=== PATIENT | female | born 1970 | race Caucasian/White ===

== ENCOUNTER → 2020-02-25 08:04 | Outpatient (BNVA) | payer MEDICARE, MEDICAID, SELFPAY | PROVIDERS: PCP Physician Assistant; Referring Provider Physician Assistant; Visit Provider Internal Medicine Endocrinology, Diabetes & Metabolism | DX: E03.8 Other specified hypothyroidism (principal); E06.3 Autoimmune thyroiditis; E55.9 Vitamin D deficiency, unspecified; Z79.899 Other long term (current) drug therapy | CPT/HCPCS: 99212 ==

== ENCOUNTER → 2020-03-08 13:33 | Outpatient (BNVA) | payer MEDICARE, MEDICAID, SELFPAY | PROVIDERS: PCP Physician Assistant; Referring Provider Physician Assistant; Visit Provider Physician Assistant | DX: R14.0 Abdominal distension (gaseous) (principal); Z80.0 Family history of malignant neoplasm of digestive organs | CPT/HCPCS: 99212 ==

== ENCOUNTER → 2020-12-28 12:04 | Outpatient (BNVA) | payer MEDICARE, MEDICAID, SELFPAY | PROVIDERS: PCP Physician Assistant; Visit Provider Physician Assistant | CPT/HCPCS: Q3014 ==

== ENCOUNTER 2021-01-05 15:52 | Outpatient (REF) | payer MEDICARE, MEDICAID, SELFPAY ==
[2021-01-05 16:13] LABS: MANUAL DIFF FLAG NO
[2021-01-05 16:23] LABS: Basophils Absolute Auto 0.1 X10*3/uL (0.0-0.2); Basophils Percent Auto 0.4 % (0-2); Eosinophils Absolute Auto 0.1 X10*3/uL (0.0-0.4); Eosinophils Percent Auto 0.9 % (0-4); Hematocrit 45.8 % (37-47); Hemoglobin 15.7 g/dl (12.0-16.0); Imm Gran Abs Auto 0.04 X10*3/uL (0.00-0.03); Imm Gran Pct Auto 0.4 % (0.0-0.4); Lymphocytes Absolute Auto 4.1 X10*3/uL (1.2-4.9); Lymphocytes Percent Auto 36.9 % (20-40); Mean Corpuscular HGB Conc 34.3 g/dl (31.0-35.0); Mean Corpuscular Hemoglobin 30.1 pg (27.0-33.0); Mean Corpuscular Volume 87.9 fL (80-98); Mean Platelet Volume 9.1 fL (9.4-12.3); Monocytes Absolute Auto 0.8 X10*3/uL (0.1-1.2); Monocytes Percent Auto 6.9 % (2-11); Neutrophils Absolute Auto 6.1 X10*3/uL (2.0-8.3); Neutrophils Percent Auto 54.5 % (45-73); Platelet Count 341 X10*3/uL (160-400); Red Blood Count 5.21 X10*6/uL (4.20-5.50); Red Cell Distribution Width 12.8 % (11.0-16.0); White Blood Count 11.1 X10*3/uL (4.8-10.8)
[2021-01-05 16:45] LABS: Alanine Aminotransferase 18 U/L (0-31); Albumin Level 4.5 g/dL (3.5-5.0); Alkaline Phosphatase 70 U/L (39-117); Anion Gap 18 (12-20); Aspartate Amino Transferase 18 U/L (5-31); Bilirubin Total 0.4 mg/dL (0.0-1.0); Blood Urea Nitrogen 9 mg/dL (9-16); Calcium 9.7 mg/dL (8.4-10.2); Carbon Dioxide 20 mmol/L (22-29); Chloride 102 mmol/L (96-108); Estimated Glomerular Filt Rate > 60; Glucose Random 137 mg/dL (60-115); Sodium 136 mmol/L (135-145); Total Protein 7.4 g/dL (6.5-8.0)
== END 2021-01-05 15:53 | disposition home or self-care (01) ==
LOC: HO.LAB 15:52
PROVIDERS: Visit Provider Physician Assistant
DX: R10.11 Right upper quadrant pain (principal); R13.10 Dysphagia, unspecified; A04.8 Other specified bacterial intestinal infections
CPT/HCPCS: 80053; 85025; 87338

== ENCOUNTER → 2021-07-28 07:25 | Outpatient (BNVA) | payer MEDICARE, MEDICAID, SELFPAY | PROVIDERS: PCP Physician Assistant; Referring Provider Physician Assistant; Visit Provider Nurse Practitioner | DX: R10.10 Upper abdominal pain, unspecified (principal); K58.1 Irritable bowel syndrome with constipation; R55 Syncope and collapse; J44.9 Chronic obstructive pulmonary disease, unspecified; D12.6 Benign neoplasm of colon, unspecified; Z80.0 Family history of malignant neoplasm of digestive organs | CPT/HCPCS: 99212 ==

== ENCOUNTER 2021-08-01 11:08 | Outpatient (REF) | payer MEDICARE, MEDICAID, SELFPAY ==
[2021-08-01 11:22] LABS: MANUAL DIFF FLAG NO
[2021-08-01 11:50] LABS: Basophils Percent Auto 0.3 % (0-2); Eosinophils Absolute Auto 0.1 X10*3/uL (0.0-0.4); Eosinophils Percent Auto 0.6 % (0-4); Hematocrit 41.9 % (37.0-47.0); Hemoglobin 13.9 g/dl (12.0-16.0); Imm Gran Abs Auto 0.02 X10*3/uL (0.00-0.03); Imm Gran Pct Auto 0.3 % (0.0-0.4); Lymphocytes Absolute Auto 2.2 X10*3/uL (1.2-4.9); Lymphocytes Percent Auto 28.2 % (20-40); Mean Corpuscular HGB Conc 33.2 g/dl (31.0-35.0); Mean Corpuscular Hemoglobin 29.3 pg (27.0-33.0); Mean Corpuscular Volume 88.4 fL (80.0-98.0); Mean Platelet Volume 9.4 fL (9.4-12.3); Monocytes Absolute Auto 0.4 X10*3/uL (0.1-1.2); Monocytes Percent Auto 4.9 % (2-11); Neutrophils Absolute Auto 5.1 x10*3/uL (2.0-8.3); Neutrophils Percent Auto 65.7 % (45-73); Platelet Count 308 X10*3/uL (160-400); Red Blood Count 4.74 X10*6/uL (4.20-5.50); Red Cell Distribution Width 13.1 % (11.0-16.0); White Blood Count 7.8 X10*3/uL (4.8-10.8)
[2021-08-01 12:37] LABS: Alanine Aminotransferase 15 U/L (0-31); Albumin Level 4.4 g/dL (3.5-5.0); Alkaline Phosphatase 56 U/L (39-117); Amylase 72 U/L (28-100); Anion Gap 11 (12-20); Aspartate Amino Transferase 14 U/L (5-31); Bilirubin Total 0.5 mg/dL (0.0-1.0); Blood Urea Nitrogen 9 mg/dL (9-16); Calcium 9.7 mg/dL (8.4-10.2); Carbon Dioxide 29 mmol/L (22-29); Chloride 102 mmol/L (96-108); Estimated Glomerular Filt Rate > 60; Glucose Random 102 mg/dL (60-115); Lipase 20 U/L (8-78); Sodium 138 mmol/L (135-145); Total Protein 7.2 g/dL (6.5-8.0)
[2021-08-04 13:07] LABS: Transglutaminase Ab IgG <1.0 U/mL; Transglutaminase IgA <1.0 U/mL
== END 2021-08-01 11:09 | disposition home or self-care (01) ==
LOC: HO.LAB 11:08
PROVIDERS: PCP Physician Assistant; Visit Provider Nurse Practitioner
DX: Z01.82 Encounter for allergy testing (principal); R10.10 Upper abdominal pain, unspecified; K86.1 Other chronic pancreatitis; Z80.0 Family history of malignant neoplasm of digestive organs; J44.9 Chronic obstructive pulmonary disease, unspecified; R55 Syncope and collapse
CPT/HCPCS: 36415; 80053; 82150; 83690; 85025; 86003; 86364

== ENCOUNTER → 2021-09-01 09:17 | Outpatient (BNVA) | payer MEDICARE, MEDICAID, SELFPAY | PROVIDERS: PCP Physician Assistant; Referring Provider Physician Assistant; Visit Provider Nurse Practitioner | DX: K58.9 Irritable bowel syndrome, unspecified (principal) | CPT/HCPCS: 99212 ==

== ENCOUNTER 2021-09-21 09:13 | Outpatient (REF) | payer MEDICARE, MEDICAID, SELFPAY ==
[2021-09-21 11:40] LABS: Creatinine Urine 76.34 mg/dL; Microalbum/Creatinine Ratio Ur 6.5 ug/mg cr
[2021-09-21 11:58] LABS: Free T4 (Free Thyroxine) 1.58 ng/dL (0.71-1.85); Thyroid Stimulating Hormone 0.55 uIU/mL (0.32-4.0); Vitamin D 25-OH Total 9.4 ng/mL (>30)
== END 2021-09-21 09:14 | disposition home or self-care (01) ==
LOC: HO.LAB 09:13
PROVIDERS: Absent Provider Physician Assistant; PCP Physician Assistant; Visit Provider Internal Medicine Endocrinology, Diabetes & Metabolism
DX: E03.9 Hypothyroidism, unspecified (principal); I10 Essential (primary) hypertension
CPT/HCPCS: 36415; 82043; 82306; 84439; 84443

== ENCOUNTER 2021-10-04 08:25 | Outpatient (REF) | payer MEDICARE, MEDICAID, SELFPAY ==
--- NOTE | ~2021-10-04 | XR_ITS ---
EXAMINATION: XR LUMBOSACRAL SPINE CLINICAL INFORMATION: Low back pain. COMPARISON: None TECHNIQUE: Three views of the lumbosacral spine. FINDINGS: There are 5 lumbar-type vertebral bodies that are normal in height. Grade 1 retrolisthesis L3 on L4. Degenerative disc disease L4-L5 and L5-S1 with associated anterior degenerative osteophytes. Increased density at the level of the facet joints also at these lower lumbar levels suggestive of facet osteoarthropathy. The posterior elements are intact. The remaining intervertebral disc spaces are well preserved. Limited views of the sacrum and sacroiliac joints are unremarkable. Vascular calcifications of the aorta. XR/XR lumbar spine 2-3V IMPRESSION: Degenerative changes of the lower lumbar spine at the L4-L5 and L5-S1 levels as described above.
== END 2021-10-04 08:26 | disposition home or self-care (01) ==
LOC: HO.XRAY 08:25
PROVIDERS: Absent Provider Physician Assistant; PCP Physician Assistant; Referring Provider Nurse Practitioner; Visit Provider Internal Medicine Cardiovascular Disease
DX: M54.50 Low back pain, unspecified (principal); R55 Syncope and collapse; R07.89 Other chest pain
CPT/HCPCS: 72100; 93005; 99202

== ENCOUNTER → 2021-10-07 07:26 | Outpatient (REF) | payer MEDICARE, MEDICAID, SELFPAY ==
--- NOTE | 2021-10-07 07:29 | CA_ITS ---
Transthoracic Echocardiogram Patient (Last, First, Middle): Basilia Sawyer, Gender: Female Date of : 1970 Age: 51 Procedure Date: 10/07/2021 Procedure Type: Transthoracic Echocardiogram Location: OP Height: 165.1 cm Weight: 58.97 kg BSA: 1.65 m2 Heart Rate: bpm BP: 130 / 80 mmHg Harness Mender: TO Referring MD: Ab Mcdonough MD Symptoms: R55 - Syncope and collapse Study Quality: Fair ECG Rhythm: Sinus Conclusions: - The left ventricular systolic function is normal. The calculated ejection fraction is 59% by biplane method. - No obvious valvular pathology seen on this study. Findings Left Ventricle Normal left ventricular cavity size. There is normal left ventricular wall thickness. The left ventricular systolic function is normal. The calculated ejection fraction is 59% by biplane method. There is no evidence of regional wall motion abnormalities. Diastolic function is normal for age. Right Ventricle Normal right ventricular cavity size and systolic function. Atria Both atria are normal in size. Aortic Valve There is a normal trileaflet aortic valve. There is no aortic valve stenosis. There is no aortic valve regurgitation. Mitral Valve The mitral valve appears normal. There is trace mitral valve regurgitation. There is no mitral valve stenosis. Pulmonic Valve The pulmonic valve is likely normal. Tricuspid Valve Normal tricuspid valve structure. There is trace tricuspid valve regurgitation. The pulmonary artery systolic pressure is normal. Great Vessels The aortic annulus, sinuses of valsalva, and asc aorta are normal in size. Venous The inferior vena cava is normal in size and collapses greater than 50% with inspiration. Pericardium/Pleural There is no evidence of pericardial effusion. Prior Study Comparison No prior study available for comparison. Recommendations, Care & Conclusions No obvious valvular pathology seen on this study. Measurements 2D Linear Measurements IVSd: 0.79 0.6-0.9/0.6-1.0 cm LVIDd: 4.49 3.9-5.3/4.2-5.9 cm LVIDd Index: 2.72 2.4-3.2/2.2-3.1 cm/m2 LVIDs: 3.31 2.0-3.6 cm LVPWd: 0.77 0.7-1.1 cm LA Diam: 3.30 2.7-3.8/3.0-4.0 cm LAIDs Index: 2.00 1.5-2.3 cm/m2 LV Mass: 135.71 67-162/88-224 g LV Mass Index: 82.25 43-95/49-115 g/m2 LVOT Diam: 2.00 3.0+(-)1.3 cm 2D Systolic Function EF 4C: 59.70 >55% EF 2C: 53.00 >55% EF BiP: 58.90 >55% Mitral Valve MV Pk E: 0.75 MV PK A: 0.69 MV Decel Time: 185.00 E/A: 1.10 E'Lateral: 12.50 E'Medial: 9.03 E/E' Med: 8.30 E/E' Lat: 6.00 PHT: 54.00 MVA PHT: 4.07 Decel Dade: 4.08 Aortic Valve AoV Pk Patrick: 1.25 AoV Mn Patrick: 0.91 AoV VTI: 0.31 AoV Pk Grad: 6.00 Aov Mn Grad: 4.00 MEIR Cont.VTI: 1.91 LVOT LVOT Pk Patrick: 0.90 LVOT Mn Patrick: 0.56 LVOT VTI: 0.19 LVOT Pk Grad: 3.00 LVOT Mn Grad: 1.00 LVOT Diam: 2.00 LVOT Area: 3.14 Diastolic Function MV Pk E: 0.75 MV Pk A: 0.69 E/A: 1.10 E'Medial: 9.03 E/E' Med: 8.30 E' Laterial: 12.50 E/E' Lat: 6.00 Right Ventricle TAPSE (mm): 20.00 TVS' Patrick: 10.80 Tricuspid Valve TR Pk Patrick: 2.13 TR Pk Grad: 18.00 RA Press: 3.00 RVSP: 21.00 Great Vessels Aorta Sinus of Valsalva: 3.23 2.0-3.5 cm Ao Asc: 3.10 2.1-3.4 cm Updated in Other Vendor System with Status of Final Ambrose Matta MD electronically signed on 10/09/2021 11:35:01 AM with status of Final
--- NOTE | 2021-10-07 07:30 | HM_ITS ---
* Total monitoring time 3 days. * Underlying rhythm is sinus. Average rate 82/Min. Range 45 to 166/Min. * About 19% the time, rate > 100/Min; sinus tachycardia. * No atrial fibrillation or flutter or AV blocks or pauses. * Rare PVCs. Minimal burden. * No patient events. MTDD
== END ==
LOC: HO.CARD 07:26
PROVIDERS: PCP Physician Assistant; Visit Provider Internal Medicine Cardiovascular Disease
DX: R55 Syncope and collapse (principal)
CPT/HCPCS: 93242; 93306

== ENCOUNTER → 2021-10-11 07:48 | Outpatient (REF) | payer MEDICARE, MEDICAID, SELFPAY ==
--- NOTE | ~2021-10-11 | NM_ITS ---
EXAMINATION: NM RADIONUCLIDE SOLID FOOD GASTRIC EMPTYING 4-HOUR STUDY CLINICAL INFORMATION: Upper abdominal pain. COMPARISON: None. TECHNIQUE: A standard meal consisting of 4 oz of Egg Beaters brand tagged with 890 microcuries Tc-99m Sulfur Colloid, 8 oz water and 3/4 slices of toast with jelly was administered orally to the patient. Images were obtained using a dual head gamma camera in the anterior and posterior projections over of the stomach immediately post ingestion and at hourly intervals up to 4 hours post ingestion. The anterior and posterior counts at each time interval were averaged using the geometric mean and expressed as percentage of the immediate post ingestion counts. FINDINGS: There is good visualization of activity in the stomach immediately post ingestion. As the study progresses, there is good clearance of activity from the stomach and visualization of progressively increasing small bowel activity. By the end of the study, there is almost no retention noted in the stomach. Retention in the stomach at each time interval was: 1 hour 79% (normal 37%-90%) 2 hours 36% (normal 30%-60%) 3 hours 11% 4 hours 9% (normal 0%-10%) NM/NM gastric emptying study IMPRESSION: Normal 4-hour solid food gastric emptying study.
== END ==
LOC: HO.NUCMED 07:48
PROVIDERS: PCP Physician Assistant; Visit Provider Nurse Practitioner
DX: R10.10 Upper abdominal pain, unspecified (principal); K86.1 Other chronic pancreatitis; Z80.0 Family history of malignant neoplasm of digestive organs
CPT/HCPCS: 78264; A9541

== ENCOUNTER 2021-10-20 14:53 | Outpatient (RCR) | payer MEDICARE, MEDICAID, SELFPAY ==
--- NOTE | 2021-10-20 15:52 | MHC.PT.EP ---
[facility] [place] Office [place] Office [place] Office [address] Fe Lainez [address] [phone] F: [phone] F: [phone] F: [phone] F: [phone] Physical Therapy Plan of Care Date of Evaluation: Date of Surgery: Diagnosis: unspecified thoracic, thoracolumbar and lumbosacral IVD disorder Assessment: 51 y/o F referred to PT with thoracic, thoracolumbar, and lumbosacral intervertebral disorder. She reports LBP of insidious onset that worsened with carrying groceries up 3 flights of stairs. 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 Sitting is most painful. Examination shows decreased lumbar AROM, decreased hip/core strength, hypomobile L4-5, increased pain, and impaired postural awareness. Recommend PT 2x/week (pt would prefer 1x/week) for 5 weeks to address impairments, implement HEP, and optimize functional mobility. Frequency and Duration: The patient will be seen 1x/week for 5 weeks Short Term Goals: 3 weeks 1. I with HEP 2. Improve lumbar AROM to 75% to faciliate dressing Mcc Goals: 5 weeks 1. I with HEP and self management of sx 2. Pt will be able to sit > 30 min with pain < 3/10 and use of lumbar roll 3. Pt will be able to walk > 3 miles with pain < 3/10 Treatment Plan: Modalities to reduce pain, spasms and effusion. Manual therapy to restore motion and function. Therapeutic exercise to improve strength and flexibility. Neuromuscular re-education for posture and balance. Therapeutic activities to return to functional activities of daily living. Electronically signed by: Ca Austin PT Please sign and return to therapist. Thank you for your referral.
--- NOTE | 2021-11-15 16:01 | MHC.PT.DC ---
[facility] [place] Office [place] Office [place] Office [address] Fe Lainez [address] [phone] F: [phone] F: [phone] F: [phone] F: [phone] Physical Therapy Discharge Report Diagnosis: unspecified thoracic, thoracolumbar and lumbosacral IVD disorder Date of Surgery: Date of Evaluation: 10/20/21 Date of Discharge: 11/15/21 Treatments to Date: 1 Cancellations to Date: 5 No Shows to Date: 0 Discharge Status: Patient Elected to Stop Discharge Summary: Pt called to self d/c following evaluation due to pain levels. EVAL: 51 y/o F referred to PT with thoracic, thoracolumbar, and lumbosacral intervertebral disorder. She reports LBP of insidious onset that worsened with carrying groceries up 3 flights of stairs. 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 Sitting is most painful. Examination shows decreased lumbar AROM, decreased hip/core strength, hypomobile L4-5, increased pain, and impaired postural awareness. Recommend PT 2x/week (pt would prefer 1x/week) for 5 weeks to address impairments, implement HEP, and optimize functional mobility. Electronically signed by: Ca Austin PT Please sign and return to therapist. Thank you for your referral.
== END 2021-11-15 16:02 | disposition home or self-care (01) ==
LOC: HO.PT 14:53
PROVIDERS: PCP Physician Assistant; Visit Provider Physician Assistant
DX: M51.9 Unspecified thoracic, thoracolumbar and lumbosacral intervertebral disc disorder (principal)
CPT/HCPCS: 97110; 97112; 97161

== ENCOUNTER → 2021-10-21 07:51 | Outpatient (BNVA) | payer MEDICARE, MEDICAID, SELFPAY | PROVIDERS: PCP Physician Assistant; Visit Provider Internal Medicine Endocrinology, Diabetes & Metabolism | DX: K57.92 Diverticulitis of intestine, part unspecified, without perforation or abscess without bleeding (principal); K86.1 Other chronic pancreatitis; E03.8 Other specified hypothyroidism; E06.3 Autoimmune thyroiditis; E55.9 Vitamin D deficiency, unspecified | CPT/HCPCS: 99212 ==

== ENCOUNTER 2021-11-15 08:37 | Outpatient (REF) | payer MEDICARE, MEDICAID, SELFPAY ==
--- NOTE | ~2021-11-15 | CT_ITS ---
EXAMINATION: CT ABDOMEN WITHOUT CONTRAST CLINICAL INFORMATION: Upper abdominal pain. COMPARISON: Nuclear medicine gastric emptying study 10/11/2021. TECHNIQUE: Contiguous axial thin section helical images of the abdomen were performed without contrast. The data set was reformatted in the coronal and sagittal planes and reviewed on an independent workstation. This CT examination was performed using dose optimization techniques as appropriate, variously including the following: *Automated exposure control *Adjustment of mA and/or kV according to patient size (this includes techniques or standardized protocols for targeted exams where dose is matched to indication/reason for exam; i.e. extremities or head) *Use of iterative reconstruction technique DLP: 194 mGy-cm FINDINGS: LUNG BASES: Minimal atelectatic changes seen in the right lung base. The heart size is normal. LIVER, GALLBLADDER, BILIARY TREE: The liver is homogeneous in density, normal size and contour. There is a 1.5 cm lesion adjacent to the ligament teres extending to the tamara hepatis question small cyst. No additional lesions seen. There is no intrahepatic ductal dilatation. The gallbladder is unremarkable. PANCREAS: The pancreas is homogeneous in density, normal size and shape. No focal lesion seen. SPLEEN: The spleen is normal size and density. ADRENAL GLANDS AND KIDNEYS: Bilateral adrenal glands are normal size and shape. Both kidneys are normal size and shape. No radiopaque calculi or hydronephrosis seen. There is no perinephric stranding. BOWEL LOOPS: There is scattered stool and gas seen in the colon without distention. Oral contrast opacified small bowel loops are unremarkable. The stomach is nondistended with oral contrast within. Small umbilical hernia containing fat is noted LYMPH NODES: No abnormal retroperitoneal or mesenteric lymph nodes seen. VASCULAR: Unremarkable. BONES: There is vacuum disc phenomena L4-L5, L5-S1 disc levels with ventral spurring. No fracture or lytic process seen. CT/CT abdomen wo con IMPRESSION: Likely left hepatic lobe cyst adjacent to the ligament teres. Moderate constipation. The small bowel loops are unremarkable. Fleischner guidelines were followed.
[2021-11-15] MEDS: Barium Sulfate Oral (Berry) 450 ML ORAL.SUSP 900 ML PO (10:02)
== END 2021-11-15 08:38 | disposition home or self-care (01) ==
LOC: HO.CT 08:37
PROVIDERS: PCP Physician Assistant; Visit Provider Nurse Practitioner
DX: R10.10 Upper abdominal pain, unspecified (principal); K86.1 Other chronic pancreatitis; Z80.0 Family history of malignant neoplasm of digestive organs
CPT/HCPCS: 74150

== ENCOUNTER 2021-12-27 03:35 | Emergency (ER) | payer MEDICARE, MEDICAID, SELFPAY ==
--- NOTE | ~2021-12-27 | XR_ITS ---
EXAMINATION: XR CHEST CLINICAL INFORMATION: Shortness of breath. Sweats. COMPARISON: 09/17/2019 TECHNIQUE: 2 views of the chest were obtained. FINDINGS: Normal symmetric lung volumes. No parenchymal consolidation. No pleural effusion. No pneumothorax. Cardiomediastinal silhouette and pulmonary vascularity are within normal limits. No acute osseous abnormalities. XR/XR chest 2V IMPRESSION: No acute findings
[2021-12-27 03:51] VITALS: BP 200/100; BP 204/114; PULSE 69; PULSE 70; RESP 14; O2SAT 100; O2SAT 99; BMI 21.6
[2021-12-27 03:54] VITALS: BP 204/114; PULSE 69; RESP 14; O2SAT 99
[2021-12-27 04:00] VITALS: BP 204/114; PULSE 69; RESP 14; O2SAT 99
--- NOTE | 2021-12-27 04:18 | ECG_ITS ---
Test Reason : DIZZINESS Blood Pressure : / mmHG Vent. Rate : 059 BPM Atrial Rate : 059 BPM P-R Int : 162 ms QRS Dur : 088 ms QT Int : 414 ms P-R-T Axes : 048 075 079 degrees QTc Int : 409 ms Sinus bradycardia Otherwise normal ECG No previous ECGs available Referred By: Lowell Crabtree Electronically Signed By:FABIÁN MONTES
--- NOTE | 2021-12-27 04:22 | ED.GENADULT ---
HPI - General Adult General Chief complaint: General Medical Stated complaint: HTN Time Seen by Provider: 12/27/21 04:11 Source: patient Limitations: no limitations History of Present Illness HPI narrative: This is a 51-year-old female who complains of night sweats that began over a week ago. The patient has also had a feeling of tightness in her left chest more recently in the last few days. She has also had a sensation at times as though she is crawling out of her skin. She has a chronic cough secondary to smoking, denies any change. She feels mildly short of breath. She has had diarrhea recently. She has had nausea but no vomiting. She denies abdominal pain. She does have history of hypertension and takes lisinopril. She states she went through menopause over 10 years ago. Related Data Home Medications Medication Instructions Recorded Confirmed sennosides 8.6 mg tablet (senna) 17.2 mg PO BEDTIME PRN constipation 10/21/21 Previous Rx's Medication Instructions Recorded lisinopril 10 mg tablet 10 mg PO DAILY 90 days #90 tabs 07/04/21 levothyroxine 100 mcg tablet 100 mcg PO QAM 30 days #30 caps 10/03/21 cholecalciferol (vitamin D3) 125 125 mcg PO DAILY #30 caps 10/21/21 mcg (5,000 unit) capsule cholecalciferol (vitamin D3) 50 50 mcg PO DAILY #30 caps 10/21/21 mcg (2,000 unit) capsule Allergies Allergy/AdvReac Type Severity Reaction Status Date / Time amoxicillin [From AUGMENTIN] Allergy Severe Anaphylaxis Verified 10/21/21 08:38 clavulanic acid Allergy Severe Anaphylaxis Verified 10/21/21 08:38 [From AUGMENTIN] Compazine Allergy Unknown unknown Verified 10/21/21 08:38 ketorolac [From Toradol] Allergy Unknown Anaphylaxis Verified 10/21/21 08:38 prochlorperazine Allergy Unknown INVOLUNTARY Verified 10/21/21 08:38 [From COMPAZINE] SPASMS Review of Systems Review of Systems: Yes all other systems are reviewed and are negative Constitutional: Constitutional: Reports as per HPI, Denies fever(s) and Reports night sweats Eyes: Eyes: Reports as per HPI and Reports no additional eye complaints ENT: Reports system reviewed and no additional complaints, except as documented, Reports as per HPI, Denies nasal congestion, Denies nasal discharge and Denies sore throat Cardiovascular: Cardiovascular: Reports as per HPI, Reports chest pain and Reports dyspnea Respiratory: Respiratory: Reports as per HPI, Reports cough and Reports dyspnea Gastrointestinal: Gastrointestinal: Reports as per HPI, Denies abdominal pain, Reports diarrhea and Denies vomiting Genitourinary: Genitourinary: Reports as per HPI, Denies hematuria, Denies urinary frequency and Denies dysuria Musculoskeletal: Musculoskeletal: Reports no additional musculoskeletal complaints and Denies numbness Integumentary/Breasts: Skin/Breast: Reports as per HPI and Denies rash Neurologic: Reports as per HPI, Denies focal weakness and Denies numbness Psychiatric: Psychiatric: Reports no additional psychiatric complaints and Reports as per HPI Endocrine: Endocrine: Reports no additional endocrine complaints and Reports as per HPI Hematologic/Lymphatic: Hematologic/Lymphatic: Reports no additional hematologic/lymphatic complaints, Reports as per HPI and Reports other (No peripheral edema) [facility] Past Medical History Medical History Dysphagia Hx of CT scan Hypothyroidism Vitamin D deficiency Surgical History History of throat surgery Hx of section Hx of tonsillectomy Family History Family History Mother Alzheimer's dementia CVD (cardiovascular disease) Father Colon cancer Maternal Grandfather Pancreatic cancer Social History Social History Household Members Other:: lives at home with 20-year-old daughter Housing: Apartment Alcohol intake: never Patient Tobacco Use Status: Current everyday Tobacco user Tobacco use type: Cigarette Cigarettes Per Day: 10 e-Cigarette/Vaping Use: Never Used Second Hand Smoke Exposure: No Use of substances other than those prescribed or required for medical reasons: Yes Substance Use Type: Marijuana Substance Use Frequency: Occasionally Advance Directives: No Patient : No service: No Current occupational status: disabled Cognitive needs: No Hearing needs: No Vision needs: No Physical Exam ED Vital Signs: Vital Signs - 24 hr 12/27/21 03:51 12/27/21 03:54 12/27/21 04:00 Pulse Rate 69 69 69 Respiratory Rate 14 14 14 Blood Pressure 204/114 H 204/114 H 204/114 H Pulse Oximetry 99 99 99 Oxygen Delivery Method Room Air Room Air Room Air BMI result Body Mass Index 21.6 Const General: no acute distress Orientation/consciousness: patient oriented x3 HENMT Head: Yes normal to inspection General nose exam: Normal external nose present Mouth: moist mucous membranes Throat: Yes posterior oropharynx normal, Yes tonsils normal and Yes uvula midline Eyes Eyelids: Yes eyelids normal Conjunctivae: conjunctivae normal Pupils: Equal, round and reactive pupils present Neck Neck: Yes supple Resp Effort & Inspection: normal respiratory effort Auscultation: clear to auscultation bilaterally Cardio Rate: regular rate Rhythm: regular rhythm Heart sounds: S1 normal heart sound present, S2 normal heart sound present, no gallops, no murmurs and no rubs GI Inspection: No distended Palpation (GI): Soft to palpation and nontender Auscultation: normal bowel sounds Skin General skin exam: other (Warm and dry) Neuro General: patient oriented x3 and CN's II-XI intact bilaterally Cranial nerves: Yes Equal, round and reactive pupils present Extrem General: Yes no pedal edema Psych Affect: normal affect Attitude: cooperative Medical Decision Making MDM Narrative Medical decision making narrative: Patient with multiple complaints, does have moderate hypertension, is on lisinopril. Blood pressure improved with an additional 10 mg of lisinopril here, as well as Ativan, IV fluids. Patient reports night sweats, palpitations, mild shortness of breath, diarrhea. Patient did have PVCs on the monitor. CBC, chemistry, magnesium, urinalysis and a chest x-ray, and EKG normal. Patient is safe for outpatient follow-up. Recommend patient double her lisinopril to 20 mg daily, follow-up with her PCP and canvas goods fabricator Lab Data Lab results reviewed: Yes I reviewed the patient's lab results. Result diagrams: 12/27/21 04:59 12/27/21 04:59 Labs: Lab Results 12/27/21 12/27/21 12/27/21 Range/Units 04:59 04:59 04:59 WBC 10.3 (4.8-10.8) X10*3/uL RBC 4.77 (4.20-5.50) X10*6/uL Hgb 14.2 (12.0-16.0) g/dl Hct 40.4 (37.0-47.0) % MCV 84.7 (80.0-98.0) fL MCH 29.8 (27.0-33.0) pg MCHC 35.1 H (31.0-35.0) g/dl RDW 12.8 (11.0-16.0) % Plt Count 270 (160-400) X10*3/uL MPV 8.9 L (9.4-12.3) fL Immature Gran % (Auto) 0.3 (0.0-0.4) % Neut % (Auto) 79.1 H (45-73) % Lymph % (Auto) 15.3 L (20-40) % Stanton % (Auto) 3.8 (2-11) % Eos % (Auto) 1.1 (0-4) % Baso % (Auto) 0.4 (0-2) % Lymph # (Auto) 1.6 (1.2-4.9) X10*3/uL Stanton # (Auto) 0.4 (0.1-1.2) X10*3/uL Eos # (Auto) 0.1 (0.0-0.4) X10*3/uL Baso # (Auto) 0.0 (0.0-0.2) X10*3/uL Abs Immat Gran (auto) 0.03 (0.00-0.03) X10*3/uL Absolute Neuts (auto) 8.2 (2.0-8.3) x10*3/uL Absolute Nucleated RBC 0.000 (0.0-0.012) X10*3/uL Nucleated RBC % (auto) 0.0 (0.0-0.2) /100WBC Sodium 141 (135-145) mmol/L Potassium 4.1 (3.3-5.1) mmol/L Chloride 106 (96-108) mmol/L Carbon Dioxide 22 (22-29) mmol/L Anion Gap 17 (12-20) BUN 7 L (9-16) mg/dL Creatinine 0.70 (0.5-1.4) mg/dL Estim Creat Clear Calc 84.6 Estimated GFR > 60 Random Glucose 106 (60-115) mg/dL Calcium 9.5 (8.4-10.2) mg/dL Magnesium 1.9 (1.6-2.6) mg/dL Total Bilirubin 0.5 (0.0-1.0) mg/dL AST 18 (5-31) U/L ALT 12 (0-31) U/L Alkaline Phosphatase 52 (39-117) U/L Troponin I High Sens < 3.5 (<3.5-17.0) ng/L Total Protein 7.3 (6.5-8.0) g/dL Albumin 4.2 (3.5-5.0) g/dL TSH (0.32-4.0) uIU/mL Urine Color Urine Appearance Urine pH (5.0-8.0) Ur Specific Mather (1.005-1.025) Urine Protein (Neg-Trace) mg/dL Urine Glucose (UA) (Negative) mg/dL Urine Ketones (Negative) mg/dL Urine Blood (Negative) Urine Nitrite (Negative) Ur Leukocyte Esterase (Negative) 12/27/21 12/27/21 Range/Units 04:59 04:59 WBC (4.8-10.8) X10*3/uL RBC (4.20-5.50) X10*6/uL Hgb (12.0-16.0) g/dl Hct (37.0-47.0) % MCV (80.0-98.0) fL MCH (27.0-33.0) pg MCHC (31.0-35.0) g/dl RDW (11.0-16.0) % Plt Count (160-400) X10*3/uL MPV (9.4-12.3) fL Immature Gran % (Auto) (0.0-0.4) % Neut % (Auto) (45-73) % Lymph % (Auto) (20-40) % Stanton % (Auto) (2-11) % Eos % (Auto) (0-4) % Baso % (Auto) (0-2) % Lymph # (Auto) (1.2-4.9) X10*3/uL Stanton # (Auto) (0.1-1.2) X10*3/uL Eos # (Auto) (0.0-0.4) X10*3/uL Baso # (Auto) (0.0-0.2) X10*3/uL Abs Immat Gran (auto) (0.00-0.03) X10*3/uL Absolute Neuts (auto) (2.0-8.3) x10*3/uL Absolute Nucleated RBC (0.0-0.012) X10*3/uL Nucleated RBC % (auto) (0.0-0.2) /100WBC Sodium (135-145) mmol/L Potassium (3.3-5.1) mmol/L Chloride (96-108) mmol/L Carbon Dioxide (22-29) mmol/L Anion Gap (12-20) BUN (9-16) mg/dL Creatinine (0.5-1.4) mg/dL Estim Creat Clear Calc Estimated GFR Random Glucose (60-115) mg/dL Calcium (8.4-10.2) mg/dL Magnesium (1.6-2.6) mg/dL Total Bilirubin (0.0-1.0) mg/dL AST (5-31) U/L ALT (0-31) U/L Alkaline Phosphatase (39-117) U/L Troponin I High Sens (<3.5-17.0) ng/L Total Protein (6.5-8.0) g/dL Albumin (3.5-5.0) g/dL TSH 0.85 (0.32-4.0) uIU/mL Urine Color Yellow Urine Appearance Clear Urine pH 7.0 (5.0-8.0) Ur Specific Mather <= 1.005 (1.005-1.025) Urine Protein Negative (Neg-Trace) mg/dL Urine Glucose (UA) Negative (Negative) mg/dL Urine Ketones Negative (Negative) mg/dL Urine Blood Negative (Negative) Urine Nitrite Negative (Negative) Ur Leukocyte Esterase Negative (Negative) Imaging Data Chest x-ray: Radiologist's impression: No acute pathology ECG Data Attestation: I personally reviewed and interpreted this ECG as follows: Interpretation: Sinus rhythm rate of 59. No ST elevation or depression. No ectopy. Normal QRS axis. Note: PVCs seen occasionally on the monitor Discharge Plan Discharge Clinical Impression: HTN (hypertension), Night sweats, Frequent PVCs Patient Disposition: Home, Self-Care Instructions: Hypertension (ED), Premature Ventricular Contractions (ED) Additional Instructions: Follow-up with your primary care physician, as well as your canvas goods fabricator. Double your lisinopril to 20 mg daily. Return for any new or worsened symptoms. Prescriptions: No Action lisinopril 10 mg tablet 10 mg PO DAILY 90 Days Qty: 90 1RF levothyroxine 100 mcg tablet 100 mcg PO QAM 30 Days Qty: 30 3RF cholecalciferol (vitamin D3) 125 mcg (5,000 unit) capsule 125 mcg PO DAILY Qty: 30 5RF cholecalciferol (vitamin D3) 50 mcg (2,000 unit) capsule 50 mcg PO DAILY Qty: 30 5RF sennosides [senna] 8.6 mg tablet 17.2 mg PO BEDTIME PRN (Reason: constipation) Interventions: ED Discharge Assessment Last Done: 12/27/21 06:05 Discharge Date/Time: 12/27/21 06:07
[2021-12-27] MEDS: LORazepam 1 MG TABLET PO (04:50)
[2021-12-27] MEDS: lisinopriL 10 MG TABLET PO (04:50)
[2021-12-27] MEDS: 0.9 % Sodium Chloride 1,000 ML 999 ML IV (05:00)
[2021-12-27 05:05] LABS: Basophils Percent Auto 0.4 % (0-2); Eosinophils Absolute Auto 0.1 X10*3/uL (0.0-0.4); Eosinophils Percent Auto 1.1 % (0-4); Hematocrit 40.4 % (37.0-47.0); Hemoglobin 14.2 g/dl (12.0-16.0); Imm Gran Abs Auto 0.03 X10*3/uL (0.00-0.03); Imm Gran Pct Auto 0.3 % (0.0-0.4); Lymphocytes Absolute Auto 1.6 X10*3/uL (1.2-4.9); Lymphocytes Percent Auto 15.3 % (20-40); MANUAL DIFF FLAG NO; Mean Corpuscular HGB Conc 35.1 g/dl (31.0-35.0); Mean Corpuscular Hemoglobin 29.8 pg (27.0-33.0); Mean Corpuscular Volume 84.7 fL (80.0-98.0); Mean Platelet Volume 8.9 fL (9.4-12.3); Monocytes Absolute Auto 0.4 X10*3/uL (0.1-1.2); Monocytes Percent Auto 3.8 % (2-11); Neutrophils Absolute Auto 8.2 x10*3/uL (2.0-8.3); Neutrophils Percent Auto 79.1 % (45-73); Platelet Count 270 X10*3/uL (160-400); Red Blood Count 4.77 X10*6/uL (4.20-5.50); Red Cell Distribution Width 12.8 % (11.0-16.0); White Blood Count 10.3 X10*3/uL (4.8-10.8)
[2021-12-27 05:15] LABS: Appearance Urine Clear; Color Urine Yellow; Glucose Urine UA Negative (Negative); Leukocyte Esterase Urine Negative (Negative); Nitrite Urine Negative (Negative); Specific Gravity - Urine <= 1.005 (1.005-1.025); Urine Blood Negative (Negative); Urine Ketones Negative (Negative); Urine Protein Negative (Neg-Trace)
[2021-12-27 05:24] LABS: Troponin-I High Sensitivity < 3.5 ng/L (<3.5-17.0)
[2021-12-27 05:27] LABS: Alanine Aminotransferase 12 U/L (0-31); Albumin Level 4.2 g/dL (3.5-5.0); Alkaline Phosphatase 52 U/L (39-117); Anion Gap 17 (12-20); Aspartate Amino Transferase 18 U/L (5-31); Bilirubin Total 0.5 mg/dL (0.0-1.0); Blood Urea Nitrogen 7 mg/dL (9-16); Calcium 9.5 mg/dL (8.4-10.2); Carbon Dioxide 22 mmol/L (22-29); Chloride 106 mmol/L (96-108); Creatinine Clr Calc Pharmacy 84.6; Estimated Glomerular Filt Rate > 60; Glucose Random 106 mg/dL (60-115); Magnesium 1.9 mg/dL (1.6-2.6); Potassium 4.1 mmol/L (3.3-5.1); Sodium 141 mmol/L (135-145); Total Protein 7.3 g/dL (6.5-8.0)
[2021-12-27 05:44] LABS: TSH reflex Free T4 0.85 uIU/mL (0.32-4.0)
== END 2021-12-27 06:07 | disposition home or self-care (01) ==
PROVIDERS: Emergency Provider Emergency Medicine; PCP Physician Assistant
DX: I10 Essential (primary) hypertension (principal); R61 Generalized hyperhidrosis; I49.3 Ventricular premature depolarization; F17.200 Nicotine dependence, unspecified, uncomplicated
CPT/HCPCS: 36415; 71046; 80053; 81003; 83735; 84443; 84484; 85025; 93005; 99283; 99285

== ENCOUNTER 2021-12-29 10:25 | Outpatient (REF) | payer MEDICARE, MEDICAID, SELFPAY ==
[2021-12-29 11:24] LABS: Hematocrit 40.9 % (37.0-47.0); Hemoglobin 13.9 g/dl (12.0-16.0); Mean Corpuscular Hemoglobin 29.8 pg (27.0-33.0); Mean Corpuscular Volume 87.6 fL (80.0-98.0); Mean Platelet Volume 9.6 fL (9.4-12.3); Platelet Count 303 X10*3/uL (160-400); Red Blood Count 4.67 X10*6/uL (4.20-5.50); Red Cell Distribution Width 13.2 % (11.0-16.0); White Blood Count 7.9 X10*3/uL (4.8-10.8)
[2021-12-29 12:15] LABS: Anion Gap 17 (12-20); Blood Urea Nitrogen 9 mg/dL (9-16); Calcium 9.7 mg/dL (8.4-10.2); Carbon Dioxide 24 mmol/L (22-29); Chloride 103 mmol/L (96-108); Estimated Glomerular Filt Rate > 60; Glucose Random 103 mg/dL (60-115); Potassium 3.9 mmol/L (3.3-5.1); Rheumatoid Factor < 15.0 IU/mL (<15.0); Sodium 140 mmol/L (135-145)
[2021-12-31 23:12] LABS: Anti Nuclear Antibody Screen NEGATIVE (NEGATIVE)
[2022-01-03 12:53] LABS: Anti DNA DS Antibody 2 IU/mL
== END 2021-12-29 10:26 | disposition home or self-care (01) ==
LOC: HO.LAB 10:25
PROVIDERS: Absent Provider Physician Assistant; PCP Physician Assistant; Visit Provider Internal Medicine Endocrinology, Diabetes & Metabolism
DX: R00.2 Palpitations (principal)
CPT/HCPCS: 36415; 80048; 85027; 86038; 86039; 86225; 86431

== ENCOUNTER → 2022-01-13 08:53 | Outpatient (REF) | payer MEDICARE, MEDICAID, SELFPAY | LOC: HO.CARD 08:53 | PROVIDERS: Visit Provider Internal Medicine Cardiovascular Disease | DX: Z13.89 Encounter for screening for other disorder (principal) ==

== ENCOUNTER 2022-02-17 13:17 | Outpatient (REF) | payer MEDICARE, MEDICAID, SELFPAY ==
--- NOTE | ~2022-02-17 | CT_ITS ---
EXAMINATION: CT CHEST SCREENING CLINICAL INFORMATION: Current smoker. 38 pack year history. COMPARISON: Previous chest x-ray most recent November 2021 TECHNIQUE: Multidetector volumetric CT imaging of the chest is performed without contrast using low dose technique. Additional 2D coronal and sagittal reformatted images and axial 3D maximum intensity projection (MIP) images are generated on the CT workstation. This CT examination was performed using dose optimization techniques as appropriate, variously including the following: *Automated exposure control *Adjustment of mA and/or kV according to patient size (this includes techniques or standardized protocols for targeted exams where dose is matched to indication/reason for exam; i.e. extremities or head) *Use of iterative reconstruction technique DLP: 44 mGy-cm FINDINGS: LUNGS: There is evidence of emphysema. There is a 2 mm peripheral or subpleural right lower lobe nodule adjacent to the major fissure axial image 324 series 5. This probably represents a subpleural lymph node. There is subsegmental atelectasis in the right lower lobe adjacent to the diaphragmatic pleural surface. The lungs are otherwise clear. No endobronchial or endotracheal lesion. MEDIASTINUM: The mediastinum is normal. CORONARY ARTERY CALCIFICATION: Mild to moderate PLEURA: There is no pleural effusion. No pleural mass or thickening. AXILLA: No lymphadenopathy. UPPER ABDOMEN: Unremarkable OSSEOUS STRUCTURES: Unremarkable. CT/CT lung screening IMPRESSION: Emphysema. Small right lower lobe pulmonary nodule. Mild to moderate coronary artery calcification. ASSESSMENT: Lung-RADS category 2: Benign RECOMMENDATION: Annual low-dose chest CT follow-up recommended.
== END 2022-02-17 13:18 | disposition home or self-care (01) ==
LOC: HO.CT 13:17
PROVIDERS: Absent Provider Internal Medicine Endocrinology, Diabetes & Metabolism; PCP Physician Assistant; Visit Provider Physician Assistant Medical
DX: Z12.2 Encounter for screening for malignant neoplasm of respiratory organs (principal); F17.210 Nicotine dependence, cigarettes, uncomplicated
CPT/HCPCS: 71271; G0296

== ENCOUNTER 2022-03-03 12:34 | Outpatient (REF) | payer MEDICARE, MEDICAID, SELFPAY ==
[2022-03-03 15:27] LABS: TSH reflex Free T4 0.23 uIU/mL (0.32-4.0)
[2022-03-03 15:28] LABS: Vitamin D 25-OH Total 58.2 ng/mL (>30)
== END 2022-03-03 12:35 | disposition home or self-care (01) ==
LOC: HO.LAB 12:34
PROVIDERS: Absent Provider Internal Medicine Endocrinology, Diabetes & Metabolism; PCP Physician Assistant; Referring Provider Physician Assistant; Visit Provider Internal Medicine Cardiovascular Disease
DX: R07.89 Other chest pain (principal); R00.2 Palpitations; E55.9 Vitamin D deficiency, unspecified; E03.8 Other specified hypothyroidism; E06.3 Autoimmune thyroiditis
CPT/HCPCS: 36415; 82306; 84439; 84443; 93005; 99212

== ENCOUNTER → 2022-03-07 10:41 | Outpatient (BNVA) | payer MEDICARE, MEDICAID, SELFPAY | PROVIDERS: PCP Physician Assistant; Visit Provider Internal Medicine Endocrinology, Diabetes & Metabolism | DX: E03.8 Other specified hypothyroidism (principal); E06.3 Autoimmune thyroiditis; E55.9 Vitamin D deficiency, unspecified; R63.4 Abnormal weight loss; R00.2 Palpitations | CPT/HCPCS: 99212 ==

== ENCOUNTER 2022-03-08 07:23 | Outpatient (REF) | payer MEDICARE, MEDICAID, SELFPAY ==
[2022-03-08 08:58] LABS: Cortisol Random 6.1 ug/dL
[2022-03-12 16:08] LABS: Metanephrine, Free 64 pg/mL (<=57); Normetanephrines, Free 213 pg/mL (<=148); Total Metanephrine, Free 277 pg/mL (<=205)
== END 2022-03-08 07:24 | disposition home or self-care (01) ==
LOC: HO.LAB 07:23
PROVIDERS: PCP Physician Assistant; Visit Provider Internal Medicine Endocrinology, Diabetes & Metabolism
DX: R00.2 Palpitations (principal); R63.4 Abnormal weight loss
CPT/HCPCS: 36415; 82533; 83835

== ENCOUNTER → 2022-03-10 08:44 | Outpatient (BNVA) | payer MEDICARE, MEDICAID, SELFPAY | PROVIDERS: PCP Physician Assistant; Visit Provider Internal Medicine Pulmonary Disease | DX: J43.9 Emphysema, unspecified (principal) | CPT/HCPCS: 99202 ==

== ENCOUNTER 2022-03-17 08:27 | Outpatient (REF) | payer MEDICARE, MEDICAID, SELFPAY ==
[2022-03-27 06:21] LABS: Metanephrine, Free 24U 103 mcg/24 h (90-315); Normetanephrine, Free 24U 185 mcg/24 h (122-676); Total Metanephrine, Free 24U 288 mcg/24 h (224-832); Total Volume 24U 1600 mL
[2022-03-28 16:01] LABS: Cortisol Free, 24 Hr Urine 16.1 mcg/24 h (4.0-50.0); Total Volume, 24 Hr Urine 1600 mL
== END 2022-03-17 08:28 | disposition home or self-care (01) ==
LOC: HO.LNP 08:27
PROVIDERS: Visit Provider Internal Medicine Endocrinology, Diabetes & Metabolism
DX: R00.2 Palpitations (principal)
CPT/HCPCS: 82530; 83835

== ENCOUNTER 2022-03-29 07:48 | Outpatient (REF) | payer MEDICARE, MEDICAID, SELFPAY ==
[2022-03-31 14:33] LABS: Adrenocorticotropic Hormone 12 pg/mL (6-50)
[2022-03-31 18:38] LABS: Cortisol 60 Minute 27.5 mcg/dL; Cortisol Baseline 7.3 mcg/dL
== END 2022-03-29 07:49 | disposition home or self-care (01) ==
LOC: HO.MDS 07:48
PROVIDERS: Visit Provider Internal Medicine Endocrinology, Diabetes & Metabolism
DX: E27.8 Other specified disorders of adrenal gland (principal); E03.9 Hypothyroidism, unspecified; E55.9 Vitamin D deficiency, unspecified; Q79.60 Ehlers-Danlos syndrome, unspecified
CPT/HCPCS: 36415; 82024; 82533; 96374; J0834

== ENCOUNTER → 2022-04-06 07:33 | Outpatient (REF) | payer MEDICARE, MEDICAID, SELFPAY ==
--- NOTE | 2022-04-06 07:40 | CA_ITS ---
Acquisition Time: 2022-04-06 08:00:58 Total Exercise Time: 00:07:18 Test Indications: CP Medications: SEE CHART Protocol: SULEMAN Max HR: 179 BPM 106% of Pred: 168 BPM Max BP: 172/090 mmHG Max Work Load: 9.0 METS Exercise stress test with exercise 7 min 18 sec of Suleman protocol, achieving 106% MPHR, 9 METs, with leg fatigue and request to stop, with mild sob, no chest discomfort, with isolated PVCs and ventricular cuplets, one ventricular triplet at peak exercise, with normotensive and brisk chronotropic response ( achieving 100% MPHR at 2 min 33 sec of Suleman 1) to exercise, without EKG changes meeting criteria for ischemia with exercise, with EKG showing T wave inversions inferiorly, V4-V6 in recovery with slow gradual improvement - asymptomatic. Test reviewed with Dr Mcdonough. Referred By: Ab Mcdonough Overread By: MARIANO FUENTES
[2022-04-06 08:41] LABS: Free T4 (Free Thyroxine) 1.06 ng/dL (0.71-1.85); Thyroid Stimulating Hormone 1.61 uIU/mL (0.32-4.0)
== END ==
LOC: HO.CARD 07:33
PROVIDERS: Absent Provider Internal Medicine Endocrinology, Diabetes & Metabolism; PCP Physician Assistant; Visit Provider Internal Medicine Cardiovascular Disease
DX: R07.89 Other chest pain (principal); E06.3 Autoimmune thyroiditis; E03.8 Other specified hypothyroidism
CPT/HCPCS: 36415; 84439; 84443; 93017

== ENCOUNTER 2022-04-10 07:38 | Outpatient (REF) | payer MEDICARE, MEDICAID, SELFPAY ==
--- NOTE | 2022-04-10 09:04 | PFT_ITS ---
INDICATION: Emphysema. SPIROMETRY: FEV1 to FVC 77% with an FEV1 of 3.05 L, which is 107% predicted and an FVC of 3.95 L, which is 109% predicted. No bronchodilators were used. Maximum voluntary ventilation 105% predicted. LUNG VOLUMES: Total lung capacity 107% predicted with residual volume 89% predicted. DIFFUSION CAPACITY: DLCO of 67% predicted. Flow volume loop appears to be within normal lung mechanics. POST-TEST COMMENTS: The patient declined bronchodilators due to having cardiac issues. COMPARISONS: None available. INTERPRETATION: No obstructive nor restrictive ventilatory defects identified. Again, bronchodilators were not used. Normal maximum voluntary ventilation. Lung volumes are within normal limits. However, the patient does have a mild isolated diffusion impairment. Clinical correlation warranted. Eitan Gibson MD MR/MODL / [id number]
== END 2022-04-10 07:39 | disposition home or self-care (01) ==
LOC: HO.RESP 07:38
PROVIDERS: Visit Provider Internal Medicine Pulmonary Disease
DX: J43.9 Emphysema, unspecified (principal)
CPT/HCPCS: 94010; 94727; 94729

== ENCOUNTER 2022-04-14 15:00 | Outpatient (REF) | payer MEDICARE, MEDICAID, SELFPAY ==
--- NOTE | ~2022-04-14 | US_ITS ---
EXAMINATION: US EXTRACRANIAL CAROTID DUPLEX, BILATERAL CLINICAL INFORMATION: Syncope COMPARISON: None TECHNIQUE: Real-time ultrasound and Doppler techniques (integrating B-mode 2-D vascular images, Doppler spectral analysis and color-flow Doppler imaging) were utilized to interrogate the extracranial carotid arteries, the vertebral arteries and proximal subclavian arteries bilaterally. The degree of stenosis is determined by criteria similar to NASCET. FINDINGS: Right Side: 1. There is minimal atherosclerotic plaque seen in the bifurcation/proximal ICA region. 2. The common carotid artery PSV proximally is 96 cm/s and distally 103 cm/s. 3. The proximal internal carotid artery velocities are 92 cm/s systolic and 35 cm/s diastolic. 4. The proximal external carotid artery PSV is 98 cm/s. 5. The vertebral artery shows antegrade flow. 6. The subclavian artery waveforms are normal. Left Side: 1. There is no significant atherosclerotic plaque seen in the bifurcation/proximal ICA region. 2. The common carotid artery PSV proximally is 101 cm/s and distally 90 cm/s. 3. The proximal internal carotid artery velocities are 84 cm/s systolic and 29 cm/s diastolic. 4. The proximal external carotid artery PSV is 67 cm/s. 5. The vertebral artery shows antegrade flow. 6. The subclavian artery waveforms are normal. US/US carotid duplex BI IMPRESSION: 1. RIGHT: Minimal, non-hemodynamically significant stenosis of the proximal right internal carotid artery corresponding to a 0-49% stenosis by velocity criteria. 2. LEFT: Normal left internal carotid artery without atherosclerotic plaque or hemodynamically significant stenosis.
[2022-04-14 15:15] LABS: Hematocrit 42.2 % (37.0-47.0); Mean Corpuscular HGB Conc 33.2 g/dl (31.0-35.0); Mean Corpuscular Hemoglobin 29.6 pg (27.0-33.0); Mean Corpuscular Volume 89.2 fL (80.0-98.0); Mean Platelet Volume 9.3 fL (9.4-12.3); Platelet Count 296 X10*3/uL (160-400); Red Blood Count 4.73 X10*6/uL (4.20-5.50); Red Cell Distribution Width 13.2 % (11.0-16.0); White Blood Count 7.2 X10*3/uL (4.8-10.8)
[2022-04-14 16:00] LABS: Anion Gap 13 (12-20); Blood Urea Nitrogen 8 mg/dL (9-16); Calcium 9.8 mg/dL (8.4-10.2); Carbon Dioxide 27 mmol/L (22-29); Chloride 100 mmol/L (96-108); Cholesterol 254 mg/dL; Estimated Glomerular Filt Rate > 60; Glucose Random 99 mg/dL (60-115); HDL Cholesterol 42 mg/dL; LDL Cholesterol Calculated 179 mg/dl; Potassium 4.1 mmol/L (3.3-5.1); Sodium 136 mmol/L (135-145); Triglycerides 165 mg/dL
== END 2022-04-14 15:01 | disposition home or self-care (01) ==
LOC: HO.US 15:00
PROVIDERS: PCP Physician Assistant; Visit Provider Physician Assistant
DX: R55 Syncope and collapse (principal); I10 Essential (primary) hypertension; R20.2 Paresthesia of skin
CPT/HCPCS: 36415; 80048; 80061; 85027; 93880

== ENCOUNTER 2022-05-09 11:55 | Outpatient (REF) | payer OTHER, SELFPAY ==
[2022-05-09 14:46] LABS: Free T4 (Free Thyroxine) < 0.42 ng/dL (0.71-1.85); Thyroid Stimulating Hormone > 100.00 uIU/mL (0.32-4.0)
== END 2022-05-09 11:56 | disposition home or self-care (01) ==
LOC: HO.LAB 11:55
PROVIDERS: PCP Physician Assistant; Visit Provider Internal Medicine Endocrinology, Diabetes & Metabolism
DX: E03.8 Other specified hypothyroidism (principal); E06.3 Autoimmune thyroiditis
CPT/HCPCS: 36415; 84439; 84443; 87624; 87625; 88142

== ENCOUNTER 2022-05-09 12:23 | Outpatient (REF) | payer MEDICARE, MEDICAID, SELFPAY ==
[2022-05-18 01:29] LABS: HPV 16 RNA NOT DETECTED (NOT DETECTED); HPV mRNA E6/E7 rflx Detected (Not Detected)
== END 2022-05-09 12:24 | disposition home or self-care (01) ==
LOC: HO.LNP 12:23
PROVIDERS: Visit Provider Obstetrics & Gynecology
DX: Z01.419 Encounter for gynecological examination (general) (routine) without abnormal findings (principal); Z11.51 Encounter for screening for human papillomavirus (HPV)
CPT/HCPCS: 87624; 88142

== ENCOUNTER 2022-05-20 03:44 | Emergency (ER) | payer OTHER, SELFPAY ==
[2022-05-20 03:54] VITALS: BP 154/90; PULSE 70; O2SAT 97
--- NOTE | 2022-05-20 03:55 | ECG_ITS ---
Test Reason : CHEST PAIN Blood Pressure : / mmHG Vent. Rate : 059 BPM Atrial Rate : 059 BPM P-R Int : 168 ms QRS Dur : 090 ms QT Int : 404 ms P-R-T Axes : 072 077 086 degrees QTc Int : 399 ms Sinus bradycardia Otherwise normal ECG When compared with ECG of 27-DEC-2021 04:21, No significant change was found Referred By: Generic ED Physician Electronically Signed By:KORY CLEANING MD
[2022-05-20 03:57] VITALS: BP 178/101; PULSE 66; RESP 18; TEMP 36.5; O2SAT 100
--- NOTE | 2022-05-20 04:01 | ED.CHESTPAIN ---
HPI - Chest Pain General Chief Complaint: Chest Pain Stated Complaint: weakness Time Seen by Provider: 05/20/22 04:01 Source: patient Mode of arrival: EMS Limitations: no limitations History of Present Illness HPI narrative: Patient history of hypertension, anxiety brought by EMS for elevated blood pressure reading of 160/130 with heart rate of 65 recheck blood pressure was 159/111 with a pulse rate of 68 patient complaining of her PCPs and tuberculosis specialist as an not answering her phone having multiple complaint denies anxiety but seems to be anxious Related Data Previous Rx's Medication Instructions Recorded cholecalciferol (vitamin D3) 125 125 mcg PO DAILY #30 caps 10/21/21 mcg (5,000 unit) capsule miscellaneous medical supply #1 ea 12/28/21 (Blood Pressure Cuff) lisinopril 10 mg tablet 10 mg PO DAILY 90 days #90 tabs 03/15/22 lorazepam 1 mg tablet 1 mg PO DAILY PRN anxiety 7 days 05/19/22 #7 tabs amlodipine 5 mg tablet (Norvasc) 5 mg PO DAILY #30 tabs 05/20/22 Allergies Allergy/AdvReac Type Severity Reaction Status Date / Time amoxicillin [From AUGMENTIN] Allergy Severe Anaphylaxis Verified 05/09/22 12:13 clavulanic acid Allergy Severe Anaphylaxis Verified 05/09/22 12:13 [From AUGMENTIN] Compazine Allergy Unknown unknown Verified 05/09/22 12:13 ketorolac [From Toradol] Allergy Unknown Anaphylaxis Verified 05/09/22 12:13 prochlorperazine Allergy Unknown INVOLUNTARY Verified 05/09/22 12:13 [From COMPAZINE] SPASMS Review of Systems Review of Systems: Yes all other systems are reviewed and are negative [facility] Past Medical History Medical History COPD (chronic obstructive pulmonary disease) Dysphagia Family history of colon cancer Family history of pancreatic cancer History of cervical cancer HTN (hypertension) Hypothyroidism (~1999) Near syncope Nicotine dependence, cigarettes, uncomplicated Vitamin D deficiency Surgical History History of History of throat surgery (~2011) History of tonsillectomy (~1976) Family History Family History Mother Alzheimer's dementia CVD (cardiovascular disease) Maternal Grandfather Pancreatic cancer Social History Social History Household Members Other:: lives at home with 20-year-old daughter Housing: Apartment Alcohol intake: never Patient Tobacco Use Status: Current everyday Tobacco user Tobacco use type: Cigarette Cigarettes Per Day: 5 Years Smoked: (onset 11, 1ppd x 40yrs, now 1/4ppd, 40pyh) Smoked in Last 30 Days: Yes e-Cigarette/Vaping Use: Never Used Second Hand Smoke Exposure: No Use of substances other than those prescribed or required for medical reasons: No Substance Use Type: Marijuana Advance Directives: No Advance Directives Information Provided: No Patient : No service: No Current occupational status: disabled Cognitive needs: No Hearing needs: No Vision needs: No Physical Exam Vital Signs: Vital Signs: Last Vital Signs Temp 97.7 F 05/20/22 03:57 Pulse 53 05/20/22 05:43 Resp 14 05/20/22 05:43 BP 154/95 H 05/20/22 05:43 Pulse Ox 97 05/20/22 05:43 O2 Del Method 05/20/22 05:43 BMI result Body Mass Index 20.0 Appearance: Alert. Oriented X3. No acute distress. Anxious Eyes: PERRLA, No Nystagmus ENT: Pharynx normal. Oral Mucosa moist Neck: Normal inspection. Neck supple. CVS: Normal heart rate and rhythm. Pulses normal. Respiratory: No respiratory distress. Equal air entry bilateral, no wheezing/rales/rhonchi Abdomen: Soft and nontender. Bowel sounds are present, no mass palpable, no CVA tenderness Skin: Skin warm and dry. Normal skin color. Normal skin turgor. Extremities: No lower extremity edema. No calf tenderness Neuro: Oriented X 3. No motor deficit. No sensory deficit.No cerebellar signs , cranial nerves II-XII intact Medications Administered Discontinued Medications Generic Name Dose Route Start Last Admin Trade Name Freq PRN Reason Stop Dose Admin Amlodipine Besylate 5 mg 05/20/22 04:54 05/20/22 05:09 Amlodipine Besylate 5 Mg Tablet PO 05/20/22 04:55 5 mg ONCE ONE Administration Protocol Medical Decision Making Differential Diagnosis Patient hypothyroidism was on levothyroxine which was taken off by wireless manager in 10/19 TSH done on 05/09/2022 was more than 100 patient restarted on levothyroxine 100 mcg per day. Patient with multiple complaints at this time repeat TSH was 52.86 blood pressure still elevated to 153/1 or 2 will add Norvasc 5 mg to the regimen advised to continue levothyroxine Patient F T4 is 0.67 which is normal blood pressure improved with Norvasc to 147/95 patient advised to follow-up with wireless manager and PCP and stop smoking Lab Data MDM Lab Attestation statement: I reviewed the patient's lab results. 05/20/22 04:10 05/20/22 04:10 Labs: Lab Results 05/20/22 05/20/22 Range/Units 04:10 04:10 WBC 6.3 (4.8-10.8) X10*3/uL RBC 4.93 (4.20-5.50) X10*6/uL Hgb 14.8 (12.0-16.0) g/dl Hct 42.5 (37.0-47.0) % MCV 86.2 (80.0-98.0) fL MCH 30.0 (27.0-33.0) pg MCHC 34.8 (31.0-35.0) g/dl RDW 13.9 (11.0-16.0) % Plt Count 276 (160-400) X10*3/uL MPV 9.0 L (9.4-12.3) fL Immature Gran % (Auto) 0.2 (0.0-0.4) % Neut % (Auto) 58.3 (45-73) % Lymph % (Auto) 33.6 (20-40) % Martin % (Auto) 5.7 (2-11) % Eos % (Auto) 1.6 (0-4) % Baso % (Auto) 0.6 (0-2) % Lymph # (Auto) 2.1 (1.2-4.9) X10*3/uL Martin # (Auto) 0.4 (0.1-1.2) X10*3/uL Eos # (Auto) 0.1 (0.0-0.4) X10*3/uL Baso # (Auto) 0.0 (0.0-0.2) X10*3/uL Abs Immat Gran (auto) 0.01 (0.00-0.03) X10*3/uL Absolute Neuts (auto) 3.7 (2.0-8.3) x10*3/uL Absolute Nucleated RBC 0.000 (0.0-0.012) X10*3/uL Nucleated RBC % (auto) 0.0 (0.0-0.2) /100WBC Sodium 134 L (135-145) mmol/L Potassium 4.4 (3.3-5.1) mmol/L Chloride 99 (96-108) mmol/L Carbon Dioxide 21 L (22-29) mmol/L Anion Gap 18 (12-20) BUN 13 (9-16) mg/dL Creatinine 0.83 (0.5-1.4) mg/dL Estim Creat Clear Calc 68.1 Estimated GFR > 60 Random Glucose 117 H (60-115) mg/dL Calcium 9.8 (8.4-10.2) mg/dL Total Bilirubin 0.4 (0.0-1.0) mg/dL AST 49 H (5-31) U/L ALT 63 H (0-31) U/L Alkaline Phosphatase 56 (39-117) U/L Total Protein 7.6 (6.5-8.0) g/dL Albumin 4.6 (3.5-5.0) g/dL TSH 52.86 H (0.32-4.0) uIU/mL Free T4 0.67 L (0.71-1.85) ng/dL Independent Interpretation I performed an independent interpretation of an: EKG Interpretation: Sinus bradycardia heart rate 59 beats per minute normal interval normal axis no acute ST-T no acute ischemia External Record Review External record reviewed: Outpatient record Discharge Plan Discharge Clinical Impression: Hypertension, Anxiety Patient Disposition: Home, Self-Care Instructions: Chronic Hypertension (ED), Anxiety (ED) Additional Instructions: Continue blood pressure medication anxiety medication Stop smoking Add Norvasc 5 mg daily for better control of your blood pressure Follow-up with your wireless manager/PCP Prescriptions: New amlodipine [Norvasc] 5 mg tablet 5 mg PO DAILY Qty: 30 0RF No Action lisinopril 10 mg tablet 10 mg PO DAILY 90 Days Qty: 90 1RF lorazepam 1 mg tablet 1 mg PO DAILY PRN (Reason: anxiety) 7 Days Qty: 7 0RF (DME) Blood Pressure Cuff Misc See Rx Instructions .ROUTE .MEDSUPPLY Qty: 1 0RF Rx Instructions: As directed cholecalciferol (vitamin D3) 125 mcg (5,000 unit) capsule 125 mcg PO DAILY Qty: 30 5RF
[2022-05-20 04:14] LABS: Basophils Percent Auto 0.6 % (0-2); Eosinophils Absolute Auto 0.1 X10*3/uL (0.0-0.4); Eosinophils Percent Auto 1.6 % (0-4); Hematocrit 42.5 % (37.0-47.0); Hemoglobin 14.8 g/dl (12.0-16.0); Imm Gran Abs Auto 0.01 X10*3/uL (0.00-0.03); Imm Gran Pct Auto 0.2 % (0.0-0.4); Lymphocytes Absolute Auto 2.1 X10*3/uL (1.2-4.9); Lymphocytes Percent Auto 33.6 % (20-40); MANUAL DIFF FLAG NO; Mean Corpuscular HGB Conc 34.8 g/dl (31.0-35.0); Mean Corpuscular Volume 86.2 fL (80.0-98.0); Monocytes Absolute Auto 0.4 X10*3/uL (0.1-1.2); Monocytes Percent Auto 5.7 % (2-11); Neutrophils Absolute Auto 3.7 x10*3/uL (2.0-8.3); Neutrophils Percent Auto 58.3 % (45-73); Platelet Count 276 X10*3/uL (160-400); Red Blood Count 4.93 X10*6/uL (4.20-5.50); Red Cell Distribution Width 13.9 % (11.0-16.0); White Blood Count 6.3 X10*3/uL (4.8-10.8)
--- NOTE | 2022-05-20 04:18 | PC.NURSE ---
Pt aox4. Breaths are even and unlabored. NSR on monitory with HR 74. Abd soft and non tender. Skin warm pink and dry. Labs drawn. IV line established, 20G Gaviota ALMANZA MD at bedside.
[2022-05-20 04:43] LABS: Alanine Aminotransferase 63 U/L (0-31); Albumin Level 4.6 g/dL (3.5-5.0); Alkaline Phosphatase 56 U/L (39-117); Anion Gap 18 (12-20); Aspartate Amino Transferase 49 U/L (5-31); Bilirubin Total 0.4 mg/dL (0.0-1.0); Blood Urea Nitrogen 13 mg/dL (9-16); Calcium 9.8 mg/dL (8.4-10.2); Carbon Dioxide 21 mmol/L (22-29); Chloride 99 mmol/L (96-108); Creatinine Clr Calc Pharmacy 68.1; Estimated Glomerular Filt Rate > 60; Glucose Random 117 mg/dL (60-115); Potassium 4.4 mmol/L (3.3-5.1); Sodium 134 mmol/L (135-145); Total Protein 7.6 g/dL (6.5-8.0)
[2022-05-20 04:50] VITALS: BP 153/102; PULSE 73; RESP 12; O2SAT 98
[2022-05-20 04:51] LABS: Thyroid Stimulating Hormone 52.86 uIU/mL (0.32-4.0)
[2022-05-20] MEDS: amLODIPine Besylate 5 MG TABLET PO (05:09)
--- NOTE | 2022-05-20 05:12 | PC.NURSE ---
Pt aox4 resting at the bedside in no apparent distress. Medicated as ordered with no complications. Pending lab results. Pt aware of plan of care. Will continue to monitor.
[2022-05-20 05:43] VITALS: BP 154/95; PULSE 53; RESP 14; O2SAT 97
[2022-05-20 05:45] LABS: Free T4 (Free Thyroxine) 0.67 ng/dL (0.71-1.85)
--- NOTE | 2022-05-20 06:23 | PC.NURSE ---
IV line removed. Pt tolerated well. Discharged instructions reviewed with pt. Pt verbalizes understanding.
== END 2022-05-20 06:24 | disposition home or self-care (01) ==
PROVIDERS: Emergency Provider Internal Medicine
DX: I10 Essential (primary) hypertension (principal); F41.9 Anxiety disorder, unspecified; E78.00 Pure hypercholesterolemia, unspecified; F17.210 Nicotine dependence, cigarettes, uncomplicated; F12.90 Cannabis use, unspecified, uncomplicated; Z79.899 Other long term (current) drug therapy; Z71.6 Tobacco abuse counseling; Z86.711 Personal history of pulmonary embolism
CPT/HCPCS: 36415; 80053; 84439; 84443; 85025; 93005; 99283; 99285

== ENCOUNTER 2022-05-25 13:44 | Outpatient (REF) | payer OTHER, SELFPAY ==
[2022-05-25 14:08] LABS: MANUAL DIFF FLAG NO
[2022-05-25 15:04] LABS: Basophils Absolute Auto 0.1 X10*3/uL (0.0-0.2); Basophils Percent Auto 0.8 % (0-2); Eosinophils Absolute Auto 0.1 X10*3/uL (0.0-0.4); Eosinophils Percent Auto 1.3 % (0-4); Hematocrit 39.2 % (37.0-47.0); Hemoglobin 13.4 g/dl (12.0-16.0); Imm Gran Abs Auto 0.01 X10*3/uL (0.00-0.03); Imm Gran Pct Auto 0.1 % (0.0-0.4); Lymphocytes Absolute Auto 3.4 X10*3/uL (1.2-4.9); Lymphocytes Percent Auto 44.5 % (20-40); Mean Corpuscular HGB Conc 34.2 g/dl (31.0-35.0); Mean Corpuscular Hemoglobin 30.2 pg (27.0-33.0); Mean Corpuscular Volume 88.3 fL (80.0-98.0); Mean Platelet Volume 9.6 fL (9.4-12.3); Monocytes Absolute Auto 0.4 X10*3/uL (0.1-1.2); Monocytes Percent Auto 5.1 % (2-11); Neutrophils Absolute Auto 3.7 x10*3/uL (2.0-8.3); Neutrophils Percent Auto 48.2 % (45-73); Platelet Count 298 X10*3/uL (160-400); Red Blood Count 4.44 X10*6/uL (4.20-5.50); White Blood Count 7.7 X10*3/uL (4.8-10.8)
[2022-05-25 15:34] LABS: Alanine Aminotransferase 46 U/L (0-31); Albumin Level 4.4 g/dL (3.5-5.0); Alkaline Phosphatase 56 U/L (39-117); Anion Gap 13 (12-20); Aspartate Amino Transferase 28 U/L (5-31); Bilirubin Total 0.6 mg/dL (0.0-1.0); Blood Urea Nitrogen 10 mg/dL (9-16); Calcium 9.5 mg/dL (8.4-10.2); Carbon Dioxide 25 mmol/L (22-29); Chloride 103 mmol/L (96-108); Estimated Glomerular Filt Rate > 60; Glucose Random 87 mg/dL (60-115); Lactate Dehydrogenase 181 U/L (122-220); Potassium 4.2 mmol/L (3.3-5.1); Sodium 137 mmol/L (135-145); Total Protein 7.1 g/dL (6.5-8.0)
== END 2022-05-25 13:45 | disposition home or self-care (01) ==
LOC: HO.LAB 13:44
PROVIDERS: PCP Physician Assistant; Visit Provider Nurse Practitioner Family
DX: Z13.0 Encounter for screening for diseases of the blood and blood-forming organs and certain disorders involving the immune mechanism (principal); R50.9 Fever, unspecified; R63.4 Abnormal weight loss; R61 Generalized hyperhidrosis
CPT/HCPCS: 36415; 80053; 83615; 85025; 87040

== ENCOUNTER → 2022-06-13 11:36 | Outpatient (BNVA) | payer OTHER, SELFPAY | PROVIDERS: PCP Physician Assistant; Visit Provider Internal Medicine Pulmonary Disease | DX: J43.9 Emphysema, unspecified (principal) | CPT/HCPCS: Q3014 ==

== ENCOUNTER 2022-07-03 07:26 | Outpatient (REF) | payer OTHER, SELFPAY ==
[2022-07-03 08:30] LABS: Alanine Aminotransferase 25 U/L (0-31); Albumin Level 4.4 g/dL (3.5-5.0); Alkaline Phosphatase 52 U/L (39-117); Aspartate Amino Transferase 17 U/L (5-31); Bilirubin Direct 0.2 mg/dL (0.0-0.5); Bilirubin Total 0.8 mg/dL (0.0-1.0)
[2022-07-03 08:44] LABS: Free T4 (Free Thyroxine) 1.09 ng/dL (0.71-1.85); Thyroid Stimulating Hormone 9.71 uIU/mL (0.32-4.0)
== END 2022-07-03 07:27 | disposition home or self-care (01) ==
LOC: HO.LAB 07:26
PROVIDERS: Absent Provider Internal Medicine Endocrinology, Diabetes & Metabolism; PCP Physician Assistant; Visit Provider Nurse Practitioner Family
DX: E03.8 Other specified hypothyroidism (principal); E06.3 Autoimmune thyroiditis; R79.89 Other specified abnormal findings of blood chemistry; A63.0 Anogenital (venereal) warts
CPT/HCPCS: 36415; 57454; 80076; 84439; 84443

== ENCOUNTER 2022-07-03 08:21 | Outpatient (REF) | payer OTHER, SELFPAY | END 2022-07-03 08:22 | disposition home or self-care (01) | LOC: HO.LNP 08:21 | PROVIDERS: Visit Provider Obstetrics & Gynecology | DX: A63.0 Anogenital (venereal) warts (principal); B97.7 Papillomavirus as the cause of diseases classified elsewhere | CPT/HCPCS: 88305; 88342; 88360 ==

== ENCOUNTER → 2022-07-13 08:39 | Outpatient (BNVA) | payer OTHER, SELFPAY | PROVIDERS: PCP Physician Assistant; Visit Provider Obstetrics & Gynecology | DX: D06.9 Carcinoma in situ of cervix, unspecified (principal) | CPT/HCPCS: 99212 ==

== ENCOUNTER 2022-08-08 09:28 | Emergency (ER) | payer OTHER, SELFPAY ==
--- NOTE | ~2022-08-08 | XR_ITS ---
EXAMINATION: XR CHEST CLINICAL INFORMATION: Chest pain COMPARISON: None available. TECHNIQUE: 2 views of the chest were obtained. FINDINGS: The lungs are hyperinflated but clear of acute process. Heart size and pulmonary vascularity is normal. No gross bony abnormality seen. XR/XR chest 2V IMPRESSION: Unremarkable chest examination.
--- NOTE | ~2022-08-08 | CT_ITS ---
EXAMINATION: CT ABDOMEN AND PELVIS WITH CONTRAST CLINICAL INFORMATION: Left upper quadrant pain COMPARISON: Previous CT of the abdomen and pelvis October 2021 TECHNIQUE: Multidetector volumetric images were obtained from the superior aspect of the liver through the pubic symphysis following administration 85 mL of Omnipaque 350 intravenous contrast. Sagittal and coronal reformatted images were obtained on the technologist's workstation. Oral contrast: Yes This CT examination was performed using dose optimization techniques as appropriate, variously including the following: *Automated exposure control *Adjustment of mA and/or kV according to patient size (this includes techniques or standardized protocols for targeted exams where dose is matched to indication/reason for exam; i.e. extremities or head) *Use of iterative reconstruction technique DLP: 333 mGy-cm FINDINGS: LUNG BASES: There is a scarring or subsegmental atelectasis at the right lung base. LIVER, GALLBLADDER, AND BILIARY TREE: There is a small subcentimeter low-attenuation lesion in the posterior segment of the right lobe of the liver axial image 20 series 3. This is not seen on previous CT done without IV contrast October 2021. This is difficult to characterize small size. The liver is otherwise normal. The gallbladder is normal. There is no biliary duct dilatation. PANCREAS: Unremarkable. SPLEEN: Unremarkable. ADRENAL GLANDS: Unremarkable. KIDNEYS AND URETERS: There is a 2 mm stone in the mid left kidney. There are small right renal cysts. No imaging follow-up. These are otherwise normal. BLADDER: Unremarkable. GASTROINTESTINAL TRACT: There is diverticulosis of the distal colon. There is mild wall thickening of the colon from the mid transverse colon to the sigmoid colon. Long segment distribution favors colitis over diverticulitis. No evidence of obstruction, perforation or abscess. Small bowel is normal. The appendix is normal. ABDOMINAL WALL: No significant hernia is appreciated. LYMPH NODES: Normal. VASCULAR: Atherosclerotic disease. No aneurysm. PELVIC VISCERA: Unremarkable. OSSEOUS STRUCTURES: Degenerative changes of the spine. CT/CT abdomen pelvis w IV con IMPRESSION: Wall thickening of the colon suggestive of mild colitis. Diverticulosis of the distal colon. Small nonobstructing left renal stone. Fleischner guidelines were followed.
--- NOTE | 2022-08-08 09:39 | ECG_ITS ---
Test Reason : cp Blood Pressure : / mmHG Vent. Rate : 067 BPM Atrial Rate : 067 BPM P-R Int : 166 ms QRS Dur : 084 ms QT Int : 368 ms P-R-T Axes : 055 076 066 degrees QTc Int : 388 ms Normal sinus rhythm Normal ECG When compared with ECG of 20-MAY-2022 03:57, No significant change was found Referred By: Generic ED Physician Electronically Signed By:KORY CLEANING MD
[2022-08-08 09:40] VITALS: BP 145/87; BP 164/95; PULSE 110; PULSE 75; RESP 14; TEMP 37; O2SAT 98; O2SAT 99; BMI 21.4
--- NOTE | 2022-08-08 09:44 | ED.GENADULT ---
HPI - General Adult General Chief complaint: Chest Pain Stated complaint: L SIDE PAIN ON/OFF X1 YEAR PER EMS Time Seen by Provider: 08/08/22 09:44 Source: patient and EMS Mode of arrival: EMS Limitations: no limitations History of Present Illness HPI narrative: Patient is a 52 year old assigned female at with a history of palpations, COPD, nicolasa-danlos syndrome, HTN, and palpitations presenting to the emergency department today after a rolling feeling in her chest and left upper quadrant abdominal pain. Patient states that she has been having these rolling sensations and PVC episodes for awhile and has been following up with her heat treat technician but they have not found a cause yet. Patient states that she chronically has a left upper quadrant abdominal pain that sometimes causes an increase in pressure within her stomach and that causes pain in her chest. Patient denies any dizziness, lightheadedness, nausea, vomiting, fever, chills, blurry vision, double vision, loss of vision, difficulty breathing, shortness of breath, back pain, night sweats, pain with urination, increased urinary frequency, increased urinary urgency, blood in her urine or stool, syncope or a near syncopal episode, recent trauma or falls, bowel incontinence, bladder incontinence, bowel retention, bladder retention, or any other complaints at this time. Relieving factors: none Exacerbating factors: none Treatments prior to arrival: none Related Data Previous Rx's Medication Instructions Recorded miscellaneous medical supply #1 ea 12/28/21 (Blood Pressure Cuff) amlodipine 5 mg tablet (Norvasc) 5 mg PO DAILY #30 tabs 05/20/22 lisinopril 10 mg tablet 10 mg PO DAILY 90 days #90 tabs 05/22/22 nystatin 100,000 unit/mL oral 4 ml PO QID #112 mL 05/22/22 suspension cholecalciferol (vitamin D3) 125 125 mcg PO DAILY #30 caps 06/20/22 mcg (5,000 unit) capsule levothyroxine 112 mcg tablet 112 mcg PO DAILY #30 tabs 07/05/22 lorazepam 1 mg tablet 1 mg PO DAILY PRN anxiety 7 days 07/25/22 #7 tabs Allergies Allergy/AdvReac Type Severity Reaction Status Date / Time amoxicillin [From AUGMENTIN] Allergy Severe Anaphylaxis Verified 07/03/22 07:53 clavulanic acid Allergy Severe Anaphylaxis Verified 07/03/22 07:53 [From AUGMENTIN] ketorolac [From Toradol] Allergy Unknown Anaphylaxis Verified 07/03/22 07:53 prochlorperazine Allergy Unknown INVOLUNTARY Verified 07/03/22 07:53 [From COMPAZINE] SPASMS Review of Systems Constitutional: Constitutional: Reports no additional constitutional complaints, Denies chills, Denies fever(s) and Denies night sweats Eyes: Eyes: Reports no additional eye complaints, Denies blurry vision, Denies change in vision, Denies diplopia, Denies eye discharge, Denies loss of vision and Denies eye pain ENT: Denies dizziness Cardiovascular: Cardiovascular: Reports no additional cardiovascular complaints, Reports chest pain, Denies lightheadedness, Denies Loss of Consciousness and Denies dyspnea Respiratory: Respiratory: Reports no additional respiratory complaints and Denies dyspnea Gastrointestinal: Gastrointestinal: Reports no additional gastrointestinal complaints, Reports abdominal pain, Denies melena, Denies hematochezia, Denies change in bowel habits and Denies change in stool character Genitourinary: Genitourinary: Denies hematuria, Denies urinary frequency, Denies dysuria, Denies urinary incontinence, Denies urinary hesitancy and Denies urinary urgency Musculoskeletal: Musculoskeletal: Reports no additional musculoskeletal complaints, Denies numbness and Denies tingling Neurologic: Denies dizziness, Denies loss of vision, Denies numbness and Denies tingling Psychiatric: Psychiatric: Reports no additional psychiatric complaints Endocrine: Endocrine: Reports no additional endocrine complaints Hematologic/Lymphatic: Hematologic/Lymphatic: Reports no additional hematologic/lymphatic complaints Allergic/Immunologic: Allergic/Immunologic: Reports no additional allergic/immunologic complaints [facility] Past Medical History Attestation statement: The following information was validated with the patient. Source: old records reviewed and nursing notes reviewed Medical History COPD (chronic obstructive pulmonary disease) Dysphagia Family history of colon cancer Family history of pancreatic cancer Fever of unknown origin History of cervical cancer HTN (hypertension) Hypothyroidism (~1999) Near syncope Nicotine dependence, cigarettes, uncomplicated Unintentional weight loss Vitamin D deficiency Surgical History History of History of throat surgery (~2011) History of tonsillectomy (~1976) Family History Family History Mother Alzheimer's dementia CVD (cardiovascular disease) Maternal Grandfather Pancreatic cancer Social History Social History Household Members Other:: lives at home with 20-year-old daughter Housing: Apartment Alcohol intake: never Patient Tobacco Use Status: Current everyday Tobacco user Tobacco use type: Cigarette Cigarettes Per Day: 5 Years Smoked: (onset 11, 1ppd x 40yrs, now 1/4ppd, 40pyh) Smoked in Last 30 Days: Yes e-Cigarette/Vaping Use: Never Used Second Hand Smoke Exposure: No Use of substances other than those prescribed or required for medical reasons: Yes Substance Use Type: Marijuana Advance Directives: No Advance Directives Information Provided: No Patient : No service: No Current occupational status: disabled Cognitive needs: No Hearing needs: No Vision needs: No Physical Exam ED Vital Signs: Vital Signs - 24 hr 08/08/22 09:40 08/08/22 10:12 08/08/22 10:18 Temperature 98.6 F Pulse Rate 75 72 79 Respiratory Rate 14 16 14 Blood Pressure 145/87 H 155/111 H 129/89 Pulse Oximetry 99 99 99 Oxygen Delivery Method Room Air Room Air Room Air BMI result Body Mass Index 21.4 Const General: cooperative, no acute distress, alert and awake Nutritional Appearance: well nourished Orientation/consciousness: patient oriented x3 Limitations: no limitations [facility] Head: Yes normal to inspection and Yes atraumatic Ears: hearing grossly normal bilaterally and external ears normal General nose exam: Normal external nose present, no nasal discharge noted and no epistaxis Face and sinus: Yes normal facial exam, No abrasion and No laceration Mouth: Normal oral and palatal mucosa present, no drooling and no muffled voice Eyes General: appearance normal, both eyes and all related structures Periorbital: periorbital findings normal Eyelids: Yes eyelids normal Conjunctivae: conjunctivae normal Pupils: Equal, round and reactive pupils present EOM: EOMs intact bilaterally Neck Neck: Yes normal visual inspection, Yes full ROM and Yes no lymphadenopathy Chest Chest palpation & inspection: normal inspection of the chest Resp Effort & Inspection: normal respiratory effort and able to speak in complete sentences Auscultation: clear to auscultation bilaterally Cardio Rate: regular rate Rhythm: regular rhythm GI Inspection: Yes normal to inspection Palpation (GI): Soft to palpation, not firm, nontender, no guarding and not rigid Neuro General: patient oriented x3 and moves all extremities Cranial nerves: Yes Equal, round and reactive pupils present Cognition (Neuro): normal cognition Motor exam (neuro): 5/5 motor strength present throughout Sensory Exam: Normal double simultaneous stimulation for sensation Coordination: [id number] test normal Extrem General: Yes normal to inspection, Yes full ROM and Yes capillary refill normal Psych Appearance: grossly normal Mental Status: mental status grossly normal Affect: normal affect Attitude: cooperative Thought process: Normal thought process present Thought content: Normal thought content present Insight: Good insight present (Psych) Medications Administered Discontinued Medications Generic Name Dose Route Start Last Admin Trade Name Kiersten PRN Reason Stop Dose Admin Iohexol 85 ml 08/08/22 11:52 08/08/22 11:52 Iohexol 350 Mg/Ml 100 Ml Infus..Btl IV 08/08/22 11:53 85 ml ONCE ONE Administration Medical Decision Making Medical Decision Making [facility] Narrative: Patient is a 52 year old assigned female at after a chest rolling episode and with chronic left upper quadrant abdominal pain. Patient's physical exam was unremarkable. Patient's blood work was unremarkable. Patient's EKG was unremarkable. Patient's chest x-ray showed no acute process. Patient's abdominal CT showed a colitis but was otherwise unremarkable. I explained my physical exam findings as well as all test results to the patient. I answered all questions asked by the patient. I stressed the importance of the patient taking her medication as prescribed. I stressed the importance of the patient following up with her primary care provider, heat treat technician, and her GI specialist. I stressed the importance of the patient returning to the emergency department immediately if her symptoms were to worsen or if she were to develop any dizziness, shortness of breath, difficulty breathing, chest pain, blurry vision, loss of vision, nausea, vomiting, abdominal pain, fever, chills, back pain, or any other complaints. Patient verbalized agreement and understanding with this treatment plan and discharge. Differential Diagnosis Differential Diagnoses: The differential diagnosis associated with the presentation includes colitis, chest pain Lab Data [facility] Lab Attestation statement: I reviewed the patient's lab results. 08/08/22 10:17 08/08/22 10:17 Labs: Lab Results 08/08/22 08/08/22 08/08/22 Range/Units 10:17 10:17 10:17 WBC 6.9 (4.8-10.8) X10*3/uL RBC 4.48 (4.20-5.50) X10*6/uL Hgb 13.7 (12.0-16.0) g/dl Hct 40.0 (37.0-47.0) % MCV 89.3 (80.0-98.0) fL MCH 30.6 (27.0-33.0) pg MCHC 34.3 (31.0-35.0) g/dl RDW 12.1 (11.0-16.0) % Plt Count 277 (160-400) X10*3/uL MPV 9.5 (9.4-12.3) fL Immature Gran % (Auto) 0.1 (0.0-0.4) % Neut % (Auto) 65.2 (45-73) % Lymph % (Auto) 27.3 (20-40) % Thurston % (Auto) 5.6 (2-11) % Eos % (Auto) 1.2 (0-4) % Baso % (Auto) 0.6 (0-2) % Lymph # (Auto) 1.9 (1.2-4.9) X10*3/uL Thurston # (Auto) 0.4 (0.1-1.2) X10*3/uL Eos # (Auto) 0.1 (0.0-0.4) X10*3/uL Baso # (Auto) 0.0 (0.0-0.2) X10*3/uL Abs Immat Gran (auto) 0.01 (0.00-0.03) X10*3/uL Absolute Neuts (auto) 4.5 (2.0-8.3) x10*3/uL Absolute Nucleated RBC 0.000 (0.0-0.012) X10*3/uL Nucleated RBC % (auto) 0.0 (0.0-0.2) /100WBC Sodium 140 (135-145) mmol/L Potassium 4.5 (3.3-5.1) mmol/L Chloride 103 (96-108) mmol/L Carbon Dioxide 27 (22-29) mmol/L Anion Gap 15 (12-20) BUN 9 (9-16) mg/dL Creatinine 0.82 (0.5-1.4) mg/dL Estim Creat Clear Calc 71.3 Estimated GFR > 60 Random Glucose 110 (60-115) mg/dL Calcium 9.6 (8.4-10.2) mg/dL Total Bilirubin 0.3 (0.0-1.0) mg/dL AST 16 (5-31) U/L ALT 18 (0-31) U/L Alkaline Phosphatase 48 (39-117) U/L Troponin I High Sens < 2.7 (<3.5-17.0) ng/L B-Natriuretic Peptide (<100) pg/mL Total Protein 6.7 (6.5-8.0) g/dL Albumin 4.2 (3.5-5.0) g/dL Lipase 26 (8-78) U/L 08/08/22 Range/Units 10:17 WBC (4.8-10.8) X10*3/uL RBC (4.20-5.50) X10*6/uL Hgb (12.0-16.0) g/dl Hct (37.0-47.0) % MCV (80.0-98.0) fL MCH (27.0-33.0) pg MCHC (31.0-35.0) g/dl RDW (11.0-16.0) % Plt Count (160-400) X10*3/uL MPV (9.4-12.3) fL Immature Gran % (Auto) (0.0-0.4) % Neut % (Auto) (45-73) % Lymph % (Auto) (20-40) % Thurston % (Auto) (2-11) % Eos % (Auto) (0-4) % Baso % (Auto) (0-2) % Lymph # (Auto) (1.2-4.9) X10*3/uL Thurston # (Auto) (0.1-1.2) X10*3/uL Eos # (Auto) (0.0-0.4) X10*3/uL Baso # (Auto) (0.0-0.2) X10*3/uL Abs Immat Gran (auto) (0.00-0.03) X10*3/uL Absolute Neuts (auto) (2.0-8.3) x10*3/uL Absolute Nucleated RBC (0.0-0.012) X10*3/uL Nucleated RBC % (auto) (0.0-0.2) /100WBC Sodium (135-145) mmol/L Potassium (3.3-5.1) mmol/L Chloride (96-108) mmol/L Carbon Dioxide (22-29) mmol/L Anion Gap (12-20) BUN (9-16) mg/dL Creatinine (0.5-1.4) mg/dL Estim Creat Clear Calc Estimated GFR Random Glucose (60-115) mg/dL Calcium (8.4-10.2) mg/dL Total Bilirubin (0.0-1.0) mg/dL AST (5-31) U/L ALT (0-31) U/L Alkaline Phosphatase (39-117) U/L Troponin I High Sens (<3.5-17.0) ng/L B-Natriuretic Peptide 21 (<100) pg/mL Total Protein (6.5-8.0) g/dL Albumin (3.5-5.0) g/dL Lipase (8-78) U/L Independent Interpretation I performed an independent interpretation of an: EKG Interpretation: Vent. Rate: 067 BPM ? ? Atrial Rate: 067 BPM P-R Int: 166 ms? QRS Dur: 084 ms QT Int: 368 ms ? ? ? P-R-T Axes: 055 076 066 degrees QTc Int: 388 ms ? Normal sinus rhythm Normal ECG When compared with ECG of 20-MAY-2022 03:57, No significant change was found DD/ 1000 Radiology Impression Radiologist Impression: My interpretation is in agreement with the radiologist's impression of these imaging studies. EXAMINATION: CT ABDOMEN AND PELVIS WITH CONTRAST? CLINICAL INFORMATION: Left upper quadrant pain? COMPARISON: Previous CT of the abdomen and pelvis October 2021 TECHNIQUE: Multidetector volumetric images were obtained from the superior aspect of the liver through the pubic symphysis following administration 85 mL of Omnipaque 350 intravenous contrast. Sagittal and coronal reformatted images were obtained on the technologist's workstation.? Oral contrast: Yes This CT examination was performed using dose optimization techniques as appropriate, variously including the following: *Automated exposure control *Adjustment of mA and/or kV according to patient size (this includes techniques or standardized protocols for targeted exams where dose is matched to indication/reason for exam; i.e. extremities or head) *Use of iterative reconstruction technique DLP: 333 mGy-cm FINDINGS: LUNG BASES: There is a scarring or subsegmental atelectasis at the right lung base. LIVER, GALLBLADDER, AND BILIARY TREE: There is a small subcentimeter low-attenuation lesion in the posterior segment of the right lobe of the liver axial image 20 series 3. This is not seen on previous CT done without IV contrast October 2021. This is difficult to characterize small size. The liver is otherwise normal. The gallbladder is normal. There is no biliary duct dilatation. PANCREAS: Unremarkable.? SPLEEN: Unremarkable.? ADRENAL GLANDS: Unremarkable.? KIDNEYS AND URETERS: There is a 2 mm stone in the mid left kidney. There are small right renal cysts. No imaging follow-up. These are otherwise normal.? BLADDER: Unremarkable.? GASTROINTESTINAL TRACT: There is diverticulosis of the distal colon. There is mild wall thickening of the colon from the mid transverse colon to the sigmoid colon. Long segment distribution favors colitis over diverticulitis. No evidence of obstruction, perforation or abscess. Small bowel is normal. The appendix is normal. ABDOMINAL WALL: No significant hernia is appreciated.? LYMPH NODES: Normal. VASCULAR: Atherosclerotic disease. No aneurysm. PELVIC VISCERA: Unremarkable.? OSSEOUS STRUCTURES: Degenerative changes of the spine.? CT/CT abdomen pelvis w IV con IMPRESSION: Wall thickening of the colon suggestive of mild colitis. Diverticulosis of the distal colon. ? Small nonobstructing left renal stone.? ? Fleischner guidelines were followed. Dictated By: Amy Merino MD Signed By: Electronically signed by Amy Merino MD 08/08/22 1231 EXAMINATION: XR CHEST CLINICAL INFORMATION: Chest pain COMPARISON: None available. TECHNIQUE: 2 views of the chest were obtained. FINDINGS: The lungs are hyperinflated but clear of acute process. Heart size and pulmonary vascularity is normal. No gross bony abnormality seen. XR/XR chest 2V IMPRESSION: Unremarkable chest examination. Dictated By: Silvio Douglas MD Signed By: Electronically signed by Silvio Dougals MD 08/08/22 1034 Discharge Plan Discharge Clinical Impression: Colitis, Palpitations Patient Disposition: Home, Self-Care Instructions: Heart Palpitations (DC), Colitis (ED) Additional Instructions: Follow up with your primary care provider, heat treat technician, and your GI specialist. Return to the emergency department immediately if your symptoms worsen or if you develop any dizziness, shortness of breath, difficulty breathing, chest pain, blurry vision, loss of vision, nausea, vomiting, abdominal pain, fever, chills, back pain, or any other complaints. Prescriptions: No Action lisinopril 10 mg tablet 10 mg PO DAILY 90 Days Qty: 90 1RF nystatin 100,000 unit/mL suspension 4 ml PO QID Qty: 112 0RF Rx Instructions: swish and swallow cholecalciferol (vitamin D3) 125 mcg (5,000 unit) capsule 125 mcg PO DAILY Qty: 30 5RF levothyroxine 112 mcg tablet 112 mcg PO DAILY Qty: 30 4RF lorazepam 1 mg tablet 1 mg PO DAILY PRN (Reason: anxiety) 7 Days Qty: 7 0RF amlodipine [Norvasc] 5 mg tablet 5 mg PO DAILY Qty: 30 0RF (DME) Blood Pressure Cuff Misc See Rx Instructions .ROUTE .MEDSUPPLY Qty: 1 0RF Rx Instructions: As directed Referrals: [facility] [Provider Group] [facility] [Provider Group] Leonardo Perez PA-C [Primary Care Provider] - Interventions: ED Discharge Assessment Last Done: 08/08/22 13:04 Discharge Date/Time: 08/08/22 13:06 Print Language: Slovenian
[2022-08-08 10:12] VITALS: BP 155/111; PULSE 72; RESP 16; O2SAT 99
[2022-08-08 10:18] VITALS: BP 129/89; PULSE 79; RESP 14; O2SAT 99
[2022-08-08 10:30] LABS: Basophils Percent Auto 0.6 % (0-2); Eosinophils Absolute Auto 0.1 X10*3/uL (0.0-0.4); Eosinophils Percent Auto 1.2 % (0-4); Hemoglobin 13.7 g/dl (12.0-16.0); Imm Gran Abs Auto 0.01 X10*3/uL (0.00-0.03); Imm Gran Pct Auto 0.1 % (0.0-0.4); Lymphocytes Absolute Auto 1.9 X10*3/uL (1.2-4.9); Lymphocytes Percent Auto 27.3 % (20-40); MANUAL DIFF FLAG NO; Mean Corpuscular HGB Conc 34.3 g/dl (31.0-35.0); Mean Corpuscular Hemoglobin 30.6 pg (27.0-33.0); Mean Corpuscular Volume 89.3 fL (80.0-98.0); Mean Platelet Volume 9.5 fL (9.4-12.3); Monocytes Absolute Auto 0.4 X10*3/uL (0.1-1.2); Monocytes Percent Auto 5.6 % (2-11); Neutrophils Absolute Auto 4.5 x10*3/uL (2.0-8.3); Neutrophils Percent Auto 65.2 % (45-73); Platelet Count 277 X10*3/uL (160-400); Red Blood Count 4.48 X10*6/uL (4.20-5.50); Red Cell Distribution Width 12.1 % (11.0-16.0); White Blood Count 6.9 X10*3/uL (4.8-10.8)
[2022-08-08 10:45] LABS: Alanine Aminotransferase 18 U/L (0-31); Albumin Level 4.2 g/dL (3.5-5.0); Alkaline Phosphatase 48 U/L (39-117); Anion Gap 15 (12-20); Aspartate Amino Transferase 16 U/L (5-31); Bilirubin Total 0.3 mg/dL (0.0-1.0); Blood Urea Nitrogen 9 mg/dL (9-16); Calcium 9.6 mg/dL (8.4-10.2); Carbon Dioxide 27 mmol/L (22-29); Chloride 103 mmol/L (96-108); Creatinine Clr Calc Pharmacy 71.3; Estimated Glomerular Filt Rate > 60; Glucose Random 110 mg/dL (60-115); Lipase 26 U/L (8-78); Potassium 4.5 mmol/L (3.3-5.1); Sodium 140 mmol/L (135-145); Total Protein 6.7 g/dL (6.5-8.0)
[2022-08-08 10:51] LABS: B Type Natriuretic Peptide 21 pg/mL (<100)
[2022-08-08 10:53] LABS: Troponin-I High Sensitivity < 2.7 ng/L (<3.5-17.0)
--- NOTE | 2022-08-08 11:30 | PC.NURSE ---
Patient presents today with chest pain different from her usual. Patient states that she feels like her heart was rolling in her chest. Patient well appearing at time of triage denies pain at this time. Patient sinus rhythm on monitor.
[2022-08-08] MEDS: iohexoL 350 MG/ML 100 ML INFUS..BTL 85 ML IV (11:52)
== END 2022-08-08 13:06 | disposition home or self-care (01) ==
PROVIDERS: Physician Assistant Medical; Emergency Provider Emergency Medicine; PCP Physician Assistant
DX: K52.9 Noninfective gastroenteritis and colitis, unspecified (principal); R00.2 Palpitations; I10 Essential (primary) hypertension; R10.12 Left upper quadrant pain; F17.210 Nicotine dependence, cigarettes, uncomplicated; Z79.899 Other long term (current) drug therapy; Z71.6 Tobacco abuse counseling
CPT/HCPCS: 36415; 71046; 74177; 80053; 83690; 83880; 84484; 85025; 93005; 99284; 99285; Q9967

== ENCOUNTER 2022-08-22 12:40 | Outpatient (REF) | payer OTHER, SELFPAY ==
[2022-08-22 14:22] LABS: Free T4 (Free Thyroxine) 1.28 ng/dL (0.71-1.85); Thyroid Stimulating Hormone 0.84 uIU/mL (0.32-4.0)
== END 2022-08-22 12:41 | disposition home or self-care (01) ==
LOC: HO.LAB 12:40
PROVIDERS: PCP Physician Assistant; Visit Provider Internal Medicine Endocrinology, Diabetes & Metabolism
DX: E03.8 Other specified hypothyroidism (principal); E06.3 Autoimmune thyroiditis
CPT/HCPCS: 36415; 84439; 84443

== ENCOUNTER → 2022-08-28 07:51 | Outpatient (BNVA) | payer OTHER, SELFPAY | PROVIDERS: PCP Physician Assistant; Visit Provider Obstetrics & Gynecology | DX: D06.9 Carcinoma in situ of cervix, unspecified (principal) | CPT/HCPCS: 99212 ==

== ENCOUNTER 2022-09-01 11:48 | Day surgery (SDC) | payer OTHER, SELFPAY ==
[2022-07-17 14:34] VITALS: BMI 17.6
[2022-08-29 14:02] VITALS: BMI 20.9
--- NOTE | 2022-08-31 12:12 | HO.ANESPROP2 ---
Documented by User: Yolanda Lara NP 08/31/22 12:15 HPI - Anesthesia Eval Consult details Narrative: 52yo F for LEEP possible cone Optimized per pcp [facility] Active Problems Active Problems: All Active Problems (Updated 08/22/22 @ 13:43 by Leonardo Perez PA-C) Tobacco dependence (Acute) Pre-op evaluation (Acute) VERONIKA III (cervical intraepithelial neoplasia grade III) with severe dysplasia (Acute) HPV in female (Acute) Unintentional weight loss (Acute) Fever of unknown origin (Acute) Tongue lesion (Acute) Well woman exam (Acute) High cholesterol (Acute) Facial paresthesia (Acute) Syncope (Acute) Abnormal stress ECG with treadmill (Acute) Pulmonary emphysema (Acute) COPD (chronic obstructive pulmonary disease) (Acute) HTN (hypertension) (Acute) Neha-Danlos syndrome (Acute) Peripheral neuropathy (Acute) Atypical chest pain (Acute) Heart palpitations (Acute) Hypothyroidism (Acute ~1999) Nicotine dependence, cigarettes, uncomplicated (Acute) IBS (irritable bowel syndrome) (Acute) Diverticulitis (Acute) Chronic pancreatitis (Acute) Tubular adenoma of colon (Acute) MDD (major depressive disorder), recurrent episode, moderate (Acute) STONE (generalized anxiety disorder) (Acute) Lumbar spine pain (Acute) Vitamin D deficiency (Acute) Past Medical History Medical History COPD (chronic obstructive pulmonary disease) Dysphagia Elevated cholesterol Family history of colon cancer Family history of pancreatic cancer Fever of unknown origin History of cervical cancer HTN (hypertension) Hypothyroidism (~1999) Near syncope Nicotine dependence, cigarettes, uncomplicated Unintentional weight loss Vitamin D deficiency Family History Family History Mother Alzheimer's dementia CVD (cardiovascular disease) Maternal Grandfather Pancreatic cancer Surgical History Surgical History History of History of endometrial ablation History of throat surgery (~2011) History of tonsillectomy (~1976) Social History Social History (Updated 09/01/22 @ 13:22 by Della Valadez MD) Household Members Other:: lives at home with 20-year-old daughter Housing: Apartment Alcohol intake: never Patient Tobacco Use Status: Current everyday Tobacco user Tobacco use type: Cigarette Cigarette Packs Per Day: 0.5 Cigarettes Per Day: 10 Years Smoked: (onset 11, 1ppd x 40yrs, now 1/4ppd, 40pyh) e-Cigarette/Vaping Use: Never Used Second Hand Smoke Exposure: Yes Substance Use Type: Marijuana service: No Current occupational status: disabled Cognitive needs: No Hearing needs: No Vision needs: No Meds Allergies Allergy/AdvReac Type Severity Reaction Status Date / Time amoxicillin [From AUGMENTIN] Allergy Severe Anaphylaxis Verified 08/28/22 07:56 clavulanic acid Allergy Severe Anaphylaxis Verified 08/28/22 07:56 [From AUGMENTIN] ketorolac [From Toradol] Allergy Unknown Anaphylaxis Verified 08/28/22 07:56 prochlorperazine Allergy Unknown INVOLUNTARY Verified 08/28/22 07:56 [From COMPAZINE] SPASMS Home Medications Medication Instructions Recorded Confirmed Last Taken Type aspirin 81 mg tablet,delayed 81 mg PO DAILY 08/28/22 09/01/22 08/31/22 History release Exam Exam Date and Time: August 31, 2022 1212 Height,Weight and Vital Signs: Height 5 ft 5 in Weight 56.926 kg Pertinent Lab Results Pertinent Lab Results: Laboratory Tests 08/08/22 08/08/22 10:17 10:17 WBC 6.9 Hgb 13.7 Hct 40.0 Plt Count 277 Sodium 140 Potassium 4.5 Chloride 103 Carbon Dioxide 27 BUN 9 Creatinine 0.82 Narrative Narrative: EKG 07/2022 Vent. Rate : 067 BPM ? ? Atrial Rate : 067 BPM ?? P-R Int : 166 ms? QRS Dur : 084 ms ? ? QT Int : 368 ms ? ? ? P-R-T Axes : 055 076 066 degrees ?? QTc Int : 388 ms ? 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 States symptoms of joint instability and hypermobility have improved. Mostly involved shoulders. Not aware of affectation of blood vessels. Discussed positioning in stirrups with patient. Patient will position self comfortably before induction of anesthesia. As noted below, 3 very loose teeth in bottom with very high possibility of dislodgement. Patient aware of this and states no concerns if teeth fall out. PMFSH Active Problems Active Problems: All Active Problems (Updated 09/01/22 @ 12:58 by Della Valadez MD) Tobacco dependence (Acute) Pre-op evaluation (Acute) VERONIKA III (cervical intraepithelial neoplasia grade III) with severe dysplasia (Acute) HPV in female (Acute) Unintentional weight loss (Acute) Fever of unknown origin (Acute) Tongue lesion (Acute) Well woman exam (Acute) High cholesterol (Acute) Facial paresthesia (Acute) Syncope (Acute) Abnormal stress ECG with treadmill (Acute)03/2022-ischemic changes during recovery phase. No further work seen Pulmonary emphysema (Acute) COPD- patient denies use of inhalers. (Patient declined per Respiratory function test report). HTN (hypertension) (Acute) Neha-Danlos syndrome (Acute) Peripheral neuropathy (Acute) Atypical chest pain (Acute) Heart palpitations (Acute) Hypothyroidism (Acute ~1999) Nicotine dependence, cigarettes, uncomplicated (Acute) IBS (irritable bowel syndrome) (Acute) Diverticulitis (Acute) Chronic pancreatitis (Acute) Tubular adenoma of colon (Acute) MDD (major depressive disorder), recurrent episode, moderate (Acute) STONE (generalized anxiety disorder) (Acute) Lumbar spine pain (Acute) Vitamin D deficiency (Acute) Denies MARILEE Past Medical History Medical History COPD (chronic obstructive pulmonary disease) Dysphagia Elevated cholesterol Family history of colon cancer Family history of pancreatic cancer Fever of unknown origin History of cervical cancer HTN (hypertension) Hypothyroidism (~1999) Near syncope Nicotine dependence, cigarettes, uncomplicated Unintentional weight loss Vitamin D deficiency Family History Family History Mother Alzheimer's dementia CVD (cardiovascular disease) Maternal Grandfather Pancreatic cancer Family history of problems with anesthesia: No Surgical History Surgical History History of History of endometrial ablation History of throat surgery (~2011) History of tonsillectomy (~1976) History of Problems with Anesthesia: No Social History Social History (Updated 09/01/22 @ 13:22 by Della Valadez MD) Household Members Other:: lives at home with 20-year-old daughter Housing: Apartment Alcohol intake: never Patient Tobacco Use Status: Current everyday Tobacco user Tobacco use type: Cigarette Cigarette Packs Per Day: 0.5 Cigarettes Per Day: 10 Years Smoked: (onset 11, 1ppd x 40yrs, now 1/4ppd, 40pyh) e-Cigarette/Vaping Use: Never Used Second Hand Smoke Exposure: Yes Substance Use Type: Marijuana service: No Current occupational status: disabled Cognitive needs: No Hearing needs: No Vision needs: No Meds Allergies Allergy/AdvReac Type Severity Reaction Status Date / Time amoxicillin [From AUGMENTIN] Allergy Severe Anaphylaxis Verified 08/28/22 07:56 clavulanic acid Allergy Severe Anaphylaxis Verified 08/28/22 07:56 [From AUGMENTIN] ketorolac [From Toradol] Allergy Unknown Anaphylaxis Verified 08/28/22 07:56 prochlorperazine Allergy Unknown INVOLUNTARY Verified 08/28/22 07:56 [From COMPAZINE] SPASMS Home Medications Medication Instructions Recorded Confirmed Last Taken Type aspirin 81 mg tablet,delayed 81 mg PO DAILY 08/28/22 09/01/22 08/31/22 History release Exam Height,Weight and Vital Signs: Height 5 ft 5 in Weight 56.926 kg Vital Signs Temp Pulse Resp BP Pulse Ox O2 Del Method 09/01/22 12:35 98.5 F 73 16 118/78 99 Room Air Airway Mallampati Class: II TM Dist: >3cm Neck ROM: Full Loose/Missing/Broken Teeth: Yes (Some missing- front 3 bottom teeth very loose-barely secured. Patient called my attention to looseness. Aware of strong possibility of dislodgement and fine with that. Greatest concern would be for teeth to not fall into the oropharynx. Will take special care) Heart: RRR Lungs: CTAB. No wheezing Assessment and Plan Assessment Anesthesia Assessment: Anesthesia Plan Discussed Final Anesthetic Review Family History of Problems with Anesthesia: No History of Problems with Anesthesia: No NPO: Yes ASA Class: III Final Preanesthetic Review: No Changes in Pt Med Stat, Meds/Allgs Chart Reviewed, Consent Obtained/Reviewed and Anes Risks/Benef Reviewed Patient Risk: Intermediate Procedure Risk: Low Assessment/Block/Sedation in SS: Assess/Block/Sedation-SS Anesthetic Plan Anesthetic Plan: GA and MAC: Disposition: Standard PACU
[2022-09-01] VITALS (10 sets, daily range): BP systolic 113–146; BP diastolic 76–96; PULSE 60–77; RESP 12–18; TEMP 36.3–36.9; O2SAT 97–100
[2022-09-01 12:35] LABS: UPreg QC Valid YES; Urine Pregnancy NEGATIVE (NEGATIVE)
[2022-09-01] MEDS: Lactated Ringers 1,000 ML 100 ML IVCONT (12:53)
--- NOTE | 2022-09-01 13:30 | MHC.SHP ---
Pre-Procedural Eval Section A Date of Service: 09/01/22 The patient is an INPATIENT: No Changes since office visit: No Cold of Flu in the past 2 weeks, No New Medical Problems, No Changes in Medication and No Patient answered all questions The History & Physical has been completed within 30 days and I have reviewed it.: Yes Section B Chief Complaint: Carcinoma in situ of cervix, unspecified Allergies: Allergies Allergy/AdvReac Type Severity Reaction Status Date / Time amoxicillin [From AUGMENTIN] Allergy Severe Anaphylaxis Verified 08/28/22 07:56 clavulanic acid Allergy Severe Anaphylaxis Verified 08/28/22 07:56 [From AUGMENTIN] ketorolac [From Toradol] Allergy Unknown Anaphylaxis Verified 08/28/22 07:56 prochlorperazine Allergy Unknown INVOLUNTARY Verified 08/28/22 07:56 [From COMPAZINE] SPASMS Plan Diagnosis/Plan: Unchanged I have reviewed the history and physical and performed a pertinent physical examination on my patient. No changes have occurred unless specified. Time Spent With Patient Time: Total time managing care of this patient today ____ minutes.
--- NOTE | 2022-09-01 14:20 | P.BOP_ITS ---
Brief Operative Note Date of Service: 09/01/22 Pre-op diagnosis: VERONIKA 2-3 Post-op diagnosis: same Procedure: LEEP CONE with post CONE ECC Surgeon: Dwain Montemayor MD Anesthesia: GLMA and other (Paracervical block) Was an Supervisor Blueprinting And Photocopy used for this Procedure?: No Estimated blood loss (mL): 0 Pathology: other (Cervical cone, top-hat, Post cone ECC) Condition: stable Disposition: other (Home)
--- NOTE | 2022-09-01 14:20 | W.PM.OPN ---
Operative Note Operative Note Date of Service: 09/01/22 Narrative: Pre op diagnosis: VERONIKA 2-3 Operation: Colposcopy, Loop electrical excision procedure cone, top hat endocervical excision, post cone ECC Postop diagnosis: the same Quantitative blood loss: 50 cc Surgeon: Dwain Montemayor MD, FACOG Chief Petroleum Engineer: None Pathology: Cervical cone, top-hat endo cervical excision, endo cervical curettage Complications: none Anesthesia: GLMA and Para cervical block Procedure: The patient was put in a dorsal lithotomy position, scrubbed and draped in the usual sterile fashion. A speculum was inserted inside the patient's vagina. The cervix is assessed using the colposcope with acetic acid , the lesions were seen, and at least 1 cm of the squamocolumnar junction was observed. 20 x 5 mm size loop was selected based upon the diameter of the lesion. Lugol solution was used to outline the lesions and area of the transformation zone order to be removed 10 cc of xylocaine with epinephrine were injected submucosally into the surface of the cervix (ectocervix) at the 3, 6, 9, and 12 o'clock positions. The electrosurgical generator is set at 40 bradley on blend 1. The loop is carefully passed simultaneously around and under the transformation zone, in order to ensure excising it making sure the lesion is at least 5 mm far from the specimen margins . The loop was allowed to glide through the cervix from one side to the other, allowing the cutting current to divide the tissue, then additional tissue was excised from this area with a smaller-diameter loop , endo cervical top-hat excision was performed An endo cervical curettage is performed following completion of excision, and hemostasis is obtained with a Ball electrode or regular tip cautery. At the end, Monsel's solution was applied to the cone bed. The patient tolerated the procedure well and, all instruments were taken out of the patient vaginal cavity, and the patient was transferred to the PACU in stable condition.
[2022-09-01] MEDS: Acetaminophen 325 MG TABLET 650 MG PO (14:53)
[2022-09-01] MEDS: oxyCODONE HCl Immed Release 5 MG TABLET 10 MG PO (14:53)
[2022-09-01] MEDS: fentaNYL citrate/PF 100 MCG/2 ML VIAL 25 MCG IVPUSH ×2 (14:53→15:23)
== END 2022-09-01 16:59 | disposition home or self-care (01) ==
PROVIDERS: PCP Physician Assistant; Visit Provider Obstetrics & Gynecology
PROC: 0UBC7ZZ Excision of Cervix, Via Natural or Artificial Opening (ICD-10-PCS; CPT 57522; principal; 2022-09-01 14:10)
DX: D06.9 Carcinoma in situ of cervix, unspecified (principal); J44.9 Chronic obstructive pulmonary disease, unspecified; I10 Essential (primary) hypertension; F17.210 Nicotine dependence, cigarettes, uncomplicated; Z88.1 Allergy status to other antibiotic agents; Z88.6 Allergy status to analgesic agent
CPT/HCPCS: 57461; 81025; 88305; 88307; 88342; 88360; J1100; J1885; J2250; J2405; J3010

== ENCOUNTER 2022-09-07 11:30 | Inpatient (IN) | payer OTHER, SELFPAY ==
--- NOTE | ~2022-09-07 | XR_ITS ---
EXAMINATION: XR ABDOMEN COMPLETE CLINICAL INDICATION: Abdominal pain. COMPARISON: CT abdomen/pelvis 08/08/2022. TECHNIQUE: 2 views of the abdomen. FINDINGS: Nonobstructive bowel gas pattern. No significant stool content. Suspect hepatomegaly. Multiple small pelvic phleboliths are seen. No acute osseous abnormalities. XR/XR abdomen min 2V IMPRESSION: 1. Nonobstructive bowel gas pattern. 2. Suspect hepatomegaly.
--- NOTE | ~2022-09-07 | CT_ITS ---
EXAMINATION: CT PELVIS WITH CONTRAST CLINICAL INFORMATION: [employer] surgery now febrile with right-sided pain. COMPARISON: CT abdomen/pelvis 08/08/2022. TECHNIQUE: Helical scanning was performed with submillimeter collimation through the pelvis with the use of oral contrast and during bolus intravenous injection of 85 mL of Omnipaque 350 intravenous contrast. Sagittal and coronal multiplanar 2-D reconstructions were obtained. This CT examination was performed using dose optimization techniques as appropriate, variously including the following: *Automated exposure control *Adjustment of mA and/or kV according to patient size (this includes techniques or standardized protocols for targeted exams where dose is matched to indication/reason for exam; i.e. extremities or head) *Use of iterative reconstruction technique DLP: 133 mGy-cm FINDINGS: The cervix is engorged, heterogeneous and hyperemic with very mild pericervical fat stranding. There is heterogeneous content in the endocervical canal with a single focus of air (2:31). The vagina is under distended, limiting its evaluation, there could be some degree of hyperemia as well. The uterus is anteverted and anteflexed measuring 5.8 cm fundus to cervix, 2.5 cm anterior to posterior and 4 cm transversely. No discrete focal uterine lesion is noted. The endometrium is not well delineated, though does not appear to be significantly thickened. The ovaries are symmetric in size. No adnexal mass. Very trace amount of free fluid in the pelvis, fairly nonspecific could be physiologic. No evidence of drainable collection or abscess. No significant hematoma. No lymphadenopathy. The included portions of the small bowel are fluid filled and slightly distended. Colonic diverticulosis without significant pericolonic inflammatory changes within the [id number]. No acute or aggressive appearing osseous abnormalities. CT/CT pelvis w IV con IMPRESSION: 1. The cervix is engorged, heterogeneous and hyperemic with very mild pericervical fat stranding. These findings are nonspecific and could be related with reactive postprocedural changes versus infectious/inflammatory cervicitis. Underlying malignancy is not excluded and correlation with history is recommended. A short-term follow-up is recommended to reassess. 2. No evidence of drainable collection or abscess. 3. Fluid-filled and slightly distended small bowel, nonspecific could be associated with ileus or gastroenteritis. 4. Colonic diverticulosis without significant pericolonic inflammatory changes within the [id number]. This result was discussed with Fatou Mcqueen at 09/07/2022 3:23 PM and it was ascertained that the content and urgency of the report was understood at the time of direct communication.
[2022-09-07 12:19] VITALS: BP 127/88; PULSE 102; RESP 18; TEMP 37.6; O2SAT 100
--- NOTE | 2022-09-07 12:19 | ED.GENADULT ---
HPI - General Adult General Chief complaint: Abdominal Pain Stated complaint: post op infection? Time Seen by Provider: 09/07/22 12:34 Source: patient Mode of arrival: ambulatory Limitations: no limitations History of Present Illness HPI narrative: 52 year old female w/ history of COPD, nicolasa-danlos syndrome, HTN, and palpitationspresents w/ lower abd pain and fever X 2 days. She is S/P ?Colposcopy, Loop electrical excision procedure cone, top hat endocervical excision, post cone ECC by Dr. Montemayor due to VERONIKA 2-3on 09/01/22, Patient taking tylenol Q 4 Hrs, last dose was 1 hour ago. 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 Related Data Home Medications Medication Instructions Recorded Confirmed aspirin 81 mg tablet,delayed 81 mg PO DAILY 08/28/22 09/01/22 release Previous Rx's Medication Instructions Recorded miscellaneous medical supply #1 ea 12/28/21 (Blood Pressure Cuff) lisinopril 10 mg tablet 10 mg PO DAILY 90 days #90 tabs 05/22/22 cholecalciferol (vitamin D3) 125 125 mcg PO DAILY #30 caps 06/20/22 mcg (5,000 unit) capsule levothyroxine 112 mcg tablet 112 mcg PO DAILY #30 tabs 07/05/22 Allergies Allergy/AdvReac Type Severity Reaction Status Date / Time amoxicillin [From AUGMENTIN] Allergy Severe Anaphylaxis Verified 09/07/22 12:23 clavulanic acid Allergy Severe Anaphylaxis Verified 09/07/22 12:23 [From AUGMENTIN] ketorolac [From Toradol] Allergy Unknown Anaphylaxis Verified 09/07/22 12:23 prochlorperazine Allergy Unknown INVOLUNTARY Verified 09/07/22 12:23 [From COMPAZINE] SPASMS Review of Systems Review of Systems: Yes all other systems are reviewed and are negative Constitutional: Constitutional: Reports no additional constitutional complaints, Denies body ache(s), Denies chills, Denies fever(s), Denies headache(s) and Denies weakness Eyes: Eyes: Reports no additional eye complaints and Denies change in vision ENT: Reports system reviewed and no additional complaints, except as documented, Denies dizziness, Denies headache(s), Denies nasal congestion, Denies nasal discharge and Denies neck pain Cardiovascular: Cardiovascular: Reports no additional cardiovascular complaints, Denies chest pain, Denies leg edema and Denies dyspnea Respiratory: Respiratory: Reports no additional respiratory complaints, Denies cough and Denies dyspnea Gastrointestinal: Gastrointestinal: Reports no additional gastrointestinal complaints, Denies abdominal pain, Denies diarrhea, Denies nausea and Denies vomiting Genitourinary: Genitourinary: Reports no additional female genitourinary complaints and Denies urinary incontinence Musculoskeletal: Musculoskeletal: Reports no additional musculoskeletal complaints, Denies back pain, Denies arthralgias, Denies joint swelling, Denies neck pain, Denies numbness and Denies tingling Integumentary/Breasts: Skin/Breast: Reports system reviewed and no additional complaints, except as docu and Denies rash Neurologic: Reports system reviewed and no additional complaints, except as documented, Denies dizziness, Denies headache(s), Denies numbness, Denies tingling and Denies weakness PMFSH Past Medical History Attestation statement: The following information was validated with the patient. Source: old records reviewed and nursing notes reviewed Medical History COPD (chronic obstructive pulmonary disease) Dysphagia Elevated cholesterol Family history of colon cancer Family history of pancreatic cancer Fever of unknown origin History of cervical cancer HTN (hypertension) Hypothyroidism (~1999) Near syncope Nicotine dependence, cigarettes, uncomplicated Unintentional weight loss Vitamin D deficiency Surgical History History of History of endometrial ablation History of throat surgery (~2011) History of tonsillectomy (~1976) Family History Family History Mother Alzheimer's dementia CVD (cardiovascular disease) Maternal Grandfather Pancreatic cancer Social History Social History Household Members Other:: lives at home with 20-year-old daughter Housing: Apartment Alcohol intake: never Patient Tobacco Use Status: Current everyday Tobacco user Tobacco use type: Cigarette Cigarette Packs Per Day: 0.5 Cigarettes Per Day: 10 Years Smoked: (onset 11, 1ppd x 40yrs, now 1/4ppd, 40pyh) Smoked in Last 30 Days: Yes e-Cigarette/Vaping Use: Never Used Second Hand Smoke Exposure: Yes Use of substances other than those prescribed or required for medical reasons: Yes Substance Use Type: Marijuana Advance Directives: No service: No Current occupational status: disabled Cognitive needs: No Hearing needs: No Vision needs: No Physical Exam ED Vital Signs: Vital Signs - 24 hr 09/07/22 12:19 09/07/22 14:54 Temperature 99.7 F 98.6 F Pulse Rate 102 H 84 Respiratory Rate 18 18 Blood Pressure 127/88 156/98 H Pulse Oximetry 100 99 Oxygen Delivery Method Room Air Room Air BMI result Body Mass Index 20.0 Const General: cooperative, healthy appearing, comfortable and no acute distress Orientation/consciousness: patient oriented x3 Limitations: no limitations HENMT Head: Yes normal to inspection Ears: hearing grossly normal bilaterally Eyes General: appearance normal, both eyes and all related structures Pupils: Equal, round and reactive pupils present Neck Neck: Yes normal visual inspection, Yes full ROM, Yes no lymphadenopathy and Yes no meningeal signs Chest Chest palpation & inspection: normal inspection of the chest Resp Effort & Inspection: normal respiratory effort Auscultation: clear to auscultation bilaterally Cardio Rate: tachycardic Rhythm: regular rhythm Peripheral pulses: Peripheral pulses 2+ throughout GI Inspection: Yes normal to inspection Palpation (GI): Soft to palpation, Tenderness to palpation present (GI) (Mild tenderness to the right lower abdomen suprapubic) with no rebound tenderness and no guarding Auscultation: normal bowel sounds 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 +CMT Negative adnexal tenderness or passes. +cervical discharge (milky brown) Back/Spine/Pelvis Thoracic/Lumbar Spine: thoracic and lumbar spine normal to inspection Skin General skin exam: no rashes or lesions noted Neuro General: patient oriented x3, moves all extremities and no meningeal signs Cranial nerves: Yes Equal, round and reactive pupils present Course Course Course Narrative: This is an RME: Additional HPI, ROS, PE not included below will be deferred to primary provider. 52 year old female presents w/ lower abd pain and fever X a few days. She is S/P ?Colposcopy, Loop electrical excision procedure cone, top hat endocervical excision, post cone ECC by Dr. Montemayor due to VERONIKA 2-3on 09/01/22, Patient taking tylenol Q 4 Hrs, last dose was 1 hour ago. Denies N/V, vaginal bleeding, headache, cp, sob PE diffuse lower abd pain Plan- labs, Ua, blood cultures, lactic Reevaluation(s) Reevaluation #1: 153- IMPRESSION: 1.? The cervix is engorged, heterogeneous and hyperemic with very mild pericervical fat stranding. These findings are nonspecific and could be related with reactive postprocedural changes versus infectious/inflammatory cervicitis. Underlying malignancy is not excluded and correlation with history is recommended. A short-term follow-up is recommended to reassess. 2.? No evidence of drainable collection or abscess. 3.? Fluid-filled and slightly distended small bowel, nonspecific could be associated with ileus or gastroenteritis. 4.? Colonic diverticulosis without significant pericolonic inflammatory changes within the [id number]. -patient with no complaints of vomiting or diarrhea. Patient has been having normal bowel movements with +flatus. Doubt gastroenteritis or ileus. We will seek General surgery's input prior to admission Medications Administered Generic Name Dose Route Start Last Admin Trade Name Freq PRN Reason Stop Dose Admin Metronidazole 500 mg in 100 mls @ 100 mls/hr 09/07/22 15:18 09/07/22 15:29 Flagyl IV 09/07/22 16:17 100 mls/hr ONCE ONE Administration Discontinued Medications Generic Name Dose Route Start Last Admin Trade Name Freq PRN Reason Stop Dose Admin Acetaminophen 975 mg 09/07/22 15:17 09/07/22 15:28 Acetaminophen 325 Mg Tablet PO 09/07/22 15:18 975 mg ONCE ONE Administration Sodium Chloride 1,000 mls @ 999 mls/hr 09/07/22 12:50 09/07/22 14:52 Ns IV 09/07/22 13:50 Infused .Q1H1M STA Infusion Ceftriaxone Sodium 1 gm/ 50 mls @ 100 mls/hr 09/07/22 12:53 09/07/22 14:14 Sodium Chloride IV 09/07/22 13:22 Infused ONCE ONE Infusion Iohexol 100 ml 09/07/22 14:03 09/07/22 14:03 Iohexol 350 Mg/Ml 100 Ml Infus..Btl IV 09/07/22 14:04 85 ml ONCE ONE Administration Medical Decision Making Medical Decision Making MDM Narrative: 52-year-old female who is postop day 6 for a Colposcopy, Loop electrical excision procedure cone, top hat endocervical excision, post cone ECC by Dr. Montemayor due to VERONIKA 2-3 here with complaints of lower abdominal pain and fever with max temp of 102.5 degrees for the last 2 days. Patient spoke to the on-call wood scaler was referred into the ER for further evaluation. On arrival patient with tenderness the suprapubic area and right lower abdomen with no rebound or guarding. Abdomen is soft. Patient overall is nontoxic appearing Patient does have a temperature of 99.7 degrees and heart rate of 102. Spoke to on-call gynecology who recommended labs including blood cultures and lactic acid, pelvic exam, abdominal x-ray, pelvis CT with IV contrast. At this time infection suspected. Antibiotics ordered (listed allergy to Augmentin-patient reports she can not tolerate amoxicillin fine but has anaphylaxis to clavulanic acid) Differential Diagnosis Differential Diagnoses: The differential diagnosis associated with the presentation includes PID, UTI, postoperative complication Low concern for perf Consult Healthcare Provider Management of the patient was discussed with: Hospitalist and [facility] [employer] [id number] spoke to Dr. Montemayor when this patient arrived in the emergency room. He also came down to see the patient and examined her. He would like the patient admitted for IV antibiotics for presumed PID. Recommended treating the patient with ceftriaxone, Flagyl and doxycycline General Surgery-Due to concern for possible ileus versus gastroenteritis on CT scan general surgery was consulted. Dr. King reviewed the CT scan and saw the patient at the bedside. Does not feel that the patient has no obstruction or ileus. Medicine-spoke to Dr. Green who accepted admission Lab Data MDM Lab Attestation statement: I reviewed the patient's lab results. 09/07/22 12:53 09/07/22 12:53 Labs: Lab Results 09/07/22 09/07/22 09/07/22 Range/Units 12:53 12:53 12:53 WBC 8.6 (4.8-10.8) X10*3/uL RBC 4.77 (4.20-5.50) X10*6/uL Hgb 14.4 (12.0-16.0) g/dl Hct 41.9 (37.0-47.0) % MCV 87.8 (80.0-98.0) fL MCH 30.2 (27.0-33.0) pg MCHC 34.4 (31.0-35.0) g/dl RDW 12.1 (11.0-16.0) % Plt Count 302 (160-400) X10*3/uL MPV 9.1 L (9.4-12.3) fL Immature Gran % (Auto) 0.3 (0.0-0.4) % Neut % (Auto) 70.9 (45-73) % Lymph % (Auto) 20.4 (20-40) % [place] % (Auto) 7.4 (2-11) % Eos % (Auto) 0.8 (0-4) % Baso % (Auto) 0.2 (0-2) % Lymph # (Auto) 1.8 (1.2-4.9) X10*3/uL [place] # (Auto) 0.6 (0.1-1.2) X10*3/uL Eos # (Auto) 0.1 (0.0-0.4) X10*3/uL Baso # (Auto) 0.0 (0.0-0.2) X10*3/uL Abs Immat Gran (auto) 0.03 (0.00-0.03) X10*3/uL Absolute Neuts (auto) 6.1 (2.0-8.3) x10*3/uL Absolute Nucleated RBC 0.000 (0.0-0.012) X10*3/uL Nucleated RBC % (auto) 0.0 (0.0-0.2) /100WBC Sodium 140 (135-145) mmol/L Potassium 4.2 (3.3-5.1) mmol/L Chloride 102 (96-108) mmol/L Carbon Dioxide 29 (22-29) mmol/L Anion Gap 13 (12-20) BUN 7 L (9-16) mg/dL Creatinine 0.76 (0.5-1.4) mg/dL Estim Creat Clear Calc 73.5 Estimated GFR > 60 Random Glucose 100 (60-115) mg/dL Lactic Acid 1.1 (0.5-2.0) mmol/L Calcium 9.9 (8.4-10.2) mg/dL Magnesium 1.9 (1.6-2.6) mg/dL Total Bilirubin 0.4 (0.0-1.0) mg/dL AST 14 (5-31) U/L ALT 17 (0-31) U/L Alkaline Phosphatase 66 (39-117) U/L Total Protein 7.3 (6.5-8.0) g/dL Albumin 4.4 (3.5-5.0) g/dL Urine Color Urine Appearance Urine pH (5.0-9.0) Ur Specific [place] (1.005-1.025) Urine Protein (Neg-Trace) mg/dL Urine Glucose (UA) (Negative) mg/dL Urine Ketones (Negative) mg/dL Urine Blood (Negative) Urine Nitrite (Negative) Ur Leukocyte Esterase (Negative) Urine RBC (0-2) /HPF Urine WBC (0-5) /HPF Ur Squamous Epith Cells (0-2) /HPF Urine Bacteria (None Seen) Hyaline Casts (0-2) /LPF Chlam trachomat DNA PCR (Not Detect.) COVID-19 ([facility]) (Negative) COVID-19 Clin Com N.gonorrhoeae DNA (PCR) (Not Detect.) 09/07/22 09/07/22 09/07/22 Range/Units 13:14 13:14 15:27 WBC (4.8-10.8) X10*3/uL RBC (4.20-5.50) X10*6/uL Hgb (12.0-16.0) g/dl Hct (37.0-47.0) % MCV (80.0-98.0) fL MCH (27.0-33.0) pg MCHC (31.0-35.0) g/dl RDW (11.0-16.0) % Plt Count (160-400) X10*3/uL MPV (9.4-12.3) fL Immature Gran % (Auto) (0.0-0.4) % Neut % (Auto) (45-73) % Lymph % (Auto) (20-40) % [place] % (Auto) (2-11) % Eos % (Auto) (0-4) % Baso % (Auto) (0-2) % Lymph # (Auto) (1.2-4.9) X10*3/uL [place] # (Auto) (0.1-1.2) X10*3/uL Eos # (Auto) (0.0-0.4) X10*3/uL Baso # (Auto) (0.0-0.2) X10*3/uL Abs Immat Gran (auto) (0.00-0.03) X10*3/uL Absolute Neuts (auto) (2.0-8.3) x10*3/uL Absolute Nucleated RBC (0.0-0.012) X10*3/uL Nucleated RBC % (auto) (0.0-0.2) /100WBC Sodium (135-145) mmol/L Potassium (3.3-5.1) mmol/L Chloride (96-108) mmol/L Carbon Dioxide (22-29) mmol/L Anion Gap (12-20) BUN (9-16) mg/dL Creatinine (0.5-1.4) mg/dL Estim Creat Clear Calc Estimated GFR Random Glucose (60-115) mg/dL Lactic Acid (0.5-2.0) mmol/L Calcium (8.4-10.2) mg/dL Magnesium (1.6-2.6) mg/dL Total Bilirubin (0.0-1.0) mg/dL AST (5-31) U/L ALT (0-31) U/L Alkaline Phosphatase (39-117) U/L Total Protein (6.5-8.0) g/dL Albumin (3.5-5.0) g/dL Urine Color Yellow Urine Appearance Cloudy Urine pH 6.5 (5.0-9.0) Ur Specific [place] <= 1.005 (1.005-1.025) Urine Protein 30 (1+) H (Neg-Trace) mg/dL Urine Glucose (UA) Negative (Negative) mg/dL Urine Ketones Negative (Negative) mg/dL Urine Blood Large (3+) H (Negative) Urine Nitrite Negative (Negative) Ur Leukocyte Esterase Large (3+) H (Negative) Urine RBC 11-20 H (0-2) /HPF Urine WBC >50 H (0-5) /HPF Ur Squamous Epith Cells 0-2 (0-2) /HPF Urine Bacteria 1+ (None Seen) Hyaline Casts 0-2 (0-2) /LPF Chlam trachomat DNA PCR NOT DETECTED (Not Detect.) COVID-19 ([facility]) Negative (Negative) COVID-19 Clin Com See Note N.gonorrhoeae DNA (PCR) NOT DETECTED (Not Detect.) Independent Interpretation I performed an independent interpretation of an: Plain X-Ray and CT Scan Interpretation: I independently reviewed the x-ray and the CT scan and agree with radiologist's report Radiology Impression Discussion of test interpretation with radiology: I have reviewed the radiologist's reading. Radiologist Impression: [address] [address] XRay Report Signed Patient: Basilia Sawyer MR#: [id number] : 1970 Acct:[id number] Age/Sex: 52 / F ADM Date: 09/07/22 Loc: .ED Attending Dr: Ordering Physician: Fatou Jimenez NP Date of Service: 09/07/22 Procedure(s): XR abdomen min 2V Accession Number(s): [id number] cc: Fatou Jimenez NP~ EXAMINATION: XR ABDOMEN COMPLETE CLINICAL INDICATION: Abdominal pain. COMPARISON: CT abdomen/pelvis 08/08/2022. TECHNIQUE: 2 views of the abdomen. FINDINGS: Nonobstructive bowel gas pattern. No significant stool content. Suspect hepatomegaly. Multiple small pelvic phleboliths are seen. No acute osseous abnormalities. XR/XR abdomen min 2V IMPRESSION: 1.? Nonobstructive bowel gas pattern. 2.? Suspect hepatomegaly. ? FINDINGS: The cervix is engorged, heterogeneous and hyperemic with very mild pericervical fat stranding. There is heterogeneous content in the endocervical canal with a single focus of air (2:31). The vagina is under distended, limiting its evaluation, there could be some degree of hyperemia as well. The uterus is anteverted and anteflexed measuring 5.8 cm fundus to cervix, 2.5 cm anterior to posterior and 4 cm transversely. No discrete focal uterine lesion is noted. The endometrium is not well delineated, though does not appear to be significantly thickened. The ovaries are symmetric in size. No adnexal mass. Very trace amount of free fluid in the pelvis, fairly nonspecific could be physiologic. No evidence of drainable collection or abscess. No significant hematoma. No lymphadenopathy. The included portions of the small bowel are fluid filled and slightly distended. Colonic diverticulosis without significant pericolonic inflammatory changes within the [id number]-[id number]. No acute or aggressive appearing osseous abnormalities. CT/CT pelvis w IV con IMPRESSION: 1.? The cervix is engorged, heterogeneous and hyperemic with very mild pericervical fat stranding. These findings are nonspecific and could be related with reactive postprocedural changes versus infectious/inflammatory cervicitis. Underlying malignancy is not excluded and correlation with history is recommended. A short-term follow-up is recommended to reassess. 2.? No evidence of drainable collection or abscess. 3.? Fluid-filled and slightly distended small bowel, nonspecific could be associated with ileus or gastroenteritis. 4.? Colonic diverticulosis without significant pericolonic inflammatory changes within the [id number]. ? This result was discussed with Fatou Mcqueen at 09/07/2022 3:23 PM and it was ascertained that the content and urgency of the report was understood at the time of direct communication. ? Discharge Plan Discharge Clinical Impression: Acute pelvic inflammatory disease (PID) Patient Disposition: Admitted As Inpatient
[2022-09-07 13:15] LABS: Lactic Acid 1.1 mmol/L (0.5-2.0)
[2022-09-07 13:23] LABS: MANUAL DIFF FLAG NO
[2022-09-07 13:25] LABS: Appearance Urine Cloudy; Color Urine Yellow; Glucose Urine UA Negative (Negative); Leukocyte Esterase Urine Large (3+) (Negative); Nitrite Urine Negative (Negative); PH 6.5 (5.0-9.0); Specific Gravity - Urine <= 1.005 (1.005-1.025); UMIC TRIGGER UACC YES; Urine Blood Large (3+) (Negative); Urine Ketones Negative (Negative); Urine Protein 30 (1+) mg/dL (Neg-Trace)
[2022-09-07 13:26] LABS: Basophils Percent Auto 0.2 % (0-2); Eosinophils Absolute Auto 0.1 X10*3/uL (0.0-0.4); Eosinophils Percent Auto 0.8 % (0-4); Hematocrit 41.9 % (37.0-47.0); Hemoglobin 14.4 g/dl (12.0-16.0); Imm Gran Abs Auto 0.03 X10*3/uL (0.00-0.03); Imm Gran Pct Auto 0.3 % (0.0-0.4); Lymphocytes Absolute Auto 1.8 X10*3/uL (1.2-4.9); Lymphocytes Percent Auto 20.4 % (20-40); Mean Corpuscular HGB Conc 34.4 g/dl (31.0-35.0); Mean Corpuscular Hemoglobin 30.2 pg (27.0-33.0); Mean Corpuscular Volume 87.8 fL (80.0-98.0); Mean Platelet Volume 9.1 fL (9.4-12.3); Monocytes Absolute Auto 0.6 X10*3/uL (0.1-1.2); Monocytes Percent Auto 7.4 % (2-11); Neutrophils Absolute Auto 6.1 x10*3/uL (2.0-8.3); Neutrophils Percent Auto 70.9 % (45-73); Platelet Count 302 X10*3/uL (160-400); Red Blood Count 4.77 X10*6/uL (4.20-5.50); Red Cell Distribution Width 12.1 % (11.0-16.0); White Blood Count 8.6 X10*3/uL (4.8-10.8)
[2022-09-07] MEDS: 0.9 % Sodium Chloride 1,000 ML 999 ML IV (13:26)
[2022-09-07] MEDS: cefTRIAXone sodium 1 GM in 0.9 % Sodium Chloride 50 ML IV (13:33)
[2022-09-07 13:34] LABS: Bacteria Urine 1+ (None Seen); Hyaline Casts Urine 0-2 /LPF (0-2); Squamous Epithelial Cell Urine 0-2 /HPF (0-2); UACC Culture Trigger YES; WBC Urine >50 /HPF (0-5)
[2022-09-07 13:38] LABS: Alanine Aminotransferase 17 U/L (0-31); Albumin Level 4.4 g/dL (3.5-5.0); Alkaline Phosphatase 66 U/L (39-117); Anion Gap 13 (12-20); Aspartate Amino Transferase 14 U/L (5-31); Bilirubin Total 0.4 mg/dL (0.0-1.0); Blood Urea Nitrogen 7 mg/dL (9-16); Calcium 9.9 mg/dL (8.4-10.2); Carbon Dioxide 29 mmol/L (22-29); Chloride 102 mmol/L (96-108); Creatinine Clr Calc Pharmacy 73.5; Estimated Glomerular Filt Rate > 60; Glucose Random 100 mg/dL (60-115); Magnesium 1.9 mg/dL (1.6-2.6); Potassium 4.2 mmol/L (3.3-5.1); Sodium 140 mmol/L (135-145); Total Protein 7.3 g/dL (6.5-8.0)
--- NOTE | 2022-09-07 13:40 | PC.NURSE ---
pt medicated per JUN. place 20G IV in right AC. currently infusing 1g Rocephin, and 1L NS. 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
[2022-09-07] MEDS: iohexoL 350 MG/ML 100 ML INFUS..BTL IV (14:03)
[2022-09-07 14:54] VITALS: BP 156/98; PULSE 84; RESP 18; TEMP 37; O2SAT 99
--- NOTE | 2022-09-07 15:18 | PM.GYNHP ---
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 Review of Systems ROS Unobtainable: All systems reviewed & are unremarkable except as noted in HPI and below OB PMFSH Past Medical History Medical History COPD (chronic obstructive pulmonary disease) Dysphagia Elevated cholesterol Family history of colon cancer Family history of pancreatic cancer Fever of unknown origin History of cervical cancer HTN (hypertension) Hypothyroidism (~1999) Near syncope Nicotine dependence, cigarettes, uncomplicated Unintentional weight loss Vitamin D deficiency Family History Family History Mother Alzheimer's dementia CVD (cardiovascular disease) Maternal Grandfather Pancreatic cancer Surgical History Surgical History History of History of endometrial ablation History of throat surgery (~2011) History of tonsillectomy (~1976) Social History Social History Household Members Other:: lives at home with 20-year-old daughter Housing: Apartment Alcohol intake: never Patient Tobacco Use Status: Current everyday Tobacco user Tobacco use type: Cigarette Cigarette Packs Per Day: 0.5 Cigarettes Per Day: 10 Years Smoked: (onset 11, 1ppd x 40yrs, now 1/4ppd, 40pyh) Smoked in Last 30 Days: Yes e-Cigarette/Vaping Use: Never Used Second Hand Smoke Exposure: Yes Use of substances other than those prescribed or required for medical reasons: Yes Substance Use Type: Marijuana Advance Directives: No service: No Current occupational status: disabled Cognitive needs: No Hearing needs: No Vision needs: No Meds Allergies Allergy/AdvReac Type Severity Reaction Status Date / Time amoxicillin [From AUGMENTIN] Allergy Severe Anaphylaxis Verified 09/07/22 12:23 clavulanic acid Allergy Severe Anaphylaxis Verified 09/07/22 12:23 [From AUGMENTIN] ketorolac [From Toradol] Allergy Unknown Anaphylaxis Verified 09/07/22 12:23 prochlorperazine Allergy Unknown INVOLUNTARY Verified 09/07/22 12:23 [From COMPAZINE] SPASMS Home Medications Medication Instructions Recorded Confirmed Last Taken Type aspirin 81 mg tablet,delayed 81 mg PO DAILY 08/28/22 09/01/22 08/31/22 History release PROBATION WORKER Physical Exam Vitals Vital signs: Temp Pulse Resp BP Pulse Ox O2 Del Method 98.6 F 84 18 156/98 H 99 Room Air 09/07/22 14:54 09/07/22 14:54 09/07/22 14:54 09/07/22 14:54 09/07/22 14:54 09/07/22 14:54 BMI result Body Mass Index 20.0 Lungs Auscultation: Clear to auscultation Cardiovascular Auscultation: RRR Abdomen Auscultation/Inspection/Palpation: Soft, Non-distended and No tenderness Female Genitalia (Pelvic) Bladder/Urethra: Normal meatus Vulva: No lesions Uterus: Tender Adnexa/Parametria: Adnexal Tenderness: Bilateral Additional Comments: Cervix status post LEEP no evidence of hematoma, or any other abnormalities PROBATION WORKER - Results Labs 09/07/22 12:53 09/07/22 12:53 Labs: Short CBC 09/07/22 Range/Units 12:53 WBC 8.6 (4.8-10.8) X10*3/uL Hgb 14.4 (12.0-16.0) g/dl Hct 41.9 (37.0-47.0) % Plt Count 302 (160-400) X10*3/uL BMP 09/07/22 12:53 Sodium 140 Potassium 4.2 Chloride 102 Carbon Dioxide 29 BUN 7 L Creatinine 0.76 Calcium 9.9 Liver Function 09/07/22 Range/Units 12:53 Total Bilirubin 0.4 (0.0-1.0) mg/dL AST 14 (5-31) U/L ALT 17 (0-31) U/L Alkaline Phosphatase 66 (39-117) U/L Albumin 4.4 (3.5-5.0) g/dL Urine 09/07/22 Range/Units 13:14 Urine Color Yellow Urine Appearance Cloudy Urine pH 6.5 (5.0-9.0) Ur Specific [place] <= 1.005 (1.005-1.025) Urine Protein 30 (1+) H (Neg-Trace) mg/dL Urine Glucose (UA) Negative (Negative) mg/dL Imaging Abdominal x-ray: Radiologist's impression: ITS Impressions Abdomen X-Ray 09/07/22 13:04 IMPRESSION: 1. Nonobstructive bowel gas pattern. 2. Suspect hepatomegaly. CT scan - pelvis: Radiologist's impression: ITS Impressions Abdomen X-Ray 09/07/22 13:04 IMPRESSION: 1. Nonobstructive bowel gas pattern. 2. Suspect hepatomegaly. Pelvis CT 09/07/22 14:07 IMPRESSION: 1. The cervix is engorged, heterogeneous and hyperemic with very mild pericervical fat stranding. These findings are nonspecific and could be related with reactive postprocedural changes versus infectious/inflammatory cervicitis. Underlying malignancy is not excluded and correlation with history is recommended. A short-term follow-up is recommended to reassess. 2. No evidence of drainable collection or abscess. 3. Fluid-filled and slightly distended small bowel, nonspecific could be associated with ileus or gastroenteritis. 4. Colonic diverticulosis without significant pericolonic inflammatory changes within the rfiov-ni-nben. This result was discussed with Fatou Mcqueen at 09/07/2022 3:23 PM and it was ascertained that the content and urgency of the report was understood at the time of direct communication. Assessment and Plan (1) Pelvic inflammatory disease (PID): Status: Acute GC/CT, BV panel with Trichomonas collected. Urine culture. Blood culture sent. Will admit for parenteral IV empiric antibiotic treatment with ceftriaxone 1 g IV Q 24 hours plus doxycycline 100 mg IV and Flagyl 500 mg IV q.12 hours. Once the patient's temperature drops for more than 24 hours and her clinical situation improves will discharge on p.o. antibiotics, doxycycline and Flagyl p.o. Tylenol p.r.n. for pain IV hydration Time Spent With Patient Time: Total time managing care of this patient today ____ minutes.
[2022-09-07] MEDS: Acetaminophen 325 MG TABLET 975 MG PO (15:28)
[2022-09-07] MEDS: metroNIDAZOLE/NS 500 MG/100 ML PIGGYBACK 100 MG IV (15:29)
--- NOTE | 2022-09-07 15:32 | P.CONOB_ITS ---
[employer] - CN: HPI Data of Consult Consult date: 09/07/22 Primary Care Provider: Leonardo Perez PA-C Consult Narrative Narrative: I was consulted on Basilia Sawyer who is a 52 year old female postop day 6 from cervical LEEP, top-hat excision, post cone ECC for VERONIKA 2-3 presented emergency room with a 2 day history of fever, lower abdominal discomfort associated with urinary frequency, no dysuria or urgency, no vaginal bleeding, no nausea or vomiting, no constipation or diarrhea no shortness of breath or chest pain. cc:: CC: OB [facility] Past Medical History Medical History COPD (chronic obstructive pulmonary disease) Dysphagia Elevated cholesterol Family history of colon cancer Family history of pancreatic cancer Fever of unknown origin History of cervical cancer HTN (hypertension) Hypothyroidism (~1999) Near syncope Nicotine dependence, cigarettes, uncomplicated Unintentional weight loss Vitamin D deficiency Family History Family History Mother Alzheimer's dementia CVD (cardiovascular disease) Maternal Grandfather Pancreatic cancer Surgical History Surgical History History of History of endometrial ablation History of throat surgery (~2011) History of tonsillectomy (~1976) Social History Social History Household Members Other:: lives at home with 20-year-old daughter Housing: Apartment Alcohol intake: never Patient Tobacco Use Status: Current everyday Tobacco user Tobacco use type: Cigarette Cigarette Packs Per Day: 0.5 Cigarettes Per Day: 10 Years Smoked: (onset 11, 1ppd x 40yrs, now 1/4ppd, 40pyh) Smoked in Last 30 Days: Yes e-Cigarette/Vaping Use: Never Used Second Hand Smoke Exposure: Yes Use of substances other than those prescribed or required for medical reasons: Yes Substance Use Type: Marijuana Advance Directives: No service: No Current occupational status: disabled Cognitive needs: No Hearing needs: No Vision needs: No Meds Allergies Allergy/AdvReac Type Severity Reaction Status Date / Time amoxicillin [From AUGMENTIN] Allergy Severe Anaphylaxis Verified 09/07/22 12:23 clavulanic acid Allergy Severe Anaphylaxis Verified 09/07/22 12:23 [From AUGMENTIN] ketorolac [From Toradol] Allergy Unknown Anaphylaxis Verified 09/07/22 12:23 prochlorperazine Allergy Unknown INVOLUNTARY Verified 09/07/22 12:23 [From COMPAZINE] SPASMS Active Medications: Current Medications Metronidazole (Flagyl) 500 mg in 100 mls @ 100 mls/hr IV ONCE ONE Stop: 09/07/22 16:17 Last Admin: 09/07/22 15:29 Dose: 100 mls/hr Doxycycline Hyclate 100 mg/ (Sodium Chloride) 250 mls @ 166.67 mls/hr IV ONCE ONE Stop: 09/07/22 16:47 Pharmacy Consult (Consult Rx Perform Med Rec) 1 each MISCELLANE ONCE PRN PRN Reason: Consult order Home Medications Medication Instructions Recorded Confirmed Last Taken Type aspirin 81 mg tablet,delayed 81 mg PO DAILY 08/28/22 09/07/22 09/07/22 History release levothyroxine 112 mcg tablet 112 mcg PO DAILY@0600 09/07/22 09/07/22 09/07/22 History [employer] Physical Exam Vitals Vital signs: Temp Pulse Resp BP Pulse Ox O2 Del Method 98.6 F 84 18 156/98 H 99 Room Air 09/07/22 14:54 09/07/22 14:54 09/07/22 14:54 09/07/22 14:54 09/07/22 14:54 09/07/22 14:54 BMI result Body Mass Index 20.0 Cardiovascular Auscultation: RRR Abdomen Auscultation/Inspection/Palpation: Soft, Non-distended and No tenderness Female Genitalia (Pelvic) Bladder/Urethra: Normal meatus Vagina: Nontender Cervix: Cervical motion tenderness Uterus: Tender Adnexa/Parametria: Adnexal Tenderness: Bilateral and Adnexal Mass: None Additional Comments: Cervix post LEEP looking, healing well no evidence of the erythema or pus [employer] - Results Labs 09/07/22 12:53 09/07/22 12:53 Labs: Short CBC 09/07/22 Range/Units 12:53 WBC 8.6 (4.8-10.8) X10*3/uL Hgb 14.4 (12.0-16.0) g/dl Hct 41.9 (37.0-47.0) % Plt Count 302 (160-400) X10*3/uL BMP 09/07/22 12:53 Sodium 140 Potassium 4.2 Chloride 102 Carbon Dioxide 29 BUN 7 L Creatinine 0.76 Calcium 9.9 Liver Function 09/07/22 Range/Units 12:53 Total Bilirubin 0.4 (0.0-1.0) mg/dL AST 14 (5-31) U/L ALT 17 (0-31) U/L Alkaline Phosphatase 66 (39-117) U/L Albumin 4.4 (3.5-5.0) g/dL Urine 09/07/22 Range/Units 13:14 Urine Color Yellow Urine Appearance Cloudy Urine pH 6.5 (5.0-9.0) Ur Specific [place] <= 1.005 (1.005-1.025) Urine Protein 30 (1+) H (Neg-Trace) mg/dL Urine Glucose (UA) Negative (Negative) mg/dL Imaging Abdominal x-ray: Radiologist's impression: ITS Impressions Abdomen X-Ray 09/07/22 13:04 IMPRESSION: 1. Nonobstructive bowel gas pattern. 2. Suspect hepatomegaly. Pelvis CT 09/07/22 14:07 IMPRESSION: 1. The cervix is engorged, heterogeneous and hyperemic with very mild pericervical fat stranding. These findings are nonspecific and could be related with reactive postprocedural changes versus infectious/inflammatory cervicitis. Underlying malignancy is not excluded and correlation with history is recommended. A short-term follow-up is recommended to reassess. 2. No evidence of drainable collection or abscess. 3. Fluid-filled and slightly distended small bowel, nonspecific could be associated with ileus or gastroenteritis. 4. Colonic diverticulosis without significant pericolonic inflammatory changes within the [id number]. This result was discussed with Fatou Mcqueen at 09/07/2022 3:23 PM and it was ascertained that the content and urgency of the report was understood at the time of direct communication. Assessment and Plan (1) Pelvic inflammatory disease (PID): Status: Acute Plan GC/CT, BV panel Trichomonas, urine culture and blood culture sent. Consult general surgery for small bowel findings on CT scan showing Fluid-filled and slightly distended small bowel, nonspecific could be associated with ileus or gastroenteritis Recommend admission for IV antibiotics with Ceftriaxone 1 g Q 24, doxycycline 100 mg p.o. or IV q.12, metronidazole 500 mg IV or p.o. q.12 till clinical improvement for 48-72 hours, then discharge home on doxycycline 100 mg p.o. b.i.d. with Flagyl 500 mg p.o. b.i.d. for a total of 14 days, to be followed up as an outpatient within 2 weeks. Tylenol p.r.n. for pain This note was generated with a voice recognition program. Some errors may have been overlooked during the review of this note. Sometimes these errors may affect the content or meaning of a given sentence. Time Spent With Patient Time: Total time managing care of this patient today ____ minutes.
[2022-09-07 15:35] LABS: CT PCR NOT DETECTED (Not Detect.); NG PCR NOT DETECTED (Not Detect.)
[2022-09-07 15:50] LABS: COVID-19 Test Negative (Negative); IDNOW Serial# BCCEAD1C
--- NOTE | 2022-09-07 15:57 | PM.CNGS ---
History of Present Illness Consult details Consult date: 09/07/22 Narrative: 52-year-old female here in the ER because of pelvic pain. She had LEEP procedure 6 days ago. She said she had been doing well after that but about 2 days ago, she had a fever at home. She then started to have lower abdominal/pelvic pain yesterday which worsened this morning. She therefore came to the emergency room. She had also noticed frequency of urination. She denies any diarrhea or vomiting. She says she has good flatus and has had good bowel movements. She had a CAT scan suggestive of inflammation of the cervix, likely secondary to the LEEP procedure. However there was note of some dilated small bowel loops so I was consulted. Review of Systems Review of Systems: No unobtainable due to endotracheal tube Constitutional: Constitutional: Denies chills and Reports fever(s) Cardiovascular: Cardiovascular: Denies chest pain, Denies dyspnea and Denies dyspnea on exertion Respiratory: Respiratory: Denies cough, Denies dyspnea and Denies dyspnea on exertion Gastrointestinal: Gastrointestinal: Denies hematochezia and Denies change in bowel habits Genitourinary: Genitourinary: Denies hematuria Comments: Has had frequency of urination Musculoskeletal: Musculoskeletal: Denies back pain and Denies limited range of motion Neurologic: Denies focal weakness and Denies convulsions Psychiatric: Psychiatric: Denies depression and Denies mood swings PMFSH Past Medical History Medical History (Updated 09/07/22 @ 16:02 by Damian King MD) COPD (chronic obstructive pulmonary disease) Dysphagia Elevated cholesterol Family history of colon cancer Family history of pancreatic cancer Fever of unknown origin History of cervical cancer HTN (hypertension) Hypothyroidism (~1999) Near syncope Nicotine dependence, cigarettes, uncomplicated Pelvic pain Unintentional weight loss Vitamin D deficiency Family History Family History Mother Alzheimer's dementia CVD (cardiovascular disease) Maternal Grandfather Pancreatic cancer Surgical History Surgical History History of History of endometrial ablation History of throat surgery (~2011) History of tonsillectomy (~1976) Social History Social History Household Members Other:: lives at home with 20-year-old daughter Housing: Apartment Alcohol intake: never Patient Tobacco Use Status: Current everyday Tobacco user Tobacco use type: Cigarette Cigarette Packs Per Day: 0.5 Cigarettes Per Day: 10 Years Smoked: (onset 11, 1ppd x 40yrs, now 1/4ppd, 40pyh) Smoked in Last 30 Days: Yes e-Cigarette/Vaping Use: Never Used Second Hand Smoke Exposure: Yes Use of substances other than those prescribed or required for medical reasons: Yes Substance Use Type: Marijuana Advance Directives: No service: No Current occupational status: disabled Cognitive needs: No Hearing needs: No Vision needs: No Meds Allergies Allergy/AdvReac Type Severity Reaction Status Date / Time amoxicillin [From AUGMENTIN] Allergy Severe Anaphylaxis Verified 09/07/22 12:23 clavulanic acid Allergy Severe Anaphylaxis Verified 09/07/22 12:23 [From AUGMENTIN] ketorolac [From Toradol] Allergy Unknown Anaphylaxis Verified 09/07/22 12:23 prochlorperazine Allergy Unknown INVOLUNTARY Verified 09/07/22 12:23 [From COMPAZINE] SPASMS Active Medications: Current Medications Metronidazole (Flagyl) 500 mg in 100 mls @ 100 mls/hr IV ONCE ONE Stop: 09/07/22 16:17 Last Admin: 09/07/22 15:29 Dose: 100 mls/hr Doxycycline Hyclate 100 mg/ (Sodium Chloride) 250 mls @ 166.67 mls/hr IV ONCE ONE Stop: 09/07/22 16:47 Pharmacy Consult (Consult Rx Perform Med Rec) 1 each MISCELLANE ONCE PRN PRN Reason: Consult order Home Medications Medication Instructions Recorded Confirmed Last Taken Type aspirin 81 mg tablet,delayed 81 mg PO DAILY 08/28/22 09/07/22 09/07/22 History release levothyroxine 112 mcg tablet 112 mcg PO DAILY@0600 09/07/22 09/07/22 09/07/22 History Physical Exam Vital Signs: Vital Signs: Last Vital Signs Temp 98.6 F 09/07/22 14:54 Pulse 84 09/07/22 14:54 Resp 18 09/07/22 14:54 BP 156/98 H 09/07/22 14:54 Pulse Ox 99 09/07/22 14:54 O2 Del Method Room Air 09/07/22 14:54 BMI result Body Mass Index 20.0 Const: General: comfortable and no acute distress Orientation/consciousness: patient oriented x3 Neck: Neck: Yes no lymphadenopathy Resp: Auscultation: clear to auscultation bilaterally Cardio: Rhythm: regular rhythm GI: Inspection: No distended Palpation (GI): Soft to palpation, Tenderness to palpation present (GI) (On the suprapubic, pelvic area) and no guarding Neuro: General: patient oriented x3 Results Labs 09/07/22 12:53 09/07/22 12:53 Labs: Abnormal lab results 09/07/22 09/07/22 09/07/22 Range/Units 12:53 12:53 13:14 MPV 9.1 L (9.4-12.3) fL BUN 7 L (9-16) mg/dL Urine Protein 30 (1+) H (Neg-Trace) mg/dL Urine Blood Large (3+) H (Negative) Ur Leukocyte Esterase Large (3+) H (Negative) Urine RBC 11-20 H (0-2) /HPF Urine WBC >50 H (0-5) /HPF Short CBC 09/07/22 Range/Units 12:53 WBC 8.6 (4.8-10.8) X10*3/uL Hgb 14.4 (12.0-16.0) g/dl Hct 41.9 (37.0-47.0) % Plt Count 302 (160-400) X10*3/uL BMP 09/07/22 12:53 Sodium 140 Potassium 4.2 Chloride 102 Carbon Dioxide 29 BUN 7 L Creatinine 0.76 Calcium 9.9 Liver Function 09/07/22 Range/Units 12:53 Total Bilirubin 0.4 (0.0-1.0) mg/dL AST 14 (5-31) U/L ALT 17 (0-31) U/L Alkaline Phosphatase 66 (39-117) U/L Albumin 4.4 (3.5-5.0) g/dL Urine 09/07/22 Range/Units 13:14 Urine Color Yellow Urine Appearance Cloudy Urine pH 6.5 (5.0-9.0) Ur Specific [place] <= 1.005 (1.005-1.025) Urine Protein 30 (1+) H (Neg-Trace) mg/dL Urine Glucose (UA) Negative (Negative) mg/dL All other labs normal. Laboratory Results WBC 8.6 X10*3/uL (4.8-10.8) 09/07/22 12:53 RBC 4.77 X10*6/uL (4.20-5.50) 09/07/22 12:53 Hgb 14.4 g/dl (12.0-16.0) 09/07/22 12:53 Hct 41.9 % (37.0-47.0) 09/07/22 12:53 MCV 87.8 fL (80.0-98.0) 09/07/22 12:53 MCH 30.2 pg (27.0-33.0) 09/07/22 12:53 MCHC 34.4 g/dl (31.0-35.0) 09/07/22 12:53 RDW 12.1 % (11.0-16.0) 09/07/22 12:53 Plt Count 302 X10*3/uL (160-400) 09/07/22 12:53 MPV 9.1 fL (9.4-12.3) L 09/07/22 12:53 Immature Gran % (Auto) 0.3 % (0.0-0.4) 09/07/22 12:53 Neut % (Auto) 70.9 % (45-73) 09/07/22 12:53 Lymph % (Auto) 20.4 % (20-40) 09/07/22 12:53 [place] % (Auto) 7.4 % (2-11) 09/07/22 12:53 Eos % (Auto) 0.8 % (0-4) 09/07/22 12:53 Baso % (Auto) 0.2 % (0-2) 09/07/22 12:53 Lymph # (Auto) 1.8 X10*3/uL (1.2-4.9) 09/07/22 12:53 [place] # (Auto) 0.6 X10*3/uL (0.1-1.2) 09/07/22 12:53 Eos # (Auto) 0.1 X10*3/uL (0.0-0.4) 09/07/22 12:53 Baso # (Auto) 0.0 X10*3/uL (0.0-0.2) 09/07/22 12:53 Abs Immat Gran (auto) 0.03 X10*3/uL (0.00-0.03) 09/07/22 12:53 Absolute Neuts (auto) 6.1 x10*3/uL (2.0-8.3) 09/07/22 12:53 Absolute Nucleated RBC 0.000 X10*3/uL (0.0-0.012) 09/07/22 12:53 Nucleated RBC % (auto) 0.0 /100WBC (0.0-0.2) 09/07/22 12:53 Sodium 140 mmol/L (135-145) 09/07/22 12:53 Potassium 4.2 mmol/L (3.3-5.1) 09/07/22 12:53 Chloride 102 mmol/L (96-108) 09/07/22 12:53 Carbon Dioxide 29 mmol/L (22-29) 09/07/22 12:53 Anion Gap 13 (12-20) 09/07/22 12:53 BUN 7 mg/dL (9-16) L 09/07/22 12:53 Creatinine 0.76 mg/dL (0.5-1.4) 09/07/22 12:53 Estim Creat Clear Calc 73.5 09/07/22 12:53 Estimated GFR > 60 09/07/22 12:53 Random Glucose 100 mg/dL (60-115) 09/07/22 12:53 Lactic Acid 1.1 mmol/L (0.5-2.0) 09/07/22 12:53 Calcium 9.9 mg/dL (8.4-10.2) 09/07/22 12:53 Magnesium 1.9 mg/dL (1.6-2.6) 09/07/22 12:53 Total Bilirubin 0.4 mg/dL (0.0-1.0) 09/07/22 12:53 AST 14 U/L (5-31) 09/07/22 12:53 ALT 17 U/L (0-31) 09/07/22 12:53 Alkaline Phosphatase 66 U/L (39-117) 09/07/22 12:53 Total Protein 7.3 g/dL (6.5-8.0) 09/07/22 12:53 Albumin 4.4 g/dL (3.5-5.0) 09/07/22 12:53 Urine Color Yellow 09/07/22 13:14 Urine Appearance Cloudy 09/07/22 13:14 Urine pH 6.5 (5.0-9.0) 09/07/22 13:14 Ur Specific [place] <= 1.005 (1.005-1.025) 09/07/22 13:14 Urine Protein 30 (1+) mg/dL (Neg-Trace) H 09/07/22 13:14 Urine Glucose (UA) Negative mg/dL (Negative) 09/07/22 13:14 Urine Ketones Negative mg/dL (Negative) 09/07/22 13:14 Urine Blood Large (3+) (Negative) H 09/07/22 13:14 Urine Nitrite Negative (Negative) 09/07/22 13:14 Ur Leukocyte Esterase Large (3+) (Negative) H 09/07/22 13:14 Urine RBC 11-20 /HPF (0-2) H 09/07/22 13:14 Urine WBC >50 /HPF (0-5) H 09/07/22 13:14 Ur Squamous Epith Cells 0-2 /HPF (0-2) 09/07/22 13:14 Urine Bacteria 1+ (None Seen) 09/07/22 13:14 Hyaline Casts 0-2 /LPF (0-2) 09/07/22 13:14 Chlam trachomat DNA PCR NOT DETECTED (Not Detect.) 09/07/22 13:14 COVID-19 ([facility]) Negative (Negative) 09/07/22 15:27 COVID-19 Clin Com See Note 09/07/22 15:27 N.gonorrhoeae DNA (PCR) NOT DETECTED (Not Detect.) 09/07/22 13:14 Impressions Abdomen X-Ray 09/07/22 13:04 IMPRESSION: 1. Nonobstructive bowel gas pattern. 2. Suspect hepatomegaly. Pelvis CT 09/07/22 14:07 IMPRESSION: 1. The cervix is engorged, heterogeneous and hyperemic with very mild pericervical fat stranding. These findings are nonspecific and could be related with reactive postprocedural changes versus infectious/inflammatory cervicitis. Underlying malignancy is not excluded and correlation with history is recommended. A short-term follow-up is recommended to reassess. 2. No evidence of drainable collection or abscess. 3. Fluid-filled and slightly distended small bowel, nonspecific could be associated with ileus or gastroenteritis. 4. Colonic diverticulosis without significant pericolonic inflammatory changes within the [id number]. This result was discussed with Fatou Mcqueen at 09/07/2022 3:23 PM and it was ascertained that the content and urgency of the report was understood at the time of direct communication. Assessment and Plan (1) Pelvic pain: Status: Acute She is here in the ER presenting with pelvic pain and fever. She had a LEEP procedure 6 days ago. I have her CAT scan. This shows inflammatory changes surrounding the cervix likely consistent with postprocedure reaction and concomitant infection/inflammation. There is mention of some small bowel dilatation. However she is not presenting when the symptoms of small-bowel obstruction. This is likely secondary to ileus of surrounding small bowel in the pelvis due to the ongoing inflammation. She she can diet as tolerated. The rest of her management will be as per the gynecology service. I understand the plan is for her to be admitted overnight with IV antibiotics. She otherwise has a benign exam. I will follow along while she is admitted. Time Spent With Patient Time: Total time managing care of this patient today ____ minutes. Procedures Date of Service Date of Service: 09/07/22
--- NOTE | 2022-09-07 15:59 | PHA.MEDREC ---
Pharmacy Consult ? Medication Reconciliation Pharmacy has completed the medication reconciliation.
[2022-09-07] MEDS: Doxycycline Hyclate 100 MG in 0.9 % Sodium Chloride 250 ML 166.67 MG IV (16:38)
--- NOTE | 2022-09-07 16:40 | PC.NURSE ---
METRONIDIZOLE INFUSED PER ORDER, DOXYCYCLINE 100 CURRENTLY INFUSING, CALL [facility] WITHIN REACH
--- NOTE | 2022-09-07 17:44 | PM.IMHP ---
History of Present Illness Date of Service: 09/07/22 Attending physician on admission: Babs Green Chief Complaint: fever/lower abdominal pain 52-year-old female with past medical history of hypertension, remote was hypothyroidism, history of cervical cancer status post cervical LEEP, top hat excision procedure done [address] Montemayor , 2 days ago patient developed fever associated with nausea and since last night developed lower abdominal pain, with no associated cervical discharge, no bleeding denies urinary burning, no dysuria but noted increased urinary frequency without increased fluid intake, she denies diarrhea, no lightheadedness or dizziness, abdominal x-ray showed non obstructive bowel gas pattern, suspect hepatomegaly, pelvic CT scan, showed ankle arched cervix heterogeneous and hyperemic with very mild cecilia cervical fat stranding, could be related to reactive postprocedural changes versus infectious/ inflammatory cervicitis, no drainable abscess noted small bowel was slightly distended, patient had normal CBC, stable renal function and electrolytes, vitals stable with a low-grade temp of 99.7 degrees patient evaluated in ED bed Dr. Montemayor, he recommended admission for IV antibiotics to cover PID, patient being admitted to medical service for antibiotic treatment and close monitoring. Review of Systems Review of Systems: General no headache, no dizziness no fever chills. CVS no chest pain, no palpitation. Respiratory no cough, no sob. Gastrointestinal nausea, no vomiting, no Diarrhea musculoskeletal no joint pains skin no rash Yes all other systems are reviewed and are negative [facility] Medical History COPD (chronic obstructive pulmonary disease) Dysphagia Elevated cholesterol Family history of colon cancer Family history of pancreatic cancer Fever of unknown origin History of cervical cancer HTN (hypertension) Hypothyroidism (~1999) Near syncope Nicotine dependence, cigarettes, uncomplicated Pelvic pain Unintentional weight loss Vitamin D deficiency Family History Mother Alzheimer's dementia CVD (cardiovascular disease) Maternal Grandfather Pancreatic cancer Surgical History History of History of endometrial ablation History of throat surgery (~2011) History of tonsillectomy (~1976) Social History Household Members Other:: lives at home with 20-year-old daughter Housing: Apartment Alcohol intake: never Patient Tobacco Use Status: Current everyday Tobacco user Tobacco use type: Cigarette Cigarette Packs Per Day: 0.5 Cigarettes Per Day: 10 Years Smoked: (onset 11, 1ppd x 40yrs, now 1/4ppd, 40pyh) Smoked in Last 30 Days: Yes e-Cigarette/Vaping Use: Never Used Second Hand Smoke Exposure: Yes Use of substances other than those prescribed or required for medical reasons: Yes Substance Use Type: Marijuana Advance Directives: No service: No Current occupational status: disabled Cognitive needs: No Hearing needs: No Vision needs: No Meds Allergies Allergy/AdvReac Type Severity Reaction Status Date / Time amoxicillin [From AUGMENTIN] Allergy Severe Anaphylaxis Verified 09/07/22 12:23 clavulanic acid Allergy Severe Anaphylaxis Verified 09/07/22 12:23 [From AUGMENTIN] ketorolac [From Toradol] Allergy Unknown Anaphylaxis Verified 09/07/22 12:23 prochlorperazine Allergy Unknown INVOLUNTARY Verified 09/07/22 12:23 [From COMPAZINE] SPASMS Active Medications: Current Medications Acetaminophen (Acetaminophen 325 Mg Tablet) 650 mg PO Q6H PRN PRN Reason: Pain, Mild (Pain Scale 1-3) Aspirin (Aspirin Enteric Coated 81 Mg Tablet.) 81 mg PO DAILY [facility] Enoxaparin Sodium (Enoxaparin Sodium 40 Mg/0.4 Ml Syringe) 40 mg SUBCUT Q24H [facility] Levothyroxine Sodium (Levothyroxine Sodium 112 Mcg Tablet) 112 mcg PO DAILY@0600 [facility] Lisinopril (Lisinopril 10 Mg Tablet) 10 mg PO DAILY [facility]; Protocol Melatonin (Melatonin 3 Mg Tablet) 3 mg PO BEDTIME PRN PRN Reason: Insomnia Ondansetron HCl (Ondansetron Hcl 4 Mg/2 Ml Vial) 4 mg IVPUSH Q8H PRN PRN Reason: Nausea and Vomiting Pharmacy Consult (Consult Rx Perform Med Rec) 1 each MISCELLANE ONCE PRN PRN Reason: Consult order Sodium Chloride (0.9 % Sodium Chloride Flush 3 Ml Syringe) 3 ml IVFLUSH QSHIFT [facility] Home Medications Medication Instructions Recorded Confirmed Last Taken Type aspirin 81 mg tablet,delayed 81 mg PO DAILY 08/28/22 09/07/22 09/07/22 History release levothyroxine 112 mcg tablet 112 mcg PO DAILY@0600 09/07/22 09/07/22 09/07/22 History Physical Exam Vital Signs and Narrative: Vital Signs: Last Vital Signs Temp 98.6 F 09/07/22 14:54 Pulse 84 09/07/22 14:54 Resp 18 09/07/22 14:54 BP 156/98 H 09/07/22 14:54 Pulse Ox 99 09/07/22 14:54 O2 Del Method Room Air 09/07/22 14:54 BMI result Body Mass Index 20.0 Const: Other: General awake alert x3,resting comfortably in no acute distress. HEENT: PERRLA,EOMI Neck supple no JVD. CVS regular rate rhythm, Respiratory lungs clear to auscultation, no respiratory distress, no wheeze, no rhonchi. Gastrointestinal abdomen soft, suprapubic tenderness to palpation, bowel sounds audible, no guarding , no rigidity. Extremities no edema. Neuro non focal . Skin no rash Psych appropriate affect. Results Labs 09/07/22 12:53 09/07/22 12:53 Labs: Laboratory Results - last 24 hr 09/07/22 09/07/22 09/07/22 12:53 12:53 12:53 MCV 87.8 MCH 30.2 MCHC 34.4 RDW 12.1 Plt Count 302 MPV 9.1 L Immature Gran % (Auto) 0.3 Neut % (Auto) 70.9 Lymph % (Auto) 20.4 [place] % (Auto) 7.4 Eos % (Auto) 0.8 Baso % (Auto) 0.2 Lymph # (Auto) 1.8 [place] # (Auto) 0.6 Eos # (Auto) 0.1 Baso # (Auto) 0.0 Abs Immat Gran (auto) 0.03 Absolute Neuts (auto) 6.1 Absolute Nucleated RBC 0.000 Nucleated RBC % (auto) 0.0 Anion Gap 13 Estim Creat Clear Calc 73.5 Estimated GFR > 60 Random Glucose 100 Lactic Acid 1.1 Calcium 9.9 Magnesium 1.9 Total Bilirubin 0.4 AST 14 ALT 17 Alkaline Phosphatase 66 Total Protein 7.3 Albumin 4.4 Urine Color Urine Appearance Urine pH Ur Specific [place] Urine Protein Urine Glucose (UA) Urine Ketones Urine Blood Urine Nitrite Ur Leukocyte Esterase Urine RBC Urine WBC Ur Squamous Epith Cells Urine Bacteria Hyaline Casts Chlam trachomat DNA PCR COVID-19 ([facility]) COVID-19 Clin Com N.gonorrhoeae DNA (PCR) 09/07/22 09/07/22 09/07/22 13:14 13:14 15:27 MCV MCH MCHC RDW Plt Count MPV Immature Gran % (Auto) Neut % (Auto) Lymph % (Auto) [place] % (Auto) Eos % (Auto) Baso % (Auto) Lymph # (Auto) [place] # (Auto) Eos # (Auto) Baso # (Auto) Abs Immat Gran (auto) Absolute Neuts (auto) Absolute Nucleated RBC Nucleated RBC % (auto) Anion Gap Estim Creat Clear Calc Estimated GFR Random Glucose Lactic Acid Calcium Magnesium Total Bilirubin AST ALT Alkaline Phosphatase Total Protein Albumin Urine Color Yellow Urine Appearance Cloudy Urine pH 6.5 Ur Specific [place] <= 1.005 Urine Protein 30 (1+) H Urine Glucose (UA) Negative Urine Ketones Negative Urine Blood Large (3+) H Urine Nitrite Negative Ur Leukocyte Esterase Large (3+) H Urine RBC 11-20 H Urine WBC >50 H Ur Squamous Epith Cells 0-2 Urine Bacteria 1+ Hyaline Casts 0-2 Chlam trachomat DNA PCR NOT DETECTED COVID-19 ([facility]) Negative COVID-19 Clin Com See Note N.gonorrhoeae DNA (PCR) NOT DETECTED Imaging Radiologist's Impressions: Impressions Abdomen X-Ray 09/07/22 13:04 IMPRESSION: 1. Nonobstructive bowel gas pattern. 2. Suspect hepatomegaly. Pelvis CT 09/07/22 14:07 IMPRESSION: 1. The cervix is engorged, heterogeneous and hyperemic with very mild pericervical fat stranding. These findings are nonspecific and could be related with reactive postprocedural changes versus infectious/inflammatory cervicitis. Underlying malignancy is not excluded and correlation with history is recommended. A short-term follow-up is recommended to reassess. 2. No evidence of drainable collection or abscess. 3. Fluid-filled and slightly distended small bowel, nonspecific could be associated with ileus or gastroenteritis. 4. Colonic diverticulosis without significant pericolonic inflammatory changes within the [id number]. This result was discussed with Fatou Mcqueen at 09/07/2022 3:23 PM and it was ascertained that the content and urgency of the report was understood at the time of direct communication. Assessment and Plan (1) Pelvic inflammatory disease (PID): Status: Acute Plan 52 year old female past medical history of hypertension, hypothyroidism,, postop day 6 from cervical LEEP, top-hat excision, post cone ECC for VERONIKA 2-3 presented emergency room with a 2 day history of fever, lower abdominal discomfort associated with urinary frequency, no dysuria or urgency, no vaginal bleeding, no nausea or vomiting, no constipation or diarrhea no shortness of breath or chest pain, CT pelvis showed finding consistent with infectious/ inflammatory cervicitis or reactive postprocedural changes. Patient will be admitted to [facility] for IV antibiotic pelvic inflammatory disease place on doxycycline 100 mg b.i.d., Flagyl 500 mg b.i.d. and IV ceftriaxone 1 g Q 24 hours, follow blood cultures x2. no Trichomonas or yeast, chlamydia and gonorrhea not detected, gardnerella and Trichomonas DNA pending. IV morphine/oxycodone for pain control appreciate OBGYN input, follow clinical course UTI urinalysis positive for large leukocyte Estrace greater than 50,000 WBC and bacteria follow urine culture continue IV ceftriaxone hypothyroidism continue levothyroxine hypertension elevated blood pressure resume lisinopril home dose code status full code DVT prophylaxis Lovenox subQ in my clinical judgment patient need to night inpatient stay for IV antibiotics for pelvic infection. Time Spent With Patient Time: Total time managing care of this patient today ____ minutes. Quality Stroke Does the patient have a stroke diagnosis?: No VTE Prior VTE?: No VTE Risk Level:: Medical - moderate - high VTE Device Contraindication: Treatment Not Indicated VTE Drug Contraindication: N/A - Med Ordered
--- NOTE | 2022-09-07 18:23 | PC.NURSE ---
report given to YESSICA Dhillont
[2022-09-07 18:55] VITALS: BP 142/86; PULSE 60; RESP 20; TEMP 36.1; O2SAT 100
[2022-09-07 19:18] VITALS: BP 146/84; PULSE 60; RESP 16; TEMP 36.3; O2SAT 99
[2022-09-07 19:19] VITALS: BMI 21.1
[2022-09-07] MEDS: Enoxaparin Sodium 40 MG/0.4 ML SYRINGE SUBCUT (19:37)
[2022-09-07] MEDS: 0.9 % Sodium Chloride Flush 3 ML SYRINGE IVFLUSH (19:38)
[2022-09-07] MEDS: Morphine Sulfate 4 MG/ML CARTRIDGE 3 MG IVPUSH (19:38)
[2022-09-08] MEDS: metroNIDAZOLE/NS 500 MG/100 ML PIGGYBACK 100 MG IV ×2 (03:33→16:04)
[2022-09-08 03:51] VITALS: BP 137/85; PULSE 63; RESP 16; TEMP 36.8; O2SAT 97
[2022-09-08] MEDS: Doxycycline Hyclate 100 MG in 0.9 % Sodium Chloride 250 ML 166.67 MG IV ×2 (04:34→17:11)
[2022-09-08] MEDS: Morphine Sulfate 4 MG/ML CARTRIDGE 3 MG IVPUSH ×3 (05:10→17:08)
[2022-09-08] MEDS: Levothyroxine Sodium 112 MCG TABLET PO (05:11)
--- NOTE | 2022-09-08 07:24 | P.PNGS_ITS ---
Subjective Subjective Date of Service: 09/08/22 Interval history: Says she had a good night Suprapubic pain still present but better Urinary frequency much improved Overall, she feels much better compared to yesterday Physical Exam Vital Signs: Vital Signs: Last Vital Signs Temp 98.2 F 09/08/22 03:51 Pulse 63 09/08/22 03:51 Resp 16 09/08/22 03:51 BP 137/85 09/08/22 03:51 Pulse Ox 97 09/08/22 03:51 O2 Del Method Room Air 09/08/22 03:51 BMI result Body Mass Index 21.1 Const: General: comfortable and no acute distress Resp: Effort & Inspection: normal respiratory effort Cardio: Rate: regular rate GI: Other: Tender in the suprapubic area Palpation (GI): Soft to palpation, not firm and no guarding Objective Data Active Medications Acetaminophen (Acetaminophen 325 Mg Tablet) 650 mg PO Q6H PRN PRN Reason: Pain, Mild (Pain Scale 1-3) Aspirin (Aspirin Enteric Coated 81 Mg Tablet.) 81 mg PO DAILY [facility] Enoxaparin Sodium (Enoxaparin Sodium 40 Mg/0.4 Ml Syringe) 40 mg SUBCUT Q24H [facility] Last Admin: 09/07/22 19:37 Dose: 40 mg Documented By: YANETH Ceftriaxone Sodium 1 gm/ (Sodium Chloride) 50 mls @ 100 mls/hr IV Q24H [facility] Doxycycline Hyclate 100 mg/ (Sodium Chloride) 250 mls @ 166.67 mls/hr IV Q12H [facility] Last Infusion: 09/08/22 06:11 Dose: 0 mls/hr Documented By: YANETH Metronidazole (Flagyl) 500 mg in 100 mls @ 100 mls/hr IV Q12H [facility] Last Infusion: 09/08/22 04:34 Dose: 0 mls/hr Documented By: YANETH Levothyroxine Sodium (Levothyroxine Sodium 112 Mcg Tablet) 112 mcg PO DAILY@0600 [facility] Last Admin: 09/08/22 05:11 Dose: 112 mcg Documented By: FARHANILIhsan Lisinopril (Lisinopril 10 Mg Tablet) 10 mg PO DAILY [facility]; Protocol Melatonin (Melatonin 3 Mg Tablet) 3 mg PO BEDTIME PRN PRN Reason: Insomnia Morphine Sulfate (Morphine Sulfate 4 Mg/Ml Cartridge) 3 mg IVPUSH Q4H PRN; Protocol PRN Reason: Pain, Severe (Pain Scale 7-10) Last Admin: 09/08/22 05:10 Dose: 3 mg Documented By: YANETH Ondansetron HCl (Ondansetron Hcl 4 Mg/2 Ml Vial) 4 mg IVPUSH Q8H PRN PRN Reason: Nausea and Vomiting Oxycodone HCl (Oxycodone Hcl Immed Release 5 Mg Tablet) 5 mg PO Q6H PRN PRN Reason: Pain, Moderate(Pain Scale 4-6) Pharmacy Consult (Consult Rx Perform Med Rec) 1 each MISCELLANE ONCE PRN PRN Reason: Consult order Sodium Chloride (0.9 % Sodium Chloride Flush 3 Ml Syringe) 3 ml IVFLUSH [facility] Last Admin: 09/07/22 19:38 Dose: 3 ml Documented By: YANETH Labs 09/07/22 12:53 09/07/22 12:53 Labs: Laboratory Results - last 24 hr 09/07/22 09/07/22 09/07/22 12:53 12:53 12:53 MCV 87.8 MCH 30.2 MCHC 34.4 RDW 12.1 Plt Count 302 MPV 9.1 L Immature Gran % (Auto) 0.3 Neut % (Auto) 70.9 Lymph % (Auto) 20.4 [place] % (Auto) 7.4 Eos % (Auto) 0.8 Baso % (Auto) 0.2 Lymph # (Auto) 1.8 [place] # (Auto) 0.6 Eos # (Auto) 0.1 Baso # (Auto) 0.0 Abs Immat Gran (auto) 0.03 Absolute Neuts (auto) 6.1 Absolute Nucleated RBC 0.000 Nucleated RBC % (auto) 0.0 Anion Gap 13 Estim Creat Clear Calc 73.5 Estimated GFR > 60 Random Glucose 100 Lactic Acid 1.1 Calcium 9.9 Magnesium 1.9 Total Bilirubin 0.4 AST 14 ALT 17 Alkaline Phosphatase 66 Total Protein 7.3 Albumin 4.4 Urine Color Urine Appearance Urine pH Ur Specific [place] Urine Protein Urine Glucose (UA) Urine Ketones Urine Blood Urine Nitrite Ur Leukocyte Esterase Urine RBC Urine WBC Ur Squamous Epith Cells Urine Bacteria Hyaline Casts Chlam trachomat DNA PCR COVID-19 ([facility]) COVID-19 Clin Com N.gonorrhoeae DNA (PCR) 09/07/22 09/07/22 09/07/22 13:14 13:14 15:27 MCV MCH MCHC RDW Plt Count MPV Immature Gran % (Auto) Neut % (Auto) Lymph % (Auto) [place] % (Auto) Eos % (Auto) Baso % (Auto) Lymph # (Auto) [place] # (Auto) Eos # (Auto) Baso # (Auto) Abs Immat Gran (auto) Absolute Neuts (auto) Absolute Nucleated RBC Nucleated RBC % (auto) Anion Gap Estim Creat Clear Calc Estimated GFR Random Glucose Lactic Acid Calcium Magnesium Total Bilirubin AST ALT Alkaline Phosphatase Total Protein Albumin Urine Color Yellow Urine Appearance Cloudy Urine pH 6.5 Ur Specific [place] <= 1.005 Urine Protein 30 (1+) H Urine Glucose (UA) Negative Urine Ketones Negative Urine Blood Large (3+) H Urine Nitrite Negative Ur Leukocyte Esterase Large (3+) H Urine RBC 11-20 H Urine WBC >50 H Ur Squamous Epith Cells 0-2 Urine Bacteria 1+ Hyaline Casts 0-2 Chlam trachomat DNA PCR NOT DETECTED COVID-19 ([facility]) Negative COVID-19 Clin Com See Note N.gonorrhoeae DNA (PCR) NOT DETECTED Microbiology Microbiology Results: Microbiology 09/07/22 13:17 Trichomonas Preparation - Final Vaginal Procedures Date of Service Date of Service: 09/08/22 Progress Note: A&P Assessment and plan (1) Pelvic pain: Status: Acute Assessment and Plan: Much improved Diet as tolerated Management as per gyne service Re-consult as necessary Time Spent With Patient Time: Total time managing care of this patient today ____ minutes. Quality Stroke Does the patient have a stroke diagnosis?: No VTE Prior VTE?: No VTE Risk Level:: Medical - moderate - high VTE Device Contraindication: Treatment Not Indicated VTE Drug Contraindication: N/A - Med Ordered
[2022-09-08 07:34] VITALS: BP 159/90; PULSE 50; RESP 18; TEMP 36.7; O2SAT 99
[2022-09-08] MEDS: Aspirin Enteric Coated 81 MG TABLET.DR PO (08:17)
[2022-09-08] MEDS: lisinopriL 10 MG TABLET PO (08:17)
[2022-09-08] MEDS: 0.9 % Sodium Chloride Flush 3 ML SYRINGE IVFLUSH ×2 (09:32→16:04)
[2022-09-08 11:19] LABS: BV Int Neg Control Negative (Negative); BV Int Pos Control Positive (Positive)
--- NOTE | 2022-09-08 12:28 | P.PNIM_ITS ---
Subjective Subjective Date of Service: 09/08/22 Interval History: fever, pelvic pain, and nausea have largely resolved Review of Systems Review of Systems: Yes all other systems are reviewed and are negative Physical Exam Vital Signs: Vital Signs: Last Vital Signs Temp 98.0 F 09/08/22 07:34 Pulse 50 09/08/22 07:34 Resp 18 09/08/22 07:34 BP 159/90 H 09/08/22 07:34 Pulse Ox 99 09/08/22 07:34 O2 Del Method Room Air 09/08/22 07:34 BMI result Body Mass Index 21.1 Gen: in no acute distress HEENT: sclera anicteric, moist mucus membranes Neck: supple Lungs: clear to auscultation bilaterally Heart: regular rate and rhythm, no murmurs Abd: soft, non-distended, suprapubic tenderness Ext: no edema Skin: warm/well-perfused Neuro: alert and oriented x3, no focal findings Psych: appropriate affect Objective Data Active Medications Acetaminophen (Acetaminophen 325 Mg Tablet) 650 mg PO Q6H PRN PRN Reason: Pain, Mild (Pain Scale 1-3) Aspirin (Aspirin Enteric Coated 81 Mg Tablet.) 81 mg PO DAILY [facility] Last Admin: 09/08/22 08:17 Dose: 81 mg Documented By: PRABHJOT Enoxaparin Sodium (Enoxaparin Sodium 40 Mg/0.4 Ml Syringe) 40 mg SUBCUT Q24H [facility] Last Admin: 09/07/22 19:37 Dose: 40 mg Documented By: YANETH Ceftriaxone Sodium 1 gm/ (Sodium Chloride) 50 mls @ 100 mls/hr IV Q24H [facility] Doxycycline Hyclate 100 mg/ (Sodium Chloride) 250 mls @ 166.67 mls/hr IV Q12H [facility] Last Infusion: 09/08/22 06:11 Dose: 0 mls/hr Documented By: YANETH Metronidazole (Flagyl) 500 mg in 100 mls @ 100 mls/hr IV Q12H [facility] Last Infusion: 09/08/22 04:34 Dose: 0 mls/hr Documented By: YANETH Levothyroxine Sodium (Levothyroxine Sodium 112 Mcg Tablet) 112 mcg PO DAILY@0600 [facility] Last Admin: 09/08/22 05:11 Dose: 112 mcg Documented By: HO.CASTILM Lisinopril (Lisinopril 10 Mg Tablet) 10 mg PO DAILY [facility]; Protocol Last Admin: 09/08/22 08:17 Dose: 10 mg Documented By: PRABHJOT Melatonin (Melatonin 3 Mg Tablet) 3 mg PO BEDTIME PRN PRN Reason: Insomnia Morphine Sulfate (Morphine Sulfate 4 Mg/Ml Cartridge) 3 mg IVPUSH Q4H PRN; Protocol PRN Reason: Pain, Severe (Pain Scale 7-10) Last Admin: 09/08/22 09:33 Dose: 3 mg Documented By: PRABHJOT Ondansetron HCl (Ondansetron Hcl 4 Mg/2 Ml Vial) 4 mg IVPUSH Q8H PRN PRN Reason: Nausea and Vomiting Oxycodone HCl (Oxycodone Hcl Immed Release 5 Mg Tablet) 5 mg PO Q6H PRN PRN Reason: Pain, Moderate(Pain Scale 4-6) Pharmacy Consult (Consult Rx Perform Med Rec) 1 each MISCELLANE ONCE PRN PRN Reason: Consult order Sodium Chloride (0.9 % Sodium Chloride Flush 3 Ml Syringe) [facility] Last Admin: 09/08/22 09:32 Dose: 3 ml Documented By: PRABHJOT Labs 09/07/22 12:53 09/07/22 12:53 Labs: Laboratory Results - last 24 hr 09/07/22 09/07/22 09/07/22 12:53 12:53 12:53 MCV 87.8 MCH 30.2 MCHC 34.4 RDW 12.1 Plt Count 302 MPV 9.1 L Immature Gran % (Auto) 0.3 Neut % (Auto) 70.9 Lymph % (Auto) 20.4 [place] % (Auto) 7.4 Eos % (Auto) 0.8 Baso % (Auto) 0.2 Lymph # (Auto) 1.8 [place] # (Auto) 0.6 Eos # (Auto) 0.1 Baso # (Auto) 0.0 Abs Immat Gran (auto) 0.03 Absolute Neuts (auto) 6.1 Absolute Nucleated RBC 0.000 Nucleated RBC % (auto) 0.0 Anion Gap 13 Estim Creat Clear Calc 73.5 Estimated GFR > 60 Random Glucose 100 Lactic Acid 1.1 Calcium 9.9 Magnesium 1.9 Total Bilirubin 0.4 AST 14 ALT 17 Alkaline Phosphatase 66 Total Protein 7.3 Albumin 4.4 Urine Color Urine Appearance Urine pH Ur Specific [place] Urine Protein Urine Glucose (UA) Urine Ketones Urine Blood Urine Nitrite Ur Leukocyte Esterase Urine RBC Urine WBC Ur Squamous Epith Cells Urine Bacteria Hyaline Casts Emily species DNA Chlam trachomat DNA PCR COVID-19 ([facility]) COVID-19 Clin Com Gardnerella DNA Probe N.gonorrhoeae DNA (PCR) Trichomonas DNA Probe 09/07/22 09/07/22 09/07/22 13:14 13:14 13:14 MCV MCH MCHC RDW Plt Count MPV Immature Gran % (Auto) Neut % (Auto) Lymph % (Auto) [place] % (Auto) Eos % (Auto) Baso % (Auto) Lymph # (Auto) [place] # (Auto) Eos # (Auto) Baso # (Auto) Abs Immat Gran (auto) Absolute Neuts (auto) Absolute Nucleated RBC Nucleated RBC % (auto) Anion Gap Estim Creat Clear Calc Estimated GFR Random Glucose Lactic Acid Calcium Magnesium Total Bilirubin AST ALT Alkaline Phosphatase Total Protein Albumin Urine Color Yellow Urine Appearance Cloudy Urine pH 6.5 Ur Specific [place] <= 1.005 Urine Protein 30 (1+) H Urine Glucose (UA) Negative Urine Ketones Negative Urine Blood Large (3+) H Urine Nitrite Negative Ur Leukocyte Esterase Large (3+) H Urine RBC 11-20 H Urine WBC >50 H Ur Squamous Epith Cells 0-2 Urine Bacteria 1+ Hyaline Casts 0-2 Emily species DNA Negative Chlam trachomat DNA PCR NOT DETECTED COVID-19 ([facility]) COVID-19 Clin Com Gardnerella DNA Probe Negative N.gonorrhoeae DNA (PCR) NOT DETECTED Trichomonas DNA Probe Negative 09/07/22 15:27 MCV MCH MCHC RDW Plt Count MPV Immature Gran % (Auto) Neut % (Auto) Lymph % (Auto) [place] % (Auto) Eos % (Auto) Baso % (Auto) Lymph # (Auto) [place] # (Auto) Eos # (Auto) Baso # (Auto) Abs Immat Gran (auto) Absolute Neuts (auto) Absolute Nucleated RBC Nucleated RBC % (auto) Anion Gap Estim Creat Clear Calc Estimated GFR Random Glucose Lactic Acid Calcium Magnesium Total Bilirubin AST ALT Alkaline Phosphatase Total Protein Albumin Urine Color Urine Appearance Urine pH Ur Specific [place] Urine Protein Urine Glucose (UA) Urine Ketones Urine Blood Urine Nitrite Ur Leukocyte Esterase Urine RBC Urine WBC Ur Squamous Epith Cells Urine Bacteria Hyaline Casts Emily species DNA Chlam trachomat DNA PCR COVID-19 ([facility]) Negative COVID-19 Clin Com See Note Gard[place]rella DNA Probe N.gonorrhoeae DNA (PCR) Trichomonas DNA Probe Microbiology Microbiology Results: Microbiology 09/07/22 13:17 Trichomonas Preparation - Final Vaginal Assessment and Plan (1) Pelvic inflammatory disease (PID): Status: Acute Plan d#2 52yo F with HTN/hypothyroidism presented POD#6 from cervical LEEP/top-hat excision/conization for VERONIKA 2-3 with 2d of fever/suprapubic discomfort/urinary frequency admitted for cervicitis/PID # post-LEEP PID # UTI - d#2 doxy + metronidazole + ceftriaxone - trich/BV/yeast + GC/CT molecular tests negative, follow BCx + UCx - 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 Quality Stroke Does the patient have a stroke diagnosis?: No VTE Prior VTE?: No VTE Risk Level:: Medical - moderate - high VTE Device Contraindication: Treatment Not Indicated VTE Drug Contraindication: N/A - Med Ordered
[2022-09-08] MEDS: cefTRIAXone sodium 1 GM in 0.9 % Sodium Chloride 50 ML IV (13:26)
[2022-09-08 15:37] VITALS: BP 118/79; PULSE 62; RESP 16; TEMP 37.2; O2SAT 98
--- NOTE | 2022-09-08 16:27 | MHC.CM.PN ---
Addendum entered by Traci Garcia 09/09/22 10:28: HCP COMPLETED AND ON FILE Original Note: PT REPORTS SHE LIVES WITH HER 23 YO DAUGHTER WHO IS DISABLED SHE REPORTS SHE IS INDEPENDENT WITH ALL CARE, HAS NO SERVICES AND NO DME SHE WILL COMPLETE A HCP NAMING HER DAUGHTER, HEATHER, HER AGENT LATRICIA GALVAN IS HER PCP SHE IS COVID VAX AND BOOSTED IMM DELIVERED CURRENT DC PLAN IS HOME WITH NO SERVICES VIA PRIVATE TRANSPORT
[2022-09-08 19:29] VITALS: BP 115/76; PULSE 67; RESP 18; TEMP 36.8; O2SAT 97
[2022-09-08] MEDS: Enoxaparin Sodium 40 MG/0.4 ML SYRINGE SUBCUT (20:16)
[2022-09-09] MEDS: 0.9 % Sodium Chloride Flush 3 ML SYRINGE IVFLUSH ×3 (00:23→19:39)
[2022-09-09] MEDS: Morphine Sulfate 4 MG/ML CARTRIDGE 3 MG IVPUSH ×3 (02:57→19:37)
[2022-09-09] MEDS: metroNIDAZOLE/NS 500 MG/100 ML PIGGYBACK 100 MG IV ×2 (03:00→14:54)
[2022-09-09 04:00] VITALS: BP 142/80; PULSE 54; RESP 16; TEMP 36.2; O2SAT 98
[2022-09-09] MEDS: Doxycycline Hyclate 100 MG in 0.9 % Sodium Chloride 250 ML 166.7 MG IV (04:27)
[2022-09-09] MEDS: Levothyroxine Sodium 112 MCG TABLET PO (06:19)
[2022-09-09 06:27] LABS: Hematocrit 37.3 % (37.0-47.0); Hemoglobin 12.4 g/dl (12.0-16.0); Mean Corpuscular HGB Conc 33.2 g/dl (31.0-35.0); Mean Corpuscular Hemoglobin 30.1 pg (27.0-33.0); Mean Corpuscular Volume 90.5 fL (80.0-98.0); Mean Platelet Volume 9.3 fL (9.4-12.3); Platelet Count 257 X10*3/uL (160-400); Red Blood Count 4.12 X10*6/uL (4.20-5.50); Red Cell Distribution Width 12.1 % (11.0-16.0)
[2022-09-09 06:38] LABS: C Reactive Protein 2.25 mg/dL (< or = 0.50)
[2022-09-09 07:13] VITALS: BP 136/96; PULSE 61; RESP 20; TEMP 36.1; O2SAT 98
[2022-09-09] MEDS: lisinopriL 10 MG TABLET PO (08:15)
[2022-09-09] MEDS: Aspirin Enteric Coated 81 MG TABLET.DR PO (08:15)
--- NOTE | 2022-09-09 09:28 | P.PNIM_ITS ---
Subjective Subjective Date of Service: 09/09/22 Interval History: c/o pelvic pain and some nausea no fever walking without any problem Review of Systems Review of Systems: Yes all other systems are reviewed and are negative Physical Exam Vital Signs: Vital Signs: Last Vital Signs Temp 97 F 09/09/22 07:13 Pulse 61 09/09/22 07:13 Resp 20 09/09/22 07:13 BP 136/96 H 09/09/22 07:13 Pulse Ox 98 09/09/22 07:13 O2 Del Method Room Air 09/09/22 07:13 BMI result Body Mass Index 21.1 Gen: in no acute distress HEENT: sclera anicteric, moist mucus membranes Neck: supple Lungs: clear to auscultation bilaterally Heart: regular rate and rhythm, no murmurs Abd: soft, non-distended, suprapubic tenderness Ext: no edema Skin: warm/well-perfused Neuro: alert and oriented x3, no focal findings Psych: appropriate affect Objective Data Active Medications Acetaminophen (Acetaminophen 325 Mg Tablet) 650 mg PO Q6H PRN PRN Reason: Pain, Mild (Pain Scale 1-3) Aspirin (Aspirin Enteric Coated 81 Mg Tablet.) 81 mg PO DAILY [facility] Last Admin: 09/09/22 08:15 Dose: 81 mg Documented By: BUCKY Enoxaparin Sodium (Enoxaparin Sodium 40 Mg/0.4 Ml Syringe) 40 mg SUBCUT Q24H [facility] Last Admin: 09/08/22 20:16 Dose: 40 mg Documented By: EUGENIA Ceftriaxone Sodium 1 gm/ (Sodium Chloride) 50 mls @ 100 mls/hr IV Q24H [facility] Last Infusion: 09/08/22 14:24 Dose: 100 mls/hr Documented By: PRABHJOT Doxycycline Hyclate 100 mg/ (Sodium Chloride) 250 mls @ 166.67 mls/hr IV Q12H [facility] Last Infusion: 09/09/22 06:19 Dose: 0 mls/hr Documented By: CHUCKY Metronidazole (Flagyl) 500 mg in 100 mls @ 100 mls/hr IV Q12H [facility] Last Infusion: 09/09/22 04:19 Dose: 0 mls/hr Documented By: CHUCKY Levothyroxine Sodium (Levothyroxine Sodium 112 Mcg Tablet) 112 mcg PO DAILY@0600 [facility] Last Admin: 09/09/22 06:19 Dose: 112 mcg Documented By: CHUCKY Lisinopril (Lisinopril 10 Mg Tablet) 10 mg PO DAILY [facility]; Protocol Last Admin: 09/09/22 08:15 Dose: 10 mg Documented By: BUCKY Melatonin (Melatonin 3 Mg Tablet) 3 mg PO BEDTIME PRN PRN Reason: Insomnia Morphine Sulfate (Morphine Sulfate 4 Mg/Ml Cartridge) 3 mg IVPUSH Q4H PRN; Protocol PRN Reason: Pain, Severe (Pain Scale 7-10) Last Admin: 09/09/22 02:57 Dose: 3 mg Documented By: CHUCKY Ondansetron HCl (Ondansetron Hcl 4 Mg/2 Ml Vial) 4 mg IVPUSH Q8H PRN PRN Reason: Nausea and Vomiting Oxycodone HCl (Oxycodone Hcl Immed Release 5 Mg Tablet) 5 mg PO Q6H PRN PRN Reason: Pain, Moderate(Pain Scale 4-6) Pharmacy Consult (Consult Rx Perform Med Rec) 1 each MISCELLANE ONCE PRN PRN Reason: Consult order Sodium Chloride (0.9 % Sodium Chloride Flush 3 Ml Syringe) 3 ml IVFLUSH QSHIFT [facility] Last Admin: 09/09/22 08:15 Dose: 3 ml Documented By: BUCKY Labs 09/09/22 05:37 09/07/22 12:53 Labs: Laboratory Results - last 24 hr 09/07/22 09/09/22 09/09/22 13:14 05:37 05:37 MCV 90.5 MCH 30.1 MCHC 33.2 RDW 12.1 Plt Count 257 MPV 9.3 L Absolute Nucleated RBC 0.000 Nucleated RBC % (auto) 0.0 C-Reactive Protein 2.25 H Emily species DNA Negative Gardnerella DNA Probe Negative Trichomonas DNA Probe Negative Microbiology Microbiology Results: Microbiology 09/07/22 00:00 Urine Culture - Final Urine clean catch - Urine garvey top Escherichia coli 09/07/22 12:53 Blood Culture - Preliminary Blood - Venous No growth after 24 hours. 09/07/22 12:53 Blood Culture - Preliminary Blood - Venous No growth after 24 hours. 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 Quality Stroke Does the patient have a stroke diagnosis?: No VTE Prior VTE?: No VTE Risk Level:: Medical - moderate - high VTE Device Contraindication: Treatment Not Indicated VTE Drug Contraindication: N/A - Med Ordered
[2022-09-09] MEDS: cefTRIAXone sodium 1 GM in 0.9 % Sodium Chloride 50 ML IV (13:13)
[2022-09-09 15:30] VITALS: BP 124/69; PULSE 66; RESP 16; TEMP 36.2; O2SAT 99
[2022-09-09] MEDS: Doxycycline Hyclate 100 MG in 0.9 % Sodium Chloride 250 ML 166.67 MG IV (16:51)
[2022-09-09] MEDS: Enoxaparin Sodium 40 MG/0.4 ML SYRINGE SUBCUT (16:59)
[2022-09-09 19:46] VITALS: BP 154/86; PULSE 59; RESP 18; TEMP 36.6; O2SAT 99
--- NOTE | 2022-09-10 | ECG_ITS ---
Test Reason : cp Blood Pressure : / mmHG Vent. Rate : 058 BPM Atrial Rate : 058 BPM P-R Int : 170 ms QRS Dur : 086 ms QT Int : 416 ms P-R-T Axes : 061 070 069 degrees QTc Int : 408 ms Sinus bradycardia Otherwise normal ECG When compared with ECG of 08-AUG-2022 10:00, No significant change was found Referred By: Ashely Shukla Electronically Signed By:ANETTE DEL CID
[2022-09-10 03:32] VITALS: BP 113/70; PULSE 59; RESP 16; TEMP 36.1; O2SAT 100
[2022-09-10] MEDS: metroNIDAZOLE/NS 500 MG/100 ML PIGGYBACK 100 MG IV (04:00)
--- NOTE | 2022-09-10 04:19 | PC.NURSE ---
at 0400 pt c/o chest pain and heart palpitations, Dr. Shukla notified, EKG ordered and done, will continue to monitor.
[2022-09-10] MEDS: Doxycycline Hyclate 100 MG in 0.9 % Sodium Chloride 250 ML 166.67 MG IV (05:03)
[2022-09-10] MEDS: Levothyroxine Sodium 112 MCG TABLET PO (05:08)
[2022-09-10 07:45] VITALS: BP 138/82; PULSE 63; RESP 18; TEMP 36.1; O2SAT 100
[2022-09-10] MEDS: lisinopriL 10 MG TABLET PO (08:28)
[2022-09-10] MEDS: Aspirin Enteric Coated 81 MG TABLET.DR PO (08:29)
--- NOTE | 2022-09-10 10:42 | P.DS_ITS ---
DS: Providers Provider Date of Service: 09/10/22 Date of admission: 09/07/22 17:33 Date of discharge: 09/10/22 Primary care physician: Leonardo Perez PA-C Consults: 09/07/22 15:42 Consult to General Surgery Stat Consulting Provider: [facility] Reason for consultation: abnormal CT scan, r/o obstruction DS: Diagnosis Discharge Diagnosis (1) Pelvic inflammatory disease (PID): Status: Acute (2) Urinary tract infection: Status: Acute DS: Summary Hospital Course Hospital Course: from admission H+P by hospitalist Babs Green, 09/07/22: 52-year-old female with past medical history of hypertension, remote was hypothyroidism, history of cervical cancer status post cervical LEEP, top hat excision procedure done [address] Montemayor , 2 days ago patient developed fever associated with nausea and since last night developed lower abdominal pain, with no associated cervical discharge, no bleeding denies urinary burning, no dysuria but noted increased urinary frequency without increased fluid intake, she denies diarrhea, no lightheadedness or dizziness, abdominal x-ray showed non obstructive bowel gas pattern, suspect hepatomegaly, pelvic CT scan, showed ankle arched cervix heterogeneous and hyperemic with very mild cecilia cervical fat stranding, could be related to reactive postprocedural changes versus infecti ous/ inflammatory cervicitis, no drainable abscess noted small bowel was slightly distended, patient had normal CBC, stable renal function? and electrolytes, vitals stable with a low-grade temp of 99.7 degrees patient evaluated in ED bed Dr. Montemayor, he recommended admission for IV antibiotics to cover PID, patient being admitted to medical service for antibiotic treatment and close monitoring. 52yo F with HTN/hypothyroidism presented on POD#6 from cervical LEEP/top-hat excision/conization for VERONIKA 2-3 with 2d of fever/suprapubic discomfort/urinary frequency and was admitted for cervicitis/PID/UTI. TRAY SETTER was consulted and she was treated with doxycycline, metronidazole, and ceftriaxone with symptomatic improvement. Trich/BV/yeast + GC/CT molecular tests were negative, as was blood culture. Urine culture grew E. coli resistant to ampicillin. She was discharged on metronidazole plus doxycycline for 12 days [after getting 2 full days in the hospital] plus cefuroxime for 5 days [after getting 2 full days in the [facility]] and will follow-up with her gnecologist, Dr Dwain Montemayor, within 2 weeks. Time Spent with Patient Time attestation: Total time managing care of this patient today __35__ minutes. Discharge coordination time: Greater than 30 minutes Quality: Safe Use of Opioids Does Pt have an Active Cancer Diagnosis on the Problem List?: No Quality: Stroke Does the patient have a stroke diagnosis?: No Physical Exam Vital Signs: Vital Signs: Last Vital Signs Temp 97 F 09/10/22 07:45 Pulse 63 09/10/22 07:45 Resp 18 09/10/22 07:45 BP 138/82 09/10/22 07:45 Pulse Ox 100 09/10/22 07:45 O2 Del Method Room Air 09/10/22 07:45 BMI result Body Mass Index 21.1 Gen: in no acute distress HEENT: sclera anicteric, moist mucus membranes Neck: supple Lungs: clear to auscultation bilaterally Heart: regular rate and rhythm, no murmurs Abd: soft, non-tender, non-distended Ext: no edema Skin: warm/well-perfused Neuro: alert and oriented x3, no focal findings Psych: appropriate affect DS: Data Data Completed and Pending Completed studies during hospitalization [Text1]: Laboratory Results WBC 6.0 X10*3/uL (4.8-10.8) 09/09/22 05:37 RBC 4.12 X10*6/uL (4.20-5.50) L 09/09/22 05:37 Hgb 12.4 g/dl (12.0-16.0) 09/09/22 05:37 Hct 37.3 % (37.0-47.0) 09/09/22 05:37 MCV 90.5 fL (80.0-98.0) 09/09/22 05:37 MCH 30.1 pg (27.0-33.0) 09/09/22 05:37 MCHC 33.2 g/dl (31.0-35.0) 09/09/22 05:37 RDW 12.1 % (11.0-16.0) 09/09/22 05:37 Plt Count 257 X10*3/uL (160-400) 09/09/22 05:37 MPV 9.3 fL (9.4-12.3) L 09/09/22 05:37 Immature Gran % (Auto) 0.3 % (0.0-0.4) 09/07/22 12:53 Neut % (Auto) 70.9 % (45-73) 09/07/22 12:53 Lymph % (Auto) 20.4 % (20-40) 09/07/22 12:53 [place] % (Auto) 7.4 % (2-11) 09/07/22 12:53 Eos % (Auto) 0.8 % (0-4) 09/07/22 12:53 Baso % (Auto) 0.2 % (0-2) 09/07/22 12:53 Lymph # (Auto) 1.8 X10*3/uL (1.2-4.9) 09/07/22 12:53 [place] # (Auto) 0.6 X10*3/uL (0.1-1.2) 09/07/22 12:53 Eos # (Auto) 0.1 X10*3/uL (0.0-0.4) 09/07/22 12:53 Baso # (Auto) 0.0 X10*3/uL (0.0-0.2) 09/07/22 12:53 Abs Immat Gran (auto) 0.03 X10*3/uL (0.00-0.03) 09/07/22 12:53 Absolute Neuts (auto) 6.1 x10*3/uL (2.0-8.3) 09/07/22 12:53 Absolute Nucleated RBC 0.000 X10*3/uL (0.0-0.012) 09/09/22 05:37 Nucleated RBC % (auto) 0.0 /100WBC (0.0-0.2) 09/09/22 05:37 Sodium 140 mmol/L (135-145) 09/07/22 12:53 Potassium 4.2 mmol/L (3.3-5.1) 09/07/22 12:53 Chloride 102 mmol/L (96-108) 09/07/22 12:53 Carbon Dioxide 29 mmol/L (22-29) 09/07/22 12:53 Anion Gap 13 (12-20) 09/07/22 12:53 BUN 7 mg/dL (9-16) L 09/07/22 12:53 Creatinine 0.76 mg/dL (0.5-1.4) 09/07/22 12:53 Estim Creat Clear Calc 73.5 09/07/22 12:53 Estimated GFR > 60 09/07/22 12:53 Random Glucose 100 mg/dL (60-115) 09/07/22 12:53 Lactic Acid 1.1 mmol/L (0.5-2.0) 09/07/22 12:53 Calcium 9.9 mg/dL (8.4-10.2) 09/07/22 12:53 Magnesium 1.9 mg/dL (1.6-2.6) 09/07/22 12:53 Total Bilirubin 0.4 mg/dL (0.0-1.0) 09/07/22 12:53 AST 14 U/L (5-31) 09/07/22 12:53 ALT 17 U/L (0-31) 09/07/22 12:53 Alkaline Phosphatase 66 U/L (39-117) 09/07/22 12:53 C-Reactive Protein 2.25 mg/dL (< or = 0.50) H 09/09/22 05:37 Total Protein 7.3 g/dL (6.5-8.0) 09/07/22 12:53 Albumin 4.4 g/dL (3.5-5.0) 09/07/22 12:53 Urine Color Yellow 09/07/22 13:14 Urine Appearance Cloudy 09/07/22 13:14 Urine pH 6.5 (5.0-9.0) 09/07/22 13:14 Ur Specific [place] <= 1.005 (1.005-1.025) 09/07/22 13:14 Urine Protein 30 (1+) mg/dL (Neg-Trace) H 09/07/22 13:14 Urine Glucose (UA) Negative mg/dL (Negative) 09/07/22 13:14 Urine Ketones Negative mg/dL (Negative) 09/07/22 13:14 Urine Blood Large (3+) (Negative) H 09/07/22 13:14 Urine Nitrite Negative (Negative) 09/07/22 13:14 Ur Leukocyte Esterase Large (3+) (Negative) H 09/07/22 13:14 Urine RBC 11-20 /HPF (0-2) H 09/07/22 13:14 Urine WBC >50 /HPF (0-5) H 09/07/22 13:14 Ur Squamous Epith Cells 0-2 /HPF (0-2) 09/07/22 13:14 Urine Bacteria 1+ (None Seen) 09/07/22 13:14 Hyaline Casts 0-2 /LPF (0-2) 09/07/22 13:14 Emily species DNA Negative (Negative) 09/07/22 13:14 Chlam trachomat DNA PCR NOT DETECTED (Not Detect.) 09/07/22 13:14 COVID-19 ([facility]) Negative (Negative) 09/07/22 15:27 COVID-19 Clin Com See Note 09/07/22 15:27 Gardnerella DNA Probe Negative (Negative) 09/07/22 13:14 N.gonorrhoeae DNA (PCR) NOT DETECTED (Not Detect.) 09/07/22 13:14 Trichomonas DNA Probe Negative (Negative) 09/07/22 13:14 Impressions Abdomen X-Ray 09/07/22 13:04 IMPRESSION: 1. Nonobstructive bowel gas pattern. 2. Suspect hepatomegaly. Pelvis CT 09/07/22 14:07 IMPRESSION: 1. The cervix is engorged, heterogeneous and hyperemic with very mild pericervical fat stranding. These findings are nonspecific and could be related with reactive postprocedural changes versus infectious/inflammatory cervicitis. Underlying malignancy is not excluded and correlation with history is recommended. A short-term follow-up is recommended to reassess. 2. No evidence of drainable collection or abscess. 3. Fluid-filled and slightly distended small bowel, nonspecific could be associated with ileus or gastroenteritis. 4. Colonic diverticulosis without significant pericolonic inflammatory changes within the [id number]. This result was discussed with Fatou Mcqueen at 09/07/2022 3:23 PM and it was ascertained that the content and urgency of the report was understood at the time of direct communication. Labs on day of discharge: Preliminary micro results at discharge 09/07/22 12:53 Blood Culture - Preliminary Blood - Venous No growth after 48 hours. 09/07/22 12:53 Blood Culture - Preliminary Blood - Venous No growth after 48 hours. Discharge Plan Discharge Anticipated Discharge Date/Time: 09/10/22 10:36 Patient Disposition: Home, Self-Care Discharge Diagnosis: PID, UTI Referrals: Leonardo Perez PA-C [Primary Care Provider] - 1 Week Dwain Montemayor MD [Physician] - 1 Week Discharge Medications: New metronidazole 500 mg tablet 500 mg PO BID Qty: 24 0RF doxycycline monohydrate 100 mg tablet 100 mg PO BID Qty: 24 0RF cefuroxime axetil 500 mg tablet 500 mg PO BID Qty: 10 0RF Continued lisinopril 10 mg tablet 10 mg PO DAILY 90 Days Qty: 90 1RF cholecalciferol (vitamin D3) 125 mcg (5,000 unit) capsule 125 mcg PO DAILY Qty: 30 5RF levothyroxine 112 mcg tablet 112 mcg PO DAILY@0600 ([facility] [place] Blood Pressure Cuff Misc See Rx Instructions .ROUTE .MEDSUPPLY Qty: 1 0RF Rx Instructions: As directed aspirin 81 mg tablet,delayed release (DR/EC) 81 mg PO DAILY Discharge Orders: Discharge Order (Routine); Ordered 09/10/22 Ordered By: Brian Leong Diet: Advance to usual diet Activity on Discharge: As tolerated Stand Alone Forms: Patient Portal Discharge page Care Plan Goals: recovery from infection Health Concerns: PID, UTI Plan of Treatment: PID: take doxycycline 100 mg twice daily PLUS metronidazole 500 mg twice daily for total 12 days. follow up with Dr Montemayor within 2 weeks UTI: take cefuroxime 500 mg twice daily for 5 days Please follow up with your primary care doctor within 1 week. Return to the hospital if you experience recurrent or worsening symptoms. Assessment: See Discharge Summary. Discharge Date/Time: 09/10/22 10:56
== END 2022-09-10 10:56 | disposition home or self-care (01) | DRG 863 ==
LOC: HO.ED 15:46 → HO.EDOVER 17:59 → HO.S3 18:05
PROVIDERS: Nurse Practitioner Family; Physician Assistant; Admitting Provider Hospitalist; Emergency Provider Student in an Organized Health Care Education/Training Program; PCP Physician Assistant; Visit Provider Family Medicine
DX: T81.40XA Infection following a procedure, unspecified, initial encounter (principal); N39.0 Urinary tract infection, site not specified; Z16.11 Resistance to penicillins; Y83.9 Surgical procedure, unspecified as the cause of abnormal reaction of the patient, or of later complication, without mention of misadventure at the time of the procedure; Z20.822 Contact with and (suspected) exposure to COVID-19; E03.9 Hypothyroidism, unspecified; F17.210 Nicotine dependence, cigarettes, uncomplicated; N73.9 Female pelvic inflammatory disease, unspecified; Z71.6 Tobacco abuse counseling; Z88.0 Allergy status to penicillin; Z88.8 Allergy status to other drugs, medicaments and biological substances; Z79.82 Long term (current) use of aspirin; Z79.890 Hormone replacement therapy; Z79.899 Other long term (current) drug therapy; B96.20 Unspecified Escherichia coli [E. coli] as the cause of diseases classified elsewhere
CPT/HCPCS: 0353U; 36415; 72193; 74019; 80053; 81001; 83605; 83735; 85025; 85027; 86140; 87040; 87086; 87088; 87186; 87480; 87510; 87635; 87660; 93005; 99285; J0696; J1650; J2270; Q9967

== ENCOUNTER → 2022-09-26 10:39 | Outpatient (REF) | payer OTHER, SELFPAY ==
--- NOTE | 2022-09-26 10:44 | HM_ITS ---
Cardiac event monitor Indication: Palpitation Technique: Patient was hooked up to cardiac event monitor on 09/26/2022 for total period of 30 days with a compliance rate of 87.2% Findings: Baseline was normal sinus rhythm with no significant pauses noted. Frequent sinus bradycardia, 33% of the time. Frequent isolated PVCs noted with total burden of 2.94%. Rare PACs noted. There are no significant tachyarrhythmias noted such as SVT or atrial fibrillation. Patient reported multiple events. Eleven reported events of chest pain correlated with either sinus rhythm or isolated PVCs or PACs. Patient reported 4 events of irregular heartbeat or flutter that correlated with PVCs or PACs Patient reported 4 events of palpitations that correlated with either PACs or PVCs Patient reported 1 event of nausea that correlated with sinus bradycardia Patient reported 1 event of shortness of breath that correlated with ventricular bigeminy Patient reported 1 event of feeling tired that correlated with sinus rhythm Conclusion: 1. Baseline was normal sinus rhythm with no pauses 2. Frequent PVCs noted 3. Patient reported multiple events correlated either with isolated PACs or PVCs sometimes in bigeminy pattern [facility]
[2022-09-26 11:57] LABS: Hematocrit 40.1 % (37.0-47.0); Hemoglobin 13.3 g/dl (12.0-16.0); Mean Corpuscular HGB Conc 33.2 g/dl (31.0-35.0); Mean Corpuscular Hemoglobin 30.2 pg (27.0-33.0); Mean Corpuscular Volume 91.1 fL (80.0-98.0); Mean Platelet Volume 9.6 fL (9.4-12.3); Platelet Count 321 X10*3/uL (160-400); Red Cell Distribution Width 11.9 % (11.0-16.0); White Blood Count 5.9 X10*3/uL (4.8-10.8)
[2022-09-26 12:29] LABS: Alanine Aminotransferase 26 U/L (0-31); Albumin Level 4.1 g/dL (3.5-5.0); Alkaline Phosphatase 54 U/L (39-117); Anion Gap 11 (12-20); Aspartate Amino Transferase 15 U/L (5-31); Bilirubin Total 0.4 mg/dL (0.0-1.0); Blood Urea Nitrogen 14 mg/dL (9-16); Calcium 9.7 mg/dL (8.4-10.2); Carbon Dioxide 31 mmol/L (22-29); Chloride 103 mmol/L (96-108); Cholesterol 246 mg/dL; Estimated Glomerular Filt Rate > 60; Glucose Fasting 90 mg/dL (60-99); HDL Cholesterol 55 mg/dL; Iron 84 mcg/dL (30-160); LDL Cholesterol Calculated 132 mg/dl; Percent Iron Saturation 37 % (15-50); Potassium 4.2 mmol/L (3.3-5.1); Sodium 141 mmol/L (135-145); Total Iron Binding Capacity 228 mcg/dL (228-428); Triglycerides 297 mg/dL; Unsaturated Iron Binding 144 ug/dL
[2022-09-26 13:01] LABS: Free T4 (Free Thyroxine) 1.45 ng/dL (0.71-1.85); Thyroid Stimulating Hormone 0.06 uIU/mL (0.32-4.0); Vitamin B12 436 pg/mL (200-900)
== END ==
LOC: HO.CARD 10:39
PROVIDERS: Internal Medicine Endocrinology, Diabetes & Metabolism; Physician Assistant; Visit Provider Internal Medicine Cardiovascular Disease
DX: E03.8 Other specified hypothyroidism (principal); E06.3 Autoimmune thyroiditis; D50.9 Iron deficiency anemia, unspecified; E78.00 Pure hypercholesterolemia, unspecified; E53.8 Deficiency of other specified B group vitamins; R00.2 Palpitations
CPT/HCPCS: 36415; 80053; 80061; 82607; 82746; 83540; 84439; 84443; 85027; 93270

== ENCOUNTER → 2022-09-26 10:44 | Outpatient (BNV) | payer OTHER, SELFPAY | PROVIDERS: Visit Provider Internal Medicine Cardiovascular Disease | DX: R00.1 Bradycardia, unspecified (principal) | CPT/HCPCS: 93272 ==

== ENCOUNTER → 2022-10-18 11:19 | Outpatient (BNVA) | payer OTHER, SELFPAY | PROVIDERS: PCP Physician Assistant; Visit Provider Obstetrics & Gynecology | DX: D06.9 Carcinoma in situ of cervix, unspecified (principal) | CPT/HCPCS: 99212 ==

== ENCOUNTER 2022-12-14 07:16 | Outpatient (REF) | payer OTHER, SELFPAY ==
[2022-12-14 08:12] LABS: Alanine Aminotransferase 24 U/L (0-31); Albumin Level 4.2 g/dL (3.5-5.0); Alkaline Phosphatase 47 U/L (39-117); Anion Gap 14 (12-20); Aspartate Amino Transferase 21 U/L (5-31); Bilirubin Total 0.5 mg/dL (0.0-1.0); Blood Urea Nitrogen 12 mg/dL (9-16); Calcium 9.9 mg/dL (8.4-10.2); Carbon Dioxide 24 mmol/L (22-29); Chloride 104 mmol/L (96-108); Cholesterol 231 mg/dL; Estimated Glomerular Filt Rate > 60; Glucose Fasting 116 mg/dL (60-99); HDL Cholesterol 53 mg/dL; LDL Cholesterol Calculated 151 mg/dl; Potassium 4.2 mmol/L (3.3-5.1); Sodium 138 mmol/L (135-145); Total Protein 7.4 g/dL (6.5-8.0); Triglycerides 137 mg/dL
[2022-12-14 08:30] LABS: TSH reflex Free T4 0.04 uIU/mL (0.32-4.0)
[2022-12-14 10:20] LABS: Free T4 (Free Thyroxine) 1.58 ng/dL (0.71-1.85)
[2022-12-14 11:06] LABS: Creatinine Urine 108.02 mg/dL; Microalbum/Creatinine Ratio Ur 17.5 ug/mg cr
[2022-12-19 23:04] LABS: Cotinine <2 ng/mL; Nicotine <2 ng/mL
== END 2022-12-14 07:17 | disposition home or self-care (01) ==
LOC: HO.LAB 07:16
PROVIDERS: PCP Physician Assistant; Visit Provider Physician Assistant
DX: M79.10 Myalgia, unspecified site (principal); F17.200 Nicotine dependence, unspecified, uncomplicated; E78.00 Pure hypercholesterolemia, unspecified; E03.8 Other specified hypothyroidism; E06.3 Autoimmune thyroiditis; I10 Essential (primary) hypertension
CPT/HCPCS: 36415; 80053; 80061; 80323; 82043; 82550; 84439; 84443

== ENCOUNTER 2022-12-20 10:51 | Outpatient (AMB) | payer OTHER, SELFPAY ==
[2022-12-20 10:52] VITALS: BP 140/100; PULSE 94; O2SAT 98; BMI 23.0
--- NOTE | 2022-12-20 10:52 | A.OFFPC_ITS ---
Vital Signs 12/20/22 10:52 Height 5 ft 5 in Weight 138 lb 2 oz BMI 23.0 BP 140/100 H Blood Pressure Location Lt brachial Position Sitting Pulse 94 Pulse Source Pulse Oximeter Pulse Oximetry (%) 98 Oxygen Delivery Method Room Air Intake Visit Reasons: f/u HLD/ hypothyroid Intake Note: Patient is here to follow up on HLD and hypothyroid. 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 Accompanied by: Self / Same As Patient Allergies amoxicillin [From AUGMENTIN] Allergy (Severe, Verified 12/20/22 10:59) Anaphylaxis clavulanic acid [From AUGMENTIN] Allergy (Severe, Verified 12/20/22 10:59) Anaphylaxis ketorolac [From Toradol] Allergy (Unknown, Verified 12/20/22 10:59) Anaphylaxis prochlorperazine [From COMPAZINE] Allergy (Unknown, Verified 12/20/22 10:59) INVOLUNTARY SPASMS Medication List - Last Reconciled 12/20/22 by Leonardo Perez PA-C aspirin 81 mg PO DAILY cholecalciferol (vitamin D3) 125 mcg PO DAILY levothyroxine 100 mcg PO DAILY 90 days lisinopril 10 mg PO DAILY 90 days miscellaneous medical supply (Blood Pressure Cuff) As directed simvastatin 10 mg PO DAILY 90 days Tobacco use date assessed: 08/22/22 Dental Screening Dental Screen Date: 12/20/22 Did you have a dental visit in the last 12 months?: Yes Did you have a dental problem in the last 6 months where you did not have access to dental care?: No Was dental information given to patient?: Patient has dentist HPI f/u HLD/ hypothyroid HPI Details Pateint is a 52 y/o F here today for a annual physical. Patient has a Pmhx significant for Billy's,, HTN, tobacco dependency, Peripheral neuropathy. 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 Concern--> reports as of late she has been having elevations in her blood pressure having headaches. Also reports having some epigastric discomfort and over the last 2 days having dark color stools. Has had history of gastric ulcer disease. . Hypothyroid:? Patient followed by Endocrinology, most recent TSH low thus will decrease her dose dose of levothyroxine down to 88 mcg. .. Tobacco use disorder:? Has completely quit smoking. I congratulated her on this Anxiety:? ANXIETY HAS BEEN BETTER SINCE SHE HAS STOPPED ALL ARTIFICIAL SWEETENERS CONTAINING ASPARTAME. SHE FEELS SHE HAD ASPARTAME POISONING WHICH IS CAUSING A LOT OF HER ANXIETY, HAD BUZZING, , WEIGHT LOSS, PALPITATIONS AND CHEST DISCOMFORTS.? SHE REPORTS SHE IS FEELING A LOT BETTER AND BLOOD PRESSURE HAS BEEN MUCH MORE STABLE. SHE IS NO LONGER TAKING LORAZEPAM. Laboratory Tests 09/26/22 12/14/22 12/14/22 11:26 07:19 07:23 Creatinine 0.79 Fasting Glucose 116 H Cholesterol 246 231 LDL Cholesterol, C alc 132 151 TSH 0.06 L 0.04 L Urine Microalbumin 19.0 Nornicotine Level Cotinine 12/14/22 07:23 Creatinine Fasting Glucose Cholesterol LDL Cholesterol, C alc TSH Urine Microalbumin Nornicotine Level <2 Cotinine <2 PFSH Medical History COPD (chronic obstructive pulmonary disease) Dysphagia Elevated cholesterol Family history of colon cancer Family history of pancreatic cancer Fever of unknown origin History of cervical cancer HTN (hypertension) Hypothyroidism (~1999) Near syncope Nicotine dependence, cigarettes, uncomplicated Pelvic pain Unintentional weight loss Vitamin D deficiency Surgical History History of History of endometrial ablation History of throat surgery (~2011) History of tonsillectomy (~1976) Family History Mother Alzheimer's dementia CVD (cardiovascular disease) Maternal Grandfather Pancreatic cancer Social History Household Members: Children Household Members Other:: lives at home with 20-year-old daughter Housing: Apartment Do you presently have visiting nurse or other home services: No Alcohol intake: never Patient Tobacco Use Status: Current everyday Tobacco user Tobacco use type: Cigarette Cigarette Packs Per Day: 0.5 Cigarettes Per Day: 5 Years Smoked: (onset 11, 1ppd x 40yrs, now 1/4ppd, 40pyh) e-Cigarette/Vaping Use: Never Used Second Hand Smoke Exposure: Yes Substance Use Type: Marijuana service: No Current occupational status: disabled Cognitive needs: No Hearing needs: No Vision needs: No Female Reproductive History Menstrual Age of Menarche: 11 Questionnaire Thrive Questionnaire Date Thrive assessed: 08/22/22 STONE-7 AMB Questionnaire STONE-7 Date STONE - 7 assessed: 08/22/22 Source: Developed by Drs. 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 Review of Systems Const Reports headache(s) Eyes Denies loss of vision ENT Denies vertigo, Denies dizziness, Reports headache(s) and Denies sore throat Card Denies chest pain, Denies leg edema and Denies lightheadedness Resp Denies cough, Denies hemoptysis and Denies wheezing GI Denies abdominal pain, Reports melena, Denies constipation, Reports dyspepsia, Reports heartburn, Denies diarrhea and Denies vomiting Denies urinary frequency, Denies dysuria and Denies urinary urgency Musc Denies arthralgias, Denies joint swelling, Denies numbness and Denies tingling Neuro Denies Abnormal speech present, Denies behavioral changes, Denies vertigo, Denies dizziness, Reports headache(s), Denies loss of vision, Denies memory loss, Denies numbness and Denies tingling Psych Denies anxiety, Denies behavioral changes, Denies depression, Denies memory loss and Denies panic attacks Lawrence/Lymph Denies easy bleeding and Denies easy bruising Aller/Immun Denies wheezing Physical exam (Primary Care) Vital Signs: Last Vital Signs Pulse 94 12/20/22 10:52 BP 140/100 H 12/20/22 10:52 Pulse Ox 98 12/20/22 10:52 Oxygen Delivery Method Room Air 12/20/22 10:52 BMI result Body Mass Index 23.0 Tobacco/Smoking Status: Tobacco use Status Tobacco use date assessed 08/22/22 12/20/22 10:59 Patient Tobacco Use Status Current everyday Tobacco 12/20/22 10:59 Tobacco use type Cigarette 12/20/22 10:59 e-Cigarette/Vaping Use Never Used 12/20/22 10:59 Thrive Assessment: Date of Thrive Assessment Date Thrive assessed 08/22/22 12/20/22 10:59 Const General: healthy appearing, no acute distress, alert and awake Nutritional Appearance: well nourished Orientation/consciousness: oriented to person, oriented to place and oriented to time [facility] Ears: TM's normal bilaterally General nose exam: Normal nasal mucous membranes and turbinates present Eyes Conjunctivae: conjunctivae normal Sclerae: sclerae normal Pupils: Equal, round and reactive pupils present Neck Neck: Yes no lymphadenopathy and Yes no JVD Thyroid: Thyroid normal Carotids: no bruits Resp Effort & Inspection: normal respiratory effort and not tachypneic Auscultation: no crackles, no rales, no rhonchi and no wheezes Cardio Rate: regular rate Rhythm: regular rhythm Heart sounds: no murmurs and normal S1 and S2 GI Palpation (GI): Soft to palpation, nontender, no hepatomegaly and no splenomegaly Auscultation: normal bowel sounds Skin General skin exam: no rashes or lesions noted and dry skin Neuro General: oriented to person, oriented to place and oriented to time Cranial nerves: Yes Equal, round and reactive pupils present Speech: No Abnormal speech present Gait exam (Neuro): Normal gait present Motor exam (neuro): no tremor noted Extrem Right upper extremity: full ROM Left upper extremity: full ROM Right lower extremity: full ROM; no edema Left lower extremity: full ROM; no edema Psych Mental Status: mental status grossly normal Speech and movement: Normal speech and movement present Affect: normal affect Attitude: cooperative Thought process: Normal thought process present Assessment and Plan Assessment & Plan (1) HTN (hypertension): Code(s): I10 - Essential (primary) hypertension Qualifiers: Hypertension type: primary hypertension Qualified Code(s): I10 - Essential (primary) hypertension Plan: Patient's blood pressure elevated today in office. Does report having a daily headache. Advised to increase her lisinopril dose to 20 mg for the time being. Also noted low TSH thus will real back on her levothyroxine medication down to 88 mcg. (2) Dark stools: Code(s): R19.5 - Other fecal abnormalities Plan: Patient reports a 3 day history dark tarry stools. Concern for upper GI bleed thus will send for testing. Advised on starting and and has an medication. Does have GI specialist though has been unable to get in for colonoscopy or endoscopy recently. 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 Qualified Code(s): E03.8 - Other specified hypothyroidism; E06.3 - Autoimmune thyroiditis Plan: As above patient's TSH low thus will decrease her levothyroxine dose Orders: Orders Gastric Occult Blood Test 12/20/22 R19.5 - Other fecal abnormalities IRON PROFILE 12/20/22 D50.9 - Iron deficiency anemia, unspecified, R19.5 - Other fecal abnormalities Complete Blood Count no Diff 12/20/22 R19.5 - Other fecal abnormalities TSH reflex Free T4 6 Weeks E03.8 - Other specified hypothyroidism, E06.3 - Autoimmune thyroiditis Medications: New simvastatin 20 mg PO DAILY 30 days 30 tabs 1RF E78.00 - Pure hypercholesterolemia, unspecified levothyroxine 88 mcg PO DAILY 30 days 30 tabs 1RF E03.8 - Other specified hypothyroidism, E06.3 - Autoimmune thyroiditis Discontinued simvastatin Discontinued Reason: Doctor's Order 10 mg PO DAILY 90 days 90 tabs 1RF E78.00 - Pure hypercholesterolemia, unspecified levothyroxine Discontinued Reason: Doctor's Order 100 mcg PO DAILY 90 days 90 tabs 1RF E03.8 - Other specified hypothyroidism, E06.3 - Autoimmune thyroiditis levothyroxine 112 mcg PO DAILY 30 tabs 4RF Coding Level of Care Code Est Pt Level 4 (10064) Diagnoses HTN (hypertension) I10 Hypertension type: primary hypertension Dark stools R19.5 Hypothyroidism E03.8; E06.3 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
== END 2022-12-20 11:29 | disposition home or self-care (01) ==
PROVIDERS: Visit Provider Physician Assistant
DX: I10 Essential (primary) hypertension (principal); R19.5 Other fecal abnormalities; E03.8 Other specified hypothyroidism; E06.3 Autoimmune thyroiditis
CPT/HCPCS: 99214

== ENCOUNTER 2022-12-20 11:35 | Outpatient (REF) | payer OTHER, SELFPAY ==
[2022-12-20 12:28] LABS: Hematocrit 42.2 % (37.0-47.0); Hemoglobin 14.2 g/dl (12.0-16.0); Mean Corpuscular HGB Conc 33.6 g/dl (31.0-35.0); Mean Corpuscular Hemoglobin 28.7 pg (27.0-33.0); Mean Corpuscular Volume 85.4 fL (80.0-98.0); Mean Platelet Volume 9.5 fL (9.4-12.3); Platelet Count 285 X10*3/uL (160-400); Red Blood Count 4.94 X10*6/uL (4.20-5.50); Red Cell Distribution Width 12.6 % (11.0-16.0); White Blood Count 5.7 X10*3/uL (4.8-10.8)
[2022-12-20 13:11] LABS: Iron 49 mcg/dL (30-160); Percent Iron Saturation 19 % (15-50); Total Iron Binding Capacity 259 mcg/dL (228-428); Unsaturated Iron Binding 210 ug/dL
== END 2022-12-20 11:36 | disposition home or self-care (01) ==
LOC: HO.LAB 11:35
PROVIDERS: PCP Physician Assistant; Visit Provider Physician Assistant
DX: R19.5 Other fecal abnormalities (principal); D50.9 Iron deficiency anemia, unspecified
CPT/HCPCS: 36415; 83540; 85027

== ENCOUNTER 2023-01-29 07:03 | Outpatient (REF) | payer OTHER, SELFPAY ==
[2023-01-29 08:53] LABS: Alanine Aminotransferase 32 U/L (0-31); Albumin Level 4.5 g/dL (3.5-5.0); Alkaline Phosphatase 48 U/L (39-117); Anion Gap 15 (12-20); Aspartate Amino Transferase 23 U/L (5-31); Bilirubin Total 0.5 mg/dL (0.0-1.0); Blood Urea Nitrogen 7 mg/dL (9-16); Calcium 10.5 mg/dL (8.4-10.2); Carbon Dioxide 23 mmol/L (22-29); Chloride 102 mmol/L (96-108); Cholesterol 281 mg/dL (<200); Estimated Glomerular Filt Rate > 60; Glucose Fasting 115 mg/dL (60-99); HDL Cholesterol 64 mg/dL (>40); LDL Cholesterol Calculated 194 mg/dL (<100); Lipase 31 U/L (8-78); Potassium 4.1 mmol/L (3.3-5.1); Sodium 136 mmol/L (135-145); Total Protein 7.8 g/dL (6.5-8.0); Triglycerides 119 mg/dL (<150)
[2023-01-29 08:59] LABS: TSH reflex Free T4 1.17 uIU/mL (0.32-4.0)
== END 2023-01-29 07:04 | disposition home or self-care (01) ==
LOC: HO.LAB 07:03
PROVIDERS: PCP Physician Assistant; Visit Provider Physician Assistant
DX: E03.8 Other specified hypothyroidism (principal); E06.3 Autoimmune thyroiditis; K86.1 Other chronic pancreatitis; E78.00 Pure hypercholesterolemia, unspecified
CPT/HCPCS: 36415; 80053; 80061; 83690; 84443

== ENCOUNTER 2023-01-31 09:02 | Outpatient (AMB) | payer OTHER, SELFPAY ==
--- NOTE | 2023-01-31 09:26 | MHC.PC.OV ---
Vital Signs 01/31/23 09:27 Height 5 ft 5 in Weight 137 lb 8 oz BMI 22.9 BP 140/92 H Blood Pressure Location Lt brachial Position Sitting Respiration 16 Pulse 95 Pulse Source Pulse Oximeter Pulse Oximetry (%) 98 Oxygen Delivery Method Room Air Intake Visit Reasons: f/u Hypothyroid Intake Note: Pt is here for hypothyroid F/U. Pt has been experiencing muscle weakness and joints pain, headache and fatigue is getting worse. About 4 days loss of appetite. 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 Accompanied by: Self / Same As Patient Allergies amoxicillin [From AUGMENTIN] Allergy (Severe, Verified 01/31/23 09:42) Anaphylaxis clavulanic acid [From AUGMENTIN] Allergy (Severe, Verified 01/31/23 09:42) Anaphylaxis ketorolac [From Toradol] Allergy (Unknown, Verified 01/31/23 09:42) Anaphylaxis prochlorperazine [From COMPAZINE] Allergy (Unknown, Verified 01/31/23 09:42) INVOLUNTARY SPASMS Medication List - Last Reconciled 01/31/23 by Leonardo Perez PA-C aspirin 81 mg PO DAILY cholecalciferol (vitamin D3) 125 mcg PO DAILY levothyroxine 88 mcg PO DAILY 30 days lisinopril 10 mg PO DAILY 90 days miscellaneous medical supply (Blood Pressure Cuff) As directed simvastatin 20 mg PO DAILY 30 days Tobacco use date assessed: 08/22/22 Dental Screening Dental Screen Date: 01/31/23 Did you have a dental visit in the last 12 months?: No Did you have a dental problem in the last 6 months where you did not have access to dental care?: No Was dental information given to patient?: Patient has dentist HPI f/u Hypothyroid HPI Details Patient is a 52-year-old female here today for a follow-up visit. Patient's past medical history significant for hypertension, hyperlipidemia, hypothyroidism generalized anxiety disorder. She reports over the last 4 days having decreased appetite, myalgias and fatigue. Her labs do show elevated fasting blood sugar and elevated cholesterol. Interestingly enough she has started statin therapy and her cholesterol elevated. She continues to have epigastric pain and dark stools. She does have a history of peptic ulcer disease. She reports she is not able to get endoscopy due to issues with being placed under anesthesia. Most recent CBC and iron studies fairly stable. PLAN: Start Carafate for the presumptive diagnosis of bleeding ulcer. Also reporting just recently noting some pain in her upper back when she takes a deep breath. Laboratory Tests 12/20/22 01/29/23 12:07 07:26 RBC 4.94 Fasting Glucose 115 H ALT 32 H Cholesterol 281 H LDL Cholesterol, C alc 194 H Lipase 31 TSH 1.17 PFSH Medical History COPD (chronic obstructive pulmonary disease) Dysphagia Elevated cholesterol Family history of colon cancer Family history of pancreatic cancer Fever of unknown origin History of cervical cancer HTN (hypertension) Hypothyroidism (~1999) Near syncope Nicotine dependence, cigarettes, uncomplicated Pelvic pain Unintentional weight loss Vitamin D deficiency Surgical History History of endometrial ablation History of tonsillectomy (~1976) History of History of throat surgery (~2011) Family History Mother Alzheimer's dementia CVD (cardiovascular disease) Maternal Grandfather Pancreatic cancer Social History Household Members: Children Household Members Other:: lives at home with 20-year-old daughter Housing: Apartment Do you presently have visiting nurse or other home services: No Alcohol intake: never Patient Tobacco Use Status: Current everyday Tobacco user Tobacco use type: Cigarette Cigarette Packs Per Day: 0.5 Cigarettes Per Day: 5 Years Smoked: (onset 11, 1ppd x 40yrs, now 1/4ppd, 40pyh) e-Cigarette/Vaping Use: Never Used Second Hand Smoke Exposure: Yes Substance Use Type: Marijuana service: No Current occupational status: disabled Cognitive needs: No Hearing needs: No Vision needs: No Female Reproductive History Menstrual Age of Menarche: 11 Questionnaire Thrive Questionnaire Date Thrive assessed: 08/22/22 STONE-7 AMB Questionnaire STONE-7 Date STOEN - 7 assessed: 08/22/22 Source: Developed by Drs. 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 Review of Systems Const Reports fatigue and Reports headache(s) Eyes Denies loss of vision ENT Denies vertigo, Reports dizziness, Reports headache(s) and Denies sore throat Card Reports chest pain, Denies leg edema and Denies lightheadedness Resp Denies cough, Denies hemoptysis and Denies wheezing GI Reports abdominal pain, Reports melena, Reports change in stool character, Denies constipation, Denies diarrhea and Denies vomiting Denies urinary frequency, Denies dysuria and Denies urinary urgency Musc Details: + myalgias Reports arthralgias, Denies joint swelling, Reports muscle cramps, Denies numbness and Denies tingling Neuro Denies Abnormal speech present, Denies behavioral changes, Denies vertigo, Reports dizziness, Reports headache(s), Denies loss of vision, Denies memory loss, Denies numbness and Denies tingling Psych Denies anxiety, Denies behavioral changes, Denies depression, Denies memory loss and Denies panic attacks Endo Reports fatigue Lawrence/Lymph Denies easy bleeding and Denies easy bruising Aller/Immun Denies wheezing Physical exam (Primary Care) Vital Signs: Last Vital Signs Pulse 95 01/31/23 09:27 Resp 16 01/31/23 09:27 BP 140/92 H 01/31/23 09:27 Pulse Ox 98 01/31/23 09:27 Oxygen Delivery Method Room Air 01/31/23 09:27 BMI result Body Mass Index 22.9 Tobacco/Smoking Status: Tobacco use Status Tobacco use date assessed 08/22/22 01/31/23 09:31 Patient Tobacco Use Status Current everyday Tobacco 01/31/23 09:31 Tobacco use type Cigarette 01/31/23 09:31 e-Cigarette/Vaping Use Never Used 01/31/23 09:31 Thrive Assessment: Date of Thrive Assessment Date Thrive assessed 08/22/22 01/31/23 09:31 Const General: healthy appearing, no acute distress, alert and awake Nutritional Appearance: well nourished Orientation/consciousness: oriented to person, oriented to place and oriented to time [facility] Ears: TM's normal bilaterally General nose exam: Normal nasal mucous membranes and turbinates present Eyes Conjunctivae: conjunctivae normal Sclerae: sclerae normal Pupils: Equal, round and reactive pupils present Neck Neck: Yes no lymphadenopathy and Yes no JVD Thyroid: Thyroid normal Carotids: no bruits Resp Effort & Inspection: normal respiratory effort and not tachypneic Auscultation: no crackles, no rales, no rhonchi and no wheezes Cardio Rate: regular rate Rhythm: regular rhythm Heart sounds: no murmurs and normal S1 and S2 GI Palpation (GI): Soft to palpation, Tenderness to palpation present (GI) in the epigastrum, no hepatomegaly and no splenomegaly Auscultation: normal bowel sounds Skin General skin exam: no rashes or lesions noted and dry skin Neuro General: oriented to person, oriented to place and oriented to time Cranial nerves: Yes Equal, round and reactive pupils present Speech: No Abnormal speech present Gait exam (Neuro): Normal gait present Motor exam (neuro): no tremor noted Extrem Right upper extremity: full ROM Left upper extremity: full ROM Right lower extremity: full ROM; no edema Left lower extremity: full ROM; no edema Psych Mental Status: mental status grossly normal Speech and movement: Normal speech and movement present Affect: normal affect Attitude: cooperative Thought process: Normal thought process present Assessment and Plan Assessment & Plan (1) HTN (hypertension): Code(s): I10 - Essential (primary) hypertension Qualifiers: Hypertension type: primary hypertension Qualified Code(s): I10 - Essential (primary) hypertension Plan: Patient's blood pressure elevated today in office. Does report having a daily headache. Unclear as to why her blood pressures are up and down. Could be due to pain and or side effect of medication. For now she will continue on lisinopril 10 mg ( 1/2 20mg tab) (2) Hypercalcemia: Code(s): E83.52 - Hypercalcemia Plan: Noted a slight elevation in her calcium level. 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 Will continue her on 88 mcg of levothyroxine. (4) High cholesterol: Code(s): E78.00 - Pure hypercholesterolemia, unspecified Plan: Most recent lipid panel showing elevated total cholesterol and LDL with the initiation of statin therapy. Will discontinue simvastatin at this time as she has been experiencing myalgias and fatigue. CPK level slightly elevated (5) Hyperglycemia: Code(s): R73.9 - Hyperglycemia, unspecified Plan: Noted is elevations in her fasting blood sugar ? Statin use. (6) GERD (gastroesophageal reflux disease): Code(s): K21.9 - Gastro-esophageal reflux disease without esophagitis Qualifiers: Esophagitis presence: without esophagitis Qualified Code(s): K21.9 - Gastro-esophageal reflux disease without esophagitis Plan: Patient continues to have epigastric discomfort and reports of dark stool. CBC and iron fairly stable low iron a drop since last lab draw. Will recheck CBC to ensure not severely anemic. Patient willing to start Carafate liquid (7) Pleuritic pain: Code(s): R07.81 - Pleurodynia Plan: Reports recently noting some pleuritic chest pain. Will send for x-ray to evaluate for a pulmonary infiltrate. Orders: Orders Complete Blood Count no Diff 01/31/23 K21.9 - Gastro-esophageal reflux disease without esophagitis XR chest 2V 01/31/23 R07.81 - Pleurodynia PTHI 01/31/23 E83.51 - Hypocalcemia IRON PROFILE 01/31/23 D50.9 - Iron deficiency anemia, unspecified, K21.9 - Gastro-esophageal reflux disease without esophagitis Lipid Panel 3 Months E78.00 - Pure hypercholesterolemia, unspecified Medications: New lisinopril 20 mg PO DAILY 30 days 30 tabs 1RF I10 - Essential (primary) hypertension sucralfate (Carafate) 10 mL PO BID 30 days 600 mL 2RF K21.9 - Gastro-esophageal reflux disease without esophagitis Discontinued simvastatin Discontinued Reason: Doctor's Order 20 mg PO DAILY 30 days 30 tabs 1RF E78.00 - Pure hypercholesterolemia, unspecified lisinopril Discontinued Reason: Doctor's Order 10 mg PO DAILY 90 days 90 tabs 1RF I10 - Essential (primary) hypertension Coding Level of Care Code Est Pt Level 4 (77197) Diagnoses Primary hypertension I10 Hypertension type: primary hypertension Hypercalcemia E83.52 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
[2023-01-31 09:27] VITALS: BP 140/92; PULSE 95; RESP 16; O2SAT 98; BMI 22.9
== END 2023-01-31 10:13 | disposition home or self-care (01) ==
PROVIDERS: PCP Physician Assistant; Visit Provider Physician Assistant
DX: I10 Essential (primary) hypertension (principal); E83.52 Hypercalcemia; E03.8 Other specified hypothyroidism; E06.3 Autoimmune thyroiditis; E78.00 Pure hypercholesterolemia, unspecified; R73.9 Hyperglycemia, unspecified; K21.9 Gastro-esophageal reflux disease without esophagitis; R07.81 Pleurodynia
CPT/HCPCS: 99214

== ENCOUNTER 2023-01-31 10:19 | Outpatient (REF) | payer OTHER, SELFPAY ==
[2023-01-31 11:45] LABS: Hematocrit 42.3 % (37.0-47.0); Hemoglobin 14.3 g/dl (12.0-16.0); Mean Corpuscular HGB Conc 33.8 g/dl (31.0-35.0); Mean Corpuscular Hemoglobin 29.4 pg (27.0-33.0); Mean Corpuscular Volume 86.9 fL (80.0-98.0); Mean Platelet Volume 9.7 fL (9.4-12.3); Platelet Count 271 X10*3/uL (160-400); Red Blood Count 4.87 X10*6/uL (4.20-5.50); Red Cell Distribution Width 12.4 % (11.0-16.0); White Blood Count 5.9 X10*3/uL (4.8-10.8)
[2023-01-31 12:08] LABS: Iron 71 mcg/dL (30-160); Percent Iron Saturation 27 % (15-50); Total Iron Binding Capacity 263 mcg/dL (228-428); Unsaturated Iron Binding 192 ug/dL
[2023-02-01 10:48] LABS: Calcium (PTHI) 9.7 mg/dL (8.6-10.4); PTHI 45 pg/mL (16-77)
== END 2023-01-31 10:20 | disposition home or self-care (01) ==
LOC: HO.XRAY 10:19
PROVIDERS: PCP Physician Assistant; Visit Provider Physician Assistant
DX: R07.81 Pleurodynia (principal); K21.9 Gastro-esophageal reflux disease without esophagitis; M79.10 Myalgia, unspecified site; D50.9 Iron deficiency anemia, unspecified; E83.51 Hypocalcemia
CPT/HCPCS: 36415; 71046; 82550; 83540; 83970; 85027

== ENCOUNTER 2023-03-12 06:54 | Outpatient (REF) | payer OTHER, SELFPAY ==
[2023-03-12 08:09] LABS: Cholesterol 348 mg/dL (<200); HDL Cholesterol 54 mg/dL (>40); LDL Cholesterol Calculated 268 mg/dL (<100); Triglycerides 133 mg/dL (<150)
== END 2023-03-12 06:55 | disposition home or self-care (01) ==
LOC: HO.LAB 06:54
PROVIDERS: PCP Physician Assistant; Visit Provider Physician Assistant
DX: E78.00 Pure hypercholesterolemia, unspecified (principal)
CPT/HCPCS: 36415; 80061

== ENCOUNTER 2023-03-13 11:41 | Outpatient (AMB) | payer OTHER, SELFPAY ==
[2023-03-13 11:44] VITALS: BP 120/90; PULSE 96; O2SAT 100; BMI 22.8
--- NOTE | 2023-03-13 11:44 | A.OFFPC_ITS ---
Vital Signs 03/13/23 11:44 Height 5 ft 5 in Weight 137 lb BMI 22.8 BP 120/90 H Blood Pressure Location Lt brachial Position Sitting Pulse 96 Pulse Source Pulse Oximeter Pulse Oximetry (%) 100 Oxygen Delivery Method Room Air Intake Visit Reasons: f/u labs/ GERD Intake Note: Pt needs prior approval Croze Cutter Required: No Accompanied by: Self / Same As Patient Allergies amoxicillin [From AUGMENTIN] Allergy (Severe, Verified 03/13/23 12:03) Anaphylaxis clavulanic acid [From AUGMENTIN] Allergy (Severe, Verified 03/13/23 12:03) Anaphylaxis ketorolac [From Toradol] Allergy (Unknown, Verified 03/13/23 12:03) Anaphylaxis prochlorperazine [From COMPAZINE] Allergy (Unknown, Verified 03/13/23 12:03) INVOLUNTARY SPASMS Medication List - Last Reconciled 03/13/23 by Leonardo Perez PA-C acetaminophen-codeine 300-30 mg 1 tab PO BEDTIME 7 days aspirin 81 mg PO DAILY cholecalciferol (vitamin D3) 125 mcg PO DAILY levothyroxine 88 mcg PO DAILY 30 days lisinopril 20 mg PO DAILY 30 days miscellaneous medical supply (Blood Pressure Cuff) As directed sucralfate (Carafate) 10 mL PO BID 30 days Tobacco use date assessed: 08/22/22 Dental Screening Dental Screen Date: 03/13/23 Did you have a dental visit in the last 12 months?: No Did you have a dental problem in the last 6 months where you did not have access to dental care?: No Was dental information given to patient?: Patient has dentist HPI f/u labs/ GERD HPI Details Patient is a 52-year-old female here today for a follow-up visit. Patient's past medical history significant for hypertension, hyperlipidemia, hypothyr oidism generalized anxiety disorder. Concern--> continues to have mid lower back pain worse when standing or bending at the waist. She reports the pain is worse when taking a deep breath. Also continues to have SI joint pain as well. X-ray of her chest was normal. She has been using Tylenol No. 3 with good effect on her pain. She is interested in seeing a back specialist for evaluation as well. .. Hyperlipidemia: Most recent labs showing very elevated total cholesterol and LDL. She has been tried on statin therapy though had side effects that were intolerable. She reports she feels much better now being off of statin therapy. She reports she has stopped using decaf coffee and feels that this may be contributing to her elevations in her cholesterol. .. Hypothyroidism: Most recent TSH stable recently. She continues on levothyroxine 88 mcg. She is concerned she continues to have a thyroid issue. She does report having some lower neck swelling from time to time which she att ributes to a thyroid condition. .. Hypertension: Patient's blood pressure acceptable today in office. Laboratory Tests 01/29/23 01/29/23 01/31/23 07:26 07:26 10:38 RBC 4.87 Total Creatine Kin ase Cholesterol 281 H LDL Cholesterol, C alc 194 H TSH 1.17 01/31/23 03/12/23 03/12/23 10:38 06:59 06:59 RBC Total Creatine Kin ase 176 H Cholesterol 348 H LDL Cholesterol, C alc 268 H TSH PFSH Medical History COPD (chronic obstructive pulmonary disease) Dysphagia Elevated cholesterol Family history of colon cancer Family history of pancreatic cancer Fever of unknown origin History of cervical cancer HTN (hypertension) Hypothyroidism (~1999) Near syncope Nicotine dependence, cigarettes, uncomplicated Pelvic pain Unintentional weight loss Vitamin D deficiency Surgical History History of endometrial ablation History of tonsillectomy (~1976) History of History of throat surgery (~2011) Family History Mother Alzheimer's dementia CVD (cardiovascular disease) Maternal Grandfather Pancreatic cancer Social History Household Members: Children Household Members Other:: lives at home with 20-year-old daughter Housing: Apartment Do you presently have visiting nurse or other home services: No Alcohol intake: never Patient Tobacco Use Status: Current everyday Tobacco user Tobacco use type: Cigarette Cigarette Packs Per Day: 0.5 Cigarettes Per Day: 5 Years Smoked: (onset 11, 1ppd x 40yrs, now 1/4ppd, 40pyh) e-Cigarette/Vaping Use: Never Used Second Hand Smoke Exposure: Yes Substance Use Type: Marijuana service: No Current occupational status: disabled Cognitive needs: No Hearing needs: No Vision needs: No Female Reproductive History Menstrual Age of Menarche: 11 Questionnaire Thrive Questionnaire Date Thrive assessed: 08/22/22 STONE-7 AMB Questionnaire STONE-7 Date STONE - 7 assessed: 08/22/22 Source: Developed by Drs. 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 Review of Systems Const Denies headache(s) Eyes Denies loss of vision ENT Denies vertigo, Denies dizziness, Denies headache(s) and Denies sore throat Card Denies chest pain, Denies leg edema and Denies lightheadedness Resp Denies cough, Denies hemoptysis and Denies wheezing GI Denies abdominal pain, Denies melena, Denies constipation, Denies diarrhea and Denies vomiting Denies urinary frequency, Denies dysuria and Denies urinary urgency Musc Details: + pain mid and lower back Reports back pain, Denies arthralgias, Denies joint swelling, Denies numbness and Denies tingling Neuro Denies Abnormal speech present, Denies behavioral changes, Denies vertigo, Denies dizziness, Denies headache(s), Denies loss of vision, Denies memory loss, Denies numbness and Denies tingling Psych Denies anxiety, Denies behavioral changes, Denies depression, Denies memory loss and Denies panic attacks Lawrence/Lymph Denies easy bleeding and Denies easy bruising Aller/Immun Denies wheezing Physical exam (Primary Care) Vital Signs: Last Vital Signs Pulse 96 03/13/23 11:44 BP 120/90 H 03/13/23 11:44 Pulse Ox 100 03/13/23 11:44 Oxygen Delivery Method Room Air 03/13/23 11:44 BMI result Body Mass Index 22.8 Tobacco/Smoking Status: Tobacco use Status Tobacco use date assessed 08/22/22 03/13/23 11:47 Patient Tobacco Use Status Current everyday Tobacco 03/13/23 11:47 Tobacco use type Cigarette 03/13/23 11:47 e-Cigarette/Vaping Use Never Used 03/13/23 11:47 Thrive Assessment: Date of Thrive Assessment Date Thrive assessed 08/22/22 03/13/23 11:47 Const General: healthy appearing, no acute distress, alert and awake Nutritional Appearance: well nourished Orientation/consciousness: oriented to person, oriented to place and oriented to time HENMT Ears: TM's normal bilaterally General nose exam: Normal nasal mucous membranes and turbinates present Eyes Conjunctivae: conjunctivae normal Sclerae: sclerae normal Pupils: Equal, round and reactive pupils present Neck Neck: Yes no lymphadenopathy and Yes no JVD Thyroid: Thyroid normal Carotids: no bruits Resp Effort & Inspection: normal respiratory effort and not tachypneic Auscultation: no crackles, no rales, no rhonchi and no wheezes Cardio Rate: regular rate Rhythm: regular rhythm Heart sounds: no murmurs and normal S1 and S2 GI Palpation (GI): Soft to palpation, nontender, no hepatomegaly and no splenomegaly Auscultation: normal bowel sounds Skin General skin exam: no rashes or lesions noted and dry skin Neuro General: oriented to person, oriented to place and oriented to time Cranial nerves: Yes Equal, round and reactive pupils present Speech: No Abnormal speech present Gait exam (Neuro): Normal gait present Motor exam (neuro): no tremor noted Extrem Right upper extremity: full ROM Left upper extremity: full ROM Right lower extremity: full ROM; no edema Left lower extremity: full ROM; no edema Psych Mental Status: mental status grossly normal Speech and movement: Normal speech and movement present Affect: normal affect Attitude: cooperative Thought process: Normal thought process present Assessment and Plan Assessment & Plan (1) Thyromegaly: Code(s): E01.0 - Iodine-deficiency related diffuse (endemic) goiter Plan: Patient reports intermittent feeling of fullness in her anterior neck. She attributes this to a thyroid issue. Did get diagnosed last remote does many years ago. Continues on levothyroxine. Will send for ultrasound for evaluation of thyroid nodules or thyroid inflammation. (2) High cholesterol: Code(s): E78.00 - Pure hypercholesterolemia, unspecified Plan: Patient's total cholesterol LDL very elevated. Has been unable to tolerate statin therapy Unclear etiology at this time. ? Related to her -endocrine- thyroid issue. She has stopped drinking her decaf coffee. 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 Will continue her on her current dose of antihypertensive medication with goal blood pressure to remain below 140/90 (5) Thoracic radiculitis: Code(s): M54.14 - Radiculopathy, thoracic region Plan: Patient continues with a 6 week history of thoracic spine pain. She reports her pain is worse with bending at the waist and standing for long periods of time. Currently using Tylenol 3 with good effect on reducing her pain temporarily. She is willing to try muscle relaxer at night as well. X-ray of chest without any findings. Will get dedicated thoracic x-rays and CT of thoracic spine (6) SI (sacroiliac) pain: Code(s): M53.3 - Sacrococcygeal disorders, not elsewhere classified Orders: Orders Lipid Panel 03/13/23 E78.00 - Pure hypercholesterolemia, unspecified Comprehensive [place]. Panel Fast 03/13/23 E78.00 - Pure hypercholesterolemia, unspecified XR thoracic spine 3V 03/13/23 M54.14 - Radiculopathy, thoracic region XR pelvis 1-2V 03/13/23 M53.3 - Sacrococcygeal disorders, not elsewhere classified US thyroid 03/13/23 E01.0 - Iodine-deficiency related diffuse (endemic) goiter Lipase 03/13/23 K86.1 - Other chronic pancreatitis CT thoracic spine wo IV con 03/13/23 M54.14 - Radiculopathy, thoracic region Referrals Orthopedics Referral M54.14 - Radiculopathy, thoracic region Medications: New cyclobenzaprine 10 mg PO BEDTIME 14 days 14 tabs 0RF M54.14 - Radiculopathy, thoracic region Changed From acetaminophen-codeine 300-30 mg 1 tab PO BEDTIME 7 days 7 tabs 1RF pain R10.2 - Pelvic and perineal pain To acetaminophen-codeine 300-30 mg 1 tab PO BEDTIME 14 days 14 tabs 1RF pain R10.2 - Pelvic and perineal pain From acetaminophen-codeine 300-30 mg 1 tab PO BEDTIME 14 days 14 tabs 1RF pain M54.14 - Radiculopathy, thoracic region To acetaminophen-codeine 300-30 mg 1 tab PO BID 14 days 28 tabs 1RF pain M54.14 - Radiculopathy, thoracic region Coding Level of Care Code Est Pt Level 4 (49453) Diagnoses Thyromegaly E01.0 High cholesterol E78.00 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
== END 2023-03-13 12:32 | disposition home or self-care (01) ==
PROVIDERS: PCP Physician Assistant; Visit Provider Physician Assistant
DX: E01.0 Iodine-deficiency related diffuse (endemic) goiter (principal); E78.00 Pure hypercholesterolemia, unspecified; E06.3 Autoimmune thyroiditis; I10 Essential (primary) hypertension; M54.14 Radiculopathy, thoracic region; M53.3 Sacrococcygeal disorders, not elsewhere classified
CPT/HCPCS: 99214

== ENCOUNTER 2023-04-18 07:19 | Outpatient (REF) | payer OTHER, SELFPAY ==
--- NOTE | ~2023-04-18 | XR_ITS ---
Examination: Pelvis and thoracic spine. CLINICAL HISTORY: Sacrococcygeal disorder and radiculopathy thoracic region. COMPARISON: CT thoracic spine 04/18/2023. FINDINGS: Thoracic spine: There is normal thoracic kyphosis. There is minimal dextroscoliosis. The vertebral heights, alignment and disc heights are normal. No aggressive lytic or sclerotic process seen. The paravertebral soft tissues are normal. Pelvis: There is mild bilateral L4-L5 facet joint arthropathy. There is normal symmetry of bilateral hip joints and SI joints. No visible fracture or dislocation seen. The pelvic bones are normal. The soft tissues are normal. XR/XR pelvis 1-2V IMPRESSION: 1. Mild dextroscoliosis of thoracic spine. No visible acute fracture or dislocation seen. 2. Mild bilateral L4-L5 facet joint arthropathy. No visible acute fracture or dislocation seen.
--- NOTE | ~2023-04-18 | XR_ITS ---
Examination: Pelvis and thoracic spine. CLINICAL HISTORY: Sacrococcygeal disorder and radiculopathy thoracic region. COMPARISON: CT thoracic spine 04/18/2023. FINDINGS: Thoracic spine: There is normal thoracic kyphosis. There is minimal dextroscoliosis. The vertebral heights, alignment and disc heights are normal. No aggressive lytic or sclerotic process seen. The paravertebral soft tissues are normal. Pelvis: There is mild bilateral L4-L5 facet joint arthropathy. There is normal symmetry of bilateral hip joints and SI joints. No visible fracture or dislocation seen. The pelvic bones are normal. The soft tissues are normal. XR/XR thoracic spine 3V IMPRESSION: 1. Mild dextroscoliosis of thoracic spine. No visible acute fracture or dislocation seen. 2. Mild bilateral L4-L5 facet joint arthropathy. No visible acute fracture or dislocation seen.
--- NOTE | ~2023-04-18 | CT_ITS ---
EXAMINATION: CT THORACIC SPINE WITHOUT CONTRAST CLINICAL INFORMATION: Radiculopathy COMPARISON: None available. TECHNIQUE: CT images of the thoracic spine were acquired without intravenous contrast. This CT examination was performed using dose optimization techniques as appropriate, variously including the following: *Automated exposure control *Adjustment of mA and/or kV according to patient size (this includes techniques or standardized protocols for targeted exams where dose is matched to indication/reason for exam; i.e. extremities or head) *Use of iterative reconstruction technique DLP: 529 mGy-cm FINDINGS: The normal thoracic kyphosis is preserved. No significant spondylolisthesis. Thoracic vertebral body heights are maintained. Diffuse osteopenia. No expansile or destructive osseous lesion. No significant spinal canal stenosis within the constraints of exam technique. There is moderate left neural foraminal stenosis at T7-T8 with additional mild to moderate neural foraminal stenoses in the thoracic spine. Emphysematous changes in the bilateral lung razo. Subpleural scarring in the right lower lobe. Continued follow-up per recommendations on prior lung screening CT. Coronary artery atherosclerotic calcification. CT/CT thoracic spine wo IV con IMPRESSION: No significant spinal canal stenosis within the constraints of exam technique. Moderate left neural foraminal stenosis at T7-T8 with additional mild to moderate neural foraminal stenoses in the mid thoracic spine. Scarring in the right lower lobe. Continued attention on follow-up per prior lung screening CT recommendations.
--- NOTE | ~2023-04-18 | US_ITS ---
EXAMINATION: US THYROID CLINICAL INFORMATION: Jstofm-szqxzvdsne-wqojyvi diffuse (endemic) goiter. COMPARISON: Ultrasound soft tissue head/neck thyroid dated 10/10/2019. TECHNIQUE: Linear transducer grayscale and color Doppler examination with attention to the region of the thyroid. FINDINGS: SIZE: Measurements of the thyroid lobes and nodules are given in sagittal, anteroposterior and transverse dimensions respectively. Right Thyroid Lobe: 2.6 x 0.9 x 0.7 cm, volume 0.9 mL. Previously 3.1 x 1.3 x 1.0 cm, volume 2.1 mL. Parenchyma: The gland echotexture is heterogeneous. Thyroid vascularity is normal. Left Thyroid Lobe: 2.1 x 0.5 x 0.5 cm, volume 0.3 mL. Previously 2.0 x 0.7 x 0.9 cm, volume 0.7 mL. Parenchyma: The gland echotexture is heterogeneous. Thyroid vascularity is normal. Isthmus: 0.1 cm in maximum AP dimension. Previously 0.3 cm. No focal thyroid nodule is seen. NODES: No lymphadenopathy is seen in the tissue surrounding the thyroid gland. US/US thyroid IMPRESSION: 1. No significant interval change in size of the thyroid gland. 2. No discrete nodule could be seen in the thyroid gland.. ACR TI-RADS RECOMMENDATION REFERENCE: Ultrasound-guided fine-needle aspiration, follow up ultrasound, no further followup. * TR1 (0 point) and TR2 (2 points): No FNA or followup * TR3 (3 points): FNA if more than or equal to 2.5 cm in maximum dimension, follow up ultrasound in 1, 3 and 5 years if 1.5 to 2.4 cm in maximum dimension. * TR4 (4-6 points): FNA if more than or equal to 1.5 cm in maximum dimension, follow up ultrasound in 1, 2, 3 and 5 years if 1 to 1.4 cm in maximum dimension. * TR5 (more than or equal to 7 points): FNA if more than or equal to 1 cm in maximum dimension, follow up ultrasound every year for 5 years if 0.5 to 0.9 cm in maximum dimension. * TR3, TR4 or TR5 nodules that are below the size threshold for follow up receive no followup.
== END 2023-04-18 07:20 | disposition home or self-care (01) ==
LOC: HO.CT 07:19
PROVIDERS: PCP Physician Assistant; Visit Provider Physician Assistant
DX: M54.14 Radiculopathy, thoracic region (principal); M53.3 Sacrococcygeal disorders, not elsewhere classified; E01.0 Iodine-deficiency related diffuse (endemic) goiter
CPT/HCPCS: 72072; 72128; 72170; 76536

== ENCOUNTER 2023-04-19 19:43 | Emergency (ER) | payer OTHER, SELFPAY ==
[2023-04-19] VITALS (7 sets, daily range): BP systolic 150–185; BP diastolic 11–130; PULSE 73–100; RESP 16–17; TEMP 36.4; O2SAT 96–100; BMI 25.7
--- NOTE | 2023-04-19 20:00 | ED_ITS ---
HPI - Abdominal Pain General Chief Complaint: Abdominal Pain Stated Complaint: ABD PAIN Time Seen by Provider: 04/19/23 19:49 Source: patient Mode of arrival: ambulatory Limitations: no limitations History of Present Illness HPI narrative: Patient with chronic abdominal pain more than 2 years from acute on chronic pancreatitis due to high triglyceride been followed by Gastroenterology also had diagnosis of IBS with anxiety had multiple CT scans and multiple GI studies comes here for similar pain having yellow stool a nausea no vomiting no fever Related Data Home Medications Medication Instructions Recorded Confirmed aspirin 81 mg tablet,delayed 81 mg PO DAILY 08/28/22 03/13/23 release Previous Rx's Medication Instructions Recorded miscellaneous medical supply #1 ea 12/28/21 (Blood Pressure Cuff) cholecalciferol (vitamin D3) 125 125 mcg PO DAILY #30 caps 06/20/22 mcg (5,000 unit) capsule sucralfate 100 mg/mL oral 10 ml PO BID 30 days #600 mL 01/31/23 suspension (Carafate) levothyroxine 88 mcg tablet 88 mcg PO DAILY 30 days #30 tabs 02/26/23 cyclobenzaprine 10 mg tablet 10 mg PO BEDTIME 14 days #14 tabs 03/13/23 lisinopril 20 mg tablet 20 mg PO DAILY 30 days #30 tabs 03/26/23 acetaminophen 300 mg-codeine 30 mg 1 tab PO BID pain 14 days #28 tabs 04/12/23 tablet dicyclomine 20 mg tablet 20 mg PO QID PRN abdominal pain 04/19/23 #20 tabs Allergies Allergy/AdvReac Type Severity Reaction Status Date / Time amoxicillin [From AUGMENTIN] Allergy Severe Anaphylaxis Verified 04/19/23 19:49 clavulanic acid Allergy Severe Anaphylaxis Verified 04/19/23 19:49 [From AUGMENTIN] ketorolac [From Toradol] Allergy Unknown Anaphylaxis Verified 04/19/23 19:49 prochlorperazine Allergy Unknown INVOLUNTARY Verified 04/19/23 19:49 [From COMPAZINE] SPASMS Review of Systems Review of Systems Yes all other systems are reviewed and are negative [facility] Past Medical History Medical History COPD (chronic obstructive pulmonary disease) Dysphagia Elevated cholesterol Family history of colon cancer Family history of pancreatic cancer Fever of unknown origin History of cervical cancer HTN (hypertension) Hypothyroidism (~1999) Near syncope Nicotine dependence, cigarettes, uncomplicated Pelvic pain Unintentional weight loss Vitamin D deficiency Surgical History History of endometrial ablation History of tonsillectomy (~1976) History of History of throat surgery (~2011) Family History Family History Mother Alzheimer's dementia CVD (cardiovascular disease) Maternal Grandfather Pancreatic cancer Social History Social History Household Members: Children Household Members Other:: lives at home with 20-year-old daughter Housing: Apartment Do you presently have visiting nurse or other home services: No Alcohol intake: never Patient Tobacco Use Status: Current everyday Tobacco user Tobacco use type: Cigarette Cigarette Packs Per Day: 0.5 Cigarettes Per Day: 5 Years Smoked: (onset 11, 1ppd x 40yrs, now 1/4ppd, 40pyh) Smoked in Last 30 Days: No e-Cigarette/Vaping Use: Never Used Second Hand Smoke Exposure: Yes Use of substances other than those prescribed or required for medical reasons: No Substance Use Type: Marijuana Advance Directives: Yes Advance Directives on File: Yes Advance Directives Date on File: 09/11/22 Patient : No service: No Current occupational status: disabled Cognitive needs: No Hearing needs: No Vision needs: No Physical Exam ED Vital Signs: Vital Signs - 24 hr 04/19/23 19:54 04/19/23 19:57 04/19/23 20:47 Temperature 97.5 F Pulse Rate 95 94 Respiratory Rate 16 16 Blood Pressure 168/102 H 174/110 H 164/110 H Pulse Oximetry 100 100 Oxygen Delivery Method Room Air Room Air 04/19/23 21:34 04/19/23 21:35 04/19/23 21:36 Temperature Pulse Rate 91 83 73 Respiratory Rate 17 17 17 Blood Pressure 180/111 H 185/130 H 173/11 H Pulse Oximetry 96 96 96 Oxygen Delivery Method Room Air Room Air Room Air BMI result Body Mass Index 25.7 Appearance: Alert. Oriented X3. No acute distress. Eyes: PERRLA, No Nystagmus no pallor 8 ENT: Pharynx normal. Oral Mucosa moist Neck: Normal inspection. Neck supple. CVS: Normal heart rate and rhythm. Pulses normal. Respiratory: No respiratory distress. Equal air entry bilateral, no wheezing/rales/rhonchi Abdomen: Soft mild diffuse abdominal tenderness no rebound tenderness or guarding Bowel sounds are present, no mass palpable, no CVA tenderness Skin: Skin warm and dry. Normal skin color. Normal skin turgor. Extremities: No lower extremity edema. No calf tenderness Neuro: Oriented X 3. No motor deficit. No sensory deficit.No cerebellar signs , cranial nerves II-XII intact Medical Decision Making Medical Decision Making [facility] Narrative: Patient with chronic abdominal pain with workup negative been followed by multiple MDs including show dog trainer meat clerk release and technical records clerk and psychiatrist was same problem advised to follow-up with PCP patient blood pressure was slightly elevated on arrival improved during stay in the ER Differential Diagnosis Differential Diagnoses: The differential diagnosis associated with the presentation includes IBS/somatization/anxiety Lab Data [facility] Lab Attestation statement: I reviewed the patient's lab results. 04/19/23 20:05 04/19/23 20:05 Labs: Lab Results 04/19/23 04/19/23 Range/Units 20:05 20:16 WBC 6.3 (4.8-10.8) X10*3/uL RBC 4.50 (4.20-5.50) X10*6/uL Hgb 13.4 (12.0-16.0) g/dl Hct 37.2 (37.0-47.0) % MCV 82.7 (80.0-98.0) fL MCH 29.8 (27.0-33.0) pg MCHC 36.0 H (31.0-35.0) g/dl RDW 12.6 (11.0-16.0) % Plt Count 286 (160-400) X10*3/uL MPV 9.1 L (9.4-12.3) fL Immature Gran % (Auto) 0.2 (0.0-0.4) % Neut % (Auto) 46.4 (45-73) % Lymph % (Auto) 45.4 H (20-40) % Divide % (Auto) 6.6 (2-11) % Eos % (Auto) 0.8 (0-4) % Baso % (Auto) 0.6 (0-2) % Lymph # (Auto) 2.9 (1.2-4.9) X10*3/uL Divide # (Auto) 0.4 (0.1-1.2) X10*3/uL Eos # (Auto) 0.1 (0.0-0.4) X10*3/uL Baso # (Auto) 0.0 (0.0-0.2) X10*3/uL Abs Immat Gran (auto) 0.01 (0.00-0.03) X10*3/uL Absolute Neuts (auto) 2.9 (2.0-8.3) x10*3/uL Absolute Nucleated RBC 0.000 (0.0-0.012) X10*3/uL Nucleated RBC % (auto) 0.0 (0.0-0.2) /100WBC Sodium 137 (135-145) mmol/L Potassium 3.7 (3.3-5.1) mmol/L Chloride 104 (96-108) mmol/L Carbon Dioxide 21 L (22-29) mmol/L Anion Gap 16 (12-20) BUN 8 L (9-16) mg/dL Creatinine 0.81 (0.5-1.4) mg/dL Estim Creat Clear Calc 70.5 Estimated GFR > 60 Random Glucose 126 H (60-115) mg/dL Calcium 9.5 D (8.4-10.2) mg/dL Total Bilirubin 0.4 (0.0-1.0) mg/dL Direct Bilirubin 0.2 (0.0-0.5) mg/dL AST 22 (5-31) U/L ALT 31 (0-31) U/L Alkaline Phosphatase 47 (39-117) U/L Troponin I High Sens < 2.7 (<3.5-17.0) ng/L Total Protein 7.4 (6.5-8.0) g/dL Albumin 4.4 (3.5-5.0) g/dL Lipase 36 (8-78) U/L Urine Color Yellow Urine Appearance Clear Urine pH 7.0 (5.0-9.0) Ur Specific [place] <= 1.005 (1.005-1.025) Urine Protein Negative (Neg-Trace) mg/dL Urine Glucose (UA) Negative (Negative) mg/dL Urine Ketones Negative (Negative) mg/dL Urine Blood Negative (Negative) Urine Nitrite Negative (Negative) Ur Leukocyte Esterase Trace H (Negative) Urine RBC 0-2 (0-2) /HPF Urine WBC 0-5 (0-5) /HPF Ur Squamous Epith Cells 0-2 (0-2) /HPF Urine Bacteria None Seen (None Seen) Hyaline Casts 0-2 (0-2) /LPF Urine Test NEGATIVE (NEGATIVE) Medications Administered Discontinued Medications Generic Name Dose Route Start Last Admin Trade Name Freq PRN Reason Stop Dose Admin Dicyclomine HCl 20 mg 04/19/23 20:48 04/19/23 21:03 Dicyclomine Hcl 10 Mg Capsule PO 04/19/23 20:49 20 mg ONCE ONE Administration Morphine Sulfate 4 mg 04/19/23 20:49 04/19/23 21:03 Morphine Sulfate 4 Mg/Ml Cartridge IVPUSH 04/19/23 20:50 4 mg ONCE ONE Administration Protocol Ondansetron HCl 4 mg 04/19/23 20:49 04/19/23 21:03 Ondansetron Hcl 4 Mg/2 Ml Vial IVPUSH 04/19/23 20:50 4 mg ONCE ONE Administration Discharge Plan Discharge Clinical Impression: Abdominal pain, chronic, generalized, Hypertension Patient Disposition: Home, Self-Care Instructions: Chronic Hypertension (ED), Chronic Abdominal Pain (ED) Additional Instructions: Likely your pain is from irritable bowels disease Follow-up with release and technical records clerk Alyssa 1 tab every 6 hours as needed for pain Check blood pressure daily take blood pressure medication follow with PCP/show dog trainer Prescriptions: New dicyclomine 20 mg tablet 20 mg PO QID PRN (Reason: abdominal pain) Qty: 20 0RF No Action cholecalciferol (vitamin D3) 125 mcg (5,000 unit) capsule 125 mcg PO DAILY Qty: 30 5RF levothyroxine 88 mcg tablet 88 mcg PO DAILY 30 Days Qty: 30 1RF lisinopril 20 mg tablet 20 mg PO DAILY 30 Days Qty: 30 1RF acetaminophen-codeine 300-30 mg tablet 1 tab PO BID 14 Days Qty: 28 2RF (DME) Blood Pressure Cuff Misc See Rx Instructions .ROUTE .MEDSUPPLY Qty: 1 0RF Rx Instructions: As directed sucralfate [Carafate] 100 mg/mL suspension 10 ml PO BID 30 Days Qty: 600 2RF cyclobenzaprine 10 mg tablet 10 mg PO BEDTIME 14 Days Qty: 14 0RF aspirin 81 mg tablet,delayed release (DR/EC) 81 mg PO DAILY Interventions: ED Discharge Assessment Last Done: 04/19/23 22:05 Discharge Date/Time: 04/19/23 22:05
[2023-04-19 20:11] LABS: MANUAL DIFF FLAG NO
[2023-04-19 20:12] LABS: Basophils Percent Auto 0.6 % (0-2); Eosinophils Absolute Auto 0.1 X10*3/uL (0.0-0.4); Eosinophils Percent Auto 0.8 % (0-4); Hematocrit 37.2 % (37.0-47.0); Hemoglobin 13.4 g/dl (12.0-16.0); Imm Gran Abs Auto 0.01 X10*3/uL (0.00-0.03); Imm Gran Pct Auto 0.2 % (0.0-0.4); Lymphocytes Absolute Auto 2.9 X10*3/uL (1.2-4.9); Lymphocytes Percent Auto 45.4 % (20-40); Mean Corpuscular Hemoglobin 29.8 pg (27.0-33.0); Mean Corpuscular Volume 82.7 fL (80.0-98.0); Mean Platelet Volume 9.1 fL (9.4-12.3); Monocytes Absolute Auto 0.4 X10*3/uL (0.1-1.2); Monocytes Percent Auto 6.6 % (2-11); Neutrophils Absolute Auto 2.9 x10*3/uL (2.0-8.3); Neutrophils Percent Auto 46.4 % (45-73); Platelet Count 286 X10*3/uL (160-400); Red Cell Distribution Width 12.6 % (11.0-16.0); White Blood Count 6.3 X10*3/uL (4.8-10.8)
[2023-04-19 20:28] LABS: Alanine Aminotransferase 31 U/L (0-31); Albumin Level 4.4 g/dL (3.5-5.0); Alkaline Phosphatase 47 U/L (39-117); Anion Gap 16 (12-20); Aspartate Amino Transferase 22 U/L (5-31); Bilirubin Direct 0.2 mg/dL (0.0-0.5); Bilirubin Total 0.4 mg/dL (0.0-1.0); Blood Urea Nitrogen 8 mg/dL (9-16); Calcium 9.5 mg/dL (8.4-10.2); Carbon Dioxide 21 mmol/L (22-29); Chloride 104 mmol/L (96-108); Creatinine Clr Calc Pharmacy 70.5; Estimated Glomerular Filt Rate > 60; Glucose Random 126 mg/dL (60-115); Lipase 36 U/L (8-78); Potassium 3.7 mmol/L (3.3-5.1); Sodium 137 mmol/L (135-145); Total Protein 7.4 g/dL (6.5-8.0)
[2023-04-19 20:33] LABS: Appearance Urine Clear; Color Urine Yellow; Glucose Urine UA Negative (Negative); Leukocyte Esterase Urine Trace (Negative); Nitrite Urine Negative (Negative); Specific Gravity - Urine <= 1.005 (1.005-1.025); UMIC TRIGGER UACC YES; Urine Blood Negative (Negative); Urine Ketones Negative (Negative); Urine Protein Negative (Neg-Trace)
[2023-04-19 20:36] LABS: Troponin-I High Sensitivity < 2.7 ng/L (<3.5-17.0)
[2023-04-19 20:37] LABS: UPreg QC Valid YES; Urine Pregnancy NEGATIVE (NEGATIVE)
[2023-04-19 20:44] LABS: Bacteria Urine None Seen (None Seen); Hyaline Casts Urine 0-2 /LPF (0-2); RBC Urine 0-2 /HPF (0-2); Squamous Epithelial Cell Urine 0-2 /HPF (0-2); WBC Urine 0-5 /HPF (0-5)
--- NOTE | 2023-04-19 20:47 | PC.NURSE ---
a&ox4, vss and up to date besides being hypertensive. pt comes in today d/t intermittent epigastric/LUQ pain x 3 years. pt also c/o nausea/vomiting/yellow stool/jaundice roof of mouth. pt states 2 teeth fell out this morning. 20gIV placed in the left AC - labs drawn and sent to lab. urine obtained/sent to lab by tech. pt resting comfortably in no apparent distress. call gillespie placed within reach.
[2023-04-19] MEDS: ondansetron HCL 4 MG/2 ML VIAL IVPUSH (21:03)
[2023-04-19] MEDS: Morphine Sulfate 4 MG/ML CARTRIDGE IVPUSH (21:03)
[2023-04-19] MEDS: Dicyclomine HCl 10 MG CAPSULE 20 MG PO (21:03)
--- NOTE | 2023-04-19 21:06 | PC.NURSE ---
medication administered by provider.
== END 2023-04-19 22:05 | disposition home or self-care (01) ==
PROVIDERS: Emergency Provider Internal Medicine; PCP Physician Assistant
DX: K58.9 Irritable bowel syndrome, unspecified (principal); R10.13 Epigastric pain; I10 Essential (primary) hypertension; F17.210 Nicotine dependence, cigarettes, uncomplicated; Z71.6 Tobacco abuse counseling; Z79.899 Other long term (current) drug therapy
CPT/HCPCS: 36415; 80053; 81001; 81025; 82248; 83690; 84484; 85025; 96374; 96375; 99284; J2270; J2405

== ENCOUNTER 2023-05-01 10:45 | Outpatient (REF) | payer OTHER, SELFPAY ==
[2023-05-01 12:19] LABS: Appearance Urine Clear; Color Urine Yellow; Glucose Urine UA Negative (Negative); Leukocyte Esterase Urine Trace (Negative); Nitrite Urine Negative (Negative); PH 6.5 (5.0-9.0); Specific Gravity - Urine <= 1.005 (1.005-1.025); UMIC TRIGGER UACC YES; Urine Blood Negative (Negative); Urine Ketones Negative (Negative); Urine Protein Negative (Neg-Trace)
[2023-05-01 12:21] LABS: Bacteria Urine None Seen (None Seen); Hyaline Casts Urine 0-2 /LPF (0-2); RBC Urine 0-2 /HPF (0-2); Squamous Epithelial Cell Urine 0-2 /HPF (0-2); WBC Urine 0-5 /HPF (0-5)
[2023-05-01 12:37] LABS: Alanine Aminotransferase 21 U/L (0-31); Albumin Level 4.5 g/dL (3.5-5.0); Alkaline Phosphatase 44 U/L (39-117); Anion Gap 14 (12-20); Aspartate Amino Transferase 17 U/L (5-31); Bilirubin Total 0.5 mg/dL (0.0-1.0); Blood Urea Nitrogen 8 mg/dL (9-16); Calcium 9.6 mg/dL (8.4-10.2); Carbon Dioxide 27 mmol/L (22-29); Chloride 102 mmol/L (96-108); Cholesterol 289 mg/dL (<200); Estimated Glomerular Filt Rate > 60; Glucose Fasting 126 mg/dL (60-99); Glucose Random 126 mg/dL (60-115); HDL Cholesterol 55 mg/dL (>40); LDL Cholesterol Calculated 191 mg/dL (<100); Lipase 61 U/L (8-78); Phosphorus 2.9 mg/dL (2.7-4.5); Potassium 3.7 mmol/L (3.3-5.1); Sodium 139 mmol/L (135-145); Total Protein 7.5 g/dL (6.5-8.0); Triglycerides 216 mg/dL (<150)
[2023-05-01 13:11] LABS: TSH reflex Free T4 9.05 uIU/mL (0.32-4.0)
[2023-05-01 13:34] LABS: Folate 11.4 ng/mL (> or = 4.0); Vitamin B12 544 pg/mL (200-900)
[2023-05-01 13:48] LABS: Free T4 (Free Thyroxine) 1.18 ng/dL (0.71-1.85)
[2023-05-01 14:06] LABS: Amylase 84 U/L (28-100); Cholesterol 296 mg/dL (<200); HDL Cholesterol 57 mg/dL (>40); LDL Cholesterol Calculated 202 mg/dL (<100); Magnesium 1.9 mg/dL (1.6-2.6); Triglycerides 186 mg/dL (<150); Vitamin D 25-OH Total 44.7 ng/mL (>30)
[2023-05-04 19:13] LABS: Vitamin A 49 mcg/dL (38-98)
[2023-05-05 19:12] LABS: Beta-Gamma Tocopherol <1.0 mg/L (<=4.3)
== END 2023-05-01 10:46 | disposition home or self-care (01) ==
LOC: HO.LAB 10:45
PROVIDERS: PCP Physician Assistant; Visit Provider Physician Assistant
DX: K90.9 Intestinal malabsorption, unspecified (principal); R19.7 Diarrhea, unspecified; E83.51 Hypocalcemia; E03.8 Other specified hypothyroidism; E06.3 Autoimmune thyroiditis; E83.39 Other disorders of phosphorus metabolism; E78.00 Pure hypercholesterolemia, unspecified; K86.1 Other chronic pancreatitis; E01.0 Iodine-deficiency related diffuse (endemic) goiter; E53.8 Deficiency of other specified B group vitamins
CPT/HCPCS: 36415; 80048; 80053; 80061; 81001; 82150; 82306; 82607; 82746; 83690; 83735; 84100; 84134; 84439; 84443; 84446; 84590

== ENCOUNTER 2023-05-01 11:05 | Outpatient (AMB) | payer OTHER, SELFPAY ==
--- NOTE | 2023-05-01 11:08 | MHC.PC.OV ---
Vital Signs 05/01/23 11:15 Height 5 ft 2 in Weight 129 lb 8 oz BMI 23.7 BP 126/82 Blood Pressure Location Lt brachial Position Sitting Respiration 17 Pulse 70 Pulse Source Palpation Intake Visit Reasons: f/u HLD/ Thyroid Employment Assistant Required: No Accompanied by: Self / Same As Patient Allergies amoxicillin [From AUGMENTIN] Allergy (Severe, Verified 05/01/23 11:31) Anaphylaxis clavulanic acid [From AUGMENTIN] Allergy (Severe, Verified 05/01/23 11:31) Anaphylaxis ketorolac [From Toradol] Allergy (Unknown, Verified 05/01/23 11:31) Anaphylaxis prochlorperazine [From COMPAZINE] Allergy (Unknown, Verified 05/01/23 11:31) INVOLUNTARY SPASMS Medication List - Last Reconciled 05/01/23 by Leonardo Perez PA-C acetaminophen-codeine 300-30 mg 1 tab PO BID 14 days aspirin 81 mg PO DAILY cholecalciferol (vitamin D3) 125 mcg PO DAILY cyclobenzaprine 10 mg PO BEDTIME 14 days dicyclomine 20 mg PO QID PRN levothyroxine 88 mcg PO DAILY 30 days lisinopril 20 mg PO DAILY 30 days miscellaneous medical supply (Blood Pressure Cuff) As directed sucralfate (Carafate) 10 mL PO BID 30 days Tobacco use date assessed: 05/01/23 Dental Screening Dental Screen Date: 05/01/23 Did you have a dental visit in the last 12 months?: Yes Did you have a dental problem in the last 6 months where you did not have access to dental care?: No Was dental information given to patient?: Patient has dentist HPI f/u HLD/ Thyroid HPI Details Patient is a 52-year-old female here today for an ER follow-up visit. Was seen at [facility] [place] ER for dizziness, abdominal pain and generalized fatigue. Her workup was significant for a low phosphorus and elevated TSH. She was given replacement. Recommendations for phosphorus rich diet made. Of note has had a CT of her abdomen and pelvis in the spring that did show mild colitis/ ?diverticulitis. At this time she is awaiting to get endoscopy and colonoscopy from her GI specialty. Patient is concerned about small intestine bacterial overgrowth syndrome (SIBO). --> has had a 2 year history of abdominal pain, diarrhea, greasy stools, occasional palpitations, abdominal bloating inadequate response to blood pressure medication and thyroid medication. Very bizarre cholesterol readings. Electrolyte abnormalities ect.. PLAN : Will trial antibiotics [facility] Medical History COPD (chronic obstructive pulmonary disease) Dysphagia Elevated cholesterol Family history of colon cancer Family history of pancreatic cancer Fever of unknown origin History of cervical cancer HTN (hypertension) Hypothyroidism (~1999) Near syncope Nicotine dependence, cigarettes, uncomplicated Pelvic pain Unintentional weight loss Vitamin D deficiency Surgical History History of endometrial ablation History of tonsillectomy (~1976) History of History of throat surgery (~2011) Family History Mother Alzheimer's dementia CVD (cardiovascular disease) Maternal Grandfather Pancreatic cancer Social History Household Members: Children Household Members Other:: lives at home with 20-year-old daughter Housing: Apartment Do you presently have visiting nurse or other home services: No Alcohol intake: never Patient Tobacco Use Status: Current everyday Tobacco user Tobacco use type: Cigarette Cigarette Packs Per Day: 0.5 Cigarettes Per Day: 5 Years Smoked: (onset 11, 1ppd x 40yrs, now 1/4ppd, 40pyh) e-Cigarette/Vaping Use: Never Used Second Hand Smoke Exposure: Yes Substance Use Type: Marijuana Advance Directives Date on File: 09/11/22 service: No Current occupational status: disabled Cognitive needs: No Hearing needs: No Vision needs: No Female Reproductive History Menstrual Age of Menarche: 11 Questionnaire PHQ-9 Over the last 2 weeks, how often have you been bothered by any of the following problems? 1. Little interest or pleasure in doing things: not at all 2. Feeling down, depressed, or hopeless: not at all 3. Trouble falling or staying asleep, or sleeping too much: not at all 4. Feeling tired or having little energy: not at all 5. Poor appetite or overeating: not at all 6. Feeling bad about yourself - or that you are a failure or have let yourself or your family down: not at all 7. Trouble concentrating on things, such as reading the newspaper or watching television: not at all 8. Moving or speaking so slowly that other people could have noticed. Or the opposite - being so fidgety or restless that you have been moving around a lot more than usual: not at all 9. Thoughts that you would be better off or of hurting yourself in some way: not at all Total score: 0 Depression Screening Interpretation: Negative Depression Screening Done: Yes 98104 - PHQ-9 Billing: Yes Source: Developed by Drs. 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 Thrive Questionnaire Date Thrive assessed: 05/01/23 I am a: Patient What is your living situation today?: I have a steady place to live Within the past 12 months, did the food you bought not last and you didn't have the money to get more?: Never true Within the past 12 months, did you worry whether your food would run out before you got money to buy more?: Never true Do you have trouble paying for medicines?: No Do you have trouble getting transportation to medical appointments?: No Do you have trouble paying your heating and electricity bill?: No Do you have trouble taking care of your child, family member or friend?: No Do you have trouble with day-to-day activities such as bathing, preparing meals, shopping, managing finances, etc.?: No Are you currently unemployed and looking for a job?: No Are you interested in more education?: No Please select the resources that you would like help with: None Currently or been in a relationship where the following occur: no concerns reported AUDIT C Alcohol Use Questionnaire (AUDIT-C) 1. How often do you have a drink containing alcohol?: Never 3. How often do you have six or more drinks on one occasion?: Never Total Score: 0 STONE-7 AMB Questionnaire STONE-7 Date STONE - 7 assessed: 05/01/23 Feeling nervous, anxious, or on edge: 0 = Not at all Not being able to stop or control worryin = Not at all Worrying too much about different things: 0 = Not at all Trouble relaxin = Not at all Being so restless that it is hard to sit still: 0 = Not at all Becoming easily annoyed or irritable: 0 = Not at all Feeling afraid as if something awful might happen: 0 = Not at all Total STONE-7 score (0-4 normal; 5-9 mild; 10-14 moderate; 15-21 severe): 0 Source: Developed by Drs. 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 STONE-7 Assessment Billing STONE-7 Assessment Tool: STONE-7 Assessment 27745 Review of Systems Const Denies headache(s) Eyes Denies loss of vision ENT Denies vertigo, Denies dizziness, Denies headache(s) and Denies sore throat Card Denies chest pain, Denies leg edema and Denies lightheadedness Resp Denies cough, Denies hemoptysis and Denies wheezing GI Reports bloating, Reports change in stool character, Reports GI cramping, Reports fecal incontinence, Reports diarrhea and Reports loose stools Denies urinary frequency, Denies dysuria and Denies urinary urgency Musc Denies arthralgias, Denies joint swelling, Denies numbness and Denies tingling Neuro Denies Abnormal speech present, Denies behavioral changes, Denies vertigo, Denies dizziness, Denies headache(s), Denies loss of vision, Denies memory loss, Denies numbness and Denies tingling Psych Denies anxiety, Denies behavioral changes, Denies depression, Denies memory loss and Denies panic attacks Lawrence/Lymph Denies easy bleeding and Denies easy bruising Aller/Immun Denies wheezing Physical exam (Primary Care) Vital Signs: Last Vital Signs Pulse 70 05/01/23 11:15 Resp 17 05/01/23 11:15 BP 126/82 05/01/23 11:15 BMI result Body Mass Index 23.7 Tobacco/Smoking Status: Tobacco use Status Tobacco use date assessed 05/01/23 05/01/23 11:26 Patient Tobacco Use Status Current everyday Tobacco 05/01/23 11:08 Tobacco use type Cigarette 05/01/23 11:08 e-Cigarette/Vaping Use Never Used 05/01/23 11:08 PHQ-9: PHQ-9 Score PHQ-9: Total score 0 05/01/23 11:36 Depression Screening Interpretation: Negative Thrive Assessment: Date of Thrive Assessment Date Thrive assessed 05/01/23 05/01/23 11:26 Currently or been in a relationship where the following occur: no concerns reported Const General: healthy appearing, no acute distress, alert and awake Nutritional Appearance: well nourished Orientation/consciousness: oriented to person, oriented to place and oriented to time HENMT Ears: TM's normal bilaterally General nose exam: Normal nasal mucous membranes and turbinates present Eyes Conjunctivae: conjunctivae normal Sclerae: sclerae normal Pupils: Equal, round and reactive pupils present Neck Neck: Yes no lymphadenopathy and Yes no JVD Thyroid: Thyroid normal Carotids: no bruits Resp Effort & Inspection: normal respiratory effort and not tachypneic Auscultation: no crackles, no rales, no rhonchi and no wheezes Cardio Rate: regular rate Rhythm: regular rhythm Heart sounds: no murmurs and normal S1 and S2 GI Palpation (GI): Soft to palpation, nontender, no hepatomegaly and no splenomegaly Auscultation: normal bowel sounds Skin General skin exam: no rashes or lesions noted and dry skin Neuro General: oriented to person, oriented to place and oriented to time Cranial nerves: Yes Equal, round and reactive pupils present Speech: No Abnormal speech present Gait exam (Neuro): Normal gait present Motor exam (neuro): no tremor noted Extrem Right upper extremity: full ROM Left upper extremity: full ROM Right lower extremity: full ROM; no edema Left lower extremity: full ROM; no edema Psych Mental Status: mental status grossly normal Speech and movement: Normal speech and movement present Affect: normal affect Attitude: cooperative Thought process: Normal thought process present Assessment and Plan Assessment & Plan (1) Hypophosphatemia: Code(s): E83.39 - Other disorders of phosphorus metabolism (2) Diarrhea: Code(s): R19.7 - Diarrhea, unspecified Qualifiers: Diarrhea type: due to malabsorption Qualified Code(s): K90.9 - Intestinal malabsorption, unspecified; R19.7 - Diarrhea, unspecified (3) Small intestinal bacterial overgrowth (SIBO): Code(s): K63.8219 - Small intestinal bacterial overgrowth, unspecified Plan: Unclear diagnosis at this time. Clinical symptoms do seem consistent with small intestinal bacterial overgrowth syndrome. Will trial rifaximin to see if symptoms resolve. She will be following up with her gastroenterology specialty in 2 weeks. --> Would need recommendations on long-term treatment Orders: Orders Magnesium Today K90.9 - Intestinal malabsorption, unspecified, R19.7 - Diarrhea, unspecified Amylase Today K90.9 - Intestinal malabsorption, unspecified, R19.7 - Diarrhea, unspecified Vitamin A Today K90.9 - Intestinal malabsorption, unspecified, R19.7 - Diarrhea, unspecified Vitamin D 25-OH Total Today K90.9 - Intestinal malabsorption, unspecified, R19.7 - Diarrhea, unspecified Vitamin E Today K90.9 - Intestinal malabsorption, unspecified, R19.7 - Diarrhea, unspecified Fecal Fat Qualitative Today K63.8219 - Small intestinal bacterial overgrowth, unspecified Medications: New rifaximin 550 mg PO TID 14 days 42 tabs 0RF K63.8219 - Small intestinal bacterial overgrowth, unspecified Coding Level of Care Code Est Pt Level 4 (40542) Diagnoses Hypophosphatemia E83.39 Diarrhea due to malabsorption K90.9; R19.7 Diarrhea type: due to malabsorption Small intestinal bacterial overgrowth (SIBO) K63.8219 Additional Codes STONE-7 Assessment Billing - STONE-7 Assessment Tool: STONE-7 Assessment 45373 ([id number])
[2023-05-01 11:15] VITALS: BP 126/82; PULSE 70; RESP 17; BMI 23.7
== END 2023-05-01 11:56 | disposition home or self-care (01) ==
PROVIDERS: PCP Physician Assistant; Visit Provider Physician Assistant
DX: E83.39 Other disorders of phosphorus metabolism (principal); K90.9 Intestinal malabsorption, unspecified; R19.7 Diarrhea, unspecified; K63.8219 Small intestinal bacterial overgrowth, unspecified
CPT/HCPCS: 99214

== ENCOUNTER 2023-05-15 | Outpatient (REF) | payer OTHER, SELFPAY | END 2023-05-15 00:01 | LOC: CF | PROVIDERS: PCP Physician Assistant; Visit Provider Nurse Practitioner | DX: K58.9 Irritable bowel syndrome, unspecified (principal); R10.9 Unspecified abdominal pain | CPT/HCPCS: 99212 ==

== ENCOUNTER 2023-05-18 07:19 | Inpatient (IN) | payer OTHER, SELFPAY ==
[2023-05-18] VITALS (11 sets, daily range): BP systolic 122–154; BP diastolic 85–99; PULSE 65–120; RESP 16–20; TEMP 35.9–37; O2SAT 96–100; BMI 21.6
--- NOTE | ~2023-05-18 | CT_ITS ---
EXAMINATION: CT ABDOMEN AND PELVIS WITH CONTRAST CLINICAL INFORMATION: Urinary retention. Constipation. COMPARISON: 08/08/2022 and 09/07/2022 TECHNIQUE: Multidetector volumetric images were obtained from the superior aspect of the liver through the pubic symphysis following administration 85 mL of Omnipaque 350 intravenous contrast. Sagittal and coronal reformatted images were obtained on the technologist's workstation. Oral contrast: No This CT examination was performed using dose optimization techniques as appropriate, variously including the following: *Automated exposure control *Adjustment of mA and/or kV according to patient size (this includes techniques or standardized protocols for targeted exams where dose is matched to indication/reason for exam; i.e. extremities or head) *Use of iterative reconstruction technique DLP: 457 mGy-cm FINDINGS: LUNG BASES: Small hiatal hernia. LIVER, GALLBLADDER, AND BILIARY TREE: The liver is normal in size and contour. No suspicious hepatic lesion or biliary ductal dilatation is present. The gallbladder is unremarkable with no evidence of radiopaque gallstones, gallbladder wall thickening, or obvious pericholecystic inflammatory changes. PANCREAS: No ductal dilatation. SPLEEN: Not enlarged. ADRENAL GLANDS: No adrenal mass. KIDNEYS AND URETERS: The kidneys are symmetric in size and enhancement. Indeterminate 1.0 and 1.3 cm lateral midpole right renal hypodensities. These were previously characterized as cysts. No hydronephrosis or perinephric fluid collection. BLADDER: Distended. No bladder wall thickening. GASTROINTESTINAL TRACT: There is rectal wall thickening and mucosal hyperenhancement. There is perirectal stranding. A possible low-attenuation tract arises from the 9:00 position of the anal sphincter extending anteriorly to the perineum where there is a collection measuring 2.2 x 2.3 x 3.7 cm. There is soft tissue thickening within the perineum. There is possible wall thickening of mid small bowel loops in the left abdomen. No surrounding inflammatory changes. No mesenteric lymphadenopathy. No small bowel bowel obstruction. Appendix is within normal limits. Sigmoid diverticulosis. ABDOMINAL WALL: No significant hernia is appreciated. LYMPH NODES: No bulky lymphadenopathy. VASCULAR: Normal caliber abdominal aorta. Marked atherosclerotic vascular calcification of the abdominal aorta and major branch vessels. PELVIC VISCERA: Uterus is atrophic. Focus of gas within the left vaginal fornix. OSSEOUS STRUCTURES: No destructive bone lesion. CT/CT abdomen pelvis w IV con IMPRESSION: Findings suggestive of perianal fistula arising at the 9:00 position of the anal sphincter extending anteriorly to the perineum where there is a collection measuring 2.2 x 2.3 x 3.7 cm possibly representing perianal abscess. Consider MRI pelvis for more sensitive characterization. There is rectal wall thickening and enhancement with perirectal stranding. Possible wall thickening of mid small bowel loops in the and left abdomen. No small bowel obstruction.
--- NOTE | 2023-05-18 08:05 | PC.NURSE ---
Pt reporting she has been constipated for a few days, she has had this struggle in the past, normally she can disimpact herself by going through her vaginal cavity and pushing it out that way, however that was not successful this time. She has been inserting casteroil covered fingers into her rectum and pulling down and out from her rectum. Provider made aware. Pt reporting she has not been able to urinate for 4 hours d/t bulge in vaginal cavity
--- NOTE | 2023-05-18 08:32 | ED.GENADULT ---
HPI - General Adult General Chief complaint: Abdominal Pain Stated complaint: Referred by - fecal impaction Time Seen by Provider: 05/18/23 07:47 Source: patient Mode of arrival: ambulatory History of Present Illness HPI narrative: Patient is a 52-year-old female with history of chronic constipation, hypothyroidism, COPD, HTN, chronic pancreatitis, IBS, Neha-Danlos syndrome presenting emergency department with complaint of constipation for over 2 weeks. Patient reports that she has been disimpacting herself at home using only her finger and castor oil, no other instruments. Has also used Senna without relief. Saw Isidra Cid NP at GI office on 05/15. States she notified the provider of her constipation at that time, but was not having such significant pain at that time. Reports she can typically have a bowel movement by splinting her vaginal wall with her finger, but last night was feeling a bulging sensation into her vaginal wall and was still unable to have a bowel movement. States she has also been unable to urinate for the past 4 hours. Compares her pain to labor. Denies nausea or vomiting. Denies fevers. Does report small amount of bright red blood after attempting disimpaction last night but the feel it was related to direct trauma, denies other hematochezia or melena. Complains of lower abdominal pain. MD complaint: constipation Onset (ago): week(s) Location: abdomen and genitals Severity: severe Severity scale (1-10): >10 Quality: aching Pain Consistency: constant Relieving factors: none Associated symptoms: denies other symptoms Treatments prior to arrival: other Related Data Home Medications Medication Instructions Recorded Confirmed aspirin 81 mg tablet,delayed 81 mg PO DAILY 08/28/22 05/01/23 release acetaminophen 300 mg-codeine 30 mg 1 tab PO BID PRN pain 05/15/23 tablet Previous Rx's Medication Instructions Recorded miscellaneous medical supply #1 ea 12/28/21 (Blood Pressure Cuff) cholecalciferol (vitamin D3) 125 125 mcg PO DAILY #30 caps 06/20/22 mcg (5,000 unit) capsule sucralfate 100 mg/mL oral 10 ml PO BID 30 days #600 mL 01/31/23 suspension (Carafate) dicyclomine 20 mg tablet 20 mg PO QID PRN abdominal pain 04/19/23 #20 tabs levothyroxine 88 mcg tablet 88 mcg PO DAILY 30 days #30 tabs 04/21/23 rifaximin 550 mg tablet 550 mg PO TID 14 days #42 tabs 05/01/23 nirmatrelvir 300 mg (150 mg See Rx Instructions PO .COMPLEX 05/07/23 x2)-ritonavir 100 mg tablet,dose #30 ea pack (Paxlovid) lisinopril 20 mg tablet 20 mg PO DAILY 30 days #30 tabs 05/15/23 Allergies Allergy/AdvReac Type Severity Reaction Status Date / Time amoxicillin [From AUGMENTIN] Allergy Severe Anaphylaxis Verified 05/15/23 10:18 clavulanic acid Allergy Severe Anaphylaxis Verified 05/15/23 10:18 [From AUGMENTIN] banana Allergy Unknown Unknown Verified 05/15/23 10:18 ketorolac [From Toradol] Allergy Unknown Anaphylaxis Verified 05/15/23 10:18 kiwi Allergy Unknown Unknown Verified 05/15/23 10:18 prochlorperazine Allergy Unknown INVOLUNTARY Verified 05/15/23 10:18 [From COMPAZINE] SPASMS Review of Systems Review of Systems: As per HPI. Yes all other systems are reviewed and are negative Constitutional: Constitutional: Reports as per HPI PMF Past Medical History Onset Date is defined in the Problem List Problems that require an onset date and time if occurred within 24 hrs of arrival to the ED Aortic Dissection and Rupture; Neurologic impairment; Cardiopulmonary Arrest; Endotracheal Intubation; Insertion or Replacement of Mechanical Circulatory Assist Device Medical History (Updated 05/18/23 @ 14:58 by Mary Bernard NP) Perineal abscess Diarrhea Pelvic pain Elevated cholesterol Unintentional weight loss Fever of unknown origin History of cervical cancer Family history of colon cancer Nicotine dependence, cigarettes, uncomplicated HTN (hypertension) Near syncope Family history of pancreatic cancer COPD (chronic obstructive pulmonary disease) Dysphagia Vitamin D deficiency Hypothyroidism (~1999) Surgical History History of endometrial ablation History of tonsillectomy (~1976) History of History of throat surgery (~2011) Family History Family History Mother Alzheimer's dementia CVD (cardiovascular disease) Maternal Grandfather Pancreatic cancer Social History Social History Household Members: Children Household Members Other:: lives at home with 20-year-old daughter Housing: Apartment Do you presently have visiting nurse or other home services: No Alcohol intake: never Patient Tobacco Use Status: Current everyday Tobacco user Tobacco use type: Cigarette Cigarette Packs Per Day: 0.5 Cigarettes Per Day: 5 Years Smoked: (onset 11, 1ppd x 40yrs, now 1/4ppd, 40pyh) e-Cigarette/Vaping Use: Never Used Second Hand Smoke Exposure: Yes Substance Use Type: Marijuana Advance Directives Date on File: 09/11/22 service: No Current occupational status: disabled Cognitive needs: No Hearing needs: No Vision needs: No Physical Exam ED Vital Signs: Vital Signs - 24 hr 05/18/23 07:30 Temperature 97.6 F Pulse Rate 120 H Respiratory Rate 16 Blood Pressure 136/91 H Pulse Oximetry 99 Oxygen Delivery Method Room Air BMI result Body Mass Index 21.6 Vital signs have been reviewed and appear to be correct. Blood pressure diastolic elevated. Heart rate tachycardic. Respiratory rate normal. Temperature normal. Oxygen saturation normal. Const General: cooperative, healthy appearing and no acute distress Orientation/consciousness: oriented to person, oriented to place, oriented to time and patient oriented x3 Limitations: no limitations HENMT Head: Yes normocephalic and Yes atraumatic Ears: external ears normal General nose exam: Normal external nose present Face and sinus: Yes face symmetric Mouth: oropharynx normal and moist mucous membranes Throat: Yes uvula midline Eyes Pupils: Equal, round and reactive pupils present Neck Neck: Yes normal visual inspection and Yes supple Resp Effort & Inspection: normal respiratory effort and able to speak in complete sentences Auscultation: clear to auscultation bilaterally Cardio Rate: regular rate Rhythm: regular rhythm Heart sounds: S1 normal heart sound present and S2 normal heart sound present GI Other: Exam chaperoned by YESSICA Del Rio Inspection: Yes normal to inspection Palpation (GI): Soft to palpation, Tenderness to palpation present (GI) suprapubicly, no guarding, not rigid and No Rebound tenderness present Auscultation: normoactive bowel sounds Rectal Exam - Female: visual inspection normal, normal sphincter tone, No heme positive stool, No Rectal prolapse, fecal impaction, No Anal fissure(s) present, No hemorrhoids and tenderness Other: Exam chaperoned by YESSICA Del Rio General: Yes no CVA tenderness Speculum Exam - Vagina: normal vaginal discharge, not erythematous, No vaginal bleeding, tenderness and other (bulging of posterior vaginal wall) OB/external & speculum: No vaginal bleeding Back/Spine/Pelvis Back: no CVA tenderness Skin General skin exam: elasticity normal and turgor normal Neuro General: oriented to person, oriented to place, oriented to time, patient oriented x3, moves all extremities, no focal motor deficits and CN's II-XI intact bilaterally Cranial nerves: Yes Equal, round and reactive pupils present Cognition (Neuro): normal cognition Extrem General: Yes full ROM, Yes no pedal edema and Yes no calf tenderness Psych Mental Status: mental status grossly normal Affect: normal affect Thought process: Normal thought process present Medications Administered Discontinued Medications Generic Name Dose Route Start Last Admin Trade Name Freq PRN Reason Stop Dose Admin Iohexol 85 ml 05/18/23 12:13 05/18/23 12:14 Iohexol 350 Mg/Ml 100 Ml Infus..Btl IV 05/18/23 12:14 85 ml ONCE ONE Administration Medical Decision Making Medical Decision Making MDM Narrative: Patient is a 52-year-old female with history of chronic constipation, hypothyroidism, COPD, HTN, chronic pancreatitis, IBS, Neha-Danlos syndrome presenting emergency department with complaint of constipation for over 2 weeks. On exam patient is awake, A+Ox3, tachycardic, likely secondary to discomfort, VS otherwise WNL, afebrile, normal neurological exam without focal deficits, physical exam findings as above. Given reported symptoms and physical exam findings, initial differential includes constipation, UTI. Unlikely obstruction. Rectal exam notable for impaction. Bedside guaic negative. Will order soapsuds enema and reassess. Will check UA. Patient able to have several large bowel movements after enema and was also able to urinate. 10:35 Patient now reporting she is unable to urinate again. Bladder scan shows >530mLs. Will order CT scan and basic labs. 13:53 CT scan shows findings suggestive of perianal fistula at 9:00 position with collection measuring 2.2x2.3x3.7cm, possibly a perianal abscess. Case discussed with Dr. King who will come to ED for evaluation. Indwelling urinary catheter placed, with immediate drainage of 850mLs urine. 14:11 Patient evaluated bedside by Dr. King who will admit. Differential Diagnosis Differential Diagnoses: The differential diagnosis associated with the presentation includes As per MDM. Consult Healthcare Provider Management of the patient was discussed with: Cigarette Tipper (Dr. King, surgery) Lab Data [facility] Lab Attestation statement: I reviewed the patient's lab results. As per MDM. 05/18/23 10:53 05/18/23 10:53 Labs: Lab Results 05/18/23 05/18/23 Range/Units 10:25 10:53 WBC 12.1 H (4.8-10.8) X10*3/uL RBC 5.02 (4.20-5.50) X10*6/uL Hgb 14.8 (12.0-16.0) g/dl Hct 42.3 (37.0-47.0) % MCV 84.3 (80.0-98.0) fL MCH 29.5 (27.0-33.0) pg MCHC 35.0 (31.0-35.0) g/dl RDW 12.6 (11.0-16.0) % Plt Count 371 D (160-400) X10*3/uL MPV 9.2 L (9.4-12.3) fL Immature Gran % (Auto) 0.3 (0.0-0.4) % Neut % (Auto) 71.7 (45-73) % Lymph % (Auto) 22.6 (20-40) % [place] % (Auto) 5.0 (2-11) % Eos % (Auto) 0.2 (0-4) % Baso % (Auto) 0.2 (0-2) % Lymph # (Auto) 2.7 (1.2-4.9) X10*3/uL [place] # (Auto) 0.6 (0.1-1.2) X10*3/uL Eos # (Auto) 0.0 (0.0-0.4) X10*3/uL Baso # (Auto) 0.0 (0.0-0.2) X10*3/uL Abs Immat Gran (auto) 0.04 H (0.00-0.03) X10*3/uL Absolute Neuts (auto) 8.7 H (2.0-8.3) x10*3/uL Absolute Nucleated RBC 0.000 (0.0-0.012) X10*3/uL Nucleated RBC % (auto) 0.0 (0.0-0.2) /100WBC Sodium 136 (135-145) mmol/L Potassium 3.5 (3.3-5.1) mmol/L Chloride 99 (96-108) mmol/L Carbon Dioxide 24 (22-29) mmol/L Anion Gap 17 (12-20) BUN 8 L (9-16) mg/dL Creatinine 0.82 (0.5-1.4) mg/dL Estim Creat Clear Calc 71.3 Estimated GFR > 60 Random Glucose 123 H (60-115) mg/dL Calcium 10.1 (8.4-10.2) mg/dL Total Bilirubin 0.6 (0.0-1.0) mg/dL AST 15 (5-31) U/L ALT 19 (0-31) U/L Alkaline Phosphatase 55 (39-117) U/L Total Protein 7.9 (6.5-8.0) g/dL Albumin 4.6 (3.5-5.0) g/dL Stool Occult Blood NEGATIVE (NEGATIVE) Independent Interpretation I performed an independent interpretation of an: CT Scan Interpretation: perianal fistula with likely abscess Radiology Impression Discussion of test interpretation with radiology: I have reviewed the radiologist's reading. Radiologist Impression: CT/CT abdomen pelvis w IV con IMPRESSION: Findings suggestive of perianal fistula arising at the 9:00 position of the anal sphincter extending anteriorly to the perineum where there is a collection measuring 2.2 x 2.3 x 3.7 cm possibly representing perianal abscess. Consider MRI pelvis for more sensitive characterization. There is rectal wall thickening and enhancement with perirectal stranding. Possible wall thickening of mid small bowel loops in the and left abdomen. No small bowel obstruction. External Record Review External record reviewed: Inpatient record, Office record and Outpatient record Discharge Plan Discharge Patient Disposition: Admitted As Inpatient Prescriptions: No Action cholecalciferol (vitamin D3) 125 mcg (5,000 unit) capsule 125 mcg PO DAILY Qty: 30 5RF levothyroxine 88 mcg tablet 88 mcg PO DAILY 30 Days Qty: 30 1RF Paxlovid 300 mg (150 mg x 2)-100 mg tablets,dose pack See Rx Instructions PO .COMPLEX Qty: 30 0RF Rx Instructions: take TWO 150 mg tablets of nirmatrelvir with ONE 100 mg tablet of ritonavir twice daily for 5 days PO lisinopril 20 mg tablet 20 mg PO DAILY 30 Days Qty: 30 1RF dicyclomine 20 mg tablet 20 mg PO QID PRN (Reason: abdominal pain) Qty: 20 0RF (DME) Blood Pressure Cuff Misc See Rx Instructions .ROUTE .MEDSUPPLY Qty: 1 0RF Rx Instructions: As directed sucralfate [Carafate] 100 mg/mL suspension 10 ml PO BID 30 Days Qty: 600 2RF rifaximin 550 mg tablet 550 mg PO TID 14 Days Qty: 42 0RF acetaminophen-codeine 300-30 mg tablet 1 tab PO BID PRN (Reason: pain) aspirin 81 mg tablet,delayed release (DR/EC) 81 mg PO DAILY
--- NOTE | 2023-05-18 10:18 | PC.NURSE ---
Pt given enema in two different settings due to patient tolerance, Pt able to have multiple BMs. Pt reporting relief of abdominal pain and pressure. Pt was able to urinate as well. Pt tolerated procedure well
[2023-05-18 10:39] LABS: OBS Int Ctl Valid YES; OBS1 NEGATIVE (NEGATIVE)
[2023-05-18 10:56] LABS: MANUAL DIFF FLAG NO
[2023-05-18 11:03] LABS: Basophils Percent Auto 0.2 % (0-2); Eosinophils Percent Auto 0.2 % (0-4); Hematocrit 42.3 % (37.0-47.0); Hemoglobin 14.8 g/dl (12.0-16.0); Imm Gran Abs Auto 0.04 X10*3/uL (0.00-0.03); Imm Gran Pct Auto 0.3 % (0.0-0.4); Lymphocytes Absolute Auto 2.7 X10*3/uL (1.2-4.9); Lymphocytes Percent Auto 22.6 % (20-40); Mean Corpuscular Hemoglobin 29.5 pg (27.0-33.0); Mean Corpuscular Volume 84.3 fL (80.0-98.0); Mean Platelet Volume 9.2 fL (9.4-12.3); Monocytes Absolute Auto 0.6 X10*3/uL (0.1-1.2); Neutrophils Absolute Auto 8.7 x10*3/uL (2.0-8.3); Neutrophils Percent Auto 71.7 % (45-73); Platelet Count 371 X10*3/uL (160-400); Red Blood Count 5.02 X10*6/uL (4.20-5.50); Red Cell Distribution Width 12.6 % (11.0-16.0); White Blood Count 12.1 X10*3/uL (4.8-10.8)
[2023-05-18 11:17] LABS: Alanine Aminotransferase 19 U/L (0-31); Albumin Level 4.6 g/dL (3.5-5.0); Alkaline Phosphatase 55 U/L (39-117); Anion Gap 17 (12-20); Aspartate Amino Transferase 15 U/L (5-31); Bilirubin Total 0.6 mg/dL (0.0-1.0); Blood Urea Nitrogen 8 mg/dL (9-16); Calcium 10.1 mg/dL (8.4-10.2); Carbon Dioxide 24 mmol/L (22-29); Chloride 99 mmol/L (96-108); Creatinine Clr Calc Pharmacy 71.3; Estimated Glomerular Filt Rate > 60; Glucose Random 123 mg/dL (60-115); Potassium 3.5 mmol/L (3.3-5.1); Sodium 136 mmol/L (135-145); Total Protein 7.9 g/dL (6.5-8.0)
[2023-05-18] MEDS: iohexoL 350 MG/ML 100 ML INFUS..BTL 85 ML IV (12:14)
--- NOTE | 2023-05-18 14:26 | PM.HPGS ---
History of Present Illness History of Present Illness Date of Service: 05/22/23 Chief complaint: Perineal abscess Narrative: Basilia Sawyer is a 52 year old female in the ER because of pain near the anus anteriorly. She actually came initially because of what she says was severe constipation. She has a long history of chronic constipation. However, she says that she was starting to feel bloated and was having some abdominal pain so she decided to come to the emergency room. She says she has had a good bowel movement in several days She had some enemas in the ER with note of evacuation of a lot of stool and she feels much better. However, she says that she continues to have this pain was to the front of her anus. She had a CAT scan showing what appeared to be an abscess in the perianal area. 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 She denies any bleeding from the rectum or the vagina. She had a history of cervicitis after a LEEP procedure last year. Review of Systems Constitutional: Constitutional: Denies chills and Denies fever(s) Cardiovascular: Cardiovascular: Denies chest pain, Denies dyspnea and Denies dyspnea on exertion Respiratory: Respiratory: Denies cough, Denies dyspnea and Denies dyspnea on exertion Gastrointestinal: Gastrointestinal: Denies hematochezia, Denies change in bowel habits and Reports constipation Genitourinary: Genitourinary: Denies hematuria Musculoskeletal: Musculoskeletal: Denies back pain and Denies limited range of motion Neurologic: Denies focal weakness and Denies convulsions Psychiatric: Psychiatric: Denies depression and Denies mood swings [facility] Past Medical History Medical History (Updated 05/22/23 @ 10:09 by Damian King MD) Rectocele Perineal abscess Diarrhea Pelvic pain Elevated cholesterol Unintentional weight loss Fever of unknown origin History of cervical cancer Family history of colon cancer Nicotine dependence, cigarettes, uncomplicated HTN (hypertension) Near syncope Family history of pancreatic cancer COPD (chronic obstructive pulmonary disease) Dysphagia Vitamin D deficiency Hypothyroidism (~1999) Family History Family History Mother Alzheimer's dementia CVD (cardiovascular disease) Maternal Grandfather Pancreatic cancer Surgical History Surgical History History of endometrial ablation History of tonsillectomy (~1976) History of History of throat surgery (~2011) Social History Social History Household Members: Children Household Members Other:: lives at home with 20-year-old daughter Housing: Apartment Do you presently have visiting nurse or other home services: No Alcohol intake: never Comment: vaginal area Patient Tobacco Use Status: Never used Tobacco Tobacco use type: Cigarette Cigarette Packs Per Day: 0.5 Cigarettes Per Day: 5 Years Smoked: (onset 11, 1ppd x 40yrs, now 1/4ppd, 40pyh) e-Cigarette/Vaping Use: Never Used Second Hand Smoke Exposure: Yes Substance Use Type: Marijuana Advance Directives Date on File: 09/11/22 service: No Current occupational status: disabled Cognitive needs: No Hearing needs: No Vision needs: No Meds Allergies Allergy/AdvReac Type Severity Reaction Status Date / Time amoxicillin [From AUGMENTIN] Allergy Severe Anaphylaxis Verified 05/15/23 10:18 clavulanic acid Allergy Severe Anaphylaxis Verified 05/15/23 10:18 [From AUGMENTIN] banana Allergy Unknown Unknown Verified 05/15/23 10:18 ketorolac [From Toradol] Allergy Unknown Anaphylaxis Verified 05/15/23 10:18 kiwi Allergy Unknown Unknown Verified 05/15/23 10:18 prochlorperazine Allergy Unknown INVOLUNTARY Verified 05/15/23 10:18 [From COMPAZINE] SPASMS Physical Exam Vital Signs: Vital Signs: Last Vital Signs Temp 97.6 F 05/18/23 07:30 Pulse 120 H 05/18/23 07:30 Resp 16 05/18/23 07:30 BP 136/91 H 05/18/23 07:30 Pulse Ox 99 05/18/23 07:30 O2 Del Method Room Air 05/18/23 07:30 BMI result Body Mass Index 21.6 GI: Other: Digital exam shows what appeared to be an induration in the anterior anorectal wall tenderness. This was also felt with bimanual exam through the vagina. Results Results Labs: Short CBC 05/18/23 Range/Units 10:53 WBC 12.1 H (4.8-10.8) X10*3/uL Hgb 14.8 (12.0-16.0) g/dl Hct 42.3 (37.0-47.0) % Plt Count 371 D (160-400) X10*3/uL BMP 05/18/23 10:53 Sodium 136 Potassium 3.5 Chloride 99 Carbon Dioxide 24 BUN 8 L Creatinine 0.82 Calcium 10.1 Liver Function 05/18/23 Range/Units 10:53 Total Bilirubin 0.6 (0.0-1.0) mg/dL AST 15 (5-31) U/L ALT 19 (0-31) U/L Alkaline Phosphatase 55 (39-117) U/L Albumin 4.6 (3.5-5.0) g/dL Abdomen CT scan report/results: report reviewed and image reviewed CT scan - pelvis: report reviewed and image reviewed Assessment and Plan (1) Acute urinary retention: Status: Acute The patient has a Mccray catheter in place. Urine output is good. I will consult the urologist with regards to this. Quality Stroke Does the patient have a stroke diagnosis?: No VTE Prior VTE?: No VTE Risk Level:: Medical - moderate - high VTE Device Contraindication: N/A - Device Ordered VTE Drug Contraindication: N/A - Med Ordered Procedures Date of Service Date of Service: 05/22/23
[2023-05-18 14:56] LABS: Appearance Urine Clear; Color Urine Yellow; Glucose Urine UA Negative (Negative); Leukocyte Esterase Urine Negative (Negative); Nitrite Urine Negative (Negative); Specific Gravity - Urine >= 1.030 (1.005-1.025); UMIC TRIGGER UACC YES; Urine Blood Small (1+) (Negative); Urine Ketones 15 mg/dL (Negative); Urine Protein Negative (Neg-Trace)
[2023-05-18 15:09] LABS: Bacteria Urine None Seen (None Seen); Hyaline Casts Urine 0-2 /LPF (0-2); Squamous Epithelial Cell Urine 0-2 /HPF (0-2); WBC Urine 0-5 /HPF (0-5)
[2023-05-18] MEDS: cefTRIAXone sodium 1 GM in 0.9 % Sodium Chloride 50 ML IV (15:12)
--- NOTE | 2023-05-18 15:38 | P.CONAN_ITS ---
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 States symptoms of joint instability and hypermobility have improved. Mostly involved shoulders. Not aware of affectation of blood vessels. Discussed positioning in stirrups with patient. Patient will position self comfortably before induction of anesthesia. As noted below, 3 very loose teeth in bottom with very high possibility of dislodgement. Patient aware of this and states no concerns if teeth fall out. PMFSH Active Problems Active Problems: All Active Problems (Updated 05/18/23 @ 16:04 by Della Valadez MD) Acute urinary retention (Acute) Constipation (Acute) Perianal fistula (Acute) Perineal abscess (Acute) Billy's disease (Acute) Chronic abdominal pain (Acute) Labile blood pressure (Acute) Autoimmune disease (Acute) COVID-19 (Acute) Small intestinal bacterial overgrowth (SIBO) (Acute) Hypophosphatemia (Acute) Neuroforaminal stenosis of thoracic spine (Acute) RUQ abdominal pain (Acute) SI (sacroiliac) pain (Acute) Thoracic radiculitis (Acute) Thyromegaly (Acute) Hypercalcemia (Acute) Pleuritic pain (Acute) GERD (gastroesophageal reflux disease) (Acute) Hypocalcemia (Acute) Hyperglycemia (Acute) Dark stools (Acute) Myalgia (Acute) Anemia (Acute) Urinary tract infection (Acute) Pelvic pain (Acute) Pelvic inflammatory disease (PID) (Acute) Peripheral neuropathy (Acute) Neha-Danlos syndrome (Acute) Chronic pancreatitis (Acute) Tubular adenoma of colon (Acute) STONE (generalized anxiety disorder) (Acute) MDD (major depressive disorder), recurrent episode, moderate (Acute) IBS (irritable bowel syndrome) (Acute) Lumbar spine pain (Acute) Atypical chest pain (Acute) Diverticulitis (Acute) Heart palpitations (Acute) Pulmonary emphysema (Acute) Abnormal stress ECG with treadmill (Acute) Syncope (Acute) Facial paresthesia (Acute) High cholesterol (Acute) Well woman exam (Acute) Tongue lesion (Acute) HPV in female (Acute) VERONIKA III (cervical intraepithelial neoplasia grade III) with severe dysplasia (Acute) Pre-op evaluation (Acute) Unintentional weight loss (Acute) Fever of unknown origin (Acute) COPD (chronic obstructive pulmonary disease) (Acute) HTN (hypertension) (Acute) Hypothyroidism (Acute ~1999) Nicotine dependence, cigarettes, uncomplicated (Acute) Vitamin D deficiency (Acute) Marijuana use Past Medical History Medical History Perineal abscess Diarrhea Pelvic pain Elevated cholesterol Unintentional weight loss Fever of unknown origin History of cervical cancer Family history of colon cancer Nicotine dependence, cigarettes, uncomplicated HTN (hypertension) Near syncope Family history of pancreatic cancer COPD (chronic obstructive pulmonary disease) Dysphagia Vitamin D deficiency Hypothyroidism (~1999) Family History Family History Mother Alzheimer's dementia CVD (cardiovascular disease) Maternal Grandfather Pancreatic cancer Family history of problems with anesthesia: No Surgical History Surgical History History of endometrial ablation History of tonsillectomy (~1976) History of History of throat surgery (~2011) History of Problems with Anesthesia: No Social History Social History Household Members: Children Household Members Other:: lives at home with 20-year-old daughter Housing: Apartment Do you presently have visiting nurse or other home services: No Alcohol intake: never Patient Tobacco Use Status: Never used Tobacco Tobacco use type: Cigarette Cigarette Packs Per Day: 0.5 Cigarettes Per Day: 5 Years Smoked: (onset 11, 1ppd x 40yrs, now 1/4ppd, 40pyh) e-Cigarette/Vaping Use: Never Used Second Hand Smoke Exposure: Yes Substance Use Type: Marijuana Advance Directives Date on File: 09/11/22 service: No Current occupational status: disabled Cognitive needs: No Hearing needs: No Vision needs: No Meds Allergies Allergy/AdvReac Type Severity Reaction Status Date / Time amoxicillin [From AUGMENTIN] Allergy Severe Anaphylaxis Verified 05/15/23 10:18 clavulanic acid Allergy Severe Anaphylaxis Verified 05/15/23 10:18 [From AUGMENTIN] banana Allergy Unknown Unknown Verified 05/15/23 10:18 ketorolac [From Toradol] Allergy Unknown Anaphylaxis Verified 05/15/23 10:18 kiwi Allergy Unknown Unknown Verified 05/15/23 10:18 prochlorperazine Allergy Unknown INVOLUNTARY Verified 05/15/23 10:18 [From COMPAZINE] SPASMS Active Medications: Current Medications Metronidazole (Flagyl) 500 mg in 100 mls @ 100 mls/hr IV Q8H [facility] Ceftriaxone Sodium 1 gm/ (Sodium Chloride) 50 mls @ 100 mls/hr IV Q12H [facility] Last Admin: 05/18/23 15:12 Dose: 100 mls/hr Morphine Sulfate (Morphine Sulfate 2 Mg/Ml Cartridge) 2 mg IVPUSH Q4H PRN; Protocol PRN Reason: Pain, Severe (Pain Scale 7-10) Sodium Chloride (0.9 % Sodium Chloride Flush 3 Ml Syringe) 3 ml IVFLUSH QSHIFT [facility] Exam Height,Weight and Vital Signs: Height 5 ft 5 in Weight 58.967 kg Last Vital Signs Temp 98.0 F 05/18/23 15:24 Pulse 72 05/18/23 15:24 Resp 18 05/18/23 15:24 BP 151/99 H 05/18/23 15:24 Pulse Ox 99 05/18/23 15:24 O2 Del Method Room Air 05/18/23 15:24 Temp Pulse Resp BP Pulse Ox O2 Del Method 98.6 F 79 16 144/96 H 99 Room Air 05/18/23 16:38 05/18/23 16:38 05/18/23 16:38 05/18/23 16:38 05/18/23 16:38 05/18/23 16:38 Pertinent Lab Results Pertinent Lab Results: Laboratory Tests 05/18/23 05/18/23 05/18/23 10:25 10:53 14:42 WBC 12.1 H RBC 5.02 Hgb 14.8 Hct 42.3 MCV 84.3 MCH 29.5 MCHC 35.0 RDW 12.6 Plt Count 371 D MPV 9.2 L Immature Gran % (Auto) 0.3 Neut % (Auto) 71.7 Lymph % (Auto) 22.6 [place] % (Auto) 5.0 Eos % (Auto) 0.2 Baso % (Auto) 0.2 Lymph # (Auto) 2.7 [place] # (Auto) 0.6 Eos # (Auto) 0.0 Baso # (Auto) 0.0 Abs Immat Gran (auto) 0.04 H Absolute Neuts (auto) 8.7 H Absolute Nucleated RBC 0.000 Nucleated RBC % (auto) 0.0 Sodium 136 Potassium 3.5 Chloride 99 Carbon Dioxide 24 Anion Gap 17 BUN 8 L Creatinine 0.82 Estim Creat Clear Calc 71.3 Estimated GFR > 60 Random Glucose 123 H Calcium 10.1 Total Bilirubin 0.6 AST 15 ALT 19 Alkaline Phosphatase 55 Total Protein 7.9 Albumin 4.6 Urine Color Yellow Urine Appearance Clear Urine pH 7.0 Ur Specific [place] >= 1.030 H Urine Protein Negative Urine Glucose (UA) Negative Urine Ketones 15 Urine Blood Small (1+) H Urine Nitrite Negative Ur Leukocyte Esterase Negative Urine RBC 3-5 H Urine WBC 0-5 Ur Squamous Epith Cells 0-2 Urine Bacteria None Seen Hyaline Casts 0-2 Stool Occult Blood NEGATIVE Airway Mallampati Class: II TM Dist: >3cm Neck ROM: Full Loose/Missing/Broken Teeth: Yes (Poor dentition. Many missing. Bottom front loos e) Heart: RRR Lungs: CTAB Assessment and Plan Assessment Anesthesia Assessment: Anesthesia Plan Discussed and Chart Reviewed Final Anesthetic Review Family History of Problems with Anesthesia: No History of Problems with Anesthesia: No NPO: Yes ASA Class: III Final Preanesthetic Review: No Changes in Pt Med Stat, Meds/Allgs Chart Reviewed and Consent Obtained/Reviewed Patient Risk: Intermediate Procedure Risk: Low Assessment/Block/Sedation in SS: Assess/Block/Sedation-SS Anesthetic Plan Anesthetic Plan: GA (Patient will position self in stirrups secondary Neha Danlos condition ) Disposition: Standard PACU
--- NOTE | 2023-05-18 15:57 | PHA.MEDREC ---
Pharmacy Consult ? Medication Reconciliation Pharmacy has completed the medication reconciliation. Patient said she never picked up the dicyclomine and stopped the rifaximin
[2023-05-18] MEDS: metroNIDAZOLE/NS 500 MG/100 ML PIGGYBACK 100 MG IV ×2 (16:04→22:10)
[2023-05-18] MEDS: Morphine Sulfate 2 MG/ML CARTRIDGE IVPUSH ×2 (16:04→20:04)
--- NOTE | 2023-05-18 16:21 | PM.EVENT ---
Event Note Date of Service: 05/18/23 Event Note: pt has decided to go ahead with EUA, I and D of the perineal abscess now she says she still has pain in the area she understands the technique of the planned procedure she is aware of the risks, benefits and alternatives Time Spent With Patient Time: Total time managing care of this patient today ____ minutes.
[2023-05-18] MEDS: Lactated Ringers 1,000 ML 100 ML IVCONT ×2 (16:40→18:20)
--- NOTE | 2023-05-18 17:20 | P.OP_ITS ---
Operative Note Operative Note Date of Service: 05/18/23 Narrative: Preop diagnosis: Perineal abscess Postop diagnosis: No perineal abscess found, large defect in the muscular layer of the rectovaginal septum with bogginess of mucosa, without a fistula Procedure: Exam under anesthesia, aspiration of perineum and rectovaginal septum in multiple areas with gauge 21 needle Surgeon: Damian King MD The patient is a 52-year-old female, who came to the ER today because of constip ation. She does have a long history of chronic constipation. However, she was worried because she has had no good bowel movement in several days. She had some enemas in the ER with good results. She did have a CT scan because of her complaints of constipation with abdominal pain. This scan suggested an abscess in the anterior anal canal appearing to be in the rectovaginal septum. She did have some tenderness on the area I therefore recommended to her to proceed with an exam under anesthesia if we can drain this abscess. She understood the technique of the planned procedure as well as the risks, benefits, and alternatives She was brought to the operating room. She was placed in modified lithotomy position under general anesthesia via endotracheal tube. The perineum and the vagina were prepped and draped in the usual sterile fashion. A surgical guide time-out was done. The patient was already receiving IV antibiotics as scheduled I palpated for the vagina as well as the anus in a bimanual fashion. There was actually a large defect in the rectovaginal septum without an open fistula. The mucosal lining was intact on both sides. This appeared boggy and edematous but n ot inflamed. I inserted the vaginal speculum. I examined the entire posterior vaginal wall. There was no inflammatory changes. There has no sinus, or sinus on the area. Again, palpation of the rectovaginal wall revealed a defect with the mucosa intact. I used the gauge 21 needle to aspirate multiple areas and no abscess or fluid was aspirated The induration that I had initially felt on the bimanual exam in the ER was actually the edge of the muscular layer of the rectovaginal septum. The defect in this layer was about 2.5 cm in diameter. Digital exam of the anal canal did not reveal any induration. The procedure was there for completed The patient tolerated procedure well. There were no immediate complications. I explained to the patient the findings as above.
[2023-05-19] MEDS: Morphine Sulfate 2 MG/ML CARTRIDGE IVPUSH ×5 (00:07→23:03)
[2023-05-19] MEDS: cefTRIAXone sodium 1 GM in 0.9 % Sodium Chloride 50 ML IV (02:57)
[2023-05-19 03:17] VITALS: BP 129/73; PULSE 56; RESP 18; TEMP 36.3; O2SAT 99
[2023-05-19] MEDS: Lactated Ringers 1,000 ML 100 ML IVCONT (04:37)
[2023-05-19] MEDS: metroNIDAZOLE/NS 500 MG/100 ML PIGGYBACK 100 MG IV (06:25)
[2023-05-19 07:21] LABS: MANUAL DIFF FLAG NO
[2023-05-19 07:28] LABS: Eosinophils Percent Auto 0.2 % (0-4); Hematocrit 35.7 % (37.0-47.0); Hemoglobin 12.4 g/dl (12.0-16.0); Imm Gran Abs Auto 0.02 X10*3/uL (0.00-0.03); Imm Gran Pct Auto 0.4 % (0.0-0.4); Lymphocytes Absolute Auto 1.1 X10*3/uL (1.2-4.9); Lymphocytes Percent Auto 20.3 % (20-40); Mean Corpuscular HGB Conc 34.7 g/dl (31.0-35.0); Mean Corpuscular Hemoglobin 30.3 pg (27.0-33.0); Mean Corpuscular Volume 87.3 fL (80.0-98.0); Mean Platelet Volume 9.2 fL (9.4-12.3); Monocytes Absolute Auto 0.4 X10*3/uL (0.1-1.2); Monocytes Percent Auto 6.5 % (2-11); Neutrophils Absolute Auto 3.9 x10*3/uL (2.0-8.3); Neutrophils Percent Auto 72.6 % (45-73); Platelet Count 295 X10*3/uL (160-400); Red Blood Count 4.09 X10*6/uL (4.20-5.50); Red Cell Distribution Width 12.8 % (11.0-16.0); White Blood Count 5.4 X10*3/uL (4.8-10.8)
[2023-05-19 07:42] VITALS: BP 132/77; PULSE 69; RESP 18; TEMP 36.1; O2SAT 99
--- NOTE | 2023-05-19 09:08 | P.PNGS_ITS ---
Subjective Subjective Date of Service: 05/19/23 Interval history: says she feels she has bladder spasms some perineal pain after EUA last night hungry, wants to eat Physical Exam 2 Vital Signs: Vital Signs: Last Vital Signs Temp 97.0 F 05/19/23 07:42 Pulse 69 05/19/23 07:42 Resp 18 05/19/23 07:42 BP 132/77 05/19/23 07:42 Pulse Ox 99 05/19/23 07:42 O2 Del Method Room Air 05/19/23 07:42 BMI result Body Mass Index 21.6 Const: Other: looks well General: comfortable and no acute distress Resp: Effort & Inspection: normal respiratory effort Cardio: Rate: regular rate GI: Palpation (GI): Soft to palpation, not firm and no guarding Objective Data Active Medications Acetaminophen (Acetaminophen 325 Mg Tablet) 650 mg PO ONCE PRN PRN Reason: Pain, Mild (Pain Scale 1-3) Metronidazole (Flagyl) 500 mg in 100 mls @ 100 mls/hr IV Q8H [facility] Last Infusion: 05/19/23 07:30 Dose: Infused Documented By: GARETH Ceftriaxone Sodium 1 gm/ (Sodium Chloride) 50 mls @ 100 mls/hr IV Q12H [facility] Last Infusion: 05/19/23 03:39 Dose: Infused Documented By: MASON Lactated Ringer's (Lr) 1,000 mls @ 100 mls/hr IVCONT .Q10H [facility] Last Admin: 05/19/23 04:37 Dose: 100 mls/hr Documented By: MASON Morphine Sulfate (Morphine Sulfate 2 Mg/Ml Cartridge) 2 mg IVPUSH Q4H PRN; Protocol PRN Reason: Pain, Severe (Pain Scale 7-10) Last Admin: 05/19/23 04:43 Dose: 2 mg Documented By: MASON Ondansetron HCl (Ondansetron Hcl 4 Mg/2 Ml Vial) 4 mg IVPUSH ONCE PRN PRN Reason: Nausea and Vomiting Sodium Chloride (0.9 % Sodium Chloride Flush 3 Ml Syringe) 3 ml IVFLUSH QSHIFT [facility] Last Admin: 05/19/23 07:09 Dose: Not Given Documented By: GARETH Non-Admin Reason: IV Running Labs 05/19/23 07:07 05/18/23 10:53 Labs: Laboratory Results - last 24 hr 05/18/23 05/18/23 05/18/23 10:25 10:53 14:42 MCV 84.3 MCH 29.5 MCHC 35.0 RDW 12.6 Plt Count 371 D MPV 9.2 L Immature Gran % (Auto) 0.3 Neut % (Auto) 71.7 Lymph % (Auto) 22.6 [place] % (Auto) 5.0 Eos % (Auto) 0.2 Baso % (Auto) 0.2 Lymph # (Auto) 2.7 [place] # (Auto) 0.6 Eos # (Auto) 0.0 Baso # (Auto) 0.0 Abs Immat Gran (auto) 0.04 H Absolute Neuts (auto) 8.7 H Absolute Nucleated RBC 0.000 Nucleated RBC % (auto) 0.0 Anion Gap 17 Estim Creat Clear Calc 71.3 Estimated GFR > 60 Random Glucose 123 H Calcium 10.1 Total Bilirubin 0.6 AST 15 ALT 19 Alkaline Phosphatase 55 Total Protein 7.9 Albumin 4.6 Urine Color Yellow Urine Appearance Clear Urine pH 7.0 Ur Specific [place] >= 1.030 H Urine Protein Negative Urine Glucose (UA) Negative Urine Ketones 15 Urine Blood Small (1+) H Urine Nitrite Negative Ur Leukocyte Esterase Negative Urine RBC 3-5 H Urine WBC 0-5 Ur Squamous Epith Cells 0-2 Urine Bacteria None Seen Hyaline Casts 0-2 Stool Occult Blood NEGATIVE 05/19/23 07:07 MCV 87.3 MCH 30.3 MCHC 34.7 RDW 12.8 Plt Count 295 MPV 9.2 L Immature Gran % (Auto) 0.4 Neut % (Auto) 72.6 Lymph % (Auto) 20.3 [place] % (Auto) 6.5 Eos % (Auto) 0.2 Baso % (Auto) 0.0 Lymph # (Auto) 1.1 L [place] # (Auto) 0.4 Eos # (Auto) 0.0 Baso # (Auto) 0.0 Abs Immat Gran (auto) 0.02 Absolute Neuts (auto) 3.9 Absolute Nucleated RBC 0.000 Nucleated RBC % (auto) 0.0 Anion Gap Estim Creat Clear Calc Estimated GFR Random Glucose Calcium Total Bilirubin AST ALT Alkaline Phosphatase Total Protein Albumin Urine Color Urine Appearance Urine pH Ur Specific [place] Urine Protein Urine Glucose (UA) Urine Ketones Urine Blood Urine Nitrite Ur Leukocyte Esterase Urine RBC Urine WBC Ur Squamous Epith Cells Urine Bacteria Hyaline Casts Stool Occult Blood Procedures Date of Service Date of Service: 05/19/23 Progress Note: A&P Assessment and plan (1) Acute urinary retention: Status: Acute Assessment and Plan: underwent EUA yesterday for question of abscess in anterior anal wall - no abscess seen but muscular defect noted in rectovaginal septum; she does state she frequently has to digitate the vagina during BMs looks well await urology recomendation re retention will rx Colace, Metamucil for chronic constipation Time Spent With Patient Time: Total time managing care of this patient today ____ minutes. Quality Stroke Does the patient have a stroke diagnosis?: No VTE Prior VTE?: No VTE Risk Level:: Medical - moderate - high VTE Device Contraindication: N/A - Device Ordered VTE Drug Contraindication: N/A - Med Ordered
--- NOTE | 2023-05-19 09:58 | HO.POSTANES ---
Post Anesthesia Evaluation Post Anesthesia Evaluation Date of Service: 05/19/23 Vital Signs: Vital Signs Temp Pulse Resp BP Pulse Ox O2 Del Method 05/19/23 07:42 97.0 F 69 18 132/77 99 Room Air 05/19/23 03:17 97.3 F 56 18 129/73 99 Room Air Anesthesia: General Endotracheal-GETA Mental Status: Awake Pain Control: Satisfactory Nausea/Vomiting: None Hydration: Adequate Anesthesia-Related Issues: No Anes. Related Issues
--- NOTE | 2023-05-19 12:43 | MHC.CM.PN ---
PATIENT REPORTS SHE IS FROM HOME WITH HER DISABLED DTR. PATIENT IS INDEPENDENT. NO SERVICES OR DME. PCP: GILES BLISS HCP: OLDEST DAUGHTER HEATHER. ON FILE AND VERIFIED. IMM DELIVERED. DP: GOAL IS HOME SELF CARE. FAMILY TO TRANSPORT. CM WILL CONTINUE TO FOLLOW.
[2023-05-19] MEDS: Dextrose 5 % and 0.9 % NaCl 1,000 ML 80 ML IVCONT (15:49)
[2023-05-19] MEDS: oxyBUTYnin chloride ER 5 MG TAB.ER.24 10 MG PO (15:51)
[2023-05-19 15:54] VITALS: BP 143/85; PULSE 63; RESP 15; TEMP 36.1; O2SAT 98
--- NOTE | 2023-05-19 16:41 | PM.EVENT ---
Event Note Date of Service: 05/19/23 Event Note: describes pain in anus and vagina bladder appears full, with spasms rectal exam repeated - good air in vault, no induration or swelling or pus started on Ditropan await input Time Spent With Patient Time: Total time managing care of this patient today ____ minutes.
[2023-05-19 17:10] VITALS: O2SAT 97
[2023-05-19 19:17] VITALS: BP 114/73; PULSE 70; RESP 14; TEMP 36.6; O2SAT 97
[2023-05-20] MEDS: Dextrose 5 % and 0.9 % NaCl 1,000 ML 80 ML IVCONT (02:12)
[2023-05-20 03:55] VITALS: BP 130/65; PULSE 70; RESP 18; TEMP 36.3; O2SAT 97
[2023-05-20] MEDS: Morphine Sulfate 2 MG/ML CARTRIDGE IVPUSH ×4 (05:12→20:42)
[2023-05-20 07:51] VITALS: BP 140/83; PULSE 63; RESP 16; TEMP 36.7; O2SAT 96
--- NOTE | 2023-05-20 09:43 | PM.PNGS ---
Subjective Subjective Date of Service: 05/20/23 Interval history: still having spasms in the perineum she has sensation of pressure in the rectum and bladder no bleeding she feels she cannot pass stool easily Physical Exam Vital Signs: Vital Signs: Last Vital Signs Temp 98.1 F 05/20/23 07:51 Pulse 63 05/20/23 07:51 Resp 16 05/20/23 07:51 BP 140/83 H 05/20/23 07:51 Pulse Ox 96 05/20/23 07:51 O2 Del Method Room Air 05/20/23 07:51 BMI result Body Mass Index 21.6 Const: Other: appears anxious General: no acute distress Resp: Effort & Inspection: normal respiratory effort Cardio: Rate: regular rate GI: Other: no perianal induration, redness; digital rectal exam repeated last night - no suggesstion of abscess Palpation (GI): Soft to palpation, not firm and no guarding : Other: M[place] in place Objective Data Active Medications Acetaminophen (Acetaminophen 325 Mg Tablet) 650 mg PO ONCE PRN PRN Reason: Pain, Mild (Pain Scale 1-3) Dextrose/Sodium Chloride (D5ns) 1,000 mls @ 80 mls/hr IVCONT .[id number] [facility] Last Admin: 05/20/23 02:12 Dose: 80 mls/hr Documented By: MASON Levothyroxine Sodium (Levothyroxine Sodium 88 Mcg Tablet) 88 mcg PO DAILY [facility] Lisinopril (Lisinopril 20 Mg Tablet) 20 mg PO DAILY [facility]; Protocol Morphine Sulfate (Morphine Sulfate 2 Mg/Ml Cartridge) 2 mg IVPUSH Q4H PRN; Protocol PRN Reason: Pain, Severe (Pain Scale 7-10) Last Admin: 05/20/23 05:12 Dose: 2 mg Documented By: MASON Ondansetron HCl (Ondansetron Hcl 4 Mg/2 Ml Vial) 4 mg IVPUSH ONCE PRN PRN Reason: Nausea and Vomiting Oxybutynin Chloride (Oxybutynin Chloride Er 5 Mg Tab.Er.24) 10 mg PO DAILY [facility] Last Admin: 05/20/23 09:13 Dose: Not Given Documented By: GARETH Non-Admin Reason: Patient Refused Sodium Chloride (0.9 % Sodium Chloride Flush 3 Ml Syringe) 3 ml IVFLUSH QSHIFT [facility] Last Admin: 05/20/23 07:36 Dose: Not Given Documented By: GARETH Non-Admin Reason: IV Running Labs 05/19/23 07:07 05/18/23 10:53 Procedures Date of Service Date of Service: 05/20/23 Progress Note: A&P Assessment and plan (1) Acute urinary retention: Status: Acute Assessment and Plan: still having spasms in perineum started on Ditropan awaiting Urology consult abd soft and benign no abscesss seen on exam under anesthesia abx dc'ed Time Spent With Patient Time: Total time managing care of this patient today ____ minutes. Quality Stroke Does the patient have a stroke diagnosis?: No VTE Prior VTE?: No VTE Risk Level:: Medical - moderate - high VTE Device Contraindication: N/A - Device Ordered VTE Drug Contraindication: N/A - Med Ordered
[2023-05-20] MEDS: lisinopriL 20 MG TABLET PO (09:58)
[2023-05-20] MEDS: Levothyroxine Sodium 88 MCG TABLET PO (09:58)
[2023-05-20] MEDS: oxyBUTYnin chloride ER 5 MG TAB.ER.24 10 MG PO (09:58)
[2023-05-20 16:00] VITALS: BP 140/83; PULSE 59; RESP 16; TEMP 36.6; O2SAT 99
[2023-05-20] MEDS: Dextrose 5 % and 0.9 % NaCl 1,000 ML 60 ML IVCONT (16:14)
--- NOTE | 2023-05-20 17:10 | P.CNUR_ITS ---
History of Present Illness Consult details Consult date: 05/20/23 Narrative: CC: Urinary retention 52-year-old female Present with difficulty emptying bowels and question of perirectal abscess 1200 cc bladder Mccray catheter placed Reports history of digitization to empty bowels. Slow urine. Pelvic pressure with sensitive dragging. 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 - 2 , 3 vaginal Review of Systems 2 Constitutional: Constitutional: Reports as per HPI and Reports no additional constitutional complaints Cardiovascular: Cardiovascular: Reports as per HPI and Reports no additional cardiovascular complaints Respiratory: Respiratory: Reports as per HPI and Reports no additional respiratory complaints Gastrointestinal: Gastrointestinal: Reports as per HPI and Reports no additional gastrointestinal complaints Genitourinary: Genitourinary: Reports as per HPI Musculoskeletal: Musculoskeletal: Reports no additional musculoskeletal complaints and Reports as per HPI Neurologic: Reports system reviewed and no additional complaints, except as documented and Reports as per HPI PMFSH Past Medical History Medical History Perineal abscess Diarrhea Pelvic pain Elevated cholesterol Unintentional weight loss Fever of unknown origin History of cervical cancer Family history of colon cancer Nicotine dependence, cigarettes, uncomplicated HTN (hypertension) Near syncope Family history of pancreatic cancer COPD (chronic obstructive pulmonary disease) Dysphagia Vitamin D deficiency Hypothyroidism (~1999) Family History Family History Mother Alzheimer's dementia CVD (cardiovascular disease) Maternal Grandfather Pancreatic cancer Surgical History Surgical History History of endometrial ablation History of tonsillectomy (~1976) History of History of throat surgery (~2011) Social History Social History Household Members: Children Household Members Other:: lives at home with 20-year-old daughter Housing: Apartment Do you presently have visiting nurse or other home services: No Alcohol intake: never Comment: vaginal area Patient Tobacco Use Status: Never used Tobacco Tobacco use type: Cigarette Cigarette Packs Per Day: 0.5 Cigarettes Per Day: 5 Years Smoked: (onset 11, 1ppd x 40yrs, now 1/4ppd, 40pyh) e-Cigarette/Vaping Use: Never Used Second Hand Smoke Exposure: Yes Substance Use Type: Marijuana Advance Directives Date on File: 09/11/22 service: No Current occupational status: disabled Cognitive needs: No Hearing needs: No Vision needs: No Meds Allergies Allergy/AdvReac Type Severity Reaction Status Date / Time amoxicillin [From AUGMENTIN] Allergy Severe Anaphylaxis Verified 05/15/23 10:18 clavulanic acid Allergy Severe Anaphylaxis Verified 05/15/23 10:18 [From AUGMENTIN] banana Allergy Unknown Unknown Verified 05/15/23 10:18 ketorolac [From Toradol] Allergy Unknown Anaphylaxis Verified 05/15/23 10:18 kiwi Allergy Unknown Unknown Verified 05/15/23 10:18 prochlorperazine Allergy Unknown INVOLUNTARY Verified 05/15/23 10:18 [From COMPAZINE] SPASMS Active Medications: Current Medications Acetaminophen (Acetaminophen 325 Mg Tablet) 650 mg PO ONCE PRN PRN Reason: Pain, Mild (Pain Scale 1-3) Acetaminophen (Acetaminophen 325 Mg Tablet) 650 mg PO Q6H PRN PRN Reason: headache Dextrose/Sodium Chloride (D5ns) 1,000 mls @ 60 mls/hr IVCONT .[id number] [facility] Last Admin: 05/20/23 16:14 Dose: 60 mls/hr Levothyroxine Sodium (Levothyroxine Sodium 88 Mcg Tablet) 88 mcg PO DAILY [facility] Last Admin: 05/20/23 09:58 Dose: 88 mcg Lisinopril (Lisinopril 20 Mg Tablet) 20 mg PO DAILY [facility]; Protocol Last Admin: 05/20/23 09:58 Dose: 20 mg Morphine Sulfate (Morphine Sulfate 2 Mg/Ml Cartridge) 2 mg IVPUSH Q4H PRN; Protocol PRN Reason: Pain, Severe (Pain Scale 7-10) Last Admin: 05/20/23 16:13 Dose: 2 mg Ondansetron HCl (Ondansetron Hcl 4 Mg/2 Ml Vial) 4 mg IVPUSH ONCE PRN PRN Reason: Nausea and Vomiting Oxybutynin Chloride (Oxybutynin Chloride Er 5 Mg Tab.Er.24) 10 mg PO DAILY [facility] Last Admin: 05/20/23 09:58 Dose: 10 mg Sodium Chloride (0.9 % Sodium Chloride Flush 3 Ml Syringe) 3 ml IVFLUSH QSHIFT [place] Last Admin: 05/20/23 16:18 Dose: Not Given Physical Exam 2 Vital Signs: Vital Signs: Last Vital Signs Temp 98 F 05/20/23 16:00 Pulse 59 05/20/23 16:00 Resp 16 05/20/23 16:00 BP 140/83 H 05/20/23 16:00 Pulse Ox 99 05/20/23 16:00 O2 Del Method Room Air 05/20/23 16:00 BMI result Body Mass Index 21.6 Const: General: cooperative, healthy appearing, comfortable and no acute distress Orientation/consciousness: patient oriented x3 HEENT: Face and sinus: Yes normal facial exam Mouth: moist mucous membranes Neck: Neck: Yes normal visual inspection, Yes full ROM and Yes trachea midline Chest: Chest palpation & inspection: normal inspection of the chest Resp: Effort & Inspection: normal respiratory effort, able to speak in complete sentences and no respiratory distress GI: Inspection: Yes normal to inspection Back/Spine/Pelvis: Cervical Spine: normal cervical lordosis Thoracic/Lumbar Spine: thoracic and lumbar spine normal to inspection Skin: General skin exam: no rashes or lesions noted Neuro: General: patient oriented x3, tone normal and moves all extremities Extrem: General: Yes normal to inspection and Yes capillary refill normal Results Labs 05/19/23 07:07 05/18/23 10:53 Labs: Urine 05/18/23 Range/Units 14:42 Urine Color Yellow Urine Appearance Clear Urine pH 7.0 (5.0-9.0) Ur Specific [place] >= 1.030 H (1.005-1.025) Urine Protein Negative (Neg-Trace) mg/dL Urine Glucose (UA) Negative (Negative) mg/dL All other labs normal. Assessment and Plan (1) Acute urinary retention: Status: Acute Plan Mccray catheter with cap Two week follow-up voiding trial assessment pessary Procedures Date of Service Date of Service: 05/20/23
[2023-05-20 19:52] VITALS: BP 121/75; PULSE 89; RESP 18; TEMP 37.1; O2SAT 98
[2023-05-20] MEDS: 0.9 % Sodium Chloride Flush 3 ML SYRINGE IVFLUSH (20:42)
[2023-05-21 04:00] VITALS: BP 121/71; PULSE 54; RESP 16; TEMP 36.8; O2SAT 100
[2023-05-21] MEDS: Morphine Sulfate 2 MG/ML CARTRIDGE IVPUSH ×3 (04:20→14:54)
[2023-05-21 07:25] VITALS: BP 135/82; PULSE 61; RESP 14; TEMP 36; O2SAT 99
[2023-05-21] MEDS: lisinopriL 20 MG TABLET PO (08:47)
[2023-05-21] MEDS: Levothyroxine Sodium 88 MCG TABLET PO (08:47)
[2023-05-21] MEDS: Dextrose 5 % and 0.9 % NaCl 1,000 ML 60 ML IVCONT (08:48)
--- NOTE | 2023-05-21 12:49 | P.PNGS_ITS ---
Subjective Subjective Date of Service: 05/22/23 Interval history: feels well today tolerating diet denies BM Physical Exam 2 Vital Signs: Vital Signs: Last Vital Signs Temp 96.8 F 05/21/23 07:25 Pulse 61 05/21/23 07:25 Resp 14 05/21/23 07:25 BP 135/82 05/21/23 07:25 Pulse Ox 99 05/21/23 07:25 O2 Del Method Room Air 05/21/23 07:25 BMI result Body Mass Index 21.6 Const: General: comfortable and no acute distress Resp: Effort & Inspection: normal respiratory effort Cardio: Rate: regular rate GI: Palpation (GI): Soft to palpation, not firm and nontender : Other: Mccray in Objective Data Active Medications Acetaminophen (Acetaminophen 325 Mg Tablet) 650 mg PO ONCE PRN PRN Reason: Pain, Mild (Pain Scale 1-3) Acetaminophen (Acetaminophen 325 Mg Tablet) 650 mg PO Q6H PRN PRN Reason: headache Dextrose/Sodium Chloride (D5ns) 1,000 mls @ 60 mls/hr IVCONT .[id number] [facility] Last Admin: 05/21/23 08:48 Dose: 60 mls/hr Documented By: SHLOMO Levothyroxine Sodium (Levothyroxine Sodium 88 Mcg Tablet) 88 mcg PO DAILY [facility] Last Admin: 05/21/23 08:47 Dose: 88 mcg Documented By: SHLOMO Lisinopril (Lisinopril 20 Mg Tablet) 20 mg PO DAILY [facility]; Protocol Last Admin: 05/21/23 08:47 Dose: 20 mg Documented By: SHLOMO Morphine Sulfate (Morphine Sulfate 2 Mg/Ml Cartridge) 2 mg IVPUSH Q4H PRN; Protocol PRN Reason: Pain, Severe (Pain Scale 7-10) Last Admin: 05/21/23 09:43 Dose: 2 mg Documented By: SHLOMO Ondansetron HCl (Ondansetron Hcl 4 Mg/2 Ml Vial) 4 mg IVPUSH ONCE PRN PRN Reason: Nausea and Vomiting Oxybutynin Chloride (Oxybutynin Chloride Er 5 Mg Tab.Er.24) 10 mg PO DAILY [facility] Last Admin: 05/21/23 08:47 Dose: Not Given Documented By: SHLOMO Non-Admin Reason: Patient Refused Sodium Chloride (0.9 % Sodium Chloride Flush 3 Ml Syringe) 3 ml IVFLUSH QSHIFT [facility] Last Admin: 05/21/23 08:48 Dose: Not Given Documented By: SHLOMO Non-Admin Reason: IV Running Labs 05/19/23 07:07 05/18/23 10:53 Procedures Date of Service Date of Service: 05/22/23 Progress Note: A&P Assessment and plan (1) Acute urinary retention: Status: Acute Assessment and Plan: feels well looks comfortable seen by Urology - clamping of Mccray has large muscular defect in rectovaginal septum c/w rectocoele as per Dr. Vega - will benefit from pessary, repair of pelvic floor will eventually refer to Urogyne in [facility] possible dc home today? As per Urology, to go home with Mccray and to follow-up with him in 2 weeks Time Spent With Patient Time: Total time managing care of this patient today ____ minutes. Quality Stroke Does the patient have a stroke diagnosis?: No VTE Prior VTE?: No VTE Risk Level:: Medical - moderate - high VTE Device Contraindication: N/A - Device Ordered VTE Drug Contraindication: N/A - Med Ordered
--- NOTE | 2023-05-21 14:53 | MHC.CM.PN ---
PT NOT YET MEDICALLY CLEARED DCP REMAINS HOME WITH NO SERVICES VIA FAMILY TRANSPORT
[2023-05-21 14:59] VITALS: BP 119/75; PULSE 66; RESP 16; TEMP 36.2; O2SAT 94
[2023-05-21 19:34] VITALS: BP 106/71; PULSE 55; RESP 16; TEMP 36.1; O2SAT 99
[2023-05-21] MEDS: Psyllium seed 3.7 GM PACKET PO (21:32)
[2023-05-22] MEDS: Dextrose 5 % and 0.9 % NaCl 1,000 ML 60 ML IVCONT (01:16)
--- NOTE | 2023-05-22 02:32 | PC.NURSE ---
Pt stating she is feeling some bladder spasms that she has felt before when she gets UTIs. MD notifed- repeat UA ordered. Pt states heat packs help - offered and accepted heat packs. Upon rechecking on pt. pt asleep at this time.
[2023-05-22 02:42] LABS: Appearance Urine Clear; Color Urine Yellow; Glucose Urine UA Negative (Negative); Leukocyte Esterase Urine Negative (Negative); Nitrite Urine Negative (Negative); PH 6.5 (5.0-9.0); Specific Gravity - Urine <= 1.005 (1.005-1.025); UMIC TRIGGER UA YES; Urine Blood Moderate (2+) (Negative); Urine Ketones Negative (Negative); Urine Protein Negative (Neg-Trace)
[2023-05-22 03:08] LABS: Bacteria Urine None Seen (None Seen); Hyaline Casts Urine 0-2 /LPF (0-2); RBC Urine 0-2 /HPF (0-2); Squamous Epithelial Cell Urine 0-2 /HPF (0-2); WBC Urine 0-5 /HPF (0-5)
[2023-05-22 03:31] VITALS: BP 159/89; PULSE 68; RESP 16; TEMP 36.3; O2SAT 100
[2023-05-22] MEDS: Morphine Sulfate 2 MG/ML CARTRIDGE IVPUSH ×2 (03:37→09:02)
[2023-05-22 07:23] VITALS: BP 159/85; PULSE 61; RESP 16; TEMP 36.1; O2SAT 100
[2023-05-22 09:02] VITALS: RESP 19
[2023-05-22] MEDS: Psyllium seed 3.7 GM PACKET PO (09:03)
[2023-05-22] MEDS: Levothyroxine Sodium 88 MCG TABLET PO (09:03)
[2023-05-22] MEDS: lisinopriL 20 MG TABLET PO (09:03)
--- NOTE | 2023-05-22 10:08 | P.PNGS_ITS ---
Subjective Subjective Date of Service: 05/22/23 Interval history: Feels better More comfortable with regards to her pelvis Mccray in place Physical Exam 2 Vital Signs: Vital Signs: Last Vital Signs Temp 96.9 F 05/22/23 07:23 Pulse 61 05/22/23 07:23 Resp 19 05/22/23 09:02 BP 159/85 H 05/22/23 07:23 Pulse Ox 100 05/22/23 07:23 O2 Del Method Room Air 05/22/23 07:23 BMI result Body Mass Index 21.6 Const: General: comfortable and no acute distress Resp: Effort & Inspection: normal respiratory effort Cardio: Rate: regular rate GI: Palpation (GI): Soft to palpation, not firm, nontender and no guarding Objective Data Active Medications Acetaminophen (Acetaminophen 325 Mg Tablet) 650 mg PO ONCE PRN PRN Reason: Pain, Mild (Pain Scale 1-3) Acetaminophen (Acetaminophen 325 Mg Tablet) 650 mg PO Q6H PRN PRN Reason: headache Dextrose/Sodium Chloride (D5ns) 1,000 mls @ 60 mls/hr IVCONT .[id number] [facility]S [facility] 234 BEDS AT [facility] Last Admin: 05/22/23 01:16 Dose: 60 mls/hr Documented By: ROSALEE Levothyroxine Sodium (Levothyroxine Sodium 88 Mcg Tablet) 88 mcg PO DAILY [facility] 234 BEDS AT [facility] Last Admin: 05/22/23 09:03 Dose: 88 mcg Documented By: COTEMA Lisinopril (Lisinopril 20 Mg Tablet) 20 mg PO DAILY [facility] 234 BEDS AT [facility]; Protocol Last Admin: 05/22/23 09:03 Dose: 20 mg Documented By: COTEMA Morphine Sulfate (Morphine Sulfate 2 Mg/Ml Cartridge) 2 mg IVPUSH Q4H PRN; Protocol PRN Reason: Pain, Severe (Pain Scale 7-10) Last Admin: 05/22/23 09:02 Dose: 2 mg Documented By: COTEMA Ondansetron HCl (Ondansetron Hcl 4 Mg/2 Ml Vial) 4 mg IVPUSH ONCE PRN PRN Reason: Nausea and Vomiting Oxybutynin Chloride (Oxybutynin Chloride Er 5 Mg Tab.Er.24) 10 mg PO DAILY [facility] 234 BEDS AT [facility] Last Admin: 05/22/23 09:03 Dose: Not Given Documented By: COTEMA Non-Admin Reason: Patient Refused Psyllium Hydrophilic Mucilloid (Psyllium Seed 3.7 Gm Packet) 3.7 gm PO BID COUNTS INCLUDE 234 BEDS AT THE [facility] Last Admin: 05/22/23 09:03 Dose: 3.7 gm Documented By: JANINE Sodium Chloride (0.9 % Sodium Chloride Flush 3 Ml Syringe) 3 ml IVFLUSH QSHIFT COUNTS INCLUDE 234 BEDS AT THE [facility] Last Admin: 05/22/23 07:41 Dose: Not Given Documented By: JANINE Non-Admin Reason: IV Running Labs 05/19/23 07:07 05/18/23 10:53 Labs: Laboratory Results - last 24 hr 05/22/23 02:31 Urine Color Yellow Urine Appearance Clear Urine pH 6.5 Ur Specific [place] <= 1.005 Urine Protein Negative Urine Glucose (UA) Negative Urine Ketones Negative Urine Blood Moderate (2+) H Urine Nitrite Negative Ur Leukocyte Esterase Negative Urine RBC 0-2 Urine WBC 0-5 Ur Squamous Epith Cells 0-2 Urine Bacteria None Seen Hyaline Casts 0-2 Procedures Date of Service Date of Service: 05/22/23 Progress Note: A&P Assessment and plan (1) Acute urinary retention: Status: Acute Assessment and Plan: It appears she has multiple pelvic floor issues including prolapse, rectocele with subsequent urinary retention Seen by Urology - will benefit from a pessary and uro-gyne referral I explained this to the patient She goes home with a Mccray and she will uncap this to empty She is to see Dr. Vega in 2 weeks - he states that he will arrange for uro-gyne follow-up for the patient Patient comfortable with the plan She says she is ready to go home (2) Rectocele: Status: Acute Time Spent With Patient Time: Total time managing care of this patient today ____ minutes. Quality Stroke Does the patient have a stroke diagnosis?: No VTE Prior VTE?: No VTE Risk Level:: Medical - moderate - high VTE Device Contraindication: N/A - Device Ordered VTE Drug Contraindication: N/A - Med Ordered
--- NOTE | 2023-05-25 14:01 | PM.DS ---
DS: Providers Provider Date of Service: 05/22/23 Date of admission: 05/18/23 14:33 Primary care physician: Leonardo Perez PA-C Attending physician on admission: Damian King Consults: 05/18/23 18:27 Consult to Urology Routine Consulting Provider: Howie Pepper Reason for consultation: urinary retention Attending physician on discharge: Damian King DS: Diagnosis Discharge Diagnosis (1) Acute urinary retention: Status: Acute (2) Rectocele: Status: Acute DS: Summary Hospital Course Hospital Course: HPI AT ADMISSION: Basilia Sawyer is a 52 year old female in the ER because of pain near the anus anteriorly. She actually came initially because of what she says was severe constipation. She has a long history of chronic constipation. However, she says that she was starting to feel bloated and was having some abdominal pain so she decided to come to the emergency room. She says she has had a good bowel movement in several days. She had some enemas in the ER with note of evacuation of a lot of stool and she feels much better. However, she says that she continues to have this pain was to the front of her anus. She had a CAT scan showing what appeared to be an abscess in the perianal area. 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 She denies any bleeding from the rectum or the vagina. She had a history of cervicitis after a LEEP procedure last year. HOSPITAL COURSE: She did have a CT scan because of her complaints of constipation with abdominal pain. This scan suggested an abscess in the anterior anal canal appearing to be in the rectovaginal septum. She did have some tenderness on the area. She was admitted to the surgical service for further treatment of the abscess. She was started on IV abx. It was also recommended to proceed with an exam under anesthesia to see if we can drain the abscess. On 05/18/23, Exam under anesthesia, aspiration of perineum and rectovaginal septum in multiple areas with gauge [address] King without complication. No abscess was found. She was started on a bowel regimen for her chronic constipation. Her antibiotic was discontinued as no absess was found. She developed bladder spasms post operatively and was started on ditropan with some relief. Urology was consulted. She also developed urinary retention and a verduzco catheter was inserted. It appears she has multiple pelvic floor issues including prolapse, rectocele with subsequent urinary retention and will benefit from a pessary and uro-gyne referral upon discharge. She had improvement of her pelvic discomfort. She was stable for dc and discharge to home on 05/22/23. She was discharged with her verduzco in place and was educated on how to uncap to empty with urology follow up in 2 weeks. She was discharged on metamucil. Time Attestation Discharge coordination time: Less than 30 minutes Quality: Safe Use of Opioids Does Pt have an Active Cancer Diagnosis on the Problem List?: No Quality: Stroke Does the patient have a stroke diagnosis?: No Physical Exam Vital Signs: Vital Signs: Last Vital Signs Temp 96.9 F 05/22/23 07:23 Pulse 61 05/22/23 07:23 Resp 19 05/22/23 09:02 BP 159/85 H 05/22/23 07:23 Pulse Ox 100 05/22/23 07:23 O2 Del Method Room Air 05/22/23 07:23 BMI result Body Mass Index 21.6 Const: General: comfortable and no acute distress Resp: Effort & Inspection: normal respiratory effort GI: Inspection: No distended Palpation (GI): Soft to palpation and nontender Discharge Plan Discharge Anticipated Discharge Date/Time: 05/19/23 10:00 Patient Disposition: Home, Self-Care Discharge Diagnosis: constipation, urinary retention Referrals: Brandon Vega MD [Physician] - 2 Weeks Discharge Medications: New Metamucil 3.4 gram/5.4 gram powder 1 tbsp PO BID Qty: 660 0RF Rx Instructions: mix into at least 8 oz of water or juice before administering Continued cholecalciferol (vitamin D3) 125 mcg (5,000 unit) capsule 125 mcg PO DAILY Qty: 30 5RF levothyroxine 88 mcg tablet 88 mcg PO DAILY 30 Days Qty: 30 1RF lisinopril 20 mg tablet 20 mg PO DAILY 30 Days Qty: 30 1RF (DME) Blood Pressure Cuff Misc See Rx Instructions .ROUTE .MEDSUPPLY Qty: 1 0RF Rx Instructions: As directed No Action phenazopyridine 100 mg tablet 100 mg PO TID Qty: 6 0RF nitrofurantoin monohyd/m-cryst [Macrobid] 100 mg capsule 100 mg PO BID 7 Days Qty: 14 0RF Rx Instructions: must administer with a meal/food Discharge Orders: Discharge Order (Routine); Ordered 05/22/23 Ordered By: Damian King Diet: Advance to usual diet Activity on Discharge: No heavy lifting Stand Alone Forms: Patient Portal Discharge page Activity Restrictions/Additional Instructions: pt to see Dr Vega in 2 weeks cap Verduzco and empty when bladder feels full Care Plan Goals: control constipation Health Concerns: chronic constipation thyroid disease Plan of Treatment: fiber supplement Assessment: doing well Discharge Date/Time: 05/22/23 13:34
== END 2023-05-22 13:34 | disposition home or self-care (01) | DRG 761 ==
LOC: HO.ED 15:29 → HO.EDOVER 16:01 → HO.S3 17:38
PROVIDERS: Internal Medicine; Registered Nurse Emergency; Admitting Provider Surgery; Emergency Provider Emergency Medicine; PCP Physician Assistant; Visit Provider Surgery
PROC: 0WJR7ZZ Inspection of Genitourinary Tract, Via Natural or Artificial Opening Approach (ICD-10-PCS; principal; 2023-05-18 16:00)
DX: N81.4 Uterovaginal prolapse, unspecified (principal); J44.9 Chronic obstructive pulmonary disease, unspecified; E06.3 Autoimmune thyroiditis; K59.09 Other constipation; R33.9 Retention of urine, unspecified; F17.210 Nicotine dependence, cigarettes, uncomplicated; Z71.6 Tobacco abuse counseling; Z79.890 Hormone replacement therapy; Z79.899 Other long term (current) drug therapy
CPT/HCPCS: 36415; 74177; 80053; 81001; 82272; 85025; 99285; C1758; J0665; J0696; J1100; J1836; J2250; J2270; J2405; J2704; J3010; J7120; Q9967

== ENCOUNTER → 2023-05-18 14:33 | Outpatient (BNV) | payer OTHER, SELFPAY | PROVIDERS: Admitting Provider Surgery; Emergency Provider Emergency Medicine; PCP Physician Assistant; Visit Provider Surgery | DX: R33.8 Other retention of urine (principal) | CPT/HCPCS: 45990; 99222; 99232; 99499 ==

== ENCOUNTER → 2023-05-18 14:33 | Outpatient (BNV) | payer OTHER, SELFPAY | PROVIDERS: Admitting Provider Surgery; Emergency Provider Emergency Medicine; PCP Physician Assistant; Visit Provider Urology | DX: R33.8 Other retention of urine (principal) | CPT/HCPCS: 99222 ==

== ENCOUNTER 2023-05-23 14:51 | Outpatient (AMB) | payer OTHER, SELFPAY ==
--- NOTE | 2023-05-23 15:07 | HO.NEPHOV ---
HPI HPI Comments History of Present Illness Details I had the delight of seeing Basilia who is 53 years of age. She has E Danlos syndrome. She has had multiple complaints. She had already seen multiple specialty providers. She has seen shear grinder operator for elevated TSH. She has been having generalized fatigue. She had been regularly followed up by Gastroenterology. One of her recent workup was significant for low phosphorus and hence this consultation. She has had a long history of abdominal pain, diarrhea, greasy stools, occasional palpitations, abdominal bloating. She was also seen by Cardiology who had investigated her with echocardiogram which showed normal structure of the heart. Holter monitor shows rare PVCs. She describes very atypical symptoms including feeling like air bubbles popping or in her chest. She also complains of chest discomfort going down from lower retrosternal area although a around her left breast into her armpit and into her neck. Symptoms are not exertional in nature. She also feels like there is increased palpitations. She also continues to have dizziness and lightheadedness but has not had a tilt-table test. Lung CT scan was performed for cancer screening which shows coronary calcification. Patient stated she had a possible perineal abscess. Patient states that during the surgery no perianal abscess was found, but patient does have a large defect in the muscular layer of the rectovaginal septum with bogginess of mucosa without a fistula. Due to urinary retention, a Mccray catheter was inserted. Later patient went to the emergency room complaining of hematuria and dysuria.Initially she thought that this was secondary to irritation from the Mccray catheter since this the 1st time that she has a Mccray. At that time she was having hematuria and worsening abdominal pain radiating towards the left flank with a fever of 101.2. She also has history vitamin-D deficiency and had not been on any replacements because she could not tolerate high dose of ergocalciferol. Her renal functions are normal. She was also complaining of subjective fever with questionable dysuria. [facility] Medical History Rectocele Perineal abscess Diarrhea Pelvic pain Elevated cholesterol Unintentional weight loss Fever of unknown origin History of cervical cancer Family history of colon cancer Nicotine dependence, cigarettes, uncomplicated HTN (hypertension) Near syncope Family history of pancreatic cancer COPD (chronic obstructive pulmonary disease) Dysphagia Vitamin D deficiency Hypothyroidism (~1999) Surgical History History of endometrial ablation History of tonsillectomy (~1976) History of History of throat surgery (~2011) Family History Mother Alzheimer's dementia CVD (cardiovascular disease) Maternal Grandfather Pancreatic cancer Social History Household Members: Children Household Members Other:: lives at home with 20-year-old daughter Housing: Apartment Do you presently have visiting nurse or other home services: No Alcohol intake: never Comment: vaginal area Patient Tobacco Use Status: Never used Tobacco Tobacco use type: Cigarette Cigarette Packs Per Day: 0.5 Cigarettes Per Day: 5 Years Smoked: (onset 11, 1ppd x 40yrs, now 1/4ppd, 40pyh) e-Cigarette/Vaping Use: Never Used Second Hand Smoke Exposure: Yes Substance Use Type: Marijuana Advance Directives Date on File: 09/11/22 service: No Current occupational status: disabled Cognitive needs: No Hearing needs: No Vision needs: No Female Reproductive History Menstrual Age of Menarche: 11 Vital Signs 05/23/23 15:08 Height 5 ft 5 in Weight 132 lb 2 oz BMI 22.0 BP 130/80 Blood Pressure Location Rt brachial Position Sitting Pulse 113 H Pulse Source Pulse Oximeter Pulse Oximetry (%) 97 Oxygen Delivery Method Room Air Physical Exam Vital Signs: Last Vital Signs Pulse 113 H 05/23/23 15:08 BP 130/80 05/23/23 15:08 Pulse Ox 97 05/23/23 15:08 Oxygen Delivery Method Room Air 05/23/23 15:08 BMI result Body Mass Index 22.0 Const General: comfortable and no acute distress Orientation/consciousness: patient oriented x3 HEENT Head: Yes normocephalic Mouth: Normal oral and palatal mucosa present Eyes EOM: EOMs intact bilaterally Neck Neck: Yes supple Resp Auscultation: clear to auscultation bilaterally Cardio Jugular venous distension: no JVD Rate: regular rate GI Palpation (GI): Soft to palpation Auscultation: normal bowel sounds General: Yes no CVA tenderness Back/Spine/Pelvis Back: no CVA tenderness Skin General skin exam: no rashes or lesions noted Neuro General: patient oriented x3 and moves all extremities Extrem General: Yes no pedal edema Assessment & Plan Assessment & Plan (1) Fever: Code(s): R50.9 - Fever, unspecified Qualifiers: Fever type: unspecified Qualified Code(s): R50.9 - Fever, unspecified (2) Hypophosphatemia: Code(s): E83.39 - Other disorders of phosphorus metabolism Plan I sent her for a urine culture and empirically gave her antibiotics. I ordered workup for hypophosphatemia. She is known to have vitamin-D deficiency. We will review serum biochemical parameters including bicarbonate, blood urea nitrogen, creatinine, glucose, calcium and magnesium levels. Reviewing the serum calcium can identify 2 most common causes of hypophosphatemia. If the calcium is high we will measure parathyroid hormone to assess hyperparathyroidism. Even in severe hyperparathyroidism serum phosphorous is never below 1.5-2. If the calcium is low we measured 25 hydroxy vitamin-D to assess for vitamin-D deficiency. We shall check for any renal phosphorus wasting. If her subsequent lab work all come back with an acceptable normal range she can have further follow-up with her primary care physician. Further management is pending evolving data. All questions answered. Orders: Orders Parathyroid Hormone Intact 05/23/23 R50.9 - Fever, unspecified, E83.39 - Other disorders of phosphorus metabolism Magnesium 05/23/23 R50.9 - Fever, unspecified, E83.39 - Other disorders of phosphorus metabolism Vitamin D 25-OH Total 05/23/23 R50.9 - Fever, unspecified, E83.39 - Other disorders of phosphorus metabolism Osmolality Urine 05/23/23 R50.9 - Fever, unspecified, E83.39 - Other disorders of phosphorus metabolism Osmolality, Serum 05/23/23 R50.9 - Fever, unspecified, E83.39 - Other disorders of phosphorus metabolism Creatinine Urine 05/23/23 R50.9 - Fever, unspecified, E83.39 - Other disorders of phosphorus metabolism Calcium 05/23/23 R50.9 - Fever, unspecified, E83.39 - Other disorders of phosphorus metabolism Phosphorus 05/23/23 R50.9 - Fever, unspecified, E83.39 - Other disorders of phosphorus metabolism Electrolytes 05/23/23 R50.9 - Fever, unspecified, E83.39 - Other disorders of phosphorus metabolism Blood Urea Nitrogen 05/23/23 R50.9 - Fever, unspecified, E83.39 - Other disorders of phosphorus metabolism Creatinine 05/23/23 R50.9 - Fever, unspecified, E83.39 - Other disorders of phosphorus metabolism Hemoglobin A1c 05/23/23 R50.9 - Fever, unspecified, E83.39 - Other disorders of phosphorus metabolism Phosphorus Urine Random 05/23/23 R50.9 - Fever, unspecified, E83.39 - Other disorders of phosphorus metabolism Urine Culture 05/23/23 R50.9 - Fever, unspecified, E83.39 - Other disorders of phosphorus metabolism Medications: New levofloxacin 500 mg PO DAILY 7 tabs 0RF 7 days Coding Level of Care Code New Pt Level 4 (52926) Diagnoses Fever, unspecified fever cause R50.9 Fever type: unspecified Hypophosphatemia E83.39 Results Reviewed Nephrology Results: Hgb 12.8 g/dl (12.0-16.0) 05/24/23 WBC 6.8 X10*3/uL (4.8-10.8) 05/24/23 Plt Count 315 X10*3/uL (160-400) 05/24/23 Sodium 138 mmol/L (135-145) 05/31/23 Potassium 3.5 mmol/L (3.3-5.1) 05/31/23 Chloride 103 mmol/L (96-108) 05/31/23 Carbon Dioxide 28 mmol/L (22-29) 05/31/23 BUN 11 mg/dL (9-16) 05/31/23 Creatinine 0.74 mg/dL (0.5-1.4) 05/31/23 Calcium 9.5 mg/dL (8.4-10.2) 05/31/23 Phosphorus 2.9 mg/dL (2.7-4.5) 05/31/23 PTH Intact 73.3 pg/mL (8.7-77.1) 05/31/23 Urine Protein Negative mg/dL (Neg-Trace) 05/31/23 Urine Creatinine 71.58 mg/dL 05/23/23
[2023-05-23 15:08] VITALS: BP 130/80; PULSE 113; O2SAT 97; BMI 22.0
== END 2023-05-23 15:54 | disposition home or self-care (01) ==
PROVIDERS: PCP Physician Assistant; Visit Provider Internal Medicine Nephrology
DX: R50.9 Fever, unspecified (principal); E83.39 Other disorders of phosphorus metabolism
CPT/HCPCS: 99204

== ENCOUNTER 2023-05-23 14:51 | Outpatient (REF) | payer OTHER, SELFPAY ==
[2023-05-23 18:04] LABS: Estimated Average Glucose 103 mg/dL; Hemoglobin A1c % 5.2 % (<6.0)
[2023-05-23 18:26] LABS: Osmolality Urine 381 mosm/kg (373-1093)
[2023-05-23 18:31] LABS: Creatinine Urine 71.58 mg/dL; Phosphorus Urine Random 41.6 mg/dL
[2023-05-23 18:38] LABS: Osmolality, Serum 297 mosm/kg (281-305)
[2023-05-23 18:50] LABS: Anion Gap 12 (12-20); Blood Urea Nitrogen 7 mg/dL (9-16); Calcium 9.8 mg/dL (8.4-10.2); Carbon Dioxide 29 mmol/L (22-29); Chloride 103 mmol/L (96-108); Estimated Glomerular Filt Rate > 60; Magnesium 2.2 mg/dL (1.6-2.6); Phosphorus 3.5 mg/dL (2.7-4.5); Potassium 3.5 mmol/L (3.3-5.1); Sodium 140 mmol/L (135-145)
[2023-05-23 18:51] LABS: Parathyroid Hormone Intact 94.5 pg/mL (8.7-77.1)
== END 2023-05-23 14:52 | disposition home or self-care (01) ==
LOC: HO.LAB 14:51
PROVIDERS: PCP Physician Assistant; Visit Provider Internal Medicine Nephrology
DX: R50.9 Fever, unspecified (principal); E83.39 Other disorders of phosphorus metabolism
CPT/HCPCS: 36415; 80051; 82306; 82310; 82565; 82570; 83036; 83735; 83930; 83935; 83970; 84100; 84105; 84520; 87086; 99202

== ENCOUNTER 2023-05-24 20:23 | Emergency (ER) | payer OTHER, SELFPAY ==
[2023-05-24 20:38] VITALS: BP 146/100; PULSE 97; RESP 18; TEMP 36.6; O2SAT 100; BMI 21.6
--- NOTE | 2023-05-24 20:40 | ED_ITS ---
HPI - General Adult General Chief complaint: Urogenital-Female Stated complaint: bloody urine in winters catheter Time Seen by Provider: 05/24/23 23:51 Source: patient Mode of arrival: ambulatory Limitations: no limitations History of Present Illness HPI narrative: Patient comes to the emergency room complaining of hematuria and dysuria. Patient has a Winters catheter. Patient states that on May 18 patient had an abscess for a possible perineal abscess. Patient states that during the surgery no perianal abscess was found, but patient does have a large defect in the muscular layer of the rectovaginal septum with bogginess of mucosa without a fistula. Due to urinary retention, a Winters catheter was inserted. Patient states that for the last couple of days patient has had dysuria. Initially she thought that this was secondary to irritation from the Winters catheter since this the 1st time that she has a Winters. However, today she started having hematuria and worsening abdominal pain radiating towards the left flank. Patient states that yesterday she had a fever of 101.2, has been taking Tylenol and Motrin to help with the pain fever and chills. Related Data Previous Rx's Medication Instructions Recorded miscellaneous medical supply #1 ea 12/28/21 (Blood Pressure Cuff) cholecalciferol (vitamin D3) 125 125 mcg PO DAILY #30 caps 06/20/22 mcg (5,000 unit) capsule levothyroxine 88 mcg tablet 88 mcg PO DAILY 30 days #30 tabs 04/21/23 lisinopril 20 mg tablet 20 mg PO DAILY 30 days #30 tabs 05/15/23 psyllium husk 3.4 gram/5.4 gram 1 tbsp PO BID #660 grams 05/18/23 oral powder (Metamucil) levofloxacin 500 mg tablet 500 mg PO DAILY 7 days #7 tabs 05/23/23 levofloxacin 500 mg tablet 500 mg PO DAILY #9 tabs 05/25/23 phenazopyridine 100 mg tablet 100 mg PO TID 6 doses #6 tabs 05/25/23 Allergies Allergy/AdvReac Type Severity Reaction Status Date / Time amoxicillin [From AUGMENTIN] Allergy Severe Anaphylaxis Verified 05/23/23 15:12 clavulanic acid Allergy Severe Anaphylaxis Verified 05/23/23 15:12 [From AUGMENTIN] banana Allergy Unknown Unknown Verified 05/23/23 15:12 ketorolac [From Toradol] Allergy Unknown Anaphylaxis Verified 05/23/23 15:12 kiwi Allergy Unknown Unknown Verified 05/23/23 15:12 prochlorperazine Allergy Unknown INVOLUNTARY Verified 05/23/23 15:12 [From COMPAZINE] SPASMS Review of Systems 2 Review of Systems: Constitutional : No Weight loss, complaining of fever and chills No Night Sweats, No Fatigue, No Malaise ENT/Mouth : No Hearing loss, No Ear Pain, No Nasal Congestion, No Sinus Pain, No Hoarseness, No sore throat, No Rhinorrhea, No Swallowing Difficulty Eyes: No Eye Pain, No Swelling, No Redness, No Foreign Body, No Discharge, No Vision Changes Cardiovascular : No Chest Pain, No SOB, No Dyspnea on Exertion, No Orthopnea, No Edema, No Palpitations Respiratory : No Cough, No Sputum, No Wheezing, No Smoke Exposure, No Dyspnea Gastrointestinal : No Nausea, No Vomiting, No Diarrhea, No Constipation, No abdominal Pain, No Hematochezia, No Melena Genitourinary : Complaining of Winters catheter irritation, hematuria, dysuria No Urinary Incontinence, No Urgency, left side Flank Pain, No Urinary Flow Changes, No Hesitancy Musculoskeletal : No joint pain, No Myalgias, No Joint Swelling Skin : No Skin Lesions, No rash Neuro : No Weakness, No Numbness, No Paresthesias, No Loss of Consciousness, No Dizziness, No Headache Psych : No Anxiety/Panic, No Depression, No SI/HI/AH/VH, No Social Issues, Heme/Lymph: No Bruising, No Bleeding,No Lymphadenopathy Endocrine : No Polyuria, No Polydipsia, No Temperature Intolerance [facility] Past Medical History Medical History Rectocele Perineal abscess Diarrhea Pelvic pain Elevated cholesterol Unintentional weight loss Fever of unknown origin History of cervical cancer Family history of colon cancer Nicotine dependence, cigarettes, uncomplicated HTN (hypertension) Near syncope Family history of pancreatic cancer COPD (chronic obstructive pulmonary disease) Dysphagia Vitamin D deficiency Hypothyroidism (~1999) Surgical History History of endometrial ablation History of tonsillectomy (~1976) History of History of throat surgery (~2011) Family History Family History Mother Alzheimer's dementia CVD (cardiovascular disease) Maternal Grandfather Pancreatic cancer Social History Social History Household Members: Children Household Members Other:: lives at home with 20-year-old daughter Housing: Apartment Do you presently have visiting nurse or other home services: No Alcohol intake: never Comment: vaginal area Patient Tobacco Use Status: Never used Tobacco Tobacco use type: Cigarette Cigarette Packs Per Day: 0.5 Cigarettes Per Day: 5 Years Smoked: (onset 11, 1ppd x 40yrs, now 1/4ppd, 40pyh) e-Cigarette/Vaping Use: Never Used Second Hand Smoke Exposure: Yes Substance Use Type: Marijuana Advance Directives: Yes Advance Directives on File: Yes Advance Directives Date on File: 09/11/22 service: No Current occupational status: disabled Cognitive needs: No Hearing needs: No Vision needs: No Physical Exam ED Vital Signs: Vital Signs - 24 hr 05/24/23 20:38 05/25/23 00:02 05/25/23 00:35 Temperature 97.8 F 97.9 F Pulse Rate 97 98 Respiratory Rate 18 18 Blood Pressure 146/100 H 164/111 H 150/98 H Pulse Oximetry 100 100 Oxygen Delivery Method Room Air Room Air BMI result Body Mass Index 21.6 Const Other: Appearance: Alert. Oriented X3. No acute distress. Eyes: Pupils equal, round and reactive to light. ENT: Pharynx normal. Neck: Normal inspection. Neck supple. No lymph nodes noted. No crepitus CVS: Normal heart rate and rhythm. Pulses normal. Normal S1 and S2 Respiratory: No respiratory distress. Breath sounds normal. No Wheezing. No rales Abdomen: Soft and nontender. No rigidity. No distention. : Winters catheter in place, hematuria in urine collection bag Skin: Skin warm and dry. Normal skin color. Normal skin turgor. Extremities: No lower extremity edema. No Lacerations. No Rash Neuro: Oriented X 3. No motor deficit. No sensory deficit. Moving all extremities. No slurred speech. CN 2 through 12 grossly intact Psych: calm, cooperative, normal affect Course Course Course Narrative: This is an RME: Additional HPI, ROS, PE not included below will be deferred to primary provider. This is a 53-year-old female presenting to the emergency department due to hematuria, diffuse abdominal pain. Patient was seen and admitted 1 week ago due to concern for severe constipation as well as ? Abscess in the perianal area. Dr. King took her to the OR where they found no abscess however large defect in the muscle layer of the rectovaginal septum with bogginess of mucosa without fistula. Dr. Rivera called in an expect, was only told that she was having hematuria and she recommended catheter irrigation change or 3 way CBI. Patient reports that she is also having diffuse abdominal radiating into left flank, deep vaginal pain, fevers, and chills. Given these other findings, patient likely will need labs, UA, further ER workup. Plan: Labs Medical Decision Making Medical Decision Making [facility] Narrative: -patient's catheter was irrigated, with a few flushes, the urine became completely clear. We rinsed the bladder with 1 L. Patient tolerated well the procedure. -urinalysis has trace leukocyte esterase and a small amount of white blood cell counts, no bacteria. However, given the patient's symptoms, we will treat as UTI. Since patient also has left flank pain, clinically patient has pyelonephritis. -patient has not had any blood pressure read, normal hematology. Afebrile in the ED, sepsis not suspected. -patient was given levofloxacin and phenazopyridine in the ED. Differential Diagnosis Differential Diagnoses: The differential diagnosis associated with the presentation includes (UTI, pyelonephritis, hematuria) Lab Data [facility] Lab Attestation statement: I reviewed the patient's lab results. 05/24/23 20:57 05/24/23 20:57 Labs: Lab Results 05/24/23 05/25/23 Range/Units 20:57 00:25 WBC 6.8 (4.8-10.8) X10*3/uL RBC 4.34 (4.20-5.50) X10*6/uL Hgb 12.8 (12.0-16.0) g/dl Hct 37.5 (37.0-47.0) % MCV 86.4 (80.0-98.0) fL MCH 29.5 (27.0-33.0) pg MCHC 34.1 (31.0-35.0) g/dl RDW 12.8 (11.0-16.0) % Plt Count 315 (160-400) X10*3/uL MPV 9.0 L (9.4-12.3) fL Immature Gran % (Auto) 0.1 (0.0-0.4) % Neut % (Auto) 52.4 (45-73) % Lymph % (Auto) 39.1 (20-40) % Saline % (Auto) 4.9 (2-11) % Eos % (Auto) 2.9 (0-4) % Baso % (Auto) 0.6 (0-2) % Lymph # (Auto) 2.7 (1.2-4.9) X10*3/uL Saline # (Auto) 0.3 (0.1-1.2) X10*3/uL Eos # (Auto) 0.2 (0.0-0.4) X10*3/uL Baso # (Auto) 0.0 (0.0-0.2) X10*3/uL Abs Immat Gran (auto) 0.01 (0.00-0.03) X10*3/uL Absolute Neuts (auto) 3.6 (2.0-8.3) x10*3/uL Absolute Nucleated RBC 0.000 (0.0-0.012) X10*3/uL Nucleated RBC % (auto) 0.0 (0.0-0.2) /100WBC Sodium 138 (135-145) mmol/L Potassium 3.5 (3.3-5.1) mmol/L Chloride 104 (96-108) mmol/L Carbon Dioxide 26 (22-29) mmol/L Anion Gap 12 (12-20) BUN 9 (9-16) mg/dL Creatinine 0.97 (0.5-1.4) mg/dL Estim Creat Clear Calc 59.6 Estimated GFR 60 Random Glucose 185 H (60-115) mg/dL Calcium 9.6 (8.4-10.2) mg/dL Total Bilirubin 0.4 (0.0-1.0) mg/dL Direct Bilirubin 0.1 (0.0-0.5) mg/dL AST 14 (5-31) U/L ALT 18 (0-31) U/L Alkaline Phosphatase 47 (39-117) U/L Total Protein 7.0 (6.5-8.0) g/dL Albumin 4.1 (3.5-5.0) g/dL Lipase 12 (8-78) U/L Urine Color Red A Urine Appearance Cloudy Urine pH 6.5 (5.0-9.0) Ur Specific [place] 1.015 (1.005-1.025) Urine Protein 30 (1+) H (Neg-Trace) mg/dL Urine Glucose (UA) Negative (Negative) mg/dL Urine Ketones Negative (Negative) mg/dL Urine Blood Large (3+) H (Negative) Urine Nitrite Negative (Negative) Ur Leukocyte Esterase Trace H (Negative) Urine RBC >20 H (0-2) /HPF Urine WBC 6-10 H (0-5) /HPF Ur Squamous Epith Cells 0-2 (0-2) /HPF Urine Bacteria None Seen (None Seen) Hyaline Casts 0-2 (0-2) /LPF Discharge Plan Discharge Clinical Impression: UTI (urinary tract infection) Patient Disposition: Home, Self-Care Instructions: Urinary Tract Infection in Women (ED) Additional Instructions: The medication phenazopyridine will make your urine look very orange/red. Please follow-up with Urology as scheduled. Please follow-up with your primary care physician tomorrow. If you have any worsening or new symptoms, please return to the emergency room or call 911 Prescriptions: New levofloxacin 500 mg tablet 500 mg PO DAILY Qty: 9 0RF phenazopyridine 100 mg tablet 100 mg PO TID Qty: 6 0RF No Action cholecalciferol (vitamin D3) 125 mcg (5,000 unit) capsule 125 mcg PO DAILY Qty: 30 5RF levothyroxine 88 mcg tablet 88 mcg PO DAILY 30 Days Qty: 30 1RF lisinopril 20 mg tablet 20 mg PO DAILY 30 Days Qty: 30 1RF Metamucil 3.4 gram/5.4 gram powder 1 tbsp PO BID Qty: 660 0RF Rx Instructions: mix into at least 8 oz of water or juice before administering (DME) Blood Pressure Cuff Misc See Rx Instructions .ROUTE .MEDSUPPLY Qty: 1 0RF Rx Instructions: As directed levofloxacin 500 mg tablet 500 mg PO DAILY 7 Days Qty: 7 0RF
[2023-05-24 21:01] LABS: MANUAL DIFF FLAG NO
[2023-05-24 21:03] LABS: Basophils Percent Auto 0.6 % (0-2); Eosinophils Absolute Auto 0.2 X10*3/uL (0.0-0.4); Eosinophils Percent Auto 2.9 % (0-4); Hematocrit 37.5 % (37.0-47.0); Hemoglobin 12.8 g/dl (12.0-16.0); Imm Gran Abs Auto 0.01 X10*3/uL (0.00-0.03); Imm Gran Pct Auto 0.1 % (0.0-0.4); Lymphocytes Absolute Auto 2.7 X10*3/uL (1.2-4.9); Lymphocytes Percent Auto 39.1 % (20-40); Mean Corpuscular HGB Conc 34.1 g/dl (31.0-35.0); Mean Corpuscular Hemoglobin 29.5 pg (27.0-33.0); Mean Corpuscular Volume 86.4 fL (80.0-98.0); Monocytes Absolute Auto 0.3 X10*3/uL (0.1-1.2); Monocytes Percent Auto 4.9 % (2-11); Neutrophils Absolute Auto 3.6 x10*3/uL (2.0-8.3); Neutrophils Percent Auto 52.4 % (45-73); Platelet Count 315 X10*3/uL (160-400); Red Blood Count 4.34 X10*6/uL (4.20-5.50); Red Cell Distribution Width 12.8 % (11.0-16.0); White Blood Count 6.8 X10*3/uL (4.8-10.8)
[2023-05-24 21:18] LABS: Alanine Aminotransferase 18 U/L (0-31); Albumin Level 4.1 g/dL (3.5-5.0); Alkaline Phosphatase 47 U/L (39-117); Anion Gap 12 (12-20); Aspartate Amino Transferase 14 U/L (5-31); Bilirubin Direct 0.1 mg/dL (0.0-0.5); Bilirubin Total 0.4 mg/dL (0.0-1.0); Blood Urea Nitrogen 9 mg/dL (9-16); Calcium 9.6 mg/dL (8.4-10.2); Carbon Dioxide 26 mmol/L (22-29); Chloride 104 mmol/L (96-108); Creatinine Clr Calc Pharmacy 59.6; Estimated Glomerular Filt Rate 60; Glucose Random 185 mg/dL (60-115); Lipase 12 U/L (8-78); Potassium 3.5 mmol/L (3.3-5.1); Sodium 138 mmol/L (135-145)
[2023-05-25 00:02] VITALS: BP 164/111; PULSE 98; RESP 18; TEMP 36.6; O2SAT 100
[2023-05-25 00:32] LABS: Appearance Urine Cloudy; Glucose Urine UA Negative (Negative); Leukocyte Esterase Urine Trace (Negative); Nitrite Urine Negative (Negative); PH 6.5 (5.0-9.0); Specific Gravity - Urine 1.015 (1.005-1.025); UMIC TRIGGER UACC YES; Urine Blood Large (3+) (Negative); Urine Ketones Negative (Negative); Urine Protein 30 (1+) mg/dL (Neg-Trace)
[2023-05-25 00:33] LABS: Color Urine Red
[2023-05-25 00:35] VITALS: BP 150/98
[2023-05-25 00:38] LABS: Bacteria Urine None Seen (None Seen); Hyaline Casts Urine 0-2 /LPF (0-2); RBC Urine >20 /HPF (0-2); Squamous Epithelial Cell Urine 0-2 /HPF (0-2); UACC Culture Trigger YES
[2023-05-25] MEDS: levoFLOXacin 500 MG TABLET PO (01:40)
[2023-05-25] MEDS: Phenazopyridine HCL 100 MG TABLET PO (01:40)
[2023-05-25 01:41] VITALS: BP 143/94; PULSE 76; RESP 16; TEMP 36.6; O2SAT 94
== END 2023-05-25 01:45 | disposition home or self-care (01) ==
PROVIDERS: Physician Assistant Medical; Emergency Provider Emergency Medicine; PCP Physician Assistant
DX: N39.0 Urinary tract infection, site not specified (principal); Z79.899 Other long term (current) drug therapy
CPT/HCPCS: 36415; 80048; 80076; 81001; 83690; 85025; 87086; 99283; 99284

== ENCOUNTER → 2023-05-28 13:37 | Outpatient (BNVA) | payer OTHER, SELFPAY | PROVIDERS: PCP Physician Assistant; Visit Provider Urology | DX: R33.8 Other retention of urine (principal); R00.0 Tachycardia, unspecified; Z79.2 Long term (current) use of antibiotics | CPT/HCPCS: 51700 ==

== ENCOUNTER 2023-05-31 10:42 | Outpatient (REF) | payer OTHER, SELFPAY ==
[2023-05-31 12:11] LABS: Appearance Urine Clear; Color Urine Yellow; Glucose Urine UA Negative (Negative); Leukocyte Esterase Urine Negative (Negative); Nitrite Urine Negative (Negative); PH 6.5 (5.0-9.0); Specific Gravity - Urine <= 1.005 (1.005-1.025); Urine Blood Negative (Negative); Urine Ketones Negative (Negative); Urine Protein Negative (Neg-Trace)
[2023-05-31 12:42] LABS: Anion Gap 11 (12-20); Blood Urea Nitrogen 11 mg/dL (9-16); Calcium 9.5 mg/dL (8.4-10.2); Carbon Dioxide 28 mmol/L (22-29); Chloride 103 mmol/L (96-108); Estimated Glomerular Filt Rate > 60; Glucose Random 99 mg/dL (60-115); Phosphorus 2.9 mg/dL (2.7-4.5); Potassium 3.5 mmol/L (3.3-5.1); Sodium 138 mmol/L (135-145)
[2023-05-31 12:43] LABS: Parathyroid Hormone Intact 73.3 pg/mL (8.7-77.1)
== END 2023-05-31 10:43 | disposition home or self-care (01) ==
LOC: HO.LAB 10:42
PROVIDERS: PCP Physician Assistant; Visit Provider Physician Assistant
DX: E21.3 Hyperparathyroidism, unspecified (principal); R30.0 Dysuria
CPT/HCPCS: 36415; 80048; 81003; 83735; 83970; 84100

== ENCOUNTER 2023-06-27 09:34 | Outpatient (AMB) | payer OTHER, SELFPAY ==
[2023-06-27 09:36] VITALS: BP 110/82; PULSE 88; O2SAT 99; BMI 23.0
--- NOTE | 2023-06-27 09:36 | HO.NEPHOV ---
HPI HPI Comments History of Present Illness Details I had the delight of seeing Basilia who is 53 years of age. She has E Danlos syndrome. She has had multiple complaints. She had already seen multiple specialty providers. She has seen waiter/waitress cocktail lounge for elevated TSH. She has been having generalized fatigue. She had been regularly followed up by Gastroenterology. One of her recent workup was significant for low phosphorus . She has had a long history of abdominal pain, diarrhea, greasy stools, occasional palpitations, abdominal bloating. She was also seen by Cardiology who had investigated her with echocardiogram which showed normal structure of the heart. Holter monitor shows rare PVCs. She describes very atypical symptoms including feeling like air bubbles popping or in her chest. She also complains of chest discomfort going down from lower retrosternal area although a around her left breast into her armpit and into her neck. Symptoms are not exertional in nature. She also feels like there is increased palpitations. She also continues to have dizziness and lightheadedness but has not had a tilt-table test. Lung CT scan was performed for cancer screening which shows coronary calcification. Patient stated she had a possible perineal abscess. Patient states that during the surgery no perianal abscess was found, but patient does have a large defect in the muscular layer of the rectovaginal septum with bogginess of mucosa without a fistula. Due to urinary retention, a Mccray catheter was inserted. Later patient went to the emergency room complaining of hematuria and dysuria.Initially she thought that this was secondary to irritation from the Mccray catheter since this the 1st time that she has a Mccray. At that time she was having hematuria and worsening abdominal pain radiating towards the left flank with a fever of 101.2. She also has history vitamin-D deficiency and had not been on any replacements because she could not tolerate high dose of ergocalciferol. Her renal functions are normal. She was also complaining of subjective fever with questionable dysuria but the culture did not yield anything. She had 2 ER visits with subjective urinary symptoms with culture negativity. Her catheter was D/[place]. [facility] Medical History Rectocele Perineal abscess Diarrhea Pelvic pain Elevated cholesterol Unintentional weight loss Fever of unknown origin History of cervical cancer Family history of colon cancer Nicotine dependence, cigarettes, uncomplicated HTN (hypertension) Near syncope Family history of pancreatic cancer COPD (chronic obstructive pulmonary disease) Dysphagia Vitamin D deficiency Hypothyroidism (~1999) Surgical History History of endometrial ablation History of tonsillectomy (~1976) History of History of throat surgery (~2011) Family History Mother Alzheimer's dementia CVD (cardiovascular disease) Maternal Grandfather Pancreatic cancer Social History Household Members: Children Household Members Other:: lives at home with 20-year-old daughter Housing: Apartment Do you presently have visiting nurse or other home services: No Alcohol intake: never Comment: vaginal area Patient Tobacco Use Status: Never used Tobacco Tobacco use type: Cigarette Cigarette Packs Per Day: 0.5 Cigarettes Per Day: 5 Years Smoked: (onset 11, 1ppd x 40yrs, now 1/4ppd, 40pyh) e-Cigarette/Vaping Use: Never Used Second Hand Smoke Exposure: Yes Substance Use Type: Marijuana Advance Directives Date on File: 09/11/22 service: No Current occupational status: disabled Cognitive needs: No Hearing needs: No Vision needs: No Female Reproductive History Menstrual Age of Menarche: 11 Vital Signs 06/27/23 09:36 Height 5 ft 5 in Weight 138 lb 4 oz BMI 23.0 BP 110/82 Blood Pressure Location Lt brachial Position Sitting Pulse 88 Pulse Source Pulse Oximeter Pulse Oximetry (%) 99 Oxygen Delivery Method Room Air Physical Exam Vital Signs: Last Vital Signs Pulse 88 06/27/23 09:36 BP 110/82 06/27/23 09:36 Pulse Ox 99 06/27/23 09:36 Oxygen Delivery Method Room Air 06/27/23 09:36 BMI result Body Mass Index 23.0 Const General: comfortable and no acute distress Orientation/consciousness: patient oriented x3 HEENT Head: Yes normocephalic Mouth: Normal oral and palatal mucosa present Eyes EOM: EOMs intact bilaterally Neck Neck: Yes supple Resp Auscultation: clear to auscultation bilaterally Cardio Jugular venous distension: no JVD Rate: regular rate GI Palpation (GI): Soft to palpation Auscultation: normal bowel sounds General: Yes no CVA tenderness Back/Spine/Pelvis Back: no CVA tenderness Skin General skin exam: no rashes or lesions noted Neuro General: patient oriented x3 and moves all extremities Extrem General: Yes no pedal edema Assessment & Plan Assessment & Plan (1) HTN (hypertension): Code(s): I10 - Essential (primary) hypertension Qualifiers: Hypertension type: primary hypertension Qualified Code(s): I10 - Essential (primary) hypertension Plan Workup for hypophosphatemia was unyielding. Her vitamin-D levels are OK. Serum biochemical parameters including bicarbonate, blood urea nitrogen, creatinine, glucose, calcium and magnesium levels were reviewed. If the calcium is high we will measure parathyroid hormone to assess hyperparathyroidism. Even in severe hyperparathyroidism serum phosphorous is never below 1.5-2. No reason to suggest renal phosphorus wasting. Her BP is at goal. I did not make any medication changes today. All questions answered Coding Level of Care Code Est Pt Level 3 (05489) Diagnoses Primary hypertension I10 Hypertension type: primary hypertension Results Reviewed Nephrology Results: Hgb 12.8 g/dl (12.0-16.0) 05/24/23 WBC 6.8 X10*3/uL (4.8-10.8) 05/24/23 Plt Count 315 X10*3/uL (160-400) 05/24/23 Sodium 138 mmol/L (135-145) 05/31/23 Potassium 3.5 mmol/L (3.3-5.1) 05/31/23 Chloride 103 mmol/L (96-108) 05/31/23 Carbon Dioxide 28 mmol/L (22-29) 05/31/23 BUN 11 mg/dL (9-16) 05/31/23 Creatinine 0.74 mg/dL (0.5-1.4) 05/31/23 Calcium 9.5 mg/dL (8.4-10.2) 05/31/23 Phosphorus 2.9 mg/dL (2.7-4.5) 05/31/23 PTH Intact 73.3 pg/mL (8.7-77.1) 05/31/23 Urine Protein Negative mg/dL (Neg-Trace) 05/31/23 Urine Creatinine 71.58 mg/dL 05/23/23
== END 2023-06-27 10:11 | disposition home or self-care (01) ==
PROVIDERS: PCP Physician Assistant; Visit Provider Internal Medicine Nephrology
DX: I10 Essential (primary) hypertension (principal)
CPT/HCPCS: 99213

== ENCOUNTER → 2023-06-27 09:34 | Outpatient (BNVA) | payer OTHER, SELFPAY | PROVIDERS: PCP Physician Assistant; Visit Provider Internal Medicine Nephrology | DX: I10 Essential (primary) hypertension (principal) | CPT/HCPCS: 99212 ==

== ENCOUNTER 2023-07-02 07:55 | Outpatient (REF) | payer OTHER, SELFPAY ==
--- NOTE | ~2023-07-02 | US_ITS ---
EXAMINATION: US ABDOMEN LIMITED CLINICAL INFORMATION: Right upper quadrant pain. Evaluate for gallbladder stones. COMPARISON: CT abdomen and pelvis 05/18/2023. X-ray abdomen 09/07/2022. TECHNIQUE: Real-time imaging of the right upper quadrant abdominal viscera. Limited visualization due to bowel gas. FINDINGS: PANCREAS: Limited visualization of pancreatic tail and head. Imaged portion of pancreatic body is unremarkable. Portion of duct visualized in the pancreas measures 0.35 cm. LIVER: Borderline mildly increased hepatic parenchymal heterogeneity and echogenicity could be associated with hepatocellular disease/hepatic steatosis and substantially limits visualization. Correlation with liver function tests and clinical exam recommended to determine further management. GALLBLADDER: No gallstones. No gallbladder wall thickening. COMMON BILE DUCT: Normal in caliber measuring 0.4 cm in diameter. RIGHT KIDNEY: No hydronephrosis. No renal calculi. Limited visualization. Midpole medial 1.5 cm cyst and midpole lateral 1.6 cm cyst. Mild diffuse renal cortical thinning. There is no indication for follow-up imaging. The kidney measures 11.4 cm in maximum dimension. FREE FLUID: None. US/US abdomen limited IMPRESSION: 1. Borderline mildly increased hepatic parenchymal heterogeneity and echogenicity could be associated with hepatocellular disease/hepatic steatosis and substantially limits visualization. Correlation with liver function tests and clinical exam recommended to determine further management. 2. Portion of duct visualized in the pancreas measures 0.35 cm. 3. Mild diffuse right renal cortical thinning. There is no indication for follow-up imaging.
== END 2023-07-02 07:56 | disposition home or self-care (01) ==
LOC: HO.US 07:55
PROVIDERS: PCP Physician Assistant; Visit Provider Physician Assistant
DX: R10.11 Right upper quadrant pain (principal)
CPT/HCPCS: 76705

== ENCOUNTER 2023-07-18 11:11 | Outpatient (REF) | payer OTHER, SELFPAY ==
[2023-07-23 10:48] LABS: Fecal Fat Qualitative Normal (Normal)
== END 2023-07-18 11:12 | disposition home or self-care (01) ==
LOC: HO.LNP 11:11
PROVIDERS: Visit Provider Physician Assistant
DX: K63.8219 Small intestinal bacterial overgrowth, unspecified (principal)
CPT/HCPCS: 82705

== ENCOUNTER 2023-07-25 09:14 | Outpatient (AMB) | payer OTHER, SELFPAY ==
--- NOTE | 2023-07-25 09:14 | MHC.OFFVIS ---
Intake Intake Visit Reasons: Chronic Abd Pain - Per Isidra Jose Roberto Intake Note: CC: states that she ended up in the ED after seeing Isidra Cid last. CT and testing were done. She is having issues that have been going on for a while now. Pain has always been in the one spot. Under diaphragm wrapped around to left side that goes to the middle of her back. Allergies amoxicillin [From AUGMENTIN] Allergy (Severe, Verified 07/25/23 09:15) Anaphylaxis clavulanic acid [From AUGMENTIN] Allergy (Severe, Verified 07/25/23 09:15) Anaphylaxis banana Allergy (Unknown, Verified 07/25/23 09:15) Unknown ketorolac [From Toradol] Allergy (Unknown, Verified 07/25/23 09:15) Anaphylaxis kiwi Allergy (Unknown, Verified 07/25/23 09:15) Unknown prochlorperazine [From COMPAZINE] Allergy (Unknown, Verified 07/25/23 09:15) INVOLUNTARY SPASMS HPI HPI Comments History of Present Illness Details This is a 53 y.o with PMH of Billy's, VERONIKA 3 s/p LEEP 2022, peripheral neuropathy, chronic intermittent electrolyte abnl who is here for second opinion for GI issues as below. Previously Isidra Guardado's pt. Pt reports x2 years hx of constant abd pain that radiates to her left upper quadrant and then wraps around to her spine. Pain gets worse with eating sometimes goes up to her L shoulder as well. Assoc with bloating. Manages with sticking to meal replacement shakes. Bowel movements are now harder to pass and have become pencil thin. BMs without blood but can look dark . Also having night sweats and fevers with TMax 103 that tend to have a cyclical pattern over the last 6 months. Has noticed a red macular rash on her palms with this which is nonpruritic and nontender. In the last 6 months symptoms have worsened. Pt also reports fluctuating weight loss. Has been to the ER x2 in Apr - CT Abd/pel on 05/18 was suggestive of perineal abscess however on EUA there as no abscess aspirated and instead pt was noted to have a possible defect in muscular layer of the rectovaginal septum measuring about 2.[address] also showed small bowel wall thickening which is of unclear significance. Last colo > 5years ago. 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 Notes N/A at this time. Fam hx: Father: panc ca - however pt unsure of age of dx COUNT INCLUDES THE [facility] Medical History (Updated 07/25/23 @ 09:39 by Angelica Garg MD) Family history of pancreatic cancer Rectocele Perineal abscess Diarrhea Pelvic pain Elevated cholesterol Unintentional weight loss Fever of unknown origin History of cervical cancer Family history of colon cancer Nicotine dependence, cigarettes, uncomplicated HTN (hypertension) Near syncope COPD (chronic obstructive pulmonary disease) Dysphagia Vitamin D deficiency Hypothyroidism (~1999) Surgical History History of endometrial ablation History of tonsillectomy (~1976) History of History of throat surgery (~2011) Family History Mother Alzheimer's dementia CVD (cardiovascular disease) Maternal Grandfather Pancreatic cancer Social History Household Members: Children Household Members Other:: lives at home with 20-year-old daughter Housing: Apartment Do you presently have visiting nurse or other home services: No Alcohol intake: never Comment: vaginal area Patient Tobacco Use Status: Never used Tobacco Tobacco use type: Cigarette Cigarette Packs Per Day: 0.5 Cigarettes Per Day: 5 Years Smoked: (onset 11, 1ppd x 40yrs, now 1/4ppd, 40pyh) e-Cigarette/Vaping Use: Never Used Second Hand Smoke Exposure: Yes Substance Use Type: Marijuana Advance Directives Date on File: 09/11/22 service: No Current occupational status: disabled Cognitive needs: No Hearing needs: No Vision needs: No Female Reproductive History Menstrual Age of Menarche: 11 Review of Systems Const All systems reviewed & are unremarkable except as noted in HPI and below Physical Exam vide visit NAD SPeaking in full sentences No overt resp distress No facial asymmetry Assessment & Plan Assessment & Plan (1) Thickened small bowel: Code(s): K63.9 - Disease of intestine, unspecified (2) Family history of pancreatic cancer: Comment: Father Code(s): Z80.0 - Family history of malignant neoplasm of digestive organs (3) Unintentional weight change: Code(s): R68.89 - Other general symptoms and signs (4) Change in bowel habit: Code(s): R19.4 - Change in bowel habit (5) Chronic abdominal pain: Code(s): R10.9 - Unspecified abdominal pain; G89.29 - Other chronic pain (6) Constipation: Code(s): K59.00 - Constipation, unspecified (7) Night sweats: Code(s): R61 - Generalized hyperhidrosis (8) Fever: Code(s): R50.9 - Fever, unspecified Qualifiers: Fever type: unspecified Qualified Code(s): R50.9 - Fever, unspecified Plan In summary pt reports x2 years of abd pain primarily L sided assoc with loss of appetite, weight change and constipation with change in stool caliber. She has also been having cyclical fevers, night sweats and palmar rash which is of unclear etiology. Pertinent imaging findings of thickened small bowel loops and concern for perineal abscess - however pt determined to not have any perianal disease or abscess on EUA in Apr 2023. Pt also with personal hx of recurrent panc (due to high TG per her report) and fam hx of panc ca in father. Prelim w/up such as TSPOT (grandfather with TB hx), tick panel, immunoglobulins, HIV also ordered for w/up of recurrent fevers with night sweats - pt already has a referral for rheum. Plan: - Check labs including stool studies for IBD, malabsorption - CT enterography for ?thickened small bowel capps - MRI panc protocol to r/o panc mass/cyst - although CT in Apr 2023 reassuring - Pt should also undergo EGD/colo for eval of L sided abd pain with change in bowel habits however will await results of CTE as well as cardiology assessment before booking this - Prelim testing such as TSPOT (grandfather with TB hx), tick panel, immunoglobulins, HIV also ordered for w/up of recurrent fevers with night sweats - pt already has a referral for rheum. Follow up 8 weeks Orders: Orders MR abdomen wo/w con Today R19.4 - Change in bowel habit, R68.89 - Other general symptoms and signs, Z80.0 - Family history of malignant neoplasm of digestive organs CT enterography Today K63.9 - Disease of intestine, unspecified Comprehensive Met. Panel Today K63.9 - Disease of intestine, unspecified Calprotectin, Fecal Today K63.9 - Disease of intestine, unspecified C Reactive Protein Today K63.9 - Disease of intestine, unspecified IRON PROFILE Today K63.9 - Disease of intestine, unspecified Ferritin Today K63.9 - Disease of intestine, unspecified Vitamin B12 and Folate Today K63.9 - Disease of intestine, unspecified T Spot TB Today R50.9 - Fever, unspecified, R61 - Generalized hyperhidrosis Immunoglobulins,IgG IgA IgM Today R50.9 - Fever, unspecified, R61 - Generalized hyperhidrosis Immunoglobulin D Today R50.9 - Fever, unspecified, R61 - Generalized hyperhidrosis Vitamin D 25-OH Total Today K63.9 - Disease of intestine, unspecified YOUNG Reflex Titer and Pattern Today R50.9 - Fever, unspecified, R61 - Generalized hyperhidrosis Tick-borne Disease Molecular Today R50.9 - Fever, unspecified, R61 - Generalized hyperhidrosis HIV Ab/Ag Today R50.9 - Fever, unspecified, R61 - Generalized hyperhidrosis Medications: New polyethylene glycol 3350 (Miralax) 17 grams PO BID 238 grams 0RF Coding Level of Care Code Est Pt Level 5 (59079) Diagnoses Thickened small bowel K63.9 Family history of pancreatic cancer Z80.0 Unintentional weight change R68.89 Change in bowel habit R19.4 Chronic abdominal pain R10.9; G89.29 Constipation K59.00 Night sweats R61 Fever, unspecified fever cause R50.9 Fever type: unspecified
== END 2023-07-25 10:29 | disposition home or self-care (01) ==
LOC: HO.HGI 09:14
PROVIDERS: PCP Physician Assistant; Visit Provider Internal Medicine
DX: K63.9 Disease of intestine, unspecified (principal); Z80.0 Family history of malignant neoplasm of digestive organs; R68.89 Other general symptoms and signs; R19.4 Change in bowel habit; R10.9 Unspecified abdominal pain; G89.29 Other chronic pain; K59.00 Constipation, unspecified; R61 Generalized hyperhidrosis; R50.9 Fever, unspecified
CPT/HCPCS: 99215

== ENCOUNTER → 2023-07-25 09:14 | Outpatient (BNVA) | payer OTHER, SELFPAY | PROVIDERS: PCP Physician Assistant; Visit Provider Internal Medicine ==

== ENCOUNTER 2023-08-07 08:26 | Outpatient (REF) | payer OTHER, SELFPAY ==
[2023-08-07 10:44] LABS: HIV AB/AG Nonreactive (Nonreactive); HIV Num 1 0.04 S/CO (0.00-0.99)
[2023-08-07 12:05] LABS: Folate 11.1 ng/mL (> or = 4.0); Vitamin B12 454 pg/mL (200-900)
[2023-08-07 12:41] LABS: Alanine Aminotransferase 25 U/L (0-31); Albumin Level 4.4 g/dL (3.5-5.0); Alkaline Phosphatase 55 U/L (39-117); Anion Gap 17 (12-20); Aspartate Amino Transferase 20 U/L (5-31); Bilirubin Total 0.5 mg/dL (0.0-1.0); Blood Urea Nitrogen 11 mg/dL (9-16); Calcium 9.3 mg/dL (8.4-10.2); Carbon Dioxide 22 mmol/L (22-29); Chloride 102 mmol/L (96-108); Estimated Glomerular Filt Rate > 60; Glucose Random 88 mg/dL (60-115); Iron 95 mcg/dL (30-160); Percent Iron Saturation 33 % (15-50); Potassium 4.5 mmol/L (3.3-5.1); Sodium 136 mmol/L (135-145); Total Iron Binding Capacity 285 mcg/dL (228-428); Total Protein 7.5 g/dL (6.5-8.0); Unsaturated Iron Binding 190 ug/dL
[2023-08-07 12:48] LABS: Ferritin 119 ng/mL (10-250); Vitamin D 25-OH Total 35.7 ng/mL (>30)
[2023-08-08 17:49] LABS: IgA 285 mg/dL (47-310); IgG 975 mg/dL (600-1640); IgM 190 mg/dL (50-300)
[2023-08-09 07:38] LABS: A. Phagocytphilium DNA,RT-PCR NOT DETECTED (NOT DETECTED); Babesia Microti DNA, RT-PCR NOT DETECTED (NOT DETECTED); Borrelia Miyamotoi,DNA RT-PCR NOT DETECTED (NOT DETECTED); E.Chaffeensis DNA RT-PCR NOT DETECTED (NOT DETECTED); Lyme(Borrelia ssp)DNA RT-PCR NOT DETECTED (NOT DETECTED)
[2023-08-09 21:59] LABS: TS Negative Control Passed; TS Panel A 1; TS Panel B 1; TS Positive Control Passed; TSpotTB Negative (Negative)
[2023-08-09 22:48] LABS: Immunoglobulin D 14 mg/L (<179)
[2023-08-10 14:49] LABS: Anti Nuclear Antibody Screen NEGATIVE (NEGATIVE)
[2023-08-12 23:58] LABS: Calprotectin, Fecal 7 mcg/g
== END 2023-08-07 08:27 | disposition home or self-care (01) ==
LOC: HO.LAB 08:26
PROVIDERS: PCP Physician Assistant; Visit Provider Internal Medicine
DX: K63.9 Disease of intestine, unspecified (principal); R61 Generalized hyperhidrosis; R50.9 Fever, unspecified; R10.9 Unspecified abdominal pain; G89.29 Other chronic pain
CPT/HCPCS: 36415; 80053; 82306; 82607; 82728; 82746; 82784; 83540; 83993; 86038; 86140; 86481; 87389; 87468; 87469; 87478; 87484; 87798

== ENCOUNTER 2023-08-16 07:58 | Outpatient (REF) | payer OTHER, SELFPAY ==
--- NOTE | ~2023-08-16 | FL_ITS ---
EXAMINATION: XR FLUOROSCOPY UPPER GI WITH SMALL BOWEL SERIES CLINICAL INFORMATION: Abdominal pain COMPARISON: None TECHNIQUE: Fluoroscopic air contrast upper GI examination was performed utilizing standard techniques with thin and thick barium and effervescent granules. Numerous spot images were obtained. This was followed by small bowel series with serial overhead images taken at 0 and 30 minutes. Multiple fluoroscopic spot images taken after 30 minutes. FINDINGS: Images of the oropharynx and hypopharynx demonstrate normal swallow mechanism with normal epiglottic inversion and soft palate elevation. No tracheal penetration, glottic or subglottic aspiration identified. No nasopharyngeal reflux present. Hypopharyngeal structures appear normal without evidence of mass or diverticulum. There is mild cricopharyngeal achalasia present. Dual and single contrast images of the esophagus demonstrate normal caliber and contour. Mild granular mucosal pattern noted suspicious for mild erosive gastritis. No evidence of stricture, mass, or large ulcerations identified. Esophageal peristalsis was minimally disorganized. A small type I hiatal hernia is present. Gastroesophageal reflux is seen up to the aortic arch. Dual contrast and single contrast images of the stomach demonstrated a normal contour. The gastric rugal folds appear thickened. There are multiple tiny areas of contrast pooling in the fundus and body the stomach that may represent small superficial aphthous ulcers. There are thickened areae gastricae in the body and antrum of the stomach. No masses are present. Contrast freely passed into the gastric antrum and duodenal bulb without delay. Single and air-contrast images of the duodenal bulb demonstrate no abnormality. Apparent filling defect in the duodenal bulb is present (RF 1-6, RF 1-7), however may be on the basis of transient peristalsis and incomplete filling. The duodenal sweep has a normal appearance, course, and mucosal fold appearance. The imaged small bowel has a mildly thickened jejunal pattern however normal caliber. There are no dilated loops, masses, or strictures present. Contrast reached the right colon at 30 minutes. There appears to be dilution of contrast into the terminal ileum. No abnormal ileal mucosal pattern. There are a few scattered bilateral rare diverticula of the colon. The cecum lies deep within the pelvis. FLUOROSCOPY TIME: 3 minutes 19 seconds Number of Spot Images: 12 Number of Cine: 8 DOSE AREA PRODUCT: 2114 uGy-m2 (microgray-meter squared) FL/FL upper GI small bowel IMPRESSION: 1. Mild cricopharyngeal achalasia. 2. Small type I hiatal hernia. 3. Moderate gastroesophageal reflux. Findings suspect for mild erosive esophagitis. 4. Thickened appearance of the gastric rugal folds. In addition there are multiple tiny areas of contrast pooling in the fundus and body the stomach. These findings are suggestive of erosive gastritis. 5. Possible filling defect in the duodenal bulb, although could be artifactual due to transient peristalsis. 6. Small bowel series demonstrating no dilated loops. Suggestion of mild thickening of the jejunal folds, with mild dilution of contrast as it progresses into the ileum. This could suggest a malabsorption syndrome. Contrast reaches the right colon at a somewhat brief 30 minutes. Given the above findings, EGD is recommended. This procedure was performed by Yordy Martínez PA-C, and supervised by Dr. Cortez
--- NOTE | ~2023-08-16 | XR_ITS ---
EXAMINATION: XR CERVICAL SPINE CLINICAL INFORMATION: Cervical radiculopathy. COMPARISON: Radiographs dated 11/26/2019. TECHNIQUE: Frontal, lateral and odontoid views are obtained. FINDINGS: Vertebral body heights and alignment are normal. The cervical disc spaces are well-maintained. No acute fracture or spondylolisthesis is seen. There is multi-level endplate arthropathy, extending from C3-C4 through C5-C6. The dens and C7-T1 interface are normal. The posterior elements are intact. There is no prevertebral soft tissue swelling. A small amount of retained oral contrast is seen within the pharynx and upper esophagus. XR/XR cervical spine 3V IMPRESSION: 1. No acute fracture or spondylolisthesis is seen. 2. The cervical disc spaces are well-maintained. 3. There is multi-level cervical spondylosis.
== END 2023-08-16 07:59 | disposition home or self-care (01) ==
LOC: HO.XRAY 07:58
PROVIDERS: PCP Physician Assistant; Visit Provider Nurse Practitioner
DX: R10.9 Unspecified abdominal pain (principal); G89.29 Other chronic pain; Q79.60 Ehlers-Danlos syndrome, unspecified; M54.12 Radiculopathy, cervical region
CPT/HCPCS: 72040; 74240; 74248

== ENCOUNTER → 2023-08-16 08:00 | Outpatient (BNV) | payer OTHER, SELFPAY | PROVIDERS: PCP Physician Assistant; Visit Provider Physician Assistant Surgical | DX: R10.9 Unspecified abdominal pain (principal) | CPT/HCPCS: 74246; 74248 ==

== ENCOUNTER 2023-09-03 16:16 | Outpatient (REF) | payer OTHER, SELFPAY ==
--- NOTE | ~2023-09-03 | MR_ITS ---
EXAMINATION: MR ABDOMEN WITHOUT AND WITH CONTRAST CLINICAL INFORMATION: Change in bowel habits COMPARISON: Abdominal ultrasound 07/02/2023, CT abdomen and pelvis 05/18/2023 TECHNIQUE: MRI of the abdomen before and after the IV administration of 6.5 mL of Gadavist was obtained using routine sequences. FINDINGS: LUNG BASES: The visualized lung bases are unremarkable. KIDNEYS AND URETERS: Bosniak 1 renal cysts, no imaging follow-up recommended. GALLBLADDER: Unremarkable. LIVER AND BILIARY TREE: Liver is enlarged measuring 19 cm in span. Geographic wedge-shaped region of arterial phase hyperenhancement in the right hepatic lobe of liver which appears isointense on the remainder of bases, favored to reflect a transient hepatic intensity difference/perfusional anomaly. No intra or extrahepatic biliary duct dilatation. PANCREAS: Unremarkable SPLEEN: Unremarkable ADRENAL GLANDS: Unremarkable GASTROINTESTINAL TRACT: Unremarkable. LYMPH NODES: No lymphadenopathy. VASCULAR: Unremarkable ABDOMINAL WALL: Unremarkable. OSSEOUS STRUCTURES: Multilevel degenerative disc disease. Incidentally noted sacral Tarlov cyst. MR/MR abdomen wo/w con IMPRESSION: 1. Visualized bowel in the abdomen is unremarkable however given the described findings in the anus/rectum in pelvis on prior CT abdomen and pelvis, MR pelvis may be more useful for further delineation of the etiology of the patient's bowel symptoms. 2. Geographic wedge-shaped region of arterial phase hyperenhancement in the right hepatic lobe of liver which appears isointense on the remainder of bases, favored to reflect a transient hepatic intensity difference/perfusional anomaly. 3. Liver is mildly enlarged measuring 19 cm in span.
[2023-09-03] MEDS: gadobutroL 7.5 ML VIAL IVPUSH (17:12)
== END 2023-09-03 16:17 | disposition home or self-care (01) ==
LOC: HO.MRI 16:16
PROVIDERS: PCP Physician Assistant; Visit Provider Internal Medicine
DX: R19.4 Change in bowel habit (principal); R68.89 Other general symptoms and signs; Z80.0 Family history of malignant neoplasm of digestive organs
CPT/HCPCS: 74183; A9585

== ENCOUNTER 2023-09-18 08:01 | Outpatient (REF) | payer OTHER, SELFPAY ==
--- NOTE | ~2023-09-18 | MM_ITS ---
EXAMINATION: MM SCREENING DIGITAL BREAST TOMOSYNTHESIS, BILATERAL CLINICAL INFORMATION: Screening. Asymptomatic. COMPARISON: Mammography: There are no prior mammograms available for comparison. TECHNIQUE: Digital breast tomosynthesis is performed in both the craniocaudal and mediolateral oblique views along with computer-aided detection (CAD). Synthesized 2D images are generated from the tomosynthesis. FINDINGS: There are scattered areas of fibroglandular density (ACR BI-RADS breast composition Category b). There are no significant masses, abnormal calcifications, or other abnormalities. MM/MM tomosynthesis screening BI IMPRESSION: No mammographic evidence of malignancy. ASSESSMENT: BI-RADS BI-RADS 1 - Negative RECOMMENDATION: Routine annual mammography screening. 1 year F/U This examination should not preclude the clinical evaluation of a suspicious palpable abnormality. This patient's information was entered into a reminder system with a target due date for their next mammogram.
== END 2023-09-18 08:02 | disposition home or self-care (01) ==
LOC: HO.MAMMO 08:01
PROVIDERS: PCP Physician Assistant; Visit Provider Physician Assistant
DX: Z12.31 Encounter for screening mammogram for malignant neoplasm of breast (principal)
CPT/HCPCS: 77063; 77067

== ENCOUNTER → 2023-09-18 08:15 | Outpatient (BNV) | payer OTHER, SELFPAY | PROVIDERS: PCP Physician Assistant; Visit Provider Radiology Diagnostic Radiology | DX: Z12.31 Encounter for screening mammogram for malignant neoplasm of breast (principal) | CPT/HCPCS: 77063; 77067 ==

== ENCOUNTER 2023-09-19 08:42 | Outpatient (REF) | payer OTHER, SELFPAY ==
--- NOTE | ~2023-09-19 | CT_ITS ---
EXAMINATION: CT ENTEROGRAPHY ABDOMEN AND PELVIS WITH CONTRAST CLINICAL INFORMATION: Disease of intestine. COMPARISON: MRI abdomen 09/03/2023 Upper GI series/small bowel follow-through 08/16/2023 TECHNIQUE: Study performed with oral VoLumen (1500 mL) and 500 mL of water to distend the abdomen. The patient was injected with 85 mL Omnipaque 350 intravenous contrast which was administered without adverse effect. Coronal and sagittal reformatted images were obtained at the technologist's workstation. This CT examination was performed using dose optimization techniques as appropriate, variously including the following: *Automated exposure control *Adjustment of mA and/or kV according to patient size (this includes techniques or standardized protocols for targeted exams where dose is matched to indication/reason for exam; i.e. extremities or head) *Use of iterative reconstruction technique DLP: 350 mGy-cm FINDINGS: GASTROINTESTINAL FINDINGS: Stomach: Satisfactory distended. Antral wall thickening. Small intestine: Wall thickening of the proximal to mid small bowel. No small bowel obstruction. Abnormal enhancement of the distal ileum. Large intestine: Moderate fecal retention in the colon. Diverticular disease of the sigmoid colon. No wall thickening. Appendix is within normal limits. No perirectal changes. Additional findings: No abnormal enhancement of the vasa recta or significant mesenteric or retroperitoneal lymphadenopathy is seen. No abdominal abscess or fistulous tract demonstrated. ABDOMINAL AND PELVIC CT FINDINGS: Liver, gallbladder, biliary tract: The liver is normal in contour. No focal hepatic lesion. No biliary ductal dilatation. The gallbladder is unremarkable. Pancreas: Normal contour. No ductal dilatation. Spleen: Not enlarged. Adrenal glands and kidneys: No adrenal mass. Kidneys are symmetric in size and enhancement. Right renal cysts appear simple. No further imaging follow-up is needed. No hydronephrosis or perinephric fluid collection. Ureters and bladder: Unremarkable. Lymphovascular structures: Scattered subcentimeter mesenteric lymph nodes. Normal caliber abdominal aorta. Bones: No destructive bone lesions. Lung bases: Dependent changes. CT/CT enterography IMPRESSION: Antral wall thickening. Wall thickening of proximal to mid small bowel. Abnormal enhancement of the distal ileum. These findings may be seen in the setting of inflammatory bowel disease given the discontinuity of involvement. Advise clinical correlation.
[2023-09-19] MEDS: Sorbitol/Mannit/Xanth Imaging 500 ML LIQUID 1500 ML PO (10:24)
[2023-09-19] MEDS: iohexoL 350 MG/ML 100 ML INFUS..BTL 85 ML IV (10:24)
[2023-09-21 14:22] LABS: Creatinine POC 0.6 mg/dL (0.5-1.4); GFR POC > 60
== END 2023-09-19 08:43 | disposition home or self-care (01) ==
LOC: HO.CT 08:42
PROVIDERS: PCP Physician Assistant; Visit Provider Internal Medicine
DX: K63.9 Disease of intestine, unspecified (principal)
CPT/HCPCS: 74177; 82565; Q9967

== ENCOUNTER 2023-09-26 07:03 | Outpatient (REF) | payer OTHER, SELFPAY ==
[2023-09-26 08:53] LABS: Alanine Aminotransferase 19 U/L (0-31); Albumin Level 4.4 g/dL (3.5-5.0); Alkaline Phosphatase 54 U/L (39-117); Anion Gap 11 (12-20); Aspartate Amino Transferase 17 U/L (5-31); Bilirubin Total 0.5 mg/dL (0.0-1.0); Blood Urea Nitrogen 5 mg/dL (9-16); Calcium 9.6 mg/dL (8.4-10.2); Carbon Dioxide 26 mmol/L (22-29); Chloride 102 mmol/L (96-108); Estimated Glomerular Filt Rate > 60; Glucose Random 112 mg/dL (60-115); Phosphorus 2.8 mg/dL (2.7-4.5); Potassium 4.3 mmol/L (3.3-5.1); Sodium 135 mmol/L (135-145); Total Protein 7.5 g/dL (6.5-8.0)
[2023-09-26 09:11] LABS: Parathyroid Hormone Intact 89.9 pg/mL (8.7-77.1)
[2023-09-26 09:21] LABS: TSH reflex Free T4 0.15 uIU/mL (0.32-4.0); Vitamin D 25-OH Total 68.7 ng/mL (>30)
[2023-09-26 09:56] LABS: Free T4 (Free Thyroxine) 1.42 ng/dL (0.71-1.85)
== END 2023-09-26 07:04 | disposition home or self-care (01) ==
LOC: HO.LAB 07:03
PROVIDERS: PCP Physician Assistant; Visit Provider Internal Medicine
DX: E03.8 Other specified hypothyroidism (principal); E06.3 Autoimmune thyroiditis; E21.3 Hyperparathyroidism, unspecified
CPT/HCPCS: 36415; 80053; 82306; 83735; 83970; 84100; 84439; 84443

== ENCOUNTER 2023-10-09 10:27 | Outpatient (AMB) | payer OTHER, SELFPAY ==
[2023-10-09 10:32] VITALS: BP 110/82; PULSE 68; O2SAT 98; BMI 23.5
--- NOTE | 2023-10-09 10:32 | MHC.PC.OV ---
Vital Signs 10/09/23 10:32 Height 5 ft 5 in Weight 141 lb 6 oz BMI 23.5 BP 110/82 Blood Pressure Location Lt brachial Position Sitting Pulse 68 Pulse Source Pulse Oximeter Pulse Oximetry (%) 98 Oxygen Delivery Method Room Air Intake Visit Reasons: [facility] Dental tooth removal 10/22/23 Intake Note: Pt is here for Dental Pre-Op for tooth extraction on 10/22/23. Notes to be fax to [phone]. Email Administrator Required: No Accompanied by: Self / Same As Patient Allergies amoxicillin [From AUGMENTIN] Allergy (Severe, Verified 10/09/23 10:34) Anaphylaxis clavulanic acid [From AUGMENTIN] Allergy (Severe, Verified 10/09/23 10:34) Anaphylaxis banana Allergy (Unknown, Verified 10/09/23 10:34) Unknown ketorolac [From Toradol] Allergy (Unknown, Verified 10/09/23 10:34) Anaphylaxis kiwi Allergy (Unknown, Verified 10/09/23 10:34) Unknown prochlorperazine [From COMPAZINE] Allergy (Unknown, Verified 10/09/23 10:34) INVOLUNTARY SPASMS Tobacco use date assessed: 05/01/23 Dental Screening Dental Screen Date: 05/01/23 HPI [facility] Dental tooth removal 10/22/23 HPI Details Patient is a 53-year-old female here today for a preop visit. Patient is due for dental extractions 10/22/2023 at [facility].. Patient's past medical history significant for hypertension, hyperlipidemia, hypothyroidism generalized anxiety disorder. Patient was RECENTLY ADMITTED TO [facility] FOR ACUTE LOWER ABDOMINAL PAIN, WAS FOUND TO HAVE A PERIRECTAL ABSCESS AND MULTIPLE PELVIC FLOOR CONDITIONS INCLUDING RECTOCELE AND A CYSTOCELE. SHE WAS ALSO FOUND TO HAVE SOME URINARY RETENTION AND UROLOGY CONSULTED WHO RECOMMENDED A PESSARY and urogyn refferal . She has also been found to have some kind malabsorption issue and she is followed by gastroenterology. She is due for endoscopy colonoscopy this year. .. CHRONIC MEDICAL CONDITIONS---> Hyperlipidemia: Most recent labs showing very elevated total cholesterol and LDL. She has been tried on statin therapy though had side effects that were intolerable. She reports she feels much better now being off of statin therapy. She reports she has stopped using decaf coffee and feels that this may be contributing to her elevations in her cholesterol. .. Hypothyroidism: Most recent TSH stable recently. She continues on levothyroxine 88 mcg. She is concerned she continues to have a thyroid issue. She does report having some lower neck swelling from time to time which she attributes to a thyroid condition. .. Hypertension: Patient's blood pressure acceptable today in office. [facility] Medical History Family history of pancreatic cancer Rectocele Perineal abscess Diarrhea Pelvic pain Elevated cholesterol Unintentional weight loss Fever of unknown origin History of cervical cancer Family history of colon cancer Nicotine dependence, cigarettes, uncomplicated HTN (hypertension) Near syncope COPD (chronic obstructive pulmonary disease) Dysphagia Vitamin D deficiency Hypothyroidism (~1999) Surgical History History of endometrial ablation History of tonsillectomy (~1976) History of History of throat surgery (~2011) Family History Mother Alzheimer's dementia CVD (cardiovascular disease) Maternal Grandfather Pancreatic cancer Social History Household Members: Children Household Members Other:: lives at home with 20-year-old daughter Housing: Apartment Do you presently have visiting nurse or other home services: No Alcohol intake: never Comment: vaginal area Patient Tobacco Use Status: Never used Tobacco Tobacco use type: Cigarette Cigarette Packs Per Day: 0.5 Cigarettes Per Day: 5 Years Smoked: (onset 11, 1ppd x 40yrs, now 1/4ppd, 40pyh) e-Cigarette/Vaping Use: Never Used Second Hand Smoke Exposure: Yes Substance Use Type: Marijuana Advance Directives Date on File: 09/11/22 service: No Current occupational status: disabled Cognitive needs: No Hearing needs: No Vision needs: No Female Reproductive History Menstrual Age of Menarche: 11 Questionnaire Thrive Questionnaire Date Thrive assessed: 05/19/23 STONE-7 AMB Questionnaire STONE-7 Date STONE - 7 assessed: 05/01/23 Source: Developed by Drs. 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 Review of Systems Const Denies headache(s) Eyes Denies loss of vision ENT Denies vertigo, Denies dizziness, Denies headache(s) and Denies sore throat Card Denies chest pain, Denies leg edema and Denies lightheadedness Resp Denies cough, Denies hemoptysis and Denies wheezing GI Denies abdominal pain, Denies melena, Denies constipation, Denies diarrhea and Denies vomiting Denies urinary frequency, Denies dysuria and Denies urinary urgency Musc Denies arthralgias, Denies joint swelling, Denies numbness and Denies tingling Neuro Denies Abnormal speech present, Denies behavioral changes, Denies vertigo, Denies dizziness, Denies headache(s), Denies loss of vision, Denies memory loss, Denies numbness and Denies tingling Psych Denies anxiety, Denies behavioral changes, Denies depression, Denies memory loss and Denies panic attacks Lawrence/Lymph Denies easy bleeding and Denies easy bruising Aller/Immun Denies wheezing Physical exam (Primary Care) Vital Signs: Last Vital Signs Pulse 68 10/09/23 10:32 BP 110/82 10/09/23 10:32 Pulse Ox 98 10/09/23 10:32 Oxygen Delivery Method Room Air 10/09/23 10:32 BMI result Body Mass Index 23.5 Tobacco/Smoking Status: Tobacco use Status Tobacco use date assessed 05/01/23 10/09/23 10:36 Patient Tobacco Use Status Never used Tobacco 10/09/23 10:36 Tobacco use type Cigarette 10/09/23 10:36 e-Cigarette/Vaping Use Never Used 10/09/23 10:36 Thrive Assessment: Date of Thrive Assessment Date Thrive assessed 05/19/23 10/09/23 10:36 Const General: healthy appearing, no acute distress, alert and awake Nutritional Appearance: well nourished Orientation/consciousness: oriented to person, oriented to place and oriented to time HENMT Ears: TM's normal bilaterally General nose exam: Normal nasal mucous membranes and turbinates present Eyes Conjunctivae: conjunctivae normal Sclerae: sclerae normal Pupils: Equal, round and reactive pupils present Neck Neck: Yes no lymphadenopathy and Yes no JVD Thyroid: Thyroid normal Carotids: no bruits Resp Effort & Inspection: normal respiratory effort and not tachypneic Auscultation: no crackles, no rales, no rhonchi and no wheezes Cardio Rate: regular rate Rhythm: regular rhythm Heart sounds: no murmurs and normal S1 and S2 GI Palpation (GI): Soft to palpation, nontender, no hepatomegaly and no splenomegaly Auscultation: normal bowel sounds Skin General skin exam: no rashes or lesions noted and dry skin Neuro General: oriented to person, oriented to place and oriented to time Cranial nerves: Yes Equal, round and reactive pupils present Speech: No Abnormal speech present Gait exam (Neuro): Normal gait present Motor exam (neuro): no tremor noted Extrem Right upper extremity: full ROM Left upper extremity: full ROM Right lower extremity: full ROM; no edema Left lower extremity: full ROM; no edema Psych Mental Status: mental status grossly normal Speech and movement: Normal speech and movement present Affect: normal affect Attitude: cooperative Thought process: Normal thought process present Assessment and Plan Assessment & Plan (1) Pre-op evaluation: Code(s): Z01.818 - Encounter for other preprocedural examination Plan: Patient is due for total teeth dental extractions. Patient's most recent labs and today's vitals are stable. EKG done showing new finding of right bundle-branch block. Patient asymptomatic. Patient medically clear for needed dental extractions under general anesthesia. Orders: Orders ECG 12 lead EKG 10/09/23 Z01.818 - Encounter for other preprocedural examination Coding Level of Care Code Est Pt Level 4 (38062) Diagnoses Pre-op evaluation Z01.818
== END 2023-10-09 10:59 | disposition home or self-care (01) ==
PROVIDERS: PCP Physician Assistant; Visit Provider Physician Assistant
DX: Z01.818 Encounter for other preprocedural examination (principal)
CPT/HCPCS: 99214

== ENCOUNTER → 2023-10-09 11:03 | Outpatient (REF) | payer OTHER, SELFPAY ==
--- NOTE | 2023-10-09 11:10 | ECG_ITS ---
Test Reason : PREOP Blood Pressure : / mmHG Vent. Rate : 059 BPM Atrial Rate : 059 BPM P-R Int : 182 ms QRS Dur : 128 ms QT Int : 400 ms P-R-T Axes : 063 066 056 degrees QTc Int : 396 ms Sinus bradycardia Right bundle branch block Abnormal ECG When compared with ECG of 10-SEP-2022 04:10, Right bundle branch block is now Present Referred By: Leonardo Perez Electronically Signed By:ANETTE DEL CID
== END ==
LOC: HO.CARD 11:03
PROVIDERS: PCP Physician Assistant; Visit Provider Physician Assistant
DX: Z01.818 Encounter for other preprocedural examination (principal)
CPT/HCPCS: 93005

== ENCOUNTER → 2023-10-09 11:10 | Outpatient (BNV) | payer OTHER, SELFPAY | PROVIDERS: PCP Physician Assistant; Visit Provider Internal Medicine | DX: R00.1 Bradycardia, unspecified (principal) | CPT/HCPCS: 93010 ==

== ENCOUNTER 2023-11-20 10:24 | Outpatient (REF) | payer OTHER, SELFPAY ==
--- NOTE | ~2023-11-20 | US_ITS ---
EXAMINATION: US VENOUS ULTRASOUND WITH DOPPLER LOWER EXTREMITY, LEFT CLINICAL INFORMATION: Left lower extremity pain, history of varicose veins and thrombophlebitis COMPARISON: 11/26/2018 TECHNIQUE: Ultrasound of the deep veins is performed from the hip to the calf with compression sonography and color and pulse Doppler assessment. Spectral analysis with color-flow imaging is performed. FINDINGS: There is normal venous compression and respiratory variation and augmented flow. The visualized common femoral vein, superficial femoral vein, profunda femoral vein, popliteal vein, and the trifurcation region shows no evidence of deep venous thrombosis. There is no significant popliteal fossa cyst. Superficial subcutaneous varicose vein is seen in the posterior knee which demonstrates echogenic thrombus and noncompressibility consistent with focal superficial thrombophlebitis. If the patient's symptoms persist, followup ultrasound in 5 days 7 days might be of value to exclude proximal propagation from a non-visualized calf vein. US/US venous duplex LE LT IMPRESSION: 1. No DVT demonstrated in the left lower extremity. 2. Focal superficial thrombophlebitis in a varicose vein in the posterior knee.
== END 2023-11-20 10:25 | disposition home or self-care (01) ==
LOC: HO.US 10:24
PROVIDERS: PCP Physician Assistant; Visit Provider Physician Assistant
DX: I80.292 Phlebitis and thrombophlebitis of other deep vessels of left lower extremity (principal); M79.89 Other specified soft tissue disorders
CPT/HCPCS: 93971

== ENCOUNTER → 2023-12-17 10:34 | Outpatient (BNVA) | payer OTHER, SELFPAY | PROVIDERS: PCP Physician Assistant; Visit Provider Internal Medicine ==

== ENCOUNTER 2024-01-08 09:30 | Outpatient (AMB) | payer OTHER, SELFPAY ==
--- NOTE | 2024-01-08 09:32 | A.OFFPC_ITS ---
Intake Visit Reasons: Possible shingles or rash on the forehead. Parts Administrator Required: No Information Interpreted: non-clinical & clinical Apron Man: Not Required per policy Accompanied by: Self / Same As Patient Allergies amoxicillin [From AUGMENTIN] Allergy (Severe, Verified 01/08/24 10:17) Anaphylaxis clavulanic acid [From AUGMENTIN] Allergy (Severe, Verified 01/08/24 10:17) Anaphylaxis banana Allergy (Unknown, Verified 01/08/24 10:17) Unknown ketorolac [From Toradol] Allergy (Unknown, Verified 01/08/24 10:17) Anaphylaxis kiwi Allergy (Unknown, Verified 01/08/24 10:17) Unknown prochlorperazine [From COMPAZINE] Allergy (Unknown, Verified 01/08/24 10:17) INVOLUNTARY SPASMS Medication List - Last Reconciled 01/08/24 by Leonardo Perez PA-C acetaminophen-codeine 300-30 mg 1 tab PO Q8H PRN 7 days aspirin (Adult Aspirin Regimen) 81 mg PO DAILY levothyroxine mcg PO lisinopril 5 mg PO DAILY miscellaneous medical supply (Blood Pressure Cuff) As directed peg 3350-electrolytes 236-22.74-6.74 -5.86 gram (Golytely) 240 mL PO Q10M Tobacco use date assessed: 05/01/23 Dental Screening Dental Screen Date: 05/01/23 HPI Possible shingles or rash on the forehead. HPI Details Patient is a 53-year-old female being evaluated today via video teleconference. Patient reports a nearly a 2 hour history rash formation over right upper aspect of for forehead with some numbness and tingling over her right face and eyelid. She does report feeling sick over the last few days with fever, chills nausea lack of appetite. She reports the rash is somewhat painful to palpation in presented with a grouped vesicular appearance. [facility] Medical History (Updated 01/08/24 @ 10:18 by Leonardo Perez PA-C) History of cervical cancer Hypothyroidism (~1999) HTN (hypertension) Elevated cholesterol COPD (chronic obstructive pulmonary disease) Nicotine dependence, cigarettes, uncomplicated Dysphagia Family history of pancreatic cancer Family history of colon cancer Vitamin D deficiency Rectocele Surgical History History of throat surgery (~2011) History of loop electrical excision procedure (LEEP) History of endometrial ablation History of History of tonsillectomy (~1976) Family History Mother Alzheimer's dementia CVD (cardiovascular disease) Maternal Grandfather Pancreatic cancer Social History Household Members: Children Household Members Other:: lives at home with 20-year-old daughter Housing: Apartment Do you presently have visiting nurse or other home services: No Alcohol intake: never Comment: vaginal area Patient Tobacco Use Status: Never used Tobacco Tobacco use type: Cigarette Cigarette Packs Per Day: 0.5 Cigarettes Per Day: 5 Years Smoked: (onset 11, 1ppd x 40yrs, now 1/4ppd, 40pyh) Packs Per Year: 0 Packs per year/per ci.00 e-Cigarette/Vaping Use: Never Used Second Hand Smoke Exposure: Yes Substance Use Type: Marijuana Advance Directives Date on File: 09/11/22 service: No Current occupational status: disabled Cognitive needs: No Hearing needs: No Vision needs: No Female Reproductive History Menstrual Age of Menarche: 11 Questionnaire Thrive Questionnaire Date Thrive assessed: 05/19/23 STONE-7 AMB Questionnaire STONE-7 Date STONE - 7 assessed: 05/01/23 Source: Developed by Drs. 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 Review of Systems Const Reports body aches, Reports chills, Reports fatigue and Reports headache(s) Eyes Denies loss of vision ENT Denies vertigo, Denies dizziness, Reports headache(s) and Denies sore throat Card Denies chest pain, Denies leg edema and Denies lightheadedness Resp Denies cough, Denies hemoptysis and Denies wheezing GI Denies abdominal pain, Denies melena, Denies constipation, Denies diarrhea, Reports nausea and Denies vomiting Denies urinary frequency, Denies dysuria and Denies urinary urgency Musc Denies arthralgias, Denies joint swelling, Denies numbness and Denies tingling Skin/Breast Details: + rash over right upper forehead. Neuro Denies behavioral changes, Denies vertigo, Denies dizziness, Reports headache(s), Denies loss of vision, Denies memory loss, Denies numbness and Denies tingling Psych Denies anxiety, Denies behavioral changes, Denies depression, Denies memory loss and Denies panic attacks Endo Reports fatigue Lawrence/Lymph Denies easy bleeding and Denies easy bruising Aller/Immun Denies wheezing Physical exam (Primary Care) Tobacco/Smoking Status: Tobacco use Status Tobacco use date assessed 05/01/23 01/08/24 09:32 Patient Tobacco Use Status Never used Tobacco 01/08/24 09:32 Tobacco use type Cigarette 01/08/24 09:32 e-Cigarette/Vaping Use Never Used 01/08/24 09:32 Thrive Assessment: Date of Thrive Assessment Date Thrive assessed 05/19/23 01/08/24 09:32 Telehealth Telehealth Telehealth Platform: Telephone Location of provider rendering services: practice address Location of patient: address on file Patient Identification confirmed using: Name, : Yes Telehealth method: video Patient verbally consented to treatment: Yes Patient verbally consented to billing insurance company: Yes Patient informed of any privacy concerns related to visit: Yes Minutes spent on Phone/Video with Pt.: 11 Assessment and Plan Assessment & Plan (1) Herpes zoster: Code(s): B02.9 - Zoster without complications Qualifiers: Herpes zoster complications: without complications Qualified Code(s): B02.9 - Zoster without complications Plan: Patient's rash appearance and clinical symptoms most consistent with a herpes zoster which has a period within the last 72 hours, will supply patient with herpes zoster. Advised on precautions to be taken with this particular rash. Orders: Orders Complete Blood Count no Diff 8 Weeks K21.9 - Gastro-esophageal reflux disease without esophagitis Lipid Panel 8 Weeks E78.00 - Pure hypercholesterolemia, unspecified Vitamin D 25-OH Total 8 Weeks E55.9 - Vitamin D deficiency, unspecified Comprehensive [place]. Panel Fast 8 Weeks E78.00 - Pure hypercholesterolemia, unspecified Medications: New valacyclovir (Valtrex) 1,000 mg PO Q8H 21 tabs 0RF 7 days B02.9 - Zoster without complications Coding Level of Care Code Tele Est Pt Level 3 (02576) Diagnoses Herpes zoster without complication B02.9 Herpes zoster complications: without complications
== END 2024-01-08 11:17 | disposition home or self-care (01) ==
LOC: HO.HMGH 09:30
PROVIDERS: PCP Physician Assistant; Visit Provider Physician Assistant
DX: B02.9 Zoster without complications (principal)
CPT/HCPCS: 99213

== ENCOUNTER 2024-01-10 07:46 | Outpatient (REF) | payer OTHER, SELFPAY ==
[2024-01-10 09:26] LABS: Parathyroid Hormone Intact 71.8 pg/mL (8.7-77.1)
[2024-01-10 09:42] LABS: Alanine Aminotransferase 18 U/L (0-31); Albumin Level 4.3 g/dL (3.5-5.0); Alkaline Phosphatase 55 U/L (39-117); Anion Gap 11 (12-20); Aspartate Amino Transferase 16 U/L (5-31); Bilirubin Total 0.5 mg/dL (0.0-1.0); Blood Urea Nitrogen 8 mg/dL (9-16); Calcium 9.7 mg/dL (8.4-10.2); Carbon Dioxide 26 mmol/L (22-29); Chloride 100 mmol/L (96-108); Estimated Glomerular Filt Rate > 60; Glucose Random 95 mg/dL (60-115); Phosphorus 3.7 mg/dL (2.7-4.5); Potassium 4.4 mmol/L (3.3-5.1); Sodium 133 mmol/L (135-145); Total Protein 7.4 g/dL (6.5-8.0)
[2024-01-10 09:50] LABS: TSH reflex Free T4 0.44 uIU/mL (0.32-4.0); Vitamin D 25-OH Total 55.9 ng/mL (>30)
== END 2024-01-10 07:47 | disposition home or self-care (01) ==
LOC: HO.LAB 07:46
PROVIDERS: PCP Physician Assistant; Visit Provider Internal Medicine
DX: E21.3 Hyperparathyroidism, unspecified (principal); E55.9 Vitamin D deficiency, unspecified; E03.8 Other specified hypothyroidism; E06.3 Autoimmune thyroiditis
CPT/HCPCS: 36415; 80053; 82306; 83970; 84100; 84443

== ENCOUNTER 2024-02-05 16:16 | Outpatient (REF) | payer OTHER, SELFPAY ==
--- NOTE | ~2024-02-05 | CT_ITS ---
EXAMINATION: CT LOW-DOSE SCREENING CHEST WITHOUT CONTRAST CLINICAL INFORMATION: Nicotine dependence, cigarettes, uncomplicated. The patient is a current smoker with a 21 pack-year history of smoking. COMPARISON: X-ray chest 01/31/2023. CT chest 02/17/2022. TECHNIQUE: Multidetector volumetric CT imaging of the chest is performed on a Siemens SOMATOM Definition scanner without contrast using low dose technique. Additional 2D coronal and sagittal reformatted images and axial 3D maximum intensity projection (MIP) images are generated on the CT workstation. This CT examination was performed using dose optimization techniques as appropriate, variously including the following: *Automated exposure control *Adjustment of mA and/or kV according to patient size (this includes techniques or standardized protocols for targeted exams where dose is matched to indication/reason for exam; i.e. extremities or head) *Use of iterative reconstruction technique TOTAL EXAM DLP: 83 mGy-cm. CTDIvol: 2.54 mGy. FINDINGS: PULMONARY NODULES: No suspicious pulmonary nodules. Occasional small mucous plugging. Occasional small juxtapleural nodularity not appreciably changed. Anterior right lower lobe mucous plugging versus micronodule series 4 image 241 at 2.5 mm. LUNGS: Emphysematous changes. No dominant consolidations. Lingular and posterior basilar right lower lobe atelectatic changes again observed. MEDIASTINUM: No new suspicious mediastinal adenopathy. No new pleural effusions. CORONARY ARTERY CALCIFICATION: Present. THYROID GLAND: Unremarkable to the extent seen. CARDIOVASCULAR STRUCTURES: Aortic and heart size normal. No pericardial effusion. CHEST WALL/AXILLA: Unremarkable. UPPER ABDOMEN: Included portions of the solid organs in the upper abdomen unremarkable on noncontrast imaging. OSSEOUS STRUCTURES: Minimal spondylitic changes. No acute compression fractures. CT/CT lung screening IMPRESSION: No new suspicious pulmonary masses. Occasional juxtapleural nodularity not appreciably changed. Small new micronodule versus mucous plugging in the anterior right lower lobe. Emphysematous and atelectatic changes. Other incidental findings as noted above. ASSESSMENT: 1. Lung-RADS Category 2: Benign appearance or behavior of nodules. 2. Lung-RADS Category S: Negative. There are no clinically significant or potentially clinically significant findings not related to the lungs requiring urgent additional evaluation. RECOMMENDATION: Continued routine annual low-dose CT lung screening in 1 year is recommended. An order for CT CHEST LOW DOSE CANCER SCREENING ([id number]) can be placed. Electronically signed by: Richy Haley MD 03/05/2024 09:13 AM MIRNA FIGUEROA
== END 2024-02-05 16:17 | disposition home or self-care (01) ==
LOC: HO.CT 16:16
PROVIDERS: PCP Physician Assistant; Visit Provider Physician Assistant Medical
DX: Z12.2 Encounter for screening for malignant neoplasm of respiratory organs (principal); F17.210 Nicotine dependence, cigarettes, uncomplicated
CPT/HCPCS: 71271

== ENCOUNTER 2024-03-10 09:39 | Outpatient (REF) | payer OTHER, SELFPAY ==
[2024-03-10 11:00] LABS: Hematocrit 38.2 % (37.0-47.0); Hemoglobin 12.7 g/dl (12.0-16.0); Mean Corpuscular HGB Conc 33.2 g/dl (31.0-35.0); Mean Corpuscular Hemoglobin 29.3 pg (27.0-33.0); Mean Corpuscular Volume 88.2 fL (80.0-98.0); Mean Platelet Volume 9.4 fL (9.4-12.3); Platelet Count 288 X10*3/uL (160-400); Red Blood Count 4.33 X10*6/uL (4.20-5.50); Red Cell Distribution Width 13.2 % (11.0-16.0); White Blood Count 5.5 X10*3/uL (4.8-10.8)
[2024-03-10 11:52] LABS: Alanine Aminotransferase 25 U/L (0-31); Albumin Level 4.1 g/dL (3.5-5.0); Alkaline Phosphatase 51 U/L (39-117); Anion Gap 11 (12-20); Aspartate Amino Transferase 18 U/L (5-31); Bilirubin Total 0.3 mg/dL (0.0-1.0); Blood Urea Nitrogen 9 mg/dL (9-16); Calcium 9.1 mg/dL (8.4-10.2); Carbon Dioxide 27 mmol/L (22-29); Chloride 102 mmol/L (96-108); Cholesterol 347 mg/dL (<200); Estimated Glomerular Filt Rate > 60; Glucose Fasting 58 mg/dL (60-99); HDL Cholesterol 56 mg/dL (>40); LDL Cholesterol Calculated 240 mg/dL (<100); Potassium 4.4 mmol/L (3.3-5.1); Sodium 136 mmol/L (135-145); Triglycerides 255 mg/dL (<150)
[2024-03-10 12:04] LABS: Vitamin D 25-OH Total 43.9 ng/mL (>30)
== END 2024-03-10 09:40 | disposition home or self-care (01) ==
LOC: HO.LAB 09:39
PROVIDERS: PCP Physician Assistant; Visit Provider Physician Assistant
DX: K21.9 Gastro-esophageal reflux disease without esophagitis (principal); E78.00 Pure hypercholesterolemia, unspecified; E55.9 Vitamin D deficiency, unspecified
CPT/HCPCS: 36415; 80053; 80061; 82306; 85027

== ENCOUNTER 2024-03-14 08:50 | Outpatient (REF) | payer OTHER, SELFPAY ==
[2024-03-14 10:10] LABS: Blood Urea Nitrogen 10 mg/dL (9-16)
[2024-03-14 10:16] LABS: Anion Gap 10 (12-20); Blood Urea Nitrogen 9 mg/dL (9-16); Calcium 9.3 mg/dL (8.4-10.2); Carbon Dioxide 32 mmol/L (22-29); Chloride 96 mmol/L (96-108); Estimated Glomerular Filt Rate > 60; Glucose Random 104 mg/dL (60-115); Potassium 4.5 mmol/L (3.3-5.1); Sodium 133 mmol/L (135-145)
[2024-03-14 10:33] LABS: TSH reflex Free T4 4.81 uIU/mL (0.32-4.0)
[2024-03-14 12:26] LABS: Free T4 (Free Thyroxine) 1.11 ng/dL (0.71-1.85)
== END 2024-03-14 08:51 | disposition home or self-care (01) ==
LOC: HO.LAB 08:50
PROVIDERS: PCP Physician Assistant; Referring Provider Internal Medicine; Visit Provider Physician Assistant
DX: E16.2 Hypoglycemia, unspecified (principal); E03.8 Other specified hypothyroidism; E06.3 Autoimmune thyroiditis; R10.9 Unspecified abdominal pain; G89.29 Other chronic pain
CPT/HCPCS: 36415; 80048; 84439; 84443; 84520

== ENCOUNTER 2024-03-17 10:01 | Outpatient (AMB) | payer OTHER, SELFPAY ==
[2024-03-17 10:05] VITALS: BP 118/80; PULSE 57; O2SAT 97; BMI 25.4
--- NOTE | 2024-03-17 10:05 | MHC.PC.OV ---
Vital Signs 03/17/24 10:05 Height 5 ft 5 in Weight 152 lb 8 oz BMI 25.4 BP 118/80 Blood Pressure Location Lt brachial Position Sitting Pulse 57 Pulse Source Pulse Oximeter Pulse Oximetry (%) 97 Oxygen Delivery Method Room Air Intake Visit Reasons: PE Intake Note: Patient is here today for a physical. Telemarketing Manager Required: No Accompanied by: Self / Same As Patient Allergies amoxicillin [From AUGMENTIN] Allergy (Severe, Verified 03/17/24 10:16) Anaphylaxis clavulanic acid [From AUGMENTIN] Allergy (Severe, Verified 03/17/24 10:16) Anaphylaxis banana Allergy (Unknown, Verified 03/17/24 10:16) Unknown ketorolac [From Toradol] Allergy (Unknown, Verified 03/17/24 10:16) Anaphylaxis kiwi Allergy (Unknown, Verified 03/17/24 10:16) Unknown prochlorperazine [From COMPAZINE] Allergy (Unknown, Verified 03/17/24 10:16) INVOLUNTARY SPASMS Medication List - Last Reconciled 03/17/24 by Leonardo Perez PA-C acetaminophen-codeine 300-30 mg 1 tab PO Q8H PRN 7 days aspirin (Adult Aspirin Regimen) 81 mg PO DAILY levothyroxine mcg PO lisinopril 20 mg PO BID 90 days miscellaneous medical supply (Blood Pressure Cuff) As directed peg 3350-electrolytes 236-22.74-6.74 -5.86 gram (Golytely) 240 mL PO Q10M valacyclovir (Valtrex) 1,000 mg PO Q8H 7 days Tobacco use date assessed: 05/01/23 Dental Screening Dental Screen Date: 05/01/23 HPI PE HPI Details Patient is a 53-year-old female here today for a follow-up visit. Patient's past medical history significant for hypertension, hyperlipidemia, Billy's hypothyroidism generalized anxiety disorder. Concern--> Reports having right shoulder pain over the last 7 months , reports initially her symptoms were just crepitus though has turned into pain more located over deltoid outer region of her right shoulder. She can not recall any acute injury to her right shoulder. .. Hyperlipidemia: Most recent labs showing very elevated total cholesterol and LDL. She has been tried on statin therapy though had side effects that were intolerable. She reports she feels much better now being off of statin therapy. Her cholesterol issues may be related to her Billy's thyroid condition .. Hypothyroidism: Most recent TSH slightly high at 4. She continues on levothyroxine 100 mcg tablets use for hypo versus hyper thyroidism symptoms. She is now seeing an press and blow machine tender at [facility]. She is concerned she continues to have a thyroid issue. She is considering a total thyroidectomy .. Hypertension: Patient's blood pressure acceptable today in office. Patient continues on lisinopril 20 mg. 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 Vaccine: needs Tdap (declines)? Need Shingles and PCV (declines) , up-to-date with COVID vaccine Laboratory Tests 03/10/24 03/14/24 09:47 09:12 Random Glucose 104 Fasting Glucose 58 L* Triglycerides 255 H Cholesterol 347 H LDL Cholesterol, C alc 240 H TSH 4.81 H Free T4 1.11 PFSH Medical History Thrombophlebitis of left leg History of cervical cancer Hypothyroidism (~1999) HTN (hypertension) Elevated cholesterol COPD (chronic obstructive pulmonary disease) Nicotine dependence, cigarettes, uncomplicated Dysphagia Family history of pancreatic cancer Family history of colon cancer Vitamin D deficiency Rectocele Surgical History History of throat surgery (~2011) History of loop electrical excision procedure (LEEP) History of endometrial ablation History of History of tonsillectomy (~1976) Family History Mother Alzheimer's dementia CVD (cardiovascular disease) Maternal Grandfather Pancreatic cancer Social History (Updated 03/17/24 @ 10:22 by Leonardo ePrez PA-C) Household Members: Children Household Members Other:: lives at home with 20-year-old daughter Housing: Apartment Do you presently have visiting nurse or other home services: No Alcohol intake: never Comment: vaginal area Patient Tobacco Use Status: Former Tobacco user Tobacco use type: Cigarette Cigarette Packs Per Day: 0.5 Cigarettes Per Day: 5 Years Smoked: (onset 11, 1ppd x 40yrs, now 1/4ppd, 40pyh) e-Cigarette/Vaping Use: Never Used Second Hand Smoke Exposure: Yes Substance Use Type: Marijuana Advance Directives Date on File: 09/11/22 service: No Current occupational status: disabled Cognitive needs: No Hearing needs: No Vision needs: No Female Reproductive History Menstrual Age of Menarche: 11 Questionnaire PHQ-9 Over the last 2 weeks, how often have you been bothered by any of the following problems? 1. Little interest or pleasure in doing things: not at all 2. Feeling down, depressed, or hopeless: not at all 3. Trouble falling or staying asleep, or sleeping too much: not at all 4. Feeling tired or having little energy: several days 5. Poor appetite or overeating: not at all 6. Feeling bad about yourself - or that you are a failure or have let yourself or your family down: not at all 7. Trouble concentrating on things, such as reading the newspaper or watching television: not at all 8. Moving or speaking so slowly that other people could have noticed. Or the opposite - being so fidgety or restless that you have been moving around a lot more than usual: not at all 9. Thoughts that you would be better off or of hurting yourself in some way: not at all Total score: 1 Depression Screening Interpretation: Positive Depression Screening Follow-up: Existing condition Depression Screening Done: Yes 56373 - PHQ-9 Billing: Yes Source: Developed by Drs. 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 Thrive Questionnaire Date Thrive assessed: 03/17/24 I am a: Patient What is your living situation today?: I have a steady place to live Within the past 12 months, did the food you bought not last and you didn't have the money to get more?: Never true Within the past 12 months, did you worry whether your food would run out before you got money to buy more?: Never true Do you have trouble paying for medicines?: No Do you have trouble getting transportation to medical appointments?: No Do you have trouble paying your heating and electricity bill?: No Do you have trouble taking care of your child, family member or friend?: No Do you have trouble with day-to-day activities such as bathing, preparing meals, shopping, managing finances, etc.?: No Are you currently unemployed and looking for a job?: No Are you interested in more education?: No Please select the resources that you would like help with: None Currently or been in a relationship where the following occur: No concerns reported THRIVE Score: 0 AUDIT C Alcohol Use Questionnaire (AUDIT-C) 1. How often do you have a drink containing alcohol?: Never 3. How often do you have six or more drinks on one occasion?: Never Total Score: 0 STONE-7 AMB Questionnaire STONE-7 Date STONE - 7 assessed: 05/01/23 Feeling nervous, anxious, or on edge: 0 = Not at all Not being able to stop or control worryin = Not at all Worrying too much about different things: 0 = Not at all Trouble relaxin = Not at all Being so restless that it is hard to sit still: 0 = Not at all Becoming easily annoyed or irritable: 0 = Not at all Feeling afraid as if something awful might happen: 0 = Not at all Total STONE-7 score (0-4 normal; 5-9 mild; 10-14 moderate; 15-21 severe): 0 Source: Developed by Drs. 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 STONE-7 Assessment Billing STONE-7 Assessment Tool: STONE-7 Assessment 09770 Review of Systems Const Denies body aches, Denies chills, Denies excessive sweating, Denies fatigue, Denies fever(s) and Denies headache(s) Eyes Denies blurry vision ENT Denies dysphagia, Denies vertigo, Denies dizziness, Denies headache(s), Denies hearing loss and Denies tinnitus Card Denies chest pain, Denies chest pain with activity, Denies syncope, Denies irregular heart rhythm and Denies dyspnea Resp Denies chest congestion, Denies cough, Denies hemoptysis, Denies dyspnea and Denies wheezing GI Denies abdominal pain, Denies melena, Denies hematochezia, Denies coffee ground emesis, Denies dysphagia, Denies diarrhea, Denies nausea and Denies vomiting Denies urinary frequency, Denies dysuria, Denies urinary hesitancy and Denies urinary urgency Musc Denies arthralgias, Denies limited range of motion, Denies muscle cramps and Denies muscle weakness Skin/Breast Denies rash and Denies skin ulcer Neuro Denies Abnormal speech present, Denies confusion, Denies vertigo, Denies dizziness, Denies syncope, Denies headache(s), Denies memory loss and Denies seizure-like activity Psych Denies anxiety, Denies confusion, Denies depression, Denies memory loss, Denies panic attacks and Denies paranoia Endo Denies excessive sweating, Denies fatigue, Denies flushing, Denies polydipsia and Denies polyuria Aller/Immun Denies wheezing Physical exam (Primary Care) Vital Signs: Last Vital Signs Pulse 57 03/17/24 10:05 BP 118/80 03/17/24 10:05 Pulse Ox 97 03/17/24 10:05 Oxygen Delivery Method Room Air 03/17/24 10:05 BMI result Body Mass Index 25.4 Tobacco/Smoking Status: Tobacco use Status Tobacco use date assessed 05/01/23 03/17/24 10:05 Patient Tobacco Use Status Never used Tobacco 03/17/24 10:05 Tobacco use type Cigarette 03/17/24 10:05 e-Cigarette/Vaping Use Never Used 03/17/24 10:05 PHQ-9: PHQ-9 Score PHQ-9: Total score 1 03/17/24 10:08 Depression Screening Interpretation: Positive Depression Screening Follow-up: Existing condition Thrive Assessment: Date of Thrive Assessment Date Thrive assessed 03/17/24 03/17/24 10:08 Currently or been in a relationship where the following occur: No concerns reported Const General: cooperative, comfortable, no acute distress, alert and awake; No confusion Orientation/consciousness: oriented to person, oriented to place, patient oriented x3 and No confusion HENMT Head: Yes normocephalic Ears: external ears normal and TM's normal bilaterally Face and sinus: No sinus tenderness Mouth: Normal oral and palatal mucosa present and tongue normal Teeth and gingiva: dentition normal and gingiva normal Throat: Yes posterior oropharynx normal, Yes tonsils normal and Yes uvula midline Eyes Conjunctivae: conjunctivae normal Sclerae: sclerae normal Pupils: Equal, round and reactive pupils present EOM: EOMs intact bilaterally Direct Ophthalmoscopy: No no photophobia Neck Neck: Yes no lymphadenopathy, No tender and Yes no JVD Thyroid: Thyroid normal Carotids: no bruits Chest Chest palpation & inspection: no tenderness Resp Effort & Inspection: normal respiratory effort, no audible wheezes, not labored and no stridor Auscultation: no crackles, no rales, no rhonchi and no wheezes Cardio Jugular venous distension: no JVD Rate: regular rate, not bradycardic and not tachycardic Rhythm: regular rhythm Bruits: no carotid bruits Peripheral pulses: Peripheral pulses 2+ throughout GI Inspection: Yes normal to inspection, No abdominal wall ecchymosis and No visible herniation Palpation (GI): Soft to palpation, nontender, no guarding, not rigid and No hepatosplenomegaly present Auscultation: normoactive bowel sounds General: Yes no CVA tenderness Back/Spine/Pelvis Back: no CVA tenderness and No back tenderness Cervical Spine: cervical ROM normal Thoracic/Lumbar Spine: thoracic and lumbar spine normal to inspection, straight leg raise negative bilaterally, No thoraco-lumbar ROM limited and No lumbar spinal tenderness Skin Lesions: no lesions Rashes: no rashes Wounds: no wounds Neuro General: oriented to person, oriented to place, patient oriented x3, CN's II-XI intact bilaterally and No confusion Cranial nerves: Yes Equal, round and reactive pupils present and Yes Normal accommodation reflex present Cognition (Neuro): normal cognition Speech: No Abnormal speech present Gait exam (Neuro): Normal gait present Motor exam (neuro): 5/5 motor strength present throughout Extrem Other: RIGHT SHOULDER: SLIGHT DECREASE IN HER RIGHT SHOULDER RANGE OF MOTION. 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; E06.3 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 Chronic obstructive pulmonary disease, unspecified COPD type J44.9 COPD type: unspecified COPD MDD (major depressive disorder), recurrent episode, moderate F33.1 Additional Codes STONE-7 Assessment Billing - STONE-7 Assessment Tool: STONE-7 Assessment 53330 ([id number]) PHQ-9 - 86171 - PHQ-9 Billing: Yes ([id number]) Assessment & Plan Assessment & Plan (1) Annual physical exam: Code(s): Z00.00 - Encounter for general adult medical examination without abnormal findings Category: Medical Plan: As per HPI (2) Right shoulder tendinitis: Code(s): M77.8 - Other enthesopathies, not elsewhere classified Category: Medical Plan: As per HPI, she reports 7 month history of right shoulder discomfort. She can not recall an acute injury to her right shoulder. She reports having pain with lifting her arm her head. She would likely benefit from formal physical therapy. Will get x-ray to evaluate for any AC joint separation or advanced arthritis. (3) HTN (hypertension): Code(s): I10 - Essential (primary) hypertension Category: Medical Qualifiers: Hypertension type: primary hypertension Qualified Code(s): I10 - Essential (primary) hypertension Plan: Patient's blood pressure acceptable today in office. Will continue current dose of lisinopril 20 mg. Goal blood pressures to remain below 140/90 (4) Hypothyroidism: Onset Date: ~1999 Comment: (dx in 1999, was dx Billy's disease in 2011) Code(s): E03.9 - Hypothyroidism, unspecified Category: Medical Qualifiers: 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 Qualified Code(s): E03.8 - Other specified hypothyroidism; E06.3 - Autoimmune thyroiditis Plan: Patient is followed by press and blow machine tender at [facility]. Does take 100 mcg of levothyroxine depending on her hyper or hypothyroid symptoms. There was thought that her thyroid is causing a lot of her cardiac symptoms. Will Be considering a thyroidectomy (5) COPD (chronic obstructive pulmonary disease): Code(s): J44.9 - Chronic obstructive pulmonary disease, unspecified Category: Medical Qualifiers: COPD type: unspecified COPD Qualified Code(s): J44.9 - Chronic obstructive pulmonary disease, unspecified Plan: Patient reports her breathing has been stable. Has not had any COPD exacerbations. (6) MDD (major depressive disorder), recurrent episode, moderate: Code(s): F33.1 - Major depressive disorder, recurrent, moderate Category: Medical Plan: Patient reports her depression has been stable. Not taking any medication at this time. Orders: Orders Comprehensive [place]. Panel Fast Today I10 - Essential (primary) hypertension TSH reflex Free T4 Today E03.8 - Other specified hypothyroidism, E06.3 - Autoimmune thyroiditis Lipid Panel Today E78.00 - Pure hypercholesterolemia, unspecified XR shoulder RT min 2V Today M77.8 - Other enthesopathies, not elsewhere classified PT Evaluation and Treatment Today M77.8 - Other enthesopathies, not elsewhere classified Medications: Changed From lisinopril 20 mg PO BID 90 days 180 tabs 1RF I10 - Essential (primary) hypertension To lisinopril 20 mg PO DAILY 90 days 90 tabs 1RF I10 - Essential (primary) hypertension
== END 2024-03-17 10:41 | disposition home or self-care (01) ==
PROVIDERS: PCP Physician Assistant; Visit Provider Physician Assistant
DX: Z00.00 Encounter for general adult medical examination without abnormal findings (principal); J44.9 Chronic obstructive pulmonary disease, unspecified; F33.1 Major depressive disorder, recurrent, moderate; M77.8 Other enthesopathies, not elsewhere classified; I10 Essential (primary) hypertension; E03.8 Other specified hypothyroidism; E06.3 Autoimmune thyroiditis

== ENCOUNTER → 2024-03-17 10:01 | Outpatient (BNVA) | payer OTHER, SELFPAY | PROVIDERS: PCP Physician Assistant; Visit Provider Physician Assistant | DX: Z00.00 Encounter for general adult medical examination without abnormal findings (principal); M77.8 Other enthesopathies, not elsewhere classified; I10 Essential (primary) hypertension; E03.8 Other specified hypothyroidism; E06.3 Autoimmune thyroiditis; J44.9 Chronic obstructive pulmonary disease, unspecified; F33.1 Major depressive disorder, recurrent, moderate | CPT/HCPCS: 96127; 99396 ==

== ENCOUNTER 2024-03-24 13:34 | Outpatient (REF) | payer OTHER, SELFPAY ==
--- NOTE | ~2024-03-24 | XR_ITS ---
EXAMINATION: XR SHOULDER, RIGHT CLINICAL INFORMATION: M77.8 - Other enthesopathies, not elsewhere classified COMPARISON: None available. TECHNIQUE: AP external rotation, Grashey, scapular Y, and axillary views of the right shoulder. FINDINGS: The bones and soft tissues are normal. No fracture. Glenohumeral and acromioclavicular alignment is anatomic with normal joint space. No abnormal soft tissue calcifications. XR/XR shoulder RT min 2V IMPRESSION: Normal right shoulder. Electronically signed by: Kenneth Garcia MD 03/30/2024 07:15 AM [facility]
== END 2024-03-24 13:35 | disposition home or self-care (01) ==
LOC: HO.XRAY 13:34
PROVIDERS: PCP Physician Assistant; Visit Provider Physician Assistant
DX: M77.8 Other enthesopathies, not elsewhere classified (principal)
CPT/HCPCS: 73030

== ENCOUNTER 2024-05-01 06:30 | Outpatient (REF) | payer OTHER, SELFPAY ==
[2024-05-01 08:27] LABS: Parathyroid Hormone Intact 72.1 pg/mL (8.7-77.1)
[2024-05-01 08:34] LABS: Alanine Aminotransferase 70 U/L (0-31); Albumin Level 4.5 g/dL (3.5-5.0); Alkaline Phosphatase 43 U/L (39-117); Anion Gap 15 (12-20); Aspartate Amino Transferase 45 U/L (5-31); Bilirubin Total 0.3 mg/dL (0.0-1.0); Blood Urea Nitrogen 8 mg/dL (9-16); Calcium 9.7 mg/dL (8.4-10.2); Carbon Dioxide 26 mmol/L (22-29); Chloride 105 mmol/L (96-108); Estimated Glomerular Filt Rate > 60; Glucose Random 126 mg/dL (60-115); Phosphorus 2.7 mg/dL (2.7-4.5); Potassium 4.4 mmol/L (3.3-5.1); Sodium 142 mmol/L (135-145); Total Protein 7.5 g/dL (6.5-8.0)
[2024-05-01 08:54] LABS: TSH reflex Free T4 1.32 uIU/mL (0.32-4.0)
[2024-05-08 15:39] LABS: Renin 6.93 ng/mL/h (0.25-5.82)
== END 2024-05-01 06:31 | disposition home or self-care (01) ==
LOC: HO.LAB 06:30
PROVIDERS: PCP Physician Assistant; Visit Provider Internal Medicine
DX: E21.3 Hyperparathyroidism, unspecified (principal)
CPT/HCPCS: 36415; 80053; 82088; 83970; 84100; 84244; 84443

== ENCOUNTER 2024-05-01 06:50 | Day surgery (SDC) | payer OTHER, SELFPAY ==
[2024-04-28 11:40] VITALS: BMI 24.5
--- NOTE | 2024-04-29 09:09 | HO.ANESPROP2 ---
HPI - Anesthesia Eval Consult details Narrative: 53yo F for Upper Endoscopy and Colonoscopy Follow [facility] Cardiology for palps. Stable at 01/2024 office visit [facility] Active Problems Active Problems: All Active Problems (Updated 03/31/24 @ 09:53 by Leonardo Perez PA-C) Rotator cuff impingement syndrome of right shoulder (Acute) Annual physical exam (Acute) Right shoulder tendinitis (Acute) Hypoglycemia (Acute) Herpes zoster (Acute) Hypothyroidism (Acute ~1999) HTN (hypertension) (Acute) High cholesterol (Acute) COPD (chronic obstructive pulmonary disease) (Acute) Nicotine dependence, cigarettes, uncomplicated (Acute) Left leg swelling (Acute) RBBB (Acute) Cervical radiculitis (Acute) Thickened small bowel (Acute) Family history of pancreatic cancer (Acute) Change in bowel habit (Acute) Hyperparathyroidism (Acute) Rectocele (Acute) Constipation (Acute) Billy's disease (Acute) Chronic abdominal pain (Acute) Labile blood pressure (Acute) Autoimmune disease (Acute) Small intestinal bacterial overgrowth (SIBO) (Acute) Hypophosphatemia (Acute) Neuroforaminal stenosis of thoracic spine (Acute) RUQ abdominal pain (Acute) SI (sacroiliac) pain (Acute) Thoracic radiculitis (Acute) Thyromegaly (Acute) Hypercalcemia (Acute) Pleuritic pain (Acute) GERD (gastroesophageal reflux disease) (Acute) Hypocalcemia (Acute) Hyperglycemia (Acute) Dark stools (Acute) Myalgia (Acute) Anemia (Acute) Pelvic inflammatory disease (PID) (Acute) Peripheral neuropathy (Acute) Neha-Danlos syndrome (Acute) Chronic pancreatitis (Acute) Tubular adenoma of colon (Acute) STONE (generalized anxiety disorder) (Acute) MDD (major depressive disorder), recurrent episode, moderate (Acute) IBS (irritable bowel syndrome) (Acute) Lumbar spine pain (Acute) Diverticulitis (Acute) Heart palpitations (Acute) Abnormal stress ECG with treadmill (Acute) Syncope (Acute) Facial paresthesia (Acute) Tongue lesion (Acute) HPV in female (Acute) VERONIKA III (cervical intraepithelial neoplasia grade III) with severe dysplasia (Acute) Unintentional weight loss (Acute) Vitamin D deficiency (Acute) Past Medical History Medical History Thrombophlebitis of left leg History of cervical cancer Hypothyroidism (~1999) HTN (hypertension) Elevated cholesterol COPD (chronic obstructive pulmonary disease) Nicotine dependence, cigarettes, uncomplicated Dysphagia Family history of pancreatic cancer Family history of colon cancer Vitamin D deficiency Rectocele Family History Family History Mother Alzheimer's dementia CVD (cardiovascular disease) Maternal Grandfather Pancreatic cancer Family history of problems with anesthesia: No Surgical History Surgical History History of throat surgery (~2011) History of loop electrical excision procedure (LEEP) History of endometrial ablation History of History of tonsillectomy (~1976) History of Problems with Anesthesia: No Social History Social History (Updated 03/17/24 @ 10:22 by Leonardo Perez PA-C) Household Members: Children Household Members Other:: lives at home with 20-year-old daughter Housing: Apartment Do you presently have visiting nurse or other home services: No Alcohol intake: never Comment: vaginal area Patient Tobacco Use Status: Former Tobacco user Tobacco use type: Cigarette Cigarette Packs Per Day: 0.5 Cigarettes Per Day: 5 Years Smoked: (onset 11, 1ppd x 40yrs, now 1/4ppd, 40pyh) e-Cigarette/Vaping Use: Never Used Second Hand Smoke Exposure: Yes Substance Use Type: Marijuana Advance Directives Date on File: 09/11/22 service: No Current occupational status: disabled Cognitive needs: No Hearing needs: No Vision needs: No Meds Allergies Allergy/AdvReac Type Severity Reaction Status Date / Time amoxicillin [From AUGMENTIN] Allergy Severe Anaphylaxis Verified 03/17/24 10:16 clavulanic acid Allergy Severe Anaphylaxis Verified 03/17/24 10:16 [From AUGMENTIN] banana Allergy Unknown Unknown Verified 03/17/24 10:16 ketorolac [From Toradol] Allergy Unknown Anaphylaxis Verified 03/17/24 10:16 kiwi Allergy Unknown Unknown Verified 03/17/24 10:16 prochlorperazine Allergy Unknown INVOLUNTARY Verified 03/17/24 10:16 [From COMPAZINE] SPASMS Home Medications ?Medication ?Instructions ?Recorded ?Confirmed ?Last Taken ?Type aspirin 81 mg tablet,delayed 81 mg PO DAILY 12/17/23 03/17/24 Unknown History release (Adult Aspirin Regimen) levothyroxine 100 mcg tablet mcg PO 12/17/23 03/17/24 Unknown History Exam Height,Weight and Vital Signs: Height 5 ft 5 in Weight 66.678 kg Assessment and Plan Assessment Anesthesia Assessment: Chart Reviewed Final Anesthetic Review Family History of Problems with Anesthesia: No History of Problems with Anesthesia: No
[2024-05-01 07:13] VITALS: BMI 24.1
[2024-05-01 07:20] VITALS: BP 158/107; PULSE 75; RESP 15; TEMP 37.1; O2SAT 98
[2024-05-01] MEDS: Lactated Ringers 1,000 ML 100 ML IVCONT (07:35)
--- NOTE | 2024-05-01 07:55 | MHC.SHP ---
Pre-Procedural Eval Section A - 24 Hr Update-Section A only Date of Service: 05/01/24 Section B - Complete if H&P > 30 days Chief Complaint: L sided abd pain, change in bowel habits, unintent Details of Present Illness: Family history of pancreatic cancer Rectocele Perineal abscess Diarrhea Pelvic pain Elevated cholesterol Unintentional weight loss Fever of unknown origin History of cervical cancer Family history of colon cancer Nicotine dependence, cigarettes, uncomplicated HTN (hypertension) Near syncope COPD (chronic obstructive pulmonary disease) Dysphagia Vitamin D deficiency Hypothyroidism (~1999) Surgical History History of endometrial ablation History of tonsillectomy (~1976) History of History of throat surgery (~2011) Present Medications: see Short Stay Collaborative assessment Allergies: Allergies Allergy/AdvReac Type Severity Reaction Status Date / Time amoxicillin [From AUGMENTIN] Allergy Severe Anaphylaxis Verified 03/17/24 10:16 clavulanic acid Allergy Severe Anaphylaxis Verified 03/17/24 10:16 [From AUGMENTIN] banana Allergy Unknown Unknown Verified 03/17/24 10:16 ketorolac [From Toradol] Allergy Unknown Anaphylaxis Verified 03/17/24 10:16 kiwi Allergy Unknown Unknown Verified 03/17/24 10:16 prochlorperazine Allergy Unknown INVOLUNTARY Verified 03/17/24 10:16 [From COMPAZINE] SPASMS [id number] Reductase Allergy Muscle Verified 05/01/24 07:18 Inhibitor cramps Review of Systems Review of Systems Comment: Ten point ROS negative Exam Exam Comment: Gen appear: No acute distress HEENT: no icterus Chest: No overt resp distress Abd: soft, nontender, nondistended Psych: Stable affect, answering questions appropriately Neuro: A/Ox3 noted to move all extremities spontaneously Ext: no peripheral edema Plan Diagnosis/Plan: Unchanged I have reviewed the history and physical and performed a pertinent physical examination on my patient. No changes have occurred unless specified. Time Spent With Patient Time: Total time managing care of this patient today ____ minutes.
--- NOTE | 2024-05-01 08:53 | P.CONAN_ITS ---
[facility] [place] Active Problems Active Problems: All Active Problems Rotator cuff impingement syndrome of right shoulder (Acute) Right shoulder tendinitis (Acute) Hypoglycemia (Acute) Herpes zoster (Acute) Left leg swelling (Acute) RBBB (Acute) Cervical radiculitis (Acute) Thickened small bowel (Acute) Change in bowel habit (Acute) Hyperparathyroidism (Acute) Constipation (Acute) Billy's disease (Acute) Chronic abdominal pain (Acute) Labile blood pressure (Acute) Autoimmune disease (Acute) Small intestinal bacterial overgrowth (SIBO) (Acute) Hypophosphatemia (Acute) Neuroforaminal stenosis of thoracic spine (Acute) RUQ abdominal pain (Acute) SI (sacroiliac) pain (Acute) Thoracic radiculitis (Acute) Thyromegaly (Acute) Hypercalcemia (Acute) Pleuritic pain (Acute) GERD (gastroesophageal reflux disease) (Acute) Hypocalcemia (Acute) Hyperglycemia (Acute) Dark stools (Acute) Myalgia (Acute) Anemia (Acute) Pelvic inflammatory disease (PID) (Acute) VERONIKA III (cervical intraepithelial neoplasia grade III) with severe dysplasia (Acute) HPV in female (Acute) Unintentional weight loss (Acute) Tongue lesion (Acute) High cholesterol (Acute) Facial paresthesia (Acute) Syncope (Acute) Abnormal stress ECG with treadmill (Acute) Heart palpitations (Acute) Diverticulitis (Acute) Lumbar spine pain (Acute) IBS (irritable bowel syndrome) (Acute) MDD (major depressive disorder), recurrent episode, moderate (Acute) Annual physical exam (Acute) STONE (generalized anxiety disorder) (Acute) Tubular adenoma of colon (Acute) Chronic pancreatitis (Acute) Neha-Danlos syndrome (Acute) Peripheral neuropathy (Acute) Hypothyroidism (Acute ~2000) HTN (hypertension) (Acute) COPD (chronic obstructive pulmonary disease) (Acute) Nicotine dependence, cigarettes, uncomplicated (Acute) Family history of pancreatic cancer (Acute) Rectocele (Acute) Vitamin D deficiency (Acute) Past Medical History Medical History Neha-Danlos syndrome Neuropathy Thrombophlebitis of left leg Rectocele Elevated cholesterol History of cervical cancer Family history of colon cancer Nicotine dependence, cigarettes, uncomplicated HTN (hypertension) Family history of pancreatic cancer COPD (chronic obstructive pulmonary disease) Dysphagia Vitamin D deficiency Hypothyroidism (~1999) Functional capacity: independent ambulation Patient : No Family History Family History Mother Alzheimer's dementia CVD (cardiovascular disease) Maternal Grandfather Pancreatic cancer Family history of problems with anesthesia: No Surgical History Surgical History History of loop electrical excision procedure (LEEP) History of endometrial ablation History of tonsillectomy (~1976) History of History of throat surgery (~2011) History of Problems with Anesthesia: No Social History Social History Household Members: Children Household Members Other:: lives at home with 20-year-old daughter Housing: Apartment Do you presently have visiting nurse or other home services: No Alcohol intake: never Comment: vaginal area Patient Tobacco Use Status: Former Tobacco user Tobacco use type: Cigarette Cigarette Packs Per Day: 0.5 Cigarettes Per Day: 5 Years Smoked: (onset 11, 1ppd x 40yrs, now 1/4ppd, 40pyh) e-Cigarette/Vaping Use: Never Used Second Hand Smoke Exposure: Yes Use of substances other than those prescribed or required for medical reasons: Yes Substance Use Type: Marijuana Substance Use Type Other:: smoked and edibles-last used 1/1 am Substance Use Frequency: Daily Are you DNR?: No Advance Directives: No Advance Directives Information Provided: Yes Advance Directives Date on File: 09/11/22 service: No Current occupational status: disabled Cognitive needs: No Hearing needs: No Vision needs: No Meds Allergies Allergy/AdvReac Type Severity Reaction Status Date / Time amoxicillin [From AUGMENTIN] Allergy Severe Anaphylaxis Verified 03/17/24 10:16 clavulanic acid Allergy Severe Anaphylaxis Verified 03/17/24 10:16 [From AUGMENTIN] banana Allergy Unknown Unknown Verified 03/17/24 10:16 ketorolac [From Toradol] Allergy Unknown Anaphylaxis Verified 03/17/24 10:16 kiwi Allergy Unknown Unknown Verified 03/17/24 10:16 prochlorperazine Allergy Unknown INVOLUNTARY Verified 03/17/24 10:16 [From COMPAZINE] SPASMS [id number] Reductase Allergy Muscle Verified 05/01/24 07:18 Inhibitor cramps Active Medications: Current Medications Albuterol Sulfate (Albuterol Sulfate (0.083%) 2.5 Mg/3 Ml Vial.Neb) 2.5 mg INHALE ONCE PRN PRN Reason: Shortness of Breath/Wheezing Lactated Ringer's (Lr) 1,000 mls @ 100 mls/hr IVCONT .Q10H BALBINA Last Admin: 05/01/24 07:35 Dose: 100 mls/hr Home Medications ?Medication ?Instructions ?Recorded ?Confirmed ?Last Taken ?Type aspirin 81 mg tablet,delayed 81 mg PO DAILY 12/17/23 05/01/24 04/27/24 History release (Adult Aspirin Regimen) levothyroxine 100 mcg tablet 100 mcg PO DAILY 12/17/23 05/01/24 05/01/24 03:30 History Exam Height,Weight and Vital Signs: Height 5 ft 5 in Weight 65.771 kg Last Vital Signs Temp 98.7 F 05/01/24 07:20 Pulse 75 05/01/24 07:20 Resp 15 05/01/24 07:20 BP 158/107 H 05/01/24 07:20 Pulse Ox 98 05/01/24 07:20 O2 Del Method Room Air 05/01/24 07:20 Airway Mallampati Class: II TM Dist: >3cm Neck ROM: Full Denture: Upper and Lower Heart: RRR Lungs: CTA Assessment and Plan Assessment Anesthesia Assessment: Anesthesia Plan Discussed and Chart Reviewed Final Anesthetic Review Family History of Problems with Anesthesia: No History of Problems with Anesthesia: No NPO: Yes ASA Class: II Final Preanesthetic Review: Meds/Allgs Chart Reviewed, Consent Obtained/Reviewed and Anes Risks/Benef Reviewed Patient Risk: Intermediate Procedure Risk: Low Anesthetic Plan Anesthetic Plan: MAC: Disposition: Standard PACU
--- NOTE | 2024-05-01 09:24 | P.OPN-COLO_ITS ---
Colonoscopy Operative Note Operative Note Date of Service: 05/01/24 Narrative: Procedure: Upper endoscopy and colonoscopy Indication: Abd pain, change in bowel habits, unintentional weight loss, abnormal CT scan Endoscopist: Angelica Garg MD Anesthesia Provider: Narcisa Dumont MD Anesthesia type: MAC Instrument: [id number] and [id number] EGD Procedure:?? The procedure, indications, preparation and potential complications were reviewed with the patient, who indicated understanding and gave written informed consent to proceed. The endoscope was introduced through the mouth, and advanced to the proximal jejunum. The mucosa was carefully examined on slow withdrawal of the endoscope. The patient tolerated the procedure well. There were no immediate complications.? EGD Findings:? * Esophagus:? Normal esophageal mucosa was noted. The Z-line was at 36 cm and displaced by a small hiatal hernia with the diaphragmatic pinch at 40 cm. Cold forceps biopsies were taken from middle and lower esophagus to rule out eosinophilic esophagitis. * Stomach:?Erythema and erosions in the antrum. Retroflexion was performed in the cardia. Cold forceps biopsies were taken from the stomach as per [facility] protocol. * Duodenum:? Erythema and edema in the duodenum. Cold forceps biopsies were taken from the duodenal bulb and 2nd portion of the duodenum to rule out celiac sprue. * Jejunum: Normal jejunal mucosa to the extent examined. Cold forceps biopsies were taken due to finding of thickened small bowel wall the CTE. Colonoscopy Procedure:? The patient was then turned for the colonoscopy. A digital rectal exam was performed which was normal.? A distal attachment cap was affixed to the tip of the scope and the colonoscope was then inserted through the anus and advanced through the colon and advanced to the cecum at 75 cm and terminal ileum.? Appendiceal orifice and ileocecal valve were identified. Mucosa was carefully examined under high definition white light as the instrument was slowly withdrawn in a retrograde panoramic fashion. Retroflexion was performed in rectum. The procedure was not difficult. The quality of the prep was BBPS: 2+3+3 = adequate Withdrawal time 6 minutes Limitations: No limitations Findings: Mucosa: Normal colon and terminal ileum mucosa. Cold forceps biopsies were taken from the right and left side of the colon to rule out microscopic colitis. Protruding lesions: * Small internal hemorrhoids without stigmata of recent bleeding. Excavated lesions: * Mild diverticulosis of left colon. Impression: 1. Normal esophagus (biopsy) 2. Gastritis (biopsy) 3. Duodenitis (biopsy) 4. Normal jejunal mucosa (biopsy) 5. Normal colon and terminal ileum mucosa (biopsy) 6. Internal and external hemorrhoids 7. Diverticulosis Recommendations:?? * Follow-up path results * Start omeprazole 20 mg once daily * Treatment of H pylori if positive * If no chronic enteritis or colitis identified on biopsies, we will pursue repeat CT enterography versus video capsule endoscopy. * Repeat colonoscopy for CRC screening in 10 years.
[2024-05-01 09:31] VITALS: BP 148/95; PULSE 79; RESP 16; TEMP 36.2; O2SAT 99
[2024-05-01 09:46] VITALS: BP 152/102; PULSE 69; RESP 16; TEMP 36.2; O2SAT 100
== END 2024-05-01 10:16 | disposition home or self-care (01) ==
PROVIDERS: PCP Physician Assistant; Visit Provider Internal Medicine
PROC: (CPT 45380; principal; 2024-05-01 08:20)
DX: R19.4 Change in bowel habit (principal); Z80.0 Family history of malignant neoplasm of digestive organs; Z86.0101 Personal history of adenomatous and serrated colon polyps; K57.30 Diverticulosis of large intestine without perforation or abscess without bleeding; K64.8 Other hemorrhoids; K64.4 Residual hemorrhoidal skin tags; R10.9 Unspecified abdominal pain; G89.29 Other chronic pain; R10.11 Right upper quadrant pain; K29.50 Unspecified chronic gastritis without bleeding; K29.80 Duodenitis without bleeding; K44.9 Diaphragmatic hernia without obstruction or gangrene; R63.4 Abnormal weight loss; K86.1 Other chronic pancreatitis; K86.81 Exocrine pancreatic insufficiency; K58.9 Irritable bowel syndrome, unspecified; K21.9 Gastro-esophageal reflux disease without esophagitis; I10 Essential (primary) hypertension; E78.00 Pure hypercholesterolemia, unspecified; Q79.60 Ehlers-Danlos syndrome, unspecified; J44.9 Chronic obstructive pulmonary disease, unspecified; E06.3 Autoimmune thyroiditis; G62.9 Polyneuropathy, unspecified; Z79.82 Long term (current) use of aspirin; Z79.899 Other long term (current) drug therapy; Z88.1 Allergy status to other antibiotic agents; Z88.8 Allergy status to other drugs, medicaments and biological substances; Z87.891 Personal history of nicotine dependence; Z98.890 Other specified postprocedural states
CPT/HCPCS: 45380; 43239; 88305; 88313; 88342; J2003; J2704

== ENCOUNTER → 2024-05-01 06:50 | Outpatient (BNV) | payer OTHER, SELFPAY | PROVIDERS: PCP Physician Assistant; Visit Provider Internal Medicine | DX: K29.70 Gastritis, unspecified, without bleeding (principal); K29.80 Duodenitis without bleeding; R63.4 Abnormal weight loss; R19.4 Change in bowel habit; R93.3 Abnormal findings on diagnostic imaging of other parts of digestive tract; K57.30 Diverticulosis of large intestine without perforation or abscess without bleeding; K64.8 Other hemorrhoids | CPT/HCPCS: 43239; 45380 ==

== ENCOUNTER → 2024-05-06 07:08 | Outpatient (BNV) | payer OTHER, SELFPAY | PROVIDERS: PCP Physician Assistant; Visit Provider Radiology Diagnostic Radiology | DX: M67.813 Other specified disorders of tendon, right shoulder (principal) | CPT/HCPCS: 73221 ==

== ENCOUNTER 2024-05-06 07:18 | Outpatient (REF) | payer OTHER, SELFPAY ==
--- NOTE | ~2024-05-06 | MR_ITS ---
CLINICAL HISTORY: M75.41 - Impingement syndrome of right shoulder MR right shoulder without gadolinium Comparison: None Findings: No acute fracture. Intraosseous ganglia within the posterior humeral head spanning 20 mm. Moderate periarticular osteophyte formation at the acromioclavicular and glenohumeral joints, indicating osteoarthritis. Type II acromion. No joint effusion. Mild T2 signal elevation throughout the supraspinatus and infraspinatus tendons at the humeral insertion site extending to the musculotendinous junction, indicating tendinopathy. Supraspinatus, infraspinatus, subscapularis, and teres minor tendons are intact. No rotator cuff atrophy. No tears of the long head of biceps tendon. Diffuse degenerative fraying of the glenoid labrum. Superimposed undercutting and high T2 signal intensity within the posterosuperior labrum, consistent with tearing. IMPRESSION: 1. Supraspinatus and infraspinatus tendinopathy. No rotator cuff tear. 2. Acromioclavicular and glenohumeral joint osteoarthritis. 3. Glenoid labral tearing. This document has been electronically signed by: Epifanio Lamas MD on 05/06/2024 14:00:20
--- OUTSIDE RECORDS SUMMARY | 2024-05-06 07:20 | XMS_ITS | Data Portability ---
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 Received levaquin, bactrim, now winters d/c on visit with Urology continuing nitrofurantoin home BP measured 80/80 otherwise reports feeling improved after d/c winters and nitrofurantoin UCx 05/26 no growth VS af, manual BP 140/80s #Complicated UTI continue nitrofurantoin supportive care otherwise monitor for fever, chills, flank pain vkudesia Not available 05/29/2023 19:28:31 Plan of Treatment Reminders Order Date Submit Date Provider Last Modified By Organization Details Last Modified Time Details Appointments None recorded. Lab culture, urine 2023 024 [facility], [address] [place], [address], 4 18:18:26 urinalysis , dipstick 2023 024 [facility], [address] [place] [address], [phone], 19:05:08 Referral None recorded. Procedures None recorded. Surgeries None recorded. Imaging None recorded. Medication Orders Bactrim DS 800 mg-160 mg tablet 2023 024 [id number], [address] [place], [place], [phone], 15:19:21 Bactrim DS 800 mg-160 mg tablet 2023 Cedric watts [facility] #[id number], [address] [facility], [place], [phone], 15:19:12 Patient TargetsNo targets recorded. Patient InstructionsNo instructions recorded. Reason for Referral None Reported. Results Created Date Observation Date Name Description Value Unit Range Abnormal Flag Note LastModifiedBy Organization Detail LastModifiedTime 05/26/19 24 05/26/2023 URINE CULTU RE specimen description URINE Not Available [facility] [address] [place], [id number], 05/27/2023 18:18:25 05/26/19 24 05/26/2023 URINE CULTU RE special requests NONE Not Available [facility] [address] [place], [id number], 05/27/2023 18:18:25 05/26/19 24 05/27/2023 URINE CULTU RE culture NO GROWTH Not Available [facility] [address] [place], [id number], 05/27/2023 18:18:25 05/26/19 24 05/27/2023 URINE CULTU RE report status FINAL 2023 Not Available [facility] [address] [place], [id number], 05/27/2023 18:18:25 05/26/19 24 05/26/2023 urina lysis , dipst ick Leukocytes Positi ve Not Available [facility] - [facility] [address] [place], [address], 05/26/2023 19:03:44 05/26/19 24 05/26/2023 urina lysis , dipst ick Nitrite positi ve Not Available [facility] - [facility] [address] [place], [address], 05/26/2023 19:03:44 05/26/19 24 05/26/2023 urina lysis , dipst ick Urobilinogen negati ve Not Available [facility] - [facility] [address] [place] [address], [phone], 05/26/2023 19:03:44 05/26/19 24 05/26/2023 urina lysis , dipst ick Protein Positi ve Not Available [facility] - [facility] [address] [place] [address], [phone], 05/26/2023 19:03:44 05/26/19 24 05/26/2023 urina lysis , dipst ick pH 6.5 Not Available [facility] - [facility] [address] [place] [address], [phone], 05/26/2023 19:03:44 05/26/19 24 05/26/2023 urina lysis , dipst ick Blood Positi ve Not Available [facility] - [facility] [address] [place] [address], [phone], 05/26/2023 19:03:44 05/26/19 24 05/26/2023 urina lysis , dipst ick Specific Sidman 1.015 Not Available [facility] - [facility] [address] [place] [address], [phone], 05/26/2023 19:03:44 05/26/19 24 05/26/2023 urina lysis , dipst ick Ketone negati ve Not Available [facility] - [facility] [address] [place] [address], [phone], 05/26/2023 19:03:44 05/26/19 24 05/26/2023 urina lysis , dipst ick Bilirubin negati ve Not Available [facility] - [facility] [address] [place] [address], [phone], 05/26/2023 19:03:44 05/26/19 24 05/26/2023 urina lysis , dipst ick Glucose negati ve Not Available [facility] - [facility] [address] [place] [address], [phone], 05/26/2023 19:03:44 05/26/19 24 05/26/2023 urina lysis , dipst ick Appearance no sedime nts Not Available [facility] - [facility] [address] [place], [address], 05/26/2023 19:03:44 05/26/19 24 05/26/2023 urina lysis , dipst ick Color orange Not Available [facility] [address] [place], [address], 05/26/2023 19:03:44 Result Notes None recorded. Medical Equipment None Reported. Allergies Allergen ID Allergen Name Allergen Category Reaction Reaction Severity Criticality Documentation Date Start Date Code Code System Note Provider Name and Address Organization Details Recorded Time 5683 Compazine medicatio n Not available Not available Not available 02/26/202488142 6 RxNorm Not Available [facility] - production 03:49:35 Medications Name Sig Start Date Stop Date Status Note LastModified by Organization Details LastModified Time cyclobenzapr ine 10 mg tablet TAKE ONE TABLET BY MOUTH AT BEDTIME FOR 14 DAYS active Not Available Not Available No t Available nystatin 100,000 unit/mL oral suspension SWISH AND SWALLOW 4ML FOUR TIMES A DAY active Not Available Not Available No t Available senna 8.6 mg tablet TAKE TWO TABLETS BY MOUTH AT BEDTIME NEEDED FOR CONSTIPATIO N active Not Available Not Available No t Available sucralfate 100 mg/mL oral suspension TAKE 10ML BY MOUTH TWO TIMES A DAY active Not Available Not Available No t Available lisinopril 20 mg tablet TAKE ONE TABLET BY MOUTH EVERY DAY active Not Available Not Available No t Available simvastatin 10 mg tablet TAKE ONE TABLET BY MOUTH EVERY DAY active Not Available Not Available No t Available metronidazol e 500 mg tablet TAKE 1 TABLET BY MOUTH TWO TIMES A DAY active Not Available Not Available Not Available acetaminophe n 300 mg-codeine 30 mg tablet TAKE ONE TABLET BY MOUTH TWICE A DAY FOR 14 DAYS NEEDED FOR PAIN active Not Available Not Available No t Available amlodipine 5 mg tablet TAKE ONE TABLET BY MOUTH EVERY DAY active Not Available Not Available No t Available sulfamethoxa zole 800 mg-trimethop rim 160 mg tablet 1 tablet PO x1 now. active Not Available Not Available No t Available doxycycline monohydrate 100 mg tablet TAKE 1 TABLET BY MOUTH TWO TIMES A DAY active Not Available Not Available Not Available levothyroxin e 75 mcg tablet TAKE ONE TABLET BY MOUTH EVERY DAY active Not Available Not Available No t Available levothyroxin e 100 mcg tablet TAKE ONE TABLET BY MOUTH EVERY DAY DOSE REDUCED) active Not Available Not Available No t Available levothyroxin e 88 mcg tablet TAKE ONE TABLET BY MOUTH EVERY DAY active Not Available Not Available No t Available dicyclomine 20 mg tablet TAKE ONE TABLET BY MOUTH FOUR TIMES A DAY NEEDED FOR ABDOMINAL PAIN active Not Available Not Available No t Available phenazopyrid ine 100 mg tablet TAKE ONE TABLET BY MOUTH THREE TIMES A DAY FOR 6 DOSES active Not Available Not Available Not Available simvastatin 20 mg tablet TAKE ONE TABLET BY MOUTH EVERY DAY active Not Available Not Available No t Available lisinopril 10 mg tablet TAKE ONE TABLET BY MOUTH EVERY DAY active Not Available Not Available No t Available lorazepam 1 mg tablet TAKE ONE TABLET BY MOUTH ONCE A DAY IF NEEDED FOR ANXIETY FOR 7 DAYS active Not Available Not Available No t Available cefuroxime axetil 500 mg tablet TAKE 1 TABLET BY MOUTH TWO TIMES A DAY active Not Available Not Available Not Available levofloxacin 500 mg tablet TAKE ONE TABLET BY MOUTH EVERY DAY FOR 7 DAYS active Not Available Not Available No t Available cholecalcife rol (vitamin D3) 125 mcg (5,000 unit) capsule TAKE ONE CAPSULE BY MOUTH EVERY DAY active Not Available Not Available No t Available levothyroxin e 112 mcg tablet TAKE ONE TABLET BY MOUTH EVERY DAY active Not Available Not Available No t Available nitrofuranto in monohydrate/ macrocrystal s 100 mg capsule active Not Available Not Available Not Available Xifaxan 550 mg tablet TAKE ONE TABLET BY MOUTH THREE TIMES A DAY FOR 14 DAYS active Not Available Not Available Not Available Paxlovid 300 mg (150 mg x 2)-100 mg tablets in a dose pack TAKE THREE TABLETS BY MOUTH TWICE A DAY DIRECTED ON PACKAGE FOR 5 DAYS active Not Available Not Available No t Available Vitals Date Recorded Respiratory rate Heart rate Body height Body temperature Oxygen saturation Oxygen saturation in Arterial blood by Pulse oximetry Body weight Systolic blood pressure Diastolic blood pressure Provider Name and Address Organization Details Last Updated DateTime 4 16 /min 95 /min 165.1 cm 98.8 [degF] 98 % 98 % 97455.9 6 g 155 mm[Hg] 106 mm[Hg] Not Available [facility] production 4 15:16:10 Date Recorded Body temperature Respiratory rate Oxygen saturation Oxygen saturation in Arterial blood by Pulse oximetry Heart rate Systolic blood pressure Diastolic blood pressure Provider Name and Address Organization Details Last Updated DateTime 4 98.9 [degF] 16 /min 100 % 100 % 78 /min 138 mm[Hg] 88 mm[Hg] Not Available [facility] 4 19:08:41 Social History None recorded. Functional Status None recorded. Mental Status None recorded. Family History Nothing Reported. Medical History No medical history recorded. Gynecological HistoryNo gynecological history recorded. Obstetrics History GPAL:G 0 P 0 0 0 0 Past Encounters Encounter ID Performer Location Encounter Start Date Encounter Closed Date Diagnosis/Indication Diagnosis SNOMED-CT Code Diagnosis ICD10 Code Diagnosis Note [id number] NIKITA NIXON MD [facility] [address] [place] [phone] 05/26/2023 15:16:02 05/27/2023 15:30:59 Urinary symptoms 711072633 R39.9 Evaluation in the field was performed by my collar folder operator colleague, as noted above, I provided real-time direction and supervisio n for this visit. The evaluation revealed 53 yo female , recently discharge from the hospital where she was treated for perirectal abscess and UTI with urinary retention requiring a winters . Pt was discharge with winters and has f/u with urology on 06/07 and levaquin 500 mg for her UTI. Reports ongoing symptoms including suprapubic pain, flank pain, low fevers (100.2). Has been drinking plenty of fluids with good UOP ( report that has been removing the bag and connecting it at night only. Current bag has been on since last night. Reports irritation and would like the winters to be removed. Denies bladder spasm and reports that while in the hospital was given Ditropan and she had an allergic reaction .Ua +NOEMÍ, +NIT, +PRO, +BLO. Impression :UTI Plan:Urine culture collected. Will follow resultsUnf ortunately I do not have acces to her urine culture results at [facility].P t is allergic at Augmentin ( reports tongue swelling and throat closing ) , so I don't feel comfortabl e giving Ceftriaxon e IV . Will start bactrim BID x7 days ( first dose given by collar folder operator ). D/C levaquin ( usual dose for UTI is 750 mg and pt was treated with 500 mg daily )Pt advised to increase fluid intakeSpok e at length re necessity of keeping the winters and f/u with urology for most likely voiding trial. Primary care, consider__ _ Dispositio n: We discussed the diagnostic uncertaint y of home visits and the risk associated with this. In this case, the patient and I felt this to be an acceptable and reasonable amount of risk given the benefit of avoiding an ED visit. We discussed the need to seek care urgently/e mergently in the setting of any new or worsening serious symptoms, particular ly ongoing fever, chills, nausea, vomiting, worsening CVA tenderness or any other concerns. [id number] Stacy June MD [facility] - [facility] [address] [place] [phone] 05/29/2023 19:08:38 05/29/2023 21:40:20 Acute urinary tract infection [id number] N39.0 Health Concerns Section Related Observation LastModified by Organization Detai ls LastModified Time None Recorded Concern Status LastModified by Organization Details LastModified Time None Recorded Advance Directives Directive None Recorded Payers Encounter Date Sequence Insurance Name Policy Number Policy Chan Covered Member ID Chan Member ID Guarantor Name 05/26/2023 1 [facility] - DOS ON OR AFTER 2022 - DUAL ELIGIBLE - SNF OPTIONS AND ONE CARE (MEDICARE REPLACEMENT/ADV ANTAGE - HMO) Basilia Sawyer [id number] Basilia Sawyer 05/29/2023 1 [facility] - DOS ON OR AFTER 2022 - DUAL ELIGIBLE - SNF OPTIONS AND ONE CARE (MEDICARE REPLACEMENT/ADV ANTAGE - HMO) Basilia Sawyer [id number] Basilia Sawyer Notes Date Note Type Note Provider Name and Address Organization Details Recorded Time 05/26/2023 text/html HPI: Can you remove a Winters catheter ? A catheter was put in May 18 in the emergency room. I? ve now been on antibiotics for 4 days and I? m not getting better and I want this catheter removed.?? ...................... ...................... ...................... ...................... ...................... ...................... ......... [facility] Nurse Triage Notes (Garrett Dias): Chief Complaints: UTI/Pyelonephritis Allergies: Unknown Comments: Outreach call to the member to obtain additional informational - Member was recently hospitalized due to a bowel obstruction - Winters was placed - Since then the member was dx with a UTI on and the member was advised to follow up with urology on 06/07 - Member is taking Levofloxacin 500 mg once a day - Member reports s/s are worse and looking for support. Low grade fever - left flank pain - Wellness check requested - ...................... ...................... ...................... ...................... ...................... ...................... ......... Cord Splicer Note From Arsalan Rosenbaum: Pt reports winters placed at [facility] on 05/18. Since returning home the pt has been intermittently d/c the collection bag then reattaching it. There seems to have been some type of miscommunication in the d/c instructions. Pt has urology f/u on 06/07. Pt was started on levaquin last Sunday for UTI sx which are not improving. Pt c/o suprapubic pain, flank pain, low fevers (100.2). Pt is alert, NAD. Slightly hypertensive, VS otherwise stable. Afebrile (took 1 g Tylenol two hours ago). Non focal neuro exam. Normal gait. Lungs CTA. Benign ABD exam. Left sided CVA tenderness. No LE edema. UA: +NOEMÍ, +NIT, +PRO, +BLO. UC sent to [facility]. Pt treated with bactrim DS. Pt thoroughly educated on catheter care and s/sx that would indicate the ED. Pt to f/u with urology on Sunday. ...................... ...................... ...................... ...................... ...................... ...................... ......... Disposition: Sharon NIXON MD [address] [place] [address],[address], [place], [phone], [facility] - [facility] 05/26/2023 19:05:44 05/29/2023 text/html [facility] Nurse Triage Notes (Garrett Dias): Reason For Request: Pt is reporting issues lately with low blood pressure>just getting over a UTI and states not feeling right>pulse is going from high to normal>lowest top number reading was 72/73 pulse at 83, which was taken at 5pm BP at 5:20pm 106/66 Chief Complaints: Syncope/Dizziness/Ligh theadedness Allergies: Compazine Comments: Active Directory Specialist verified the member's name//address and phone number - Education provided on the response time and the member was advised to monitor reported s/s and seek emergency treatment if needed. Member reports B/P fluctuations - Reports hypotension - Last B/P was 106/66 - previously was in the 70's? Dizziness with palpitations at times - SOB- I don't feel right. Low grade fever - Nausea - Recent UTI - Cath removed yesterday. Kyra June MD [address], [place], [phone], [facility] - [facility] 05/29/2023 19:28:59 OBGyn Episode No OBEpisode recorded.
== END 2024-05-06 07:19 | disposition home or self-care (01) ==
LOC: HO.MRI 07:18
PROVIDERS: PCP Physician Assistant; Visit Provider Physician Assistant
DX: M75.41 Impingement syndrome of right shoulder (principal)
CPT/HCPCS: 73221

== ENCOUNTER 2024-05-13 11:14 | Outpatient (AMB) | payer OTHER, SELFPAY ==
--- NOTE | 2024-05-13 11:32 | MHC.OFFVIS ---
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 She states she has a big vein behind her right knee. Patient walks about 5-8 miles a day and noticed swelling after walking. 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 The patient continues with swelling of the vein, particularly when she is standing or walking for lengthy periods of time. She denies any swelling of her lower extremities as well as pain of her lower extremities. She does state that the swelling can get up to the size of a golf ball. She has been wearing compression leggings, stating that the compression stockings do not come up high enough. She states the compression leggings have been working well. Complaints include pain over varicosity and swelling of the varicosity/vein. It has been affecting their daily activities including walking, standing, and work. It is noted more so in left leg. She is a former smoker, quit over 3 years ago. She is nondiabetic. Patient denies any previous venous surgery or injections. Patient denies any history of DVT/ PE. There is a significant family history of blood clots; her mother had blood clots and 2 of her daughters have blood clots, with multiple procedures to remove them. One daughter had to have an artery removed in her upper arm due to blood clots and 1 daughter had to have multiple procedures in her lower legs. The patient was not aware of any blood clotting deficiencies and has not been tested for any at this point. Patient denies any history of phlebitis. Trial of compression includes - compression leggings They now present for vascular evaluation regarding their varicose veins. [facility] Medical History Neha-Danlos syndrome Neuropathy Thrombophlebitis of left leg Rectocele Elevated cholesterol History of cervical cancer Family history of colon cancer Nicotine dependence, cigarettes, uncomplicated HTN (hypertension) Family history of pancreatic cancer COPD (chronic obstructive pulmonary disease) Dysphagia Vitamin D deficiency Hypothyroidism (~1999) Surgical History History of loop electrical excision procedure (LEEP) History of endometrial ablation History of tonsillectomy (~1976) History of History of throat surgery (~2011) Family History Mother Alzheimer's dementia CVD (cardiovascular disease) Maternal Grandfather Pancreatic cancer Social History Household Members: Children Household Members Other:: lives at home with 20-year-old daughter Housing: Apartment Do you presently have visiting nurse or other home services: No Alcohol intake: never Comment: vaginal area Patient Tobacco Use Status: Former Tobacco user Tobacco use type: Cigarette Cigarette Packs Per Day: 0.5 Cigarettes Per Day: 5 Years Smoked: (onset 11, 1ppd x 40yrs, now 1/4ppd, 40pyh) e-Cigarette/Vaping Use: Never Used Second Hand Smoke Exposure: Yes Substance Use Type: Marijuana Advance Directives Date on File: 09/11/22 service: No Current occupational status: disabled Cognitive needs: No Hearing needs: No Vision needs: No Female Reproductive History Menstrual Age of Menarche: 11 Review of Systems Const Reports as per HPI and Denies weakness ENT Reports Normal hearing present and Denies dizziness Card Reports as per HPI, Denies chest pain, Denies chest pain at rest, Denies chest pain with activity, Denies dyspnea and Denies dyspnea on exertion Resp Reports as per HPI, Denies cough, Denies dyspnea and Denies dyspnea on exertion GI Reports as per HPI, Denies abdominal pain, Denies nausea and Denies vomiting Musc Denies numbness Skin/Breast Reports as per HPI, Denies erythema and Denies wounds Neuro Reports Normal hearing present, Denies dizziness, Denies numbness, Denies Sensory deficit (Neuro) and Denies weakness Psych Reports no additional complaints Endo Reports no additional complaints Physical Exam Const General: healthy appearing and no acute distress Orientation/consciousness: patient oriented x3 HEENT Head: Yes normal to inspection Ears: hearing grossly normal bilaterally Mouth: Normal oral and palatal mucosa present Resp Effort & Inspection: normal respiratory effort and able to speak in complete sentences Auscultation: clear to auscultation bilaterally Cardio Jugular venous distension: no JVD Rate: regular rate Rhythm: regular rhythm Heart sounds: S1 normal heart sound present and S2 normal heart sound present Bruits: no abdominal aortic bruits, no carotid bruits, no femoral bruits and no renal bruits Peripheral pulses: Peripheral pulses 2+ throughout GI Inspection: Yes normal to inspection Palpation (GI): No Abdominal aortic bruit present Skin General skin exam: no rashes or lesions noted Wounds: no wounds Hair: normal Neuro General: patient oriented x3 Cranial nerves: Yes Normal hearing present Cognition (Neuro): normal cognition Gait exam (Neuro): Normal gait present Motor exam (neuro): 5/5 motor strength present throughout Sensory Exam: No Sensory deficit (Neuro) Extrem Other: Posterior left knee: Small, circular (appx 5mm) ball felt at the lateral aspect of the back of the knee, in the lateral superficial vein. Not painful to palpation. No lower extremity swelling noted. No discoloration noted. Palpable DP pulses. General: Yes normal to inspection, Yes full ROM, Yes capillary refill normal and Yes normal gait Assessment & Plan Assessment & Plan (1) Thrombophlebitis: Code(s): I80.9 - Phlebitis and thrombophlebitis of unspecified site Category: Medical Plan: Basilia is presenting today as a referral from her PCP for ongoing thrombosis of a vein in the posterior aspect of her left knee. She does continue to endorse swelling of that vein whenever she is walking a lot or standing, both for more than an hour. She states it does go down after sitting for 20-30 minutes and does not return. She does continue to wear compression leggings daily due to this compression stockings not going above the site of the thrombosis. The patient has had venous duplex ultrasound performed in October; however, due to the ongoing concerns and complaints we will order a venous insufficiency ultrasound. In short, the patient has evidence of venous insufficiency. I have discussed the pathophysiology with the patient. I have taken the liberty of ordering venous insufficiency testing with the patient. They will follow up with me after testing. The patient had an opportunity to ask questions regarding the treatment plan. All questions were answered. Imaging studies, laboratory studies and physical exam results were discussed and reviewed in detail. No major barriers to understanding were identified. The patient expressed understanding and agreement with the above treatment plan. The patient is aware they should contact our office by phone for worsening of the current condition or the appearance of new symptoms. Thank you for allowing me to participate in the vascular care of this patient. If you have any questions or concerns regarding the treatment for the above condition please do not hesitate to contact me. The office telephone contact is [phone]. This note is constructed using voice recognition software. While every effort has been made to ensure accuracy, vacuum filter operator errors may have been included. Thank you for allowing me to participate in the care of your patient. Yours sincerely, GILES Jc Orders: Orders US venous duplex LE BI 1 Week I80.9 - Phlebitis and thrombophlebitis of unspecified site Coding Level of Care Code New Pt Level 4 (20976) Diagnoses Thrombophlebitis I80.9
== END 2024-05-13 11:51 | disposition home or self-care (01) ==
PROVIDERS: PCP Physician Assistant; Visit Provider Physician Assistant Surgical
DX: I80.9 Phlebitis and thrombophlebitis of unspecified site (principal)
CPT/HCPCS: 99204

== ENCOUNTER 2024-05-13 12:11 | Outpatient (REF) | payer OTHER, SELFPAY ==
[2024-05-13 13:31] LABS: Creatinine, mg/dL 38.58
[2024-05-13 14:05] LABS: Creatinine, 24Hr Urine 0.8 G/Day (1.0-2.0); Total Volume 24 Hour Urine 2200 mL
[2024-05-16 20:13] LABS: Metanephrine, Free 24U 79 mcg/24 h (90-315); Normetanephrine, Free 24U 99 mcg/24 h (122-676); Total Metanephrine, Free 24U 178 mcg/24 h (224-832); Total Volume 24U 2200 mL
[2024-05-23 15:58] LABS: Cortisol Free, 24 Hr Urine 44.7 mcg/24 h (4.0-50.0); Total Volume, 24 Hr Urine 2200 mL
== END 2024-05-13 12:12 | disposition home or self-care (01) ==
LOC: HO.LNP 12:11
PROVIDERS: Visit Provider Internal Medicine
DX: I10 Essential (primary) hypertension (principal); I80.9 Phlebitis and thrombophlebitis of unspecified site
CPT/HCPCS: 82530; 82570; 83835; 99202

== ENCOUNTER 2024-06-12 07:48 | Outpatient (REF) | payer OTHER, SELFPAY ==
--- OUTSIDE RECORDS SUMMARY | 2024-06-12 07:50 | XMS_ITS | Data Portability ---
Author Organization [employer] [facility] [place] - [facility] Address [address] [place] [id number] Care Team Providers Care Copyist Name Role Phone [facility] Referring Provider Assessment Encounter Date Assessment Date Assessment LastModified [...] None recorded. Lab culture, urine 2023 024 [place] [facility], [address] [place], [address], 4 18:18:26 urinalysis , dipstick [address] [facility], [address] [place] [address], [phone], 19:05:08 Referral None recorded. Procedures None recorded. Surgeries None recorded. Imaging None recorded. Medication Orders Bactrim DS 800 mg-160 mg tablet 2023 024 [id number], [address], [place], [phone], 15:19:21 Bactrim DS 800 mg-160 mg tablet 2023 [id number], [address] [facility], [place], [phone], 15:19:12 Patient TargetsNo targets recorded. Patient InstructionsNo instructions recorded. Reason for Referral None Reported. Results Created Date Observation Date Name Description Value Unit Range Abnormal Flag Note LastModifiedBy Organization Detail LastModifiedTime 05/26/19 24 05/26/2023 URINE CULTU RE specimen description URINE Not Available [facility] [address] [place], [id number], 05/27/2023 18:18:25 05/26/19 24 05/26/2023 URINE CULTU RE special requests NONE Not Available [facility] [address] [place], [id number], 05/27/2023 18:18:25 05/26/19 24 05/27/2023 URINE CULTU RE culture NO GROWTH Not Available [facility] [address] [place], [id number], 05/27/2023 18:18:25 05/26/19 24 05/27/2023 URINE CULTU RE report status FINAL 2023 Not Available [facility] [address] [place], [id number], 05/27/2023 18:18:25 05/26/19 24 05/26/2023 urina lysis , dipst ick Leukocytes Positi ve Not Available [facility] [address] [place], [phone], 05/26/2023 19:03:44 05/26/19 24 05/26/2023 urina lysis , dipst ick Nitrite positi ve Not Available [facility] [address] [place], [address], 05/26/2023 19:03:44 05/26/19 24 05/26/2023 urina lysis , dipst ick Urobilinogen negati ve Not Available [facility] - [facility] [address] [place] [address], [phone], 05/26/2023 19:03:44 05/26/19 24 05/26/2023 urina lysis , dipst ick Protein Positi ve Not Available [facility] - [facility] [address] [place] [address], [phone], 05/26/2023 19:03:44 05/26/19 24 05/26/2023 urina lysis , dipst ick pH 6.5 Not Available [facility] - [facility] [address] [place] [address], [phone], 05/26/2023 19:03:44 05/26/19 24 05/26/2023 urina lysis , dipst ick Blood Positi ve Not Available [facility] - [facility] [address] [place] [address], [phone], 05/26/2023 19:03:44 05/26/19 24 05/26/2023 urina lysis , dipst ick Specific [place] 1.015 Not Available [facility] - [facility] [address] [place] [address], [phone], 05/26/2023 19:03:44 05/26/19 24 05/26/2023 urina lysis , dipst ick Ketone negati ve Not Available [facility] - [facility] [address] [place] [address], [phone], 05/26/2023 19:03:44 05/26/19 24 05/26/2023 urina lysis , dipst ick Bilirubin negati ve Not Available [facility] - [facility] [address] [place] [address], [phone], 05/26/2023 19:03:44 05/26/19 24 05/26/2023 urina lysis , dipst ick Glucose negati ve Not Available [facility] - [facility] [address] [place] [address], [phone], 05/26/2023 19:03:44 05/26/19 24 05/26/2023 urina lysis , dipst ick Appearance no sedime nts Not Available [facility] - [facility] [address] [place], [address], 05/26/2023 19:03:44 05/26/19 24 05/26/2023 urina lysis , dipst ick Color orange Not Available [facility] [address] [place], [address], 05/26/2023 19:03:44 Result Notes None recorded. Medical Equipment None Reported. Allergies Allergen ID Allergen Name Allergen Category Reaction Reaction Severity Criticality Documentation Date Start Date Code Code System Note Provider Name and Address Organization Details Recorded Time 2171 Compazine medicatio n Not available Not available Not available 02/26/202482246 6 RxNorm Not Available [facility] - production [...] cm 98.8 [degF] 98 % 98 % 87027.9 6 g 155 mm[Hg] 106 mm[Hg] Not [...] SNOMED-CT Code Diagnosis ICD10 Code Diagnosis Note [id number] NIKITA NIXON MD [facility] - [facility] [address] [place] [phone] 05/26/2023 15:16:02 05/27/2023 15:30:59 Urinary symptoms [id number] R39.9 Evaluation in the field was performed by my financial services director colleague, as noted above, I provided real-time [...] acces to her urine culture results at [facility].P t is allergic at Augmentin ( reports tongue swelling and throat closing ) , so I don't feel comfortabl e giving Ceftriaxon e IV . Will start bactrim BID x7 days ( first dose given by financial services director ). D/C levaquin ( usual dose for [...] worsening CVA tenderness or any other concerns. [id number] Stacy June MD Main - [facility] [address] [place] [phone] 05/29/2023 19:08:38 05/29/2023 21:40:20 Acute urinary tract infection [id number] N39.0 Health Concerns Section Related Observation LastModified by Organization Detai ls LastModified Time None Recorded Concern Status LastModified by Organization Details LastModified Time None Recorded Advance Directives Directive None Recorded Payers Encounter Date Sequence Insurance Name Policy Number Policy Chan Covered Member ID Chan Member ID Guarantor Name 05/26/2023 1 [facility] - DOS ON OR AFTER 2022 - DUAL ELIGIBLE - CUSTODIAL OPTIONS AND ONE CARE (MEDICARE REPLACEMENT/ADV ANTAGE - HMO) Basilia Sawyer [id number] Basilia Sawyer 05/29/2023 1 [facility] - DOS ON OR AFTER 2022 - DUAL ELIGIBLE - CUSTODIAL OPTIONS AND ONE CARE (MEDICARE REPLACEMENT/ADV ANTAGE - HMO) Basilia Sawyer [id number] Basilia Sawyer Notes Date Note Type Note [...] ...................... ...................... ...................... ...................... ...................... ...................... ......... Hospitalist Medical Director Note From Arsalan Rosenbaum: Pt reports winters placed at [facility] on 05/18. Since returning home the pt [...] +NOEMÍ, +NIT, +PRO, +BLO. UC sent to [facility]. Pt treated with bactrim DS. Pt thoroughly educated on catheter care and s/sx that would indicate the ED. Pt to f/u with urology on Sunday. ...................... ...................... ...................... ...................... ...................... ...................... ......... Disposition: Sharon NIXON MD [address] [place] [address],[address], [place], [phone], [employer] 05/26/2023 19:05:44 05/29/2023 text/html [facility] Nurse Triage Notes (Garrett Dias): Reason For Request: Pt is reporting issues lately with low blood pressure>just getting over a UTI and states not feeling right>pulse is going from high to normal>lowest top number reading was 72/73 pulse at 83, which was taken at 5pm BP at 5:20pm 106/66 Chief Complaints: Syncope/Dizziness/Ligh theadedness Allergies: Compazine Comments: [employer] verified the member's name//address and phone number [...] Cath removed yesterday. Kyra June MD [address] [facility],[address], [place], [phone], [employer] 05/29/2023 19:28:59 OBGyn Episode No OBEpisode recorded.
[2024-06-12 10:39] LABS: Alanine Aminotransferase 27 U/L (0-31); Albumin Level 4.4 g/dL (3.5-5.0); Alkaline Phosphatase 42 U/L (39-117); Anion Gap 13 (12-20); Aspartate Amino Transferase 20 U/L (5-31); Bilirubin Total 0.3 mg/dL (0.0-1.0); Blood Urea Nitrogen 10 mg/dL (9-16); Calcium 9.7 mg/dL (8.4-10.2); Carbon Dioxide 28 mmol/L (22-29); Chloride 100 mmol/L (96-108); Cholesterol 286 mg/dL (<200); Estimated Glomerular Filt Rate > 60; Glucose Fasting 94 mg/dL (60-99); HDL Cholesterol 47 mg/dL (>40); LDL Cholesterol Calculated 188 mg/dL (<100); Potassium 4.5 mmol/L (3.3-5.1); Sodium 136 mmol/L (135-145); Total Protein 7.7 g/dL (6.5-8.0); Triglycerides 255 mg/dL (<150)
[2024-06-12 10:59] LABS: TSH reflex Free T4 0.14 uIU/mL (0.32-4.0)
[2024-06-12 11:38] LABS: Free T4 (Free Thyroxine) 1.37 ng/dL (0.71-1.85)
== END 2024-06-12 07:49 | disposition home or self-care (01) ==
LOC: HO.LAB 07:48
PROVIDERS: PCP Physician Assistant; Visit Provider Physician Assistant
DX: E78.00 Pure hypercholesterolemia, unspecified (principal); E03.8 Other specified hypothyroidism; E06.3 Autoimmune thyroiditis; I10 Essential (primary) hypertension
CPT/HCPCS: 36415; 80053; 80061; 84439; 84443

== ENCOUNTER 2024-06-17 13:43 | Outpatient (AMB) | payer OTHER, SELFPAY ==
[2024-06-17 13:48] VITALS: BP 132/82; PULSE 96; TEMP 523.8; TEMP 975; O2SAT 97; BMI 24.0
--- NOTE | 2024-06-17 13:48 | A.OFFPC_ITS ---
Vital Signs 06/17/24 13:48 Height 5 ft 5 in Weight 144 lb 4 oz BMI 24.0 BP 132/82 Blood Pressure Location Lt brachial Position Sitting Pulse 96 Pulse Source Pulse Oximeter Temp 975 F H Temp Source Temporal Artery Scan Pulse Oximetry (%) 97 Oxygen Delivery Method Room Air Intake Visit Reasons: 3 month f/u Publishing Specialist Required: No Accompanied by: Self / Same As Patient Allergies amoxicillin [From AUGMENTIN] Allergy (Severe, Verified 06/17/24 14:19) Anaphylaxis clavulanic acid [From AUGMENTIN] Allergy (Severe, Verified 06/17/24 14:19) Anaphylaxis banana Allergy (Unknown, Verified 06/17/24 14:19) Unknown ketorolac [From Toradol] Allergy (Unknown, Verified 06/17/24 14:19) Anaphylaxis kiwi Allergy (Unknown, Verified 06/17/24 14:19) Unknown prochlorperazine [From COMPAZINE] Allergy (Unknown, Verified 06/17/24 14:19) INVOLUNTARY SPASMS Qoghlol-EJE-OoX Reductase Inhibitor Allergy (Verified 06/17/24 14:19) Muscle cramps Medication List - Last Reconciled 06/17/24 by Leonardo Perez PA-C acetaminophen-codeine 300-30 mg 1 tab PO Q8H PRN 7 days aspirin (Adult Aspirin Regimen) 81 mg PO DAILY levothyroxine 100 mcg PO DAILY lisinopril 20 mg PO DAILY 90 days miscellaneous medical supply (Blood Pressure Cuff) As directed Tobacco use date assessed: 06/17/24 Dental Screening Dental Screen Date: 06/17/24 Did you have a dental visit in the last 12 months?: Yes Was dental information given to patient?: Patient has dentist HPI 3 month f/u HPI Details Patient is a 54-year-old female here today for a follow-up visit. Patient's past medical history significant for hypertension, hyperlipidemia, Billy's hypothyroidism generalized anxiety disorder. .. Hyperlipidemia: Most recent labs showing very elevated total cholesterol and LDL. She has been tried on statin therapy though had side effects that were intolerable. She reports she feels much better now being off of statin therapy. Her cholesterol issues may be related to her Billy's thyroid condition .. Hypothyroidism: Most recent TSH low. She continues on levothyroxine 100 mcg tablets use for hypo versus hyper thyroidism symptoms. She is now seeing an lcac radar operator/navigator at [facility]. She is concerned she continues to have a thyroid issues. She is considering a total thyroidectomy . . Thrombophlebitis: Has followed up [facility] vascular specialty and will be getting a more in-depth ultrasound of lower extremity as she has a fairly large superficial clot in the lower extremity. .. Hypertension: Patient's blood pressure acceptable today in office. Patient continues on lisinopril 20 mg. .. COPD: Is a former smoker though has not had any pulmonary compromise. Does not use any inhalers as does not have any active wheezing or shortness for breath. She continues to try to stay fairly active and walks on a daily basis. .. Right shoulder labral tear: Currently in physical therapy, also has a rotator cuff tendinopathy. She believes physical therapy somewhat helpful though continues to have decreased range of motion and strength. She does have a connective tissue disease as well. She has been using Tylenol No. 3 for her pain relief with good effect. Laboratory Tests 05/01/23 03/10/24 05/01/24 12:26 09:47 06:48 AST 45 H ALT 70 H Cholesterol 296 H 347 H LDL Cholesterol, C alc 240 H TSH 1.32 U Free Metanephrin e 05/12/24 06/12/24 05:30 08:52 AST 20 ALT 27 Cholesterol 286 H LDL Cholesterol, C alc 188 H TSH 0.14 L U Free Metanephrin e 79 L PFSH Medical History Neha-Danlos syndrome Neuropathy Thrombophlebitis of left leg Rectocele Elevated cholesterol History of cervical cancer Family history of colon cancer Nicotine dependence, cigarettes, uncomplicated HTN (hypertension) Family history of pancreatic cancer COPD (chronic obstructive pulmonary disease) Dysphagia Vitamin D deficiency Hypothyroidism (~1999) Surgical History History of loop electrical excision procedure (LEEP) History of endometrial ablation History of tonsillectomy (~1976) History of History of throat surgery (~2011) Family History Mother Alzheimer's dementia CVD (cardiovascular disease) Maternal Grandfather Pancreatic cancer Social History Household Members: Children Household Members Other:: lives at home with 20-year-old daughter Housing: Apartment Do you presently have visiting nurse or other home services: No Alcohol intake: never Comment: vaginal area Patient Tobacco Use Status: Former Tobacco user Tobacco use type: Cigarette Cigarette Packs Per Day: 0.5 Cigarettes Per Day: 5 Years Smoked: (onset 11, 1ppd x 40yrs, now 1/4ppd, 40pyh) e-Cigarette/Vaping Use: Never Used Second Hand Smoke Exposure: Yes Substance Use Type: Marijuana Advance Directives Date on File: 09/11/22 service: No Current occupational status: disabled Cognitive needs: No Hearing needs: No Vision needs: No Female Reproductive History Menstrual Age of Menarche: 11 Questionnaire PHQ-9 Over the last 2 weeks, how often have you been bothered by any of the following problems? 1. Little interest or pleasure in doing things: not at all 2. Feeling down, depressed, or hopeless: not at all 3. Trouble falling or staying asleep, or sleeping too much: not at all 4. Feeling tired or having little energy: not at all 5. Poor appetite or overeating: not at all 6. Feeling bad about yourself - or that you are a failure or have let yourself or your family down: not at all 7. Trouble concentrating on things, such as reading the newspaper or watching television: not at all 8. Moving or speaking so slowly that other people could have noticed. Or the opposite - being so fidgety or restless that you have been moving around a lot more than usual: not at all 9. Thoughts that you would be better off or of hurting yourself in some way: not at all Total score: 0 Depression Screening Interpretation: Negative Depression Screening Done: Yes 28413 - PHQ-9 Billing: Yes Source: Developed by Drs. Dirk Davis, Beatrice Echols, Mike Estrada and colleagues, with an educational job from [employer]. Thrive Questionnaire Date Thrive assessed: 06/17/24 I am a: Patient What is your living situation today?: I have a steady place to live Within the past 12 months, did the food you bought not last and you didn't have the money to get more?: Never true Within the past 12 months, did you worry whether your food would run out before you got money to buy more?: Never true Do you have trouble paying for medicines?: No Do you have trouble getting transportation to medical appointments?: No Do you have trouble paying your heating and electricity bill?: No Do you have trouble taking care of your child, family member or friend?: No Do you have trouble with day-to-day activities such as bathing, preparing meals, shopping, managing finances, etc.?: No Are you currently unemployed and looking for a job?: No Are you interested in more education?: No Please select the resources that you would like help with: None Currently or been in a relationship where the following occur: No concerns reported THRIVE Score: 0 AUDIT C Alcohol Use Questionnaire (AUDIT-C) 1. How often do you have a drink containing alcohol?: Never 3. How often do you have six or more drinks on one occasion?: Never Total Score: 0 STONE-7 AMB Questionnaire STONE-7 Date STONE - 7 assessed: 06/17/24 Feeling nervous, anxious, or on edge: 0 = Not at all Not being able to stop or control worryin = Not at all Worrying too much about different things: 0 = Not at all Trouble relaxin = Not at all Being so restless that it is hard to sit still: 0 = Not at all Becoming easily annoyed or irritable: 0 = Not at all Feeling afraid as if something awful might happen: 0 = Not at all Total STONE-7 score (0-4 normal; 5-9 mild; 10-14 moderate; 15-21 severe): 0 Source: Developed by Drs. Dirk Davis, Beatrice Echols, Mike Estrada and colleagues, with an educational job from [employer]. STONE-7 Assessment Billing STONE-7 Assessment Tool: STONE-7 Assessment 95908 Physical exam (Primary Care) Vital Signs: Last Vital Signs Temp 975 F H 06/17/24 13:48 Pulse 96 06/17/24 13:48 BP 132/82 06/17/24 13:48 Pulse Ox 97 06/17/24 13:48 Oxygen Delivery Method Room Air 06/17/24 13:48 BMI result Body Mass Index 24.0 Tobacco/Smoking Status: Tobacco use Status Tobacco use date assessed 06/17/24 06/17/24 14:06 Patient Tobacco Use Status Former Tobacco user 06/17/24 13:56 Tobacco use type Cigarette 06/17/24 13:56 e-Cigarette/Vaping Use Never Used 06/17/24 13:56 PHQ-9: PHQ-9 Score PHQ-9: Total score 0 06/17/24 14:15 Depression Screening Interpretation: Negative Thrive Assessment: Date of Thrive Assessment Date Thrive assessed 06/17/24 06/17/24 13:56 Currently or been in a relationship where the following occur: No concerns reported Coding Level of Care Code Est Pt Level 4 (56995) Diagnoses Primary hypertension I10 Hypertension type: primary hypertension 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; E06.3 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 Mixed hyperlipidemia E78.2 Hyperlipidemia type: mixed hyperlipidemia Chronic obstructive pulmonary disease, unspecified COPD type J44.9 COPD type: unspecified COPD MDD (major depressive disorder), recurrent episode, moderate F33.1 Rotator cuff impingement syndrome of right shoulder M75.41 Additional Codes STONE-7 Assessment Billing - STONE-7 Assessment Tool: STONE-7 Assessment 17350 ([id number]) PHQ-9 - 97048 - PHQ-9 Billing: Yes ([id number]) Assessment & Plan Assessment & Plan (1) HTN (hypertension): Code(s): I10 - Essential (primary) hypertension Category: Medical Qualifiers: Hypertension type: primary hypertension Qualified Code(s): I10 - Essential (primary) hypertension Plan: Patient's blood pressure acceptable today in office. Will continue current dose of lisinopril 20 mg. Goal blood pressures to remain below 140/90 (2) Hypothyroidism: Onset Date: ~1999 Comment: (dx in 1999, was dx Billy's disease in 2011) Code(s): E03.9 - Hypothyroidism, unspecified Category: Medical Qualifiers: 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 Qualified Code(s): E03.8 - Other specified hypothyroidism; E06.3 - Autoimmune thyroiditis Plan: Patient is followed by lcac radar operator/navigator at [facility]. Does take 100 mcg of levothyroxine depending on her hyper or hypothyroid symptoms. There was thought that her thyroid is causing a lot of her cardiac symptoms. Will Be considering a thyroidectomy and a 2nd opinion from an alternative lcac radar operator/navigator. Her lipid panel continues to be very elevated though we are attributing this to her mild functioning thyroid. She did get endoscopy and colonoscopy recently and there are some concerns for a malabsorption. Will she will be following up with the [place] director of catering sales to discuss this. (3) HLD (hyperlipidemia): Code(s): E78.5 - Hyperlipidemia, unspecified Category: Medical Qualifiers: Hyperlipidemia type: mixed hyperlipidemia Qualified Code(s): E78.2 - Mixed hyperlipidemia Plan: As above patient's lipid panel continues to show very elevated total cholesterol and LDL. We are attributing her cholesterol elevations in her mild functioning thyroid. She has tried statin therapy in the past though had rhabdo (4) COPD (chronic obstructive pulmonary disease): Code(s): J44.9 - Chronic obstructive pulmonary disease, unspecified Category: Medical Qualifiers: COPD type: unspecified COPD Qualified Code(s): J44.9 - Chronic obstructive pulmonary disease, unspecified Plan: Patient has a previous smoker. She reports no pulmonary symptoms. Does not use any maintenance inhaler albuterol inhaler. (5) MDD (major depressive disorder), recurrent episode, moderate: Code(s): F33.1 - Major depressive disorder, recurrent, moderate Category: Medical Plan: Patient's PHQ-9 score is 0, she does have history of depression though since feeling better from a medical standpoint depression and also has been better. (6) Rotator cuff impingement syndrome of right shoulder: Code(s): M75.41 - Impingement syndrome of right shoulder Category: Medical Plan: Continues in physical therapy for her right shoulder tendinopathy and labral tear. She does report Tylenol with codeine has been helpful on reducing her pain. She does have connective tissue disease thus does use Tylenol No. 3 for her pain as well. Orders: Orders TSH reflex Free T4 06/17/24 E03.8 - Other specified hypothyroidism, E06.3 - Autoimmune thyroiditis Comprehensive Met. Panel 06/17/24 E03.8 - Other specified hypothyroidism, E06.3 - Autoimmune thyroiditis Patient Instructions: Goal: Blood pressure to remain below 140/90. Control thyroid disease Barriers: Adherence to physical activity and healthy eating habits
--- OUTSIDE RECORDS SUMMARY | 2024-06-17 14:42 | XMS_ITS | Data Portability ---
Author Organization [employer] [facility], In in - [facility] Address [address] [place] [id number] Care Team Providers Care Razor Grinder Name Role Phone [facility] Referring Provider [phone] Assessment Encounter Date Assessment Date Assessment LastModified [...] None recorded. Lab culture, urine 2023 024 [place] [facility], [address] [place], [address], 4 18:18:26 urinalysis , dipstick 2023 024 [facility], [address] [place] [address], [phone], 4 19:05:08 Referral None recorded. Procedures None recorded. Surgeries None recorded. Imaging None recorded. Medication Orders Bactrim DS 800 mg-160 mg tablet 2023 024 [id number], [address], [place], [phone], 15:19:21 Bactrim DS 800 mg-160 mg tablet 2023 Cedric w[facility][id number], [address] [facility], [place], [phone], 15:19:12 Patient TargetsNo targets recorded. Patient InstructionsNo instructions recorded. Reason for Referral None Reported. Results Created Date Observation Date Name Description Value Unit Range Abnormal Flag Note LastModifiedBy Organization Detail LastModifiedTime 05/26/19 24 05/26/2023 URINE CULTU RE specimen description URINE Not Available [facility] [address] [place], [id number], 05/27/2023 18:18:25 05/26/19 24 05/26/2023 URINE CULTU RE special requests NONE Not Available [facility] [address] [place], [address], 05/27/2023 18:18:25 05/26/19 24 05/27/2023 URINE CULTU RE culture NO GROWTH Not Available [facility] [address] [place], [id number], 05/27/2023 18:18:25 05/26/19 24 05/27/2023 URINE CULTU RE report status FINAL 2023 Not Available [facility] [address] [place], [address], 05/27/2023 18:18:25 05/26/19 24 05/26/2023 urina lysis , dipst ick Leukocytes Positi ve Not Available [facility] - [facility] [address] [place], [address], 05/26/2023 19:03:44 05/26/19 24 05/26/2023 urina lysis , dipst ick Nitrite positi ve Not Available Main - [facility] [address] [place], [address], 05/26/2023 19:03:44 05/26/19 24 05/26/2023 urina lysis , dipst ick Urobilinogen negati ve Not Available Main - [facility] [address] [place] [address], [address], 05/26/2023 19:03:44 05/26/19 24 05/26/2023 urina lysis , dipst ick Protein Positi ve Not Available Main - [facility] [address] [place] [address], [phone], 05/26/2023 19:03:44 05/26/19 24 05/26/2023 urina lysis , dipst ick pH 6.5 Not Available Main - [facility] [address] [place] [address], [address], 05/26/2023 19:03:44 05/26/19 24 05/26/2023 urina lysis , dipst ick Blood Positi ve Not Available Main - [facility] [address] [place] [address], [address], 05/26/2023 19:03:44 05/26/19 24 05/26/2023 urina lysis , dipst ick Specific [place] 1.015 Not Available Main - [facility] [address] [place] [address], [address], 05/26/2023 19:03:44 05/26/19 24 05/26/2023 urina lysis , dipst ick Ketone negati ve Not Available Main - [facility] [address] [place] [address], [address], 05/26/2023 19:03:44 05/26/19 24 05/26/2023 urina lysis , dipst ick Bilirubin negati ve Not Available Main - [facility] [address] [place] [address], [address], 05/26/2023 19:03:44 05/26/19 24 05/26/2023 urina lysis , dipst ick Glucose negati ve Not Available Main - [facility] [address] [place] [address], [address], 05/26/2023 19:03:44 05/26/19 24 05/26/2023 urina lysis , dipst ick Appearance no sedime nts Not Available Main - [facility] [address] [place], [address], 05/26/2023 19:03:44 05/26/19 24 05/26/2023 urina lysis , dipst ick Color orange Not Available Main - [facility] [address] [place], [address], 05/26/2023 19:03:44 Result Notes None recorded. Medical Equipment None Reported. Allergies Allergen ID Allergen Name Allergen Category Reaction Reaction Severity Criticality Documentation Date Start Date Code Code System Note Provider Name and Address Organization Details Recorded Time 3124 Compazine medicatio n Not available Not available Not available 02/26/202413007 6 RxNorm Not Available [facility] - production [...] cm 98.8 [degF] 98 % 98 % 34213.9 6 g 155 mm[Hg] 106 mm[Hg] Not [...] SNOMED-CT Code Diagnosis ICD10 Code Diagnosis Note [id number] NIKITA NIXON MD Main - [facility] [address] [place] [phone] 05/26/2023 15:16:02 05/27/2023 15:30:59 Urinary symptoms [id number] R39.9 Evaluation in the field was performed by my road grader colleague, as noted above, I provided real-time [...] acces to her urine culture results at [facility].P t is allergic at Augmentin ( reports tongue swelling and throat closing ) , so I don't feel comfortabl e giving Ceftriaxon e IV . Will start bactrim BID x7 days ( first dose given by road grader ). D/C levaquin ( usual dose for [...] worsening CVA tenderness or any other concerns. [id number] Stacy June MD Main - [facility] [address] [place] [phone] 05/29/2023 19:08:38 05/29/2023 21:40:20 Acute urinary tract infection [id number] N39.0 Health Concerns Section Related Observation LastModified by Organization Detai ls LastModified Time None Recorded Concern Status LastModified by Organization Details LastModified Time None Recorded Advance Directives Directive None Recorded Payers Encounter Date Sequence Insurance Name Policy Number Policy Chan Covered Member ID Chan Member ID Guarantor Name 05/26/2023 1 [facility] - DOS ON OR AFTER 2022 - DUAL ELIGIBLE - SNF OPTIONS AND ONE CARE (MEDICARE REPLACEMENT/ADV ANTAGE - HMO) Basilia Sawyer [id number] Basilia Sawyer 05/29/2023 1 [facility] - DOS ON OR AFTER 2022 - DUAL ELIGIBLE - SNF OPTIONS AND ONE CARE (MEDICARE REPLACEMENT/ADV ANTAGE - HMO) Basilia Sawyer [id number] Basilia Sawyer Notes Date Note Type Note [...] ...................... ...................... ...................... ...................... ...................... ...................... ......... Sprinkler Fitter Note From Arsalan Rosenbaum: Pt reports winters placed at [facility] on 05/18. Since returning home the pt [...] +NOEMÍ, +NIT, +PRO, +BLO. UC sent to [facility]. Pt treated with bactrim DS. Pt thoroughly educated on catheter care and s/sx that would indicate the ED. Pt to f/u with urology on Sunday. ...................... ...................... ...................... ...................... ...................... ...................... ......... Disposition: Sharon NIXON MD [address] [place] [address],[address], [place], [address], [email or web address] 05/26/2023 19:05:44 05/29/2023 text/html [facility] Nurse Triage Notes (Garrett Dias): Reason For Request: Pt is reporting issues lately with low blood pressure>just getting over a UTI and states not feeling right>pulse is going from high to normal>lowest top number reading was 72/73 pulse at 83, which was taken at 5pm BP at 5:20pm 106/66 Chief Complaints: Syncope/Dizziness/Ligh theadedness Allergies: Compazine Comments: Friction Paint Machine Tender verified the member's name//address and phone number [...] Cath removed yesterday. Kyra June MD [address] [facility],[address], [place], [address], [employer] 05/29/2023 19:28:59 OBGyn Episode No OBEpisode recorded.
== END 2024-06-17 14:38 | disposition home or self-care (01) ==
PROVIDERS: PCP Physician Assistant; Visit Provider Physician Assistant
DX: I10 Essential (primary) hypertension (principal); E03.8 Other specified hypothyroidism; E06.3 Autoimmune thyroiditis; E78.2 Mixed hyperlipidemia; J44.9 Chronic obstructive pulmonary disease, unspecified; F33.1 Major depressive disorder, recurrent, moderate; M75.41 Impingement syndrome of right shoulder

== ENCOUNTER → 2024-06-17 13:43 | Outpatient (BNVA) | payer OTHER, SELFPAY | PROVIDERS: PCP Physician Assistant; Visit Provider Physician Assistant | DX: I10 Essential (primary) hypertension (principal); E03.8 Other specified hypothyroidism; E06.3 Autoimmune thyroiditis; E78.2 Mixed hyperlipidemia; J44.9 Chronic obstructive pulmonary disease, unspecified; F33.1 Major depressive disorder, recurrent, moderate; M75.41 Impingement syndrome of right shoulder | CPT/HCPCS: 96127; 99212 ==

== ENCOUNTER 2024-06-25 10:18 | Outpatient (REF) | payer OTHER, SELFPAY ==
--- NOTE | ~2024-06-25 | US_ITS ---
EXAMINATION: US LOWER EXTREMITY VENOUS (REFLUX EXAM), BILATERAL CLINICAL INFORMATION: Varices. COMPARISON: DVT ultrasound dated November 20, 2023. TECHNIQUE: Color flow triplex imaging and compression Doppler was performed to evaluate both the deep and the superficial systems bilaterally. To evaluate the superficial system, the examination was performed in the upright position. Color-flow Doppler ultrasound and compression ultrasound were utilized. In addition, maneuvers were utilized to demonstrate reflux. FINDINGS: 1. DEEP VENOUS ULTRASOUND OF THE RIGHT LOWER EXTREMITY: Common Femoral Vein: Compressible, normal respiratory variation and augmented flow. Femoral Vein: Compressible, normal color flow and augmentation. Popliteal Vein: Compressible, normal augmentation. Deep Reflux: There is no evidence of reflux in the deep system in either the common femoral vein, superficial femoral or the popliteal vein. There is no evidence of a Beauchamp's cyst. 2. SUPERFICIAL ULTRASOUND WITH DOPPLER OF RIGHT LOWER EXTREMITY: GREAT SAPHENOUS VEIN: Saphenofemoral Junction: 0.6 cm; Reflux: 0 ms Proximal Thigh: 0.3 cm; Reflux: 0 ms Mid Thigh: 0.2 cm; Reflux: 0 ms Distal Thigh: 0.2 cm; Reflux: 0 ms At Knee: 0.1 cm; Reflux: 0 ms Proximal Calf: 0.1 cm; Reflux: 0 ms Mid Calf: 0.2 cm; Reflux: 0 ms Distal Calf: 0.2 cm; Reflux: 0 ms DUPLICATED MEDIAL GREAT SAPHENOUS VEIN: Diameter: None imaged Reflux: NA DUPLICATED LATERAL GREAT SAPHENOUS VEIN: Diameter: 0.2 cm. Reflux: NA SMALL SAPHENOUS VEIN: Saphenopopliteal Junction: 0.4 cm; Reflux: 0 ms Proximal: 0.1 cm; Reflux: 0 ms Distal: 0.1 cm; Reflux: 0 ms VEIN OF GIACOMINI: Size: 0.2 cm. Reflux: NA PERFORATORS: Location: Proximal to mid calf. Size: 0.1-0.2 cm. Reflux: NA VARICOSITIES: Location: Mid thigh. Size: 0.3 cm. Reflux: NA 3. DEEP VENOUS ULTRASOUND OF THE LEFT LOWER EXTREMITY: Common Femoral Vein: Compressible, normal respiratory variation and augmented flow. Femoral Vein: Compressible, normal color flow and augmentation. Popliteal Vein: Compressible, normal augmentation. Deep Reflux: There is no evidence of reflux in the deep system in either the common femoral vein, superficial femoral or the popliteal vein. There is no evidence of a Beauchamp's cyst. 4. SUPERFICIAL ULTRASOUND WITH DOPPLER OF LEFT LOWER EXTREMITY: GREAT SAPHENOUS VEIN: Saphenofemoral Junction: 0.8 cm; Reflux: 0 ms Proximal Thigh: 0.5 cm; Reflux: 0 ms Mid Thigh: 0.1 cm; Reflux: 0 ms Distal Thigh: 0.2 cm; Reflux: 1572 ms At Knee: 0.2 cm; Reflux: 0 ms Proximal Calf: 0.2 cm; Reflux: 0 ms Mid Calf: 0.1 cm; Reflux: 0 ms Distal Calf: 0.2 cm; Reflux: 2104 ms DUPLICATED MEDIAL GREAT SAPHENOUS VEIN: Diameter: None imaged Reflux: NA DUPLICATED LATERAL GREAT SAPHENOUS VEIN: Diameter: 0.3 cm. Reflux: NA SMALL SAPHENOUS VEIN: Saphenopopliteal Junction: 0.7 cm; Reflux: 0 ms Proximal: 0.1 cm; Reflux: 0 ms Distal: 0.2 cm; Reflux: 1976 ms VEIN OF GIACOMINI: Size: NA Reflux: NA PERFORATORS: Location: Mid calf. Size: 0.1 cm. Reflux: NA VARICOSITIES: Location: None Imaged Size: NA Reflux: NA US/US venous duplex LE BI IMPRESSION: Right: No venous insufficiency. Varices in the mid thigh without reflux. Left: Venous insufficiency, great saphenous vein above the knee and at the ankle. Venous insufficiency, small saphenous vein in the distal calf. Electronically signed by: Casey Nuñez MD 06/25/2024 02:29 PM [facility]
--- OUTSIDE RECORDS SUMMARY | 2024-06-25 12:31 | XMS_ITS | Data Portability ---
Author Organization [facility], , [facility] Address [address] [place] [address] Assessment Encounter Date Assessment Date Assessment LastModified by Organization Details LastModified Time 04/26/2009 04/26/2009 Study: Hip(s) Comparison: None Findings: No fractures, dislocations, or suspicious lesions. Hips are symmetric in appearance without significant degenerative changes. Bony pelvis intact, sacroiliac joints patent.? ? ? Slight deformity or benign-appearin g sclerosis right iliac crest Impression: Essentially negative left hip. Not available 01/11/2011 02:21:34 Plan of Treatment Reminders Order Date Submit Date Provider Last Modified By Organization Details Last Modified Time Details Appointments None recorded. Lab None recorded. Referral hand surgeon referral - Wrist pain, R>L. Started 5mos ago on R. Saw neurologist , EMG was neg. 2008 009 FAN Hook MD, [address], [address], [place], [address], 3 03:29:21 orthopedic surgeon referral - biceps tendonitis and tennis elbow 2008 009 FAN Not available 3 03:20:08 physical therapist referral - tendonitis in elbow and shoulder 2008 009 FAN [facility], [address] [place] [address], [facility], [place], [address], 3 03:20:08 Procedures None recorded. Surgeries None recorded. Imaging x-ray, hip - L side, call when ready 2008 009 [facility], [address] [place], [address], 3 03:47:47 Medication Orders Percocet 10 mg-650 mg tablet 2008 009 [facility], [address] [place], [address], 4 02:34:28 lisinopril 10 mg tablet 2008 009 [facility], [address] [place], [address], 4 02:58:49 Percocet 10 mg-650 mg tablet 2008 009 [facility], [address] [place], [address], 4 02:32:37 Percocet 10 mg-650 mg tablet 2008 009 FAN [facility], [address] [place], [address], 3 03:20:08 Patient TargetsNo targets recorded. Patient Instructions Encounter Date Encounter Id Patient Instructions Last Modified By Organization Details Last Modified Time 08/24/2008 [id number] Not available 11/28/2010 02:58:13 Reason for Referral biceps tendonitis and tennis elbow Referring Physician: [facility], Encounter Date: 08/24/2008 tendonitis in elbow and shou lder Referring Physician: [facility], Encounter Date: 08/24/2008 Wrist pain, R>L. Started 5mo s ago on R. Saw neurologist, EMG was neg. Referring Physician: Yuki Crowley, Family Medicine, Encounter Date: 11/17/2008 Results Created Date Observation Date Name Description Value Unit Range Abnormal Flag Note LastModifiedBy Organization Detail LastModifiedTime 07/31/19 09 07/30/2008 elect rocar diogr am Result Normal ECG Not Available [address], [address], 07/30/2008 16:59:12 07/31/19 09 07/30/2008 urina lysis , dipst ick Glucose Negati ve Not Available [address], [address], 07/30/2008 16:43:42 07/31/19 09 07/30/2008 urina lysis , dipst ick Bilirubin Negati ve Not Available [address], [address], 07/30/2008 16:43:42 07/31/19 09 07/30/2008 urina lysis , dipst ick Ketone Negati ve Not Available [address], [address], 07/30/2008 16:43:42 07/31/19 09 07/30/2008 urina lysis , dipst ick Specific Willis 1.025 Not Available [address], [address], 07/30/2008 16:43:42 07/31/19 09 07/30/2008 urina lysis , dipst ick Blood Trace Not Available [address], [address], 07/30/2008 16:43:42 07/31/19 09 07/30/2008 urina lysis , dipst ick pH 6.0 Not Available [address], [address], 07/30/2008 16:43:42 07/31/19 09 07/30/2008 urina lysis , dipst ick Protein Negati ve Not Available [address], [address], 07/30/2008 16:43:42 07/31/19 09 07/30/2008 urina lysis , dipst ick Urobilinogen .2 Not Available [address], [address], 07/30/2008 16:43:42 07/31/19 09 07/30/2008 urina lysis , dipst ick Nitrite negati ve Not Available [address], [address], 07/30/2008 16:43:42 07/31/19 09 07/30/2008 urina lysis , dipst ick Leukocytes Negati ve Not Available [address], [address], 07/30/2008 16:43:42 07/14/19 09 07/13/2008 urina lysis , dipst ick Glucose Negati ve Not Available [address], [address], 07/13/2008 17:47:59 07/14/19 09 07/13/2008 urina lysis , dipst ick Bilirubin Negati ve Not Available [address], [address], 07/13/2008 17:47:59 07/14/19 09 07/13/2008 urina lysis , dipst ick Ketone Negati ve Not Available [address], [address], 07/13/2008 17:47:59 07/14/19 09 07/13/2008 urina lysis , dipst ick Specific Willis 1.020 Not Available [address], [address], 07/13/2008 17:47:59 07/14/19 09 07/13/2008 urina lysis , dipst ick Blood Trace Not Available [address], [address], 07/13/2008 17:47:59 07/14/19 09 07/13/2008 urina lysis , dipst ick pH 6.0 Not Available [address], [address], 07/13/2008 17:47:59 07/14/19 09 07/13/2008 urina lysis , dipst ick Protein Negati ve Not Available [address], [address], 07/13/2008 17:47:59 07/14/19 09 07/13/2008 urina lysis , dipst ick Urobilinogen .2 Not Available [address], [address], 07/13/2008 17:47:59 07/14/19 09 07/13/2008 urina lysis , dipst ick Nitrite negati ve Not Available [address], [address], 07/13/2008 17:47:59 07/14/19 09 07/13/2008 urina lysis , dipst ick Leukocytes Trace Not Available [address], [address], 07/13/2008 17:47:59 07/18/19 09 07/17/2008 CBC WBC 6.3 K/?L 4.6-10 .2 Not Available [address], [address], 07/17/2008 11:58:59 07/18/19 09 07/17/2008 CBC lymph # 1.7 K/?L 0.6-3. 4 Not Available [address], [address], 07/17/2008 11:58:59 07/18/19 09 07/17/2008 CBC mid # 0.3 K/?L 0.0-1. 8 Not Available [address], [address], 07/17/2008 11:58:59 07/18/19 09 07/17/2008 CBC gran # 4.3 K/?L 2.0-6. 9 Not Available [address], [address], 07/17/2008 11:58:59 07/18/19 09 07/17/2008 CBC lymph % 26.4 % 10.0-5 0.0 Not Available [address], [address], 07/17/2008 11:58:59 07/18/19 09 07/17/2008 CBC mid % 4.6 % 0.1-24 .0 Not Available [address], [address], 07/17/2008 11:58:59 07/18/19 09 07/17/2008 CBC gran % 69.0 % 37.0-8 0.0 Not Available [address], [address], 07/17/2008 11:58:59 07/18/19 09 07/17/2008 CBC RBC 4.38 M/?L 4.04-5 .48 Not Available [address], [address], 07/17/2008 11:58:59 07/18/19 09 07/17/2008 CBC HGB 13.4 g/dL 12.2-1 6.2 Not Available [address], [address], 07/17/2008 11:58:59 07/18/19 09 07/17/2008 CBC HCT 38.9 % 37.7-4 7.9 Not Available [address], [address], 07/17/2008 11:58:59 07/18/19 09 07/17/2008 CBC MCV 88.7 ?L 80.0-9 7.0 Not Available [address], [address], 07/17/2008 11:58:59 07/18/19 09 07/17/2008 CBC MCH 30.6 pg 27.0-3 1.2 Not Available [address], [address], 07/17/2008 11:58:59 07/18/19 09 07/17/2008 CBC MCHC 34.4 g/dL 31.8-3 5.4 Not Available [address], [address], 07/17/2008 11:58:59 07/18/19 09 07/17/2008 CBC plt 354.0 K/?L 142.0- 424.0 Not Available [address], [address], 07/17/2008 11:58:59 07/18/19 09 07/17/2008 CBC RDW 13.2 % 11.6-1 4.8 Not Available [address], [address], 07/17/2008 11:58:59 07/18/19 09 07/17/2008 CBC _MPV 0.0 Not Available [address], [address], 07/17/2008 11:58:59 07/18/19 09 07/17/2008 ALT (SGPT ) ALT 25 U/L 30-65 low Not Available [address], [address], 07/17/2008 12:20:50 07/18/19 09 07/17/2008 lipid panel cholesterol 195 mg/dL <200 mg/dL adia eable 200-2 39 mg/dL borde rline high >240 mg/dL high Not Available [address], [address], 07/17/2008 12:20:52 07/18/19 09 07/17/2008 lipid panel triglyceride s 103 mg/dL <150 mg/dL rober l 150-1 99 mg/dL borde rline high 200-4 99 mg/dL high >500 mg/dL very high Not Available [address], [address], 07/17/2008 12:20:52 07/18/19 09 07/17/2008 lipid panel direct HDL 34 mg/dL <40 mg/dL - major risk for CHD >60 mg/dL - negat angelo risk for CHD Not Available [address], [address], 07/17/2008 12:20:52 07/18/19 09 07/17/2008 lipid panel direct LDL 145 mg/dL risk categ ory LDL goal _ CHD or CHD risk equiv alent s <100 mg/dL (10-y ear risk >20%) 2+ risk facto rs <130 mg/dL (10-y ear risk <= 20%) 0-1 risk facto r? <160 mg/dL ? almos t all peopl e with 0-1 risk facto r have A 10 year risk <10%, thus 10 year risk asses ment in peopl e with 0-1 risk facto r IS not jacob ricardo. Not Available [address], [address], 07/17/2008 12:20:52 07/18/19 09 07/17/2008 basic metab olic panel glucose 103 mg/dL 70-100 high clini kirsetn refer ence range s fasti ng gluco se <100 mg/dL = rober l fasti ng gluco se; 100-1 25 mg/dL = ifg (impa ired fasti ng gluco se); >126 mg/dL = provi siona l diagn osis of diabe nahum (conf irm by repea t testi ng on A diffe day.) Not Available [address], [address], 07/17/2008 12:20:54 07/18/19 09 07/17/2008 basic metab olic panel BUN 10 mg/dL 7-18 Not Available [address], [address], 07/17/2008 12:20:54 07/18/19 09 07/17/2008 basic metab olic panel creatinine 0.8 mg/dL 0.8-1. 3 Not Available [address], [address], 07/17/2008 12:20:54 07/18/19 09 07/17/2008 basic metab olic panel B/C 12.5 ratio Not Available [address], [address], 07/17/2008 12:20:54 07/18/19 09 07/17/2008 basic metab olic panel GFR 89.4 mL/mi n recom inez d GFR by the natio nal kidne y found ation >60 mL/mi n/1.7 3M2 - rober l <60 mL/mi n/1.7 3M2 - chron ic kidne y disea se <15 mL/mi n/1.7 3M2 - kidne y failu re Not Available [address], [address], 07/17/2008 12:20:54 07/18/19 09 07/17/2008 basic metab olic panel GFR - if 102.8 mL/mi n for afric an ameri can patie nts: resul ts multi plied by 1.21 Not Available [address], [address], 07/17/2008 12:20:54 07/18/19 09 07/17/2008 basic metab olic panel sodium 139 mmol/ L 136-14 5 Not Available [address], [address], 07/17/2008 12:20:54 07/18/19 09 07/17/2008 basic metab olic panel potassium 4.1 mmol/ L 3.5-5. 1 Not Available [address], [address], 07/17/2008 12:20:54 07/18/19 09 07/17/2008 basic metab olic panel chloride 101 mmol/ L 96-107 Not Available [address], [address], 07/17/2008 12:20:54 07/18/19 09 07/17/2008 basic metab olic panel _anion gap 13.0 Not Available [address], [address], 07/17/2008 12:20:54 07/18/19 09 07/17/2008 basic metab olic panel CO2 25 mmol/ L 21-32 Not Available [address], [address], 07/17/2008 12:20:54 07/18/19 09 07/17/2008 basic metab olic panel calcium 9.1 mg/dL 8.5-10 .3 Not Available [address], [address], 07/17/2008 12:20:54 07/18/19 09 07/17/2008 thyro id stimu latin g hormo ne (TSH) TSH 0.41 uIU/m L 0.50-6 .00 low the ameri can colle ge of endoc rinol ogy and ameri can thyro id assoc iatio n recom mend goal TSH value s betwe en 1.0-2 .5 mIU/m L. Not Available [address], [address], 07/17/2008 12:40:44 08/05/19 09 08/05/2008 ESR sed rate 16.0 0.0-15 .0 high Not Available [address], [address], 08/05/2008 10:47:19 08/05/19 09 08/05/2008 thyro id stimu latin g hormo ne (TSH) TSH 0.12 uIU/m L 0.50-6 .00 low the ameri can colle ge of endoc rinol ogy and ameri can thyro id assoc iatio n recom mend goal TSH value s betwe en 1.0-2 .5 mIU/m L. Not Available [address], [place], [address], 08/05/2008 11:24:23 08/05/19 09 08/05/2008 prote in, total and prote in elect ropho resis protein, total 6.9 g/dL 6.2-8. [address] [facility] [place] [facility] [address], [address], 08/05/2008 14:28:29 08/05/19 09 08/05/2008 prote in, total and prote in elect ropho resis albumin 3.9 g/dL 3.5-4. 7 normal Not Available [facility] [address], [address], 08/05/2008 14:28:29 08/05/19 09 08/05/2008 prote in, total and prote in elect rop resis [id number]-8-[id number] ulins 0.3 g/dL 0.1-0. 3 normal Not Available [facility] [address], [place], [address], 08/05/2008 14:28:29 08/05/19 09 08/05/2008 prote in, total and prote in elect ropho resis eyikh-4-jfca ulins 0.7 g/dL 0.5-1. 0 normal Not Available [facility] [address], [address], 08/05/2008 14:28:29 08/05/19 09 08/05/2008 prote in, total and prote in elect ropho resis beta globulins 1.0 g/dL 0.8-1. 4 normal Not Available [facility] [address], [address], 08/05/2008 14:28:29 04/07/20 09 08/05/2008 prote in, total and prote in elect ropho resis gamma globulins 1.0 g/dL 0.6-1. 6 normal Not Available [facility] [place] [facility] [address], [place], [address], 08/05/2008 14:28:29 08/05/19 09 08/05/2008 prote in, total and prote in [facility] on [place] rn Not Available [facility] [place] [facility] [address], [place], [address], 08/05/2008 14:28:29 08/05/19 09 08/05/2008 rheum atoid facto r rheumatoid factor 27.7 IU/mL 0.0-16 .0 high <16.0 IU/mL - negat angelo 16.0- 19.9 IU/mL - equiv ocal >20.0 IU/mL - posit angelo Not Available [address], [address], 08/05/2008 16:24:06 08/05/19 09 08/05/2008 YOUNG YOUNG screen 1.29 0.00-0 .39 high YOUNG=s ample [facility] to [facility] karthik rn and titer . <0.4 -nega tive 0.40 - 1.10 -equi vocal >1.10 -posi tive Not Available [address], [address], 08/05/2008 16:24:06 08/05/19 09 08/06/2008 RPR RPR NON-RE ACTIVE nonrea ctive Not Available [address], [address], 08/06/2008 10:56:20 08/05/19 09 08/07/2008 lyme disea se igg, igm borrelia burgdorferi Ab 0.20 <0.90 <=0.9 0 - negat angelo 0.91 - 1.09 - equiv ocal >=1.1 0 - posit angelo Not Available [facility] [address] [facility] [facility], [place], [address], 08/07/2008 10:21:55 08/05/1908/07/2008 test autho rizat ion test(s) ordered on requisition YOUNG SCREEN IFA W/REFL TITER IFA Not Available [facility] [address], [address], 08/08/2008 07:40:18 08/05/19 09 08/07/2008 test autho rizat ion test code: 04719 Not Available [facility] [address], [address], 08/08/2008 07:40:18 08/05/19 09 08/07/2008 test autho rizat ion client contact: DAVID Starks Not Available [facility] [address], [place], [address], 08/08/2008 07:40:18 08/05/19 09 08/07/2008 test autho rizat ion report always message signature the labor atory testi ng on this patie nt was verba lly reque sted or confi rmed by the order ing physi charles or his or her autho rized repre senta tive after conta ct with an emplo schuster of [facility] diagn ostdixon sAntonio naranjo al regul ation s requi re that we maint ain on file writt en autho rizat ion for all labor atory testi ng. accor dingl y we are askin g that the order ing physi charles or his or her autho rized repre senta tive sign A copy of this repor t and promp tly retur n IT to the clviola t harikai ce repre senta tive. signa ture: __ Not Available [facility] [place] [facility] [address], [place], [address], 08/08/2008 07:40:18 08/05/19 09 08/07/2008 YOUNG scree n, ifa YOUNG screen POSITI VE negati ve abnormal Not Available [facility] [place] [facility] [address], [place], [address], 08/08/2008 07:40:18 08/05/19 09 08/07/2008 YOUNG scree n, ifa YOUNG pattern SPECKL ED abnormal Not Available [facility] [place] [facility] [address], [place], [address], 08/08/2008 07:40:18 08/05/19 09 08/07/2008 YOUNG scree n, ifa antinuclear antibodies 1:40 titer high refer ence range : <1:40 negat angelo 1:40 - 1:80 low antib adrienne level >1:80 eleva jessica antib adrienne level Not Available [facility] [place] [facility] [address], [place], [address], 08/08/2008 07:40:18 08/05/19 09 08/10/2008 vitam in B12 vitamin B12 564 pg/mL 230-10 50 Not Available [address], [address], 08/10/2008 08:37:36 08/05/19 09 08/10/2008 folat e folate 12 NG/mL 3-16 Not Available [address], [address], 08/10/2008 08:37:36 08/08/19 09 08/06/2008 imagi ng/di agnos tic resul t No observ ation record ed. [facility] [address], [place], [address], 11/22/2012 03:18:23 08/15/19 09 08/12/2008 EEG No observ ation record ed. [facility] [address] [place], [address], 11/22/2012 03:20:37 04/27/20 09 04/26/2009 x-ray , hip No observ ation record ed. [facility] [address] [facility] [address] [facility], [place], [address], 11/22/2012 03:47:54 07/27/19 17 07/26/2016 shoul tyler com lt AP, Grashe y, and Y-view s of the left should er are obtain ed. No prior. No glenoh umeral or acromi oclavi cular malali gnment . Small bone island noted in the rachael l head. No promin ent bony prolif erativ e change s or joint space loss. No pneumo thorax seen in adjace nt lung. No cervic al rib. IMPRES LEILA: No fractu re or malali gnment is detect ed. POS - CDHRAD BOARDW S7 Edited by: Narcisa reinoso on 7:26 PM Techno logist : DIPAK GALARZA Transc ribed by: Rob dey, PS360 Result s 2016 07:23 PM Interp reted By: DEBRA BALLESTEROS MD Electr onical ly Signed By: Electr onical ly Signed by: DEBRA KUMAR on 7:32 PM Techno logist : DIPAK GALARZA Transc ribed by: Rob dey, PS360 Result s 2016 07:23 PM Electr onical ly Signed By: DEBRA BALLESTEROS MD 2016 07:32 PM [email or web address] [facility] [address] [place], [address], 07/26/2016 20:25:31 Result Notes None recorded. Problems Name Problem SNOMED Code Status Onset Date Resolution Date Notes Provider Name and Address Organization Details Recorded Time Headache 79685928 Active 2008 Not Available [facility] 3 03:08:46 Psychogeni c headache 11221342 Active Not Available [facility] 3 03:08:46 Rotator cuff shoulder syndrome and allied disorders Completed 03/19/2013 Not Available [facility] 3 02:03:33 Cough 21893701 Completed 200603/19/2013 Not Available [facility] 3 02:01:06 Viral disease 48677470 Completed 199903/19/2013 Not Available [facility] 3 02:03:22 Fever 067063960 Completed 200603/19/2013 Not Available [facility] 3 02:02:41 Diarrhea 00616940 Completed 200703/19/2013 Not Available [facility] 3 02:02:14 Benign essential hypertensi on 1560668 Active 2006 Not Available [facility] 3 03:08:46 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 Not Available [facility] 3 03:08:46 Tobacco user 091136514 Active 2006 Not Available [facility] 3 03:08:46 Hip pain 14915907 Completed 03/19/2013 Not Available [facility] 3 02:01:32 Disorder of soft tissue 45886653 Active 2007 Not Available [facility] 3 03:08:46 Spinal stenosis 20073505 Active 1999 Not Available [facility] 3 03:08:46 Syncope and collapse 452536295 Active Not Available [facility] 3 03:08:46 Cluster headache 693391654 Active Not Available [facility] 3 03:08:46 Sciatica 22786709 Active 2006 Not Available [facility] 3 03:08:46 Postoperat angelo hypothyroi dism 98955869 Active 2008 Not Available [facility] 3 03:08:46 Pain in elbow 01118675 Completed 06/17/2008 Not Available [facility] 3 03:08:46 Finding by method 304284430 Completed 199903/19/2013 Not Available [facility] 3 02:01:54 Chest pain 38197275 Completed 03/19/2013 Not Available [facility] 3 02:01:45 Lumbar sprain 519099071 Completed 200603/19/2013 Not Available [facility] 3 02:03:36 Low back pain 251483067 Active 2006 Not Available [facility] 3 03:08:46 Dysuria 65101822 Completed 03/19/2013 Not Available [facility] 3 02:01:59 Backache 039919653 Completed 199903/19/2013 Not Available [facility] 3 02:01:12 Hypothyroi dism 96191767 Active 2006 Not Available [facility] 3 03:08:46 Mononeurit is 66404119 Active 2008 Not Available [facility] 3 03:08:46 Pain in wrist 11775520 Completed 03/19/2013 Not Available [facility] 3 02:02:22 Acute bronchitis 45128056 Completed 200603/19/2013 Not Available [facility] 3 02:01:35 Primary fibromyalg ia syndrome 21008200 Active 2007 Not Available [facility] 3 03:08:46 Acquired hypothyroi dism 236645291 Active Not Available [facility] 3 03:08:46 Problem Notes None recorded. Procedures Surgical History None recorded. Imaging Results Imaging Date Name Status LastModified by [facility] Details LastModified Time 08/06/2008 imaging/diagn ostic result completed [facility] [address] [place], [address], 11/22/2012 03:18:23 08/12/2008 EEG completed [facility] [address] [place], [address], 11/22/2012 03:20:37 04/26/2009 x-ray, hip completed [address] [place], [address], 11/22/2012 03:47:54 07/26/2016 shoulder com lt completed [email or web address] [facility] [address], [place], [address], 07/26/2016 20:25:31 Procedure Notes None recorded. Medical Equipment None Reported. Allergies Allergen ID Allergen Name Allergen Category Reaction Reaction Severity Criticality Documentation Date Start Date Code Code System Note Provider Name and Address Organization Details Recorded Time 3262 Compazine medicatio n other severe Not available 06/20/200820307 6 RxNorm Not Available [facility] 1 06:05:20 3263 verapamil medicatio n other severe Not available 06/20/2008 54291 RxNorm Not Available [facility] 1 06:05:20 Medications Name Sig Start Date Stop Date Status Note LastModified by Organization Details LastModified Time Neurontin 300 mg capsule Begin with one pill at hs; then bid starting 06/21. On 06/23 start tid. 2008 active Not Available Not Available Not Avai lable ibuprofen 800 mg tablet Take 1 tablet every 8 hours by oral route as needed. 2008 active Not Available Not Available Not Avai lable naproxen 250 mg tablet active Take 1 three times daily Not Available Not Available Not Available Ultram 50 mg tablet active take 1 three times daily Not Available Not Available Not Available Unithroid 125 mcg tablet 2007 active Take 1.00 tabs daily Not Available Not Available Not Available lisinopril 10 mg tablet Take 1 tablet every day by oral route. 2008 active Not Available Not Available Not Avai lable Unithroid 100 mcg tablet Take 1 tablet every day by oral route. 2008 active Not Available Not Available Not Avai lable propranolo l 20 mg tablet Take 1 tablet twice a day by oral route. 07/29 completed Not Available Not Available Not Available Cipro 250 mg tablet Take 1 tablet every 12 hours by oral route. 07/20 completed Not Available Not Available Not Available Percocet 10 mg-650 mg tablet Take 1 tablet every 8 hours by oral route as needed. 2009 active Not Available Not Available Not Avai lable Vitals Date Recorded Body weight Systolic blood pressure Diastolic blood pressure Provider Name and Address Organization Details Last Updated DateTime 08/24/2008 67438.9434 54 g 126 mm[Hg] 98 mm[Hg] Aundrea Benson [facility] 08/24/2008 17:50:09 Date Recorded Body height Body weight Body mass index (BMI) Heart rate Systolic blood pressure Diastolic blood pressure Provider Name and Address Organization Details Last Updated DateTime 9 165.1 cm 49526.5 67331 g 26 kg/m2 98 /min 130 mm[Hg] 110 mm[Hg] Yumiko Lizamamunds [facility] 9 13:10:36 Date Recorded Body height Body weight Body mass index (BMI) Systolic blood pressure Diastolic blood pressure Provider Name and Address Organization Details Last Updated DateTime 04/26/2009 165.1 cm 05762.46 8709 g 26.9 kg/m2 136 mm[Hg] 88 mm[Hg] Nhi Leyva [facility] 9 10:56:28 Social History Question Answer Notes LastModified by Organizat ion Details LastModified Time Tobacco Smoking Status Current Every Day Smoker 3 cigs per day, $8 a pack Not Available [facility] 09/22/2010 02:07:28 What Is Your Occupation? [employer] Information not available 03/16/2011 How Many Children Do You Have? 4 19, 17 Twins, 8yo [email or web address] Information not available 07/13/2008 Sex: Unknown Functional Status None recorded. Mental Status None recorded. Family History Nothing Reported. Medical History No medical history recorded. Gynecological HistoryNo gynecological history recorded. Obstetrics History GPAL:G 0 P 0 0 0 0 Past Encounters Encounter ID Performer Location Encounter Start Date Encounter Closed Date Diagnosis/Indication Diagnosis SNOMED-CT Code Diagnosis ICD10 Code Diagnosis Note [id number] , [facility], OFFICE [address] [place] [address] 03/02/2000 09:30:00 05/20/2008 02:02:29 [id number] [facility] , [facility] [address] [place] [address] 03/02/2000 10:00:00 05/20/2008 02:02:29 [id number] [facility], OFFICE [address] [place] [address] 03/12/2000 11:45:00 05/20/2008 02:02:29 [id number] , [facility], OFFICE [address] [place] [address] 04/02/2000 10:45:00 05/20/2008 02:02:29 [id number] , [facility], OFFICE [address] [place] [address] 04/10/2000 17:15:00 05/20/2008 02:02:29 [id number] , [facility], OFF[address] [facility] [place] [address] 08/13/2006 15:29:33 08/13/2006 16:24:59 [id number] , [facility], [address] [facility] [place] [address] 08/31/2006 09:10:43 08/31/2006 10:17:51 [id number] , [facility], OFF[address] [facility] [place] [address] 09/03/2006 09:05:33 09/03/2006 10:37:55 [id number] LAB - [facility] [address] [facility] [place] [address] 10/02/2006 13:24:17 10/02/2006 13:27:17 [id number] , [facility], OFF[address] [facility] [place] [address] 01/16/2007 15:41:02 01/16/2007 16:49:24 [id number] [facility] , [facility] [address] [place] [address] 02/27/2007 10:52:59 02/28/2007 08:35:45 [id number] , [facility], OFF[address] [facility] [place] [address] 02/27/2007 09:28:57 03/06/2007 15:02:58 [id number] , [facility], OFF[address] [facility] [place] [address] 03/13/2007 13:26:21 03/27/2007 15:02:33 [id number] LAB - [facility] [address] [facility] [place] [address] 03/13/2007 14:26:40 03/13/2007 14:50:06 [id number] , [facility], OFF[address] [facility] [place] [address] 04/02/2007 15:01:28 05/20/2008 02:02:29 [id number] [facility], OFFICE [address] [place] [address] 09/08/2007 10:42:19 05/20/2008 02:02:29 [id number] , [facility], [address] [facility] [place] [address] 09/10/2007 14:51:21 05/20/2008 02:02:29 [id number] [facility], OFF[address] [facility] [place] [address] 09/17/2007 15:20:28 05/20/2008 02:02:29 [id number] [facility], OFFICE [address] [place] [address] 09/19/2007 14:00:26 05/20/2008 02:02:29 [id number] LAB - [facility] [address] [facility] [place] [address] 09/18/2007 07:38:42 09/18/2007 07:39:14 [id number] LAB - [address] [address] 09/19/2007 13:53:09 09/19/2007 13:53:15 [id number] LAB - [facility] [address] [place] [address] 09/20/2007 07:17:42 09/20/2007 07:17:49 [id number] [facility], OFFICE [address] [facility] [place] [address] 09/26/2007 13:48:03 10/23/2007 08:01:28 [id number] [facility], OFFICE [address] [place] [address] 04/11/2008 14:47:55 05/20/2008 02:02:29 [id number] [facility], OFFICE [address] [place] [address] 06/15/2008 16:34:40 07/01/2008 08:34:00 [id number] [facility], OFFICE [address] [place] [address] 06/20/2008 11:33:33 06/25/2008 11:01:19 [id number] , [facility], [address] [facility] [place] [address] 07/13/2008 17:32:48 07/15/2008 12:23:33 [id number] , [facility], OFF[address] [facility] [place] [address] 07/28/2008 10:19:50 07/29/2008 10:21:26 [id number] [facility], OFFICE [address] [facility] [place] [address] 07/30/2008 15:40:22 07/31/2008 09:28:04 [id number] , [facility], OFF[address] [facility] [place] [address] 08/24/2008 17:32:03 08/26/2008 13:55:06 [id number] [facility], OFFICE [address] [facility] [place] [address] 11/17/2008 12:57:26 11/23/2008 15:36:35 [id number] [facility] - [facility] [address] [facility] [place] [address] 07/17/2008 06:54:59 07/17/2008 07:18:00 [id number] LAB - [address] [address] 08/04/2008 14:04:53 08/04/2008 14:04:58 [id number] LAB - [address] [address] 08/04/2008 00:00:00 02/25/2009 02:00:52 [id number] [facility], OFFICE [address] [facility] [place] [address] 04/26/2009 10:16:13 04/28/2009 14:19:32 [id number] [facility] , C [address] [facility] [place] [address] 04/26/2009 11:34:40 05/03/2009 14:24:49 Health Concerns Section Related Observation LastModified by Organization Caridadai ls LastModified Time None Recorded Concern Status LastModified by Organization Details LastModified Time None Recorded Advance Directives Directive None Recorded Payers Encounter Date Sequence Insurance Name Policy Number Policy Chan Covered Member ID Chan Member ID Guarantor Name 08/04/2008 1 [facility] (MEDICAID HMO) Basilia Breenehan [id number] Basilia Meek Digna 08/24/2008 1 [facility] PLAN (MEDICAID HMO) Basilia Digna [id number] Basilia eMek Digna 11/17/2008 1 *SELF PAY* Shashi fishifer R Digna 04/26/2009 1 *SELF PAY* Shashi nnifer R Digna 04/26/2009 1 *SELF PAY* Shashi nnifer R Digna Notes Date Note Type Note Provider Name and Address Organization Details Recorded Time 04/26/2009 text/html InitializeSe ction( this.Rusty ferrera, 1 ); this.Kalpesh ferrera(true)HPI None recorded. Charly Velásquez MD [address] [place] [address], [phone], [facility] 04/27/2009 21:49:52 OBGyn Episode No OBEpisode recorded.
--- OUTSIDE RECORDS SUMMARY | 2024-06-25 12:31 | XMS_ITS | Data Portability ---
Author Organization [employer] [facility] [place] [facility] Address [address] [place] [id number] Care Team Providers Care Distillery Manager Name Role Phone [facility] Referring [...] None recorded. Lab culture, urine 2023 024 [facility] (Centralized Electronic Ordering - All Locations), Patient Can Go To The Location Of Their Choice, [id number] 18:18:26 [facility] , [facility] [address] [place] [address], [phone], 19:05:08 Referral None recorded. Procedures None recorded. Surgeries None recorded. Imaging None recorded. Medication Orders Bactrim DS 800 mg-160 mg tablet 2023 024 [id number], [address] [place], [place], [phone], 4 15:19:21 Bactrim DS 800 mg-160 mg tablet 2023 Cedric watts [id number], [address], [place], [phone], 15:19:12 Patient TargetsNo targets recorded. Patient InstructionsNo instructions recorded. Reason for Referral None Reported. Results Created Date Observation Date Name Description Value Unit Range Abnormal Flag Note LastModifiedBy Organization Detail LastModifiedTime 05/26/1905/26/2023 URINE CULTU RE specimen description URINE Not Available [facility] (Centralized Electronic Ordering - All Locations) Patient Can Go To The Location Of Their Choice, 05/27/2023 18:18:25 05/26/19 24 05/26/2023 URINE CULTU RE special requests NONE Not Available [facility] (Centralized Electronic Ordering - All Locations) Patient Can Go To The Location Of Their Choice, 05/27/2023 18:18:25 05/26/19 24 05/27/2023 URINE CULTU RE culture NO GROWTH Not Available [facility] (Centralized Electronic Ordering - All Locations) Patient Can Go To The Location Of Their Choice, 05/27/2023 18:18:25 05/26/19 24 05/27/2023 URINE CULTU RE report status FINAL 2023 Not Available [facility] (Centralized Electronic Ordering - All Locations) Patient Can Go To The Location Of Their Choice, 05/27/2023 18:18:25 05/26/1905/26/2023 urina lysis , dipst ick Leukocytes Positi ve Not Available Main - Inst ed [address] [place] [address], [phone], 05/26/2023 19:03:44 05/26/19 24 05/26/2023 urina lysis , dipst ick Nitrite positi ve Not Available Main - Inst [facility] [address] [place], [phone], 05/26/2023 19:03:44 05/26/19 24 05/26/2023 urina lysis , dipst ick Urobilinogen negati ve Not Available Main - Inst ed [address] [place] [address], [phone], 05/26/2023 19:03:44 05/26/19 24 05/26/2023 urina lysis , dipst ick Protein Positi ve Not Available Main - Inst ed [address] [place] [address], [phone], 05/26/2023 19:03:44 05/26/19 24 05/26/2023 urina lysis , dipst ick pH 6.5 Not Available Main - Ins jess[facility] [address] [place] [address], [phone], 05/26/2023 19:03:44 05/26/19 24 05/26/2023 urina lysis , dipst ick Blood Positi ve Not Available Main - Inst [facility] [address] [place] [address], [phone], 05/26/2023 19:03:44 05/26/19 24 05/26/2023 urina lysis , dipst ick Specific [place] 1.015 Not Available Main - Inst[facility] [address] [place] [address], [phone], 05/26/2023 19:03:44 05/26/19 24 05/26/2023 urina lysis , dipst ick Ketone negati ve Not Available Main - Inst ed [address] [place] [address], [phone], 05/26/2023 19:03:44 05/26/19 24 05/26/2023 urina lysis , dipst ick Bilirubin negati ve Not Available Main - Inst ed [address] [place] [address], [phone], 05/26/2023 19:03:44 05/26/19 24 05/26/2023 urina lysis , dipst ick Glucose negati ve Not Available Main - Inst ed [address] [place] [address], [phone], 05/26/2023 19:03:44 05/26/19 24 05/26/2023 urina lysis , dipst ick Appearance no sedime nts Not Available Main - Inst [facility] [address] [place], [address], 05/26/2023 19:03:44 05/26/19 24 05/26/2023 urina lysis , dipst ick Color orange Not Available Main - [facility] [address] [place], [phone], 05/26/2023 19:03:44 Result Notes None recorded. Medical Equipment None Reported. Allergies Allergen ID Allergen Name Allergen Category Reaction Reaction Severity Criticality Documentation Date Start Date Code Code System Note Provider Name and Address Organization Details Recorded Time 7459 Compazine medicatio n Not available Not available Not available 02/26/202488307 6 RxNorm Not Available [facility] - production [...] cm 98.8 [degF] 98 % 98 % 63086.9 6 g 155 mm[Hg] 106 mm[Hg] Not [...] SNOMED-CT Code Diagnosis ICD10 Code Diagnosis Note [id number] NIKITA NIXON MD Main - [facility] [address] [place] [phone] 05/26/2023 15:16:02 05/27/2023 15:30:59 Urinary symptoms 145610335 R39.9 Evaluation in the field was performed by my balance engineer colleague, as noted above, I provided real-time [...] acces to her urine culture results at [facility].P t is allergic at Augmentin ( reports tongue swelling and throat closing ) , so I don't feel comfortabl e giving Ceftriaxon e IV . Will start bactrim BID x7 days ( first dose given by balance engineer ). D/C levaquin ( usual dose for [...] worsening CVA tenderness or any other concerns. [id number] Stacy June MD Main - [facility] [address] [place] [phone] 05/29/2023 19:08:38 05/29/2023 21:40:20 Acute urinary tract infection 708912560 N39.0 Health Concerns Section Related Observation LastModified by Organization Detai ls LastModified Time None Recorded Concern Status LastModified by Organization Details LastModified Time None Recorded Advance Directives Directive None Recorded Payers Encounter Date Sequence Insurance Name Policy Number Policy Chna Covered Member ID Chan Member ID Guarantor Name 05/26/2023 1 [facility] - DOS ON OR AFTER 2022 - DUAL ELIGIBLE - SENIOR LIVING OPTIONS AND ONE CARE (MEDICARE REPLACEMENT/ADV ANTAGE - HMO) Basilia Sawyer [id number] Basilia Sawyer 05/29/2023 1 [facility] - DOS ON OR AFTER 2022 - DUAL ELIGIBLE - SENIOR LIVING OPTIONS AND ONE CARE (MEDICARE REPLACEMENT/ADV ANTAGE - HMO) Basilia Sawyer [id number] Basilia Sawyer Notes Date Note Type Note [...] ...................... ...................... ...................... ...................... ...................... ...................... ......... Appliance Worker Note From Arsalan Rosenbaum: Pt reports winters placed at [facility] [place] [facility]. Since returning home the pt [...] +NOEMÍ, +NIT, +PRO, +BLO. UC sent to [facility]. Pt treated with bactrim DS. Pt thoroughly educated on catheter care and s/sx that would indicate the ED. Pt to f/u with urology on Sunday. ...................... ...................... ...................... ...................... ...................... ...................... ......... Disposition: Sharon NIXON MD [address] [place] [address],[address], [place], [phone], [employer] 05/26/2023 19:05:44 05/29/2023 text/html [facility] Nurse Triage Notes (Garrett Dias): Reason For Request: Pt is reporting issues lately with low blood pressure>just getting over a UTI and states not feeling right>pulse is going from high to normal>lowest top number reading was 72/73 pulse at 83, which was taken at 5pm BP at 5:20pm / Chief Complaints: Syncope/Dizziness/Ligh theadedness Allergies: Compazine Comments: Side Framer verified the member's name//address and phone number - Education provided on the response time and the member was advised to monitor reported s/s and seek emergency treatment if needed. Member reports B/P fluctuations - Reports hypotension - Last B/P was / - previously was in the 70's? Dizziness with palpitations at times - SOB- I don't feel right. Low grade fever - Nausea - Recent UTI - Cath removed yesterday. Kyra June MD [address] [place] [address],[address], [place], [phone], [place] [facility] [employer] 05/29/2023 19:28:59 OBGyn Episode No OBEpisode recorded.
== END 2024-06-25 10:19 | disposition home or self-care (01) ==
LOC: HO.US 10:18
PROVIDERS: PCP Physician Assistant; Visit Provider Physician Assistant Surgical
DX: I80.9 Phlebitis and thrombophlebitis of unspecified site (principal); I87.2 Venous insufficiency (chronic) (peripheral)
CPT/HCPCS: 93970

== ENCOUNTER → 2024-06-25 10:38 | Outpatient (BNV) | payer OTHER, SELFPAY | PROVIDERS: PCP Physician Assistant; Visit Provider Radiology Diagnostic Radiology | DX: I87.2 Venous insufficiency (chronic) (peripheral) (principal); I83.813 Varicose veins of bilateral lower extremities with pain | CPT/HCPCS: 93970 ==

== ENCOUNTER 2024-07-02 08:48 | Outpatient (RCR) | payer OTHER, SELFPAY | END 2024-08-14 11:00 | disposition home or self-care (01) | LOC: HO.PT 08:48 | PROVIDERS: PCP Physician Assistant; Visit Provider Physician Assistant | DX: M75.41 Impingement syndrome of right shoulder (principal) | CPT/HCPCS: 97110; 97140; 97161; 97530 ==

== ENCOUNTER 2024-07-03 09:33 | Outpatient (AMB) | payer OTHER, SELFPAY ==
--- NOTE | 2024-07-03 09:35 | A.OFFVIS_ITS ---
Intake Visit Reasons: Follow up 06/25/2024 Intake Note: Patient presents for follow up US. No complaints. Accompanied by: Self / Same As Patient Allergies amoxicillin [From AUGMENTIN] Allergy (Severe, Verified 07/03/24 09:36) Anaphylaxis clavulanic acid [From AUGMENTIN] Allergy (Severe, Verified 07/03/24 09:36) Anaphylaxis banana Allergy (Unknown, Verified 07/03/24 09:36) Unknown ketorolac [From Toradol] Allergy (Unknown, Verified 07/03/24 09:36) Anaphylaxis kiwi Allergy (Unknown, Verified 07/03/24 09:36) Unknown prochlorperazine [From COMPAZINE] Allergy (Unknown, Verified 07/03/24 09:36) INVOLUNTARY SPASMS Fnlivid-KZG-IuS Reductase Inhibitor Allergy (Verified 07/03/24 09:36) Muscle cramps HPI HPI Follow up 06/25/2024: Details: The patient is a 54-year-old female presenting with concerns regarding superficial venous issues at the back of her right knee, initially addressed with warm compresses following a medical recommendation. Despite the treatment providing temporary relief, the issue persisted, with the size of the affected area increasing. The swelling intensifies with prolonged standing or during her daily walking regimen, consisting of four to six miles. An ultrasound ruling out deep vein thrombosis revealed no significant concerns for deep clots, although a minor spot was detected but deemed clinically insignificant. The area experiences redness and inflammation post-exercise. Family history raised concerns due to instances of severe venous issues and blood clots but clinical reassurance was offered given the test results. Current home management includes nonsteroidal anti-inflammatory drugs and compression stockings, employed along the full leg due to the location of the venous issue. No immediate threat to her health was identified, allowing for monitoring and reactive management depending on symptom progression. ON LICENSE OF [facility] Medical History Neha-Danlos syndrome Neuropathy Thrombophlebitis of left leg Rectocele Elevated cholesterol History of cervical cancer Family history of colon cancer Nicotine dependence, cigarettes, uncomplicated HTN (hypertension) Family history of pancreatic cancer COPD (chronic obstructive pulmonary disease) Dysphagia Vitamin D deficiency Hypothyroidism (~1999) Surgical History History of loop electrical excision procedure (LEEP) History of endometrial ablation History of tonsillectomy (~1976) History of History of throat surgery (~2011) Family History Mother Alzheimer's dementia CVD (cardiovascular disease) Maternal Grandfather Pancreatic cancer Social History Household Members: Children Household Members Other:: lives at home with 20-year-old daughter Housing: Apartment Do you presently have visiting nurse or other home services: No Alcohol intake: never Comment: vaginal area Patient Tobacco Use Status: Former Tobacco user Tobacco use type: Cigarette Cigarette Packs Per Day: 0.5 Cigarettes Per Day: 5 Years Smoked: (onset 11, 1ppd x 40yrs, now 1/4ppd, 40pyh) e-Cigarette/Vaping Use: Never Used Second Hand Smoke Exposure: Yes Substance Use Type: Marijuana Advance Directives Date on File: 09/11/22 service: No Current occupational status: disabled Cognitive needs: No Hearing needs: No Vision needs: No Female Reproductive History Menstrual Age of Menarche: 11 Review of Systems Const All systems reviewed & are unremarkable except as noted in HPI and below Reports no additional complaints ENT Reports Normal hearing present Card Denies chest pain, Denies chest pain at rest, Denies chest pain with activity and Denies pedal edema Resp Denies cough GI Denies abdominal pain Musc Denies abnormal gait, Denies muscle cramps and Denies radiating pain into limb Skin/Breast Denies skin ulcer and Denies wounds Neuro Reports Normal hearing present and Denies abnormal gait Psych Reports no additional complaints Physical Exam Const General: cooperative, healthy appearing and comfortable Orientation/consciousness: oriented to person, oriented to place and oriented to time HEENT Head: Yes normal to inspection Neck Neck: Yes normal visual inspection Carotids: no bruits Chest Chest palpation & inspection: normal inspection of the chest Resp Effort & Inspection: normal respiratory effort and able to speak in complete sentences Auscultation: clear to auscultation bilaterally, no crackles, no rales, no rhonchi and no wheezes Cardio Rate: regular rate Rhythm: regular rhythm Heart sounds: S1 normal heart sound present and S2 normal heart sound present Bruits: no carotid bruits Peripheral pulses: Peripheral pulses 2+ throughout GI Inspection: Yes normal to inspection Skin Wounds: no wounds Hair: normal Neuro General: oriented to person, oriented to place and oriented to time Cranial nerves: Yes CN's II-XII intact bilaterally and Yes Normal hearing present Cognition (Neuro): normal cognition Motor exam (neuro): 5/5 motor strength present throughout Extrem Other: venous exam: +1 edema with vein coursing through the posterior portion of the left thigh General: No clubbing, No cyanosis and Yes edema Psych Appearance: grossly normal Mental Status: mental status grossly normal Speech and movement: Normal speech and movement present Results Reviewed Results Reviewed: Brief summary of venous insufficiency testing is as follows: right great saphenous vein: negative right small saphenous vein: negative right accessory vein: none present left great saphenous vein: Focally positive above knee but vein small in caliber left small saphenous vein: negative left accessory vein: none present Please note there is no evidence of any venous aneurysms or significant tortuosity Assessment & Plan Assessment & Plan (1) Varicose veins of left lower extremity with inflammation: Code(s): I83.12 - Varicose veins of left lower extremity with inflammation Category: Medical Plan: The management of the patient's superficial venous issue will be conservative, requiring no urgent intervention due to the absence of deep vein thrombosis and no significant venous reflux noted.. We did discuss continued conservative measures including compression, elevation and exercise. For recurrent bouts of phlebitis we did talk about use of warm compresses and use of nonsteroidal anti- inflammatories.. Though a concerning family history is acknowledged, the current condition's evaluation does not reflect immediate serious risks. Continued monitoring and potential follow-up will be necessary if symptomatology evolves. Patient was informed and verbally consented to the use of an ambient scribe for clinic note documentation during this visit. Patient Instructions: - Apply warm compresses to the back of the knee as needed for comfort and inflammation relief. - Use nonsteroidal anti-inflammatory medications (Advil, Motrin, Aleve) as directed to manage inflammation. - Wear compression stockings consistently for support. - Monitor the area for any significant changes in size or symptoms. - Return for re-evaluation if the venous issue increases in size or symptoms worsen. Coding Level of Care Code Est Pt Level 3 (55891) Diagnoses Varicose veins of left lower extremity with inflammation I83.12
--- OUTSIDE RECORDS SUMMARY | 2024-07-03 10:51 | XMS_ITS | Data Portability ---
Author Organization [facility], [place] in - [facility] Address [address] [place] [id number] Care Team Providers Care Fire Management Specialist Name Role Phone [facility] Referring [...] None recorded. Lab culture, urine 2023 024 [facility] (Centralized Electronic Ordering - All Locations), Patient Can Go To The Location Of Their Choice, [id number] 18:18:26 [facility]inal[facility] , [facility] [address] [place] [address], [phone], 19:05:08 Referral None recorded. Procedures None recorded. Surgeries None recorded. Imaging None recorded. Medication Orders Bactrim DS 800 mg-160 mg tablet 2023 024 [id number], [address], [place], [phone], 4 15:19:21 Bactrim DS 800 mg-160 mg tablet 2023 Cedric watts [id number], [address], [place], [phone], 15:19:12 Patient TargetsNo targets recorded. Patient InstructionsNo [...] ve Not Available Main - Inst ed [address] [place] [address], [phone], 05/26/2023 19:03:44 05/26/19 24 05/26/2023 urina lysis , dipst ick Nitrite positi ve Not Available Main - Inst [facility] [address] [place], [phone], 05/26/2023 19:03:44 05/26/19 24 05/26/2023 urina lysis , dipst ick Urobilinogen negati ve Not Available Main - Inst ed [address] [place] [address], [phone], 05/26/2023 19:03:44 05/26/19 24 05/26/2023 urina lysis , dipst ick Protein Positi ve Not Available Main - Inst ed [address] [place] [address], [id number], 05/26/2023 19:03:44 05/26/19 24 05/26/2023 urina lysis , dipst ick pH 6.5 Not Available Main - Ins jess[facility] [address] [place] [address], [phone], 05/26/2023 19:03:44 05/26/19 24 05/26/2023 urina lysis , dipst ick Blood Positi ve Not Available Main - Inst [facility] [address] [place] [address], [phone], 05/26/2023 19:03:44 05/26/19 24 05/26/2023 urina lysis , dipst ick Specific [place] 1.015 Not Available Main - Inst[facility] [address] [place] [address], [phone], 05/26/2023 19:03:44 05/26/19 24 05/26/2023 urina lysis , dipst ick Ketone negati ve Not Available Main - Inst [facility] [address] [place] [address], [id number], 05/26/2023 19:03:44 05/26/19 24 05/26/2023 urina lysis , dipst ick Bilirubin negati ve Not Available Main - Inst [facility] [address] [place] [address], [phone], 05/26/2023 19:03:44 05/26/19 24 05/26/2023 urina lysis , dipst ick Glucose negati ve Not Available Main - Inst ed [address] [place] [address], [phone], 05/26/2023 19:03:44 05/26/19 24 05/26/2023 urina lysis , dipst ick Appearance no sedime nts Not Available Main - Inst [facility] [address] [place], [address], 05/26/2023 19:03:44 05/26/19 24 05/26/2023 urina lysis , dipst ick Color orange Not Available Main - [facility] [address] [place], [address], 05/26/2023 19:03:44 Result Notes None recorded. Medical Equipment None Reported. Allergies Allergen ID Allergen Name Allergen Category Reaction Reaction Severity Criticality Documentation Date Start Date Code Code System Note Provider Name and Address Organization Details Recorded Time 1370 Compazine medicatio n Not available Not available Not available 02/26/202412125 6 RxNorm Not Available [facility] - production [...] cm 98.8 [degF] 98 % 98 % 21146.9 6 g 155 mm[Hg] 106 mm[Hg] Not [...] SNOMED-CT Code Diagnosis ICD10 Code Diagnosis Note [id number] NIKITA NIXON MD Main - [facility] [address] [place] [phone] 05/26/2023 15:16:02 05/27/2023 15:30:59 Urinary symptoms [id number] R39.9 Evaluation in the field was performed by my rate examiner colleague, as noted above, I provided real-time [...] acces to her urine culture results at [facility].P t is allergic at Augmentin ( reports tongue swelling and throat closing ) , so I don't feel comfortabl e giving Ceftriaxon e IV . Will start bactrim BID x7 days ( first dose given by rate examiner ). D/C levaquin ( usual dose for [...] worsening CVA tenderness or any other concerns. [id number] Stacy June MD Main - [facility] [address] [place] [phone] 05/29/2023 19:08:38 05/29/2023 21:40:20 Acute urinary tract infection [id number] N39.0 Health Concerns Section Related Observation LastModified by Organization Detai ls LastModified Time None Recorded Concern Status LastModified by Organization Details LastModified Time None Recorded Advance Directives Directive None Recorded Payers Encounter Date Sequence Insurance Name Policy Number Policy Chan Covered Member ID Chan Member ID Guarantor Name 05/26/2023 1 [facility] - DOS ON OR AFTER 2022 - DUAL ELIGIBLE - NURSING HOME OPTIONS AND ONE CARE (MEDICARE REPLACEMENT/ADV ANTAGE - HMO) Basilia Sawyer [id number] Basilia Sawyer 05/29/2023 1 [facility] - DOS ON OR AFTER 2022 - DUAL ELIGIBLE - NURSING HOME OPTIONS AND ONE CARE (MEDICARE REPLACEMENT/ADV ANTAGE - HMO) Basilia Sawyer [id number] Basilia Sawyer Notes Date Note Type Note [...] ...................... ...................... ...................... ...................... ...................... ...................... ......... Manager Field Service Note From Arsalan Rosenbaum: Pt reports winters placed at [facility] on 05/18. Since returning home [...] +NOEMÍ, +NIT, +PRO, +BLO. UC sent to [facility]. Pt treated with bactrim DS. Pt thoroughly educated on catheter care and s/sx that would indicate the ED. Pt to f/u with urology on Sunday. ...................... ...................... ...................... ...................... ...................... ...................... ......... Disposition: Sharon NIXON MD [address] [place] [address],[address], [place], [phone], [employer] 05/26/2023 19:05:44 05/29/2023 text/html [facility] Nurse Triage Notes (Garrett Dias): Reason For Request: Pt is reporting issues lately with low blood pressure>just getting over a UTI and states not feeling right>pulse is going from high to normal>lowest top number reading was 72/73 pulse at 83, which was taken at 5pm BP at 5:20pm / Chief Complaints: Syncope/Dizziness/Ligh theadedness Allergies: Compazine Comments: Seo Manager verified the member's name//address and phone number [...] - Cath removed yesterday. Kyra June MD [address] [place] [address],[address], [place], [phone], [email or web address] 05/29/2023 19:28:59 OBGyn Episode No OBEpisode recorded.
--- OUTSIDE RECORDS SUMMARY | 2024-07-03 10:52 | XMS_ITS | Data Portability ---
Author Organization [facility], , [facility] Address [address] [facility] [place] [address] Assessment Encounter Date Assessment Date Assessment LastModified [...] neg. 2008 009 FAN Hook MD, [address] [facility], [address], [place], [address], 3 03:29:21 orthopedic surgeon referral - biceps tendonitis and tennis elbow 2008 009 FAN Not available 3 03:20:08 physical therapist referral - tendonitis in elbow and shoulder 2008 009 FAN [facility], [address] [place] [address], [facility], [place], [address], 3 03:20:08 Procedures None recorded. Surgeries None recorded. Imaging x-ray, hip - L side, call when ready [address] [facility] ([place], [place]), [address] [place], [address], 3 03:47:47 Medication Orders Percocet 10 mg-650 mg tablet 2008 009 [facility], [address] [place], [address], 4 02:34:28 lisinopril 10 mg tablet 2008 009 [facility], [address] [place], [address], 4 02:58:49 Percocet 10 mg-650 mg tablet 2008 009 [facility], [address] [place], [address], 4 02:32:37 Percocet 10 mg-650 mg tablet 2008 009 FAN [facility], [address] [place], [address], 3 03:20:08 Patient TargetsNo targets recorded. Patient Instructions Encounter Date Encounter Id Patient Instructions Last Modified By Organization Details Last Modified Time 08/24/2008 [id number] Not available 11/28/2010 02:58:13 Reason for Referral [...] diogr am Result Normal ECG Not Available [address], [address], 07/30/2008 16:59:12 07/31/19 09 07/30/2008 urina lysis , dipst ick Glucose Negati ve Not Available [address], [address], 07/30/2008 16:43:42 07/31/19 09 07/30/2008 urina lysis , dipst ick Bilirubin Negati ve Not Available [address], [address], 07/30/2008 16:43:42 07/31/19 09 07/30/2008 urina lysis , dipst ick Ketone Negati ve Not Available [address], [address], 07/30/2008 16:43:42 07/31/19 09 07/30/2008 urina lysis , dipst ick Specific Parkman 1.025 Not Available [address], [address], 07/30/2008 16:43:42 07/31/19 09 07/30/2008 urina lysis , dipst ick Blood Trace Not Available [address], [address], 07/30/2008 16:43:42 07/31/19 09 07/30/2008 urina lysis , dipst ick pH 6.0 Not Available [address], [address], 07/30/2008 16:43:42 07/31/19 09 07/30/2008 urina lysis , dipst ick Protein Negati ve Not Available [address], [address], 07/30/2008 16:43:42 07/31/19 09 07/30/2008 urina lysis , dipst ick Urobilinogen .2 Not Available [address], [address], 07/30/2008 16:43:42 07/31/19 09 07/30/2008 urina lysis , dipst ick Nitrite negati ve Not Available [address], [address], 07/30/2008 16:43:42 07/31/19 09 07/30/2008 urina lysis , dipst ick Leukocytes Negati ve Not Available [address], [address], 07/30/2008 16:43:42 07/14/19 09 07/13/2008 urina lysis , dipst ick Glucose Negati ve Not Available [address], [address], 07/13/2008 17:47:59 07/14/19 09 07/13/2008 urina lysis , dipst ick Bilirubin Negati ve Not Available [address], [address], 07/13/2008 17:47:59 07/14/19 09 07/13/2008 urina lysis , dipst ick Ketone Negati ve Not Available [address], [address], 07/13/2008 17:47:59 07/14/19 09 07/13/2008 urina lysis , dipst ick Specific Parkman 1.020 Not Available [address], [address], 07/13/2008 17:47:59 07/14/19 09 07/13/2008 urina lysis , dipst ick Blood Trace Not Available [address], [address], 07/13/2008 17:47:59 07/14/19 09 07/13/2008 urina lysis , dipst ick pH 6.0 Not Available [address], [address], 07/13/2008 17:47:59 07/14/19 09 07/13/2008 urina lysis , dipst ick Protein Negati ve Not Available [address], [address], 07/13/2008 17:47:59 07/14/19 09 07/13/2008 urina lysis , dipst ick Urobilinogen .2 Not Available [address], [address], 07/13/2008 17:47:59 07/14/19 09 07/13/2008 urina lysis , dipst ick Nitrite negati ve Not Available [address], [address], 07/13/2008 17:47:59 07/14/19 09 07/13/2008 urina lysis , dipst ick Leukocytes Trace Not Available [address], [address], 07/13/2008 17:47:59 07/18/19 09 07/17/2008 CBC WBC 6.3 K/?L 4.6-10 .2 Not Available [address], [address], 07/17/2008 11:58:59 07/18/19 09 07/17/2008 CBC lymph # 1.7 K/?L 0.6-3. 4 Not Available [address], [address], 07/17/2008 11:58:59 07/18/19 09 07/17/2008 CBC mid # 0.3 K/?L 0.0-1. 8 Not Available [address], [address], 07/17/2008 11:58:59 07/18/19 09 07/17/2008 CBC gran # 4.3 K/?L 2.0-6. 9 Not Available [address], [address], 07/17/2008 11:58:59 07/18/19 09 07/17/2008 CBC lymph % 26.4 % 10.0-5 0.0 Not Available [address], [address], 07/17/2008 11:58:59 07/18/19 09 07/17/2008 CBC mid % 4.6 % 0.1-24 .0 Not Available [address], [address], 07/17/2008 11:58:59 07/18/19 09 07/17/2008 CBC gran % 69.0 % 37.0-8 0.0 Not Available [address], [address], 07/17/2008 11:58:59 07/18/19 09 07/17/2008 CBC RBC 4.38 M/?L 4.04-5 .48 Not Available [address], [address], 07/17/2008 11:58:59 07/18/19 09 07/17/2008 CBC HGB 13.4 g/dL 12.2-1 6.2 Not Available [address], [address], 07/17/2008 11:58:59 07/18/19 09 07/17/2008 CBC HCT 38.9 % 37.7-4 7.9 Not Available [address], [address], 07/17/2008 11:58:59 07/18/19 09 07/17/2008 CBC MCV 88.7 ?L 80.0-9 7.0 Not Available [address], [address], 07/17/2008 11:58:59 07/18/19 09 07/17/2008 CBC MCH 30.6 pg 27.0-3 1.2 Not Available [address], [address], 07/17/2008 11:58:59 07/18/19 09 07/17/2008 CBC MCHC 34.4 g/dL 31.8-3 5.4 Not Available [address], [address], 07/17/2008 11:58:59 07/18/19 09 07/17/2008 CBC plt 354.0 K/?L 142.0- 424.0 Not Available [address], [address], 07/17/2008 11:58:59 07/18/19 09 07/17/2008 CBC RDW 13.2 % 11.6-1 4.8 Not Available [address], [address], 07/17/2008 11:58:59 07/18/19 09 07/17/2008 CBC _MPV 0.0 Not Available [address], [address], 07/17/2008 11:58:59 07/18/19 09 07/17/2008 ALT (SGPT ) ALT 25 U/L 30-65 low Not Available [address], [address], 07/17/2008 12:20:50 07/18/19 09 07/17/2008 lipid panel cholesterol 195 mg/dL <200 mg/dL adia eable 200-2 39 mg/dL borde rline high >240 mg/dL high Not Available [address], [address], 07/17/2008 12:20:52 07/18/19 09 07/17/2008 lipid panel triglyceride s 103 mg/dL <150 mg/dL rober l 150-1 99 mg/dL borde rline high 200-4 99 mg/dL high >500 mg/dL very high Not Available [address], [address], 07/17/2008 12:20:52 07/18/19 09 07/17/2008 lipid panel direct HDL 34 mg/dL <40 mg/dL - major risk for CHD >60 mg/dL - negat angelo risk for CHD Not Available [address], [address], 07/17/2008 12:20:52 07/18/19 09 07/17/2008 lipid panel [...] r IS not jacob ricardo. Not Available [address], [address], 07/17/2008 12:20:52 07/18/19 09 07/17/2008 basic metab olic panel glucose 103 mg/dL 70-100 high clini kirsten refer ence range s fasti ng gluco se <100 mg/dL = rober l fasti ng gluco se; 100-1 25 mg/dL = ifg (impa ired fasti ng gluco se); >126 mg/dL = provi siona l diagn osis of diabe nahum (conf irm by repea t testi ng on A diffe day.) Not Available [address], [address], 07/17/2008 12:20:54 07/18/19 09 07/17/2008 basic metab olic panel BUN 10 mg/dL 7-18 Not Available [address], [address], 07/17/2008 12:20:54 07/18/19 09 07/17/2008 basic metab olic panel creatinine 0.8 mg/dL 0.8-1. 3 Not Available [address], [address], 07/17/2008 12:20:54 07/18/19 09 07/17/2008 basic metab olic panel B/C 12.5 ratio Not Available [address], [address], 07/17/2008 12:20:54 07/18/19 09 07/17/2008 basic metab olic panel GFR 89.4 mL/mi n recom inez d GFR by the natio nal kidne y found ation >60 mL/mi n/1.7 3M2 - rober l <60 mL/mi n/1.7 3M2 - chron ic kidne y disea se <15 mL/mi n/1.7 3M2 - kidne y failu re Not Available [address], [address], 07/17/2008 12:20:54 07/18/19 09 07/17/2008 basic metab olic panel GFR - if 102.8 mL/mi n for afric an ameri can patie nts: resul ts multi plied by 1.21 Not Available [address], [address], 07/17/2008 12:20:54 07/18/19 09 07/17/2008 basic metab olic panel sodium 139 mmol/ L 136-14 5 Not Available [address], [address], 07/17/2008 12:20:54 07/18/19 09 07/17/2008 basic metab olic panel potassium 4.1 mmol/ L 3.5-5. 1 Not Available [address], [address], 07/17/2008 12:20:54 07/18/19 09 07/17/2008 basic metab olic panel chloride 101 mmol/ L 96-107 Not Available [address], [address], 07/17/2008 12:20:54 07/18/19 09 07/17/2008 basic metab olic panel _anion gap 13.0 Not Available [address], [address], 07/17/2008 12:20:54 07/18/19 09 07/17/2008 basic metab olic panel CO2 25 mmol/ L 21-32 Not Available [address], [address], 07/17/2008 12:20:54 07/18/19 09 07/17/2008 basic metab olic panel calcium 9.1 mg/dL 8.5-10 .3 Not Available [address], [address], 07/17/2008 12:20:54 07/18/19 09 07/17/2008 thyro id stimu latin g hormo ne (TSH) TSH 0.41 uIU/m L 0.50-6 .00 low the ameri can colle ge of endoc rinol ogy and ameri can thyro id assoc iatio n recom mend goal TSH value s betwe en 1.0-2 .5 mIU/m L. Not Available [address], [address], 07/17/2008 12:40:44 08/05/19 09 08/05/2008 ESR sed rate 16.0 0.0-15 .0 high Not Available [address], [address], 08/05/2008 10:47:19 08/05/19 09 08/05/2008 thyro id stimu latin g hormo ne (TSH) TSH 0.12 uIU/m L 0.50-6 .00 low the ameri can colle ge of endoc rinol ogy and ameri can thyro id assoc iatio n recom mend goal TSH value s betwe en 1.0-2 .5 mIU/m L. Not Available [address], [place], [address], 08/05/2008 11:24:23 08/05/19 09 08/05/2008 prote in, total and prote in elect ropho resis protein, total 6.9 g/dL 6.2-8. 3 normal Not Available [facility] [place] [facility] [address], [address], 08/05/2008 14:28:29 08/05/19 09 08/05/2008 prote in, total and prote in elect ropho resis albumin 3.9 g/dL 3.5-4. 7 normal Not Available [facility] [address], [address], 08/05/2008 14:28:29 08/05/19 09 08/05/2008 prote in, total and prote in elect rop resis miqru-4-aynv ulins 0.3 g/dL 0.1-0. 3 normal Not Available [facility] [address], [place], [address], 08/05/2008 14:28:29 08/05/19 09 08/05/2008 prote in, total and prote in elect ropho resis fopyr-4-auun ulins 0.7 g/dL 0.5-1. 0 normal Not Available [facility] [address], [address], 08/05/2008 14:28:29 08/05/19 09 08/05/2008 prote in, total and prote in elect ropho resis beta globulins 1.0 g/dL 0.8-1. 4 normal Not Available [facility] [address], [address], 08/05/2008 14:28:29 04/07/20 09 08/05/2008 prote in, total and prote in elect ropho resis gamma globulins 1.0 g/dL 0.6-1. 6 normal Not Available [facility] [place] [facility] [address], [place], [address], 08/05/2008 14:28:29 08/05/19 09 08/05/2008 prote in, total and prote in elect [facility] interpretati on ro[place] rn Not Available [facility] [place] [facility] [address], [place], [address], 08/05/2008 14:28:29 08/05/19 09 08/05/2008 rheum atoid facto r rheumatoid factor 27.7 IU/mL 0.0-16 .0 high <16.0 IU/mL - negat angelo 16.0- 19.9 IU/mL - equiv ocal >20.0 IU/mL - posit angelo Not Available [address], [address], 08/05/2008 16:24:06 08/05/19 09 08/05/2008 YOUNG YOUNG screen 1.29 0.00-0 .39 high YOUNG=s ample [facility] karthik rn and titer . <0.4 -nega tive 0.40 - 1.10 -equi vocal >1.10 -posi tive Not Available [address], [address], 08/05/2008 16:24:06 08/05/19 09 08/06/2008 RPR RPR NON-RE ACTIVE nonrea ctive Not Available [address], [address], 08/06/2008 10:56:20 08/05/19 09 08/07/2008 lyme disea se igg, igm borrelia burgdorferi Ab 0.20 <0.90 <=0.9 0 - negat angelo 0.91 - 1.09 - equiv ocal >=1.1 0 - posit angelo Not Available [facility] [address] [facility], [place], [address], 08/07/2008 10:21:55 08/05/1908/07/2008 test autho rizat ion test(s) ordered on requisition YOUNG SCREEN IFA W/REFL TITER IFA Not Available [facility] [address], [address], 08/08/2008 07:40:18 08/05/19 09 08/07/2008 test autho rizat ion test code: 84962 Not Available [facility] [address], [address], 08/08/2008 07:40:18 08/05/19 09 08/07/2008 test autho rizat ion client contact: DAVID Starks Not Available [facility] [address], [place], [address], 08/08/2008 07:40:18 08/05/19 09 08/07/2008 test autho [...] signa ture: __ Not Available [facility] [place] [facility] [address], [place], [address], 08/08/2008 07:40:18 08/05/19 09 08/07/2008 YOUNG scree n, ifa YOUNG screen POSITI VE negati ve abnormal Not Available [facility] [place] [facility] [address], [place], [address], 08/08/2008 07:40:18 08/05/19 09 08/07/2008 YOUNG scree n, ifa YOUNG pattern SPECKL ED abnormal Not Available [facility] [place] [facility] [address], [place], [address], 08/08/2008 07:40:18 08/05/19 09 08/07/2008 YOUNG scree n, ifa antinuclear antibodies 1:40 titer high refer ence range : <1:40 negat angelo 1:40 - 1:80 low antib adrienne level >1:80 eleva jessica antib adrienne level Not Available [facility] [place] [facility] [address], [place], [address], 08/08/2008 07:40:18 08/05/19 09 08/10/2008 vitam in B12 vitamin B12 564 pg/mL 230-10 50 Not Available [address], [address], 08/10/2008 08:37:36 08/05/19 09 08/10/2008 folat e folate 12 NG/mL 3-16 Not Available [address], [address], 08/10/2008 08:37:36 08/08/19 09 08/06/2008 imagi ng/di agnos tic resul t No observ ation record ed. [facility] [address] [facility], [place], [address], 11/22/2012 03:18:23 08/15/19 09 08/12/2008 EEG No observ ation record ed. [facility] [address] [place], [address], 11/22/2012 03:20:37 04/27/20 09 04/26/2009 x-ray , hip No observ ation record ed. [facility] ([place], [place]) [address] [facility], [place], [address], 11/22/2012 03:47:54 07/27/19 17 07/26/2016 shoul tyler [...] DEBRA BALLESTEROS MD 2016 07:32 PM [email or web address] [facility] [address] [place], [address], 07/26/2016 20:25:31 Result Notes None recorded. Problems Name Problem SNOMED Code Status Onset Date Resolution Date Notes Provider Name and Address Organization Details Recorded Time Headache 20076940 Active 2008 Not Available [facility] 3 03:08:46 Psychogeni c headache 73664566 Active Not Available [facility] 3 03:08:46 Rotator cuff shoulder syndrome and allied disorders Completed 03/19/2013 Not Available [facility] 3 02:03:33 Cough 36908549 Completed 200603/19/2013 Not Available [facility] 3 02:01:06 Viral disease 75396934 Completed 199903/19/2013 Not Available [facility] 3 02:03:22 Fever 066468641 Completed 200603/19/2013 Not Available [facility] 3 02:02:41 Diarrhea 45601148 Completed 200703/19/2013 Not Available [facility] 3 02:02:14 Benign essential hypertensi on 1435943 Active 2006 Not Available [facility] 3 03:08:46 Conduction disorder of the heart 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 Active 1999 Not Available [facility] 3 03:08:46 Tobacco user 797908319 Active 2006 Not Available [facility] 3 03:08:46 Hip pain 61623015 Completed 03/19/2013 Not Available [facility] 3 02:01:32 Disorder of soft tissue 38551152 Active 2007 Not Available [facility] 3 03:08:46 Spinal stenosis 03894156 Active 1999 Not Available [facility] 3 03:08:46 Syncope and collapse 447544160 Active Not Available [facility] 3 03:08:46 Cluster headache 622296207 Active Not Available [facility] 3 03:08:46 Sciatica 64289671 Active 2006 Not Available [facility] 3 03:08:46 Postoperat angelo hypothyroi dism 67606551 Active 2008 Not Available [facility] 3 03:08:46 Pain in elbow 18577971 Completed 06/17/2008 Not Available [facility] 3 03:08:46 Finding by method 951568618 Completed 199903/19/2013 Not Available [facility] 3 02:01:54 Chest pain 40897343 Completed 03/19/2013 Not Available [facility] 3 02:01:45 Lumbar sprain 277806019 Completed 200603/19/2013 Not Available [facility] 3 02:03:36 Low back pain 958426013 Active 2006 Not Available [facility] 3 03:08:46 Dysuria 45340619 Completed 03/19/2013 Not Available [facility] 3 02:01:59 Backache 438663418 Completed 199903/19/2013 Not Available [facility] 3 02:01:12 Hypothyroi dism 82160969 Active 2006 Not Available [facility] 3 03:08:46 Mononeurit is 18558642 Active 2008 Not Available [facility] 3 03:08:46 Pain in wrist 49537350 Completed 03/19/2013 Not Available [facility] 3 02:02:22 Acute bronchitis 50020823 Completed 200603/19/2013 Not Available [facility] 3 02:01:35 Primary fibromyalg ia syndrome 45238318 Active 2007 Not Available [facility] 3 03:08:46 Acquired hypothyroi dism 948159489 Active Not Available [facility] 3 03:08:46 Problem Notes None recorded. Procedures Surgical History None recorded. Imaging Results Imaging Date Name Status LastModified by Organiz [facility] Details LastModified Time 08/06/2008 imaging/diagn ostic result completed [facility] [address] [place], [address], 11/22/2012 03:18:23 08/12/2008 EEG completed [facility] [address] [place], [address], 11/22/2012 03:20:37 04/26/2009 x-ray, hip completed [address] [place], [address], 11/22/2012 03:47:54 07/26/2016 shoulder com lt completed [email or web address] [facility] [address] [facility], [place], [address], 07/26/2016 20:25:31 Procedure Notes None recorded. Medical Equipment None Reported. Allergies Allergen ID Allergen Name Allergen Category Reaction Reaction Severity Criticality Documentation Date Start Date Code Code System Note Provider Name and Address Organization Details Recorded Time 3262 Compazine medicatio n other severe Not available 06/20/200855331 6 RxNorm Not Available [facility] 1 06:05:20 3263 verapamil medicatio n other severe Not available 06/20/2008 50565 RxNorm Not Available [facility] 1 06:05:20 Medications Name Sig Start Date [...] Address Organization Details Last Updated DateTime 08/24/2008 06555.9434 54 g 126 mm[Hg] 98 mm[Hg] Aundrea Benson [facility] 08/24/2008 17:50:09 Date Recorded Body height Body weight Body mass index (BMI) Heart rate Systolic blood pressure Diastolic blood pressure Provider Name and Address Organization Details Last Updated DateTime 9 165.1 cm 15035.5 13669 g 26 kg/m2 98 /min 130 mm[Hg] 110 mm[Hg] Yumiko Lizamamunds [facility] 9 13:10:36 Date Recorded Body height Body weight Body mass index (BMI) Systolic blood pressure Diastolic blood pressure Provider Name and Address Organization Details Last Updated DateTime 04/26/2009 165.1 cm 01157.46 8709 g 26.9 kg/m2 136 mm[Hg] 88 mm[Hg] Nhi Leyva [facility] 9 10:56:28 Social History Question Answer Notes LastModified by Organizat ion Details LastModified Time Tobacco Smoking Status Current Every Day Smoker 3 cigs per day, $8 a pack Not Available [facility] 09/22/2010 02:07:28 What Is Your Occupation? [employer] Information not available 03/16/2011 How Many Children [...] SNOMED-CT Code Diagnosis ICD10 Code Diagnosis Note [id number] , [facility], OFFICE [address] [place] [address] 03/02/2000 09:30:00 05/20/2008 02:02:29 [id number] [facility] , [facility] [address] [place] [address] 03/02/2000 10:00:00 05/20/2008 02:02:29 [id number] [facility], OFFICE [address] [place] [address] 03/12/2000 11:45:00 05/20/2008 02:02:29 [id number] , [facility], [address] [place] [address] 04/02/2000 10:45:00 05/20/2008 02:02:29 [id number] , [facility], [address] [place] [address] 04/10/2000 17:15:00 05/20/2008 02:02:29 [id number] , [facility], [address] [facility] [place] [address] 08/13/2006 15:29:33 08/13/2006 16:24:59 [id number] , [facility], [address] [facility] [place] [address] 08/31/2006 09:10:43 08/31/2006 10:17:51 [id number] , [facility], [address] [facility] [place] [address] 09/03/2006 09:05:33 09/03/2006 10:37:55 [id number] LAB - [facility] [address] [facility] [place] [address] 10/02/2006 13:24:17 10/02/2006 13:27:17 [id number] , [facility], [address] [facility] [place] [address] 01/16/2007 15:41:02 01/16/2007 16:49:24 [id number] [facility] , [facility] [address] [place] [address] 02/27/2007 10:52:59 02/28/2007 08:35:45 [id number] , [facility], OFF[address] [facility] [place] [address] 02/27/2007 09:28:57 03/06/2007 15:02:58 [id number] , [facility], [address] [facility] [place] [address] 03/13/2007 13:26:21 03/27/2007 15:02:33 [id number] LAB - [facility] [address] [facility] [place] [address] 03/13/2007 14:26:40 03/13/2007 14:50:06 [id number] , [facility], [facility] [address] [facility] [place] [address] 04/02/2007 15:01:28 05/20/2008 02:02:29 [id number] [facility], OFFICE [address] [place] [address] 09/08/2007 10:42:19 05/20/2008 02:02:29 [id number] , [facility], [address] [facility] [place] [address] 09/10/2007 14:51:21 05/20/2008 02:02:[id number] [facility], [address] [facility] [place] [address] 09/17/2007 15:20:28 05/20/2008 02:02:29 [id number] [facility], OFFICE [address] [place] [address] 09/19/2007 14:00:26 05/20/2008 02:02:29 [id number] LAB - [facility] [address] [facility] [place] [address] 09/18/2007 07:38:42 09/18/2007 07:39:14 [id number] LAB - [address] [address] 09/19/2007 13:53:09 09/19/2007 13:53:15 [id number] LAB - [facility] [address] [place] [address] 09/20/2007 07:17:42 09/20/2007 07:17:[id number] [facility], OFF[address] [facility] [place] [address] 09/26/2007 13:48:03 10/23/2007 08:01:28 [id number] [facility], OFF[address] [place] [address] 04/11/2008 14:47:55 05/20/2008 02:02:29 [id number] [facility], OFFICE [address] [place] [address] 06/15/2008 16:34:40 07/01/2008 08:34:00 [id number] [facility], OFFICE [address] [place] [address] 06/20/2008 11:33:33 06/25/2008 11:01:19 [id number] , [facility], [address] [facility] [place] [address] 07/13/2008 17:32:48 07/15/2008 12:23:33 [id number] , [facility], [address] [facility] [place] [address] 07/28/2008 10:19:50 07/29/2008 10:21:26 [id number] [facility], OFFICE [address] [facility] [place] [place] [address] 07/30/2008 15:40:22 07/31/2008 09:28:04 [id number] , [facility], OFFICE [address] [facility] [place] [place] [address] 08/24/2008 17:32:03 08/26/2008 13:55:06 [id number] [facility], OFFICE [address] [facility] [facility] [place] [address] 11/17/2008 12:57:26 11/23/2008 15:36:35 [id number] [facility] [address] [facility] [place] [address] 07/17/2008 06:54:59 07/17/2008 07:18:00 [id number] LAB - [address] [address] 08/04/2008 14:04:53 08/04/2008 14:04:58 [id number] LAB - [address] [address] 08/04/2008 00:00:00 02/25/2009 02:00:52 [id number] [facility], OFFICE [address] [facility] [place] [address] 04/26/2009 10:16:13 04/28/2009 14:19:32 [id number] [facility] , C [address] [facility] [place] [address] 04/26/2009 11:34:40 05/03/2009 14:24:49 Health Concerns Section Related Observation LastModified by Organization Caridadai ls LastModified Time None Recorded Concern Status LastModified by Organization Details LastModified Time None Recorded Advance Directives Directive None Recorded Payers Encounter Date Sequence Insurance Name Policy Number Policy Chan Covered Member ID Chan Member ID Guarantor Name 08/04/2008 1 [facility] PLAN (MEDICAID HMO) Basilia Breenehan [id number] Basilia Meek [employer] 08/24/2008 1 [facility] PLAN (MEDICAID HMO) Basilia Digna [id number] Basilia Meek D[employer] 11/17/2008 1 *SELF PAY* Shashi fishifer R [employer]igna 04/26/2009 1 *SELF PAY* Shashi nnifer R [employer]ign[employer] 04/26/2009 1 *SELF PAY* Shashi nnifer R [employer] Notes Date Note Type Note Provider Name and Address Organization Details Recorded Time 04/26/2009 text/html InitializeSe ction( this.Rusty ferrera, 1 ); this.Kalpesh ferrera(true)HPI None recorded. Charly Velásquez MD [address] [place] [address], [id number], [facility] 04/27/2009 21:49:52 OBGyn Episode No OBEpisode recorded.
== END 2024-07-03 09:50 | disposition home or self-care (01) ==
PROVIDERS: PCP Physician Assistant; Visit Provider Surgery Vascular Surgery
DX: I83.12 Varicose veins of left lower extremity with inflammation (principal)
CPT/HCPCS: 99213

== ENCOUNTER → 2024-07-03 09:33 | Outpatient (BNVA) | payer OTHER, SELFPAY | PROVIDERS: PCP Physician Assistant; Visit Provider Surgery Vascular Surgery | DX: I83.12 Varicose veins of left lower extremity with inflammation (principal) | CPT/HCPCS: 99212 ==

== ENCOUNTER 2024-07-16 13:16 | Outpatient (REF) | payer OTHER, SELFPAY ==
[2024-07-16 15:58] LABS: Folate 9.9 ng/mL (> or = 4.0); Vitamin B12 333 pg/mL (200-900)
[2024-07-16 17:24] LABS: Alanine Aminotransferase 19 U/L (0-31); Albumin Level 4.4 g/dL (3.5-5.0); Alkaline Phosphatase 44 U/L (39-117); Anion Gap 13 (12-20); Aspartate Amino Transferase 19 U/L (5-31); Bilirubin Total 0.3 mg/dL (0.0-1.0); Blood Urea Nitrogen 12 mg/dL (9-16); Carbon Dioxide 26 mmol/L (22-29); Chloride 103 mmol/L (96-108); Estimated Glomerular Filt Rate > 60; Glucose Random 103 mg/dL (60-115); Phosphorus 3.4 mg/dL (2.7-4.5); Potassium 4.6 mmol/L (3.3-5.1); Sodium 137 mmol/L (135-145); Total Protein 7.8 g/dL (6.5-8.0)
[2024-07-16 17:41] LABS: TSH reflex Free T4 1.42 uIU/mL (0.32-4.0); Vitamin D 25-OH Total 37.1 ng/mL (>30)
== END 2024-07-16 13:17 | disposition home or self-care (01) ==
LOC: HO.LAB 13:16
PROVIDERS: PCP Physician Assistant; Visit Provider Physician Assistant
DX: E83.52 Hypercalcemia (principal); E21.3 Hyperparathyroidism, unspecified; E03.8 Other specified hypothyroidism; E06.3 Autoimmune thyroiditis; E53.8 Deficiency of other specified B group vitamins; E03.9 Hypothyroidism, unspecified
CPT/HCPCS: 36415; 80053; 82306; 82607; 82746; 84100; 84443

== ENCOUNTER 2024-07-23 08:33 | Outpatient (AMB) | payer OTHER, SELFPAY ==
--- NOTE | 2024-07-23 08:34 | MHC.OFFVIS ---
Intake Visit Reasons: Post-Op follow-Up (gastro) r/s 06/09 Intake Note: Basilia presents in the office as a follow up. CC: States that she wants results to EGD and COLO - she also had a GI series that she would also like results of. She states that she is not having any changes since the last time. 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: No Allergies amoxicillin [From AUGMENTIN] Allergy (Severe, Verified 07/03/24 09:36) Anaphylaxis clavulanic acid [From AUGMENTIN] Allergy (Severe, Verified 07/03/24 09:36) Anaphylaxis banana Allergy (Unknown, Verified 07/03/24 09:36) Unknown ketorolac [From Toradol] Allergy (Unknown, Verified 07/03/24 09:36) Anaphylaxis kiwi Allergy (Unknown, Verified 07/03/24 09:36) Unknown prochlorperazine [From COMPAZINE] Allergy (Unknown, Verified 07/03/24 09:36) INVOLUNTARY SPASMS [id number]-[id number] Reductase Inhibitor Allergy (Verified 07/03/24 09:36) Muscle cramps HPI Comments Details: This is a 53 y.o with PMH of Billy's, VERONIKA 3 s/p LEEP 2022, peripheral neuropathy, chronic intermittent electrolyte abnl who is here for second opinion for GI issues as below. Previously July [facility] pt. Pt reports x2 years hx of constant abd pain that radiates to her left upper quadrant and then wraps around to her spine. Pain gets worse with eating sometimes goes up to her L shoulder as well. Assoc with bloating. Manages with sticking to meal replacement shakes. Bowel movements are now harder to pass and have become pencil thin. BMs without blood but can look dark . Also having night sweats and fevers with TMax 103 that tend to have a cyclical pattern over the last 6 months. Has noticed a red macular rash on her palms with this which is nonpruritic and nontender. In the last 6 months symptoms have worsened. Pt also reports fluctuating weight loss. Has been to the ER x2 in Apr - CT Abd/pel on 05/18 was suggestive of perineal abscess however on EUA there as no abscess aspirated and instead pt was noted to have a possible defect in muscular layer of the rectovaginal septum measuring about 2.[address] also showed small bowel wall thickening which is of unclear significance. Last colo > 5years ago. Pt also with hx of PVCs and reports undergoing further cardiac work up through her sound tester at [facility]. Notes N/A at this time. Fam hx: Father: panc ca - however pt unsure of age of dx EGD/colo 05/01/24: 1. Normal esophagus (biopsy) 2. Gastritis (biopsy) 3. Duodenitis (biopsy) 4. Normal jejunal mucosa (biopsy) 5. Normal colon and terminal ileum mucosa (biopsy) 6. Internal and external hemorrhoids 7. Diverticulosis Path: A. Jejunum, proximal, biopsy: Small bowel and duodenal mucosa with preserved villi and no specific change. B. Duodenum, biopsy: Duodenal mucosa with preserved villi and no specific change. C. Gastric antrum, lesser curvature, biopsy: Gastric antral/body mucosa with focal minimal chronic inactive inflammation; negative for H. pylori, intestinal metaplasia and dysplasia. D. Gastric antrum, greater curvature, biopsy: Gastric antral/body mucosa with focal minimal chronic inactive inflammation; negative for H. pylori, intestinal metaplasia and dysplasia. E. Gastric incisura, biopsy: Gastric antral/body mucosa with focal minimal chronic inactive inflammation; negative for H. pylori, intestinal metaplasia and dysplasia. F. Gastric body, lesser curvature, biopsy: Gastric body mucosa with minimal chronic inactive gastritis; negative for H. pylori, intestinal metaplasia and dysplasia. G. Gastric body, greater curvature, biopsy: Gastric body mucosa with focal minimal chronic inactive inflammation; negative for H. pylori, intestinal metaplasia and dysplasia. H. Esophagus, lower, biopsy: Squamous mucosa with no specific change; no columnar mucosa present. I. Esophagus, middle, biopsy: Squamous mucosa with no specific change; no columnar mucosa present. J. Colon, right, biopsy: Colonic mucosa with lymphoid aggregate and no specific change. K. Colon, left, biopsy: Colonic mucosa with no specific change. 07/23/24: Here for virtual follow up. Describes difficulty belching and has to bend over, splint etc for a good 15-20 mins before she can burp and then feels better with the sensation of abd distention and bloating. 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 Also continues with chronic diarrhea. Bx results reviewed - normal. She remains worried about underlying malabsorption, reports previous stool testing was done when she was on a limited diet after an illness so will repeat these. [facility] Medical History Nhea-Danlos syndrome Neuropathy Thrombophlebitis of left leg Rectocele Elevated cholesterol History of cervical cancer Family history of colon cancer Nicotine dependence, cigarettes, uncomplicated HTN (hypertension) Family history of pancreatic cancer COPD (chronic obstructive pulmonary disease) Dysphagia Vitamin D deficiency Hypothyroidism (~1999) Surgical History History of loop electrical excision procedure (LEEP) History of endometrial ablation History of tonsillectomy (~1976) History of History of throat surgery (~2011) Family History Mother Alzheimer's dementia CVD (cardiovascular disease) Maternal Grandfather Pancreatic cancer Social History Household Members: Children Household Members Other:: lives at home with 20-year-old daughter Housing: Apartment Do you presently have visiting nurse or other home services: No Alcohol intake: never Comment: vaginal area Patient Tobacco Use Status: Former Tobacco user Tobacco use type: Cigarette Cigarette Packs Per Day: 0.5 Cigarettes Per Day: 5 Years Smoked: (onset 11, 1ppd x 40yrs, now 1/4ppd, 40pyh) e-Cigarette/Vaping Use: Never Used Second Hand Smoke Exposure: Yes Substance Use Type: Marijuana Advance Directives Date on File: 09/11/22 service: No Current occupational status: disabled Cognitive needs: No Hearing needs: No Vision needs: No Female Reproductive History Menstrual Age of Menarche: 11 Review of Systems Const All systems reviewed & are unremarkable except as noted in HPI and below Physical Exam Vital Signs: Video visit: No acute distress No icterus noted No facial asymmetry Speaking in full sentences Telehealth Telehealth Telehealth Platform: [facility] Location of provider rendering services: practice address Location of patient: address on file Patient Identification confirmed using: Name, : Yes Telehealth method: video Patient verbally consented to treatment: Yes Patient verbally consented to billing insurance company: Yes Patient informed of any privacy concerns related to visit: Yes Minutes spent on Phone/Video with Pt.: 21 Assessment & Plan Assessment & Plan (1) Thickened small bowel: Code(s): K63.9 - Disease of intestine, unspecified Category: Medical (2) Change in bowel habit: Code(s): R19.4 - Change in bowel habit Category: Medical (3) Chronic abdominal pain: Code(s): R10.9 - Unspecified abdominal pain; G89.29 - Other chronic pain Category: Medical (4) Bloating symptom: Code(s): R14.0 - Abdominal distension (gaseous) Category: Medical (5) Cricopharyngeal achalasia: Code(s): K22.0 - Achalasia of cardia Category: Medical (6) Family history of pancreatic cancer: Comment: Father Code(s): Z80.0 - Family history of malignant neoplasm of digestive organs Category: Medical Plan Main issues today: bloating/difficulty initiating burp. 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 Reviewed options including referral to specialist in [place] for botox inj vs myotomy. Pt prefers to start off with EGD with dilation of cricopharyngeus first. Secondly: question of small bowel thickening. Normal jejunum and T.I noted on endoscopic w/up and bx. Given ongoing bowel sx will proceed with VCE for luminal eval of small bowel. Will also repeat studies for malabsorption - pt mentions recent low phos levels. Did review that primarily driven by renal reabsorption but stool studies will help clarify. Prev issues: fam hx of panc ca - MRI abd with panc protocol 2023 with normal pancreas. No further imaging needed at this time. Plan: - VCE to be scheduled in 2-3 weeks. Will get a patency capsule prior to VCE. - EGD to be booked with matilde wood - Stool studies ordered Follow up after egd Orders: Orders Lactoferrin, Fecal, Quant. Today K22.0 - Achalasia of cardia Pancreatic Elastase-1 Today K22.0 - Achalasia of cardia Fecal Fat Qualitative Today K22.0 - Achalasia of cardia Calprotectin, Fecal Today K22.0 - Achalasia of cardia Other Ref Test - Misc Today K63.9 - Disease of intestine, unspecified, R19.4 - Change in bowel habit Coding Level of Care Code Tele Est Pt Level 5 (11546) Complex EM visit Add On G2211 Diagnoses Thickened small bowel K63.9 Change in bowel habit R19.4 Chronic abdominal pain R10.9; G89.29 Bloating symptom R14.0 Cricopharyngeal achalasia K22.0 Family history of pancreatic cancer Z80.0
--- OUTSIDE RECORDS SUMMARY | 2024-07-23 08:58 | XMS_ITS | Data Portability ---
Author Organization [facility] ([place], [place]), , [facility] Address [address] [facility] [place] [id number] Assessment Encounter Date Assessment Date Assessment LastModified [...] neg. 2008 009 FAN Hook MD, [address] [facility], [address], [place], [address], 3 03:29:21 orthopedic surgeon referral - biceps tendonitis and tennis elbow 2008 009 FAN Not available 3 03:20:08 physical therapist referral - tendonitis in elbow and shoulder 2008 009 [facility], [address] [place] [address], [facility], [place], [address], 3 03:20:08 Procedures None recorded. Surgeries None recorded. Imaging x-ray, hip - L side, call when ready 2008 009 [facility], [address] [place], [address], 3 03:47:47 Medication Orders Percocet 10 mg-650 mg tablet 2008 009 [facility], [address] [place], [address], 4 02:34:28 lisinopril 10 mg tablet 2008 009 [facility], [address] [place], [address], 4 02:58:49 Percocet 10 mg-650 mg tablet 2008 009 [facility], [address] [place], [address], 4 02:32:37 Percocet 10 mg-650 mg tablet 2008 009 FAN [facility], [address] [place], [address], 3 03:20:08 Patient TargetsNo targets recorded. Patient Instructions Encounter Date Encounter Id Patient Instructions Last Modified By Organization Details Last Modified Time 08/24/2008 [id number] Not available 11/28/2010 02:58:13 Reason for Referral [...] diogr am Result Normal ECG Not Available [address], [address], 07/30/2008 16:59:12 07/31/19 09 07/30/2008 urina lysis , dipst ick Glucose Negati ve Not Available [address], [address], 07/30/2008 16:43:42 07/31/19 09 07/30/2008 urina lysis , dipst ick Bilirubin Negati ve Not Available [address], [address], 07/30/2008 16:43:42 07/31/19 09 07/30/2008 urina lysis , dipst ick Ketone Negati ve Not Available [address], [address], 07/30/2008 16:43:42 07/31/19 09 07/30/2008 urina lysis , dipst ick Specific [place] 1.025 Not Available [address], [address], 07/30/2008 16:43:42 07/31/19 09 07/30/2008 urina lysis , dipst ick Blood Trace Not Available [address], [address], 07/30/2008 16:43:42 07/31/19 09 07/30/2008 urina lysis , dipst ick pH 6.0 Not Available [address], [address], 07/30/2008 16:43:42 07/31/19 09 07/30/2008 urina lysis , dipst ick Protein Negati ve Not Available [address], [address], 07/30/2008 16:43:42 07/31/19 09 07/30/2008 urina lysis , dipst ick Urobilinogen .2 Not Available [address], [address], 07/30/2008 16:43:42 07/31/19 09 07/30/2008 urina lysis , dipst ick Nitrite negati ve Not Available [address], [address], 07/30/2008 16:43:42 07/31/19 09 07/30/2008 urina lysis , dipst ick Leukocytes Negati ve Not Available [address], [address], 07/30/2008 16:43:42 07/14/19 09 07/13/2008 urina lysis , dipst ick Glucose Negati ve Not Available [address], [address], 07/13/2008 17:47:59 07/14/19 09 07/13/2008 urina lysis , dipst ick Bilirubin Negati ve Not Available [address], [address], 07/13/2008 17:47:59 07/14/19 09 07/13/2008 urina lysis , dipst ick Ketone Negati ve Not Available [address], [address], 07/13/2008 17:47:59 07/14/19 09 07/13/2008 urina lysis , dipst ick Specific [place] 1.020 Not Available [address], [address], 07/13/2008 17:47:59 07/14/19 09 07/13/2008 urina lysis , dipst ick Blood Trace Not Available [address], [address], 07/13/2008 17:47:59 07/14/19 09 07/13/2008 urina lysis , dipst ick pH 6.0 Not Available [address], [address], 07/13/2008 17:47:59 07/14/19 09 07/13/2008 urina lysis , dipst ick Protein Negati ve Not Available [address], [address], 07/13/2008 17:47:59 07/14/19 09 07/13/2008 urina lysis , dipst ick Urobilinogen .2 Not Available [address], [address], 07/13/2008 17:47:59 07/14/19 09 07/13/2008 urina lysis , dipst ick Nitrite negati ve Not Available [address], [address], 07/13/2008 17:47:59 07/14/19 09 07/13/2008 urina lysis , dipst ick Leukocytes Trace Not Available [address], [address], 07/13/2008 17:47:59 07/18/19 09 07/17/2008 CBC WBC 6.3 K/?L 4.6-10 .2 Not Available [address], [address], 07/17/2008 11:58:59 07/18/19 09 07/17/2008 CBC lymph # 1.7 K/?L 0.6-3. 4 Not Available [address], [address], 07/17/2008 11:58:59 07/18/19 09 07/17/2008 CBC mid # 0.3 K/?L 0.0-1. 8 Not Available [address], [address], 07/17/2008 11:58:59 07/18/19 09 07/17/2008 CBC gran # 4.3 K/?L 2.0-6. 9 Not Available [address], [address], 07/17/2008 11:58:59 07/18/19 09 07/17/2008 CBC lymph % 26.4 % 10.0-5 0.0 Not Available [address], [address], 07/17/2008 11:58:59 07/18/19 09 07/17/2008 CBC mid % 4.6 % 0.1-24 .0 Not Available [address], [address], 07/17/2008 11:58:59 07/18/19 09 07/17/2008 CBC gran % 69.0 % 37.0-8 0.0 Not Available [address], [address], 07/17/2008 11:58:59 07/18/19 09 07/17/2008 CBC RBC 4.38 M/?L 4.04-5 .48 Not Available [address], [address], 07/17/2008 11:58:59 07/18/19 09 07/17/2008 CBC HGB 13.4 g/dL 12.2-1 6.2 Not Available [address], [address], 07/17/2008 11:58:59 07/18/19 09 07/17/2008 CBC HCT 38.9 % 37.7-4 7.9 Not Available [address], [address], 07/17/2008 11:58:59 07/18/19 09 07/17/2008 CBC MCV 88.7 ?L 80.0-9 7.0 Not Available [address], [address], 07/17/2008 11:58:59 07/18/19 09 07/17/2008 CBC MCH 30.6 pg 27.0-3 1.2 Not Available [address], [address], 07/17/2008 11:58:59 07/18/19 09 07/17/2008 CBC MCHC 34.4 g/dL 31.8-3 5.4 Not Available [address], [address], 07/17/2008 11:58:59 07/18/19 09 07/17/2008 CBC plt 354.0 K/?L 142.0- 424.0 Not Available [address], [address], 07/17/2008 11:58:59 07/18/19 09 07/17/2008 CBC RDW 13.2 % 11.6-1 4.8 Not Available [address], [address], 07/17/2008 11:58:59 07/18/19 09 07/17/2008 CBC _MPV 0.0 Not Available [address], [address], 07/17/2008 11:58:59 07/18/19 09 07/17/2008 ALT (SGPT ) ALT 25 U/L 30-65 low Not Available [address], [address], 07/17/2008 12:20:50 07/18/19 09 07/17/2008 lipid panel cholesterol 195 mg/dL <200 mg/dL adia eable 200-2 39 mg/dL borde rline high >240 mg/dL high Not Available [address], [address], 07/17/2008 12:20:52 07/18/19 09 07/17/2008 lipid panel triglyceride s 103 mg/dL <150 mg/dL rober l 150-1 99 mg/dL borde rline high 200-4 99 mg/dL high >500 mg/dL very high Not Available [address], [address], 07/17/2008 12:20:52 07/18/19 09 07/17/2008 lipid panel direct HDL 34 mg/dL <40 mg/dL - major risk for CHD >60 mg/dL - negat angelo risk for CHD Not Available [address], [address], 07/17/2008 12:20:52 07/18/19 09 07/17/2008 lipid panel [...] r IS not jacob ricardo. Not Available [address], [address], 07/17/2008 12:20:52 07/18/19 09 07/17/2008 basic metab [...] ng on A diffe day.) Not Available [address], [address], 07/17/2008 12:20:54 07/18/19 09 07/17/2008 basic metab olic panel BUN 10 mg/dL 7-18 Not Available [address], [address], 07/17/2008 12:20:54 07/18/19 09 07/17/2008 basic metab olic panel creatinine 0.8 mg/dL 0.8-1. 3 Not Available [address], [address], 07/17/2008 12:20:54 07/18/19 09 07/17/2008 basic metab olic panel B/C 12.5 ratio Not Available [address], [address], 07/17/2008 12:20:54 07/18/19 09 07/17/2008 basic metab olic panel GFR 89.4 mL/mi n recom inez d GFR by the natio nal kidne y found ation >60 mL/mi n/1.7 3M2 - rober l <60 mL/mi n/1.7 3M2 - chron ic kidne y disea se <15 mL/mi n/1.7 3M2 - kidne y failu re Not Available [address], [address], 07/17/2008 12:20:54 07/18/19 09 07/17/2008 basic metab olic panel GFR - if 102.8 mL/mi n for afric an ameri can patie nts: resul ts multi plied by 1.21 Not Available [address], [address], 07/17/2008 12:20:54 07/18/19 09 07/17/2008 basic metab olic panel sodium 139 mmol/ L 136-14 5 Not Available [address], [address], 07/17/2008 12:20:54 07/18/19 09 07/17/2008 basic metab olic panel potassium 4.1 mmol/ L 3.5-5. 1 Not Available [address], [address], 07/17/2008 12:20:54 07/18/19 09 07/17/2008 basic metab olic panel chloride 101 mmol/ L 96-107 Not Available [address], [address], 07/17/2008 12:20:54 07/18/19 09 07/17/2008 basic metab olic panel _anion gap 13.0 Not Available [address], [address], 07/17/2008 12:20:54 07/18/19 09 07/17/2008 basic metab olic panel CO2 25 mmol/ L 21-32 Not Available [address], [address], 07/17/2008 12:20:54 07/18/19 09 07/17/2008 basic metab olic panel calcium 9.1 mg/dL 8.5-10 .3 Not Available [address], [address], 07/17/2008 12:20:54 07/18/19 09 07/17/2008 thyro id stimu latin g hormo ne (TSH) TSH 0.41 uIU/m L 0.50-6 .00 low the ameri can colle ge of endoc rinol ogy and ameri can thyro id assoc iatio n recom mend goal TSH value s betwe en 1.0-2 .5 mIU/m L. Not Available [address], [address], 07/17/2008 12:40:44 08/05/19 09 08/05/2008 ESR sed rate 16.0 0.0-15 .0 high Not Available [address], [address], 08/05/2008 10:47:19 08/05/19 09 08/05/2008 thyro id stimu latin g hormo ne (TSH) TSH 0.12 uIU/m L 0.50-6 .00 low the ameri can colle ge of endoc rinol ogy and ameri can thyro id assoc iatio n recom mend goal TSH value s betwe en 1.0-2 .5 mIU/m L. Not Available [address], [place], [address], 08/05/2008 11:24:23 08/05/19 09 08/05/2008 prote in, total and prote in elect ropho resis protein, total 6.9 g/dL 6.2-8. 3 normal Not Available [facility] [place] [facility] [address], [address], 08/05/2008 14:28:29 08/05/19 09 08/05/2008 prote in, total and prote in elect ropho resis albumin 3.9 g/dL 3.5-4. 7 normal Not Available [facility] [address], [address], 08/05/2008 14:28:29 08/05/19 09 08/05/2008 prote in, total and prote in elect rop resis [id number]-9-lcua ulins 0.3 g/dL 0.1-0. 3 normal Not Available [facility] [address], [place], [address], 08/05/2008 14:28:29 08/05/19 09 08/05/2008 prote in, total and prote in elect ropho resis pcunx-8-cxyx ulins 0.7 g/dL 0.5-1. 0 normal Not Available [facility] [address], [address], 08/05/2008 14:28:29 08/05/19 09 08/05/2008 prote in, total and prote in elect ropho resis beta globulins 1.0 g/dL 0.8-1. 4 normal Not Available [facility] [address], [address], 08/05/2008 14:28:29 04/07/20 09 08/05/2008 prote in, total and prote in elect ropho resis gamma globulins 1.0 g/dL 0.6-1. 6 normal Not Available [facility] [place] [facility] [address], [place], [address], 08/05/2008 14:28:29 08/05/19 09 08/05/2008 prote in, total and prote in elect [facility] interpret[facility] on [place] rn Not Available [facility] [place] [facility] [address], [place], [address], 08/05/2008 14:28:29 08/05/19 09 08/05/2008 rheum atoid facto r rheumatoid factor 27.7 IU/mL 0.0-16 .0 high <16.0 IU/mL - negat angelo 16.0- 19.9 IU/mL - equiv ocal >20.0 IU/mL - posit angelo Not Available [address], [address], 08/05/2008 16:24:06 08/05/19 09 08/05/2008 YOUNG YOUNG screen 1.29 0.00-0 .39 high YOUNG=s ample [facility] karthik rn and titer . <0.4 -nega tive 0.40 - 1.10 -equi vocal >1.10 -posi tive Not Available [address], [address], 08/05/2008 16:24:06 08/05/19 09 08/06/2008 RPR RPR NON-RE ACTIVE nonrea ctive Not Available [address], [address], 08/06/2008 10:56:20 08/05/19 09 08/07/2008 lyme disea se igg, igm borrelia burgdorferi Ab 0.20 <0.90 <=0.9 0 - negat angelo 0.91 - 1.09 - equiv ocal >=1.1 0 - posit angelo Not Available [facility] [address] [facility], [place], [address], 08/07/2008 10:21:55 08/05/1908/07/2008 test autho rizat ion test(s) ordered on requisition YOUNG SCREEN IFA W/REFL TITER IFA Not Available [facility] [address], [address], 08/08/2008 07:40:18 08/05/19 09 08/07/2008 test autho rizat ion test code: 55690 Not Available [facility] [address], [address], 08/08/2008 07:40:18 08/05/19 09 08/07/2008 test autho rizat ion client contact: DAVID Starks Not Available [facility] [address], [place], [address], 08/08/2008 07:40:18 08/05/19 09 08/07/2008 test autho [...] signa ture: __ Not Available [facility] [place] [facility] [address], [place], [address], 08/08/2008 07:40:18 08/05/19 09 08/07/2008 YOUNG scree n, ifa YOUNG screen POSITI VE negati ve abnormal Not Available [facility] [place] [facility] [address], [place], [address], 08/08/2008 07:40:18 08/05/19 09 08/07/2008 YOUNG scree n, ifa YOUNG pattern SPECKL ED abnormal Not Available [facility] [place] [facility] [address], [place], [address], 08/08/2008 07:40:18 08/05/19 09 08/07/2008 YOUNG scree n, ifa antinuclear antibodies 1:40 titer high refer ence range : <1:40 negat angelo 1:40 - 1:80 low antib adrienne level >1:80 eleva jessica antib adrienne level Not Available [facility] [place] [facility] [address], [place], [address], 08/08/2008 07:40:18 08/05/19 09 08/10/2008 vitam in B12 vitamin B12 564 pg/mL 230-10 50 Not Available [address], [address], 08/10/2008 08:37:36 08/05/19 09 08/10/2008 folat e folate 12 NG/mL 3-16 Not Available [address], [address], 08/10/2008 08:37:36 08/08/19 09 08/06/2008 imagi ng/di agnos tic resul t No observ ation record ed. [facility] [address] [facility], [place], [address], 11/22/2012 03:18:23 08/15/19 09 08/12/2008 EEG No observ ation record ed. [facility] [address] [place], [address], 11/22/2012 03:20:37 04/27/20 09 04/26/2009 x-ray , hip No observ ation record ed. [facility] [address] [facility], [place], [address], 11/22/2012 03:47:54 07/27/19 17 07/26/2016 shoul tyler [...] DEBRA BALLESTEROS MD 2016 07:32 PM [email or web address] [facility] [address] [place], [address], 07/26/2016 20:25:31 Result Notes None recorded. Problems Name Problem SNOMED Code Status Onset Date Resolution Date Notes Provider Name and Address Organization Details Recorded Time Headache 72162917 Active 2008 Not Available [facility] 3 03:08:46 Psychogeni c headache 26697190 Active Not Available [facility] 3 03:08:46 Rotator cuff shoulder syndrome and allied disorders Completed 03/19/2013 Not Available [facility] 3 02:03:33 Cough 24771270 Completed 200603/19/2013 Not Available [facility] 3 02:01:06 Viral disease 77719630 Completed 199903/19/2013 Not Available [facility] 3 02:03:22 Fever 771567840 Completed 200603/19/2013 Not Available [facility] 3 02:02:41 Diarrhea 30933387 Completed 200703/19/2013 Not Available [facility] 3 02:02:14 Benign essential hypertensi on 6811689 Active 2006 Not Available [facility] 3 03:08:46 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 1999 Not Available [facility] 3 03:08:46 Tobacco user 980731107 Active 2006 Not Available [facility] 3 03:08:46 Hip pain 46102859 Completed 03/19/2013 Not Available [facility] 3 02:01:32 Disorder of soft tissue 12879920 Active 2007 Not Available [facility] 3 03:08:46 Spinal stenosis 90582609 Active 1999 Not Available [facility] 3 03:08:46 Syncope and collapse 523623890 Active Not Available [facility] 3 03:08:46 Cluster headache 443955055 Active Not Available [facility] 3 03:08:46 Sciatica 58266845 Active 2006 Not Available [facility] 3 03:08:46 Postoperat angelo hypothyroi dism 11811782 Active 2008 Not Available [facility] 3 03:08:46 Pain in elbow 52922577 Completed 06/17/2008 Not Available [facility] 3 03:08:46 Finding by method 680210807 Completed 199903/19/2013 Not Available [facility] 3 02:01:54 Chest pain 13875365 Completed 03/19/2013 Not Available [facility] 3 02:01:45 Lumbar sprain 654881875 Completed 200603/19/2013 Not Available [facility] 3 02:03:36 Low back pain 614754193 Active 2006 Not Available [facility] 3 03:08:46 Dysuria 93104389 Completed 03/19/2013 Not Available [facility] 3 02:01:59 Backache 886860606 Completed 199903/19/2013 Not Available [facility] 3 02:01:12 Hypothyroi dism 15207059 Active 2006 Not Available [facility] 3 03:08:46 Mononeurit is 04402155 Active 2008 Not Available [facility] 3 03:08:46 Pain in wrist 81905304 Completed 03/19/2013 Not Available [facility] 3 02:02:22 Acute bronchitis 78036499 Completed 200603/19/2013 Not Available [facility] 3 02:01:35 Primary fibromyalg ia syndrome 45285570 Active 2007 Not Available [facility] 3 03:08:46 Acquired hypothyroi dism 742567421 Active Not Available [facility] 3 03:08:46 Problem Notes None recorded. Procedures Surgical History None recorded. Imaging Results Imaging Date Name Status LastModified by [facility] Details LastModified Time 08/06/2008 imaging/diagn ostic result completed [facility] [address] [place], [address], 11/22/2012 03:18:23 08/12/2008 EEG completed [facility] [address] [place], [address], 11/22/2012 03:20:37 04/26/2009 x-ray, hip completed [address] [place], [address], 11/22/2012 03:47:54 07/26/2016 shoulder com lt completed [email or web address] [facility] [address] [facility], [place], [address], 07/26/2016 20:25:31 Procedure Notes None recorded. Medical Equipment None Reported. Allergies Allergen ID Allergen Name Allergen Category Reaction Reaction Severity Criticality Documentation Date Start Date Code Code System Note Provider Name and Address Organization Details Recorded Time 3262 Compazine medicatio n other severe Not available 06/20/200894605 6 RxNorm Not Available [facility] 1 06:05:20 3263 verapamil medicatio n other severe Not available 06/20/2008 78440 RxNorm Not Available [facility] 1 06:05:20 Medications Name Sig Start [...] Address Organization Details Last Updated DateTime 08/24/2008 75835.9434 54 g 126 mm[Hg] 98 mm[Hg] Aundrea Benson [facility] ([place], [place]) 08/24/2008 17:50:09 Date Recorded Body height Body weight Body mass index (BMI) Heart rate Systolic blood pressure Diastolic blood pressure Provider Name and Address Organization Details Last Updated DateTime 9 165.1 cm 51793.5 98606 g 26 kg/m2 98 /min 130 mm[Hg] 110 mm[Hg] Yumiko Lizamamunds [facility] ([place], [place]) 9 13:10:36 Date Recorded Body height Body weight Body mass index (BMI) Systolic blood pressure Diastolic blood pressure Provider Name and Address Organization Details Last Updated DateTime 04/26/2009 165.1 cm 84054.46 8709 g 26.9 kg/m2 136 mm[Hg] 88 mm[Hg] Nhi Leyva [facility] 9 10:56:28 Social History Question Answer Notes LastModified by Organizat ion Details LastModified Time Tobacco Smoking Status Current Every Day Smoker 3 cigs per day, $8 a pack Not Available [facility] 09/22/2010 02:07:28 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 Information not available 03/16/2011 How Many Children [...] SNOMED-CT Code Diagnosis ICD10 Code Diagnosis Note [id number] , [facility], OFFICE [address] [place] [address] 03/02/2000 09:30:00 05/20/2008 02:02:29 [id number] [facility] , [facility] [address] [place] [address] 03/02/2000 10:00:00 05/20/2008 02:02:29 [id number] [facility], OFFICE [address] [place] [address] 03/12/2000 11:45:00 05/20/2008 02:02:29 [id number] , [facility], [address]ICE [address] [place] [address] 04/02/2000 10:45:00 05/20/2008 02:02:29 [id number] , [facility], OFFICE [address] [place] [address] 04/10/2000 17:15:00 05/20/2008 02:02:29 [id number] , [facility], OFFICE [address] [place] [address] 08/13/2006 15:29:33 08/13/2006 16:24:59 [id number] , [facility], OFFICE [address] [place] [facility] [place] [address] 08/31/2006 09:10:43 08/31/2006 10:17:51 [id number] , [facility], OFFICE [address] [place] [facility] [place] [address] 09/03/2006 09:05:33 09/03/2006 10:37:55 [id number] LAB - [facility] [address] [place] [place] [address] 10/02/2006 13:24:17 10/02/2006 13:27:17 [id number] , [facility], OFFICE [address] [place] [facility] [place] [address] 01/16/2007 15:41:02 01/16/2007 16:49:24 [id number] [facility] , [facility] [address] [place] [address] 02/27/2007 10:52:59 02/28/2007 08:35:45 [id number] , [facility], OFFICE [address] [place] [facility] [place] [address] 02/27/2007 09:28:57 03/06/2007 15:02:58 [id number] , [facility], OFFICE [address] [place] [facility] [place] [address] 03/13/2007 13:26:21 03/27/2007 15:02:33 [id number] LAB - [facility] [address] [place] [address] 03/13/2007 14:26:40 03/13/2007 14:50:06 [id number] , [facility], OFF[facility] [address] [facility] [place] [place] [address] 04/02/2007 15:01:28 05/20/2008 02:02:29 [id number] [facility], OFFICE [address] [place] [address] 09/08/2007 10:42:19 05/20/2008 02:02:29 [id number] , [facility], OFFICE [address] [place] [facility] [place] [address] 09/10/2007 14:51:21 05/20/2008 02:02:29 [id number] [facility], OFFICE [address] [place] [facility] [place] [address] 09/17/2007 15:20:28 05/20/2008 02:02:29 [id number] [facility], OFFICE [address] [place] [address] 09/19/2007 14:00:26 05/20/2008 02:02:29 [id number] LAB - [facility] [address] [facility] [place] [address] 09/18/2007 07:38:42 09/18/2007 07:39:14 [id number] LAB - [address] [address] 09/19/2007 13:53:09 09/19/2007 13:53:15 [id number] LAB - [facility] [address] [place] [address] 09/20/2007 07:17:42 09/20/2007 07:17:49 [id number] [facility], OFFICE [address] [facility] [place] [address] 09/26/2007 13:48:03 10/23/2007 08:01:28 [id number] [facility], OFFICE [address] [place] [address] 04/11/2008 14:47:55 05/20/2008 02:02:29 [id number] [facility], OFFICE [address] [place] [address] 06/15/2008 16:34:40 07/01/2008 08:34:00 [id number] [facility], OFFICE [address] [place] [place] [address] 06/20/2008 11:33:33 06/25/2008 11:01:19 [id number] , [facility], OFFICE [address] [place] [facility] [place] [address] 07/13/2008 17:32:48 07/15/2008 12:23:33 [id number] , [facility], OFFICE [address] [facility] [place] [place] [address] 07/28/2008 10:19:50 07/29/2008 10:21:26 [id number] [facility], OFFICE [address] [facility] [place] [facility] [place] [address] 07/30/2008 15:40:22 07/31/2008 09:28:04 [id number] , [facility], OFFICE [address] [place] [facility] [place] [address] 08/24/2008 17:32:03 08/26/2008 13:55:06 [id number] [facility], OFFICE [address] [facility] [place] [place] [address] 11/17/2008 12:57:26 11/23/2008 15:36:[id number] [facility] [address] [facility] [place] [address] 07/17/2008 06:54:59 07/17/2008 07:18:00 [id number] LAB - [address] [address] 08/04/2008 14:04:53 08/04/2008 14:04:58 [id number] LAB - [address] [address] 08/04/2008 00:00:00 02/25/2009 02:00:52 [id number] [facility], OFFICE [address] [facility] [place] [address] 04/26/2009 10:16:13 04/28/2009 14:19:32 [id number] [facility] , C [address] [facility] [id number] 04/26/2009 11:34:40 05/03/2009 14:24:49 Health Concerns Section Related Observation LastModified by Organization Caridadai ls LastModified Time None Recorded Concern Status LastModified by Organization Details LastModified Time None Recorded Advance Directives Directive None Recorded Payers Encounter Date Sequence Insurance Name Policy Number Policy Chan Covered Member ID Chan Member ID Guarantor Name 08/04/2008 1 [facility] PLAN (MEDICAID HMO) Basilia Breenehan [id number] Basilia Meek Digna 08/24/2008 1 [facility] PLAN (MEDICAID HMO) Basilia Digna [id number] Basilia Meek Digna 11/17/2008 1 *SELF PAY* Shashi fishifer R Digna 04/26/2009 1 *SELF PAY* Shashi nnifer R Digna 04/26/2009 1 *SELF PAY* Shashi nnifer R Digna Notes Date Note Type Note Provider Name and Address Organization Details Recorded Time 04/26/2009 text/html InitializeSe ction( this.Rusty ferrera, 1 ); this.Kalpesh ferrera(true)HPI None recorded. Charly Velásquez MD [address] [place] [address], [phone], [facility] [place] 04/27/2009 21:49:52 OBGyn Episode No OBEpisode recorded.
--- OUTSIDE RECORDS SUMMARY | 2024-07-23 08:58 | XMS_ITS | Data Portability ---
Author Organization [facility], [place] in - [facility] Address [address] [place] [phone] Care Team Providers Care Automation Technologist Name Role Phone [facility] Referring [...] None recorded. Lab culture, urine 2023 024 [facility] (Centralized Electronic Ordering - All Locations), Patient Can Go To The Location Of Their Choice, [address] 18:18:26 [facility] , [facility] [address] [place] [address], [phone], 19:05:08 Referral None recorded. Procedures None recorded. Surgeries None recorded. Imaging None recorded. Medication Orders Bactrim DS 800 mg-160 mg tablet [address] [id number], [address] [place], [place], [phone], 4 15:19:21 Bactrim DS 800 mg-160 mg tablet 2023 Cedric watts [facility] #63953, [address] [place], [place], [phone], 15:19:12 Patient TargetsNo targets recorded. Patient InstructionsNo [...] ve Not Available Main - Inst ed [address] [place] [address], [phone], 05/26/2023 19:03:44 05/26/19 24 05/26/2023 urina lysis , dipst ick Nitrite positi ve Not Available Main - Inst ed [address] [place], [address], 05/26/2023 19:03:44 05/26/19 24 05/26/2023 urina lysis , dipst ick Urobilinogen negati ve Not Available Main - Inst ed [address] [place] [address], [phone], 05/26/2023 19:03:44 05/26/19 24 05/26/2023 urina lysis , dipst ick Protein Positi ve Not Available Main - Inst ed [address] [place] [address], [phone], 05/26/2023 19:03:44 05/26/19 24 05/26/2023 urina lysis , dipst ick pH 6.5 Not Available Main - Ins jessica [address] [place] [address], [phone], 05/26/2023 19:03:44 05/26/19 24 05/26/2023 urina lysis , dipst ick Blood Positi ve Not Available Main - Inst ed [address] [place] [address], [phone], 05/26/2023 19:03:44 05/26/19 24 05/26/2023 urina lysis , dipst ick Specific [place] 1.015 Not Available Main - Inst[facility] [address] [place] [address], [phone], 05/26/2023 19:03:44 05/26/19 24 05/26/2023 urina lysis , dipst ick Ketone negati ve Not Available Main - Inst ed [address] [place] [address], [phone], 05/26/2023 19:03:44 05/26/19 24 05/26/2023 urina lysis , dipst ick Bilirubin negati ve Not Available Main - Inst ed [address] [place] [address], [phone], 05/26/2023 19:03:44 05/26/19 24 05/26/2023 urina lysis , dipst ick Glucose negati ve Not Available Main - Inst ed [address] [place] [address], [phone], 05/26/2023 19:03:44 05/26/19 24 05/26/2023 urina lysis , dipst ick Appearance no sedime nts Not Available Main - Inst ed [address] [place], [address], 05/26/2023 19:03:44 05/26/19 24 05/26/2023 urina lysis , dipst ick Color orange Not Available Main - Ins jess[facility] [address] [place], [address], 05/26/2023 19:03:44 Result Notes None recorded. Medical Equipment None Reported. Allergies Allergen ID Allergen Name Allergen Category Reaction Reaction Severity Criticality Documentation Date Start Date Code Code System Note Provider Name and Address Organization Details Recorded Time 6871 Compazine medicatio n Not available Not available Not available 02/26/202486096 6 RxNorm Not Available [facility] - production [...] cm 98.8 [degF] 98 % 98 % 13388.9 6 g 155 mm[Hg] 106 mm[Hg] Not [...] SNOMED-CT Code Diagnosis ICD10 Code Diagnosis Note [id number] NIKITA NIXON MD Main - [facility] [address] [place] [phone] 05/26/2023 15:16:02 05/27/2023 15:30:59 Urinary symptoms 861859403 R39.9 Evaluation in the field was performed by my stain applicator colleague, as noted above, I provided real-time [...] acces to her urine culture results at [facility].P t is allergic at Augmentin ( reports tongue swelling and throat closing ) , so I don't feel comfortabl e giving Ceftriaxon e IV . Will start bactrim BID x7 days ( first dose given by stain applicator ). D/C levaquin ( usual dose for [...] worsening CVA tenderness or any other concerns. [id number] Stacy June MD Main - [facility] [address] [place] [phone] 05/29/2023 19:08:38 05/29/2023 21:40:20 Acute urinary tract infection 298591708 N39.0 Health Concerns Section Related Observation LastModified by Organization Detai ls LastModified Time None Recorded Concern Status LastModified by Organization Details LastModified Time None Recorded Advance Directives Directive None Recorded Payers Encounter Date Sequence Insurance Name Policy Number Policy Chan Covered Member ID Chan Member ID Guarantor Name 05/26/2023 1 [facility] - DOS ON OR AFTER 2022 - DUAL ELIGIBLE - GROUP HOME OPTIONS AND ONE CARE (MEDICARE REPLACEMENT/ADV ANTAGE - HMO) Basilia Sawyer [id number] Basilia Sawyer 05/29/2023 1 [facility] - DOS ON OR AFTER 2022 - DUAL ELIGIBLE - GROUP HOME OPTIONS AND ONE CARE (MEDICARE REPLACEMENT/ADV ANTAGE - HMO) Basilia Sawyer [id number] Basilia Sawyer Notes Date Note Type Note [...] ...................... ...................... ...................... ...................... ...................... ...................... ......... Slate Handler Note From Arsalan Rosenbaum: [place] [facility] [place] Since [place] home the pt [...] +NOEMÍ, +NIT, +PRO, +BLO. UC sent to [facility]. Pt treated with bactrim DS. Pt thoroughly educated on catheter care and s/sx that would indicate the ED. Pt to f/u with urology on Sunday. ...................... ...................... ...................... ...................... ...................... ...................... ......... Disposition: Sharon NIXON MD [address] [place] [address],[address], [place], [address], [employer] 05/26/2023 19:05:44 05/29/2023 text/html [facility] Nurse Triage Notes (Garrett Dias): Reason For Request: Pt is reporting issues lately with low blood pressure>just getting over a UTI and states not feeling right>pulse is going from high to normal>lowest top number reading was 72/73 pulse at 83, which was taken at 5pm BP at 5:20pm / Chief Complaints: Syncope/Dizziness/Ligh theadedness Allergies: Compazine Comments: Transport Specialist verified the member's name//address and phone [...] - Cath removed yesterday. Kyra June MD [address] [place] [address],[address], [place], [phone], [employer] 05/29/2023 19:28:59 OBGyn Episode No OBEpisode recorded.
== END 2024-07-23 11:23 | disposition home or self-care (01) ==
LOC: HO.HGI 08:33
PROVIDERS: PCP Physician Assistant; Visit Provider Internal Medicine
DX: K63.9 Disease of intestine, unspecified (principal); R19.4 Change in bowel habit; R14.0 Abdominal distension (gaseous); K22.0 Achalasia of cardia; Z80.0 Family history of malignant neoplasm of digestive organs
CPT/HCPCS: 99214; G2211

== ENCOUNTER 2024-08-01 09:25 | Outpatient (REF) | payer OTHER, SELFPAY ==
--- OUTSIDE RECORDS SUMMARY | 2024-08-01 10:16 | XMS_ITS | Data Portability ---
Author Organization [employer] [facility], [place] in - [facility] Address [address] [place] [phone] Care Team Providers Care Inspector Fuel Hose Name Role Phone [facility] Referring [...] None recorded. Lab culture, urine 2023 024 [facility] (Centralized Electronic Ordering - All Locations), Patient Can Go To The Location Of Their Choice, [address] 4 18:18:26 urinalysis , dipstick 2023 024 [facility], [address] [place] [address], [phone] 4 19:05:08 Referral None recorded. Procedures None recorded. Surgeries None recorded. Imaging None recorded. Medication Orders Bactrim DS 800 mg-160 mg tablet 2023 024 [facility][id number], [address] [place], [place], [phone], 4 15:19:21 Bactrim DS 800 mg-160 mg tablet 2023 Cedric watts [facility] #86406, [address] [place], [place], [phone], 15:19:12 Patient TargetsNo targets recorded. Patient InstructionsNo instructions recorded. Reason for Referral None Reported. Results Created Date Observation Date Name Description Value Unit Range Abnormal Flag Note LastModifiedBy Organization Detail LastModifiedTime 05/26/1905/26/2023 URINE CULTU RE specimen description URINE Not Available [facility] (Centralized Electronic Ordering - All Locations) Patient Can Go To The Location Of Their Choice, [id number] 05/27/2023 18:18:25 05/26/19 24 05/26/2023 URINE CULTU RE special requests NONE Not Available [facility] (Centralized Electronic Ordering - All Locations) Patient Can Go To The Location Of Their Choice, 05/27/2023 18:18:25 05/26/19 24 05/27/2023 URINE CULTU RE culture NO GROWTH Not Available [facility] (Centralized Electronic Ordering - All Locations) Patient Can Go To The Location Of Their Choice, [address] 05/27/2023 18:18:25 05/26/19 24 05/27/2023 URINE CULTU RE report status FINAL 2023 Not Available [facility] (Centralized Electronic Ordering - All Locations) Patient Can Go To The Location Of Their Choice, [place] 05/27/2023 18:18:25 05/26/1905/26/2023 urina lysis , dipst ick Leukocytes Positi ve Not Available Main - [facility] ed [address] [place] [address], [phone] 05/26/2023 19:03:44 05/26/19 24 05/26/2023 urina lysis , dipst ick Nitrite positi ve Not Available Main - [facility] ed [address] [place] [address], [phone] 05/26/2023 19:03:44 05/26/19 24 05/26/2023 urina lysis , dipst ick Urobilinogen negati ve Not Available Main - [facility] ed [address] [place] [address], [phone] 05/26/2023 19:03:44 05/26/19 24 05/26/2023 urina lysis , dipst ick Protein Positi ve Not Available Main - [facility] ed [address] [place] [address], [address] [place] [address] 05/26/2023 19:03:44 05/26/19 24 05/26/2023 urina lysis , dipst ick pH 6.5 Not Available Main - [facility] [address] [place] [address], [address] [place] [address] 05/26/2023 19:03:44 05/26/19 24 05/26/2023 urina lysis , dipst ick Blood Positi ve Not Available Main - [facility] ed [address] [place] [address], [address] [place] [address] 05/26/2023 19:03:44 05/26/19 24 05/26/2023 urina lysis , dipst ick Specific [place] 1.015 Not Available [facility] [address] [place] [address], [address] [place] [address] 05/26/2023 19:03:44 05/26/19 24 05/26/2023 urina lysis , dipst ick Ketone negati ve Not Available Main - [facility] ed [address] [place] [address], [address] [place] [address] 05/26/2023 19:03:44 05/26/19 24 05/26/2023 urina lysis , dipst ick Bilirubin negati ve Not Available Main - [facility] ed [address] [place] [address], [address] [place] [address] 05/26/2023 19:03:44 05/26/19 24 05/26/2023 urina lysis , dipst ick Glucose negati ve Not Available [facility] - [facility] ed [address] [place] [address], [address] [place] [address] 05/26/2023 19:03:44 05/26/19 24 05/26/2023 urina lysis , dipst ick Appearance no sedime nts Not Available [facility] - [facility] ed [address] [place] [address], [address] [place] [address] 05/26/2023 19:03:44 05/26/19 24 05/26/2023 urina lysis , dipst ick Color orange Not Available Main - [facility] [address] [place] [address], [address] [place] [address] 05/26/2023 19:03:44 Result Notes None recorded. Medical Equipment None Reported. Allergies Allergen ID Allergen Name Allergen Category Reaction Reaction Severity Criticality Documentation Date Start Date Code Code System Note Provider Name and Address Organization Details Recorded Time 9168 Compazine medicatio n Not available Not available Not available 02/26/2024 6 RxNorm Not Available [facility] - production 4 03:49:35 Medications Name Sig Start Date Stop [...] cm 98.8 [degF] 98 % 98 % 49645.9 6 g 155 mm[Hg] 106 mm[Hg] Not Available [facility] 4 15:16:10 Date Recorded Body temperature Respiratory rate Oxygen saturation Oxygen saturation in Arterial blood by Pulse oximetry Heart rate Systolic blood pressure Diastolic blood pressure Provider Name and Address Organization Details Last Updated DateTime 4 98.9 [degF] 16 /min 100 % 100 % 78 /min 138 mm[Hg] 88 mm[Hg] Not Available [facility] 4 19:08:41 Social History None recorded. Functional Status None recorded. Mental Status None recorded. Family History Nothing Reported. Medical History No medical history recorded. Gynecological HistoryNo gynecological history recorded. Obstetrics History GPAL:G 0 P 0 0 0 0 Past Encounters Encounter ID Performer Location Encounter Start Date Encounter Closed Date Diagnosis/Indication Diagnosis SNOMED-CT Code Diagnosis ICD10 Code Diagnosis Note [id number] NIKITA NIXON MD Main - [facility] [address] [place] [phone] 05/26/2023 15:16:02 05/27/2023 15:30:59 Urinary symptoms [id number] R39.9 Evaluation in the field was performed by my ladle pourer colleague, as noted above, I provided real-time [...] acces to her urine culture results at [facility].P t is allergic at Augmentin ( reports tongue swelling and throat closing ) , so I don't feel comfortabl e giving Ceftriaxon e IV . Will start bactrim BID x7 days ( first dose given by ladle pourer ). D/C levaquin ( usual dose for [...] worsening CVA tenderness or any other concerns. [id number] Stacy June MD [facility] - [address] [phone] 05/29/2023 19:08:38 05/29/2023 21:40:20 Acute urinary tract infection [id number] N39.0 Health Concerns Section Related Observation LastModified by Organization Detai ls LastModified Time None Recorded Concern Status LastModified by Organization Details LastModified Time None Recorded Advance Directives Directive None Recorded Payers Encounter Date Sequence Insurance Name Policy Number Policy Chan Covered Member ID Chan Member ID Guarantor Name 05/26/2023 1 [facility] - DOS ON OR AFTER 2022 - DUAL ELIGIBLE - PENITENTIARY OPTIONS AND ONE CARE (MEDICARE REPLACEMENT/ADV ANTAGE - HMO) Basilia Sawyer [id number] Basilia Sawyer 05/29/2023 1 [facility] - DOS ON OR AFTER 2022 - DUAL ELIGIBLE - PENITENTIARY OPTIONS AND ONE CARE (MEDICARE REPLACEMENT/ADV ANTAGE - HMO) Basilia Sawyer [id number] Basilia Sawyer Notes Date Note Type Note [...] ...................... ...................... ...................... ...................... ...................... ...................... ......... Telecommunications Facility Examiner Note From Arsalan Rosenbaum: Pt reports winters placed at [facility] on 05/[place]. Since returning home the pt [...] +NOEMÍ, +NIT, +PRO, +BLO. UC sent to [facility]. Pt treated with bactrim DS. Pt thoroughly educated on catheter care and s/sx that would indicate the ED. Pt to f/u with urology on Sunday. ...................... ...................... ...................... ...................... ...................... ...................... ......... Disposition: Fulfilled NIKITA NIXON MD [address] [facility],[address], [place], [address], [employer] 05/26/2023 19:05:44 05/29/2023 text/html [facility] Nurse Triage Notes (Garrett Dias): Reason For Request: Pt is reporting issues lately with low blood pressure>just getting over a UTI and states not feeling right>pulse is going from high to normal>lowest top number reading was 72/73 pulse at 83, which was taken at 5pm BP at 5:20pm /66 Chief Complaints: Syncope/Dizziness/Ligh theadedness Allergies: Compazine Comments: Foreign Languages Professor verified the member's name//address and phone number [...] - Recent UTI - Cath removed yesterday. Denmaría June MD [address] [facility],[address], [place], [address], [employer] 05/29/2023 19:28:59 OBGyn Episode No OBEpisode recorded.
--- OUTSIDE RECORDS SUMMARY | 2024-08-01 10:16 | XMS_ITS | Data Portability ---
Author Organization [facility], , [facility] Address [address] [facility] [place] [address] Assessment Encounter Date Assessment Date Assessment LastModified [...] neg. 2008 009 FAN Hook MD, [address] [facility], [address], [place], [address], 3 03:29:21 orthopedic surgeon referral - biceps tendonitis and tennis elbow 2008 009 FAN Not available 3 03:20:08 physical therapist referral - tendonitis in elbow and shoulder 2008 009 [facility], [address] [place] [address], [facility], [place], [address], 3 03:20:08 Procedures None recorded. Surgeries None recorded. Imaging x-ray, hip - L side, call when ready 2008 009 [facility], [address] [place], [address], 3 03:47:47 Medication Orders Percocet 10 mg-650 mg tablet 2008 009 [facility], [address] [place], [address], 4 02:34:28 lisinopril 10 mg tablet 2008 009 [facility], [address] [place], [address], 4 02:58:49 Percocet 10 mg-650 mg tablet 2008 009 [facility], [address] [place], [address], 4 02:32:37 Percocet 10 mg-650 mg tablet 2008 009 FAN [facility], [address] [place], [address], 3 03:20:08 Patient TargetsNo targets recorded. Patient Instructions Encounter Date Encounter Id Patient Instructions Last Modified By Organization Details Last Modified Time 08/24/2008 [id number] Not available 11/28/2010 02:58:13 Reason for Referral [...] diogr am Result Normal ECG Not Available [address], [address], 07/30/2008 16:59:12 07/31/19 09 07/30/2008 urina lysis , dipst ick Glucose Negati ve Not Available [address], [address], 07/30/2008 16:43:42 07/31/19 09 07/30/2008 urina lysis , dipst ick Bilirubin Negati ve Not Available [address], [address], 07/30/2008 16:43:42 07/31/19 09 07/30/2008 urina lysis , dipst ick Ketone Negati ve Not Available [address], [address], 07/30/2008 16:43:42 07/31/19 09 07/30/2008 urina lysis , dipst ick Specific C[place] 1.025 Not Available [address], [address], 07/30/2008 16:43:42 07/31/19 09 07/30/2008 urina lysis , dipst ick Blood Trace Not Available [address], [address], 07/30/2008 16:43:42 07/31/19 09 07/30/2008 urina lysis , dipst ick pH 6.0 Not Available [address], [address], 07/30/2008 16:43:42 07/31/19 09 07/30/2008 urina lysis , dipst ick Protein Negati ve Not Available [address], [address], 07/30/2008 16:43:42 07/31/19 09 07/30/2008 urina lysis , dipst ick Urobilinogen .2 Not Available [address], [address], 07/30/2008 16:43:42 07/31/19 09 07/30/2008 urina lysis , dipst ick Nitrite negati ve Not Available [address], [address], 07/30/2008 16:43:42 07/31/19 09 07/30/2008 urina lysis , dipst ick Leukocytes Negati ve Not Available [address], [address], 07/30/2008 16:43:42 07/14/19 09 07/13/2008 urina lysis , dipst ick Glucose Negati ve Not Available [address], [address], 07/13/2008 17:47:59 07/14/19 09 07/13/2008 urina lysis , dipst ick Bilirubin Negati ve Not Available [address], [address], 07/13/2008 17:47:59 07/14/19 09 07/13/2008 urina lysis , dipst ick Ketone Negati ve Not Available [address], [address], 07/13/2008 17:47:59 07/14/19 09 07/13/2008 urina lysis , dipst ick Specific [place] 1.020 Not Available [address], [address], 07/13/2008 17:47:59 07/14/19 09 07/13/2008 urina lysis , dipst ick Blood Trace Not Available [address], [address], 07/13/2008 17:47:59 07/14/19 09 07/13/2008 urina lysis , dipst ick pH 6.0 Not Available [address], [address], 07/13/2008 17:47:59 07/14/19 09 07/13/2008 urina lysis , dipst ick Protein Negati ve Not Available [address], [address], 07/13/2008 17:47:59 07/14/19 09 07/13/2008 urina lysis , dipst ick Urobilinogen .2 Not Available [address], [address], 07/13/2008 17:47:59 07/14/19 09 07/13/2008 urina lysis , dipst ick Nitrite negati ve Not Available [address], [address], 07/13/2008 17:47:59 07/14/19 09 07/13/2008 urina lysis , dipst ick Leukocytes Trace Not Available [address], [address], 07/13/2008 17:47:59 07/18/19 09 07/17/2008 CBC WBC 6.3 K/?L 4.6-10 .2 Not Available [address], [address], 07/17/2008 11:58:59 07/18/19 09 07/17/2008 CBC lymph # 1.7 K/?L 0.6-3. 4 Not Available [address], [address], 07/17/2008 11:58:59 07/18/19 09 07/17/2008 CBC mid # 0.3 K/?L 0.0-1. 8 Not Available [address], [address], 07/17/2008 11:58:59 07/18/19 09 07/17/2008 CBC gran # 4.3 K/?L 2.0-6. 9 Not Available [address], [address], 07/17/2008 11:58:59 07/18/19 09 07/17/2008 CBC lymph % 26.4 % 10.0-5 0.0 Not Available [address], [address], 07/17/2008 11:58:59 07/18/19 09 07/17/2008 CBC mid % 4.6 % 0.1-24 .0 Not Available [address], [address], 07/17/2008 11:58:59 07/18/19 09 07/17/2008 CBC gran % 69.0 % 37.0-8 0.0 Not Available [address], [address], 07/17/2008 11:58:59 07/18/19 09 07/17/2008 CBC RBC 4.38 M/?L 4.04-5 .48 Not Available [address], [address], 07/17/2008 11:58:59 07/18/19 09 07/17/2008 CBC HGB 13.4 g/dL 12.2-1 6.2 Not Available [address], [address], 07/17/2008 11:58:59 07/18/19 09 07/17/2008 CBC HCT 38.9 % 37.7-4 7.9 Not Available [address], [address], 07/17/2008 11:58:59 07/18/19 09 07/17/2008 CBC MCV 88.7 ?L 80.0-9 7.0 Not Available [address], [address], 07/17/2008 11:58:59 07/18/19 09 07/17/2008 CBC MCH 30.6 pg 27.0-3 1.2 Not Available [address], [address], 07/17/2008 11:58:59 07/18/19 09 07/17/2008 CBC MCHC 34.4 g/dL 31.8-3 5.4 Not Available [address], [address], 07/17/2008 11:58:59 07/18/19 09 07/17/2008 CBC plt 354.0 K/?L 142.0- 424.0 Not Available [address], [address], 07/17/2008 11:58:59 07/18/19 09 07/17/2008 CBC RDW 13.2 % 11.6-1 4.8 Not Available [address], [address], 07/17/2008 11:58:59 07/18/19 09 07/17/2008 CBC _MPV 0.0 Not Available [address], [address], 07/17/2008 11:58:59 07/18/19 09 07/17/2008 ALT (SGPT ) ALT 25 U/L 30-65 low Not Available [address], [address], 07/17/2008 12:20:50 07/18/19 09 07/17/2008 lipid panel cholesterol 195 mg/dL <200 mg/dL adia eable 200-2 39 mg/dL borde rline high >240 mg/dL high Not Available [address], [address], 07/17/2008 12:20:52 07/18/19 09 07/17/2008 lipid panel triglyceride s 103 mg/dL <150 mg/dL rober l 150-1 99 mg/dL borde rline high 200-4 99 mg/dL high >500 mg/dL very high Not Available [address], [address], 07/17/2008 12:20:52 07/18/19 09 07/17/2008 lipid panel direct HDL 34 mg/dL <40 mg/dL - major risk for CHD >60 mg/dL - negat angelo risk for CHD Not Available [address], [address], 07/17/2008 12:20:52 07/18/19 09 07/17/2008 lipid panel [...] r IS not jacob ricardo. Not Available [address], [address], 07/17/2008 12:20:52 07/18/19 09 07/17/2008 basic metab [...] ng on A diffe day.) Not Available [address], [address], 07/17/2008 12:20:54 07/18/19 09 07/17/2008 basic metab olic panel BUN 10 mg/dL 7-18 Not Available [address], [address], 07/17/2008 12:20:54 07/18/19 09 07/17/2008 basic metab olic panel creatinine 0.8 mg/dL 0.8-1. 3 Not Available [address], [address], 07/17/2008 12:20:54 07/18/19 09 07/17/2008 basic metab olic panel B/C 12.5 ratio Not Available [address], [address], 07/17/2008 12:20:54 07/18/19 09 07/17/2008 basic metab olic panel GFR 89.4 mL/mi n recom inez d GFR by the natio nal kidne y found ation >60 mL/mi n/1.7 3M2 - rober l <60 mL/mi n/1.7 3M2 - chron ic kidne y disea se <15 mL/mi n/1.7 3M2 - kidne y failu re Not Available [address], [address], 07/17/2008 12:20:54 07/18/19 09 07/17/2008 basic metab olic panel GFR - if 102.8 mL/mi n for afric an ameri can patie nts: resul ts multi plied by 1.21 Not Available [address], [address], 07/17/2008 12:20:54 07/18/19 09 07/17/2008 basic metab olic panel sodium 139 mmol/ L 136-14 5 Not Available [address], [address], 07/17/2008 12:20:54 07/18/19 09 07/17/2008 basic metab olic panel potassium 4.1 mmol/ L 3.5-5. 1 Not Available [address], [address], 07/17/2008 12:20:54 07/18/19 09 07/17/2008 basic metab olic panel chloride 101 mmol/ L 96-107 Not Available [address], [address], 07/17/2008 12:20:54 07/18/19 09 07/17/2008 basic metab olic panel _anion gap 13.0 Not Available [address], [address], 07/17/2008 12:20:54 07/18/19 09 07/17/2008 basic metab olic panel CO2 25 mmol/ L 21-32 Not Available [address], [address], 07/17/2008 12:20:54 07/18/19 09 07/17/2008 basic metab olic panel calcium 9.1 mg/dL 8.5-10 .3 Not Available [address], [address], 07/17/2008 12:20:54 07/18/19 09 07/17/2008 thyro id stimu latin g hormo ne (TSH) TSH 0.41 uIU/m L 0.50-6 .00 low the ameri can colle ge of endoc rinol ogy and ameri can thyro id assoc iatio n recom mend goal TSH value s betwe en 1.0-2 .5 mIU/m L. Not Available [address], [address], 07/17/2008 12:40:44 08/05/19 09 08/05/2008 ESR sed rate 16.0 0.0-15 .0 high Not Available [address], [address], 08/05/2008 10:47:19 08/05/19 09 08/05/2008 thyro id stimu latin g hormo ne (TSH) TSH 0.12 uIU/m L 0.50-6 .00 low the ameri can colle ge of endoc rinol ogy and ameri can thyro id assoc iatio n recom mend goal TSH value s betwe en 1.0-2 .5 mIU/m L. Not Available [address], [place], [address], 08/05/2008 11:24:23 08/05/19 09 08/05/2008 prote in, total and prote in elect ropho resis protein, total 6.9 g/dL 6.2-8. 3 normal Not Available [facility] [place] [facility] [address], [address], 08/05/2008 14:28:29 08/05/19 09 08/05/2008 prote in, total and prote in elect ropho resis albumin 3.9 g/dL 3.5-4. 7 normal Not Available [facility] [address], [address], 08/05/2008 14:28:29 08/05/19 09 08/05/2008 prote in, total and prote in elect rop resis sbpki-0-psge ulins 0.3 g/dL 0.1-0. 3 normal Not Available [facility] [address], [place], [address], 08/05/2008 14:28:29 08/05/19 09 08/05/2008 prote in, total and prote in elect ropho resis lamot-3-aiir ulins 0.7 g/dL 0.5-1. 0 normal Not Available [facility] [address], [address], 08/05/2008 14:28:29 08/05/19 09 08/05/2008 prote in, total and prote in elect ropho resis beta globulins 1.0 g/dL 0.8-1. 4 normal Not Available [facility] [address], [address], 08/05/2008 14:28:29 04/07/20 09 08/05/2008 prote in, total and prote in elect ropho resis gamma globulins 1.0 g/dL 0.6-1. 6 normal Not Available [facility] [place] [facility] [address], [place], [address], 08/05/2008 14:28:29 08/05/19 09 08/05/2008 prote in, total and prote in [facility] [place] rn Not Available [facility] [place] [facility] [address], [place], [address], 08/05/2008 14:28:29 08/05/19 09 08/05/2008 rheum atoid facto r rheumatoid factor 27.7 IU/mL 0.0-16 .0 high <16.0 IU/mL - negat angelo 16.0- 19.9 IU/mL - equiv ocal >20.0 IU/mL - posit angelo Not Available [address], [address], 08/05/2008 16:24:06 08/05/19 09 08/05/2008 YOUNG YOUNG screen 1.29 0.00-0 .39 high YOUNG=s ample [facility] karthik rn and titer . <0.4 -nega tive 0.40 - 1.10 -equi vocal >1.10 -posi tive Not Available [address], [address], 08/05/2008 16:24:06 08/05/19 09 08/06/2008 RPR RPR NON-RE ACTIVE nonrea ctive Not Available [address], [address], 08/06/2008 10:56:20 08/05/19 09 08/07/2008 lyme disea se igg, igm borrelia burgdorferi Ab 0.20 <0.90 <=0.9 0 - negat angelo 0.91 - 1.09 - equiv ocal >=1.1 0 - posit angelo Not Available [facility] [address] [facility], [place], [address], 08/07/2008 10:21:55 08/05/1908/07/2008 test autho rizat ion test(s) ordered on requisition YOUNG SCREEN IFA W/REFL TITER IFA Not Available [facility] [address], [address], 08/08/2008 07:40:18 08/05/19 09 08/07/2008 test autho rizat ion test code: 20448 Not Available [facility] [address], [address], 08/08/2008 07:40:18 08/05/19 09 08/07/2008 test autho rizat ion client contact: DAVID Starks Not Available [facility] [address], [place], [address], 08/08/2008 07:40:18 08/05/19 09 08/07/2008 test autho [...] signa ture: __ Not Available [facility] [place] [address], [place], [address], 08/08/2008 07:40:18 08/05/19 09 08/07/2008 YOUNG scree n, ifa YOUNG screen POSITI VE negati ve abnormal Not Available [facility] [address], [place], [address], 08/08/2008 07:40:18 08/05/19 09 08/07/2008 YOUNG scree n, ifa YOUNG pattern SPECKL ED abnormal Not Available [facility] [address], [place], [address], 08/08/2008 07:40:18 08/05/19 09 08/07/2008 YOUNG scree n, ifa antinuclear antibodies 1:40 titer high refer ence range : <1:40 negat angelo 1:40 - 1:80 low antib adrienne level >1:80 eleva jessica antib adrienne level Not Available [facility] [address], [place], [address], 08/08/2008 07:40:18 08/05/19 09 08/10/2008 vitam in B12 vitamin B12 564 pg/mL 230-10 50 Not Available [address], [address], 08/10/2008 08:37:36 08/05/19 09 08/10/2008 folat e folate 12 NG/mL 3-16 Not Available [address], [address], 08/10/2008 08:37:36 08/08/19 09 08/06/2008 imagi ng/di agnos tic resul t No observ ation record ed. [facility] [address] [facility], [place], [address], 11/22/2012 03:18:23 08/15/19 09 08/12/2008 EEG No observ ation record ed. [facility] [address] [place], [address], 11/22/2012 03:20:37 04/27/20 09 04/26/2009 x-ray , hip No observ ation record ed. [facility] [address] [facility], [place], [address], 11/22/2012 03:47:54 07/27/19 17 07/26/2016 shoul tyler [...] DEBRA BALLESTEROS MD 2016 07:32 PM [email or web address] [facility] [address] [place], [address], 07/26/2016 20:25:31 Result Notes None recorded. Problems Name Problem SNOMED Code Status Onset Date Resolution Date Notes Provider Name and Address Organization Details Recorded Time Headache 29311174 Active 2008 Not Available [facility] 3 03:08:46 Psychogeni c headache 00244209 Active Not Available [facility] 3 03:08:46 Rotator cuff shoulder syndrome and allied disorders Completed 03/19/2013 Not Available [facility] 3 02:03:33 Cough 29019281 Completed 200603/19/2013 Not Available [facility] 3 02:01:06 Viral disease 99010480 Completed 199903/19/2013 Not Available [facility] 3 02:03:22 Fever 047113128 Completed 200603/19/2013 Not Available [facility] 3 02:02:41 Diarrhea 85212588 Completed 200703/19/2013 Not Available [facility] 3 02:02:14 Benign essential hypertensi on 1263654 Active 2006 Not Available [facility] 3 03:08:46 Conduction disorder of the heart 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 1999 Not Available [facility] 3 03:08:46 Tobacco user 608239746 Active 2006 Not Available [facility] 3 03:08:46 Hip pain 32493464 Completed 03/19/2013 Not Available [facility] 3 02:01:32 Disorder of soft tissue 67633489 Active 2007 Not Available [facility] 3 03:08:46 Spinal stenosis 62116303 Active 1999 Not Available [facility] 3 03:08:46 Syncope and collapse 241433985 Active Not Available [facility] 3 03:08:46 Cluster headache 726466858 Active Not Available [facility] 3 03:08:46 Sciatica 56231666 Active 2006 Not Available [facility] 3 03:08:46 Postoperat angelo hypothyroi dism 41164501 Active 2008 Not Available [facility] 3 03:08:46 Pain in elbow 72266862 Completed 06/17/2008 Not Available [facility] 3 03:08:46 Finding by method 748966449 Completed 199903/19/2013 Not Available [facility] 3 02:01:54 Chest pain 11324883 Completed 03/19/2013 Not Available [facility] 3 02:01:45 Lumbar sprain 837688064 Completed 200603/19/2013 Not Available [facility] 3 02:03:36 Low back pain 160298532 Active 2006 Not Available [facility] 3 03:08:46 Dysuria 68724296 Completed 03/19/2013 Not Available [facility] 3 02:01:59 Backache 758774620 Completed 199903/19/2013 Not Available [facility] 3 02:01:12 Hypothyroi dism 91601716 Active 2006 Not Available [facility] 3 03:08:46 Mononeurit is 67878935 Active 2008 Not Available [facility] 3 03:08:46 Pain in wrist 27855486 Completed 03/19/2013 Not Available [facility] 3 02:02:22 Acute bronchitis 49199650 Completed 200603/19/2013 Not Available [facility] 3 02:01:35 Primary fibromyalg ia syndrome 49074072 Active 2007 Not Available [facility] 3 03:08:46 Acquired hypothyroi dism 300323498 Active Not Available [facility] 3 03:08:46 Problem Notes None recorded. Procedures Surgical History None recorded. Imaging Results Imaging Date Name Status LastModified by Organiz [facility] Details LastModified Time 08/06/2008 imaging/diagn ostic result completed [facility] [address] [place], [address], 11/22/2012 03:18:23 08/12/2008 EEG completed [facility] [address] [place], [address], 11/22/2012 03:20:37 04/26/2009 x-ray, hip completed [address] [place], [address], 11/22/2012 03:47:54 07/26/2016 shoulder com lt completed [email or web address] [facility] [address] [facility], [place], [address], 07/26/2016 20:25:31 Procedure Notes None recorded. Medical Equipment None Reported. Allergies Allergen ID Allergen Name Allergen Category Reaction Reaction Severity Criticality Documentation Date Start Date Code Code System Note Provider Name and Address Organization Details Recorded Time 3262 Compazine medicatio n other severe Not available 06/20/200825708 6 RxNorm Not Available [facility] 1 06:05:20 3263 verapamil medicatio n other severe Not available 06/20/2008 80302 RxNorm Not Available [facility] 1 06:05:20 Medications Name Sig [...] Address Organization Details Last Updated DateTime 08/24/2008 51708.9434 54 g 126 mm[Hg] 98 mm[Hg] Aundrea Benson [facility] 08/24/2008 17:50:09 Date Recorded Body height Body weight Body mass index (BMI) Heart rate Systolic blood pressure Diastolic blood pressure Provider Name and Address Organization Details Last Updated DateTime 9 165.1 cm 98491.5 19929 g 26 kg/m2 98 /min 130 mm[Hg] 110 mm[Hg] Yumiko Lizamamunds [facility] 9 13:10:36 Date Recorded Body height Body weight Body mass index (BMI) Systolic blood pressure Diastolic blood pressure Provider Name and Address Organization Details Last Updated DateTime 04/26/2009 165.1 cm 06152.46 8709 g 26.9 kg/m2 136 mm[Hg] 88 mm[Hg] Nhi Leyva [facility] 9 10:56:28 Social History Question Answer Notes LastModified by Organizat ion Details LastModified Time Tobacco Smoking Status Current Every Day Smoker 3 cigs per day, $8 a pack Not Available [facility] 09/22/2010 02:07:28 What Is Your Occupation? [employer] Information not available 03/16/2011 How Many Children [...] SNOMED-CT Code Diagnosis ICD10 Code Diagnosis Note [id number] , [facility], OFFICE [address] [place] [address] 03/02/2000 09:30:00 05/20/2008 02:02:29 [id number] [facility] , [facility] [address] [place] [address] 03/02/2000 10:00:00 05/20/2008 02:02:29 [id number] [facility], [address] [place] [address] 03/12/2000 11:45:00 05/20/2008 02:02:29 [id number] , [facility], [address] [place] [address] 04/02/2000 10:45:00 05/20/2008 02:02:29 [id number] , [facility], [address] [place] [address] 04/10/2000 17:15:00 05/20/2008 02:02:29 [id number] , [facility], OFFICE [address] [place] [address] 08/13/2006 15:29:33 08/13/2006 16:24:59 [id number] , [facility], OFFICE [address] [place] [facility] [place] [address] 08/31/2006 09:10:43 08/31/2006 10:17:51 [id number] , [facility], OFFICE [address] [place] [address] 09/03/2006 09:05:33 09/03/2006 10:37:55 [id number] LAB - [facility] [address] [place] [facility] [place] [address] 10/02/2006 13:24:17 10/02/2006 13:27:17 [id number] , [facility], OFFICE [address] [place] [facility] [place] [address] 01/16/2007 15:41:02 01/16/2007 16:49:24 [id number] [facility] , MIC [address] [place] [address] 02/27/2007 10:52:59 02/28/2007 08:35:45 [id number] , [facility], OFFICE [address] [place] [facility] [place] [address] 02/27/2007 09:28:57 03/06/2007 15:02:58 [id number] , [facility], OFFICE [address] [place] [address] 03/13/2007 13:26:21 03/27/2007 15:02:33 [id number] LAB - [facility] [address] [place] [facility] [place] [address] 03/13/2007 14:26:40 03/13/2007 14:50:06 [id number] , [facility], OFFICE [address] [facility] [place] [address] 04/02/2007 15:01:28 05/20/2008 02:02:29 [id number] [facility], [address] [place] [address] 09/08/2007 10:42:19 05/20/2008 02:02:29 [id number] , [facility], [address] [place] [facility] [place] [address] 09/10/2007 14:51:21 05/20/2008 02:02:29 [id number] [facility], OFFICE [address] [place] [address] 09/17/2007 15:20:28 05/20/2008 02:02:29 [id number] [facility], [address] [place] [address] 09/19/2007 14:00:26 05/20/2008 02:02:29 [id number] LAB - [facility] [address] [facility] [place] [facility] [address] 09/18/2007 07:38:42 09/18/2007 07:39:14 [id number] LAB - [address] [address] 09/19/2007 13:53:09 09/19/2007 13:53:15 [id number] LAB - [facility] [address] [place] [address] 09/20/2007 07:17:42 09/20/2007 07:17:49 [id number] [facility], OFFICE [address] [facility] [place] [address] 09/26/2007 13:48:03 10/23/2007 08:01:28 [id number] [facility], [address] [place] [address] 04/11/2008 14:47:55 05/20/2008 02:02:29 [id number] [facility], [address] [place] [address] 06/15/2008 16:34:40 07/01/2008 08:34:00 [id number] [facility], OFFICE [address] [place] [address] 06/20/2008 11:33:33 06/25/2008 11:01:19 [id number] , [facility], OFFICE [address] [place] [facility] [place] [address] 07/13/2008 17:32:48 07/15/2008 12:23:33 [id number] , [facility], OFFICE [address] [facility] [place] [address] 07/28/2008 10:19:50 07/29/2008 10:21:26 [id number] [facility], OFFICE [address] [facility] [place] [address] 07/30/2008 15:40:22 07/31/2008 09:28:04 [id number] , [facility], OFFICE [address] [place] [address] 08/24/2008 17:32:03 08/26/2008 13:55:06 [id number] [facility], OFFICE [address] [facility] [place] [address] 11/17/2008 12:57:26 11/23/2008 15:36:35 [id number] [facility] [address] [facility] [place] [facility] [address] 07/17/2008 06:54:59 07/17/2008 07:18:00 [id number] LAB - [address] [address] 08/04/2008 14:04:53 08/04/2008 14:04:58 [id number] LAB - [address] [address] 08/04/2008 00:00:00 02/25/2009 02:00:52 [id number] [facility], OFFICE [address] [facility] [place] [address] 04/26/2009 10:16:13 04/28/2009 14:19:32 [id number] [facility] , C [address] [place] [address] 04/26/2009 11:34:40 05/03/2009 14:24:49 Health Concerns Section Related Observation LastModified by Organization Caridadai ls LastModified Time None Recorded Concern Status LastModified by Organization Details LastModified Time None Recorded Advance Directives Directive None Recorded Payers Encounter Date Sequence Insurance Name Policy Number Policy Chan Covered Member ID Chan Member ID Guarantor Name 08/04/2008 1 [facility] PLAN (MEDICAID HMO) Basilia Breenehan [id number] Basilia Meek [employer] 08/24/2008 1 [facility] PLAN (MEDICAID HMO) Basilia Digna [id number] Basilia Meek Digna 11/17/2008 1 *SELF PAY* Shashi fishifer R Digna 04/26/2009 1 *SELF PAY* Shashi nnifer R Digna 04/26/2009 1 *SELF PAY* Shashi nnifer R Dinga Notes Date Note Type Note Provider Name and Address Organization Details Recorded Time 04/26/2009 text/html InitializeSe ction( this.Rusty ferrera, 1 ); this.Kalpesh ferrera(true)HPI None recorded. Charly Velásquez MD [address] [place] [address], [phone], [facility] 04/27/2009 21:49:52 OBGyn Episode No OBEpisode recorded.
[2024-08-01 13:03] LABS: Calcium 9.6 mg/dL (8.4-10.2); Estimated Glomerular Filt Rate > 60; Phosphorus 2.7 mg/dL (2.7-4.5)
== END 2024-08-01 09:26 | disposition home or self-care (01) ==
LOC: HO.LAB 09:25
PROVIDERS: Absent Provider Internal Medicine; PCP Physician Assistant; Visit Provider Physician Assistant
DX: E06.3 Autoimmune thyroiditis (principal); E03.8 Other specified hypothyroidism; E83.39 Other disorders of phosphorus metabolism; R10.9 Unspecified abdominal pain; G89.29 Other chronic pain; E83.52 Hypercalcemia
CPT/HCPCS: 36415; 82310; 82565; 84100; 84443

== ENCOUNTER 2024-08-12 09:51 | Outpatient (AMB) | payer OTHER, SELFPAY ==
[2024-08-12 09:53] VITALS: BMI 24.0
--- NOTE | 2024-08-12 09:53 | MHC.OFFVIS ---
Vital Signs 08/12/24 09:53 Height 5 ft 5 in Weight 144 lb BMI 24.0 Intake Visit Reasons: Bilateral shoulder pains Intake Note: Basilia is a 54 year old right hand dominant female who presents with complaints of intermittent bilateral shoulder pains. She describes her pains as sharp in nature. She has done formal physical therapy which gave her temporary relief. She has also tried Tylenol and ibuprofen which gave her mild relief. She denies any weakness. She has not had a cortisone injection. Allergies amoxicillin [From AUGMENTIN] Allergy (Severe, Verified 08/12/24 09:59) Anaphylaxis clavulanic acid [From AUGMENTIN] Allergy (Severe, Verified 08/12/24 09:59) Anaphylaxis banana Allergy (Unknown, Verified 08/12/24 09:59) Unknown ketorolac [From Toradol] Allergy (Unknown, Verified 08/12/24 09:59) Anaphylaxis kiwi Allergy (Unknown, Verified 08/12/24 09:59) Unknown prochlorperazine [From COMPAZINE] Allergy (Unknown, Verified 08/12/24 09:59) INVOLUNTARY SPASMS Udcuxwt-CAJ-JjY Reductase Inhibitor Allergy (Verified 08/12/24 09:59) Muscle cramps Medication List - Last Reconciled 08/12/24 by Caesar Lezama MD acetaminophen-codeine 300-30 mg 1 tab PO Q8H PRN 7 days aspirin (Adult Aspirin Regimen) 81 mg PO DAILY levothyroxine 100 mcg PO DAILY lisinopril 20 mg PO DAILY 90 days miscellaneous medical supply (Blood Pressure Cuff) As directed [facility] Medical History Neha-Danlos syndrome Neuropathy Thrombophlebitis of left leg Rectocele Elevated cholesterol History of cervical cancer Family history of colon cancer Nicotine dependence, cigarettes, uncomplicated HTN (hypertension) Family history of pancreatic cancer COPD (chronic obstructive pulmonary disease) Dysphagia Vitamin D deficiency Hypothyroidism (~1999) Surgical History History of loop electrical excision procedure (LEEP) History of endometrial ablation History of tonsillectomy (~1976) History of History of throat surgery (~2011) Family History Mother Alzheimer's dementia CVD (cardiovascular disease) Maternal Grandfather Pancreatic cancer Social History Household Members: Children Household Members Other:: lives at home with 20-year-old daughter Housing: Apartment Do you presently have visiting nurse or other home services: No Alcohol intake: never Comment: vaginal area Patient Tobacco Use Status: Former Tobacco user Tobacco use type: Cigarette Cigarette Packs Per Day: 0.5 Cigarettes Per Day: 5 Years Smoked: (onset 11, 1ppd x 40yrs, now 1/4ppd, 40pyh) e-Cigarette/Vaping Use: Never Used Second Hand Smoke Exposure: Yes Substance Use Type: Marijuana Advance Directives Date on File: 09/11/22 service: No Current occupational status: disabled Cognitive needs: No Hearing needs: No Vision needs: No Female Reproductive History Menstrual Age of Menarche: 11 Physical Exam Vital Signs: BMI result Body Mass Index 24.0 Const Other: Well-nourished well-developed very friendly female awake alert and oriented x3 in no acute distress Extrem Other: Bilateral shoulder examination shows 4+ over 5 strength with supraspinatus testing, positive impingement signs, tenderness over her acromioclavicular joints Results Reviewed Results Reviewed: MRI of the patient's right shoulder show severe acromioclavicular joint narrowing, a type 2 acromion, diffuse labral fraying Assessment & Plan Assessment & Plan (1) Bilateral shoulder pain: Code(s): M25.511 - Pain in right shoulder; M25.512 - Pain in left shoulder Category: Medical Plan Ms. Sawyer presents with bilateral shoulder pains due to impingement syndrome. I had a lengthy discussion with the patient regarding the treatment options. At this point the patient's symptoms are tolerable to her. We will hold off on a cortisone injection. She will follow up with me on an as-needed basis should her symptoms worsen in any way. Feel free to call me at any time should questions regarding her orthopedic management arise. Thank you very much for asking me to see this very friendly patient. I spent 22 minutes in reviewing the patient's records and imaging studies, seeing the patient and documenting in the medical record. Coding Level of Care Code New Pt Level 3 (07475) Complex EM visit Add On G2211 Diagnoses Bilateral shoulder pain M25.511; M25.512
--- OUTSIDE RECORDS SUMMARY | 2024-08-12 11:20 | XMS_ITS | Data Portability ---
Author Organization [employer] [facility] [place] - [facility] Address [address] [place] [id number] Care Team Providers Care Director Financial Planning Name Role Phone [facility] Referring [...] Go To The Location Of Their Choice, [id number] 4 18:18:26 urinalysis , dipstick 2023 024 [facility], [address] [place] [address], [phone] 4 19:05:08 Referral None recorded. Procedures None recorded. Surgeries None recorded. Imaging None recorded. Medication Orders Bactrim DS 800 mg-160 mg tablet 2023 024 [id number], [address], [place], [phone], 4 15:19:21 Bactrim DS 800 mg-160 mg tablet 2023 Cedric watts [facility] #[id number], [address], [place], [phone], 15:19:12 Patient TargetsNo targets recorded. Patient InstructionsNo instructions recorded. Reason for Referral None Reported. Results Created Date Observation Date Name Description Value Unit Range Abnormal Flag Note LastModifiedBy Organization Detail LastModifiedTime 05/26/1905/26/2023 URINE CULTU RE specimen description URINE Not Available [facility] (Centralized Electronic Ordering - All Locations) Patient Can Go To The Location Of Their Choice, [id number] 05/27/2023 18:18:25 05/26/19 24 05/26/2023 URINE CULTU RE special requests NONE Not Available [facility] (Centralized Electronic Ordering - All Locations) Patient Can Go To The Location Of Their Choice, 05/27/2023 18:18:25 05/26/19 24 05/27/2023 URINE CULTU RE culture NO GROWTH Not Available [facility] (Centralized Electronic Ordering - All Locations) Patient Can Go To The Location Of Their Choice, [id number] 05/27/2023 18:18:25 05/26/19 24 05/27/2023 URINE CULTU RE report status FINAL 2023 Not Available [facility] (Centralized Electronic Ordering - All Locations) Patient Can Go To The Location Of Their Choice, [facility] [place][note 2] 05/27/2023 18:18:25 05/26/1905/26/2023 urina lysis , dipst ick Leukocytes Positi ve Not Available Main - [facility] ed [address] [place] [address], [phone] 05/26/2023 19:03:44 05/26/19 24 05/26/2023 urina lysis , dipst ick Nitrite positi ve Not Available Main - [facility] ed [address] [place] [address], [phone] 05/26/2023 19:03:44 05/26/19 24 05/26/2023 urina lysis , dipst ick Urobilinogen negati ve Not Available Main - [facility] ed [address] [place] [address], [phone] 05/26/2023 19:03:44 05/26/19 24 05/26/2023 urina lysis , dipst ick Protein Positi ve Not Available Main - [facility] ed [address] [place] [address], [address] [place] [address] 05/26/2023 19:03:44 05/26/19 24 05/26/2023 urina lysis , dipst ick pH 6.5 Not Available Main - [facility] [address] [place] [address], [address] [place] [address] 05/26/2023 19:03:44 05/26/19 24 05/26/2023 urina lysis , dipst ick Blood Positi ve Not Available Main - [facility] ed [address] [place] [address], [address] [place] [address] 05/26/2023 19:03:44 05/26/19 24 05/26/2023 urina lysis , dipst ick Specific [place] 1.015 Not Available [facility] [address] [place] [address], [address] [place] [address] 05/26/2023 19:03:44 05/26/19 24 05/26/2023 urina lysis , dipst ick Ketone negati ve Not Available Main - [facility] ed [address] [place] [address], [address] [place] [address] 05/26/2023 19:03:44 05/26/19 24 05/26/2023 urina lysis , dipst ick Bilirubin negati ve Not Available Main - [facility] ed [address] [place] [address], [address] [place] [address] 05/26/2023 19:03:44 05/26/19 24 05/26/2023 urina lysis , dipst ick Glucose negati ve Not Available [facility] - [facility] ed [address] [place] [address], [address] [place] [address] 05/26/2023 19:03:44 05/26/19 24 05/26/2023 urina lysis , dipst ick Appearance no sedime nts Not Available [facility] - [facility] ed [address] [place] [address], [address] [place] [address] 05/26/2023 19:03:44 05/26/19 24 05/26/2023 urina lysis , dipst ick Color orange Not Available Main - [facility] [address] [place] [address], [address] [place] [address] 05/26/2023 19:03:44 Result Notes None recorded. Medical [...] cm 98.8 [degF] 98 % 98 % 45900.9 6 g 155 mm[Hg] 106 mm[Hg] Not Available [facility] 4 15:16:10 Date Recorded Body temperature Respiratory rate Oxygen saturation Oxygen saturation in Arterial blood by Pulse oximetry Heart rate Systolic blood pressure Diastolic blood pressure Provider Name and Address Organization Details Last Updated DateTime 4 98.9 [degF] 16 /min 100 % 100 % 78 /min 138 mm[Hg] 88 mm[Hg] Not Available [facility] 4 19:08:41 Social History None recorded. Functional Status None recorded. Mental Status None recorded. Family History Nothing Reported. Medical History No medical history recorded. Gynecological HistoryNo gynecological history recorded. Obstetrics History GPAL:G 0 P 0 0 0 0 Past Encounters Encounter ID Performer Location Encounter Start Date Encounter Closed Date Diagnosis/Indication Diagnosis SNOMED-CT Code Diagnosis ICD10 Code Diagnosis Note [id number] NIKITA NIXON MD Main - [facility] [address] [place] [phone] 05/26/2023 15:16:02 05/27/2023 15:30:59 Urinary symptoms [id number] R39.9 Evaluation in the field was performed by my motel manager colleague, as noted above, I provided real-time [...] acces to her urine culture results at [facility].P t is allergic at Augmentin ( reports tongue swelling and throat closing ) , so I don't feel comfortabl e giving Ceftriaxon e IV . Will start bactrim BID x7 days ( first dose given by motel manager ). D/C levaquin ( usual dose for [...] worsening CVA tenderness or any other concerns. [id number] Stacy June MD [facility] - [address] [address] 05/29/2023 19:08:38 05/29/2023 21:40:20 Acute urinary tract infection [id number] N39.0 Health Concerns Section Related Observation LastModified by Organization Detai ls LastModified Time None Recorded Concern Status LastModified by Organization Details LastModified Time None Recorded Advance Directives Directive None Recorded Payers Encounter Date Sequence Insurance Name Policy Number Policy Chan Covered Member ID Chan Member ID Guarantor Name 05/26/2023 1 [facility] - DOS ON OR AFTER 2022 - DUAL ELIGIBLE - [employer] OPTIONS AND ONE CARE (MEDICARE REPLACEMENT/ADV ANTAGE - HMO) Basilia Sawyer [id number] Basilia Sawyer 05/29/2023 1 [facility] - DOS ON OR AFTER 2022 - DUAL ELIGIBLE - [employer] OPTIONS AND ONE CARE (MEDICARE REPLACEMENT/ADV ANTAGE - HMO) Basilia Sawyer [id number] Basilia Sawyer Notes Date Note Type Note [...] ...................... ...................... ...................... ...................... ...................... ...................... ......... [employer]ement [employer] D[employer] Note From Arsalan Rosenbaum: Pt reports winters placed at [facility] on 05/18. Since returning home the pt [...] +NOEMÍ, +NIT, +PRO, +BLO. UC sent to [facility]. Pt treated with bactrim DS. Pt thoroughly educated on catheter care and s/sx that would indicate the ED. Pt to f/u with urology on Sunday. ...................... ...................... ...................... ...................... ...................... ...................... ......... Disposition: Fulfilled NIKITA NIXON MD [address] [facility], [place], [address], [employer] 05/26/2023 19:05:44 05/29/2023 text/html CRC Nurse Triage Notes (Garrett Dias): Reason For Request: Pt is reporting issues lately with low blood pressure>just getting over a UTI and states not feeling right>pulse is going from high to normal>lowest top number reading was 72/73 pulse at 83, which was taken at 5pm BP at 5:20pm /66 Chief Complaints: Syncope/Dizziness/Ligh theadedness Allergies: Compazine Comments: Shipping Receiving Clerk verified the member's name//address and phone number [...] Cath removed yesterday. Denmaría June MD [address] [facility], [place], [address], [employer] 05/29/2023 19:28:59 OBGyn Episode No OBEpisode recorded.
== END 2024-08-12 10:24 | disposition home or self-care (01) ==
LOC: HO.HOS 09:51
PROVIDERS: PCP Physician Assistant; Visit Provider Orthopaedic Surgery
DX: M25.511 Pain in right shoulder (principal); M25.512 Pain in left shoulder; M75.41 Impingement syndrome of right shoulder; M75.42 Impingement syndrome of left shoulder
CPT/HCPCS: 99203

== ENCOUNTER → 2024-08-12 09:51 | Outpatient (BNVA) | payer OTHER, SELFPAY | PROVIDERS: PCP Physician Assistant; Visit Provider Orthopaedic Surgery | DX: M25.511 Pain in right shoulder (principal); M25.512 Pain in left shoulder | CPT/HCPCS: 99202 ==

== ENCOUNTER 2024-10-21 09:42 | Outpatient (AMB) | payer OTHER, SELFPAY ==
--- NOTE | 2024-10-21 09:53 | A.OFFVIS_ITS ---
Vital Signs 10/21/24 09:59 Height 5 ft 5 in Weight 144 lb BMI 24.0 Intake Visit Reasons: INJ Left Shoulder Cortisone Injection Req Intake Note: Basilia is a 54 year old right hand dominant female who presents with complaints of intermittent bilateral shoulder pains, left greater than right. She describes her pains as sharp in nature. She has tried physical therapy e xercises which aggravated her pain. She has also tried Tylenol and anti- inflammatory medicines which gave her minimal relief. She has not had a cortisone injection. Allergies amoxicillin (From AUGMENTIN) Allergy (Severe, Verified 10/21/24 09:57) Anaphylaxis clavulanic acid (From AUGMENTIN) Allergy (Severe, Verified 10/21/24 09:57) Anaphylaxis banana Allergy (Unknown, Verified 10/21/24 09:57) Unknown ketorolac (From Toradol) Allergy (Unknown, Verified 10/21/24 09:57) Anaphylaxis kiwi Allergy (Unknown, Verified 10/21/24 09:57) Unknown prochlorperazine (From COMPAZINE) Allergy (Unknown, Verified 10/21/24 09:57) INVOLUNTARY SPASMS Xadjocz-ESH-FsH Reductase Inhibitor Allergy (Verified 10/21/24 09:57) Muscle cramps Medication List - Last Reconciled 10/21/24 by Caesar Lezama MD acetaminophen-codeine 300-30 mg 1 tab PO Q8H PRN 7 days aspirin (Adult Aspirin Regimen) 81 mg PO DAILY levothyroxine 100 mcg PO DAILY lisinopril 20 mg PO DAILY 90 days miscellaneous medical supply (Blood Pressure Cuff) As directed [facility] Medical History Neha-Danlos syndrome Neuropathy Thrombophlebitis of left leg Rectocele Elevated cholesterol History of cervical cancer Family history of colon cancer Nicotine dependence, cigarettes, uncomplicated HTN (hypertension) Family history of pancreatic cancer COPD (chronic obstructive pulmonary disease) Dysphagia Vitamin D deficiency Hypothyroidism (~1999) Surgical History History of loop electrical excision procedure (LEEP) History of endometrial ablation History of tonsillectomy (~1976) History of History of throat surgery (~2011) Family History Mother Alzheimer's dementia CVD (cardiovascular disease) Maternal Grandfather Pancreatic cancer Social History Household Members: Children Household Members Other:: lives at home with 20-year-old daughter Housing: Apartment Do you presently have visiting nurse or other home services: No Alcohol intake: never Comment: vaginal area Patient Tobacco Use Status: Former Tobacco user Tobacco use type: Cigarette Cigarette Packs Per Day: 0.5 Cigarettes Per Day: 5 Years Smoked: (onset 11, 1ppd x 40yrs, now 1/4ppd, 40pyh) e-Cigarette/Vaping Use: Never Used Second Hand Smoke Exposure: Yes Substance Use Type: Marijuana Advance Directives Date on File: 09/11/22 service: No Current occupational status: disabled Cognitive needs: No Hearing needs: No Vision needs: No Female Reproductive History Menstrual Age of Menarche: 11 Physical Exam Vital Signs: BMI result Body Mass Index 24.0 Const Other: Well-nourished well-developed very friendly female awake alert and oriented x3 in no acute distress Extrem Other: Bilateral upper extremity examination shows good capillary refill, no skin lesions noted, normal sensation light touch Left shoulder examination shows slightly decreased range of motion when compared to her right shoulder, 4+ out of 5 strength with supraspinatus testing, positive impingement signs, no instability Office Procedures AMB Joint Injection/Aspiration Joint Injection/Aspiration Primary Site: left shoulder Prep: site was prepped using aseptic technique Injected: 40 mg of, DepoMedrol and 1% plain lidocaine Procedure: The patient tolerated the procedure well Coding 24192 - Large joint Procedure code (CPT) selection complete Assessment & Plan Assessment & Plan (1) Impingement syndrome of left shoulder: Code(s): M75.42 - Impingement syndrome of left shoulder Category: Medical Plan Ms. Sawyer presents with left shoulder pain due to impingement syndrome. The risks and benefits of a left shoulder cortisone injection were discussed at length with the patient. The patient wished to proceed. She tolerated the injection well. She will continue with her home stretching program. She will contact me prior to her follow-up appointment in 3-4 weeks should her symptoms worsen in any way. Feel free to call me at any time should questions regarding her orthopedic management arise. I spent 20 minutes in reviewing the patient's records and imaging studies, seeing the patient and documenting in the medical record. Orders: Orders AMB Joint Injection/Aspiration Today M75.42 - Impingement syndrome of left shoulder Coding Level of Care Code Est Pt Level 3 (49961) Complex EM visit Add On G2211 Diagnoses Impingement syndrome of left shoulder M75.42 CPT Codes Coding - 15693 Large joint: 57530 - Large joint ([id number])
[2024-10-21 09:59] VITALS: BMI 24.0
--- OUTSIDE RECORDS SUMMARY | 2024-10-21 10:35 | XMS_ITS | Data Portability ---
Author Organization [facility], [facility] Address [address] [place] [phone] Care Team Providers Care Gas Compressor Turbine Operator Name Role Phone [facility] [...] None recorded. Lab culture, urine 2023 024 [place] [facility] (Centralized Electronic Ordering - All Locations), Patient Can Go To The Location Of Their Choice, [id number] 18:18:26 urinalysis , dipstick 2023 024 [facility], [address] [place] [address], [phone] 4 19:05:08 Referral None recorded. Procedures None recorded. Surgeries None recorded. Imaging None recorded. Medication Orders Bactrim DS 800 mg-160 mg tablet 2023 024 [id number], [address], [place], [phone], 4 15:19:21 Bactrim DS 800 mg-160 mg tablet 2023 [id number], [address], [place], [phone], 15:19:12 Patient TargetsNo targets recorded. Patient InstructionsNo instructions recorded. Reason for Referral None Reported. Results Created Date Observation Date Name Description Value Unit Range Abnormal Flag Note LastModifiedBy Organization Detail LastModifiedTime 05/26/1905/26/2023 URINE CULTU RE specimen description URINE Not Available [facility] (Centralized Electronic Ordering - All Locations) Patient Can Go To The Location Of Their Choice, 05/27/2023 18:18:25 05/26/1905/26/2023 URINE CULTU RE special requests NONE Not Available [facility] (Centralized Electronic Ordering - All Locations) Patient Can Go To The Location Of Their Choice, 05/27/2023 18:18:25 05/26/19 24 05/27/2023 URINE CULTU RE culture NO GROWTH Not Available [facility] (Centralized Electronic Ordering - All Locations) Patient Can Go To The Location Of Their Choice, 05/27/2023 18:18:25 05/26/1905/27/2023 URINE CULTU RE report status FINAL 2023 Not Available [facility] (Centralized Electronic Ordering - All Locations) Patient Can Go To The Location Of Their Choice, 05/27/2023 18:18:25 05/26/1905/26/2023 urina lysis , dipst ick Leukocytes Positi ve Not Available Main - [facility] ed [address] [place] [address], [phone] 05/26/2023 19:03:44 05/26/19 24 05/26/2023 urina lysis , dipst ick Nitrite positi ve Not Available Main - [facility] ed [address] [place] [address], [phone] 05/26/2023 19:03:44 05/26/19 24 05/26/2023 urina lysis , dipst ick Urobilinogen negati ve Not Available Main - [facility] ed [address] [place] [address], [phone] 05/26/2023 19:03:44 05/26/19 24 05/26/2023 urina lysis , dipst ick Protein Positi ve Not Available Main - [facility] ed [address] [place] [address], [address] [place] [address] 05/26/2023 19:03:44 05/26/19 24 05/26/2023 urina lysis , dipst ick pH 6.5 Not Available Main - [facility] [address] [place] [address], [address] [place] [address] 05/26/2023 19:03:44 05/26/19 24 05/26/2023 urina lysis , dipst ick Blood Positi ve Not Available Main - [facility] [address] [place] [address], [address] [place] [address] 05/26/2023 19:03:44 05/26/19 24 05/26/2023 urina lysis , dipst ick Specific [place] 1.015 Not Available Main - [facility] [address] [place] [address], [address] [place] [address] 05/26/2023 19:03:44 05/26/19 24 05/26/2023 urina lysis , dipst ick Ketone negati ve Not Available Main - [facility] [address] [place] [address], [address] [place] [address] 05/26/2023 19:03:44 05/26/19 24 05/26/2023 urina lysis , dipst ick Bilirubin negati ve Not Available Main - [facility] ed [address] [place] [address], [address] [place] [address] 05/26/2023 19:03:44 05/26/19 24 05/26/2023 urina lysis , dipst ick Glucose negati ve Not Available Main - [facility] [address] [place] [address], [address] [place] [address] 05/26/2023 19:03:44 05/26/19 24 05/26/2023 urina lysis , dipst ick Appearance no sedime nts Not Available Main - [facility] [address] [place] [address], [address] [place] [address] 05/26/2023 19:03:44 05/26/19 24 05/26/2023 urina lysis , dipst ick Color orange Not Available Main - [facility] [address] [place] [address], [address] [place] [address] 05/26/2023 19:03:44 Result Notes None recorded. Medical [...] cm 98.8 [degF] 98 % 98 % 52283.9 6 g 155 mm[Hg] 106 mm[Hg] Not Available [employer] 4 15:16:10 Date Recorded Body temperature Respiratory rate Oxygen saturation Oxygen saturation in Arterial blood by Pulse oximetry Heart rate Systolic blood pressure Diastolic blood pressure Provider Name and Address Organization Details Last Updated DateTime 4 98.9 [degF] 16 /min 100 % 100 % 78 /min 138 mm[Hg] 88 mm[Hg] Not Available [employer] 4 19:08:41 Social History None recorded. Functional Status None recorded. Mental Status None recorded. Family History Nothing Reported. Medical History No medical history recorded. Gynecological HistoryNo gynecological history recorded. Obstetrics History GPAL:G 0 P 0 0 0 0 Past Encounters Encounter ID Performer Location Encounter Start Date Encounter Closed Date Diagnosis/Indication Diagnosis SNOMED-CT Code Diagnosis ICD10 Code Diagnosis Note [id number] NIKITA NIXON MD Main - [facility] [address] [place] [phone] 05/26/2023 15:16:02 05/27/2023 15:30:59 Urinary symptoms 599603536 R39.9 Evaluation in the field was performed by my decision analyst colleague, as noted above, I provided real-time [...] acces to her urine culture results at [facility].P t is allergic at Augmentin ( reports tongue swelling and throat closing ) , so I don't feel comfortabl e giving Ceftriaxon e IV . Will start bactrim BID x7 days ( first dose given by decision analyst ). D/C levaquin ( usual dose for [...] worsening CVA tenderness or any other concerns. [id number] Stacy June MD [address] [phone] 05/29/2023 19:08:38 05/29/2023 21:40:20 Acute urinary tract infection 637697060 N39.0 Health Concerns Section Related Observation LastModified by Organization Detai ls LastModified Time None Recorded Concern Status LastModified by Organization Details LastModified Time None Recorded Advance Directives Directive None Recorded Payers Insurance Date Sequence Insurance Name Policy Number Policy Chan Covered Member ID Chan Member ID Guarantor Name 05/26/[address] [facility] - DOS ON OR AFTER 2022 - DUAL ELIGIBLE - HALFWAY OPTIONS AND ONE CARE (MEDICARE REPLACEMENT/ADV ANTAGE - HMO) Basilia Sawyer [id number] Basilia Sawyer Notes Date Note Type Note Provider Name and Address Organization Details Recorded Time 05/26/2023 text/html HPI: Can you remove a [place] catheter ? A catheter was put in May 18 in the emergency room. I ve now been on antibiotics for 4 days and I m not getting better and I want this catheter removed. ...................... ...................... ...................... ...................... ...................... ...................... ......... [...] ...................... ...................... ...................... ...................... ...................... ...................... ......... Blackener Note From Arsalan Rosenbaum: Pt reports winters placed at [facility] on 05/18. Since returning home the pt [...] +NOEMÍ, +NIT, +PRO, +BLO. UC sent to [facility]. Pt treated with bactrim DS. Pt thoroughly educated on catheter care and s/sx that would indicate the ED. Pt to f/u with urology on Sunday. ...................... ...................... ...................... ...................... ...................... ...................... ......... Disposition: Sharon NIKITA NIXON MD [address] [facility],[address], [place], [phone], [employer] 05/26/2023 19:05:44 05/29/2023 text/html CRC Nurse Triage Notes (Garrett Dias): Reason For Request: Pt is reporting issues lately with low blood pressure>just getting over a UTI and states not feeling right>pulse is going from high to normal>lowest top number reading was 72/73 pulse at 83, which was taken at 5pm BP at 5:20pm 106/66 Chief Complaints: Syncope/Dizziness/Ligh theadedness Allergies: Compazine Comments: Wood Sawyer verified the member's name//address and phone number [...] Cath removed yesterday. Kyra June MD [address] [facility],[address], [place], [address], [employer] 05/29/2023 19:28:59 OBGyn Episode No OBEpisode recorded.
== END 2024-10-21 10:11 | disposition home or self-care (01) ==
LOC: HO.HOS 09:43
PROVIDERS: PCP Physician Assistant; Visit Provider Orthopaedic Surgery
DX: M75.42 Impingement syndrome of left shoulder (principal)
CPT/HCPCS: 20610; 99213

== ENCOUNTER → 2024-10-21 09:42 | Outpatient (BNVA) | payer OTHER, SELFPAY | PROVIDERS: PCP Physician Assistant; Visit Provider Orthopaedic Surgery | DX: M75.42 Impingement syndrome of left shoulder (principal); M25.512 Pain in left shoulder | CPT/HCPCS: 20610; 99212; J1010; J2003 ==

== ENCOUNTER 2024-10-30 08:49 | Outpatient (REF) | payer OTHER, SELFPAY ==
--- OUTSIDE RECORDS SUMMARY | 2024-10-30 08:57 | XMS_ITS | Data Portability ---
Author Organization Location [facility], [facility] Address [address] [place] [phone] Care Team Providers Care Bar Porter Name Role Phone [facility] Referring Provider [phone] Assessment Encounter Date Assessment Date Assessment LastModified [...] None recorded. Lab culture, urine 2023 024 [place] [facility] (Centralized Electronic Ordering - All Locations), Patient Can Go To The Location Of Their Choice, [address] 18:18:26 urinalysis , dipstick 2023 024 [facility], [address] [place] [address], [phone] 4 19:05:08 Referral None recorded. Procedures None recorded. Surgeries None recorded. Imaging None recorded. Medication Orders Bactrim DS 800 mg-160 mg tablet 2023 024 [employer] [facility][id number], [address] [place], [place], [phone], 4 15:19:21 Bactrim DS 800 mg-160 mg tablet 2023 [id number], [address], [place], [phone], 15:19:12 Patient TargetsNo targets recorded. Patient InstructionsNo [...] Leukocytes Positi ve Not Available Main - [facility] ed [address] [place] [address], [phone] 05/26/2023 19:03:44 05/26/19 24 05/26/2023 urina lysis , dipst ick Nitrite positi ve Not Available Main - [facility] ed [address] [place] [address], [phone] 05/26/2023 19:03:44 05/26/19 24 05/26/2023 urina lysis , dipst ick Urobilinogen negati ve Not Available Main - [facility] ed [address] [place] [address], [phone] 05/26/2023 19:03:44 05/26/19 24 05/26/2023 urina lysis , dipst ick Protein Positi ve Not Available Main - [facility] ed [address] [place] [address], [address] [place] [address] 05/26/2023 19:03:44 05/26/19 24 05/26/2023 urina lysis , dipst ick pH 6.5 Not Available Main - [facility] [address] [place] [address], [address] [place] [address] 05/26/2023 19:03:44 05/26/19 24 05/26/2023 urina lysis , dipst ick Blood Positi ve Not Available Main - [facility] [address] [place] [address], [address] [place] [address] 05/26/2023 19:03:44 05/26/19 24 05/26/2023 urina lysis , dipst ick Specific [place] 1.015 Not Available Main - [facility] [address] [place] [address], [address] [place] [address] 05/26/2023 19:03:44 05/26/19 24 05/26/2023 urina lysis , dipst ick Ketone negati ve Not Available Main - [facility] [address] [place] [address], [address] [place] [address] 05/26/2023 19:03:44 05/26/19 24 05/26/2023 urina lysis , dipst ick Bilirubin negati ve Not Available Main - [facility] ed [address] [place] [address], [address] [place] [address] 05/26/2023 19:03:44 05/26/19 24 05/26/2023 urina lysis , dipst ick Glucose negati ve Not Available Main - [facility] [address] [place] [address], [address] [place] [address] 05/26/2023 19:03:44 05/26/19 24 05/26/2023 urina lysis , dipst ick Appearance no sedime nts Not Available Main - [facility] [address] [place] [address], [address] [place] [address] 05/26/2023 19:03:44 05/26/19 24 05/26/2023 urina lysis , dipst ick Color orange Not Available Main - [facility] [address] [place] [address], [address] [place] [address] 05/26/2023 19:03:44 Result Notes None recorded. Medical [...] blood by Pulse oximetry Body weight Systolic And Diastolic Provider Name and Address Organization Details Last Updated DateTime 4 16 /min 95 /min 165.1 cm 98.8 [degF] 98 % 98 % 71383.9 6 g 155/106 mm[Hg] Not Available [employer] 4 15:16:10 Date Recorded Body temperature Respiratory rate Oxygen saturation Oxygen saturation in Arterial blood by Pulse oximetry Heart rate Systolic And Diastolic Provider Name and Address Organization Details Last Updated DateTime 4 98.9 [degF] 16 /min 100 % 100 % 78 /min 138/88 mm[Hg] Not Available [employer] 4 19:08:41 Social History None recorded. Functional Status None recorded. Mental Status None recorded. Family History Nothing Reported. Medical History No medical history recorded. Gynecological HistoryNo gynecological history recorded. Obstetrics History GPAL:G 0 P 0 0 0 0 Past Encounters Encounter ID Performer Location Encounter Start Date Encounter Closed Date Diagnosis/Indication Diagnosis SNOMED-CT Code Diagnosis ICD10 Code Diagnosis Note [id number] NIKITA NIXON MD Main - [facility] [address] [place] [phone] 05/26/2023 15:16:02 05/27/2023 15:30:59 Urinary symptoms [id number] R39.9 Evaluation in the field was performed by my patient observation assistant colleague, as noted above, I provided real-time [...] acces to her urine culture results at [facility].P t is allergic at Augmentin ( reports tongue swelling and throat closing ) , so I don't feel comfortabl e giving Ceftriaxon e IV . Will start bactrim BID x7 days ( first dose given by patient observation assistant ). D/C levaquin ( usual dose for [...] worsening CVA tenderness or any other concerns. [id number] Stacy June MD Main - [address] [phone] 05/29/2023 19:08:38 05/29/2023 21:40:20 Acute urinary tract infection 812321275 N39.0 Health Concerns Section Related Observation LastModified by Organization Detai ls LastModified Time None Recorded Concern Status LastModified by Organization Details LastModified Time None Recorded Advance Directives Directive None Recorded Payers Insurance Date Sequence Insurance Name Policy Number Policy Chan Covered Member ID Chan Member ID Guarantor Name 05/26/2023 1 [facility] - DOS ON OR AFTER 2022 - DUAL ELIGIBLE - FDC OPTIONS AND ONE CARE (MEDICARE REPLACEMENT/ADV ANTAGE - HMO) Basilia Sawyer [id number] Basilia Sawyer Notes Date Note Type Note [...] ...................... ...................... ...................... ...................... ...................... ...................... ......... Caustic Room Operator Note From Arsalan Rosenbaum: Pt reports winters placed at [facility] on 05/18. Since returning [...] +NOEMÍ, +NIT, +PRO, +BLO. UC sent to [facility]. Pt treated with bactrim DS. Pt thoroughly educated on catheter care and s/sx that would indicate the ED. Pt to f/u with urology on Sunday. ...................... ...................... ...................... ...................... ...................... ...................... ......... Disposition: Sharon NIKITA NIXON MD [address] [facility], [place], [address], [employer] 05/26/2023 19:05:44 05/29/2023 text/html CRC Nurse Triage Notes (Garrett Dias): Reason For Request: Pt is reporting issues lately with low blood pressure>just getting over a UTI and states not feeling right>pulse is going from high to normal>lowest top number reading was 72/73 pulse at 83, which was taken at 5pm BP at 5:20pm 106/66 Chief Complaints: Syncope/Dizziness/Ligh theadedness Allergies: Compazine Comments: Herb Counselor verified the member's name//address and phone number [...] Cath removed yesterday. Kyra June MD [address] [facility], [place], [address], [employer] 05/29/2023 19:28:59 OBGyn Episode No OBEpisode recorded.
[2024-10-30 09:41] LABS: Hematocrit 38.3 % (37.0-47.0); Hemoglobin 13.1 g/dl (12.0-16.0); Mean Corpuscular HGB Conc 34.2 g/dl (31.0-35.0); Mean Corpuscular Hemoglobin 29.6 pg (27.0-33.0); Mean Corpuscular Volume 86.7 fL (80.0-98.0); NRBC Abs Auto 0.000 X10*3/uL (0.0-0.012); NRBC Pct Auto 0.0 /100WBC (0.0-0.2); Platelet Count 253 X10*3/uL (160-400); Red Blood Count 4.42 X10*6/uL (4.20-5.50); White Blood Count 4.6 X10*3/uL (4.8-10.8)
[2024-10-30 10:17] LABS: Alanine Aminotransferase 17 U/L (0-31); Albumin Level 4.5 g/dL (3.5-5.0); Alkaline Phosphatase 44 U/L (39-117); Anion Gap 12 (12-20); Aspartate Amino Transferase 22 U/L (5-31); Blood Urea Nitrogen 8 mg/dL (9-16); Calcium 9.3 mg/dL (8.4-10.2); Carbon Dioxide 28 mmol/L (22-29); Chloride 99 mmol/L (96-108); Cholesterol 253 mg/dL (<200); Estimated Glomerular Filt Rate > 60; HDL Cholesterol 53 mg/dL (>40); Potassium 4.5 mmol/L (3.3-5.1); Sodium 134 mmol/L (135-145); Total Protein 7.0 g/dL (6.5-8.0); Triglycerides 107 mg/dL (<150)
== END 2024-10-30 08:50 | disposition home or self-care (01) ==
LOC: HO.LAB 08:49
PROVIDERS: PCP Physician Assistant; Visit Provider Physician Assistant
DX: E78.2 Mixed hyperlipidemia (principal); E06.3 Autoimmune thyroiditis
CPT/HCPCS: 36415; 80053; 80061; 84443; 85027

== ENCOUNTER 2024-11-05 14:01 | Outpatient (AMB) | payer OTHER, SELFPAY ==
[2024-11-05 14:19] VITALS: BP 106/78; PULSE 70; O2SAT 99; BMI 22.3
--- NOTE | 2024-11-05 14:19 | A.OFFPC_ITS ---
Vital Signs 11/05/24 14:19 Height 5 ft 5 in Weight 134 lb BMI 22.3 BP 106/78 Blood Pressure Location Lt brachial Position Sitting Pulse 70 Pulse Source Pulse Oximeter Pulse Oximetry (%) 99 Oxygen Delivery Method Room Air Intake Visit Reasons: 3 Month F/U Machine Setup Operator Required: No Accompanied by: Self / Same As Patient Allergies amoxicillin (From AUGMENTIN) Allergy (Severe, Verified 11/05/24 14:35) Anaphylaxis clavulanic acid (From AUGMENTIN) Allergy (Severe, Verified 11/05/24 14:35) Anaphylaxis banana Allergy (Unknown, Verified 11/05/24 14:35) Unknown ketorolac (From Toradol) Allergy (Unknown, Verified 11/05/24 14:35) Anaphylaxis kiwi Allergy (Unknown, Verified 11/05/24 14:35) Unknown prochlorperazine (From COMPAZINE) Allergy (Unknown, Verified 11/05/24 14:35) INVOLUNTARY SPASMS [id number]-LyI Reductase Inhibitor Allergy (Verified 11/05/24 14:35) Muscle cramps Medication List - Last Reconciled 11/05/24 by Leonardo Perez PA-C acetaminophen-codeine 300-30 mg 1 tab PO Q8H PRN 7 days aspirin (Adult Aspirin Regimen) 81 mg PO DAILY levothyroxine 100 mcg PO DAILY lisinopril 20 mg PO DAILY 90 days miscellaneous medical supply (Blood Pressure Cuff) As directed Tobacco use date assessed: 06/17/24 Dental Screening Dental Screen Date: 06/17/24 HPI 3 Month F/U HPI Details Patient is a 54-year-old female here today for a follow-up visit. Patient's past medical history significant for hypertension, hyperlipidemia, Billy's hypothyroidism generalized anxiety disorder. .. Hyperlipidemia: Most recent labs showing very improved total cholesterol and LDL, much improved triglycerides of most recent lipid panel as well. She reports reducing her decaf coffee. . She has been tried on statin therapy though had side effects that were intol erable. She reports she feels much better now being off of statin therapy. Her cholesterol issues may be related to her Billy's thyroid condition .. Hypothyroidism: Most recent TSH stable. She continues on levothyroxine 100 mcg tablets use for hypo versus hyper thyroidism symptoms. She is now seeing an slab inspector at [facility]. She is concerned she continues to have a thyroid issues. She is considering a total thyroidectomy . .. Hypertension: The patient has been monitoring her blood pressure at home, noting occasional low readings, such as 90/60 mmHg. She has agreed to reduce her lisinopril dosage to 10 mg due to weight loss and lower blood pressure readings. .. COPD: Is a former smoker though has not had any pulmonary compromise. Does not use any inhalers as does not have any active wheezing or shortness for breath. She continues to try to stay fairly active and walks on a daily basis. .. Laboratory Tests 05/01/23 03/10/24 05/01/24 12:26 09:47 06:48 AST 45 H ALT 70 H Cholesterol 296 H 347 H LDL Cholesterol, C alc 240 H TSH 1.32 U Free Metanephrin e 05/12/24 06/12/24 05:30 08:52 AST 20 ALT 27 Cholesterol 286 H LDL Cholesterol, C alc 188 H TSH 0.14 L U Free Metanephrin e 79 L Laboratory Tests 08/01/24 10/30/24 09:41 09:06 RBC 4.42 Sodium 134 L Creatinine 0.71 0.66 Cholesterol 253 H LDL Cholesterol, C alc 179 H TSH 0.50 1.04 PFSH Medical History Neha-Danlos syndrome Neuropathy Thrombophlebitis of left leg Rectocele Elevated cholesterol History of cervical cancer Family history of colon cancer Nicotine dependence, cigarettes, uncomplicated HTN (hypertension) Family history of pancreatic cancer COPD (chronic obstructive pulmonary disease) Dysphagia Vitamin D deficiency Hypothyroidism (~1999) Surgical History History of loop electrical excision procedure (LEEP) History of endometrial ablation History of tonsillectomy (~1976) History of History of throat surgery (~2011) Family History Mother Alzheimer's dementia CVD (cardiovascular disease) Maternal Grandfather Pancreatic cancer Social History Household Members: Children Household Members Other:: lives at home with 20-year-old daughter Housing: Apartment Do you presently have visiting nurse or other home services: No Alcohol intake: never Comment: vaginal area Patient Tobacco Use Status: Former Tobacco user Tobacco use type: Cigarette Cigarette Packs Per Day: 0.5 Cigarettes Per Day: 5 Years Smoked: (onset 11, 1ppd x 40yrs, now 1/4ppd, 40pyh) e-Cigarette/Vaping Use: Never Used Second Hand Smoke Exposure: Yes Substance Use Type: Marijuana Advance Directives Date on File: 09/11/22 service: No Current occupational status: disabled Cognitive needs: No Hearing needs: No Vision needs: No Female Reproductive History Menstrual Age of Menarche: 11 Questionnaire PHQ-9 Over the last 2 weeks, how often have you been bothered by any of the following problems? 1. Little interest or pleasure in doing things: not at all 2. Feeling down, depressed, or hopeless: not at all 3. Trouble falling or staying asleep, or sleeping too much: not at all 4. Feeling tired or having little energy: several days 5. Poor appetite or overeating: not at all 6. Feeling bad about yourself - or that you are a failure or have let yourself or your family down: not at all 7. Trouble concentrating on things, such as reading the newspaper or watching television: not at all 8. Moving or speaking so slowly that other people could have noticed. Or the opposite - being so fidgety or restless that you have been moving around a lot m ore than usual: not at all 9. Thoughts that you would be better off or of hurting yourself in some way: not at all Total score: 1 Source: Developed by Drs. 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 Thrive Questionnaire Date Thrive assessed: 09/09/24 I am a: Patient What is your living situation today?: I have a steady place to live Within the past 12 months, did the food you bought not last and you didn't have the money to get more?: Never true Within the past 12 months, did you worry whether your food would run out before you got money to buy more?: Never true Do you have trouble paying for medicines?: No Do you have trouble getting transportation to medical appointments?: No Do you have trouble paying your heating and electricity bill?: No Do you have trouble taking care of your child, family member or friend?: No Do you have trouble with day-to-day activities such as bathing, preparing meals, shopping, managing finances, etc.?: No Are you currently unemployed and looking for a job?: No Are you interested in more education?: No Please select the resources that you would like help with: None Currently or been in a relationship where the following occur: No concerns reported THRIVE Score: 0 STONE-7 AMB Questionnaire STONE-7 Date STONE - 7 assessed: 06/17/24 Feeling nervous, anxious, or on edge: 0 = Not at all Not being able to stop or control worryin = Not at all Worrying too much about different things: 0 = Not at all Trouble relaxin = Not at all Being so restless that it is hard to sit still: 0 = Not at all Becoming easily annoyed or irritable: 0 = Not at all Feeling afraid as if something awful might happen: 0 = Not at all Total STONE-7 score (0-4 normal; 5-9 mild; 10-14 moderate; 15-21 severe): 0 Source: Developed by Drs. 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 Review of Systems Const Denies headache(s) Eyes Denies loss of vision ENT Denies vertigo, Denies dizziness, Denies headache(s) and Denies sore throat Card Denies chest pain, Denies leg edema and Denies lightheadedness Resp Denies cough, Denies hemoptysis and Denies wheezing GI Denies abdominal pain, Denies melena, Denies constipation, Denies diarrhea and Denies vomiting Denies urinary frequency, Denies dysuria and Denies urinary urgency Musc Denies arthralgias, Denies joint swelling, Denies numbness and Denies tingling Neuro Denies Abnormal speech present, Denies behavioral changes, Denies vertigo, Denies dizziness, Denies headache(s), Denies loss of vision, Denies memory loss, Denies numbness and Denies tingling Psych Denies anxiety, Denies behavioral changes, Denies depression, Denies memory loss and Denies panic attacks Lawrence/Lymph Denies easy bleeding and Denies easy bruising Aller/Immun Denies wheezing Physical exam (Primary Care) Vital Signs: Last Vital Signs Pulse 70 11/05/24 14:19 BP 106/78 11/05/24 14:19 Pulse Ox 99 11/05/24 14:19 Oxygen Delivery Method Room Air 11/05/24 14:19 BMI result Body Mass Index 22.3 Tobacco/Smoking Status: Tobacco use Status Tobacco use date assessed 06/17/24 11/05/24 14:25 Patient Tobacco Use Status Former Tobacco user 11/05/24 14:25 Tobacco use type Cigarette 11/05/24 14:25 e-Cigarette/Vaping Use Never Used 11/05/24 14:25 PHQ-9: PHQ-9 Score PHQ-9: Total score 1 11/05/24 14:36 Thrive Assessment: Date of Thrive Assessment Date Thrive assessed 09/09/24 11/05/24 14:25 Currently or been in a relationship where the following occur: No concerns reported Const General: healthy appearing, no acute distress, alert and awake Nutritional Appearance: well nourished Orientation/consciousness: oriented to person, oriented to place and oriented to time HENMT Ears: TM's normal bilaterally General nose exam: Normal nasal mucous membranes and turbinates present Eyes Conjunctivae: conjunctivae normal Sclerae: sclerae normal Pupils: Equal, round and reactive pupils present Neck Neck: Yes no lymphadenopathy and Yes no JVD Thyroid: Thyroid normal Carotids: no bruits Resp Effort & Inspection: normal respiratory effort and not tachypneic Auscultation: no crackles, no rales, no rhonchi and no wheezes Cardio Rate: regular rate Rhythm: regular rhythm Heart sounds: no murmurs and normal S1 and S2 GI Palpation (GI): Soft to palpation, nontender, no hepatomegaly and no splenomegaly Auscultation: normal bowel sounds Skin General skin exam: no rashes or lesions noted and dry skin Neuro General: oriented to person, oriented to place and oriented to time Cranial nerves: Yes Equal, round and reactive pupils present Speech: No Abnormal speech present Gait exam (Neuro): Normal gait present Motor exam (neuro): no tremor noted Extrem Right upper extremity: full ROM Left upper extremity: full ROM Right lower extremity: full ROM; no edema Left lower extremity: full ROM; no edema Psych Mental Status: mental status grossly normal Speech and movement: Normal speech and movement present Affect: normal affect Attitude: cooperative Thought process: Normal thought process present Coding Level of Care Code Est Pt Level 4 (02396) Diagnoses Primary hypertension I10 Hypertension type: primary hypertension 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 Has lost weight since last office visit. Will decrease her lisinopril to 10 mg to reduce occurrences of hypo tension. . Goal blood pressures to remain below 140/90 and above 100/60 (2) Hypothyroidism: Onset Date: ~1999 Comment: (dx in 1999, was dx Billy's disease in 2011) Code(s): E03.9 - Hypothyroidism, unspecified Category: Medical Qualifiers: 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 Qualified Code(s): E03.8 - Other specified hypothyroidism; E06.3 - Autoimmune thyroiditis Plan: Patient is followed by slab inspector at [facility]. Does take 100 mcg of levothyroxine depending on her hyper or hypothyroid symptoms. There was thought that her thyroid is causing a lot of her cardiac symptoms. Her lipid panel continues to be very elevated though we are attributing this to her mild functioning thyroid. She did get endoscopy and colonoscopy recently and there are some concerns for a malabsorption. Will she will be following up with the [place] nutrition aide to discuss this. (3) HLD (hyperlipidemia): Code(s): E78.5 - Hyperlipidemia, unspecified Category: Medical Qualifiers: Hyperlipidemia type: mixed hyperlipidemia Qualified Code(s): E78.2 - Mixed hyperlipidemia Plan: As above patient's lipid panel continues to show elevated total cholesterol and LDL. Her triglycerides have improved significantly since last lab draw.. We are attributing her cholesterol elevations in her mild functioning thyroid. She has tried statin therapy in the past though had rhabdo (4) COPD (chronic obstructive pulmonary disease): Code(s): J44.9 - Chronic obstructive pulmonary disease, unspecified Category: Medical Qualifiers: COPD type: unspecified COPD Qualified Code(s): J44.9 - Chronic obstructive pulmonary disease, unspecified Plan: Patient has a previous smoker. She reports no pulmonary symptoms. Does not use any maintenance inhaler albuterol inhaler. Orders: Orders TSH reflex Free T4 11/05/24 E03.8 - Other specified hypothyroidism, E06.3 - Autoimmune thyroiditis Comprehensive [place]. Panel Fast 11/05/24 I10 - Essential (primary) hypertension Complete Blood Count no Diff 11/05/24 I10 - Essential (primary) hypertension Phosphorus 11/05/24 E01.0 - Iodine-deficiency related diffuse (endemic) goiter Vitamin D 25-OH Total 11/05/24 E55.9 - Vitamin D deficiency, unspecified Lipid Panel 11/05/24 E78.2 - Mixed hyperlipidemia Medications: New lisinopril 10 mg PO DAILY 90 tabs 1RF 90 days I10 - Essential (primary) hypertension Discontinued lisinopril Discontinued Reason: Doctor's Order 20 mg PO DAILY 90 days 90 tabs 1RF I10 - Essential (primary) hypertension
--- OUTSIDE RECORDS SUMMARY | 2024-11-05 14:46 | XMS_ITS | Data Portability ---
Author Organization [facility], [facility] Address [address] [place] [phone] Care Team Providers Care Seafood Specialist Name Role Phone [facility] [...] None recorded. Lab culture, urine 2023 024 [place] (Centralized Electronic Ordering - All Locations), Patient Can Go To The Location Of Their Choice, [id number] 18:18:26 urinalysis , dipstick 2023 024 [facility], [address] [place] [address], [phone] 4 19:05:08 Referral None recorded. Procedures None recorded. Surgeries None recorded. Imaging None recorded. Medication Orders Bactrim DS 800 mg-160 mg tablet 2023 024 [id number], [address], [place], [id number], 4 15:19:21 Bactrim DS 800 mg-160 mg tablet 2023 [id number], [address], [place], [phone], 15:19:12 Patient TargetsNo targets recorded. Patient InstructionsNo [...] Leukocytes Positi ve Not Available Main - [facility] ed [address] [place] [address], [phone] 05/26/2023 19:03:44 05/26/19 24 05/26/2023 urina lysis , dipst ick Nitrite positi ve Not Available Main - [facility] ed [address] [place] [address], [phone] 05/26/2023 19:03:44 05/26/19 24 05/26/2023 urina lysis , dipst ick Urobilinogen negati ve Not Available Main - [facility] ed [address] [place] [address], [phone] 05/26/2023 19:03:44 05/26/19 24 05/26/2023 urina lysis , dipst ick Protein Positi ve Not Available Main - [facility] ed [address] [place] [address], [address] [place] [address] 05/26/2023 19:03:44 05/26/19 24 05/26/2023 urina lysis , dipst ick pH 6.5 Not Available Main - [facility] [address] [place] [address], [address] [place] [address] 05/26/2023 19:03:44 05/26/19 24 05/26/2023 urina lysis , dipst ick Blood Positi ve Not Available Main - [facility] [address] [place] [address], [address] [place] [address] 05/26/2023 19:03:44 05/26/19 24 05/26/2023 urina lysis , dipst ick Specific [place] 1.015 Not Available Main - [facility] [address] [place] [address], [address] [place] [address] 05/26/2023 19:03:44 05/26/19 24 05/26/2023 urina lysis , dipst ick Ketone negati ve Not Available Main - [facility] [address] [place] [address], [address] [place] [address] 05/26/2023 19:03:44 05/26/19 24 05/26/2023 urina lysis , dipst ick Bilirubin negati ve Not Available Main - [facility] ed [address] [place] [address], [address] [place] [address] 05/26/2023 19:03:44 05/26/19 24 05/26/2023 urina lysis , dipst ick Glucose negati ve Not Available Main - [facility] [address] [place] [address], [address] [place] [address] 05/26/2023 19:03:44 05/26/19 24 05/26/2023 urina lysis , dipst ick Appearance no sedime nts Not Available Main - [facility] [address] [place] [address], [address] [place] [address] 05/26/2023 19:03:44 05/26/19 24 05/26/2023 urina lysis , dipst ick Color orange Not Available Main - [facility] [address] [place] [address], [address] [place] [address] 05/26/2023 19:03:44 Result Notes None recorded. Medical [...] cm 98.8 [degF] 98 % 98 % 52500.9 6 g 155/106 mm[Hg] Not Available [facility] 4 15:16:10 Date Recorded Body temperature Respiratory rate Oxygen saturation Oxygen saturation in Arterial blood by Pulse oximetry Heart rate Systolic And Diastolic Provider Name and Address Organization Details Last Updated DateTime 4 98.9 [degF] 16 /min 100 % 100 % 78 /min 138/88 mm[Hg] Not Available [facility] 4 19:08:41 Social History None recorded. Functional Status None recorded. Mental Status None recorded. Family History Nothing Reported. Medical History No medical history recorded. Gynecological HistoryNo gynecological history recorded. Obstetrics History GPAL:G 0 P 0 0 0 0 Past Encounters Encounter ID Performer Location Encounter Start Date Encounter Closed Date Diagnosis/Indication Diagnosis SNOMED-CT Code Diagnosis ICD10 Code Diagnosis Note [id number] NIKITA NIXON MD Main - [facility] [address] [place] [phone] 05/26/2023 15:16:02 05/27/2023 15:30:59 Urinary symptoms 628784604 R39.9 Evaluation in the field was performed by my application programmer analyst colleague, as noted above, I provided [...] acces to her urine culture results at [facility].P t is allergic at Augmentin ( reports tongue swelling and throat closing ) , so I don't feel comfortabl e giving Ceftriaxon e IV . Will start bactrim BID x7 days ( first dose given by application programmer analyst ). D/C levaquin ( usual dose [...] worsening CVA tenderness or any other concerns. [id number] Stacy June MD Main - [address] [phone] 05/29/2023 19:08:38 05/29/2023 21:40:20 Acute urinary tract infection [id number] N39.0 Health Concerns Section Related Observation LastModified by Organization Detai ls LastModified Time None Recorded Concern Status LastModified by Organization Details LastModified Time None Recorded Advance Directives Directive None Recorded Payers Insurance Date Sequence Insurance Name Policy Number Policy Chan Covered Member ID Chan Member ID Guarantor Name 05/26/2023 1 [facility] - DOS ON OR AFTER 2022 - DUAL ELIGIBLE - [employer] OPTIONS AND ONE CARE (MEDICARE REPLACEMENT/ADV ANTAGE - HMO) Basilia Sawyer [id number] Basilia Sawyer Notes Date Note Type Note [...] ...................... ...................... ...................... ...................... ...................... ...................... ......... Rounder Hand Note From Arsalan Rosenbaum: Pt reports winters placed at [facility] on 05/18. Since returning [...] +NOEMÍ, +NIT, +PRO, +BLO. UC sent to [facility]. Pt treated with bactrim DS. Pt thoroughly educated on catheter care and s/sx that would indicate the ED. Pt to f/u with urology on Sunday. ...................... ...................... ...................... ...................... ...................... ...................... ......... Disposition: Sharon NIKITA NIXON MD [address] [facility], [place], [phone], [employer] 05/26/2023 19:05:44 05/29/2023 text/html CRC Nurse Triage Notes (Garrett Dias): Reason For Request: Pt is reporting issues lately with low blood pressure>just getting over a UTI and states not feeling right>pulse is going from high to normal>lowest top number reading was 72/73 pulse at 83, which was taken at 5pm BP at 5:20pm 106/66 Chief Complaints: Syncope/Dizziness/Ligh theadedness Allergies: Compazine Comments: Gang Supervisor verified the member's name//address and phone number [...] Cath removed yesterday. Kyra June MD [address] [facility],[address], [place], [phone], [employer] 05/29/2023 19:28:59 OBGyn Episode No OBEpisode recorded.
== END 2024-11-05 14:51 | disposition home or self-care (01) ==
LOC: HO.HMCH 14:03
PROVIDERS: PCP Physician Assistant; Visit Provider Physician Assistant
DX: I10 Essential (primary) hypertension (principal); J44.9 Chronic obstructive pulmonary disease, unspecified; E03.8 Other specified hypothyroidism; E06.3 Autoimmune thyroiditis; E78.2 Mixed hyperlipidemia

== ENCOUNTER → 2024-11-05 14:01 | Outpatient (BNVA) | payer OTHER, SELFPAY | PROVIDERS: PCP Physician Assistant; Visit Provider Physician Assistant | DX: I10 Essential (primary) hypertension (principal); E78.5 Hyperlipidemia, unspecified; E06.3 Autoimmune thyroiditis; F41.1 Generalized anxiety disorder; J44.9 Chronic obstructive pulmonary disease, unspecified; E78.2 Mixed hyperlipidemia; E01.0 Iodine-deficiency related diffuse (endemic) goiter; E55.9 Vitamin D deficiency, unspecified | CPT/HCPCS: 96127; 99212 ==

== ENCOUNTER 2024-12-26 09:32 | Outpatient (REF) | payer OTHER, SELFPAY ==
--- OUTSIDE RECORDS SUMMARY | 2013-03-10 01:00 | XMS_ITS | Encounter Summary ---
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 Never True 12/23/2024 Within the past 6 months the food we bought just didn't last and we didn't have enough money to get more. Never True Residential Stability Answer Date Recor ded What is your housing situation today? I have fer sing 12/23/2024 How many times have you move d in the past 12 months? Zero (I did not move) 12/23/2024 Paying for Meds Answer Date Recorded Do you have trouble paying for medicines? No 12/23/2024 Paying Utility Bills Answer Date Record ed Do you have trouble paying your heating or elect ricity bill? No 12/23/2024 Transportation Answer Date Recorded Has the lack of transportati on kept you from medical appointments or from getting medications? No 12/23/2024 Digital Access Answer Date Recorded No 12/23/2024 Yes 12/23/2024 Do you have reliable internet access at home? Ye s 12/23/2024 Do you have a device (e.g., phone, tablet, computer) with a working camera? Yes 12/23/2024 Intimate Partner Violence Answer Date R ecorded Are you denied basic needs s uch as food, clothing, or medical care? No 12/23/2024 In the past 12 months have y ou been in a relationship with a person who hurts, threatens, or tries to control you? No 12/23/2024 Are you denied basic needs s uch as food, clothing, or medical care? No 12/23/2024 In the past 12 months have y ou been in a relationship with a person who hurts, threatens, or tries to control you? No 12/23/2024 Comments No Sex and Gender Information Value Date Recorded Sex Assigned at Female 02/06/2018 12:12 PM EDT Legal Sex Female 9:36 PM EDT Gender Identity Female 02/06/2018 12:12 PM EDT Sexual Orientation Straight 08/02/2020 7: 11 AM EDT documented as of this encounter Functional Status * Calculated C-SSRS Risk Score (Lifetime/Recent) Answer Date of Assessment Author No Risk Indicated 12/23/2024 1:46 PM EDT Jeanne Steel * [place] Suicide Severity Rating Scale (Screener/Recent Self-Report) Question Answer Date of Assessment Author 1. Wish to be (Past 1 Month) No 025 1:46 PM EDT Jeanne Steel 2. Non-Specific Active Suici bruce Thoughts (Past 1 Month) No 12/23/2024 1:46 PM EDT Luisa Steel sa 6. Suicidal Behavior (Lifetime) No 1:46 PM EDT Jeanne Steel documented as of this encounter Plan of Treatment Upcoming Encounters Date Type Department Care Team (Late st Contact Info) Description 03/23/2025 10:00 AM EST Office Visit [facility] [address] [facility] 3[address], [address] [place] [address] Farhat Caro, [address] [facility] [address] [place] [address] documented as of this encounter Procedures Procedure [...] Not on filedocumented in this encounter Additional Source Comments The information contained in this document represents components of the legal health record. It is not the complete legal health record.[facility]
--- OUTSIDE RECORDS SUMMARY | 2024-12-23 09:27 | XMS_ITS | Encounter Summary ---
Author Organization [facility] Address [address] [place] [address] [place] [address] Phone Care Team Providers Care High Rigger Name Role Phone Nichole Cabezas AIR SUPPORT CONTROL OFFICER Unavailable [phone] Leonardo Perez Primary Care Provider + Self-Referred, Patient Unavailable Unavailab le Encounter Details Date Type Department Care Team (Latest Contact Info) Description 12/23/2024 9:27 AM EDT - 12/23/2024 4:02 PM EDT Hospital Encounter [facility], [facility] [address] [place] [address] Cory Diamond MD, MPH [address] [facility], [address] [place] [address] [email or web address] Arrived Discharge Disposition: Home or Self Care Social History Tobacco Use Types Packs/Day Years [...] your housing situation today? I have fer dubois 12/23/2024 How many times have you move [...] 12/23/2024 1:46 PM EDT Jeanne Steel * [place] Suicide Severity Rating Scale (Screener/Recent Self-Report) Question Answer Date of Assessment Author 1. Wish to be (Past 1 Month) No 025 1:46 PM EDT Jeanne Steel 2. Non-Specific Active Suici bruce Thoughts (Past 1 Month) No 12/23/2024 1:46 PM EDT Luisa Steel sa 6. Suicidal Behavior (Lifetime) No 5 1:46 PM EDT Jeanne Steel documented as of this encounter Medications at Time of Discharge acetaminophen-cod eine (TYLENOL #3) 300-30 mg per tablet Take 1 tablet by mouth every 8 (eight) hours as needed. cholecalciferol (VITAMIN D3) 25 MCG (1,000 unit) tablet Take 1 tablet (1,000 Units total) by mouth daily. 90 tablet 2 11/24/2024 levothyroxine (SYNTHROID, LEVOTHROID) 75 MCG tablet Take 1 tablet (75 mcg total) by mouth every morning. 90 tablet 2 11/24/2024 lisinopril (PRINIVIL,ZESTRIL ) 20 MG tablet Take 10 mg by mouth daily. documented as of this encounter Plan of Treatment Upcoming Encounters Date Type Department Care Team (Late st Contact Info) Description 03/23/2025 10:00 AM EST Office Visit [facility] [address] [place] [address] 3rd Floor, [address] [place], [place] [phone] Farhat Caro DO [address] [place] [address] [place] [address] [phone] [email or web address] documented as of this encounter Procedures Procedure Name Priority Date/Time Associated Diagnosis Comments BD DXA AXIAL (SPINE) WITH HIP Routine 12/23/2024 9:40 AM EDT Postmenopausal Hyperparathyroidism, unspecified documented in this encounter Results * BD DXA AXIAL (SPINE) WITH HIP (12/23/2024 9:40 AM EDT) Anatomical Region Laterality Modality Bone Density Bone Density 12/23/2024 9:39 AM EDT Impressions 12/24/2024 1:07 PM EDT Interpretation: Osteopenia. Narrative 12/24/2024 1:07 PM EDT Referred By: CORY DIAMOND Indications: Postmenopausal and Primary Hyperparathyroidism Scanner: [employer] A with serial# of [id number] located at [facility] Bone Density Scan (DXA) 12/23/24 Details of prior DXA scans are available by clicking View Full Report BMD T- Z- Skeletal Site gm/cm2 score score BMD Change Since Prior Scan ------ ----- ----- PA Spine (L1 L2 L3) 0.949 -0.60 0.40 N/A Total Hip (Left) 0.767 -1.40 -0.70 N/A Femoral Neck (Left) 0.611 -2.10 -1.10 N/A Total Hip (Right) 0.743 -1.60 -0.90 N/A Femoral Neck (Right) 0.584 -2.40 -1.30 N/A ------ ----- ----- * Denotes significant change when >= 0.022 g/cm2 for the spine, 0.027 g/cm2 for the total hip, 0.029 g/cm2 for the femoral neck. Interpretation: Osteopenia. Technical Quality: Imaging of all sites was of adequate quality. FRAX: Based on FRAX(r) 3.6 ([place] White female), this patient's likelihood of hip fracture is 1.4% and major osteoporotic fracture is 15.6% over the next 10 years. The patient reported the following risks of fracture on a questionnaire: parental history of hip fracture. Reviewed By: Amy Nunez MD on 12/24/2024 13:07:18 Additional Information: -World Health Organization criteria classify adults based on lowest T-score at PA spine, hip or forearm: Normal (T-score >= -1.0), Osteopenia (T-score between -1 and -2.5), or Osteoporosis (T-score <= -2.5). At [facility], T-scores are compared to peak bone density of a young white gender matched reference population. - For premenopausal women and men under the age of 50, Z-scores (comparison to age, gender, and ethnicity matched reference population) are used: Above expected range for age (Z-score >= 2.0), Within expected range of age (Z-score 1.9 to -1.9), or Below expected range for age (Z-score <= -2.0). - The Bone Health and Osteoporosis Foundation recommends that treatment be considered in men aged more than 50 years and in postmenopausal women with ANY of the following: Prior hip or vertebral fractures; T-score of <= -2.5 at the PA spine or hip; or 10 year fracture probability by FRAX of >= 3% for the hip or >= 20% for major osteoporotic fracture. - The FRAX algorithm (https://www.aleks.ac.uk/FRAX/tool.aspx) is designed to predict 10-year fracture risk in treatment-naive adults between the ages of 40 and 90. It is not intended to be used in those receiving pharmacologic osteoporosis treatment. - The TBS is derived from the texture of the DXA spine image and has been shown to be related to bone microarchitecture and fracture risk. This data provides information independent of BMD value. It adds to fracture risk assessment with a FRAX adjusted for TBS score. If your patient had a TBS and qualified for a FRAX score, the reported FRAX score has been adjusted for TBS. TBS Score Interpretation 1.350 and greater Normal bone microarchitecture 1.200 to 1.350 Partially degraded bone microarchitecture 1.200 and less Degraded bone microarchitecture - Including race/ethnicity in the generation of T- or Z-scores or in the FRAX calculation is complicated, and currently undergoing active review to ensure that we can give patients the best information on their risk of fracture. - Some prior studies may not be compatible with our comparison software. - Click on View Full Report to see subsequent pages with images and prior bone density results. Procedure Note Amy Nunez MD - 12/24/2024 Referred By: CORY DIAMOND Indications: Postmenopausal and Primary Hyperparathyroidism Scanner: [employer] A with serial# of [id number] located at [facility] Bone Density Scan (DXA) 12/23/24 Details of prior DXA scans are available by clicking View Full Report BMD T- Z- Skeletal Site gm/cm2 score score BMD Change Since Prior Scan ------ ----- PA Spine (L1 L2 L3) 0.949 -0.60 0.40 N/A Total Hip (Left) 0.767 -1.40 -0.70 N/A Femoral Neck (Left) 0.611 -2.10 -1.10 N/A Total Hip (Right) 0.743 -1.60 -0.90 N/A Femoral Neck (Right) 0.584 -2.40 -1.30 N/A ------ ----- * Denotes significant change when >= 0.022 g/cm2 for the spine, 0.027g/cm2 for the total hip, 0.029 g/cm2 for the femoral neck. Interpretation: Osteopenia. Technical Quality: Imaging of all sites was of adequate quality. FRAX: Based on FRAX(r) 3.6 (U.S. White female), this patient's likelihoodof hip fracture is 1.4% and major osteoporotic fracture is 15.6% over thenext 10 years. The patient reported the following risks of fracture on a questionnaire: parental history of hip fracture. Reviewed By: Amy Nunez MD on 12/24/2024 13:07:18 Additional Information: -World Health Organization criteria classify adults based on lowestT-score at PA spine, hip or forearm: Normal (T-score >= -1.0), Osteopenia (T-score between -1 and -2.5), or Osteoporosis (T-score <= -2.5). At [facility], T-scores are compared to peak bone density of a young white gender matched reference population. - For premenopausal women and men under the age of 50, Z-scores(comparison to age, gender, and ethnicity matched reference population) are used:Above expected range for age (Z-score >= 2.0), Within expected range of age (Z-score 1.9 to -1.9), or Below expected range for age (Z-score <= -2.0). - The Bone Health and Osteoporosis Foundation recommends that treatment be considered in men aged more than 50 years and in postmenopausal women with ANY of the following: Prior hip or vertebral fractures; T-score of <= -2.5 at the PA spine or hip; or 10 year fracture probability by FRAX of >= 3%for the hip or >= 20% for major osteoporotic fracture. - The FRAX algorithm (https://www.aleks.ac.uk/FRAX/tool.aspx) is designed to predict 10-year fracture risk in treatment-naive adultsbetween the ages of 40 and 90. It is not intended to be used in those receiving pharmacologic osteoporosis treatment. - The TBS is derived from the texture of the DXA spine image and has been shown to be related to bone microarchitecture and fracture risk. This data provides information independent of BMD value. It adds to fracture risk assessment with a FRAX adjusted for TBS score. If your patient had a TBSand qualified for a FRAX score, the reported FRAX score has been adjusted for TBS. TBS Score Interpretation 1.350 and greater Normal bone microarchitecture 1.200 to 1.350 Partially degraded bone microarchitecture 1.200 and less Degraded bone microarchitecture - Including race/ethnicity in the generation of T- or Z-scores or in the FRAX calculation is complicated, and currently undergoing active review to ensure that we can give patients the best information on their risk of fracture. - Some prior studies may not be compatible with our comparison software. - Click on View Full Report to see subsequent pages with images andprior bone density results. IMPRESSION: Interpretation: Osteopenia. us Cory Diamond MD, MPH IMG BD BONE DENSITY DEXA Final Result documented in this encounter Visit Diagnoses Diagnosis Postmenopausal Asymptomatic postmenopausal status (age-related) (natural) Hyperparathyroidism, unspecified documented in this encounter Care Teams High Rigger Relationship Specialty [place] [address] [place] [address] PCP - General 05/08/22 Nichole Cabezas CNP [address] [facility], [address] [place] [id number] [email or web address] Historical LMR Provider 02/12/17 Self-Referred, Patient 05/08/22 documented as of this encounter Additional Source Comments The information contained in this document represents components of the legal health record. It is not the complete legal health record.[facility]
--- OUTSIDE RECORDS SUMMARY | 2024-12-23 16:03 | XMS_ITS | Encounter Summary ---
Author Organization [facility] Address [address] [place] [phone] Phone Care Team Providers Care Story Editor Name Role Phone Nichole Cabezas BALL POINTS INSPECTOR Unavailable [phone] Leonardo Perez Primary Care Provider + Self-Referred, Patient Unavailable Unavailab le Reason for Visit * Reason Comments Palpitations Encounter Details Date Type Department Care Team (Late st Contact Info) Description 12/23/2024 4:03 PM EDT - 12/23/2024 6:23 PM EDT Emergency [facility] [address] [place] [address] Tashi Quintanilla MD [address] [place] [address] Zachary Graham MD, DPHIL [address] [place] [address]/[address] [address] [email or web address] Disposition: Home or Self Care Social [...] AM EDT documented as of this encounter Last Filed Vital Signs Vital Sign Reading Time Taken Comments Blood Pressure 155/96 12/23/2024 5:54 PM EDT Pulse 70 12/23/2024 5:54 PM EDT Temperature 36.5 C (97.7 F) 12/23/2024 5:54 PM EDT Respiratory Rate 18 12/23/2024 5:54 PM EDT Oxygen Saturation 97% 12/23/2024 5:54 PM EDT Inhaled Oxygen Concentration - - Weight 62.1 kg (137 lb) 12/23/2024 1:42 PM EDT Height 165.1 cm (5' 5 ) 12/23/2024 1:42 PM EDT Body Mass Index 22.8 12/23/2024 1:42 PM EDT documented in this encounter Functional Status * Calculated C-SSRS Risk Score (Lifetime/Recent) Answer Date of Assessment Author No Risk Indicated 12/23/2024 1:46 PM EDT Jeanne Steel * Delta Suicide Severity Rating Scale (Screener/Recent Self-Report) Question Answer Date of Assessment Author 1. Wish to be (Past 1 Month) No 025 1:46 PM EDT Jeanne Steel 2. Non-Specific Active Suici bruce Thoughts (Past 1 Month) No 12/23/2024 1:46 PM EDT Luisa Steel sa 6. Suicidal Behavior (Lifetime) No 1:46 PM EDT Jeanne Steel documented as of this encounter Discharge Instructions * Discharge Instructions* Yumiko Zhang PA-C - 12/23/2024 5:26 PM EDT Your phosphorus was 2.2. This was repleted with oral potassium phosphate. You are being prescribed a 3-day course. Please have your electrolytes monitored, specifically potassium and phosphorus, in the next several days. If a longer course is necessary, please follow-up with your primary care provider. Return if persistent palpitations, chest tightness, or any other new or concerning symptoms. Itwas a pleasure caring for you today. Thank you for choosing [facility]. documented in this encounter Medications at Time of Discharge [...] tablet Take 10 mg by mouth daily. potassium phosphate, monobasic, (K-PHOS) 500 mg (144 mg elemental potassium) tablet Take 1 tablet (500 mg total) by mouth 2 (two) times a day for 3 days. 6 tablet 12/23/2024 12/26/2024 documented as of this encounter ED Notes * Jeanne Steel - 12/23/2024 1:47 PM EDT Pt from home , she drove herself to the hospital. Pt is a 54 yo female. Pt reports that she last felt well 7 days ago. The pt states that around 7am the feeling in her chest got worse. Pt reports feeling palpitations that have increased in frequency. Discomfort feels like a crushing chest pain with radiation into the L jaw. It is rated at an 8 of 10. Pt reports that she has had prior incidents ofthe chest palpitations. During those times her thyroid level and phosphorus where off. Skin is normally colored warm and dry. Posterior and anterior lung razo are clear to auscultation. Positive CSM of extremities. Pt had breakfast around 3 am. Pt reports she has been drinking water and decaf tea. documented in this encounter Plan of Treatment Upcoming Encounters Date Type Department Care Team (Late st Contact Info) Description 03/23/2025 10:00 AM EST Office Visit [facility] [address] [place] [address] [address]rd [facility], [address] [place] [address] Farhat Caro, [address] [facility] [address] [place] [address] [email or web address] Scheduled Orders Name Type Priority Associated Diagnoses Orde r Schedule Lab Add On: TSH w reflex Lab STAT Once for 1 Occurrences starting 12/23/2024 until 12/23/2024 Lab Add On: magnesium Lab STAT Onc e for 1 Occurrences starting 12/23/2024 until 12/23/2024 documented as of this encounter Procedures Procedure Name Priority Date/Time Associated Diagnosis Comments TROPONIN STAT 12/23/2024 3:48 PM EDT TSH WITH REFLEX Routine 12/23/2024 2:35 PM EDT CBC AND DIFFERENTIAL STAT 12/23/2024 2:35 PM EDT TROPONIN STAT 12/23/2024 2:35 PM EDT FREE T4 Routine 12/23/2024 2:35 PM EDT PHOSPHORUS STAT 12/23/2024 2:35 PM EDT MAGNESIUM Routine 12/23/2024 2:35 PM EDT BASIC METABOLIC PANEL STAT 12/23/2024 2:35 PM EDT ECG 12-LEAD STAT 12/23/2024 1:31 PM EDT documented in this encounter Results * Troponin (12/23/2024 3:48 PM EDT) Troponin-T, HS Gen5 <6 0 - 9 ng/L [facility] Blood 12/23/2024 3:48 PM EDT 12/23/2024 4:10 PM EDT us Ellen Garcia PA-C LAB BLOOD ORDERABLES Final Result [facility] [address] [place] [address] * Free T4 (12/23/2024 2:35 PM EDT) FREE T4 1.2 0.9 - 1.7 ng/dL [facility] 12/23/2024 2:35 PM EDT 12/23/2024 2:42 PM EDT Ellen Garcia PA-C LAB BLOOD ORDERABLES Final Result [address] [address] * (ABNORMAL) TSH with reflex (12/23/2024 2:35 PM EDT) TSH 7.45(H) 0.27 - 4.20 uIU/mL [facility] 12/23/2024 2:35 PM EDT 12/23/2024 2:42 PM EDT Ellen aGrcia PA-C LAB BLOOD ORDERABLES Final Result Performing Organization Address [facility]/ZIP Co de Phone Number [address] [address] * Magnesium (12/23/2024 2:35 PM EDT) MAGNESIUM 1.9 1.6 - 2.6 mg/dL [facility] 12/23/2024 2:35 PM EDT 12/23/2024 2:42 PM EDT Ellen Garcia PA-C LAB BLOOD ORDERABLES Final Result Performing Organization Address [facility]/ZIP Co de Phone Number [address] [address] * (ABNORMAL) Phosphorus (12/23/2024 2:35 PM EDT) PHOSPHORUS 2.2(L) 2.7 - 4.5 mg/dL [facility] Blood 12/23/2024 2:35 PM EDT 12/23/2024 2:42 PM EDT Ellen Garcia PA-C LAB BLOOD ORDERABLES Final Result Performing Organization Address City/[facility]/ZIP Co de Phone Number [address] [address] * Troponin (12/23/2024 2:35 PM EDT) Troponin-T, HS Gen5 <6 0 - 9 ng/L [facility] Blood 12/23/2024 2:35 PM EDT 12/23/2024 2:42 PM EDT Ellen Garcia PA-C LAB BLOOD ORDERABLES Final Result Performing Organization Address [facility] Co de Phone Number [address] [address] * (ABNORMAL) Basic metabolic panel (12/23/2024 2:35 PM EDT) SODIUM 136 133 - 146 mmol/L [facility] CHLORIDE 99 96 - 108 mmol/L [facility] POTASSIUM 3.3 3.3 - 5.1 mmol/L [facility] CO2 26 21 - 35 mmol/L [facility] BUN 11 6 - 19 mg/dL [facility] CREATININE 0.60 0.5 - 1.5 mg/dL [facility] GLUCOSE 116(H) 70 - 99 mg/dL [facility] CALCIUM 9.4 8.4 - 10.3 mg/dL [facility] EGFR 106 >59 mL/min/1.7 3m2 [facility] Comment:Estimated glomerular filtration rate calculated using the CKD-EPI refit equation. ANION GAP 14 10 - 20 mmol/L [facility] Blood 12/23/2024 2:35 PM EDT 12/23/2024 2:42 PM EDT Ellen Garcia PA-C LAB BLOOD ORDERABLES Final Result [facility] [address] [place] [address] * CBC and differential (12/23/2024 2:35 PM EDT) WBC 5.11 4.00 - 11.00 K/uL [facility] RBC 4.48 4.00 - 5.20 M/uL [facility] HGB 13.3 12.0 - 16.0 g/dL [facility] HCT 39.4 36.0 - 46.0 % [facility] PLT 256 150 - 450 K/uL [facility] MCV 87.9 80.0 - 100.0 fL [facility] MCH 29.7 27.0 - 31.0 pg [facility] MCHC 33.8 32.0 - 36.0 g/dL [facility] RDW 12.7 11.5 - 14.5 % [facility] MPV 9.3 8.4 - 12.0 fL [facility] NRBC 0.00 0.00 /100 WBCs [facility] ABSOLUTE NRBC 0.00 0.00 K/uL [facility] DIFF METHOD Auto [facility] NEUTS 56.7 48.0 - 76.0 % [facility] LYMPHS 35.0 18.0 - 41.0 % [facility] MONOS 6.1 4.0 - 11.0 % [facility] EOS 1.4 0.0 - 5.0 % [facility] BASOS 0.6 0.0 - 1.5 % [facility] Granulocytes, immature (%) 0.2 0.0 - 0.9 % [facility] ABSOLUTE NEUTS 2.90 1.92 - 7.60 K/uL [facility] ABSOLUTE LYMPHS 1.79 0.72 - 4.10 K/uL [facility] ABSOLUTE MONOS 0.31 0.16 - 1.10 K/uL [facility] ABSOLUTE EOS 0.07 0.00 - 0.50 K/uL [facility] ABSOLUTE BASOS 0.03 0.00 - 0.15 K/uL [facility] Granulocytes, immature 0.01 0.00 - 0.09 K/uL [facility] Blood 12/23/2024 2:35 PM EDT 12/23/2024 2:42 PM EDT us Ellen Garcia PA-C LAB BLOOD ORDERABLES Final Result [address] [address] * ECG 12-LEAD (12/23/2024 1:31 PM EDT) Ventricular Rate EKG/MIN 90 BPM [facility] Atrial Rate 90 BPM [facility] SC Interval 164 ms [facility] QRS Duration 122 ms [facility] QT Interval 392 ms [facility] QTC Interval 479 ms [facility] P [place] 64 degrees [facility] R Wave [place] 80 degrees [facility] T Wave [place] 44 degrees [facility] 12/23/2024 1:31 PM EDT 12/23/2024 2:43 PM EDT Narrative [facility] - 12/23/2024 2:43 PM EDT Sinus rhythm with occasional Premature ventricular complexes Right bundle branch block Abnormal ECG When compared with ECG of 17-Jul-2024 14:42, Premature ventricular complexes are now Present Confirmed by Magdy Garcia ([id number]) on 12/23/2024 2:43:43 PM Tashi Quintanilla MD ECG ORDERABLES F inal Result Performing Organization Address [facility]/ZIP Co de Phone Number [facility] documented in this encounter Visit Diagnoses Diagnosis Palpitations- Primary Hypophosphatemia Disorders of phosphorus metabolism Subclinical hypothyroidism Other specified acquired hypothyroidism documented in this encounter Administered Medications Inactive Administered Medications - up to 3 most recent administrations Medication Order MAR Action Action Date Dose Rate Site potassium phosphate (monobasic) (K-PHOS) tablet 500 mg 500 mg, Oral, 2 times daily, First dose on Sun12/23/24 at 1815, Dose is expressed in potassium phosphate salt. Each 500 mg of potassium phosphate = elemental potassium 144 mg = elemental phosphorus 114 mg. Dissolve tablets in 6-8 oz of water; for best results, soak tablets in water for 2-5 minutes, then stir and give to patient. Given 12/23/2024 6:09 PM EDT 500 mg sodium chloride (NS) 0.9 % syringe flush 3 mL 3 mL, Intravenous, As needed, line care, Starting on Sun12/23/24 at 1403, Per Institutional IV Line Care Policy. documented in this encounter Active and Recently Administered Medications Times are shown in EDT. Scheduled Medication Order 12/21/2024 12/22/2024 12/23/2024 potassium phosphate (monobasic) (K-PHOS) tablet 500 mg 500 mg, Oral, 2 times daily, First dose on Sun12/23/24 at 1815, Dose is expressed in potassium phosphate salt. Each 500 mg of potassium phosphate = elemental potassium 144 mg = elemental phosphorus 114 mg. Dissolve tablets in 6-8 oz of water; for best results, soak tablets in water for 2-5 minutes, then stir and give to patient. 180 (Given - Provid er: Anni Fraga RN) PRN Medication Order 12/21/2024 12/22/2024 12/23/2024 sodium chloride (NS) 0.9 % syringe flush 3 mL 3 mL, Intravenous, As needed, line care, Starting on Sun12/23/24 at 1403, Per Institutional IV Line Care Policy. documented in this encounter Care Teams Story Editor Relationship Specialty Start Date End Date Leonardo Perez PA [address] [place] [address] PCP - General 05/08/22 Nichole Cabezas CNP [address] [facility], [address] [place] [address] [email or web address] Historical LMR Provider 02/12/17 Self-Referred, Patient 05/08/22 documented as of this encounter Additional Source Comments The information contained in this document represents components of the legal health record. It is not the complete legal health record.[facility]
--- OUTSIDE RECORDS SUMMARY | 2024-12-26 10:17 | XMS_ITS | Encounter Summary ---
Author Organization [facility] Address [address] [place] [address] [place] [address] Phone Care Team Providers Care Technical Editor Name Role Phone Santiago Prince MD Unavailable Raulito Nicholethierry Lovelace SHOE LACER Unavailable [phone] Mohit Sierra MD Unavailable [phone] Pcp, Unknown Primary Care Provider Unavailabl e Pcp, Unknown Primary Care Provider Unavailabl e Leonardo Perez Primary Care Provider + Self-Referred, Patient Unavailable Unavailab le Encounter Details Date Type Department Care Team (Late Contact Info) Description 05/23/2018 Procedure Pass [facility] Endoscopy Admitting Dept Virtual Department [address] [place], [place] [id number] Social History Tobacco Use Types Packs/Day Years Used Date Smoking Tobacco: Every Day Cigarettes Smokeless Tobacco: Never Alcohol Use Standard Drinks/Week Comments No 0 (1 standard drink = 0.6 oz pur e alcohol) Comments Unknown Sex and Gender Information Value Date Recorded Sex Assigned at Female 02/06/2018 12:12 PM EDT Legal Sex Female 9:36 PM EDT Gender Identity Female 02/06/2018 12:12 PM EDT Sexual Orientation Straight 08/02/2020 7: 11 AM EDT documented as of this encounter Plan of Treatment Upcoming Encounters Date Type Department Care Team (Late Contact Info) Description 03/23/2025 10:00 AM EST Office Visit [facility] [address] [place] [address] 3rd Floor, [address] [place] [address] Farhat Caro DO 22 [facility] [address] [place] [address] [email or web address] documented as of this encounter Visit Diagnoses Not on filedocumented in this encounter Care Teams Technical Editor Relationship Specialty Start Date End Date Pcp, Unknown PCP - General 05/20/19 08/01/20 Pcp, Unknown PCP - General 08/02/20 05/07/22 Leonardo Perez PA [address] [place] [address] PCP - General 05/08/22 Santiago Prince MD 22 [facility], [address] [place] [address] [email or web address] Historical LMR Provider 02/12/17 05/07/21 Nichole Cabezas CNP 15 [facility], 2nd [place] [address] [email or web address] Historical LMR Provider 02/12/17 Mohit Sierra MD [address] [address] [email or web address] Historical LMR Provider 02/12/17 05/07/21 Self-Referred, Patient 05/08/22 documented as of this encounter Additional Source Comments The information contained in this document represents components of the legal health record. It is not the complete legal health record.[facility]
--- OUTSIDE RECORDS SUMMARY | 2024-12-26 10:17 | XMS_ITS | Encounter Summary ---
Author Organization [facility] Address [address] [place] [address] Phone Care Team Providers Care Assistant Chief Of Police Name Role Phone Santiago Prince MD Unavailable Nichole Cabezas CURB HOP Unavailable [phone] Mohit Sierra MD Unavailable [phone] Pcp, Unknown Primary Care Provider Unavailabl e Pcp, Unknown Primary Care Provider Unavailabl e Leonardo Perez Primary Care Provider + Self-Referred, Patient Unavailable Unavailab le Encounter Details Date Type Department Care Team (Late Contact Info) Description 04/29/2018 Ancillary Orders [facility]Outside Imaging [address] [place], [place] [id number] System, Provider Not In, [facility] [address] [address] Social History Tobacco Use Types Packs/Day Years Used Date Smoking Tobacco: Every Day Smokeless Tobacco: Never Comments:3 cig/day Alcohol Use Standard Drinks/Week Comments No 0 [...] Description 03/23/2025 10:00 AM EST Office Visit [facility] 22 [facility] 3rd Floor, [address] [place] [address] Farhat Caro DO 22 [facility] [address] [place] [address] [email or web address] documented as of this encounter Results * Mammogram Outside (No Interpretation) (03/10/2013 12:00 AM EST) Narrative SYSTEMGENERATED, DOCUMENTATION - 04/29/2018 8:23 AM EST This study is for PACS storage only and not for interpretation. us Provider Not In System PhD IMG OUTSIDE IMAGING W /OUT INTERPRETATION Final Result documented in this encounter Visit Diagnoses Not on filedocumented in this encounter Care Teams Assistant Chief Of Police Relationship Specialty Start Date End Date Pcp, Unknown PCP - General 05/20/19 08/01/20 Pcp, Unknown PCP - General 08/02/20 05/07/22 Leonardo Perez PA [address] [place] [address] PCP - General 05/08/22 Santiago Prince MD 22 [facility], [address] [place] [address] [email or web address] Historical LMR Provider 02/12/17 05/07/21 Nichole Cabezas CNP 15 [facility], 2nd [place] [address] Historical LMR Provider 02/12/17 Mohit Sierra MD [address] [address] [email or web address] Historical LMR Provider 02/12/17 05/07/21 Self-Referred, Patient 1/9/23 documented as of this encounter Additional Source Comments The information contained in this document represents components of the legal health record. It is not the complete legal health record.[facility]
--- OUTSIDE RECORDS SUMMARY | 2024-12-26 10:17 | XMS_ITS | Encounter Summary ---
Author Organization [facility] Address [address] [place] [address] Phone Care Team Providers Care Location Analyst Name Role Phone Santiago Prince MD Unavailable Raulito Nicholethierry Lovelace LICENSE DISTRIBUTOR Unavailable [phone] Mohit Sierra MD Unavailable [phone] Pcp, Unknown Primary Care Provider Unavailabl e Pcp, Unknown Primary Care Provider Unavailabl e Leonardo Perez Primary Care Provider + Self-Referred, Patient Unavailable Unavailab le Encounter Details Date Type Department Care Team (Latest Contact Info) Description 03/30/2017 Ancillary [facility] [address] [place] [address] Mohit Sierra MD [address] [place] [address] [place] [address] [email or web address] Syncope, unspecified syncope type Social History Tobacco Use Types Packs/Day Years Used Date Smoking Tobacco: Every Day Smokeless Tobacco: Never Alcohol Use Standard Drinks/Week [...] Description 03/23/2025 10:00 AM EST Office Visit [facility] 22 [facility] 3rd Floor, [address] [place] [address] Farhat Caro DO [address] [facility] [address] [place] [address] [email or web address] documented as of this encounter Results * TTE COMPREHENSIVE (04/13/2017 2:03 PM EST) Anatomical Region Laterality Modality Heart Ultrasound us Mohit Sierra MD CV ECHO ORDERABLES Final Result documented in this encounter Visit Diagnoses Diagnosis Syncope, unspecified syncope type documented in this encounter Care Teams Location Analyst Relationship Specialty Start Date End Date Pcp, Unknown PCP - General 05/20/19 08/01/20 Pcp, Unknown PCP - General 08/02/20 05/07/22 Leonardo Perez PA [address] [place] [address] PCP - General 05/08/22 Santiago Prince MD [address] [facility], [address] [place] [address] [email or web address] Historical LMR Provider 02/12/17 05/07/21 Nichole Cabezas CNP [address] [facility], 2nd [place] [address] Historical LMR Provider 02/12/17 Mohit Sierra MD [address] [address] Historical LMR Provider 02/12/17 05/07/21 Self-Referred, Patient 05/08/22 documented as of this encounter Additional Source Comments The information contained in this document represents components of the legal health record. It is not the complete legal health record.[facility]
--- OUTSIDE RECORDS SUMMARY | 2024-12-26 10:18 | XMS_ITS | Encounter Summary ---
Author Organization [facility] Address [address] [place] [address] [place] [address] Phone Care Team Providers Care Greenhouse Florist Name Role Phone Santiago Prince MD Unavailable Nichole Cabezas LOCOMOTIVE INSPECTOR Unavailable [phone] Mohit Sierra MD Unavailable [phone] Pcp, Unknown Primary Care Provider Unavailabl e Pcp, Unknown Primary Care Provider Unavailabl e Leonardo Perez Primary Care Provider + Self-Referred, Patient Unavailable Unavailab le Encounter Details Date Type Department Care Team (Latest Contact Info) Description 03/01/2017 Transcribe Orders [facility] [address] [place] [address] Nichole Cabezas, LOCOMOTIVE INSPECTOR 15 [facility], 2nd [place] [address] [email or web address] Chronic lymphocytic thyroiditis (Primary Dx) Social History Tobacco Use Types Packs/Day Years Used Date Smoking Tobacco: Every Day Alcohol Use Standard Drinks/Week Comments No 0 [...] Description 03/23/2025 10:00 AM EST Office Visit [facility] 22 [facility] 3rd Floor, [address] [place] [address] Farhat Caro DO 22 [facility] [address] [place] [address] [email or web address] documented as of this encounter Procedures Procedure Name Priority Date/Time Associated Diagnosis Comments COMPREHENSIVE METABOLIC PANEL Routine 03/01/2017 12:50 PM EDT Chronic lymphocytic thyroiditis TSH Routine 03/01/2017 12:50 PM EDT Chronic lymphocytic thyroiditis documented in this encounter Results * (ABNORMAL) TSH (03/01/2017 12:50 PM EDT) TSH 0.02(L) 0.27 - 4.20 uIU/mL [facility] Blood 03/01/2017 12:5 0 PM EDT 03/01/2017 12:54 PM EDT Nichole Cabezas [facility] LAB BLOOD ORDERABLES Final Result [facility] [address] [place] [address] * (ABNORMAL) Comprehensive metabolic panel (03/01/2017 12:50 PM EDT) SODIUM 133 133 - 146 mmol/L [facility] POTASSIUM 3.2(L) 3.3 - 5.1 mmol/L [facility] CHLORIDE 93(L) 96 - 108 mmol/L [facility] CO2 26 21 - 35 mmol/L [facility] BUN 12 6 - 19 mg/dL [facility] CREATININE 0.60 0.5 - 1.5 mg/dL [facility] GLUCOSE 126(H) 70 - 99 mg/dL [facility] ALBUMIN 4.1 3.9 - 4.8 g/dL [facility] TOTAL PROTEIN 7.5 6.5 - 8.0 g/dL [facility] CALCIUM 9.7 8.4 - 10.3 mg/dL [facility] ALKALINE PHOSPHATASE 68 39 - 117 U/L [facility] TOTAL BILIRUBIN 0.5 0 - 1.2 mg/dL [facility] AST 14 0 - 37 U/L [facility] ALT 16 0 - 40 U/L [facility] GLOBULIN 3.4 1 - 4.8 g/dL [facility] EGFR >60 60 - 1000 mL/min/1.7 3m2 [facility] Comment:Abnormal if <60. If patient is -Yemeni, multiply the result by 1.21. ANION GAP 17 10 - 20 mmol/L [facility] Blood 03/01/2017 12:5 0 PM EDT 03/01/2017 12:54 PM EDT us Nichole Cabezas CNP LAB BLOOD ORDERABLES Final Result Performing Organization Address City/State/[facility] Co de Phone Number [facility] [address] [place] [address] documented in this encounter Visit Diagnoses Diagnosis Chronic lymphocytic thyroiditis- Primary documented in this encounter Care Teams Greenhouse Florist Relationship Specialty Start Date End Date Pcp, Unknown PCP - General 05/20/19 08/01/20 Pcp, Unknown PCP - General 08/02/20 05/07/22 Leonardo Perez PA [facility] [place] [address] PCP - General 05/08/22 Santiago Prince MD 22 [facility], [address] [place] [address] Historical LMR Provider 02/12/17 05/07/21 Nichole Cabezas CNP 15 [facility], 2nd [place] [address] Historical LMR Provider 02/12/17 Mohit Sierra MD [address] [address] [email or web address] Historical LMR Provider 02/12/17 05/07/21 Self-Referred, Patient 05/08/22 documented as of this encounter Additional Source Comments The information contained in this document represents components of the legal health record. It is not the complete legal health record.[facility]
--- OUTSIDE RECORDS SUMMARY | 2024-12-26 10:18 | XMS_ITS | Encounter Summary ---
Author Organization [facility] Address [address] [place] [address] Phone Care Team Providers Care Supervisor Graphite Name Role Phone Nichole Cabezas UNEMPLOYMENT INSPECTOR Unavailable [phone] Leonardo Perez Primary Care Provider + Self-Referred, Patient Unavailable Unavailab le Reason for Visit * Reason Onset Date Comments Lab review/follow-up plan 11/24/2024 Encounter Details Date Type Department Care Team (Late st Contact Info) Description 11/24/2024 Telephone [facility] [address] [place] [address] [place] [address] Narcisa Cohn MD [address] [place] [address] [email or web address] Lab review/follow-up plan Social History Tobacco Use Types Packs/Day Years Used Date Smoking Tobacco: Former Cigarettes Q uit: 2021 Smokeless Tobacco: Never Alcohol Use Standard Drinks/Week Comments No 0 (1 standard drink = 0.6 oz pur e alcohol) Education Answer Date Recorded Are you interested in more education? Not on jono e 08/25/2022 Are you concerned about learning? Not on file 08/25/2022 No 08/25/2022 No 08/25/2022 Digital Access Answer Date Recorded No 09/25/2022 No 09/25/2022 Reliable internet access at home? Not on file 09/25/2022 Device with a working camera? Not on file Intimate Partner Violence Answer Date R ecorded Are you denied basic needs s uch as food, clothing, or medical care? No 07/17/2024 In the past 12 months have y ou been in a relationship with a person who hurts, threatens, or tries to control you? No 07/17/2024 Are you denied basic needs s uch as food, clothing, or medical care? No 07/17/2024 In the past 12 months have y ou been in a relationship with a person who hurts, threatens, or tries to control you? No 07/17/2024 Comments No Sex and Gender Information Value Date Recorded Sex Assigned at Female 02/06/2018 12:12 PM EDT Legal Sex Female 9:36 PM EDT Gender Identity Female 02/06/2018 12:12 PM EDT Sexual Orientation Straight 08/02/2020 7: 11 AM EDT documented as of this encounter Progress Notes * Teena Morrison LPN - 11/24/2024 10:37 AM EDT Patient has been notified * Narcisa Cohn MD - 11/24/2024 9:56 AM EDT Please tell patient that her blood work was good. Continue current levothyroxine 75 mcg daily. Continue the 1000 IU D3 daily. I sent refills. 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 Expected: 06/01/2025 (Approximate), Expires: 11/24/2025 Renal panel Lab Routine History of hyperparathyroidism Hypophosphatemia Expected: 06/01/2025 (Approximate), Expires: 11/24/2025 Parathyroid hormone (PTH) Lab Routine History of hyperparathyroidism Hypophosphatemia Expected: 06/01/2025 (Approximate), Expires: 11/24/2025 25-OH vitamin D Lab Routine Hyperparathyroidism, unspecified Expected: 06/01/2025 (Approximate), Expires: 11/24/2025 documented as of this encounter Visit Diagnoses Diagnosis 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 Vitamin D deficiency, unspecified History of hyperparathyroidism Hypophosphatemia Disorders of phosphorus metabolism Hyperparathyroidism, unspecified documented in this encounter Care Teams Supervisor Graphite Relationship Specialty Start Date End Date Leonardo Perez PA [address] [place] [address] PCP - General 05/08/22 Nichole Cabezas CNP 15 [facility], [address] [place] [address] [email or web address] Historical LMR Provider 02/12/17 Self-Referred, Patient 05/08/22 documented as of this encounter Additional Source Comments The information contained in this document represents components of the legal health record. It is not the complete legal health record.[facility]
--- OUTSIDE RECORDS SUMMARY | 2024-12-26 10:18 | XMS_ITS | Encounter Summary ---
Author Organization [facility] Address [address] [place] [address] Phone Care Team Providers Care Media Producer Name Role Phone Santiago Prince MD Unavailable RaulitoNicholez MEDICAL ANTHROPOLOGY DIRECTOR Unavailable [phone] Mohit Sierra MD Unavailable [phone] Unknown, Unknown Primary Care Provider Unarosangela randhawa Pcp, Unknown Primary Care Provider Unavailabl e Pcp, Unknown Primary Care Provider Unavailabl e Leonardo Perez Primary Care Provider + Self-Referred, Patient Unavailable Unavailab le Encounter Details Date Type Department Care Team (Latest Contact Info) Description 02/17/2017 Ancillary Orders [facility] [address] [place] [address] Mohit Sierra MD [address] [place] [address] [place] [address] [email or web address] Diagnosis unknown Social History Tobacco Use Types Packs/Day Years Used Date Smoking Tobacco: Never Assessed Comments Unknown Sex and Gender Information Value [...] Description 03/23/2025 10:00 AM EST Office Visit [facility] 22 [facility] 3rd Floor, [address] [place] [address] Farhat Caro DO 22 [facility] [address] [place] [address] [email or web address] documented as of this encounter Visit Diagnoses Diagnosis Diagnosis unknown documented in this encounter Care Teams Media Producer Relationship Specialty Start Date End Date Unknown, Unknown, MD [address] [address] PCP - General 02/17/17 02/28/17 Pcp, Unknown PCP - General 05/20/19 08/01/20 Pcp, Unknown PCP - General 08/02/20 05/07/22 Leonardo Perez PA [address] [place] [address] PCP - General 05/08/22 Santiago Prince MD 22 [facility], [address] [place] [address] [email or web address] Historical LMR Provider 02/12/17 05/07/21 Nichole Cabezas CNP 15 [facility], 2nd [place] [address] Historical LMR Provider 02/12/17 Mohit Sierra MD [address] [address] [email or web address] Historical LMR Provider 02/12/17 05/07/21 Self-Referred, Patient 05/08/22 documented as of this encounter Additional Source Comments The information contained in this document represents components of the legal health record. It is not the complete legal health record.[facility]
--- OUTSIDE RECORDS SUMMARY | 2024-12-26 10:18 | XMS_ITS | Encounter Summary ---
Author Organization [facility] Address [address] [place] [address] Phone Care Team Providers Care Anthropology Instructor Name Role Phone Santiago Prince MD Unavailable RaulitoNicholez SCIENTIFIC RESEARCH MANAGER Unavailable [phone] Mohit Sierra MD Unavailable [phone] Unknown, Unknown Primary Care Provider Unarosangela randhawa Pcp, Unknown Primary Care Provider Unavailabl e Pcp, Unknown Primary Care Provider Unavailabl e Leonardo Perez Primary Care Provider + Self-Referred, Patient Unavailable Unavailab le Encounter Details Date Type Department Care Team (Latest Contact Info) Description 02/17/2017 Ancillary Orders [facility] [address] [place] [address] Mohit Sierra MD [address] [place] [address] [place] [address] [email or web address] Diagnosis unknown Social History Tobacco Use Types [...] Description 03/23/2025 10:00 AM EST Office Visit [facility] 22 [facility] 3rd Floor, [address] [place] [address] Farhat Caro DO 22 [facility] [address] [place] [address] [email or web address] documented as of this encounter Results * Holter Monitor 24 Hours (04/02/2017 9:04 AM EST) Anatomical Region Laterality Modality Heart Other Narrative 04/17/2017 1:03 PM EST 24-hour monitor: Patient experienced symptoms of dizziness, nausea, shortness of breath, and chest discomfort. Baseline rhythm is sinus with a minimum heart rate of 51 maximum 143 average 79 bpm. Rare PACs occurred. Symptoms occurred during sinus rhythm. Impression: Normal 24-hour monitor. Symptoms during sinus rhythm. Mohit Sierra MD CV CARDIAC SERVICES ORDERABLES Final Result documented in this encounter Visit Diagnoses Diagnosis Diagnosis unknown Diagnosis unknown documented in this encounter Care Teams Anthropology Instructor Relationship Specialty Start Date End Date Unknown, Unknown, [address] [address] PCP - General 02/17/17 02/28/17 Pcp, Unknown PCP - General 05/20/19 08/01/20 Pcp, Unknown PCP - General 08/02/20 05/07/22 Leonardo Perez PA [address] [place] [address] PCP - General 05/08/22 Santiago Prince MD 22 [facility], [address] [place] [address] [email or web address] Historical LMR Provider 02/12/17 05/07/21 Nichole Cabezas, TRIN[employer] 15 [facility], 2nd [place] [address] [email or web address] Historical LMR Provider 02/12/17 Mohit Sierra MD [address] [address] [email or web address] Historical LMR Provider 02/12/17 05/07/21 Self-Referred, Patient 05/08/22 documented as of this encounter Additional Source Comments The information contained in this document represents components of the legal health record. It is not the complete legal health record.[facility]
--- OUTSIDE RECORDS SUMMARY | 2024-12-26 10:18 | XMS_ITS | Encounter Summary ---
Author Organization [facility] Address [address] [place] [id number] Phone Care Team Providers Care Project Architect Name Role Phone Santiago Prince MD Unavailable RaulitoNicholez HEAD STOCK TRANSFER CLERK Unavailable [phone] Mohit Sierra MD Unavailable [phone] Unknown, Unknown Primary Care Provider Unarosangela randhawa Pcp, Unknown Primary Care Provider Unavailabl e Pcp, Unknown Primary Care Provider Unavailabl e Leonardo Perez Primary Care Provider + Self-Referred, Patient Unavailable Unavailab le Encounter Details Date Type Department Care Team (Latest Contact Info) Description 02/17/2017 Ancillary Orders [facility] [address] [place] [address] Mohit Sierra MD [address] [address] [place] [id number] [email or web address] Diagnosis unknown Social History Tobacco Use Types [...] Description 03/23/2025 10:00 AM EST Office Visit [facility] [address] [facility] [address], [address] [place] [address] Farhat Caro DO [address] [facility] [address] [place] [address] [email or web address] documented as of this encounter Visit Diagnoses Diagnosis Diagnosis unknown documented in this encounter Care Teams Project Architect Relationship Specialty Start Date End Date Unknown, Unknown, MD [address] [address] PCP - General 02/17/17 02/28/17 Pcp, Unknown PCP - General 05/20/19 08/01/20 Pcp, Unknown PCP - General 08/02/20 05/07/22 Leonardo Perez PA [address] [place] [address] PCP - General 05/08/22 Santiago Prince MD [address] [facility], [address] [place] [address] [email or web address] Historical LMR Provider 02/12/17 05/07/21 Nichole Cabezas CNP [address] [facility]nd [place] [address] Historical LMR Provider 02/12/17 Mohit Sierra MD [address] [address] [email or web address] Historical LMR Provider 02/12/17 05/07/21 Self-Referred, Patient 05/08/22 documented as of this encounter Additional Source Comments The information contained in this document represents components of the legal health record. It is not the complete legal health record.[facility]
--- OUTSIDE RECORDS SUMMARY | 2024-12-26 10:18 | XMS_ITS | Clinical Summary ---
Author Organization [facility] Address [address] [place] [phone] Phone Care Team Providers [facility] Name Role Phone Nichole Cabezas CHAINSTITCH ZIPPER SETTER Unavailable [phone] Leonardo Perez Primary Care Provider + Self-Referred, Patient Unavailable Unavailab le Allergies Active Allergy Reactions Criticality Noted Date Comments Amoxicillin-Pot Clavulanate 03/01/20 17 Banana Anaphylaxis High 02/21/2017 Ketorolac Rash Low 02/21/2017 Kiwi (Actinidia Chinensis) Anaphylaxis High 03/01/20 17 Oxybutynin Other (See Comments),Palpitations,Sw elling Low 05/19/2023 Prochlorperazine 03/01/2017 Medications lisinopril (PRINIVIL,ZESTRI L) 20 MG tablet Take 10 mg by mouth daily. Active acetaminophen-co deine (TYLENOL #3) 300-30 mg per tablet Take 1 tablet by mouth every 8 (eight) hours as needed. Active cholecalciferol (VITAMIN D3) 25 MCG (1,000 unit) tablet Take 1 tablet (1,000 Units total) by mouth daily. 90 tablet 2 11/24/2024 Active levothyroxine (SYNTHROID, LEVOTHROID) 75 MCG tablet Take 1 tablet (75 mcg total) by mouth every morning. 90 tablet 2 11/24/2024 Active potassium phosphate, monobasic, (K-PHOS) 500 mg (144 mg elemental potassium) tablet Take 1 tablet (500 mg total) by mouth 2 (two) times a day for 3 days. 6 tablet 12/23/2024 5 Active Active Problems Problem Noted Date Diagnosed Date Shoulder joint hypermobility 11/05/2024 Overview (11/05/2024): Recurrent bilateral shoulder dislocations onset in childhood; diagnosed with hypermobility at age 6 MRI right shoulder ([place]) consistent with labral tear per patient report Assessment & Plan (11/05/2024 12:39 PM EDT): Beighton score today is 0/9, though certainly her history is consistent with hypermobility syndrome. There is no rheumatology-specific intervention available for this noninflammatory genetic condition. Patient is aware of importance of body mechanics to mitigate pain and decrease risk of recurrent dislocations. Postmenopausal 11/05/2024 Overview (11/05/2024): Menopause at 39 years of age; osteopenia per chart though patient denies DEXA history Assessment & Plan (11/05/2024 12:38 PM EDT): She will call to schedule baseline DEXA Vitamin D deficiency, unspecified 07/29/2023 Assessment & Plan (07/09/2024 1:44 PM EDT): She has been off of her 5000 IU D3 for several months now. Recent vitamin D level is not available. -Restart 1000 IU D3 daily, Rx sent. -Recheck the level with next labs in 2 to 3 months Assessment & Plan (08/03/2023 2:21 PM EDT): Patient has been taking 5000 IU D3 daily. Vitamin D level has been normal, last tested on 05/19/2023 and was 52. Considering the rather high-dose vitamin D supplement and history of kidney stone, will recheck level. Hyperparathyroidism, unspecified 07/29/2023 Assessment & Plan (11/05/2024 12:38 PM EDT): Previously evaluated by established human resource analyst Dr. K. However, she has had subsequent episodes of low phosphorus to 1.8, symptomatic and requiring IV phosphorus repletion. I have advised her to revisit the question of hyperparathyroidism with her human resource analyst. Assessment & Plan (08/03/2023 2:26 PM EDT): Patient had a low phosphorus level 1.8 when evaluated in the emergency room at the end of March with chest pain. Normocalcemic hyperparathyroidism noted in 04/2023 and 05/2023 with PTH between 94.5 -73.3 and corresponding calcium of 9.8-9.5, phosphorus 3.5-2.9. I do not have a creatinine level with these labs. Vitamin D level was normal. Patient was diagnosed with an incidental kidney stone few months ago on a CT abdomen done because of fecal impaction. She is asymptomatic. We discussed basic parathyroid physiology, the difference between primary and secondary hyperparathyroidism and surgical indications for primary hyperparathyroidism. She denies any adult fracture. She had a lot of fractures as a child until age 13. She has not had a DEXA. Will recheck PTH with calcium and if PTH is elevated will do 24-hour urine studies and DEXA including the distal forearm. Chronic abdominal pain 01/09/2018 Overview (04/18/2018): Long hx of abdominal pain, bloating, nausea & vomiting. Dx chronic pancreatitis & GERD with PUD. CT scan 2016 showed thickening in sigmoid colon concerning for neoplasm but colonoscopy 05/26/2016 was negative except for 3 adenomatous polyps EGD 05/16 PUD Chronic obstructive pulmonary disease 01/08/2018 Weight loss 10/10/2017 Assessment & Plan (04/18/2018 7:26 PM EST): I again urged her to make appt w GI, Yet another referral was placed. She didn't follow up w the others. CT scans of abdomen were unrevealing, CXR was normal, she is UTD on pap. mammo was ordered. I expressed my concern about GI malignancy causing this wt loss. I offered to speak to her family members, she declined. Differential dx for cause of wt loss is chronic pancreatitis, esophagitis, drug use, eating disorder, HIV Assessment & Plan (10/10/2017 6:09 AM EDT): Sx concerning for peptic ulcers. Referred to GI. Further labs ordered. Start omeprazole at 40 mg Left shoulder pain 10/09/2017 Right shoulder pain 10/09/2017 Left knee pain 06/27/2017 Stress due to illness of family member 7 Sacroiliitis, not elsewhere classified 7 Overview (06/20/2017): Sx started after a fall in early 2016. Xray showed DDD. Dx SI displacement by Dr. Raghav Dooley. 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 She will be seeing a specialist in the fall. Continue current pain medication regimen with [facility]. Controlled substance contract was reviewed with her today. Assessment & Plan (10/10/2017 6:11 AM EDT): Advised to hold NSAIDs because of GI sx. She was given rx for norco, no more than 2 tabs daily & can take addition tylenol if needed. Max dose of tylenol reviewed. FU w Dr Dooley Assessment & Plan (06/20/2017 7:04 PM EST): Recommend NSAID so she will start PPI for GI protection and then take naproxen. She doesn't want gabapentin or amitriptyline due to side effects. She stopped percocet voluntarily due to Gi side effects, and I don't want her on it anymore. Tramadol caused side effects too. She asked for tylenol w codeine which she used after dental surgery w/o n/v. Advised to use it sparingly. Reviewed possible side effects. Lidoderm patch also sent. Recommend continue PT & FU w physiatry, perhaps steroid shot would be helpful. Assessment & Plan (04/19/2017 6:24 PM EST): She is starting physical therapy tomorrow. She can continue the oxycodone up to 30 mg daily and we will start weaning after PT, she understands that I do not want her on this long-term. She is advised to take no more than 800 mg of ibuprofen 3 times a day. I will start her on gabapentin up to 300 mg at bedtime, she can add in daytime dose if she tolerates it well. Follow up 1 month Assessment & Plan (03/28/2017 6:36 PM EST): I refilled oxyodone for up to 30 mg daily. Use amitriptyline at bedtime. Continue NSAID. Start PT as soon as possible & FU w Dr. 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 She skipped 2 doses this week. -From next week on she will take 6 tablets/week. -Repeat labs in 2 to 3 months. 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 Difficulty finding the right levothyroxine dose within the last few years. TSH level varied between 0.06-9.05 within the last year while taking between 88 mcg-100 mcg LT4 daily. Last thyroid labs on 05/01/2023 with TSH up at 9.05, free T4 normal on 88 mcg LT4 daily. Patient denies being on biotin. No history of celiac disease or other GI problems. She is taking the medication appropriately. She had a thyroid ultrasound on 04/18/2023 at [facility] compared to previous ultrasound on 10/10/2019 reporting heterogeneous thyroid without nodules, the right lobe 2.1 mL, the left lobe 6.7 mL. We discussed basic thyroid physiology, meaning of TFTs, appropriate administration of levothyroxine. Plan to recheck full TFTs and adjust dose with a goal to keep TSH in the mid normal range. Assessment & Plan (04/18/2018 7:23 PM EST): Currently on 75mcg daily. Will go for TSH today Assessment & Plan (11/06/2017 11:28 AM EDT): TSH Date Value Ref Range Status 10/10/2017 0.28 0.27 - 4.20 uIU/mL Final We will decrease her levothyroxine by 75 g per week Assessment & Plan (06/20/2017 7:01 PM EST): She is aware to go to lab for recheck TSH 6 weeks after restarting levothyroxine. Essential hypertension 03/01/2017 Assessment & Plan (06/20/2017 7:01 PM EST): BP fine today after restarting meds Assessment & Plan (04/25/2017 11:57 AM EST): Well-controlled today. She may need to actually decrease her medications a bit as she is on occasion holding certain medications because she thinks her blood pressure is too low. I would at least consider reducing her lisinopril. Gastritis determined by endoscopy 03/01/2017 Overview (01/09/2018): EGD 09/2013 Duodenal ulcer & severe esophagitis EGD 07/2015 normal EGD 04/2016 q/o active peptic ulcer disease Assessment & Plan (11/06/2017 11:29 AM EDT): Continue PPI. We'll try to see if GI can get her in sooner. Smoking cessation encouraged. Assessment & Plan (10/10/2017 6:11 AM EDT): Restart omeprazole, referred to GI Hypertriglyceridemia 03/01/2017 History of cervical cancer 03/01/2017 Overview (04/18/2018): States this was dx while w her twins at age 20. She says she was treated with laser surgery Chronic biliary pancreatitis 03/01/2017 Other chronic pain 03/01/2017 Pain in joint of left shoulder 03/01/2017 Pain in joint of right shoulder 03/01/2017 Atypical squamous cells of u ndetermined significance on cytologic smear of cervix (ASC-US) 03/01/2017 Overview (05/20/2018): 12/2016 ASCUS + HR HPV (- 16,-18) 01/2017- negative colpo & ECC. Due for cotesting 01/2018 Assessment & Plan (11/06/2017 11:28 AM EDT): Negative colposcopy and ECC January 2018. Needs re-Pap January 2019 Syncope 03/01/2017 Overview (10/09/2017): Since she was a teenager. Much more frequent now. Per pt had Neg MRI brain & Spine 2001. Cardiac w/u now Assessment & Plan (04/25/2017 11:56 AM EST): Estiven ask one of our electrophysiologists to see her in order to get an opinion as to whether this could be autonomic deficiency leading to POTS syndrome. Chest pain 03/01/2017 Overview (10/09/2017): Unspecified type Tobacco abuse 03/01/2017 Assessment & Plan (10/10/2017 6:09 AM EDT): Urged to quit Cervical high risk human pap illomavirus (HPV) DNA test positive 03/01/2017 Resolved Problems Problem Noted Date Diagnosed Date Resolved Date Acquired hypothyroidism 03/01/201710/28 Autoimmune thyroiditis 03/01/201706/20 Encounters Date Type Department Care Team Description 12/23/2024 4:03 PM EDT - 12/23/2024 6:23 PM EDT Emergency [facility] [address] [place] [address] Tashi Quintanilla MD Birrenkott, Drew Alan, MD, DPHIL Discharge Disposition: Home or Self Care 12/23/2024 9:27 AM EDT - 12/23/2024 4:02 PM EDT Hospital Encounter [facility] [address] [place] [address] Cory Diamond MD, MPH Arrived Discharge Disposition: Home or Self Care 11/24/2024 Telephone [facility] [address] [place] [address] Narcisa Cohn MD Lab review/follow-up plan 11/18/2024 11:30 AM EDT - 11/18/2024 11:59 PM EDT Hospital Encounter [facility] [address] [place] [address] Narcisa Cohn MD Discharge Disposition: Home or Self Care 11/05/2024 11:10 AM EDT Office Visit [facility] [address] [place] [address] Cory Diamond MD, MPH Shoulder joint hypermobility (Primary Dx); Postmenopausal; Hyperparathyroidism, unspecified from Last 3 Months Family History Medical History Relation Comments Neha-Danlos syndrome Daughter 1 Other Daughter 1 superior mesente daniel atrophy. Dysautonomia Systemic mast cell disease Daughter 1 Other Daughter 2 dysautonomia Endometriosis Daughter 3 CV disease Father Hypertension Father Cancer Maternal Grandfather Diabetes mellitus Maternal Grandmother Cancer Maternal Uncle Alzheimer's disease Mother CV disease Mother Hypertension Mother Stroke Mother No Known Problems Son Relation Status Comments Daughter 1 Daughter 2 Alive Daughter 3 Father Maternal Grandfather Maternal Grandmother Maternal Uncle Mother Alive Son Social History Tobacco Use Types Packs/Day Years Used Date Smoking Tobacco: Former Cigarettes Q uit: 2021 Smokeless Tobacco: Never Tobacco Cessation:Counseling Given: Not Answered Alcohol Use Standard Drinks/Week Comments No 0 [...] 12:12 PM EDT Sexual Orientation Straight 08/02/2020 7 :11 AM EDT Last Filed Vital Signs Vital Sign Reading [...] Mass Index 22.8 12/23/2024 1:42 PM EDT Plan of Treatment Upcoming Encounters Date Type Department Care Team (Late st Contact Info) Description 03/23/2025 10:00 AM EST Office Visit [facility] [address] [facility] 3rd Floor, [address] [place], [place] [id number] Farhat Caro DO [address] [facility] [address] [place] [address] Health Maintenance Due Date Last Done Comments Adult Td,Tdap Booster 1969 DEPRESSION SCREENING 1981 SMOKING Hx and SMOKELESS TOBACCO SCREENING 1982 HEPATITIS C SCREENING 1987 HIV ONE-TIME SCREENING (18-65 YEARS) 1987 PNEUMOCOCCAL VACCINES (50+ years) (1 of 2 - PCV) 1988 COLOGUARD 2014 FIT TEST 2014 FOBT 2014 SIGMOIDOSCOPY 2014 VIRTUAL COLONOSCOPY 2014 MAMMOGRAM 03/10/2015 03/10/2013 PAP SMEAR 10/08/2017 01/30/2017 ZOSTER VACCINES (1 of 2) 2019 COLONOSCOPY 05/26/2019 05/26/2016 COLORECTAL CANCER SCREENING 05/26/2019 LIPID PANEL 11/07/2021 11/07/2016, 10/28, 11/07/2016 COVID-19 VACCINE ( season) 2023 04/15/2021, 10/02/2020, 09/11/2020 INFLUENZA VACCINE (#1) 2024 BLOOD PRESSURE 05/08/2025 11/05/2024 CREATININE LEVEL 12/23/2025 12/23/2024, , 07/17/2024, Additional history exists POTASSIUM LEVEL 12/23/2025 12/23/2024, 10/29, 07/17/2024, Additional history exists TSH LEVEL 12/23/2025 12/23/2024, 10/29, 07/17/2024, Additional history exists HEPATITIS A VACCINES Aged Out No long er eligible based on patient's age to complete this topic HIB VACCINES Aged Out No longer eligi ble based on patient's age to complete this topic MENINGOCOCCAL VACCINES (ACWY) Aged Out No longer eligible based on patient's age to complete this topic MENINGOCOCCAL VACCINES (B) Aged Out N o longer eligible based on patient's age to complete this topic Medical Devices Not on file Procedures Procedure Name Priority Date/Time Associated Diagnosis Comments TROPONIN STAT 12/23/2024 3:48 PM EDT FREE T4 Routine 12/23/2024 2:35 PM EDT TSH WITH REFLEX Routine 12/23/2024 2:35 PM EDT MAGNESIUM Routine 12/23/2024 2:35 PM EDT PHOSPHORUS STAT 12/23/2024 2:35 PM EDT TROPONIN STAT 12/23/2024 2:35 PM EDT BASIC METABOLIC PANEL STAT 12/23/2024 2:35 PM EDT CBC AND DIFFERENTIAL STAT 12/23/2024 2:35 PM EDT ECG 12-LEAD STAT 12/23/2024 1:31 PM EDT BD DXA AXIAL (SPINE) WITH HIP Routine 12/23/2024 9:40 AM EDT Postmenopausal Hyperparathyroidism , unspecified PARATHYROID HORMONE (PTH) Routine 11/18/2024 11:57 AM EDT Hyperparathyroidism , unspecified PHOSPHORUS Routine 11/18/2024 11:57 AM EDT Hyperparathyroidism , unspecified MAGNESIUM Routine 11/18/2024 11:57 AM EDT Hyperparathyroidism , unspecified 25-OH VITAMIN D Routine 11/18/2024 11:57 AM EDT Vitamin D deficiency, unspecified COMPREHENSIVE METABOLIC PANEL Routine 11/18/2024 11:57 AM EDT Vitamin D deficiency, unspecified TSH WITH REFLEX Routine 11/18/2024 11:57 AM EDT 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 Troponin-T, HS Gen5 <6 0 - 9 ng/L [facility] Blood 12/23/2024 3:48 PM EDT 12/23/2024 4:10 PM EDT us Ellen Garcia PA-C LAB BLOOD ORDERABLES Final Result [address] [address] * (ABNORMAL) TSH with reflex (12/23/2024 2:35 PM EDT) Only the most recent of2 resultswithin the time period is included. TSH 7.45(H) 0.27 - 4.20 uIU/mL [facility] 12/23/2024 2:35 PM EDT 12/23/2024 2:42 PM EDT us Ellen Garcia PA-C LAB BLOOD ORDERABLES Final Result [facility] [address] [place] [address] * CBC and differential (12/23/2024 2:35 PM EDT) WBC 5.11 4.00 - 11.00 K/uL [facility] RBC 4.48 4.00 - 5.20 M/uL [facility] HGB 13.3 12.0 - 16.0 g/dL [facility] HCT 39.4 36.0 - 46.0 % [facility] PLT 256 150 - 450 K/uL [facility] MCV 87.9 80.0 - 100.0 fL [facility] MCH 29.7 27.0 - 31.0 pg [facility] MCHC 33.8 32.0 - 36.0 g/dL [facility] RDW 12.7 11.5 - 14.5 % [facility] MPV 9.3 8.4 - 12.0 fL [facility] NRBC 0.00 0.00 /100 WBCs [facility] ABSOLUTE NRBC 0.00 0.00 K/uL [facility] DIFF METHOD Auto [facility] NEUTS 56.7 48.0 - 76.0 % [facility] LYMPHS 35.0 18.0 - 41.0 % [facility] MONOS 6.1 4.0 - 11.0 % [facility] EOS 1.4 0.0 - 5.0 % [facility] BASOS 0.6 0.0 - 1.5 % [facility] Granulocytes, immature (%) 0.2 0.0 - 0.9 % [facility] ABSOLUTE NEUTS 2.90 1.92 - 7.60 K/uL [facility] ABSOLUTE LYMPHS 1.79 0.72 - 4.10 K/uL [facility] ABSOLUTE MONOS 0.31 0.16 - 1.10 K/uL [facility] ABSOLUTE EOS 0.07 0.00 - 0.50 K/uL [facility] ABSOLUTE BASOS 0.03 0.00 - 0.15 K/uL [facility] Granulocytes, immature 0.01 0.00 - 0.09 K/uL [facility] Blood 12/23/2024 2:35 PM EDT 12/23/2024 2:42 PM EDT Ellen Garcia PA-C LAB BLOOD ORDERABLES Final Result Performing Organization Address City/[facility]/ZIP Co de Phone Number [address] [address] * Free T4 (12/23/2024 2:35 PM EDT) FREE T4 1.2 0.9 - 1.7 ng/dL [facility] 12/23/2024 2:35 PM EDT 12/23/2024 2:42 PM EDT Ellen Garcia PA-C LAB BLOOD ORDERABLES Final Result Performing Organization Address [facility] Co de Phone Number [address] [address] * (ABNORMAL) Phosphorus (12/23/2024 2:35 PM EDT) Only the most recent of2 resultswithin the time period is included. PHOSPHORUS 2.2(L) 2.7 - 4.5 mg/dL [facility] Blood 12/23/2024 2:35 PM EDT 12/23/2024 2:42 PM EDT Ellen Garcia PA-C LAB BLOOD ORDERABLES Final Result Performing Organization Address [facility] Co de Phone Number [address] [address] * Magnesium (12/23/2024 2:35 PM EDT) Only the most recent of2 resultswithin the time period is included. MAGNESIUM 1.9 1.6 - 2.6 mg/dL [facility] 12/23/2024 2:35 PM EDT 12/23/2024 2:42 PM EDT us Ellen Garcia PA-C LAB BLOOD ORDERABLES Final Result Performing Organization Address [facility]/ZIP Co de Phone Number [address] [address] * (ABNORMAL) Basic metabolic panel (12/23/2024 2:35 PM EDT) SODIUM 136 133 - 146 mmol/L [facility] CHLORIDE 99 96 - 108 mmol/L [facility] POTASSIUM 3.3 3.3 - 5.1 mmol/L [facility] CO2 26 21 - 35 mmol/L [facility] BUN 11 6 - 19 mg/dL [facility] CREATININE 0.60 0.5 - 1.5 mg/dL [facility] GLUCOSE 116(H) 70 - 99 mg/dL [facility] CALCIUM 9.4 8.4 - 10.3 mg/dL [facility] EGFR 106 >59 mL/min/1.7 3m2 [facility] Comment:Estimated glomerular filtration rate calculated using the CKD-EPI refit equation. ANION GAP 14 10 - 20 mmol/L [facility] Blood 12/23/2024 2:35 PM EDT 12/23/2024 2:42 PM EDT us Ellen Garcia PA-C LAB BLOOD ORDERABLES Final Result Performing Organization Address [facility] Co de Phone Number [address] [address] * ECG 12-LEAD (12/23/2024 1:31 PM EDT) Ventricular Rate EKG/MIN 90 BPM [facility] Atrial Rate 90 BPM [facility] MN Interval 164 ms [facility] QRS Duration 122 ms [facility] QT Interval 392 ms [facility] QTC Interval 479 ms [facility] P Se[place] 64 degrees [facility] R Wave [place] 80 degrees [facility] T Wave [place] 44 degrees [facility] 12/23/2024 1:31 PM EDT 12/23/2024 2:43 PM EDT Narrative [facility] - 12/23/2024 2:43 PM EDT Sinus rhythm with occasional Premature ventricular complexes Right bundle branch block Abnormal ECG When compared with ECG of 17-Jul-2024 14:42, Premature ventricular complexes are now Present Confirmed by Magdy Garcia ([id number]) on 12/23/2024 2:43:43 PM us Tashi Quintanilla MD ECG ORDERABLES F inal Result [facility] * BD DXA AXIAL (SPINE) WITH HIP (12/23/2024 9:40 AM EDT) Anatomical Region Laterality Modality Bone Density Bone Density 12/23/2024 9:39 AM EDT Impressions 12/24/2024 1:07 PM EDT Interpretation: Osteopenia. Narrative 12/24/2024 1:07 PM EDT Referred By: CORY DIAMOND Indications: Postmenopausal and Primary Hyperparathyroidism Scanner: Embotics A with serial# of [id number] located at [facility] Bone Density Scan (DXA) 12/23/24 Details of [...] -2.5), or Osteoporosis (T-score <= -2.5). At [facility], T-scores are compared to peak bone density [...] DIAMOND Indications: Postmenopausal and Primary Hyperparathyroidism Scanner: Embotics A with serial# of [id number] located at [facility] Bone Density Scan (DXA) 12/23/24 Details of [...] -2.5), or Osteoporosis (T-score <= -2.5). At [facility], T-scores are compared to peak bone density [...] IMG BD BONE DENSITY DEXA Final Result * Comprehensive metabolic panel (11/18/2024 11:57 AM EDT) SODIUM 135 133 - 146 mmol/L [facility] POTASSIUM 4.0 3.3 - 5.1 mmol/L [facility] CHLORIDE 100 96 - 108 mmol/L [facility] CO2 25 21 - 35 mmol/L [facility] BUN 10 6 - 19 mg/dL [facility] CREATININE 0.70 0.5 - 1.5 mg/dL [facility] GLUCOSE 80 70 - 99 mg/dL [facility] ALBUMIN 4.3 3.9 - 4.8 g/dL [facility] TOTAL PROTEIN 6.8 6.5 - 8.0 g/dL [facility] CALCIUM 9.5 8.4 - 10.3 mg/dL [facility] ALKALINE PHOSPHATASE 47 39 - 117 U/L [facility] TOTAL BILIRUBIN <0.2 0.0 - 1.2 mg/dL [facility] AST 18 0 - 37 U/L [facility] ALT 16 0 - 40 U/L [facility] GLOBULIN 2.5 1 - 4.8 g/dL [facility] EGFR 102 >59 mL/min/1.7 3m2 [facility] Comment:Estimated glomerular filtration rate calculated using the CKD-EPI refit equation. ANION GAP 14 10 - 20 mmol/L [facility] Blood 11/18/2024 11:5 7 AM EDT 11/18/2024 12:01 PM EDT us Narcisa Cohn MD LAB BLOOD ORDERABLES Final Res ult Performing Organization Address [facility]/ZIP Co de Phone Number [address] [phone] * 25-OH vitamin D (11/18/2024 11:57 AM EDT) 25 OH VIT D (TOTAL) 31 30 - 60 ng/mL [facility] Blood 11/18/2024 11:5 7 AM EDT 11/18/2024 12:01 PM EDT us Narcisa Cohn MD LAB BLOOD ORDERABLES Final Res ult Performing Organization Address City/[facility]/ZIP Co de Phone Number [address] [address] * Parathyroid hormone (PTH) (11/18/2024 11:57 AM EDT) PARATHYROID HORMONE 53 15 - 65 pg/mL [facility] Blood 11/18/2024 11:5 7 AM EDT 11/18/2024 12:02 PM EDT us Narcisa Cohn MD LAB BLOOD ORDERABLES Final Res ult Performing Organization Address City/[facility]/ZIP Co de Phone Number [address] [address] * PAP SMEAR FOR RESULT ENTRY ONLY (01/30/2017) Pap smear + HPV Historical Provider HEALTH MAINTENANCE Final Result * (ABNORMAL) Outside HDL (11/07/2016) Pathologist [facility] [place] HDL - External 36(A) 40 - 80 mg/dL Historical Provider LAB BLOOD ORDERABLES Linsey l Result * COLONOSCOPY FOR RESULT ENTRY ONLY (05/26/2016) Colonoscopy 3 adenomatous polyps Historical Provider HEALTH MAINTENANCE Final Result * Mammogram Outside (No Interpretation) (03/10/2013 12:00 AM EST) Narrative SYSTEMGENERATED, DOCUMENTATION - 04/29/2018 8:23 AM EST This study is for PACS storage only and not for interpretation. Provider Not In System PhD IMG OUTSIDE IMAGING W /OUT INTERPRETATION Final Result from Last 3 Months or Most Recently Relevant to Health Maintenance Insurance [facility] MEDICARE REPLACEMENT GILES HENDRICKSON [id number] [facility] MEDICARE REPLACEMENT [facility] MEDICARE REPLACEMENT [facility] MEDICARE REPLACEMENT [facility] MEDICARE REPLACEMENT [facility] MEDICARE REPLACEMENT Care Teams Vascular Specialists Relationship Specialty Start Date End Date Leonardo Perez PA [facility] [place] [address] PCP - General 05/08/22 Nichole Cabezas CNP 15 [facility], 2nd [place] [address] [email or web address] Historical LMR Provider 02/12/17 Self-Referred, Patient 05/08/22 Additional Source Comments The information contained in this document represents components of the legal health record. It is not the complete legal health record.[facility]
--- OUTSIDE RECORDS SUMMARY | 2024-12-26 10:18 | XMS_ITS | Encounter Summary ---
Author Organization [facility] Address [address] [place] [address] [place] [address] Phone Care Team Providers Care Group Home Supervisor Name Role Phone Santiago Prince MD Unavailable Raulito Nicholethierry Lovelace RECONCILIATION SPECIALIST Unavailable [phone] Mohit Sierra MD Unavailable [phone] Pcp, Unknown Primary Care Provider Unavailabl e Pcp, Unknown Primary Care Provider Unavailabl e Leonardo Perez Primary Care Provider + Self-Referred, Patient Unavailable Unavailab le Encounter Details Date Type Department Care Team (Late Contact Info) Description 08/14/2018 Procedure Pass [facility] Endoscopy Admitting Dept Virtual Department [address] [place], [place] [id number] Social History Tobacco Use Types Packs/Day Years [...] Description 03/23/2025 10:00 AM EST Office Visit [facility] [address] [place] [address] [address]rd Floor, [address] [place] [address] Farhat Caro DO 22 [facility] [address] [place] [address] [email or web address] documented as of this encounter Visit Diagnoses Not on filedocumented in this encounter Care Teams Group Home Supervisor Relationship Specialty Start Date End Date Pcp, Unknown PCP - General 05/20/19 08/01/20 Pcp, Unknown PCP - General 08/02/20 05/07/22 Leonardo Perez PA [address] [place] [address] PCP - General 05/08/22 Santiago Prince MD 22 [facility], [address] [place] [address] [email or web address] Historical LMR Provider 02/12/17 05/07/21 Nichole Cabezas CNP 15 [facility], 2nd [place] [address] [email or web address] Historical LMR Provider 02/12/17 Mohit Sierra MD [address] [address] [email or web address] Historical LMR Provider 02/12/17 05/07/21 Self-Referred, Patient 05/08/22 documented as of this encounter Additional Source Comments The information contained in this document represents components of the legal health record. It is not the complete legal health record.[facility]
--- OUTSIDE RECORDS SUMMARY | 2024-12-26 10:19 | XMS_ITS | Encounter Summary ---
Author Organization [facility] Address [address] [place] [address] [place] [address] Phone Care Team Providers Care Transformation Analyst Name Role Phone Santiago Prince MD Unavailable Raulito Nicholethierry Lovelace INVESTIGATOR FRAUD Unavailable [phone] Mohit Sierra MD Unavailable [phone] Pcp, Unknown Primary Care Provider Unavailabl e Pcp, Unknown Primary Care Provider Unavailabl e Leonardo Perez Primary Care Provider + Self-Referred, Patient Unavailable Unavailab le Encounter Details Date Type Department Care Team (Late st Contact Info) Description 01/08/2018 Procedure Pass [facility], Ct Scan - [address] [address] Social History Tobacco Use Types Packs/Day Years [...] Description 03/23/2025 10:00 AM EST Office Visit [facility] [address] [place] [address] 3rd Floor, [address] [place] [address] Farhat Caro, 22 [facility] 301 [place] [address] [email or web address] documented as of this encounter Visit Diagnoses Not on filedocumented in this encounter Care Teams Transformation Analyst Relationship Specialty Start Date End Date Pcp, Unknown PCP - General 05/20/19 08/01/20 Pcp, Unknown PCP - General 08/02/20 05/07/22 Leonardo Perez PA [address] [place] [address] PCP - General 05/08/22 Santiago Prince MD 22 [facility], [address] [place] [address] [email or web address] Historical LMR Provider 02/12/17 05/07/21 Nichole Cabezas, TRINITY 15 [facility], 2nd [place] [address] [email or web address] Historical LMR Provider 02/12/17 Mohit Sierra MD [address] [address] [email or web address] Historical LMR Provider 02/12/17 05/07/21 Self-Referred, Patient 05/08/22 documented as of this encounter Additional Source Comments The information contained in this document represents components of the legal health record. It is not the complete legal health record.[facility]
--- OUTSIDE RECORDS SUMMARY | 2024-12-26 10:19 | XMS_ITS | Encounter Summary ---
Author Organization [facility] Address [address] [place] [address] [place] [address] Phone Care Team Providers Care Sql Programmer Analyst Name Role Phone Santiago Prince MD Unavailable Raulito Nicholethierry Lovelace ACCOUNTS RECEIVABLE ADMINISTRATOR Unavailable [phone] Mohit Sierra MD Unavailable [phone] Pcp, Unknown Primary Care Provider Unavailabl e Pcp, Unknown Primary Care Provider Unavailabl e Leonardo Perez Primary Care Provider + Self-Referred, Patient Unavailable Unavailab le Encounter Details Date Type Department Care Team (Late st Contact Info) Description 02/09/2018 Procedure Pass [facility], Ct Scan - [address] [address] Social History Tobacco Use Types Packs/Day Years [...] Description 03/23/2025 10:00 AM EST Office Visit [facility] [address] [place] [address] 3rd Floor, [address] [place] [address] Farhat Caro, 22 [facility] 301 [place] [address] [email or web address] documented as of this encounter Visit Diagnoses Not on filedocumented in this encounter Care Teams Sql Programmer Analyst Relationship Specialty Start Date End Date Pcp, Unknown PCP - General 05/20/19 08/01/20 Pcp, Unknown PCP - General 08/02/20 05/07/22 Leonardo Perez PA [address] [place] [address] PCP - General 05/08/22 Santiago Prince MD 22 [facility], [address] [place] [address] [email or web address] Historical LMR Provider 02/12/17 05/07/21 Nichole Cabezas, TRINITY 15 [facility], 2nd [place] [address] [email or web address] Historical LMR Provider 02/12/17 Mohit Sierra MD [address] [address] [email or web address] Historical LMR Provider 02/12/17 05/07/21 Self-Referred, Patient 05/08/22 documented as of this encounter Additional Source Comments The information contained in this document represents components of the legal health record. It is not the complete legal health record.[facility]
--- OUTSIDE RECORDS SUMMARY | 2024-12-26 10:19 | XMS_ITS | Encounter Summary ---
Author Organization [facility] Address [address] [place] [address] Phone Care Team Providers Care Gold Buyer Name Role Phone Nichole Cabezas BELT MAKER HELPER Unavailable [phone] Leonardo Perez Primary Care Provider + Self-Referred, Patient Unavailable Unavailab le Encounter Details Date Type Department Care Team (Late st Contact Info) Description 08/03/2023 Procedure Pass [facility], Ct Scan - [facility] [address] [place] [address] Social History Tobacco Use Types Packs/Day Years [...] as food, clothing, or medical care? No 08/03/2023 In the past 12 months have y ou been in a relationship with a person who hurts, threatens, or tries to control you? No 08/03/2023 Are you denied basic needs s uch as food, clothing, or medical care? No 08/03/2023 In the past 12 months have y ou been in a relationship with a person who hurts, threatens, or tries to control you? No 08/03/2023 Comments Unknown Sex and Gender Information Value Date Recorded Sex Assigned at Female 02/06/2018 12:12 PM EDT Legal Sex Female 9:36 PM EDT Gender Identity Female 02/06/2018 12:12 PM EDT Sexual Orientation Straight 08/02/2020 7: 11 AM EDT documented as of this encounter Functional Status * Calculated C-SSRS Risk Score (Lifetime/Recent) Answer Date of Assessment Author No Risk Indicated 08/03/2023 12:42 PM EDT Gordo Randhawa RN * [place] Suicide Severity Rating Scale (Screener/Recent Self-Report) Question Answer Date of Assessment Author 1. Wish to be (Past 1 Month) No 08/03/2023 12:42 PM EDT Simón Yen RN 2. Non-Specific Active Suici bruce Thoughts (Past 1 Month) No 08/03/2023 12:42 PM EDT Kimberly Yen RN 6. Suicidal Behavior (Lifetime) No 12:42 PM EDT Gordo Yen RN documented as of this encounter Plan of Treatment Upcoming Encounters Date Type Department Care Team (Late st Contact Info) Description 03/23/2025 10:00 AM EST Office Visit [facility] [address] [place] [address] 3rd Floor, [address] [place] [address] Farhat Caro DO 22 [facility] [address] [place] [address] documented as of this encounter Visit Diagnoses Not on filedocumented in this encounter Care Teams Gold Buyer Relationship Specialty Start Date End Date Leonardo Perez PA [address] [place] [address] PCP - General 05/08/22 Nichole Cabezas, BELT MAKER HELPER 15 [facility], [address] [place] [address] [email or web address] Historical LMR Provider 02/12/17 Self-Referred, Patient 05/08/22 documented as of this encounter Additional Source Comments The information contained in this document represents components of the legal health record. It is not the complete legal health record.[facility]
[2024-12-26 10:37] LABS: Hematocrit 38.4 % (37.0-47.0); Hemoglobin 13.1 g/dl (12.0-16.0); Mean Corpuscular HGB Conc 34.1 g/dl (31.0-35.0); Mean Corpuscular Hemoglobin 29.5 pg (27.0-33.0); Mean Corpuscular Volume 86.5 fL (80.0-98.0); NRBC Abs Auto 0.000 X10*3/uL (0.0-0.012); NRBC Pct Auto 0.0 /100WBC (0.0-0.2); Platelet Count 267 X10*3/uL (160-400); Red Blood Count 4.44 X10*6/uL (4.20-5.50); White Blood Count 5.1 X10*3/uL (4.8-10.8)
[2024-12-26 11:26] LABS: Alanine Aminotransferase 22 U/L (0-31); Albumin Level 4.6 g/dL (3.5-5.0); Alkaline Phosphatase 48 U/L (39-117); Anion Gap 14 (12-20); Aspartate Amino Transferase 21 U/L (5-31); Blood Urea Nitrogen 14 mg/dL (9-16); Calcium 9.7 mg/dL (8.4-10.2); Carbon Dioxide 29 mmol/L (22-29); Chloride 101 mmol/L (96-108); Cholesterol 285 mg/dL (<200); Estimated Glomerular Filt Rate > 60; HDL Cholesterol 60 mg/dL (>40); Potassium 4.3 mmol/L (3.3-5.1); Sodium 140 mmol/L (135-145); Total Protein 7.2 g/dL (6.5-8.0); Triglycerides 121 mg/dL (<150)
[2024-12-26 13:42] LABS: Free T4 (Free Thyroxine) 1.18 ng/dL (0.71-1.85)
== END 2024-12-26 09:33 | disposition home or self-care (01) ==
LOC: HO.LAB 09:32
PROVIDERS: PCP Physician Assistant; Visit Provider Physician Assistant
DX: E06.3 Autoimmune thyroiditis (principal); E78.2 Mixed hyperlipidemia; E21.3 Hyperparathyroidism, unspecified; E03.8 Other specified hypothyroidism; I10 Essential (primary) hypertension; E55.9 Vitamin D deficiency, unspecified
CPT/HCPCS: 36415; 80048; 80053; 80061; 82306; 84100; 84439; 84443; 85027

== ENCOUNTER 2025-02-06 12:34 | Outpatient (REF) | payer OTHER, SELFPAY ==
--- NOTE | ~2025-02-06 | CT_ITS ---
EXAMINATION: CT LOW-DOSE SCREENING CHEST WITHOUT CONTRAST CLINICAL INFORMATION: 54-year-old female, smoker, 22 pack years, lung cancer screening. COMPARISON: 02/05/2024. TECHNIQUE: Multidetector volumetric CT imaging of the chest is performed on a Siemens SOMATOM Definition scanner without contrast using low dose technique. Additional 2D coronal and sagittal reformatted images and axial 3D maximum intensity projection (MIP) images are generated on the CT workstation. This CT examination was performed using dose optimization techniques as appropriate, variously including the following: *Automated exposure control *Adjustment of mA and/or kV according to patient size (this includes techniques or standardized protocols for targeted exams where dose is matched to indication/reason for exam; i.e. extremities or head) *Use of iterative reconstruction technique FINDINGS: PULMONARY NODULES: There are a few scattered stable tiny calcified granulomata. A 2 mm nodule in the right major fissure is unchanged, most likely an intrapulmonary lymph node. No new or enlarging pulmonary nodule. LUNGS: Mild centrilobular emphysema with upper lobe predominance, similar. Mild scarring in the right posterior costophrenic sulcus, unchanged. Lungs otherwise clear without abnormal opacity. Small airways appear normal without thickening. No pneumothorax or pleural effusion. Central airways are patent. MEDIASTINUM: Thyroid is largely obscured. No mass or lymphadenopathy present. Aorta is mildly calcified, however normal in caliber and contour. There is no aneurysm. The main pulmonary artery is normal in size. Heart size is normal. There is no pericardial effusion. There is a small type I hiatus hernia present. Esophagus is otherwise normal. CORONARY ARTERY CALCIFICATION: Moderate. CHEST WALL/AXILLA: No mass or abnormal lymph nodes. UPPER ABDOMEN: Imaged contents of the upper abdomen are normal allowing for low-dose noncontrast technique OSSEOUS STRUCTURES: No suspicious lytic or blastic bone lesion. Mild degenerative changes in the spine. CT/CT lung screening IMPRESSION: 1. There are no suspicious, new or enlarging pulmonary nodules. 2. Mild emphysema without active lung disease. ASSESSMENT: 1. Lung-RADS Category 2: Benign appearance or behavior of nodules. 2. Lung-RADS Category S: None. RECOMMENDATION: Continued routine annual low-dose CT lung screening in 1 year is recommended. An order for CT CHEST LOW DOSE CANCER SCREENING ([id number]) can be placed. Electronically signed by: Raphael Cortez MD 02/06/2025 01:51 PM EDT
== END 2025-02-06 12:35 | disposition home or self-care (01) ==
LOC: HO.CT 12:34
PROVIDERS: PCP Physician Assistant; Visit Provider Physician Assistant Medical
DX: Z12.2 Encounter for screening for malignant neoplasm of respiratory organs (principal); F17.210 Nicotine dependence, cigarettes, uncomplicated
CPT/HCPCS: 71271

== ENCOUNTER → 2025-02-06 12:35 | Outpatient (BNV) | payer OTHER, SELFPAY | PROVIDERS: PCP Physician Assistant; Visit Provider Radiology Diagnostic Radiology | DX: F17.210 Nicotine dependence, cigarettes, uncomplicated (principal) | CPT/HCPCS: 71271 ==

== ENCOUNTER 2025-04-18 10:32 | Outpatient (REF) | payer OTHER, SELFPAY ==
--- OUTSIDE RECORDS SUMMARY | 2013-03-10 | XMS_ITS | Encounter Summary ---
Author Organization [facility] Address [address] [place] [id number] Phone Care Team Providers Care Distance Education Teacher Name Role Phone Unavailable Primary Care Provider Unavailabl e Encounter Details Date Type Department Care Team (Late st Contact Info) Description 03/10/2013 Hospital Encounter [facility],Outside Imaging [address] [place] [address] System, Provider Not In, [facility] [address] [address] Social History Tobacco Use Types Packs/Day Years Used Date Smoking Tobacco: Former Cigarettes Q uit: 2021 Smokeless Tobacco: Never Alcohol Use Standard Drinks/Week Comments No 0 (1 standard drink = 0.6 oz pur e alcohol) Education Answer Date Recorded Are you interested in more education? Not on jono e 08/25/2022 Are you concerned about learning? Not on file 08/25/2022 No 08/25/2022 No 08/25/2022 Food Answer Date Recorded Within the past 6 months we worried whether our food would run out before we got money to buy more. Never True 04/11/2025 Within the past 6 months the food we bought just didn't last and we didn't have enough money to get more. Never True Residential Stability Answer Date Recor ded What is your housing situation today? I have fer sing 04/11/2025 How many times have you move d in the past 12 months? Zero (I did not move) 04/11/2025 Paying for Meds Answer Date Recorded Do you have trouble paying for medicines? No 04/11/2025 Paying Utility Bills Answer Date Record ed Do you have trouble paying your heating or elect ricity bill? No 04/11/2025 Transportation Answer Date Recorded Has the lack of transportati on kept you from medical appointments or from getting medications? No 04/11/2025 Digital Access Answer Date Recorded No 04/11/2025 Yes 04/11/2025 Do you have reliable internet access at home? Ye s 04/11/2025 Do you have a device (e.g., phone, tablet, computer) with a working camera? Yes 04/11/2025 Intimate Partner Violence Answer Date R ecorded Are you denied basic needs s uch as food, clothing, or medical care? No 04/11/2025 In the past 12 months have y ou been in a relationship with a person who hurts, threatens, or tries to control you? No 04/11/2025 Are you denied basic needs s uch as food, clothing, or medical care? No 04/11/2025 In the past 12 months have y ou been in a relationship with a person who hurts, threatens, or tries to control you? No 04/11/2025 Comments No Sex and Gender Information Value Date Recorded Sex Assigned at Female 02/06/2018 12:12 PM EDT Legal Sex Female 9:36 PM EDT Gender Identity Female 02/06/2018 12:12 PM EDT Sexual Orientation Straight 08/02/2020 7: 11 AM EDT documented as of this encounter Plan of Treatment Upcoming Encounters Date Type Department Care Team (Late st Contact Info) Description 04/10/2025 Procedure Pass [facility] [address] [place] [address] 04/29/2025 10:40 AM EST Office Visit [facility] [address] [place] [address] Narcisa oChn MD [address] [place] [id number] [email or web address] 05/27/2025 3:45 PM EST Appointment [facility] [address] [place] [address] Farhat Caro DO [facility] [address] [place] [address] 06/10/2025 12:30 PM EST Office Visit [facility] [address] [facility] [address]rd Floor, [address] [place] [address] Jayla Wagoner, TRIN[facility] [address] [facility], [address] [place] [address] [email or web address] documented as of this encounter Procedures Procedure Name Priority Date/Time Associated Diagnosis Comments BI MAMMOGRAM OUTSIDE (NO INTERPRETATION) Routine 03/10/2013 12:00 AM EST documented in this encounter Results * Mammogram Outside (No Interpretation) (03/10/2013 12:00 AM EST) Narrative SYSTEMGENERATED, DOCUMENTATION - 04/29/2018 8:23 AM EST This study is for PACS storage only and not for interpretation. us Provider Not In System [facility] OUTSIDE IMAGING W /OUT INTERPRETATION Final Result documented in this encounter Visit Diagnoses Not on filedocumented in this encounter Additional Health Concerns Infection Onset Date Last Indicated Resolved Time Resp-Risk 04/11/2025 04/11/2025 documented as of this encounter Additional Source Comments The information contained in this document represents components of the legal health record. It is not the complete legal health record.[facility]
--- OUTSIDE RECORDS SUMMARY | 2025-04-18 10:34 | XMS_ITS | Encounter Summary ---
Author Organization [facility] Address [address] [place] [address] Phone Care Team Providers Care Crematorium Operator Name Role Phone Santiago Prince MD Unavailable Raulito Nicholethierry Lovelace GLOVE FINISHER Unavailable [phone] Mohit Sierra MD Unavailable [phone] Pcp, Unknown Primary Care Provider Unavailabl e Pcp, Unknown Primary Care Provider Unavailabl e Leonardo Perez Primary Care Provider + Self-Referred, Patient Unavailable Unavailab le Encounter Details Date Type Department Care Team (Late st Contact Info) Description 03/30/2017 Ancillary Orders [facility] [address] [place] [address] Mohit Sierra MD [address] [place] [address] [place] [address] [email or web address] Syncope, unspecified syncope type Social History Tobacco [...] Contact Info) Description 04/10/2025 Procedure Pass [facility] [address] [place] [address] 04/29/2025 10:40 AM EST Office Visit [facility] [address] [place] [address] Narcisa Cohn MD [address] [place] [address] [email or web address] 05/27/2025 3:45 PM EST Appointment [facility] [address] [place] [address] [place] [address] Farhat Caro DO [address] [address] 06/10/2025 12:30 PM EST Office [facility] [address] [place] [address], [address] [place] [address] Jayla Wagoner CNP [address] [place] [address], [address] [address] [email or web address] documented as of this encounter Results * TTE COMPREHENSIVE (04/13/2017 2:03 PM EST) Anatomical Region Laterality Modality Heart Ultrasound us Mohit Sierra MD CV ECHO ORDERABLES Final Result documented in this encounter Visit Diagnoses Diagnosis Syncope, unspecified syncope type documented in this encounter Additional Health Concerns Infection Onset Date Last Indicated Resolved Time Resp-Risk 04/11/2025 04/11/2025 documented as of this encounter Care Teams Crematorium Operator Relationship Specialty Start Date End Date Pcp, Unknown PCP - General 05/20/19 08/01/20 Pcp, Unknown PCP - General 08/02/20 05/07/22 Leonardo Perez PA [address] [place] [address] PCP - General 05/08/22 Santiago Prince MD 22 [facility], [address] [place] [address] [email or web address] Historical LMR Provider 02/12/17 05/07/21 Nichole Cabezas CNP 15 [facility], 2nd [place] [address] [email or web address] Historical LMR Provider 02/12/17 Mohit Sierra MD [address] [address] [email or web address] Historical LMR Provider 02/12/17 05/07/21 Self-Referred, Patient 05/08/22 documented as of this encounter Additional Source Comments The information contained in this document represents components of the legal health record. It is not the complete legal health record.[facility]
--- OUTSIDE RECORDS SUMMARY | 2025-04-18 10:34 | XMS_ITS | Clinical Summary ---
Author Organization [facility] Address [address] [place] [address] Phone Care Team Providers Care Meat Counter Worker Name Role Phone Nichole Cabezas PAIRING MACHINE OPERATOR Unavailable [phone] Leonardo Perez Primary Care Provider + Self-Referred, Patient Unavailable Unavailab le Allergies Active Allergy Reactions Criticality Noted Date Comments Amoxicillin-Pot Clavulanate 03/01/2017 Banana Anaphylaxis High 02/21/2017 Clavulanic Acid Anaphylaxis High 11/05/2024 Ketorolac Rash Low 02/21/2017 Kiwi (Actinidia Chinensis) Anaphylaxis High 03/01/20 17 Oxybutynin Other (See Comments),Palpitatio ns,Swelling Low 05/19/2023 Prochlorperazine 03/01/2017 Cnocqav-Ked-Chu Reductase Inhibitors Myositis High 11/05/2024 rhabdomylosis Medications lisinopril (PRINIVIL,ZESTR IL) 20 MG tablet Take 10 mg by mouth daily. Active acetaminophen-c odeine (TYLENOL #3) 300-30 mg per tablet Take 1 tablet by mouth every 8 (eight) hours as needed. Active cholecalciferol (VITAMIN D3) 25 MCG (1,000 unit) tablet Take 1 tablet (1,000 Units total) by mouth daily. 90 tablet 2 5 Active levothyroxine (SYNTHROID, LEVOTHROID) 88 MCG tablet Take 1 tablet (88 mcg total) by mouth daily. 90 tablet 5 Active LORazepam (ATIVAN) 0.5 MG tablet Take 1 tablet (0.5 mg total) by mouth every 6 (six) hours as needed for anxiety. 12 tablet 5 Active levothyroxine (SYNTHROID, LEVOTHROID) 75 MCG tablet Take 1 tablet (75 mcg total) by mouth every morning. 90 tablet 2 5 04/03/20 25 Discontinu ed(Dose adjustment ) Active Problems Problem Noted Date Diagnosed Date Palpitations 04/10/2025 Cardiac murmur, unspecified 04/10/2025 Shoulder joint hypermobility 11/05/2024 Overview (11/05/2024): Recurrent bilateral shoulder dislocations onset in childhood; diagnosed with hypermobility at age 6 MRI right shoulder ([place]) consistent with labral tear per patient report [...] 12:38 PM EDT): Previously evaluated by established supervisor putty and caluking Dr. Black However, she has had subsequent episodes of low phosphorus to 1.8, symptomatic and requiring IV phosphorus repletion. I have advised her to revisit the question of hyperparathyroidism with her supervisor putty and caluking. Assessment & Plan (08/03/2023 2:26 PM EDT): [...] pancreatitis & GERD with PUD. CT scan 2017 showed thickening in sigmoid colon concerning for [...] fall. Continue current pain medication regimen with [facility]. Controlled substance contract was reviewed with her today. Assessment & Plan (10/10/2017 6:11 AM EDT): Advised to hold NSAIDs because of GI sx. She was given rx for norco, no more than 2 tabs daily & can take addition tylenol if needed. Max dose of tylenol reviewed. KEN Dooley Assessment & Plan (06/20/2017 7:04 PM [...] had a thyroid ultrasound on 04/18/2023 at [facility] compared to previous ultrasound on 10/10/2019 [...] weeks after restarting levothyroxine. Essential hypertension 03/01/2017 Overview (04/10/2025): As mentioned we will get an echo hopefully she will not have significant LVH or valvular heart disease. 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 Based on her levels we may need to consider the more novel agents History of cervical cancer 03/01/2017 Overview (04/18/2018): States this was dx while w her twins at age 20. She says she was treated with laser surgery Chronic biliary pancreatitis 03/01/2017 Assessment & Plan (04/10/2025 9:30 AM EST): Present but stable Other chronic pain 03/01/2017 Pain in joint [...] Encounters Date Type Department Care Team Description 04/16/2025 Telephone [facility] [address], [address] [place] [address] Janessa Villafana 04/11/2025 9:58 AM EST - 04/11/2025 3:44 PM EST Emergency [facility] [address] [place] [address] Discharge Disposition: Home or Self Care 04/11/2025 Telephone [facility] [address] [place] [address] Narcisa Cohn MD Update from the ED 04/10/2025 9:15 AM EST Office Visit [facility] [address], [address] [place] [address] Farhat Caro DO Cardiac murmur, unspecified (Primary Dx); Palpitations; Essential hypertension; Hypertriglyceridemia ; Chronic biliary pancreatitis 04/04/2025 1:59 PM EST - 04/04/2025 6:13 PM EST Emergency [facility] [address] [place] [address] Jonah Turner MD Discharge Disposition: Home or Self Care from Last 3 Months Family History Medical [...] housing situation today? I have fer dubois 04/11/2025 How many times have you move [...] Orientation Straight 08/02/2020 7: 11 AM EDT Last Filed Vital Signs Vital Sign Reading Time Taken Comments Blood Pressure 146/90 04/11/2025 3:17 PM EST Pulse 76 04/11/2025 3:17 PM EST Temperature 36.4 C (97.5 F) 04/11/2025 3:17 PM EST Respiratory Rate 15 04/11/2025 3:17 PM EST Oxygen Saturation 99% 04/11/2025 3:17 PM EST Inhaled Oxygen Concentration - - Weight 63.5 kg (140 lb) 04/11/2025 9:53 AM EST Height 165.1 cm (5' 5 ) 04/11/2025 9:53 AM EST Body Mass Index 23.3 04/11/2025 9:53 AM EST Plan of Treatment Upcoming Encounters Date Type Department Care Team (Late st Contact Info) Description 04/10/2025 Procedure Pass [facility] [address] [place] [address] [place] [address] 04/29/2025 10:40 AM EST Office Visit [facility] [address] [place] [address] Narcisa Cohn MD [address] [place] [phone] [email or web address] 05/27/2025 3:45 PM EST Appointment [facility] [address] [place] [address] Farhat Caro DO [address] [place] [address] 06/10/2025 12:30 PM EST Office Visit [facility] [address], [address] [place] [address] Jayla Wagoner CNP [address], [address] [place] [address] [email or web address] Health Maintenance Due Date Last Done Comments Adult Td,Tdap Booster 1969 DEPRESSION SCREENING 1981 SMOKING Hx and SMOKELESS TOBACCO SCREENING 1982 HEPATITIS C SCREENING 1987 HIV ONE-TIME SCREENING (18-65 YEARS) 1987 PNEUMOCOCCAL VACCINES (50+ years) (1 of 2 - PCV) 1988 COLOGUARD 2014 FIT TEST 2014 FOBT 2014 SIGMOIDOSCOPY 2014 VIRTUAL COLONOSCOPY 2014 MAMMOGRAM 03/10/2015 03/10/2013 PAP SMEAR 10/08/2017 01/30/2017 RSV VACCINE (1 - Risk 50-74 years 1-dose series) 2019 ZOSTER VACCINES (1 of 2) 2019 COLONOSCOPY 05/26/2019 05/26/2016 COLORECTAL CANCER SCREENING 05/26/2019 LIPID PANEL 11/07/2021 11/07/2016, 10/28, 11/07/2016 INFLUENZA VACCINE (#1) 2024 COVID-19 VACCINE ( season) 2024 04/15/2021, 10/02/2020, 09/11/2020 BLOOD PRESSURE 10/09/2025 04/10/2025 CREATININE LEVEL 04/11/2026 04/11/2025, 09/2024, 03/30/2025, Additional history exists POTASSIUM LEVEL 04/11/2026 04/11/2025, 09/2024, 03/30/2025, Additional history exists TSH LEVEL 04/11/2026 04/11/2025, 09/2024, 03/30/2025, Additional history exists HEPATITIS A VACCINES Aged [...] Procedure Name Priority Date/Time Associated Diagnosis Comments CATECHOLAMINE, FRACTIONATED, PLASMA STAT 04/11/2025 2:24 PM EST TROPONIN STAT 04/11/2025 11:18 AM EST XR CHEST PORTABLE Routine 04/11/2025 10: 20 AM EST PHOSPHORUS STAT 04/11/2025 10:13 AM EST MAGNESIUM STAT 04/11/2025 10:13 AM EST LIPASE STAT 04/11/2025 10:13 AM EST LFTS (HEPATIC PANEL) STAT 04/11/2025 10:13 AM EST TSH WITH REFLEX STAT 04/11/2025 10:13 AM EST CBC AND DIFFERENTIAL STAT 04/11/2025 10:13 AM EST TROPONIN STAT 04/11/2025 10:13 AM EST BASIC METABOLIC PANEL (BMP) STAT 04/11/2025 10:13 AM EST CBC AND DIFFERENTIAL STAT 04/11/2025 10:13 AM EST SARS-COV-2, INFLUENZA A/B, PCR ADRIANA STAT 04/11/2025 9:56 AM EST COVID PANDEMIC RESPIRATORY VIRAL ORDER (PRO) STAT 04/11/2025 9:56 AM EST ECG 12-LEAD STAT 04/11/2025 9:49 AM EST LAB ADD-ON STAT 04/04/2025 3:52 PM EST FREE T4 STAT 04/04/2025 2:06 PM EST PHOSPHORUS STAT 04/04/2025 2:06 PM EST TSH WITH REFLEX STAT 04/04/2025 2:06 PM EST MAGNESIUM STAT 04/04/2025 2:06 PM EST BASIC METABOLIC PANEL (BMP) STAT 04/04/2025 2:06 PM EST ECG 12-LEAD STAT 04/04/2025 1:50 PM EST RENAL PANEL Routine 03/30/2025 2:17 PM EST Hypophosphatemia THYROID STIMULATING HORMONE (TSH) Routine 03/30/2025 2:17 PM EST Subclinical hypothyroidism FREE T4 Routine 03/30/2025 2:17 PM EST Subclinical hypothyroidism PAP SMEAR FOR RESULT ENTRY ONLY Routine 01/30/2017 OUTSIDE HDL Routine 11/07/2016 COLONOSCOPY FOR RESULT ENTRY ONLY Routine 05/26/2016 BI MAMMOGRAM OUTSIDE (NO INTERPRETATION) Routine 03/10/2013 12:00 AM EST from Last 3 Months or Most Recently Relevant to Health Maintenance Results * Catecholamine, Fractionated, Plasma (04/11/2025 2:24 PM EST) Norepinephrine 345 pg/mL 04/15/2025 3:06 PM EST [facility] [employer] [address] Comment: REFERENCE VALUE 70-750 (Supine) 200-1700 (Standing) Epinephrine 53 pg/mL 04/15/2025 3:06 PM EST [facility] Comment: REFERENCE VALUE <111 (Supine) <141 (Standing) Dopamine <25 pg/mL 04/15/2025 3:06 PM EST [facility] Comment: REFERENCE VALUE <30 (no postural change) ADDITIONAL INFORMATION PLEASE NOTE: High/Low flagging is based on supine normal values. This test was developed and its performance characteristics determined by [facility] in a manner consistent with CLIA requirements. This test has not been cleared or approved by the U.S. Food and Drug Administration. Blood (Blood) Venipuncture / Unknown 04/11/2025 2:24 PM EST 04/11/2025 2:29 PM EST us Peyman Green PA-C LAB BLOOD BKR ORDERABLES Linsey leonardo Result RAM (BEAKER) [facility] [address] [place], [place] [address] [phone] * Troponin (04/11/2025 11:18 AM EST) Only the most recent of2 resultswithin the time period is included. Troponin-T HS Gen5 <6 0 - 9 ng/L 04/11/2025 12:02 PM EST [facility] Blood (Blood) Venipuncture / Unknown 04/11/2025 11:18 AM EST 04/11/2025 11:44 AM EST us Tashi Quintanilla MD LAB BLOOD BKR ORD ERABLES Final Result [address] [address] * XR Chest Portable (04/11/2025 10:20 AM EST) Anatomical Region Laterality Modality Chest Computed Radiogr aphy 04/11/2025 11:0 3 AM EST Impressions 04/11/2025 11:06 AM EST No acute abnormality. Narrative 04/11/2025 11:06 AM EST XR CHEST PORTABLE Referring clinician's provided indication for this examination in [facility]: Weakness/Malaise COMPARISON: XR CHEST PA AND LATERAL 2 VIEWS FINDINGS: Devices/Tubes/Lines: None. Lungs: Mild right basilar atelectasis. No focal consolidation or pulmonary edema. Pleura: No pleural effusion or pneumothorax. Heart/Mediastinum: Normal heart and mediastinum. Bones/Soft Tissues: No significant abnormality. Procedure Note Casimiro Irving MD - 04/11/2025 XR CHEST PORTABLE Referring clinician's provided indication for this examination in [facility]:Weakness/Malaise COMPARISON: XR CHEST PA AND LATERAL 2 VIEWS FINDINGS: Devices/Tubes/Lines: None. Lungs: Mild right basilar atelectasis. No focal consolidation or pulmonaryedema. Pleura: No pleural effusion or pneumothorax. Heart/Mediastinum: Normal heart and mediastinum. Bones/Soft Tissues: No significant abnormality. IMPRESSION: No acute abnormality. us Peyman Green PANishant IMG XR CHEST Final Result * CBC and Differential (04/11/2025 10:13 AM EST) WBC 5.86 4.00 - 11.00 K/uL 04/11/2025 10:29 AM EST [facility] RBC 4.51 4.00 - 5.20 M/uL 04/11/2025 10:29 AM [facility] Hemoglobin 13.5 12.0 - 16.0 g/dL 04/11/2025 10:29 AM [facility] Hematocrit 38.6 36.0 - 46.0 % 04/11/2025 10:29 AM [facility] MCV 85.6 80.0 - 100.0 fL 04/11/2025 10:29 AM [facility] MCH 29.9 27.0 - 31.0 pg 04/11/2025 10:29 AM [facility] MCHC 35.0 32.0 - 36.0 g/dL 04/11/2025 10:29 AM [facility] MPV 9.2 8.4 - 12.0 fL 04/11/2025 10:29 AM [facility] RDW-CV 12.3 11.5 - 14.5 % 04/11/2025 10:29 AM [facility] PLT 265 150 - 450 K/uL 04/11/2025 10:29 AM [facility] Neutrophils 44.1 % 04/11/2025 10:29 AM [facility] Lymphocytes 46.1 % 04/11/2025 10:29 AM [facility] Monocytes 7.7 % 04/11/2025 10:29 AM [facility] Eosinophils 1.4 % 04/11/2025 10:29 AM [facility] Basophils 0.5 % 04/11/2025 10:29 AM [facility] Imm Grans 0.2 % 04/11/2025 10:29 AM [facility] NRBC 0.0 <=0.0 /100 WBCs 04/11/2025 10:29 AM [facility] Absolute Neutrophils 2.59 1.92 - 7.60 K/uL 04/11/2025 10:29 AM [facility] Absolute Lymphocytes 2.70 0.72 - 4.10 K/uL 04/11/2025 10:29 AM [facility] Absolute Monocytes 0.45 0.16 - 1.10 K/uL 04/11/2025 10:29 AM [facility] Absolute Eosinophils 0.08 0.00 - 0.50 K/uL 04/11/2025 10:29 AM [facility] Absolute Basophils 0.03 0.00 - 0.15 K/uL 04/11/2025 10:29 AM [facility] Absolute Imm Grans 0.01 0.00 - 0.09 K/uL 04/11/2025 10:29 AM [facility] Absolute NRBC 0.00 <=0.00 K cells/uL 04/11/2025 10:29 AM [facility] Absolute Neutrophils 2.59 1.92 - 7.60 K/uL 04/11/2025 10:29 AM [facility] Comment:Automated cell count . Manual ANC may differ if performed. Diff Type Auto 04/11/2025 10:29 AM [facility] Blood (Blood) Venipuncture / Unknown 04/11/2025 10:13 AM EST 04/11/2025 10:26 AM EST us Tashi Quintanilla MD LAB BLOOD BKR ORD ERABLES Final Result [address] [address] * Thyroid Stimulating Hormone (TSH), with Reflex (04/11/2025 10:13 AM EST) Only the most recent of2 resultswithin the time period is included. TSH 2.49 0.40 - 5.00 uIU/mL 04/11/2025 11:06 AM [facility] Blood (Blood) Venipuncture / Unknown 04/11/2025 10:13 AM EST 04/11/2025 10:26 AM EST us Peyman Green PA-C LAB BLOOD BKR ORDERABLES Linsey l Result Performing Organization Address City/[facility]/ZIP Co de Phone Number [address] [address] * Hepatic Panel (LFTs) (04/11/2025 10:13 AM EST) AST 14 <33 U/L 04/11/2025 11:06 AM [facility] ALT 12 <34 U/L 04/11/2025 11:06 AM [facility] Alkaline Phosphatase 42 40 - 130 U/L 04/11/2025 11:06 AM [facility] Bilirubin, Total 0.3 0.0 - 1.2 mg/dL 04/11/2025 11:06 AM [facility] Bilirubin, Direct 0.1 0.0 - 0.3 mg/dL 04/11/2025 11:06 AM [facility] Total Protein 7.4 6.4 - 8.3 g/dL 04/11/2025 11:06 AM [facility] Albumin 4.6 3.5 - 5.2 g/dL 04/11/2025 11:06 AM [facility] Globulin 2.8 1.9 - 4.1 g/dL 04/11/2025 11:06 AM [facility] Blood (Blood) Venipuncture / Unknown 04/11/2025 10:13 AM EST 04/11/2025 10:26 AM EST Peyman Green PA-C LAB BLOOD BKR ORDERABLES Linsey l Result [address] [address] * Phosphorus (04/11/2025 10:13 AM EST) Only the most recent of2 resultswithin the time period is included. Phosphorus 2.7 2.5 - 4.5 mg/dL 04/11/2025 11:06 AM [facility] Blood (Blood) Venipuncture / Unknown 04/11/2025 10:13 AM EST 04/11/2025 10:26 AM EST Peyman SKAGGS-Prakash LAB BLOOD BKR ORDERABLES Linsey l Result [address] [address] * Magnesium (04/11/2025 10:13 AM EST) Only the most recent of2 resultswithin the time period is included. Pathologist [facility] Magnesium 1.9 1.7 - 2.6 mg/dL 04/11/2025 11:06 AM [facility] Blood (Blood) Venipuncture / Unknown 04/11/2025 10:13 AM EST 04/11/2025 10:26 AM EST Peyman SKAGGS-C LAB BLOOD BKR ORDERABLES Linsey l Result Performing Organization Address City/[facility]/ZIP Co de Phone Number [address] [address] * Lipase (04/11/2025 10:13 AM EST) [facility] Lipase 27 13 - 60 U/L 04/11/2025 11:06 AM [facility] Blood (Blood) Venipuncture / Unknown 04/11/2025 10:13 AM EST 04/11/2025 10:26 AM EST Peyman SKAGGS-C LAB BLOOD BKR ORDERABLES Linsey l Result Performing Organization Address City/[facility]/ZIP Co de Phone Number [address] [address] * (ABNORMAL) Basic Metabolic Panel (BMP) (04/11/2025 10:13 AM EST) Only the most recent of2 resultswithin the time period is included. [facility] Sodium 133(L) 136 - 145 mmol/L 04/11/2025 11:06 AM [facility] Potassium 4.6 3.4 - 5.1 mmol/L 04/11/2025 11:06 AM [facility] Chloride 98 98 - 107 mmol/L 04/11/2025 11:06 AM [facility] CO2 22 20 - 31 mmol/L 04/11/2025 11:06 AM [facility] BUN 10 6 - 23 mg/dL 04/11/2025 11:06 AM [facility] Creatinine 0.60 0.50 - 1.00 mg/dL 04/11/2025 11:06 AM [facility] Glucose 127(H) 70 - 99 mg/dL 04/11/2025 11:06 AM [facility] Calcium 9.6 8.5 - 10.5 mg/dL 04/11/2025 11:06 AM [facility] eGFR 106 >59 mL/min/1.7 3m2 04/11/2025 11:06 AM [facility] Comment:Estimated glomerular filtration rate calculated using the CKD-EPI refit equation. Anion Gap 13 3 - 17 mmol/L 04/11/2025 11:06 AM [facility] Blood (Blood) Venipuncture / Unknown 04/11/2025 10:13 AM EST 04/11/2025 10:26 AM EST Tashi Quintanilla MD LAB BLOOD BKR ORD ERABLES Final Result [address] [address] * SARS-CoV-2, INFLUENZA A/B, PCR (04/11/2025 9:56 AM EST) SARS-CoV-2 RNA PCR Not Detected Not Detected 04/11/2025 10:26 AM [facility] Influenza A PCR Not Detected Not Detected 04/11/2025 10:26 AM [facility] Influenza B PCR Not Detected Not Detected 04/11/2025 10:26 AM [facility] Swab (Nasopharynx, Bilateral) Non-Blood Collection / Unknown 04/11/2025 9:56 AM EST 04/11/2025 10:03 AM EST Tashi Quintanilla MD LAB GENERAL ORDER JANEL Final Result Performing Organization Address City/[facility]/ZIP Co de Phone Number [address] [address] * Symptomatic Respiratory Virus Testing Panel (ED/IP) (04/11/2025 9:56 AM EST) SARS Comment 04/11/2025 11:14 AM EST [facility] Comment:This test automatica lly orders a COVID-19 PCR and may add Flu, RSV, or other viral tests based on patient clinical factors and site protocols. Results will appear below and separately in chart review when available. Swab (Nasopharynx, Bilateral) Non-Blood Collection / Unknown 04/11/2025 9:56 AM EST 04/11/2025 10:03 AM EST Tashi Quintanilla MD LAB GENERAL ORDER JANEL Final Result Performing Organization Address City/[facility]/ZIP Co de Phone Number [address] [address] * ECG 12-LEAD (04/11/2025 9:49 AM EST) Only the most recent of2 resultswithin the time period is included. Pathologist [facility] Ventricular Rate EKG/MIN 103 BPM [facility] Atrial Rate 103 BPM [facility] [place] Interval 162 ms [facility] QRS Duration 122 ms [facility] QT Interval 360 ms [facility] QTC Interval 471 ms [facility] P [place] 68 degrees [facility] R Wave [place] 66 degrees [facility] T Wave [place] 48 degrees [facility] 04/11/2025 9:49 AM EST 04/13/2025 3:23 PM EST Narrative [facility] - 04/13/2025 3:23 PM EST Sinus tachycardia with Premature atrial complexes with Aberrant conduction Right bundle branch block Abnormal ECG When compared with ECG of 04-Apr-2025 13:50, Aberrant conduction is now Present Confirmed by Magdy Garcia ([id number]) on 04/13/2025 3:23:25 PM us Tashi Quintanilla MD ECG ORDERABLES F inal Result Performing Organization Address City/[facility]/ZIP Co de Phone Number [email or web address] * Lab Add-On (04/04/2025 3:52 PM EST) Pathologist [facility] Specimen Date/Time 04/04/2025 10:57 PM [facility] Test Requested Free T 4 04/04/2025 10:57 PM [facility] Specimen Description 04/04/2025 10:57 PM [facility] Comments 04/04/2025 10:57 PM [facility] Was this request processed? Yes 04/04/2025 10:57 PM [facility] Other (Other) 04/04/2025 3:5 2 PM EST 04/04/2025 3:52 PM EST Jonah Turner MD LAB GENERAL ORDERABLES Linsey l Result Performing Organization Address City/[facility]/ZIP Co de Phone Number [address] [address] * T4, Free (04/04/2025 2:06 PM EST) Only the most recent of2 resultswithin the time period is included. T4, Free 1.6 0.9 - 1.8 ng/dL 04/04/2025 5:01 PM [facility] Blood (Blood) Venipuncture / Unknown 04/04/2025 2:06 PM EST 04/04/2025 2:10 PM EST Jonah Turner MD LAB BLOOD BKR ORDERABLES Fi nal Result Performing Organization Address City/[facility]/ZIP Co de Phone Number [address] [address] * (ABNORMAL) Renal Panel (03/30/2025 2:17 PM EST) Sodium 132(L) 136 - 145 mmol/L 03/30/2025 3:17 PM [facility] Potassium 4.3 3.4 - 5.1 mmol/L 03/30/2025 3:17 PM [facility] Chloride 94(L) 98 - 107 mmol/L 03/30/2025 3:17 PM [facility] CO2 27 20 - 31 mmol/L 03/30/2025 3:17 PM [facility] Anion Gap 11 3 - 17 mmol/L 03/30/2025 3:17 PM [facility] BUN 10 6 - 23 mg/dL 03/30/2025 3:17 PM [facility] Creatinine 0.60 0.50 - 1.00 mg/dL 03/30/2025 3:17 PM [facility] eGFR 106 >59 mL/min/1.7 3m2 03/30/2025 3:17 PM [facility] Comment:Estimated glomerular filtration rate calculated using the CKD-EPI refit equation. Glucose 131(H) 70 - 99 mg/dL 03/30/2025 3:17 PM [facility] Calcium 9.6 8.5 - 10.5 mg/dL 03/30/2025 3:17 PM [facility] Phosphorus 3.2 2.5 - 4.5 mg/dL 03/30/2025 3:17 PM [facility] Albumin 4.8 3.5 - 5.2 g/dL 03/30/2025 3:17 PM [facility] Blood (Blood) Venipuncture / Unknown 03/30/2025 2:17 PM EST 03/30/2025 2:22 PM EST us Narcisa Cohn MD LAB BLOOD BKR ORDERABLES Final Result [address] [address] * Thyroid Stimulating Hormone (TSH) (03/30/2025 2:17 PM EST) TSH 3.81 0.40 - 5.00 uIU/mL 03/30/2025 3:17 PM [facility] Blood (Blood) Venipuncture / Unknown 03/30/2025 2:17 PM EST 03/30/2025 2:22 PM EST us Narcisa Cohn MD LAB BLOOD BKR ORDERABLES Final Result [address] [address] * PAP SMEAR FOR RESULT ENTRY ONLY (01/30/2017) Pap smear + HPV Historical Provider HEALTH MAINTENANCE Final Result * (ABNORMAL) Outside HDL (11/07/2016) HDL - External 36(A) 40 - 80 [...] or Most Recently Relevant to Health Maintenance Additional Health Concerns Infection Onset Date Last Indicated Resp-Risk 04/11/2025 04/11/2025 Insurance [facility] MEDICARE REPLACEMENT GILES HENDRICKSON [id number] [facility] MEDICARE REPLACEMENT [facility] MEDICARE REPLACEMENT [facility] MEDICARE REPLACEMENT [facility] MEDICARE REPLACEMENT [facility] C[facility] MEDICARE REPLACEMENT Care Teams Meat Counter Worker Relationship Specialty Start Date End Date Leonardo Perez PA [facility] [place] [address] PCP - General 05/08/22 Nichole Cabezas, PAIRING MACHINE OPERATOR [address] [place] [address] [email or web address] Historical LMR Provider 02/12/17 Self-Referred, Patient 05/08/22 Additional Source Comments The information contained in this document represents components of the legal health record. It is not the complete legal health record.[facility]
--- OUTSIDE RECORDS SUMMARY | 2025-04-18 10:35 | XMS_ITS | Encounter Summary ---
Author Organization [facility] Address [address] [place] [address] Phone Care Team Providers Care Mechanical Detailer Name Role Phone Santiago Prince MD Unavailable Nichole Cabezas OFFSET PLATE PREPARATION SUPERVISOR Unavailable [phone] Mohit Sierra MD Unavailable [phone] Pcp, Unknown Primary Care Provider Unavailabl e Pcp, Unknown Primary Care Provider Unavailabl e Leonardo Perez Primary Care Provider + Self-Referred, Patient Unavailable Unavailab le Encounter Details Date Type Department Care Team (Late st Contact Info) Description 02/09/2018 Procedure Pass [facility], Ct Scan [facility] [address] [place] [address] Social History Tobacco Use Types Packs/Day Years [...] st Contact Info) Description 04/10/2025 Procedure Pass [facility] [address] [place] [address] 04/29/2025 10:40 AM EST Office Visit [facility] [address] [place] [address] Narcisa Cohn MD [address] [place] [address] [email or web address] 05/27/2025 3:45 PM EST Appointment [facility] [address] [place] [address] Farhat Caro DO [address] [place] [address] [place] [address] 06/10/2025 12:30 PM EST Office Visit [facility] [address] [place] [address], [address] [address] Jayla Wagoner CNP [address] [place] [address] [email or web address] documented as of this encounter Visit Diagnoses Not on filedocumented in this encounter Additional Health Concerns Infection Onset Date Last Indicated Resolved Time Resp-Risk 04/11/2025 04/11/2025 documented as of this encounter Care Teams Mechanical Detailer Relationship Specialty Start Date End Date Pcp, Unknown PCP - General 05/20/19 08/01/20 Pcp, Unknown PCP - General 08/02/20 05/07/22 Leonardo Perez PA [address] [place] [address] PCP - General 05/08/22 Santiago Prince MD [address] [place] [address], [address] [address] Historical LMR Provider 02/12/17 05/07/21 [place]ichole figueroa CNP [address] [facility], 2nd [place] [address] [email or web address] Historical LMR Provider 02/12/17 Mohit Sierra MD [address] [place] [address] [email or web address] Historical LMR Provider 02/12/17 05/07/21 Self-Referred, Patient 05/08/22 documented as of this encounter Additional Source Comments The information contained in this document represents components of the legal health record. It is not the complete legal health record.[facility]
--- OUTSIDE RECORDS SUMMARY | 2025-04-18 10:35 | XMS_ITS | Encounter Summary ---
Author Organization [facility] Address [address] [facility] [address] [place] [address] Phone Care Team Providers Care Bucket Turner Name Role Phone Santiago Prince MD Unavailable Nichole Cabezasz ASSET PROTECTION ASSISTANT Unavailable [phone] Mohit Sierra MD Unavailable [phone] Unknown, Unknown Primary Care Provider Unarosangela randhawa Pcp, Unknown Primary Care Provider Unavailabl e Pcp, Unknown Primary Care Provider Unavailabl e Leonardo Perez Primary Care Provider + Self-Referred, Patient Unavailable Unavailab le Encounter Details Date Type Department Care Team (Late st Contact Info) Description 02/17/2017 Ancillary Orders [facility] [address] [place] [address] Mohit Sierra MD [address] [place] [address] ESAU GOLD [address] [email or web address] Diagnosis unknown Social History Tobacco Use Types [...] Procedure Pass [facility] 22 [place] [address] 04/29/2025 10:40 AM EST Office Visit [facility] 22 [place] [address] Narcisa Cohn MD [address] [place] [address] [email or web address] 05/27/2025 3:45 PM EST Appointment [facility] [address] [place] [address] Farhat Caro DO [address] [place] [address] 06/10/2025 12:30 PM EST Office Visit [facility] [address] [place] [address], [address] [address] Jayla Wagoner CNP [address] [place] [address] [email or web address] documented as of this encounter Visit Diagnoses Diagnosis Diagnosis unknown documented in this encounter Additional Health Concerns Infection Onset Date Last Indicated Resolved Time Resp-Risk 04/11/2025 04/11/2025 documented as of this encounter Care Teams Bucket Turner Relationship Specialty Start Date End Date Unknown, Unknown, [address] [address] PCP - General 02/17/17 02/28/17 Pcp, Unknown PCP - General 05/20/19 08/01/20 Pcp, Unknown PCP - General 08/02/20 05/07/22 Leonardo Perez PA [address] [place] [address] PCP - General 05/08/22 Santiago Prince MD [address] [place] [address], [address] [address] [email or web address] Historical LMR Provider 02/12/17 05/07/21 Nichole Cabezas CNP [address] [facility], 2nd [place] [address] [email or web address] Historical LMR Provider 02/12/17 Mohit Sierra MD [address] [place] [address] [email or web address] Historical LMR Provider 02/12/17 05/07/21 Self-Referred, Patient 05/08/22 documented as of this encounter Additional Source Comments The information contained in this document represents components of the legal health record. It is not the complete legal health record.[facility]
--- OUTSIDE RECORDS SUMMARY | 2025-04-18 10:35 | XMS_ITS | Encounter Summary ---
Author Organization [facility] Address [address] [facility] [address] [place] [address] Phone Care Team Providers Care Automobile Insurance Claim Examiner Name Role Phone Santiago Prince MD Unavailable Nichole Cabezas LIVESTOCK TRADER Unavailable [phone] Mohit Sierra MD Unavailable [phone] Pcp, Unknown Primary Care Provider Unavailabl e Pcp, Unknown Primary Care Provider Unavailabl e Leonardo Perez Primary Care Provider + Self-Referred, Patient Unavailable Unavailab le Encounter Details Date Type Department Care Team (Latest Contact Info) Description 03/01/2017 Transcribe Orders [facility] 30 [place] [address] Nichole Cabezas, LIVESTOCK TRADER [address] [facility], 2nd [place] [address] [email or web address] Chronic lymphocytic thyroiditis (Primary Dx) Social History [...] st Contact Info) Description 04/10/2025 Procedure Pass [facility] [address] [place] [address] 04/29/2025 10:40 AM EST Office Visit [facility] [address] [place] [address] Narcisa Cohn MD [address] [place] [address] 3[address] [place] [address] [email or web address] 05/27/2025 3:45 PM EST Appointment [facility] [address] [place], [place] [address] Farhat Caro DO [address] [address] 06/10/2025 12:30 PM EST Office Visit [facility] [address], [address] [place] [address] Jyala Wagoner CNP [address] [place] [address], [address] [address] [email or web address] documented as of this encounter Procedures Procedure Name Priority Date/Time Associated Diagnosis Comments COMPREHENSIVE METABOLIC PANEL (CMP) Routine 03/01/2017 12:50 PM EDT Chronic lymphocytic thyroiditis THYROID STIMULATING HORMONE (TSH) Routine 03/01/2017 12:50 PM EDT Chronic lymphocytic thyroiditis documented in this encounter Results * (ABNORMAL) TSH (03/01/2017 12:50 PM EDT) TSH 0.02(L) 0.27 - 4.20 uIU/mL [facility] Blood 03/01/2017 12:5 0 PM EDT 03/01/2017 12:54 PM EDT [facility]OD BKR ORDERABLES F inal Result [address] [address] * (ABNORMAL) Comprehensive metabolic panel (03/01/2017 12:50 PM EDT) SODIUM 133 133 - 146 mmol/L [facility] POTASSIUM 3.2(L) 3.3 - 5.1 mmol/L [facility] CHLORIDE 93(L) 96 - 108 mmol/L [facility] CO2 26 21 - 35 mmol/L [facility] BUN 12 6 - 19 mg/dL [facility] CREATININE 0.60 0.5 - 1.5 mg/dL [facility] GLUCOSE 126(H) 70 - 99 mg/dL [facility] ALBUMIN 4.1 3.9 - 4.8 g/dL [facility] TOTAL PROTEIN 7.5 6.5 - 8.0 g/dL [facility] CALCIUM 9.7 8.4 - 10.3 mg/dL [facility] ALKALINE PHOSPHATASE 68 39 - 117 U/L [facility] TOTAL BILIRUBIN 0.5 0 - 1.2 mg/dL [facility] AST 14 0 - 37 U/L [facility] ALT 16 0 - 40 U/L [facility] GLOBULIN 3.4 1 - 4.8 g/dL [facility] EGFR >60 60 - 1000 mL/min/1.7 3m2 [facility] Comment:Abnormal if <60. If patient is -Jamaican, multiply the result by 1.21. ANION GAP 17 10 - 20 mmol/L [facility] Blood 03/01/2017 12:5 0 PM EDT 03/01/2017 12:54 PM EDT [facility] BLOOD BKR ORDERABLES F inal Result [address] [address] documented in this encounter Visit Diagnoses Diagnosis Chronic lymphocytic thyroiditis- Primary documented in this encounter Additional Health Concerns Infection Onset Date Last Indicated Resolved Time Resp-Risk 04/11/2025 04/11/2025 documented as of this encounter Care Teams Automobile Insurance Claim Examiner Relationship Specialty Start Date End Date Pcp, Unknown PCP - General 05/20/19 08/01/20 Pcp, Unknown PCP - General 08/02/20 05/07/22 Leonardo Perez PA [address] [place] [address] PCP - General 05/08/22 Santiago Prince MD 22 [facility], [address] [place] [address] [email or web address] Historical LMR Provider 02/12/17 05/07/21 Nichole Cabezas CNP [address] [facility], 2nd [place] [address] [email or web address] Historical LMR Provider 02/12/17 Mohit Sierra MD [address] [address] [email or web address] Historical LMR Provider 02/12/17 05/07/21 Self-Referred, Patient 05/08/22 documented as of this encounter Additional Source Comments The information contained in this document represents components of the legal health record. It is not the complete legal health record.[facility]
--- OUTSIDE RECORDS SUMMARY | 2025-04-18 10:35 | XMS_ITS | Encounter Summary ---
Author Organization [facility] Address [address] [place] [address] Phone Care Team Providers Care Army Helicopter Pilot Name Role Phone Santiago Prince MD Unavailable Nichole Cabezasz SYSTEMS DESIGN ENGINEER Unavailable [phone] Mohit Sierra MD Unavailable [phone] Unknown, Unknown Primary Care Provider Unarosangela randhawa Pcp, Unknown Primary Care Provider Unavailabl e Pcp, Unknown Primary Care Provider Unavailabl e Leonardo Perez Primary Care Provider + Self-Referred, Patient Unavailable Unavailab le Encounter Details Date Type Department Care Team (Late st Contact Info) Description 02/17/2017 Ancillary Orders [facility] [address] [place] [address] Mohit Sierra MD [address] [place] [address] ESAU GOLD [address] [email or web address] Diagnosis unknown Social History Tobacco Use Types [...] Procedure Pass [facility] 22 [place] [address] 04/29/2025 10:40 AM EST Office Visit [facility] 22 [place] [address] Narcisa Cohn MD [address] [place] [address] [email or web address] 05/27/2025 3:45 PM EST Appointment [facility] [address] [place] [address] Farhat Caro DO [address] [place] [address] 06/10/2025 12:30 PM EST Office Visit [facility] [address] [place] [address], [address] [address] Jayla Wagoner CNP [address] [place] [address] [email or web address] documented as of this encounter Visit Diagnoses Diagnosis Diagnosis unknown documented in this encounter Additional Health Concerns Infection Onset Date Last Indicated Resolved Time Resp-Risk 04/11/2025 04/11/2025 documented as of this encounter Care Teams Army Helicopter Pilot Relationship Specialty Start Date End Date Unknown, Unknown, [address] [address] PCP - General 02/17/17 02/28/17 Pcp, Unknown PCP - General 05/20/19 08/01/20 Pcp, Unknown PCP - General 08/02/20 05/07/22 Leonardo Perez PA [address] [place] [address] PCP - General 05/08/22 Santiago Prince MD [address] [place] [address], [address] [address] [email or web address] Historical LMR Provider 02/12/17 05/07/21 Nichole Cabezas CNP 15 [facility], 2nd [place] [address] [email or web address] Historical LMR Provider 02/12/17 Mohit Sierra MD [address] [place] [address] [email or web address] Historical LMR Provider 02/12/17 05/07/21 Self-Referred, Patient 05/08/22 documented as of this encounter Additional Source Comments The information contained in this document represents components of the legal health record. It is not the complete legal health record.[facility]
--- OUTSIDE RECORDS SUMMARY | 2025-04-18 10:35 | XMS_ITS | Encounter Summary ---
Author Organization [facility] Address [address] [place] [address] Phone Care Team Providers Care Smokehouse Operator Name Role Phone Santiago Prince MD Unavailable Nichole Cabezas TRUCKMAN Unavailable [phone] Mohit Sierra MD Unavailable [phone] Pcp, Unknown Primary Care Provider Unavailabl e Pcp, Unknown Primary Care Provider Unavailabl e Leonardo Perez Primary Care Provider + Self-Referred, Patient Unavailable Unavailab le Encounter Details Date Type Department Care Team (Late st Contact Info) Description 01/08/2018 Procedure Pass [facility], Ct Scan [facility] 30 [place] [address] Social History Tobacco Use Types Packs/Day Years [...] st Contact Info) Description 04/10/2025 Procedure Pass [facility] [address] [place] [address] 04/29/2025 10:40 AM EST Office Visit [facility] [address] [place] [address] Narcisa Cohn MD [address] [place] [address] [email or web address] 05/27/2025 3:45 PM EST Appointment [facility] [address] [place] [address] Farhat Caro DO [address] [place] [address] [place] [address] 06/10/2025 12:30 PM EST Office Visit [facility] [address] [place] [address], [address] [address] Jayla Wagoner CNP [address] [place] [address] [email or web address] documented as of this encounter Visit Diagnoses Not on filedocumented in this encounter Additional Health Concerns Infection Onset Date Last Indicated Resolved Time Resp-Risk 04/11/2025 04/11/2025 documented as of this encounter Care Teams Smokehouse Operator Relationship Specialty Start Date End Date Pcp, Unknown PCP - General 05/20/19 08/01/20 Pcp, Unknown PCP - General 08/02/20 05/07/22 Leonardo Perez PA [address] [place] [address] PCP - General 05/08/22 Santiago Prince MD [address] [place] [address], [address] [address] Historical LMR Provider 02/12/17 05/07/21 [place] figueroa CNP 15 [facility], 2nd [place] [address] [email or web address] Historical LMR Provider 02/12/17 Mohit Sierra MD [address] [place] [address] [email or web address] Historical LMR Provider 02/12/17 05/07/21 Self-Referred, Patient 05/08/22 documented as of this encounter Additional Source Comments The information contained in this document represents components of the legal health record. It is not the complete legal health record.[facility]
--- OUTSIDE RECORDS SUMMARY | 2025-04-18 10:35 | XMS_ITS | Encounter Summary ---
Author Organization [facility] Address [address] [place] [address] Phone Care Team Providers Care Protective Signal Repairer Helper Name Role Phone Santiago Prince MD Unavailable Nichole Cabezas WORLD TRAVEL COUNSELOR Unavailable [phone] Mohit Sierra MD Unavailable [phone] Pcp, Unknown Primary Care Provider Unavailabl e Pcp, Unknown Primary Care Provider Unavailabl e Leonardo Perez Primary Care Provider + Self-Referred, Patient Unavailable Unavailab le Encounter Details Date Type Department Care Team (Late st Contact Info) Description 08/14/2018 Procedure Pass [facility] Endoscopy Admitting Dept Virtual Department 30 [place] [address] Social History Tobacco Use Types Packs/Day Years [...] Department Care Team (Late Contact Info) Description 04/10/2025 Procedure Pass [facility] [address] [place] [address] 04/29/2025 10:40 AM EST Office Visit [facility]ology Clinic 22 [place] [address] Narcisa Cohn MD [address] [place] [address] [email or web address] 05/27/2025 3:45 PM EST Appointment [facility] 22 [place] [address] Farhat Caro DO [address] [place] [address] 06/10/2025 12:30 PM EST Office Visit [facility] [address], [address] [address] Jayla Wagoner CNP [address] [place] [address] [email or web address] documented as of this encounter Visit Diagnoses Not on filedocumented in this encounter Additional Health Concerns Infection Onset Date Last Indicated Resolved Time Resp-Risk 04/11/2025 04/11/2025 documented as of this encounter Care Teams Protective Signal Repairer Helper Relationship Specialty Start Date End Date Pcp, Unknown PCP - General 05/20/19 08/01/20 Pcp, Unknown PCP - General 08/02/20 05/07/22 Leonardo Perez PA [address] [place] [address] PCP - General 05/08/22 Santiago Prince MD 22 [facility], [address] [address] Historical LMR Provider 02/12/17 05/07/21 Nichole Cabezas, WORLD TRAVEL COUNSELOR [address] [facility], 2nd [place] [address] [email or web address] Historical LMR Provider 02/12/17 Mohit Sierra MD [address] [address] [email or web address] Historical LMR Provider 02/12/17 05/07/21 Self-Referred, Patient 05/08/22 documented as of this encounter Additional Source Comments The information contained in this document represents components of the legal health record. It is not the complete legal health record.[facility]
--- OUTSIDE RECORDS SUMMARY | 2025-04-18 10:35 | XMS_ITS | Encounter Summary ---
Author Organization [facility] Address [address] [place] [address] Phone Care Team Providers Care Cigar Packer And Picker Name Role Phone Santiago Prince MD Unavailable Nichole Cabezas COMMODITY MERCHANT Unavailable [phone] Mohit Sierra MD Unavailable [phone] Pcp, Unknown Primary Care Provider Unavailabl e Pcp, Unknown Primary Care Provider Unavailabl e Leonardo Perez Primary Care Provider + Self-Referred, Patient Unavailable Unavailab le Encounter Details Date Type Department Care Team (Late st Contact Info) Description 05/23/2018 Procedure Pass [facility]oscopy Admitting Dept Virtual Department 30 [place] [address] Social History Tobacco Use Types Packs/Day Years [...] (Late Contact Info) Description 04/10/2025 Procedure Pass [facility] [address] [place] [address] 04/29/2025 10:40 AM EST Office Visit [facility]ocr[facility]ology Clinic 22 [place] [address] Narcisa Cohn MD [address] [place] [address] [email or web address] 05/27/2025 3:45 PM EST Appointment [facility] 22 [place] [address] Farhat Caro DO [address] [place] [address] 06/10/2025 12:30 PM EST Office Visit [facility] [address], [address] [address] Jayla Wagoner CNP [address] [place] [address] [email or web address] documented as of this encounter Visit Diagnoses Not on filedocumented in this encounter Additional Health Concerns Infection Onset Date Last Indicated Resolved Time Resp-Risk 04/11/2025 04/11/2025 documented as of this encounter Care Teams Cigar Packer And Picker Relationship Specialty Start Date End Date Pcp, Unknown PCP - General 05/20/19 08/01/20 Pcp, Unknown PCP - General 08/02/20 05/07/22 Leonardo Peerz PA [address] [place] [address] PCP - General 05/08/22 Santiago Prince MD 22 [facility], [address] [address] Historical LMR Provider 02/12/17 05/07/21 Nichole Cabezas, COMMODITY MERCHANT 15 [facility], 2nd [place] [address] Historical LMR Provider 02/12/17 Mohit Sierra MD [address] [address] [email or web address] Historical LMR Provider 02/12/17 05/07/21 Self-Referred, Patient 05/08/22 documented as of this encounter Additional Source Comments The information contained in this document represents components of the legal health record. It is not the complete legal health record.[facility]
--- OUTSIDE RECORDS SUMMARY | 2025-04-18 10:35 | XMS_ITS | Encounter Summary ---
Author Organization [facility] Address [address] [place] [address] [place] [address] Phone Care Team Providers Care Lathe Machine Operator Name Role Phone Nichole Cabezas SOFTBALL COACH Unavailable [phone] Leonardo Perez Primary Care Provider + Self-Referred, Patient Unavailable Unavailab le Encounter Details Date Type Department Care Team (Late st Contact Info) Description 08/03/2023 Procedure Pass [facility], Ct Scan [facility] 30 [place] [address] Social History Tobacco Use Types Packs/Day Years [...] st Contact Info) Description 04/10/2025 Procedure Pass [facility] [address] [place] [address] [place] [address] 04/29/2025 10:40 AM EST Office Visit [facility] [address] [place] [address] [place] [address] Narcisa Cohn MD [address] [place] [address] [email or web address] 05/27/2025 3:45 PM EST Appointment [facility] [address] [place] [address] [place] [address] Farhat Caro DO [address] [address] 06/10/2025 12:30 PM EST [facility] [address] [place] [address], [address] [place] [address] Jayla Wagoner CNP [address] [place] [address], [address] [address] [email or web address] documented as of this encounter Visit Diagnoses Not on filedocumented in this encounter Additional Health Concerns Infection Onset Date Last Indicated Resolved Time Resp-Risk 04/11/2025 04/11/2025 documented as of this encounter Care Teams Lathe Machine Operator Relationship Specialty Start Date End Date Leonardo Perez PA [address] [place] [address] PCP - General 05/08/22 Nichole Cabezas CNP 15 [facility], 2nd [place] [address] [email or web address] Historical LMR Provider 02/12/17 Self-Referred, Patient 05/08/22 documented as of this encounter Additional Source Comments The information contained in this document represents components of the legal health record. It is not the complete legal health record.[facility]
--- OUTSIDE RECORDS SUMMARY | 2025-04-18 10:35 | XMS_ITS | Encounter Summary ---
Author Organization [facility] Address [address] [place] [address] [place] [address] Phone Care Team Providers Care Inspector Tester Sorter Name Role Phone Santiago Prince MD Unavailable Nichole Cabezas COMBINE INSPECTOR Unavailable [phone] Mohit Sierra MD Unavailable [phone] Pcp, Unknown Primary Care Provider Unavailabl e Pcp, Unknown Primary Care Provider Unavailabl e Leonardo Perez Primary Care Provider + Self-Referred, Patient Unavailable Unavailab le Encounter Details Date Type Department Care Team (Late st Contact Info) Description 04/29/2018 Ancillary Orders [facility],Outside Imaging [address] [place], [place] [id number] System, Provider Not In, PhD [facility] [address] [address] Social History Tobacco Use Types Packs/Day Years [...] (Late Contact Info) Description 04/10/2025 Procedure Pass [facility] [address] [place] [address] 04/29/2025 10:40 AM EST Office Visit [facility] [address] [place] [address] Narcisa Cohn MD [address] [place] [address] [email or web address] 05/27/2025 3:45 PM EST Appointment [facility] [address] [place] [address] Farhat Caro DO [address] [place] [address] [place] [address] 06/10/2025 12:30 PM EST Office Visit [facility] [address], [address] [place] [address] Jayla Wagoner CNP [address] [place] [address], [address] [address] [email or web address] documented as of this encounter [...] documented as of this encounter Care Teams Inspector Tester Sorter Relationship Specialty Start Date End Date Pcp, Unknown PCP - General 05/20/19 08/01/20 Pcp, Unknown PCP - General 08/02/20 05/07/22 Leonardo Perez PA [address] [place] [address] PCP - General 05/08/22 Santiago Prince MD 22 [facility], [address] [place] [address] [email or web address] Historical LMR Provider 02/12/17 05/07/21 Nichole Cabezas CNP [address] [facility], 2nd [place] [address] [email or web address] Historical LMR Provider 02/12/17 Mohit Sierra MD [address] [address] [email or web address] Historical LMR Provider 02/12/17 05/07/21 Self-Referred, Patient 05/08/22 documented as of this encounter Additional Source Comments The information contained in this document represents components of the legal health record. It is not the complete legal health record.[facility]
--- OUTSIDE RECORDS SUMMARY | 2025-04-18 10:35 | XMS_ITS | Encounter Summary ---
Author Organization [facility] Address [address] [place] [address] Phone Care Team Providers Care Layout Worker Name Role Phone Santiago Prince MD Unavailable Nichole Cabezasz CONDUIT INSTALLER Unavailable [phone] Mohit Sierra MD Unavailable [phone] Unknown, Unknown Primary Care Provider Unarosangela randhawa Pcp, Unknown Primary Care Provider Unavailabl e Pcp, Unknown Primary Care Provider Unavailabl e Leonardo Perez Primary Care Provider + Self-Referred, Patient Unavailable Unavailab le Encounter Details Date Type Department Care Team (Late st Contact Info) Description 02/17/2017 Ancillary Orders [facility] [address] [place] [address] Mohit Sierra MD [address] [place] [address] [place] GOLD [address] [email or web address] Assembly Diagnosis unknown Social History Tobacco Use Types [...] Procedure Pass [facility] [address] [place] [address] 04/29/2025 10:40 AM EST Office Visit [facility] [address] [place] [address] Narcisa Cohn MD [address] [place] [address] [email or web address] 05/27/2025 3:45 PM EST Appointment [facility] [address] [place] [address] Farhat Caro DO [address] [id number] 06/10/2025 12:30 PM EST Office Visit [facility] [address], [address] [place] [address] Jayla Wagoner CNP [address] [place] [address], [address] [address] [email or web address] documented as of this encounter [...] unknown Diagnosis unknown documented in this encounter Additional Health Concerns Infection Onset Date Last Indicated Resolved Time Resp-Risk 04/11/2025 04/11/2025 documented as of this encounter Care Teams Layout Worker Relationship Specialty Start Date End Date Unknown, Unknown, [address] [address] PCP - General 02/17/17 02/28/17 Pcp, Unknown PCP - General 05/20/19 08/01/20 Pcp, Unknown PCP - General 08/02/20 05/07/22 Leonardo Perez PA [address] [place] [address] PCP - General 05/08/22 Santiago Prince MD 22 [facility], [address] [place] [address] [email or web address] Historical LMR Provider 02/12/17 05/07/21 Nichole Cabezas CNP 15 [facility], 2nd [place] [address] [email or web address] Historical LMR Provider 02/12/17 Mohit Sierra MD [address] [address] [email or web address] Historical LMR Provider 02/12/17 05/07/21 Self-Referred, Patient 05/08/22 documented as of this encounter Additional Source Comments The information contained in this document represents components of the legal health record. It is not the complete legal health record.[facility]
--- OUTSIDE RECORDS SUMMARY | 2025-04-18 10:35 | XMS_ITS | Data Portability ---
Author Organization [facility] [employer] [facility] Address [address] [place] [phone] Care Team Providers Care School Program Director Name Role Phone [facility] Referring Provider [phone] Assessment Encounter Date Assessment Date Assessment LastModified [...] None recorded. Lab culture, urine 2023 024 [place] [facility] (Centralized Electronic Ordering - All Locations), Patient Can Go To The Location Of Their Choice, [id number] 18:18:26 urinalysis , dipstick 2023 024 [facility], [address] [place] [address], [phone] 4 19:05:08 Referral None recorded. Procedures None recorded. Surgeries None recorded. Imaging None recorded. Medication Orders Bactrim DS 800 mg-160 mg tablet 2023 024 [id number], [address] [place], [place], [id number], 4 15:19:21 Bactrim DS 800 mg-160 mg tablet 2023 [id number], [address] [place], [place], [id number], 15:19:12 Patient TargetsNo targets recorded. Patient InstructionsNo [...] Leukocytes Positi ve Not Available Main - [facility] ed [address] [place] [address], [phone] 05/26/2023 19:03:44 05/26/19 24 05/26/2023 urina lysis , dipst ick Nitrite positi ve Not Available Main - [facility] ed [address] [place] [address], [phone] 05/26/2023 19:03:44 05/26/19 24 05/26/2023 urina lysis , dipst ick Urobilinogen negati ve Not Available Main - [facility] ed [address] [place] [address], [phone] 05/26/2023 19:03:44 05/26/19 24 05/26/2023 urina lysis , dipst ick Protein Positi ve Not Available Main - [facility] ed [address] [place] [address], [address] [place] [address] 05/26/2023 19:03:44 05/26/19 24 05/26/2023 urina lysis , dipst ick pH 6.5 Not Available Main - [facility] [address] [place] [address], [address] [place] [address] 05/26/2023 19:03:44 05/26/19 24 05/26/2023 urina lysis , dipst ick Blood Positi ve Not Available Main - Inst [facility] [address] [place] [address], [address] [place] [address] 05/26/2023 19:03:44 05/26/19 24 05/26/2023 urina lysis , dipst ick Specific [place]ap 1.015 Not Available Main - [facility] [address] [place] [address], [address] [place] [address] 05/26/2023 19:03:44 05/26/19 24 05/26/2023 urina lysis , dipst ick Ketone negati ve Not Available Main - Inst ed [address] [place] [address], [address] [place] [address] 05/26/2023 19:03:44 05/26/19 24 05/26/2023 urina lysis , dipst ick Bilirubin negati ve Not Available Main - [facility] ed [address] [place] [address], [address] [place] [address] 05/26/2023 19:03:44 05/26/19 24 05/26/2023 urina lysis , dipst ick Glucose negati ve Not Available Main - Inst ed [address] [place] [address], [address] [place] [address] 05/26/2023 19:03:44 05/26/19 24 05/26/2023 urina lysis , dipst ick Appearance no sedime nts Not Available Main - Inst [facility] [address] [place] [address], [address] [place] [address] 05/26/2023 19:03:44 05/26/19 24 05/26/2023 urina lysis , dipst ick Color orange Not Available Main - [facility] [address] [place] [address], [address] [place] [address] 05/26/2023 19:03:44 Result Notes None recorded. Medical [...] rate Body height Body temperature Oxygen saturation Body weight Systolic And Diastolic Provider Name and Address Organization Details Last Updated DateTime 4 16 /min 95 /min 165.1 cm 98.8 [degF] 98 % 28525.9 6 g 155/106 mm[Hg] Not Available [facility] 4 15:16:10 Date Recorded Body temperature Respiratory rate Oxygen saturation Heart rate Systolic And Diastolic Provider Name and Address Organization Details Last Updated DateTime 4 98.9 [degF] 16 /min 100 % 78 /min 138/88 mm[Hg] Not Available [facility] 4 19:08:41 Social History None recorded. Functional Status None recorded. Mental Status None recorded. Family History Nothing Reported. Medical History No medical history recorded. Gynecological HistoryNo gynecological history recorded. Obstetrics History GPAL:G 0 P 0 0 0 0 Past Encounters Encounter ID Performer Location Encounter Start Date Encounter Closed Date Diagnosis/Indication Diagnosis SNOMED-CT Code Diagnosis ICD10 Code Diagnosis IMO Codes Diagnosis Note [id number] NIKITA NIXON MD Main - [address] [phone] 05/26/2023 15:16:02 05/27/2023 15:30:59 Urinary symptoms 489202204 R39.9 Evaluation in the field was performed by my special delivery worker colleague, as noted above, I provided real-time [...] her urine culture results at [facility].P t is allergic at Augmentin ( reports tongue swelling and throat closing ) , so I don't feel comfortabl e giving Ceftriaxon e IV . Will start bactrim BID x7 days ( first dose given by special delivery worker ). D/C levaquin ( usual dose for [...] worsening CVA tenderness or any other concerns. [id number] Stacy June MD Main - [address] [phone] 05/29/2023 19:08:38 05/29/2023 21:40:20 Acute urinary tract infection 608688066 N39.0 Health Concerns Section Related Observation LastModified by Organization Detai ls LastModified Time None Recorded Concern Status LastModified by Organization Details LastModified Time None Recorded Advance Directives Directive None Recorded Payers Insurance Date Sequence Insurance Name Policy Number Policy Chan Covered Member ID Chan Member ID Guarantor Name 05/26/2023 1 [facility] - DOS ON OR AFTER 2022 - DUAL ELIGIBLE - SNF OPTIONS AND ONE CARE (MEDICARE REPLACEMENT/ADV ANTAGE - HMO) Basilia Sawyer [id number] Basilia Sawyer Notes Date Note Type Note Provider Name and Address Organization Details Recorded Time 05/26/2023 text/html ROS as noted in the HPI HPI: Can you remove a Winters catheter ? A catheter was put in May 18 in the emergency room. I v e now been on antibiotics for 4 days [...] ...................... ...................... ...................... ...................... ...................... ...................... ......... Hot Roll Laminator Note From Arsalan Rosenbaum: Pt reports winters placed at [facility] on 05/18. Since returning home the pt [...] +NOEMÍ, +NIT, +PRO, +BLO. UC sent to [facility]. Pt treated with bactrim DS. Pt thoroughly educated on catheter care and s/sx that would indicate the ED. Pt to f/u with urology on Sunday. ...................... ...................... ...................... ...................... ...................... ...................... ......... 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 Denies CP Stacy June MD [address] [place], [place], [address], [employer] 05/29/2023 19:28:59 OBGyn Episode No OBEpisode recorded.
--- OUTSIDE RECORDS SUMMARY | 2025-04-18 10:35 | XMS_ITS | Encounter Summary ---
Author Organization [facility] Address [address] [place] [address] Phone Care Team Providers Care Artillery Officer Name Role Phone Nichole Cabezas SOFTWARE APPLICATIONS SPECIALIST Unavailable [phone] Leonardo Perez Primary Care Provider + Self-Referred, Patient Unavailable Unavailab le Encounter Details Date Type Department Care Team (Late st Contact Info) Description 04/16/2025 Telephone [facility] [address], [address] [place], [place] [phone] Janessa [email or web address] Social History Tobacco Use Types Packs/Day Years [...] as of this encounter Progress Notes * Talia Almonte, RN - 04/16/2025 3:37 PM EST Lft detailed msg informing pt * Talia Almonte, RN - 04/16/2025 9:33 AM EST Sandra can you review? Pt states she has been having tingling in her face and buzzing in her ears for the past two days Other ER note from 04/11 states this has been going on for 3 weeks And states if she is doing simple things like washing dishes her bp spikes to 180 systolic She she sits and rest and it goes back to normal 90/60 I asked if she is taking her bp as she is washing her dishes and she shouted no, I sit down She is on lisinopril and takes this at 5 am She reached out to endocrinology and they apparently advised to reach out to us ? * Janessa Villafana - 04/16/2025 9:21 AM EST Pt was last seen 04/10 by THERESE and pt reports blood pressure spiking 160's buzzing in head and yesterday + today has tingling in head and face pt can be reached at [phone] documented in this encounter Plan of Treatment Upcoming Encounters Date Type Department Care Team (Late st Contact Info) Description 04/10/2025 Procedure Pass [facility] [address] [place] [address] [place] [address] 04/29/2025 10:40 AM EST Office Visit [facility] [address] [place] [address] Narcisa Cohn MD [address] [place] [address] [address] [place] [address] [email or web address] 05/27/2025 3:45 PM EST Appointment [facility] [address] [place] [address] Farhat Caro DO 22 [facility] [address] [place] [address] 06/10/2025 12:30 PM EST Office Visit [facility] [address] [place] [address], [address] [place] [address] Jayla Wagoner CNP 22 [facility], [address] [place] [address] [email or web address] documented as of this encounter Visit Diagnoses Not on filedocumented in this encounter Additional Health Concerns Infection Onset Date Last Indicated Resolved Time Resp-Risk 04/11/2025 04/11/2025 documented as of this encounter Care Teams Artillery Officer Relationship Specialty Start Date End Date Leonardo Perez PA [address] [place] [address] PCP - General 05/08/22 Nichole Cabezas CNP 15 [facility], 2nd [place] [address] [email or web address] Historical LMR Provider 02/12/17 Self-Referred, Patient 05/08/22 documented as of this encounter Additional Source Comments The information contained in this document represents components of the legal health record. It is not the complete legal health record.[facility]
[2025-04-18 10:59] LABS: Hematocrit 40.3 % (37.0-47.0); Hemoglobin 13.8 g/dl (12.0-16.0); Mean Corpuscular HGB Conc 34.2 g/dl (31.0-35.0); Mean Corpuscular Hemoglobin 29.5 pg (27.0-33.0); Mean Corpuscular Volume 86.1 fL (80.0-98.0); NRBC Abs Auto 0.000 X10*3/uL (0.0-0.012); NRBC Pct Auto 0.0 /100WBC (0.0-0.2); Platelet Count 297 X10*3/uL (160-400); Red Blood Count 4.68 X10*6/uL (4.20-5.50); White Blood Count 5.3 X10*3/uL (4.8-10.8)
[2025-04-18 11:39] LABS: Alanine Aminotransferase 21 U/L (0-31); Albumin Level 5.0 g/dL (3.5-5.0); Alkaline Phosphatase 44 U/L (39-117); Anion Gap 14 (12-20); Aspartate Amino Transferase 23 U/L (5-31); Blood Urea Nitrogen 12 mg/dL (9-16); Calcium 10.2 mg/dL (8.4-10.2); Carbon Dioxide 26 mmol/L (22-29); Chloride 101 mmol/L (96-108); Cholesterol 254 mg/dL (<200); Estimated Glomerular Filt Rate > 60; HDL Cholesterol 57 mg/dL (>40); Potassium 4.3 mmol/L (3.3-5.1); Sodium 137 mmol/L (135-145); Total Protein 7.8 g/dL (6.5-8.0); Triglycerides 115 mg/dL (<150)
== END 2025-04-18 10:33 | disposition home or self-care (01) ==
LOC: HO.LAB 10:32
PROVIDERS: PCP Physician Assistant; Visit Provider Physician Assistant
DX: E06.3 Autoimmune thyroiditis (principal); E83.39 Other disorders of phosphorus metabolism; E78.2 Mixed hyperlipidemia; K21.9 Gastro-esophageal reflux disease without esophagitis
CPT/HCPCS: 36415; 80053; 80061; 84100; 84443; 85027